=== PATIENT | male | born 1940 ===

== ENCOUNTER 2022-12-26 20:37 | Emergency (ER) | payer MEDICARE, SELFPAY ==
--- NOTE | ~2022-12-26 | CT_ITS ---
EXAMINATION: CT ABDOMEN AND PELVIS WITHOUT CONTRAST CLINICAL INFORMATION: Low back pain. Rule out kidney stone vs. AAA. COMPARISON: None available. TECHNIQUE: Multidetector volumetric imaging was performed from the superior aspect of the liver through the pubic symphysis. Sagittal and coronal reformatted images were obtained on the technologist's workstation. This CT examination was performed using dose optimization techniques as appropriate, variously including the following: *Automated exposure control *Adjustment of mA and/or kV according to patient size (this includes techniques or standardized protocols for targeted exams where dose is matched to indication/reason for exam; i.e. extremities or head) *Use of iterative reconstruction technique DLP: 423 mGy-cm FINDINGS: LUNG BASES: Calcific atherosclerosis is present in the coronary arteries. Heart is normal in size. LIVER, GALLBLADDER, AND BILIARY TREE: The liver is normal in size, shape, and attenuation. No focal hepatic lesion or biliary ductal dilatation is present. The gallbladder is unremarkable with no evidence of radiopaque gallstones, gallbladder wall thickening, or obvious pericholecystic inflammatory changes. PANCREAS: Mild pancreatic atrophy. No ductal dilatation. SPLEEN: Unremarkable. ADRENAL GLANDS: Unremarkable. KIDNEYS AND URETERS: Multiple right renal cysts, measuring 3.2 cm at the right renal pelvis and 2.8 cm at the posterior aspect of the right interpolar region. No suspicious findings on these unenhanced studies. Kidneys normal in size with mild bilateral perinephric fat stranding. Multiple calcifications are present in the renal sinuses bilaterally at the level of the calyces, favored to correspond to calculi. These measure up to 4 cm in diameter at the lower pole of the right kidney and 5 mm adenopathy pole calyx in the left kidney. No hydroureter or hydronephrosis. BLADDER: A 1.5 cm dependent calculus is present within the bladder. Bladder wall is normal in thickness. GASTROINTESTINAL TRACT: Stomach, small bowel, and colon are normal in caliber. No additional bowel wall thickening. Normal appendix. Moderate to large volume stool is present throughout the colon. There is mild perirectal fat stranding without a clear cause on these images. No significant diverticular disease in this region. Volume of stool at the rectum is relatively small. No intracranial free fluid or free air. ABDOMINAL WALL: No significant hernia is appreciated. Mild anasarca. LYMPH NODES: Retroperitoneal adenopathy is evident in the upper abdomen, the largest of which s 4.8 x 2.9 cm left periaortic lymph node seen on image 25/82 of series 3. A cluster of nodes surrounding the IVC in this region each measure 1.5 to 2 cm in short axis. Additional bilateral iliac chain adenopathy is apparent with a 1.9 cm (short axis) left external iliac node and a 1.2 cm right external iliac node. VASCULAR: Marked calcific atherosclerosis is present throughout the abdominal aorta and branch vessels without appreciable aneurysmal dilatation. PELVIC VISCERA: There is marked heterogeneous enlargement of the prostate gland, measuring 8.3 x 7.6 x 8.5 cm (transverse by AP by craniocaudal) with asymmetric nodular thickening of the left seminal vesicle OSSEOUS STRUCTURES: Marked degenerative spondylosis is present in the lumbar spine with osteophytes in both hips and SI joints. No acute osseous abnormalities. Specifically, no aggressive osseous lesions are identified. CT/CT abdomen pelvis wo IV con IMPRESSION: 1. Marked heterogeneous enlargement of the prostate gland with asymmetric nodular thickening of the left seminal vesicle. Particularly in light of the iliac and para-aortic and retroperitoneal adenopathy, urologic consultation is advised as these findings are concerning for a primary prostatic malignancy. 2. Bilateral nephrolithiasis without evidence of obstructive uropathy. A 1.5 cm calculus is present in the bladder. 3. Moderate to large volume of stool throughout the colon. Mild perirectal fat stranding is of uncertain etiology, though could be due to a mild proctitis. No significant diverticular disease in this region. 4. Marked degenerative spondylosis in the lumbar spine. Fleischner guidelines were followed.
[2022-12-26 20:56] VITALS: BP 140/60; PULSE 129; O2SAT 97
[2022-12-26 21:03] VITALS: BP 168/72; PULSE 102; RESP 17; TEMP 37; O2SAT 96
[2022-12-26 21:12] VITALS: BMI 23.5
[2022-12-26 21:13] LABS: MANUAL DIFF FLAG NO
[2022-12-26 21:17] LABS: Basophils Percent Auto 0.3 % (0-2); Eosinophils Absolute Auto 0.1 X10*3/uL (0.0-0.4); Eosinophils Percent Auto 1.1 % (0-4); Hematocrit 38.5 % (42.0-52.0); Hemoglobin 13.2 g/dl (14.0-18.0); Imm Gran Abs Auto 0.04 X10*3/uL (0.00-0.03); Imm Gran Pct Auto 0.4 % (0.0-0.4); Lymphocytes Absolute Auto 0.8 X10*3/uL (1.2-4.9); Lymphocytes Percent Auto 7.4 % (20-40); Mean Corpuscular HGB Conc 34.3 g/dl (31.0-36.0); Mean Corpuscular Hemoglobin 30.3 pg (27.0-33.0); Mean Corpuscular Volume 88.3 fL (80.0-98.0); Mean Platelet Volume 9.7 fL (9.4-12.4); Monocytes Absolute Auto 0.9 X10*3/uL (0.1-1.2); Monocytes Percent Auto 7.7 % (2-11); Neutrophils Absolute Auto 9.5 x10*3/uL (2.0-8.3); Neutrophils Percent Auto 83.1 % (45-73); Platelet Count 325 X10*3/uL (160-400); Red Blood Count 4.36 X10*6/uL (4.60-5.80); Red Cell Distribution Width 12.8 % (11.0-16.0); White Blood Count 11.4 X10*3/uL (4.8-10.8)
[2022-12-26 21:32] LABS: Alanine Aminotransferase 21 U/L (0-40); Albumin Level 4.2 g/dL (3.5-5.0); Alkaline Phosphatase 102 U/L (39-117); Anion Gap 18 (12-20); Aspartate Amino Transferase 16 U/L (5-37); Bilirubin Direct 0.2 mg/dL (0.0-0.5); Bilirubin Total 0.5 mg/dL (0.0-1.0); Blood Urea Nitrogen 28 mg/dL (9-16); Calcium 9.7 mg/dL (8.4-10.2); Carbon Dioxide 20 mmol/L (22-29); Chloride 105 mmol/L (96-108); Estimated Glomerular Filt Rate > 60; Glucose Random 176 mg/dL (60-115); Lipase 8 U/L (8-78); Potassium 4.5 mmol/L (3.3-5.1); Sodium 138 mmol/L (135-145); Total Protein 7.2 g/dL (6.5-8.0)
--- NOTE | 2022-12-26 22:23 | MHC.EDTECH ---
This Tech assumed care of this Pt upon arrival. Pt changed over into a hospital gown. REd socks and fall risk wristband put on Pt. Pt given a urinal to void and Urine collection will be sent to the lab for Processing
[2022-12-26 23:08] LABS: Color Urine Yellow; Glucose Urine UA Negative (Negative); Leukocyte Esterase Urine Small (1+) (Negative); Nitrite Urine Negative (Negative); UMIC TRIGGER UACC YES; Urine Blood Negative (Negative); Urine Ketones Negative (Negative); Urine Protein 100 (2+) mg/dL (Neg-Trace)
[2022-12-26 23:11] LABS: Bacteria Urine None Seen (None Seen); Hyaline Casts Urine 0-2 /LPF (0-2); RBC Urine 0-2 /HPF (0-2); UACC Culture Trigger YES
[2022-12-26 23:13] LABS: Appearance Urine Clear
--- NOTE | 2022-12-26 23:56 | ED.BACK ---
HPI - Back Pain/Injury General Chief Complaint: Back Pain/Injury Stated Complaint: low back pain x 1 week Time Seen by Provider: 12/26/22 23:47 Source: patient Mode of arrival: ambulatory Limitations: no limitations History of Present Illness HPI Narrative: 82-year-old male came in for evaluation of low back pain. Pain started about 1 week ago, pain is now more constant triggered by movement or twisting his body, no relieving factor, patient also been complaining of frequency urination but no dysuria or hematuria, patient has been moving heavy stuff out of his house which is likely precipitated his low back pain parents. No recent fall, no recent injury to the low back area. Related Data Previous Rx's Medication Instructions Recorded apixaban 2.5 mg tablet (Eliquis) 2.5 mg PO BID #60 tabs 12/27/22 cefuroxime axetil 500 mg tablet 500 mg PO BID #14 tabs 12/27/22 oxycodone 5 mg tablet 5 mg PO Q8H PRN pain #10 tabs 12/27/22 Allergies Allergy/AdvReac Type Severity Reaction Status Date / Time No Known Allergies Allergy Mild NOT Verified 12/26/22 21:17 [No Known Allergies*] APPLICABLE Review of Systems Review of Systems: All other systems are reviewed and are negative Constitutional: Reports as per HPI and Reports no additional constitutional complaints Eyes: Reports as per HPI and Reports no additional eye complaints Reports system reviewed and no additional complaints, except as documented Cardiovascular: Reports as per HPI and Reports no additional cardiovascular complaints Respiratory: Reports as per HPI and Reports no additional respiratory complaints Gastrointestinal: Reports as per HPI and Reports no additional gastrointestinal complaints Genitourinary: Reports no additional female genitourinary complaints Musculoskeletal: Reports no additional musculoskeletal complaints Skin/Breast: Reports system reviewed and no additional complaints, except as docu Psychiatric: Reports no additional psychiatric complaints Endocrine: Reports no additional endocrine complaints Hematologic/Lymphatic: Reports no additional hematologic/lymphatic complaints Allergic/Immunologic: Reports no additional allergic/immunologic complaints Reports system reviewed and no additional complaints, except as documented and Reports Abnormal speech present [facility] Social History Social History Alcohol intake: former Smoked in Last 30 Days: Yes Advance Directives: No Advance Directives Information Provided: No Physical Exam Vital Signs: Vital Signs: Last Vital Signs Temp 98.6 F 12/26/22 21:03 Pulse 92 12/27/22 00:54 Resp 16 12/27/22 00:54 BP 146/73 H 12/27/22 00:54 Pulse Ox 93 12/27/22 00:54 O2 Del Method Room Air 12/27/22 00:54 BMI result Body Mass Index 23.5 Vital signs have been reviewed as appeared to be correct. Blood pressure normal. Heart rate normal. Respiration rate normal. Temperature normal. Oxygen saturation normal. Appearance: Alert. Oriented X3. No acute distress. Head: Normal external exam. Normocephalic. Atraumatic. No Nair signs noted. No raccoon eyes noted Eyes: PERRLA. EOMI. Conjunctiva and sclera normal. Eyelids normal. ENT: TM's Normal. Pharynx normal. Uvula midline. Moist mucous membranes. No trismus noted. No drooling noted. No muffled voice noted. Neck: Normal inspection. Neck supple. FROM. No adenopathy. Thyroid Normal. No meningeal signs. No neck mass noted. CVS: Normal heart rate and rhythm. Heart sound normal. No murmurs noted. Pulses normal throughout. Respiratory: No respiratory distress. Painless inspiration. Breath sounds normal. No wheezes/rales/rhonchi noted. Chest nontender. No accessory muscle usage noted or decreased air movement noted. Abdomen: Soft and nontender. Bowel sounds normal in all 4 quadrants. No distention noted. No organomegaly noted. No visible injury noted. Back: No CVA tenderness. Full range of motion noted. Sacral lumbar area of tenderness, no step-off, no deformity. Skin: Skin warm and dry. Normal skin color. Normal skin turgor. No rashes/lesions/lacerations noted. Extremities: No lower extremity edema. Extremities exhibit normal range of motion. Extremities nontender. Neuro: Oriented X 3. Cranial nerve exam: II-XII are grossly intact No motor deficit. No sensory deficit. Reflexes normal. Course Course Course Narrative: Low back pain, history of heavy lifting, UTI, CT show no AAA or kidney stone, finding our concern of prostate malignancy patient will be given instruction to follow-up with urologist. Will discharge the patient on cefuroxime for UTI and oxycodone to help with pain. Reevaluation(s) Reevaluation #1: While patient in the emergency department to start to complain of lower sternal chest pain that lasted for about 5 minutes EKG, troponin was checked was unremarkable. EKG is showing atrial fibrillation at 90 beats per minutes. Patient is not taking anticoagulation will start the patient on anticoagulation and follow up with gear hobber. Time: 03:00 Medications Administered Discontinued Medications Generic Name Dose Route Start Last Admin Trade Name Singh PRN Reason Stop Dose Admin Acetaminophen 650 mg 12/26/22 23:54 12/27/22 00:28 Acetaminophen 325 Mg Tablet PO 12/26/22 23:55 650 mg ONCE ONE Administration Cefuroxime Axetil 500 mg 12/26/22 23:54 12/27/22 00:27 Cefuroxime Axetil 500 Mg Tablet PO 12/26/22 23:55 500 mg ONCE ONE Administration Oxycodone HCl 5 mg 12/26/22 23:54 12/27/22 00:27 Oxycodone Hcl Immed Release 5 Mg Tablet PO 12/26/22 23:55 5 mg ONCE ONE Administration Medical Decision Making Differential Diagnosis Differential Diagnoses: The differential diagnosis associated with the presentation includes (Kidney stone, UTI, pyelonephritis, colitis, diverticulitis, AAA, electrolytes abnormalities, severe anemia.) Admission/Observation Consideration of admission/observation: Escalation of care including admission/observation considered Lab Data MDM Lab Attestation statement: I reviewed the patient's lab results. 12/26/22 21:10 12/26/22 21:10 Labs: Lab Results 12/26/22 12/26/22 12/26/22 Range/Units 21:10 21:10 22:30 WBC 11.4 H (4.8-10.8) X10*3/uL RBC 4.36 L (4.60-5.80) X10*6/uL Hgb 13.2 L (14.0-18.0) g/dl Hct 38.5 L (42.0-52.0) % MCV 88.3 (80.0-98.0) fL MCH 30.3 (27.0-33.0) pg MCHC 34.3 (31.0-36.0) g/dl RDW 12.8 (11.0-16.0) % Plt Count 325 (160-400) X10*3/uL MPV 9.7 (9.4-12.4) fL Immature Gran % (Auto) 0.4 (0.0-0.4) % Neut % (Auto) 83.1 H (45-73) % Lymph % (Auto) 7.4 L (20-40) % [place] % (Auto) 7.7 (2-11) % Eos % (Auto) 1.1 (0-4) % Baso % (Auto) 0.3 (0-2) % Lymph # (Auto) 0.8 L (1.2-4.9) X10*3/uL [place] # (Auto) 0.9 (0.1-1.2) X10*3/uL Eos # (Auto) 0.1 (0.0-0.4) X10*3/uL Baso # (Auto) 0.0 (0.0-0.2) X10*3/uL Abs Immat Gran (auto) 0.04 H (0.00-0.03) X10*3/uL Absolute Neuts (auto) 9.5 H (2.0-8.3) x10*3/uL Absolute Nucleated RBC 0.000 (0.0-0.012) X10*3/uL Nucleated RBC % (auto) 0.0 (0.0-0.2) /100WBC Sodium 138 (135-145) mmol/L Potassium 4.5 (3.3-5.1) mmol/L Chloride 105 (96-108) mmol/L Carbon Dioxide 20 L (22-29) mmol/L Anion Gap 18 (12-20) BUN 28 H (9-16) mg/dL Creatinine 1.10 (0.5-1.4) mg/dL Estim Creat Clear Calc 50.0 Estimated GFR > 60 POC Glucose (60-115) mg/dL Random Glucose 176 H (60-115) mg/dL Calcium 9.7 (8.4-10.2) mg/dL Total Bilirubin 0.5 (0.0-1.0) mg/dL Direct Bilirubin 0.2 (0.0-0.5) mg/dL AST 16 (5-37) U/L ALT 21 (0-40) U/L Alkaline Phosphatase 102 (39-117) U/L Troponin I High Sens (<3.5-35.0) ng/L Total Protein 7.2 (6.5-8.0) g/dL Albumin 4.2 (3.5-5.0) g/dL Lipase 8 (8-78) U/L Urine Color Yellow Urine Appearance Clear Urine pH 5.0 (5.0-9.0) Ur Specific [place] 1.020 (1.005-1.025) Urine Protein 100 (2+) H (Neg-Trace) mg/dL Urine Glucose (UA) Negative (Negative) mg/dL Urine Ketones Negative (Negative) mg/dL Urine Blood Negative (Negative) Urine Nitrite Negative (Negative) Ur Leukocyte Esterase Small (1+) H (Negative) Urine RBC 0-2 (0-2) /HPF Urine WBC 11-20 H (0-5) /HPF Ur Squamous Epith Cells 3-5 (0-2) /HPF Urine Bacteria None Seen (None Seen) Hyaline Casts 0-2 (0-2) /LPF 12/27/22 12/27/22 Range/Units 00:56 01:47 WBC (4.8-10.8) X10*3/uL RBC (4.60-5.80) X10*6/uL Hgb (14.0-18.0) g/dl Hct (42.0-52.0) % MCV (80.0-98.0) fL MCH (27.0-33.0) pg MCHC (31.0-36.0) g/dl RDW (11.0-16.0) % Plt Count (160-400) X10*3/uL MPV (9.4-12.4) fL Immature Gran % (Auto) (0.0-0.4) % Neut % (Auto) (45-73) % Lymph % (Auto) (20-40) % [place] % (Auto) (2-11) % Eos % (Auto) (0-4) % Baso % (Auto) (0-2) % Lymph # (Auto) (1.2-4.9) X10*3/uL [place] # (Auto) (0.1-1.2) X10*3/uL Eos # (Auto) (0.0-0.4) X10*3/uL Baso # (Auto) (0.0-0.2) X10*3/uL Abs Immat Gran (auto) (0.00-0.03) X10*3/uL Absolute Neuts (auto) (2.0-8.3) x10*3/uL Absolute Nucleated RBC (0.0-0.012) X10*3/uL Nucleated RBC % (auto) (0.0-0.2) /100WBC Sodium (135-145) mmol/L Potassium (3.3-5.1) mmol/L Chloride (96-108) mmol/L Carbon Dioxide (22-29) mmol/L Anion Gap (12-20) BUN (9-16) mg/dL Creatinine (0.5-1.4) mg/dL Estim Creat Clear Calc Estimated GFR POC Glucose 153 H (60-115) mg/dL Random Glucose (60-115) mg/dL Calcium (8.4-10.2) mg/dL Total Bilirubin (0.0-1.0) mg/dL Direct Bilirubin (0.0-0.5) mg/dL AST (5-37) U/L ALT (0-40) U/L Alkaline Phosphatase (39-117) U/L Troponin I High Sens 5.6 (<3.5-35.0) ng/L Total Protein (6.5-8.0) g/dL Albumin (3.5-5.0) g/dL Lipase (8-78) U/L Urine Color Urine Appearance Urine pH (5.0-9.0) Ur Specific [place] (1.005-1.025) Urine Protein (Neg-Trace) mg/dL Urine Glucose (UA) (Negative) mg/dL Urine Ketones (Negative) mg/dL Urine Blood (Negative) Urine Nitrite (Negative) Ur Leukocyte Esterase (Negative) Urine RBC (0-2) /HPF Urine WBC (0-5) /HPF Ur Squamous Epith Cells (0-2) /HPF Urine Bacteria (None Seen) Hyaline Casts (0-2) /LPF Independent Interpretation I performed an independent interpretation of an: CT Scan (Abdomen pelvis: No AAA, no kidney stones current) Radiology Impression Discussion of test interpretation with radiology: I have reviewed the radiologist's reading. Discharge Plan Discharge Clinical Impression: Strain of lumbar region, Urinary tract infection, Enlarged prostate, Atrial fibrillation Patient Disposition: Home, Self-Care Instructions: Oxycodone, Slow Release (By mouth), Urinary Tract Infection in Men (DC), Back Pain (ED) Prescriptions: New cefuroxime axetil 500 mg tablet 500 mg PO BID Qty: 14 0RF oxycodone 5 mg tablet 5 mg PO Q8H PRN (Reason: pain) Qty: 10 0RF Rx Instructions: Partial Fill upon patient request. Eliquis 2.5 mg tablet 2.5 mg PO BID Qty: 60 0RF Referrals: Nate Mendez MD [Physician] - Jett Robledo MD [Physician] -
[2022-12-27] MEDS: oxyCODONE HCl Immed Release 5 MG TABLET PO (00:27)
[2022-12-27] MEDS: Acetaminophen 325 MG TABLET 650 MG PO (00:28)
--- NOTE | 2022-12-27 00:32 | PC.NURSE ---
Pt ca&ox3, no signs of distress. Pt denies chest and sob. Reports 10/10 left flank pain. Pt medicated per mar. Will continue to monitor.
[2022-12-27 00:54] VITALS: BP 146/73; PULSE 92; RESP 16; O2SAT 93
[2022-12-27 01:01] LABS: Glucose, Whole Blood 153 mg/dL (60-115)
--- NOTE | 2022-12-27 01:28 | ECG_ITS ---
Test Reason : chest pain Blood Pressure : / mmHG Vent. Rate : 090 BPM Atrial Rate : 000 BPM P-R Int : 000 ms QRS Dur : 074 ms QT Int : 346 ms P-R-T Axes : 000 -16 040 degrees QTc Int : 423 ms Atrial fibrillation Low voltage QRS Inferior infarct , age undetermined Abnormal ECG When compared with ECG of 20-FEB-2013 05:38, Atrial fibrillation has replaced Sinus rhythm Referred By: Hafsa Lopes Electronically Signed By:Cosmo Crespo
[2022-12-27 02:13] LABS: Troponin-I High Sensitivity 5.6 ng/L (<3.5-35.0)
[2022-12-27] MEDS: Apixaban 2.5 MG TABLET PO (03:35)
--- NOTE | 2022-12-27 03:40 | PC.NURSE ---
Pt ca&ox3, no signs of distress. Pt medicated per sep. Pt reports 5/10 pain with some effective pain relief. Will continue to monitor.
== END 2022-12-27 05:02 | disposition home or self-care (01) ==
PROVIDERS: Emergency Provider Emergency Medicine
DX: S39.012A Strain of muscle, fascia and tendon of lower back, initial encounter (principal); I48.91 Unspecified atrial fibrillation; N39.0 Urinary tract infection, site not specified; N40.0 Benign prostatic hyperplasia without lower urinary tract symptoms; R10.2 Pelvic and perineal pain; X58.XXXA Exposure to other specified factors, initial encounter; Y93.9 Activity, unspecified; Y92.9 Unspecified place or not applicable; Y99.9 Unspecified external cause status; Z79.899 Other long term (current) drug therapy
CPT/HCPCS: 36415; 74176; 80048; 80076; 81001; 81003; 82947; 83690; 84484; 85025; 87086; 93005; 99284; 99285

== ENCOUNTER 2022-12-31 08:45 | Inpatient (IN) | payer MEDICARE, SELFPAY ==
--- NOTE | ~2022-12-31 | US_ITS ---
EXAMINATION: US RETROPERITONEAL LIMITED (RENAL ONLY) CLINICAL INFORMATION: Acute kidney insufficiency. Rule out hydronephrosis. COMPARISON: Previous CT of the abdomen and pelvis 12/27/2022 TECHNIQUE: Grayscale and color imaging of the kidneys FINDINGS: RIGHT KIDNEY: 12 x 6 x 6.8 cm (SAG x AP x TRV). The kidney is normal in size, contour, and echogenicity. Renal cortical thickness is normal. 4.4 x 3.4 cm slightly complex peripelvic cyst in the lower pole with septation. 2.4 x 2.5 x 2 cm simple cyst in the upper pole. Mild right hydronephrosis. No renal stone. LEFT KIDNEY: 12.8 x 5.9 x 6.1 cm (SAG x AP x TRV). The kidney is normal in size, contour, and echogenicity. Renal cortical thickness is normal. No calculi or focal parenchymal lesions. Mild left hydronephrosis. US/US renal BI IMPRESSION: Mild bilateral hydronephrosis. This appears new or increased compared to previous CT scan.
--- NOTE | ~2022-12-31 | US_ITS ---
EXAMINATION: US VENOUS ULTRASOUND WITH DOPPLER LOWER EXTREMITY, BILATERAL CLINICAL INFORMATION: Lower extremity edema COMPARISON: None available. TECHNIQUE: Ultrasound of the deep veins is performed from the hip to the calf with compression sonography and color and pulse Doppler assessment. Spectral analysis with color-flow imaging is performed. FINDINGS: RIGHT: There is normal venous compression and respiratory variation and augmented flow. The visualized common femoral vein, superficial femoral vein, profunda femoral vein, popliteal vein, and the trifurcation region shows no evidence of deep venous thrombosis. There is no significant popliteal fossa cyst. LEFT: There is normal venous compression and respiratory variation and augmented flow. The visualized common femoral vein, superficial femoral vein, profunda femoral vein, popliteal vein, and the trifurcation region shows no evidence of deep venous thrombosis. There is no significant popliteal fossa cyst. If the patient's symptoms persist, followup ultrasound in 5 days 7 days might be of value to exclude proximal propagation from a non-visualized calf vein. US/US venous duplex LE BI IMPRESSION: No DVT demonstrated in the bilateral lower extremities.
--- NOTE | ~2022-12-31 | MR_ITS ---
EXAMINATION: MR BRAIN WITHOUT AND WITH CONTRAST CLINICAL INFORMATION: Prostate cancer. Rule out brain metastases. Encephalopathy. COMPARISON: Head CT dated 12/31/2022. Brain MRI dated 01/29/2009. TECHNIQUE: Multiplanar, multisequence imaging of the brain was performed before and after the intravenous administration of 6.5 mL of Gadavist. FINDINGS: Moderate chronic white matter microangiopathic changes are present with scattered chronic infarcts in the centrum semiovale bilaterally. There are chronic infarcts in the oscar and in the medial aspect of the right cerebellar hemisphere. Small chronic lacunar infarcts also visible in the left thalamus and right basal ganglia. There is qynxkddj-ew-ehwoyw diffuse brain parenchymal volume loss with concordant ex vacuo dilatation of the ventricles. No diffusion abnormalities are identified to suggest an acute infarct. No evidence of hydrocephalus. No mass effect or midline shift is seen. No extra-axial fluid collections are seen. There is no abnormal parenchymal or leptomeningeal enhancement. A 2.6 cm sclerotic focus in the high medial left parietal calvarium near the vertex and adjacent to the sagittal suture is unchanged when compared to CT imaging from 12/31/2022 and a more remote MRI from 01/29/2009, indicative for benignity. The gradient refocused acquisition is normal. The craniovertebral junction and midline structures are normal. The major intracranial flow voids at the level of the [place] of [place] are preserved. The dural venous sinus flow voids are maintained. There is a ilce-hy-azctlhzz left mastoid effusion and trace fluid in the dependent right mastoid air cells. Mild ethmoid sinus mucosal thickening noted. MR/MR head/brain wo/w con IMPRESSION: No acute intracranial process. No evidence of intracranial metastatic disease. Bbzmjdrd-lm-evqsqg diffuse brain parenchymal volume loss with scattered chronic infarcts in the brainstem, cerebellum, the cerebral white matter, left thalamus, and the right basal ganglia. Moderate chronic white matter microangiopathy. Nonspecific ohyr-oc-apjpeggv left mastoid effusion with a mild amount of fluid in the dependent right mastoid air cells. Normal appearance of the nasopharyngeal soft tissues.
--- NOTE | ~2022-12-31 | NM_ITS ---
EXAMINATION: NM BONE SCAN OF THE WHOLE BODY CLINICAL INFORMATION: Prostate cancer. COMPARISON: CT of the abdomen and pelvis done on 12/27/[address] of the head done on 12/31/2022. TECHNIQUE: Multiple gamma scintillation camera images of the whole body were performed 3.75 hours following the intravenous administration of 25 mCi Tc-99m MDP. The radiotracer was injected through left wrist superficial vein without complications. FINDINGS: In the head, no suspicious focal osseous disease. In the thoracic cage and upper extremities, linear abnormal increased radiotracer activity is present involving the posterior outer aspect of the left eighth rib highly suspicious for metastatic disease. Subtle foci of increased radiotracer activities are also present along the anterolateral aspect of the left upper to mid thoracic cage, best seen in the ESTONIAN projection and also posteromedial aspect of the right ninth rib, also suspicious for metastatic disease. In the spine, bilateral focal increased radiotracer activity is present at L1 on either side of the midline, may represent degenerative changes versus early subtle changes of metastases. In the pelvis, no definite focal osseous disease to suspect metastasis. Subtle heterogeneous activity at the upper part of the sacrum at midline and adjacent posterior medial aspect of both iliac bone around the SI joints are present. In the lower extremities, no definite focal osseous disease to suspect metastasis. Arthritic changes are noted at both knees. No other definite bony abnormalities are noted. The urinary bladder and faint visualization of both kidneys are noted. NM/NM bone scan whole body IMPRESSION: 1. Abnormal scan showing linear abnormal increased radiotracer activity at posterior outer aspect of the left eighth rib highly suspicious for osseous metastasis. Subtle additional foci of increased radiotracer activities are also noted along the anterolateral aspect of the left upper to mid thoracic cage and posteromedial aspect of the right ninth rib, also suspicious for likely evolving metastasis. 2. Nonspecific abnormal increased radiotracer activity at L1 on either side of the midline, may represent degenerative changes versus early subtle changes of metastases. 3. Follow-up PSMA PET CT scan (more sensitive and specific imaging modality as compared to the bone scan and also detects soft tissue disease) may be considered for further full detail evaluation, if clinically appropriate.
--- NOTE | ~2022-12-31 | XR_ITS ---
EXAMINATION: XR CHEST CLINICAL INFORMATION: Shortness of breath COMPARISON: Previous chest x-ray July 2019 TECHNIQUE: Frontal view of the chest was obtained. FINDINGS: No significant abnormality is noted involving the heart, lungs, mediastinum, bony thorax or soft tissues. Degenerative changes of the spine. XR/XR chest 1V IMPRESSION: Unremarkable examination.
--- NOTE | ~2022-12-31 | CT_ITS ---
EXAMINATION: CT HEAD WITHOUT CONTRAST CLINICAL INFORMATION: 82-year-old male status post fall COMPARISON: 12/29/2008, images are not available TECHNIQUE: Contiguous axial imaging was performed from the skull base to vertex without intravenous administration of contrast. This CT examination was performed using dose optimization techniques as appropriate, variously including the following: *Automated exposure control *Adjustment of mA and/or kV according to patient size (this includes techniques or standardized protocols for targeted exams where dose is matched to indication/reason for exam; i.e. extremities or head) *Use of iterative reconstruction technique DLP: 752 mGy-cm FINDINGS: There is no evidence of acute intracranial hemorrhage or territorial infarction. Morris-white matter differentiation is preserved. No abnormal mass effect or midline shift. No extra-axial fluid collections. Patchy periventricular and deep white matter hypoattenuation consistent with sequela of chronic microangiopathy. There is ventricular and sulci prominence due to global volume loss. There is lacunar infarct in the right cerebellar hemisphere, as a sequela of remote cerebellar stroke. No acute osseous findings. No soft tissue abnormalities. The mastoid air cells and the other paranasal sinuses are well aerated. CT/CT head/brain wo IV con IMPRESSION: 1. No acute intracranial pathology. 2. 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 3. Lacunar infarct in the right side of the cerebellum
--- NOTE | 2022-12-31 08:47 | ED_ITS ---
HPI - Fall General Chief Complaint: Fall Stated Complaint: Fall, on floor x 4 hours per EMS Time Seen by Provider: 12/31/22 08:47 Source: patient Mode of arrival: ambulatory Limitations: no limitations History of Present Illness HPI Narrative: Patient's history of prostate cancer seen in the CT scan has not seen any urologist, AFib, COPD, diabetic taking metformin was seen here on 12/26 and diagnosed a new onset AFib with possible prostate cancer started on Eliquis also had slight UTI but urine culture was negative patient taking Ceftin and Eliquis today he comes here because still feeling weak lowered himself to the floor and laid down for some time does not know for how long likely 4-5 hours denies any injury feels weak and exhausted Related Data Previous Rx's Medication Instructions Recorded apixaban 2.5 mg tablet (Eliquis) 2.5 mg PO BID #60 tabs 12/27/22 cefuroxime axetil 500 mg tablet 500 mg PO BID #14 tabs 12/27/22 oxycodone 5 mg tablet 5 mg PO Q8H PRN pain #10 tabs 12/27/22 Allergies Allergy/AdvReac Type Severity Reaction Status Date / Time No Known Allergies Allergy Mild NOT Verified 12/26/22 21:17 [No Known Allergies*] APPLICABLE Review of Systems Review of Systems: Yes all other systems are reviewed and are negative [facility] Past Medical History Medical History (Updated 12/31/22 @ 13:49 by Frankie Omer MD) Atrial fibrillation Diabetes mellitus Prostate cancer Social History Social History Alcohol intake: former Smoked in Last 30 Days: Yes Use of substances other than those prescribed or required for medical reasons: No Advance Directives: No Physical Exam Vital Signs: Vital Signs: Last Vital Signs Temp 98.4 F 12/31/22 10:27 Pulse 98 12/31/22 10:27 Resp 15 12/31/22 10:27 BP 133/73 12/31/22 10:27 Pulse Ox 95 12/31/22 10:27 O2 Del Method Room Air 12/31/22 10:27 BMI result Body Mass Index 24.2 Appearance: Alert. Oriented X3. No acute distress. Unkept dishevelled Eyes: PERRLA, No Nystagmus ENT: Pharynx normal. Oral Mucosa moist Neck: Normal inspection. Neck supple. CVS: Irregular irregular heart rate, Pulses normal. Respiratory: No respiratory distress. Equal air entry bilateral, no wheezing/rales/rhonchi Abdomen: Soft and nontender. Bowel sounds are present, no mass palpable, no CVA tenderness Skin: Skin warm and dry. Normal skin color. Normal skin turgor. Extremities:2+ lower extremity edema. No calf tenderness Neuro: Oriented X 3. No motor deficit. No sensory deficit.No cerebellar signs , cranial nerves II-XII intact Medications Administered Discontinued Medications Generic Name Dose Route Start Last Admin Trade Name Freq PRN Reason Stop Dose Admin Sodium Chloride 1,000 mls @ 999 mls/hr 12/31/22 09:02 12/31/22 10:18 Ns IV 12/31/22 10:02 999 mls/hr .Q1H1M ONE Administration Medical Decision Making Lab Data 12/31/22 09:56 12/31/22 09:56 Labs: Lab Results 12/31/22 12/31/22 12/31/22 Range/Units 09:14 09:55 09:55 WBC (4.8-10.8) X10*3/uL RBC (4.60-5.80) X10*6/uL Hgb (14.0-18.0) g/dl Hct (42.0-52.0) % MCV (80.0-98.0) fL MCH (27.0-33.0) pg MCHC (31.0-36.0) g/dl RDW (11.0-16.0) % Plt Count (160-400) X10*3/uL MPV (9.4-12.4) fL Immature Gran % (Auto) (0.0-0.4) % Neut % (Auto) (45-73) % Lymph % (Auto) (20-40) % [place] % (Auto) (2-11) % Eos % (Auto) (0-4) % Baso % (Auto) (0-2) % Lymph # (Auto) (1.2-4.9) X10*3/uL [place] # (Auto) (0.1-1.2) X10*3/uL Eos # (Auto) (0.0-0.4) X10*3/uL Baso # (Auto) (0.0-0.2) X10*3/uL Abs Immat Gran (auto) (0.00-0.03) X10*3/uL Absolute Neuts (auto) (2.0-8.3) x10*3/uL Absolute Nucleated RBC (0.0-0.012) X10*3/uL Nucleated RBC % (auto) (0.0-0.2) /100WBC PT 16.6 H (10.0-13.1) SEC INR 1.4 H (0.9-1.1) Sodium (135-145) mmol/L Potassium (3.3-5.1) mmol/L Chloride (96-108) mmol/L Carbon Dioxide (22-29) mmol/L Anion Gap (12-20) BUN (9-16) mg/dL Creatinine (0.5-1.4) mg/dL Estim Creat Clear Calc Estimated GFR Random Glucose (60-115) mg/dL Lactic Acid 1.9 (0.5-2.0) mmol/L Calcium (8.4-10.2) mg/dL Total Bilirubin (0.0-1.0) mg/dL AST (5-37) U/L ALT (0-40) U/L Alkaline Phosphatase (39-117) U/L Total Creatine Kinase (38-174) U/L Total Protein (6.5-8.0) g/dL Albumin (3.5-5.0) g/dL Prostate Specific Ag (<0.05-4.0) ng/mL Urine Color Yellow Urine Appearance Clear Urine pH 5.0 (5.0-9.0) Ur Specific [place] 1.015 (1.005-1.025) Urine Protein 30 (1+) H (Neg-Trace) mg/dL Urine Glucose (UA) Negative (Negative) mg/dL Urine Ketones Negative (Negative) mg/dL Urine Blood Small (1+) H (Negative) Urine Nitrite Negative (Negative) Ur Leukocyte Esterase Small (1+) H (Negative) Urine RBC 3-5 H (0-2) /HPF Urine WBC 6-10 H (0-5) /HPF Ur Squamous Epith Cells 6-10 (0-2) /HPF Urine Bacteria None Seen (None Seen) Hyaline Casts 3-5 (0-2) /LPF 12/31/22 12/31/22 Range/Units 09:56 09:56 WBC 12.0 H (4.8-10.8) X10*3/uL RBC 4.19 L (4.60-5.80) X10*6/uL Hgb 12.7 L (14.0-18.0) g/dl Hct 37.2 L (42.0-52.0) % MCV 88.8 (80.0-98.0) fL MCH 30.3 (27.0-33.0) pg MCHC 34.1 (31.0-36.0) g/dl RDW 13.1 (11.0-16.0) % Plt Count 356 (160-400) X10*3/uL MPV 9.7 (9.4-12.4) fL Immature Gran % (Auto) 0.4 (0.0-0.4) % Neut % (Auto) 85.1 H (45-73) % Lymph % (Auto) 4.5 L (20-40) % [place] % (Auto) 8.9 (2-11) % Eos % (Auto) 0.8 (0-4) % Baso % (Auto) 0.3 (0-2) % Lymph # (Auto) 0.5 L (1.2-4.9) X10*3/uL [place] # (Auto) 1.1 (0.1-1.2) X10*3/uL Eos # (Auto) 0.1 (0.0-0.4) X10*3/uL Baso # (Auto) 0.0 (0.0-0.2) X10*3/uL Abs Immat Gran (auto) 0.05 H (0.00-0.03) X10*3/uL Absolute Neuts (auto) 10.2 H (2.0-8.3) x10*3/uL Absolute Nucleated RBC 0.000 (0.0-0.012) X10*3/uL Nucleated RBC % (auto) 0.0 (0.0-0.2) /100WBC PT (10.0-13.1) SEC INR (0.9-1.1) Sodium 138 (135-145) mmol/L Potassium 4.3 (3.3-5.1) mmol/L Chloride 104 (96-108) mmol/L Carbon Dioxide 22 (22-29) mmol/L Anion Gap 16 (12-20) BUN 40 H (9-16) mg/dL Creatinine 1.44 H (0.5-1.4) mg/dL Estim Creat Clear Calc 35.5 Estimated GFR 47 Random Glucose 192 H (60-115) mg/dL Lactic Acid (0.5-2.0) mmol/L Calcium 9.5 (8.4-10.2) mg/dL Total Bilirubin 0.7 (0.0-1.0) mg/dL AST 21 (5-37) U/L ALT 27 (0-40) U/L Alkaline Phosphatase 98 (39-117) U/L Total Creatine Kinase 137 (38-174) U/L Total Protein 6.9 (6.5-8.0) g/dL Albumin 3.9 (3.5-5.0) g/dL Prostate Specific Ag 273.74 H (<0.05-4.0) ng/mL Urine Color Urine Appearance Urine pH (5.0-9.0) Ur Specific [place] (1.005-1.025) Urine Protein (Neg-Trace) mg/dL Urine Glucose (UA) (Negative) mg/dL Urine Ketones (Negative) mg/dL Urine Blood (Negative) Urine Nitrite (Negative) Ur Leukocyte Esterase (Negative) Urine RBC (0-2) /HPF Urine WBC (0-5) /HPF Ur Squamous Epith Cells (0-2) /HPF Urine Bacteria (None Seen) Hyaline Casts (0-2) /LPF Discharge Plan Discharge Clinical Impression: Atrial fibrillation with rapid ventricular response, Prostate cancer, Weakness Patient Disposition: Admitted As Inpatient
[2022-12-31 08:54] VITALS: BP 145/85; BP 159/73; PULSE 112; PULSE 114; RESP 22; TEMP 37.3; O2SAT 95; BMI 24.2
--- NOTE | 2022-12-31 09:03 | ECG_ITS ---
Test Reason : fall Blood Pressure : / mmHG Vent. Rate : 096 BPM Atrial Rate : 000 BPM P-R Int : 000 ms QRS Dur : 080 ms QT Int : 332 ms P-R-T Axes : 000 -18 065 degrees QTc Int : 419 ms Atrial fibrillation Low voltage QRS Inferior infarct (cited on or before 27-DEC-2022) Abnormal ECG When compared with ECG of 27-DEC-2022 01:39, No significant change was found Referred By: Frankie Omer Electronically Signed By:Cosmo Crespo
[2022-12-31 09:23] LABS: Appearance Urine Clear; Color Urine Yellow; Glucose Urine UA Negative (Negative); Leukocyte Esterase Urine Small (1+) (Negative); Nitrite Urine Negative (Negative); Specific Gravity - Urine 1.015 (1.005-1.025); UMIC TRIGGER UACC YES; Urine Blood Small (1+) (Negative); Urine Ketones Negative (Negative); Urine Protein 30 (1+) mg/dL (Neg-Trace)
[2022-12-31 09:46] LABS: Bacteria Urine None Seen (None Seen); UACC Culture Trigger YES
[2022-12-31 10:02] LABS: MANUAL DIFF FLAG NO
[2022-12-31 10:06] LABS: Basophils Percent Auto 0.3 % (0-2); Eosinophils Absolute Auto 0.1 X10*3/uL (0.0-0.4); Eosinophils Percent Auto 0.8 % (0-4); Hematocrit 37.2 % (42.0-52.0); Hemoglobin 12.7 g/dl (14.0-18.0); Imm Gran Abs Auto 0.05 X10*3/uL (0.00-0.03); Imm Gran Pct Auto 0.4 % (0.0-0.4); Lymphocytes Absolute Auto 0.5 X10*3/uL (1.2-4.9); Lymphocytes Percent Auto 4.5 % (20-40); Mean Corpuscular HGB Conc 34.1 g/dl (31.0-36.0); Mean Corpuscular Hemoglobin 30.3 pg (27.0-33.0); Mean Corpuscular Volume 88.8 fL (80.0-98.0); Mean Platelet Volume 9.7 fL (9.4-12.4); Monocytes Absolute Auto 1.1 X10*3/uL (0.1-1.2); Monocytes Percent Auto 8.9 % (2-11); Neutrophils Absolute Auto 10.2 x10*3/uL (2.0-8.3); Neutrophils Percent Auto 85.1 % (45-73); Platelet Count 356 X10*3/uL (160-400); Red Blood Count 4.19 X10*6/uL (4.60-5.80); Red Cell Distribution Width 13.1 % (11.0-16.0)
[2022-12-31 10:12] LABS: Lactic Acid 1.9 mmol/L (0.5-2.0)
[2022-12-31 10:18] LABS: INTERNATIONAL NORM RATIO 1.4 (0.9-1.1); Prothrombin Time 16.6 SEC (10.0-13.1)
[2022-12-31] MEDS: 0.9 % Sodium Chloride 1,000 ML 999 ML IV (10:18)
[2022-12-31 10:21] LABS: Alanine Aminotransferase 27 U/L (0-40); Albumin Level 3.9 g/dL (3.5-5.0); Alkaline Phosphatase 98 U/L (39-117); Anion Gap 16 (12-20); Aspartate Amino Transferase 21 U/L (5-37); Bilirubin Total 0.7 mg/dL (0.0-1.0); Blood Urea Nitrogen 40 mg/dL (9-16); Calcium 9.5 mg/dL (8.4-10.2); Carbon Dioxide 22 mmol/L (22-29); Chloride 104 mmol/L (96-108); Creatinine Clr Calc Pharmacy 35.5; Estimated Glomerular Filt Rate 47; Glucose Random 192 mg/dL (60-115); Potassium 4.3 mmol/L (3.3-5.1); Sodium 138 mmol/L (135-145); Total Protein 6.9 g/dL (6.5-8.0)
[2022-12-31 10:27] VITALS: BP 133/73; PULSE 98; RESP 15; TEMP 36.9; O2SAT 95
[2022-12-31 13:43] LABS: Prostate Specific Antigen 273.74 ng/mL (<0.05-4.0)
--- NOTE | 2022-12-31 14:28 | PHA.MEDREC ---
Pharmacy Consult ? Medication Reconciliation Pharmacy has completed the medication reconciliation.
[2022-12-31 14:31] VITALS: BP 149/84; PULSE 105; RESP 18
[2022-12-31] MEDS: dilTIAZem HCL 50 MG/10 ML VIAL 10 MG IVPUSH (14:31)
--- NOTE | 2022-12-31 16:05 | PM.IMHP ---
History of Present Illness Date of Service: 12/31/22 Attending physician on admission: Prashnat [facility] Chief Complaint: Genearlized weakness Pt is an 82-year-old male with a PMH significant for recently diagnosed?AFib on Eliquis, nca-ivfzcje-nodqrasbj diabetes, and enlarged prostate who presents to the ED with?generalized weakness. Patient recently presented to the emergency room 5 days prior on 12/26/2022 for evaluation of lower back pain. Patient was found to have new onset AFib with RVR and a likely UTI. CT scan of abdomen and pelvis found a marked heterogeneous enlargement the prostate gland with asymmetric nodular thickening of the left seminal vesicle concerning for primary malignancy. Patient was discharged home on cefuroxime 500 mg p.o. b.i.d. x7 days and advised to follow-up with Urology outpatient about enlarged prostate. Patient states that he presented to the ED today because he was experiencing back pain/spasm while lying on the couch earlier in the day and lowered himself to the floor do stretches back out. Patient was unable to stand or get back up on the couch so he called his brother who came to the house and told the patient he had too many things of his own to do to continue to help him out. The patient's brother then called the ambulance to take him to the hospital. Patient seems overwhelmed at his new diagnoses in uncertain what to moving forward as he apparently lacks home support. Patient denies SI or HI, but seems uncertain as to whether or not he should even seek urology consultation for his possible prostate cancer. Patient notes he has felt ?lousy? and weak the past few days though he is unable to further clarify what this means. Notes he has been incontinent of urine lately, which is new. Complains of back pain and back spasms for the past 3-4 weeks. Has noticed increased leg swelling the past 2 months. Denies fever, chills, nausea, vomiting, abdominal pain, diarrhea. No chest pain/pressure, palpitations. Denies shortness of breath. Patient is a current smoker of 1 pack a day but declines NRT. In the ED patient was afebrile but tachycardic up to 112, tachypneic up to 22, and hypertensive up to 159/73. Labs were significant for leukocytosis of 12.0, H&H of 12.7/37.2, elevated BUN of 40, creatinine 1.44, PSA 273.74. Electrolytes WNL. Lactic acid WNL. Hepatic function baseline. Creatinine kinase 137. CXR showed no evidence of cardiopulmonary process. CT?of head found no acute intracranial pathology, but found chronic global volume loss and microangiopathy, and chronic lacunar infarct in the right side of the cerebellum. EKG demonstrated atrial fibrillation without evidence of ST elevations or depressions. Pt was treated with IVF and diltiazem. Pt will be admitted to the hospital for treatment of generalized weakness in setting of ANTONELLA. Review of Systems Review of Systems: Generalized weakness Incontinence of urine Feeling overwhelmed Back pain and spasms Lower leg edema Denies fever, chills, nausea, vomiting, abdominal pain, diarrhea No chest pain/pressure, palpitations Denies shortness of breath Yes all other systems are reviewed and are negative [facility] Medical History Atrial fibrillation Diabetes mellitus Prostate cancer Social History Household Members: None Housing: House Do you presently have visiting nurse or other home services: No Alcohol intake: former Patient Tobacco Use Status: Former Tobacco user Smoked in Last 30 Days: Yes Use of substances other than those prescribed or required for medical reasons: No Currently Displaying Signs/Symptoms of Drug Intoxication Withdrawal: No Any prior treatment program specific to substance use: No Have you been hit, kicked, punched, or otherwise hurt by someone within the past year? If so, by whom?: No Do you feel safe in your current relationship?: Yes Is there a partner from a previous relationship who is making you feel unsafe now?: No Are you made to feel afraid or neglected: No Advance Directives: No Do you have thoughts of harming others: None Do you have a plan to hurt others: No Plan Recently lost weight without trying: Unsure How much weight loss: Unsure Eating poorly because of decreased appetite: Yes Nutrition screen score: 5 Nutrition Risks: Dental problems and Poor intake 0-25% >4 days Poor oral hygiene: No service: No Current occupational status: retired Meds Allergies Allergy/AdvReac Type Severity Reaction Status Date / Time No Known Allergies Allergy Mild NOT Verified 12/26/22 21:17 [No Known Allergies*] APPLICABLE Active Medications: Current Medications Pharmacy Consult (Consult Rx Perform Med Rec) 1 each MISCELLANE ONCE PRN PRN Reason: Consult order Home Medications Medication Instructions Recorded Confirmed Last Taken Type amlodipine 5 mg tablet 5 mg PO DAILY 12/31/22 12/31/22 Unknown History clopidogrel 75 mg tablet 75 mg PO DAILY 12/31/22 12/31/22 Unknown History lisinopril 40 mg tablet 40 mg PO DAILY 12/31/22 12/31/22 Unknown History metformin 500 mg tablet,extended 2,000 mg PO QAM 12/31/22 12/31/22 Unknown History release 24 hr oxycodone 5 mg tablet 5 mg PO Q8H PRN pain 12/31/22 12/31/22 Unknown History oxycodone-acetaminophen 5 mg-325 1 tab PO DAILY PRN pain 12/31/22 12/31/22 Unknown History mg tablet pravastatin 40 mg tablet 40 mg PO BEDTIME 12/31/22 12/31/22 Unknown History tamsulosin 0.4 mg capsule 0.4 mg PO DAILY 12/31/22 12/31/22 Unknown History Physical Exam Vital Signs and Narrative: Vital Signs: Last Vital Signs Temp 98.4 F 12/31/22 10:27 Pulse 105 H 12/31/22 14:31 Resp 18 12/31/22 14:31 BP 149/84 H 12/31/22 14:31 Pulse Ox 95 12/31/22 10:27 O2 Del Method Room Air 12/31/22 10:27 BMI result Body Mass Index 24.2 Constitutional: Alert, in no acute distress. Mental Status: Oriented to person, place and time. Eyes: Pupils are equal, round, and reactive to light. Ear, Nose, and Throat: Oropharynx clear, mucous membranes dry. Ears and nose without deformities. Trachea midline. Respiratory: Clear to auscultation bilaterally. No wheezing, rales, or rhonchi. Cardiovascular: Irregularly irregular rhythm. Gastrointestinal: Abdomen soft, non-tender, non-distended. Normal bowel sounds. Neurologic: Cranial nerves II-XII are grossly intact bilaterally. No focal neurological deficits. Moves all extremities spontaneously. Skin: No rashes or lesions noted. Musculoskeletal: No cyanosis or clubbing. Extremities: 2+ pitting lower leg edema bilaterally. Psychiatric: Depressed mood and flat affect. Results Labs 12/31/22 09:56 12/31/22 09:56 Labs: Laboratory Results - last 24 hr 12/31/22 12/31/22 12/31/22 09:14 09:55 09:55 MCV MCH MCHC RDW Plt Count MPV Immature Gran % (Auto) Neut % (Auto) Lymph % (Auto) [place] % (Auto) Eos % (Auto) Baso % (Auto) Lymph # (Auto) [place] # (Auto) Eos # (Auto) Baso # (Auto) Abs Immat Gran (auto) Absolute Neuts (auto) Absolute Nucleated RBC Nucleated RBC % (auto) PT 16.6 H INR 1.4 H Anion Gap Estim Creat Clear Calc Estimated GFR Random Glucose Lactic Acid 1.9 Calcium Total Bilirubin AST ALT Alkaline Phosphatase Total Creatine Kinase Total Protein Albumin Prostate Specific Ag Urine Color Yellow Urine Appearance Clear Urine pH 5.0 Ur Specific [place] 1.015 Urine Protein 30 (1+) H Urine Glucose (UA) Negative Urine Ketones Negative Urine Blood Small (1+) H Urine Nitrite Negative Ur Leukocyte Esterase Small (1+) H Urine RBC 3-5 H Urine WBC 6-10 H Ur Squamous Epith Cells 6-10 Urine Bacteria None Seen Hyaline Casts 3-5 12/31/22 12/31/22 09:56 09:56 MCV 88.8 MCH 30.3 MCHC 34.1 RDW 13.1 Plt Count 356 MPV 9.7 Immature Gran % (Auto) 0.4 Neut % (Auto) 85.1 H Lymph % (Auto) 4.5 L [place] % (Auto) 8.9 Eos % (Auto) 0.8 Baso % (Auto) 0.3 Lymph # (Auto) 0.5 L [place] # (Auto) 1.1 Eos # (Auto) 0.1 Baso # (Auto) 0.0 Abs Immat Gran (auto) 0.05 H Absolute Neuts (auto) 10.2 H Absolute Nucleated RBC 0.000 Nucleated RBC % (auto) 0.0 PT INR Anion Gap 16 Estim Creat Clear Calc 35.5 Estimated GFR 47 Random Glucose 192 H Lactic Acid Calcium 9.5 Total Bilirubin 0.7 AST 21 ALT 27 Alkaline Phosphatase 98 Total Creatine Kinase 137 Total Protein 6.9 Albumin 3.9 Prostate Specific Ag 273.74 H Urine Color Urine Appearance Urine pH Ur Specific [place] Urine Protein Urine Glucose (UA) Urine Ketones Urine Blood Urine Nitrite Ur Leukocyte Esterase Urine RBC Urine WBC Ur Squamous Epith Cells Urine Bacteria Hyaline Casts Imaging Radiologist's Impressions: Impressions Chest X-Ray 12/31/22 09:25 IMPRESSION: Unremarkable examination. Head CT 12/31/22 09:26 IMPRESSION: 1. No acute intracranial pathology. 2. 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 3. Lacunar infarct in the right side of the cerebellum Assessment and Plan (1) Atrial fibrillation with rapid ventricular response: Status: Acute (2) Weakness: Status: Acute (3) Prostate cancer: Status: Acute (4) ANTONELLA (acute kidney injury): Status: Acute Plan Pt is an 82-year-old male with a PMH significant for recently diagnosed?AFib on Eliquis, bdy-kchtsap-fpriuehsx diabetes, and enlarged prostate who presents to the ED with?generalized weakness. Patient recently presented to the emergency room 5 days prior on 12/26/2022 for evaluation of lower back pain. Patient was found to have new onset AFib with RVR and a likely UTI. CT scan of abdomen and pelvis found a marked heterogeneous enlargement the prostate gland with asymmetric nodular thickening of the left seminal vesicle concerning for primary malignancy. Patient will be admitted to the hospital for treatment and further evaluation of generalized weakness in the setting of ANTONELLA and UTI ANTONELLA Patient's creatinine 1.44, up from 1.10 5 days prior on 12/26/2022 Likely secondary to dehydration d/t reduced p.o. intake Pt received 1L IVF in ED Will be placed on maintenance IVF Follow BMP Prostate cancer CT scan of abdomen and pelvis on 12/26/2022 found a marked heterogeneous enlargement of the prostate gland with asymmetric nodular thickening of the left seminal vesicle concerning for primary malignancy PSA elevated at 273.74 Should follow up outpatient with Urology for further treatment, patient has yet to establish clinician/care Generalized weakness Likely multifactorial: ANTONELLA, decreased p.o. intake, prostate cancer Treat as above Will get PT evaluation Lower leg edema Patient with 2+ pitting edema bilaterally Patient has noted increased leg swelling the past 3 months New onset CHF unlikely: BNP only mildly raised at 182, patient denies shortness of breath Will obtain Doppler ultrasound of lower legs bilaterally to r/o DVT UTI Patient diagnosed with UTI on 12/26/2022, discharged home on cefuroxime 500 mg p.o. b.i.d. x7 days Patient has recently been incontinent of urine, with increased urinary frequency, denies dysuria Continue cefuroxime x2 more days Full Code Attending:?Dr. Marshall DVT Prophylaxis: On Eliquis Pt will require a hospitalization of at least two nights for treatment of? with . Time Spent With Patient Time: Total time managing care of this patient today ____ minutes. Quality Stroke Does the patient have a stroke diagnosis?: No VTE Prior VTE?: No VTE Risk Level:: Medical - moderate - high VTE Device Contraindication: Treatment Not Indicated VTE Drug Contraindication: N/A - Med Ordered
[2022-12-31 17:55] VITALS: BP 170/101; PULSE 112; RESP 20; O2SAT 91
--- NOTE | 2022-12-31 19:14 | MHC.CM.PN ---
Addendum entered by Courtney Barnes 12/31/22 19:33: 17 referrals placed that contract with patient's insurance. [facility] is first choice. Original Note: IMM 12/31. Reviewed with patient. Pt acknowledges understand, but declines to sign any paperwork. Declines HCP. Lives alone. Uses cane, walker and rollator. Drives. No services. Unvaccinated. PCP is [facility]. Tells CM he did not fall today, but did lie down on floor to stretch his back and could not get up. Called his neighbor and brother. Had an argument with both of them, as he just wanted to be picked up and left at home and they called 911. Pt seems A&Ox4, but is very angry with his brother and feels his brother has no time for him. Pt states he is safe at home and does not need any help. Pt tells CM he may need to move from his home that he rents, as they want to increase the rents. Pt is unsure where he will live. Pt is agreeable to PT evaluation, but is adamant that he did not fall today. Does admit that he could not get up, but feels he would have been fine if his brother had just assisted him to his chair. Pt is agreeable to STR if needed. Would like facility in [place]. Referrals made. PT pending. CM will follow for discharge planning.
--- NOTE | 2022-12-31 19:37 | PC.NURSE ---
report given to floor at 1935
[2022-12-31 20:00] VITALS: BP 134/62; PULSE 102; RESP 18; TEMP 37; O2SAT 98
[2022-12-31 20:01] VITALS: BMI 24.2
[2022-12-31] MEDS: Acetaminophen 325 MG TABLET 650 MG PO (20:45)
[2022-12-31] MEDS: oxyCODONE HCl Immed Release 5 MG TABLET PO (20:46)
[2022-12-31] MEDS: Apixaban 2.5 MG TABLET PO (20:46)
[2022-12-31] MEDS: 0.9 % Sodium Chloride Flush 3 ML SYRINGE IVFLUSH (20:46)
[2022-12-31] MEDS: Pravastatin Sodium 40 MG TABLET PO (20:46)
[2022-12-31 21:06] LABS: B Type Natriuretic Peptide 182 pg/mL (<100)
[2022-12-31] MEDS: Lactated Ringers 1,000 ML 100 ML IVCONT (21:52)
[2022-12-31 23:40] VITALS: BP 141/91; PULSE 97; RESP 18; TEMP 37; O2SAT 95
[2023-01-01 03:03] VITALS: BP 158/89; PULSE 108; RESP 18; TEMP 37; O2SAT 94
[2023-01-01] MEDS: Lactated Ringers 1,000 ML 100 ML IVCONT ×2 (06:50→20:25)
[2023-01-01 07:12] LABS: Hematocrit 36.2 % (42.0-52.0); Hemoglobin 12.6 g/dl (14.0-18.0); Mean Corpuscular HGB Conc 34.8 g/dl (31.0-36.0); Mean Corpuscular Hemoglobin 30.4 pg (27.0-33.0); Mean Corpuscular Volume 87.4 fL (80.0-98.0); Mean Platelet Volume 9.8 fL (9.4-12.4); Platelet Count 350 X10*3/uL (160-400); Red Blood Count 4.14 X10*6/uL (4.60-5.80); White Blood Count 11.5 X10*3/uL (4.8-10.8)
[2023-01-01 07:29] VITALS: BP 157/80; PULSE 115; RESP 20; TEMP 36.7; O2SAT 96
--- NOTE | 2023-01-01 09:35 | PC.NURSE ---
patient refused all medication and assessments despite education on the importance of taking. MD notified. Will continue to monitor patient
--- NOTE | 2023-01-01 09:48 | P.PNIM_ITS ---
Subjective Subjective Date of Service: 01/01/23 Interval History: weakness Physical Exam Vital Signs: Vital Signs: Last Vital Signs Temp 98.0 F 01/01/23 07:29 Pulse 115 H 01/01/23 07:29 Resp 20 01/01/23 07:29 BP 157/80 H 01/01/23 07:29 Pulse Ox 96 01/01/23 07:29 O2 Del Method Room Air 01/01/23 07:29 BMI result Body Mass Index 24.2 General: AO X 3, no acute distress Resp: CTA bilateral, no accessory muscles used CVS: S1,S2,RRR GI: soft, non tender, non distended Neuro: motor grossly intact, alert Psych: appropriate affect, appropriate insight Objective Data Active Medications Acetaminophen (Acetaminophen 325 Mg Tablet) 650 mg PO Q6H PRN PRN Reason: Pain, Mild (Pain Scale 1-3) Last Admin: 12/31/22 20:45 Dose: 650 mg Documented By: BENIGNO Amlodipine Besylate (Amlodipine Besylate 5 Mg Tablet) 5 mg PO DAILY [facility]; Protocol Apixaban (Apixaban 2.5 Mg Tablet) 2.5 mg PO BID [facility] Last Admin: 12/31/22 20:46 Dose: 2.5 mg Documented By: BENIGNO Cefuroxime Axetil (Cefuroxime Axetil 500 Mg Tablet) 500 mg PO BID [facility] Last Admin: 12/31/22 20:46 Dose: 500 mg Documented By: BENIGNO Clopidogrel Bisulfate (Clopidogrel Bisulfate 75 Mg Tablet) 75 mg PO DAILY [facility] Docusate Sodium (Docusate Sodium 100 Mg Capsule) 100 mg PO DAILY PRN PRN Reason: Constipation Lactated Ringer's (Lr) 1,000 mls @ 100 mls/hr IVCONT .Q10H [facility] Last Admin: 01/01/23 06:50 Dose: 100 mls/hr Documented By: JEANNE Ondansetron HCl (Ondansetron Hcl 4 Mg/2 Ml Vial) 4 mg IVPUSH Q8H PRN PRN Reason: Nausea and Vomiting Oxycodone HCl (Oxycodone Hcl Immed Release 5 Mg Tablet) 5 mg PO Q8H PRN PRN Reason: Pain, Moderate(Pain Scale 4-6) Last Admin: 12/31/22 20:46 Dose: 5 mg Documented By: BENIGNO Pharmacy Consult (Consult Rx Perform Med Rec) 1 each MISCELLANE ONCE PRN PRN Reason: Consult order Pravastatin Sodium (Pravastatin Sodium 40 Mg Tablet) 40 mg PO BEDTIME [facility] Last Admin: 12/31/22 20:46 Dose: 40 mg Documented By: BENIGNO Sodium Chloride (0.9 % Sodium Chloride Flush 3 Ml Syringe) 3 ml IVFLUSH QSHIFT [facility] Last Admin: 12/31/22 20:46 Dose: 3 ml Documented By: BENIGNO Tamsulosin HCl (Tamsulosin Hcl 0.4 Mg Capsule) 0.4 mg PO DAILY [facility] Labs 01/01/23 06:50 12/31/22 09:56 Labs: Laboratory Results - last 24 hr 12/31/22 12/31/22 12/31/22 09:55 09:55 09:56 MCV MCH MCHC RDW Plt Count MPV Immature Gran % (Auto) Neut % (Auto) Lymph % (Auto) N[place]olls % (Auto) Eos % (Auto) Baso % (Auto) Lymph # (Auto) [place] # (Auto) Eos # (Auto) Baso # (Auto) Abs Immat Gran (auto) Absolute Neuts (auto) Absolute Nucleated RBC Nucleated RBC % (auto) PT 16.6 H INR 1.4 H Anion Gap 16 Estim Creat Clear Calc 35.5 Estimated GFR 47 Random Glucose 192 H Lactic Acid 1.9 Calcium 9.5 Total Bilirubin 0.7 AST 21 ALT 27 Alkaline Phosphatase 98 Total Creatine Kinase 137 B-Natriuretic Peptide Total Protein 6.9 Albumin 3.9 Prostate Specific Ag 273.74 H 12/31/22 12/31/22 01/01/23 09:56 19:31 06:50 MCV 88.8 87.4 MCH 30.3 30.4 MCHC 34.1 34.8 RDW 13.1 13.0 Plt Count 356 350 MPV 9.7 9.8 Immature Gran % (Auto) 0.4 Neut % (Auto) 85.1 H Lymph % (Auto) 4.5 L [place]olls % (Auto) 8.9 Eos % (Auto) 0.8 Baso % (Auto) 0.3 Lymph # (Auto) 0.5 L [place] # (Auto) 1.1 Eos # (Auto) 0.1 Baso # (Auto) 0.0 Abs Immat Gran (auto) 0.05 H Absolute Neuts (auto) 10.2 H Absolute Nucleated RBC 0.000 0.000 Nucleated RBC % (auto) 0.0 0.0 PT INR Anion Gap Estim Creat Clear Calc Estimated GFR Random Glucose Lactic Acid Calcium Total Bilirubin AST ALT Alkaline Phosphatase Total Creatine Kinase B-Natriuretic Peptide 182 H Total Protein Albumin Prostate Specific Ag Microbiology Microbiology Results: Microbiology 12/31/22 Unknown Urine Culture - Final Urine clean catch - Urine gonzalez top No growth. Assessment and Plan (1) MICKEY (acute kidney injury): Status: Acute Plan 82M PMH paroxysmal afib on eliquis, DM, prostate ca, presented with weakness, mickey paroxysmal afib eliquis, start metoprolol mickey ivf, monitor dm insulin uti ceftin weakness pt dvt prophylaxis - eliquis full cdoe reason for continued hospitalization:unsteady, awaiting safe dispo Time Spent With Patient Time: Total time managing care of this patient today ____ minutes. Quality Stroke Does the patient have a stroke diagnosis?: No VTE Prior VTE?: No VTE Risk Level:: Medical - moderate - high VTE Device Contraindication: Treatment Not Indicated VTE Drug Contraindication: N/A - Med Ordered
[2023-01-01 10:32] LABS: Anion Gap 16 (12-20); Blood Urea Nitrogen 34 mg/dL (9-16); Calcium 9.3 mg/dL (8.4-10.2); Carbon Dioxide 20 mmol/L (22-29); Chloride 109 mmol/L (96-108); Creatinine Clr Calc Pharmacy 38.5; Estimated Glomerular Filt Rate 52; Glucose Random 163 mg/dL (60-115); Sodium 141 mmol/L (135-145)
[2023-01-01 16:00] VITALS: BP 166/84; PULSE 108; RESP 15; TEMP 37.1; O2SAT 96
[2023-01-01 16:31] LABS: Glucose, Whole Blood 189 mg/dL (60-115)
[2023-01-01 20:00] VITALS: BP 178/88; PULSE 109; RESP 15; TEMP 36.6; O2SAT 97
[2023-01-01 20:20] LABS: Glucose, Whole Blood 264 mg/dL (60-115)
[2023-01-01] MEDS: Insulin Lispro 100 UNIT/ML 3 ML VIAL SUBCUT (20:24)
[2023-01-01] MEDS: Pravastatin Sodium 40 MG TABLET PO (20:25)
[2023-01-01] MEDS: Metoprolol Tartrate 25 MG TABLET PO (20:25)
[2023-01-01] MEDS: Apixaban 5 MG TABLET PO (20:37)
[2023-01-01] MEDS: oxyCODONE HCl Immed Release 5 MG TABLET PO (20:38)
[2023-01-02] VITALS (8 sets, daily range): BP systolic 132–190; BP diastolic 63–92; PULSE 90–109; RESP 14–20; TEMP 36.2–37.1; O2SAT 95–96
[2023-01-02] MEDS: Lactated Ringers 1,000 ML 100 ML IVCONT ×2 (05:41→16:00)
[2023-01-02 06:34] LABS: Anion Gap 17 (12-20); Blood Urea Nitrogen 34 mg/dL (9-16); Calcium 9.1 mg/dL (8.4-10.2); Carbon Dioxide 20 mmol/L (22-29); Chloride 109 mmol/L (96-108); Creatinine Clr Calc Pharmacy 29.4; Estimated Glomerular Filt Rate 38; Glucose Fasting 137 mg/dL (60-99); Potassium 4.1 mmol/L (3.3-5.1); Sodium 142 mmol/L (135-145)
[2023-01-02 06:40] LABS: Hematocrit 35.6 % (42.0-52.0); Hemoglobin 12.4 g/dl (14.0-18.0); Mean Corpuscular HGB Conc 34.8 g/dl (31.0-36.0); Mean Corpuscular Hemoglobin 30.9 pg (27.0-33.0); Mean Corpuscular Volume 88.8 fL (80.0-98.0); Mean Platelet Volume 10.1 fL (9.4-12.4); Platelet Count 328 X10*3/uL (160-400); Red Blood Count 4.01 X10*6/uL (4.60-5.80); White Blood Count 12.7 X10*3/uL (4.8-10.8)
[2023-01-02 07:09] LABS: Glucose, Whole Blood 151 mg/dL (60-115)
[2023-01-02] MEDS: Metoprolol Tartrate 25 MG TABLET PO ×2 (07:12→21:13)
[2023-01-02] MEDS: Tamsulosin HCL 0.4 MG CAPSULE PO (07:12)
[2023-01-02] MEDS: Insulin Lispro 100 UNIT/ML 3 ML VIAL SUBCUT ×3 (07:12→16:46)
[2023-01-02] MEDS: amLODIPine Besylate 5 MG TABLET PO (07:12)
[2023-01-02] MEDS: Apixaban 5 MG TABLET PO ×2 (07:12→21:13)
--- NOTE | 2023-01-02 08:22 | P.PNIM_ITS ---
Subjective Subjective Date of Service: 01/02/23 Interval History: agitated Physical Exam Vital Signs: Vital Signs: Last Vital Signs Temp 98.1 F 01/02/23 06:56 Pulse 101 H 01/02/23 06:56 Resp 18 01/02/23 06:56 BP 178/77 H 01/02/23 06:56 Pulse Ox 95 01/02/23 06:56 O2 Del Method Room Air 01/02/23 06:56 BMI result Body Mass Index 24.2 agitated, oriented to self and place, but poor insight, poor historian Objective Data Active Medications Acetaminophen (Acetaminophen 325 Mg Tablet) 650 mg PO Q6H PRN PRN Reason: Pain, Mild (Pain Scale 1-3) Last Admin: 12/31/22 20:45 Dose: 650 mg Documented By: BENIGNO Amlodipine Besylate (Amlodipine Besylate 5 Mg Tablet) 5 mg PO DAILY [facility]; Yamil col Last Admin: 01/02/23 07:12 Dose: 5 mg Documented By: ZAKIA Apixaban (Apixaban 5 Mg Tablet) 5 mg PO BID [facility] Last Admin: 01/02/23 07:12 Dose: 5 mg Documented By: ZAKIA Cefuroxime Axetil (Cefuroxime Axetil 500 Mg Tablet) 500 mg PO BID [facility] Last Admin: 01/02/23 07:12 Dose: 500 mg Documented By: ZAKIA Docusate Sodium (Docusate Sodium 100 Mg Capsule) 100 mg PO DAILY PRN PRN Reason: Constipation Glucose (Glucose Gel 15 Gm Gel..Gram.) 15 gm PO Q15M PRN; Protocol PRN Reason: per Hypoglycemia Standing Ord. Lactated Ringer's (Lr) 1,000 mls @ 100 mls/hr IVCONT .Q10H [facility] Last Admin: 01/02/23 05:41 Dose: 100 mls/hr Documented By: MENM Dextrose (D10) 250 mls @ 750 mls/hr IV Q15M PRN; Protocol PRN Reason: per Hypoglycemia Standing Ord. Insulin Human Lispro (Insulin Lispro 100 Unit/Ml 3 Ml Vial) 0 unit SUBCUT QIDACHS COUNT [facility]CLUD[facility]; Protocol Last Admin: 01/02/23 07:12 Dose: 2 unit Documented By: ZAKIA Metoprolol Tartrate (Metoprolol Tartrate 25 Mg Tablet) 25 mg PO BID [facility]; Protocol Last Admin: 01/02/23 07:12 Dose: 25 mg Documented By: ZAKIA Olanzapine (Olanzapine 10 Mg Vial) 5 mg IM DAILY PRN PRN Reason: agitation Ondansetron HCl (Ondansetron Hcl 4 Mg/2 Ml Vial) 4 mg IVPUSH Q8H PRN PRN Reason: Nausea and Vomiting Oxycodone HCl (Oxycodone Hcl Immed Release 5 Mg Tablet) 5 mg PO Q8H PRN PRN Reason: Pain, Moderate(Pain Scale 4-6) Last Admin: 01/01/23 20:38 Dose: 5 mg Documented By: SVEN Pharmacy Consult (Consult Rx Perform Med Rec) 1 each MISCELLANE ONCE PRN PRN Reason: Consult order Pravastatin Sodium (Pravastatin Sodium 40 Mg Tablet) 40 mg PO BEDTIME [facility] Last Admin: 01/01/23 20:25 Dose: 40 mg Documented By: SVEN Sodium Chloride (0.9 % Sodium Chloride Flush 3 Ml Syringe) 3 ml IVFLUSH QSHIFT [facility] Last Admin: 01/02/23 07:26 Dose: Not Given Documented By: ZAKIA Non-Admin Reason: IV Running Tamsulosin HCl (Tamsulosin Hcl 0.4 Mg Capsule) 0.4 mg PO DAILY [facility] Last Admin: 01/02/23 07:12 Dose: 0.4 mg Documented By: ZAKIA Labs 01/02/23 06:00 01/02/23 06:00 Labs: Laboratory Results - last 24 hr 01/01/23 01/01/23 01/01/23 06:50 16:21 20:12 MCV MCH MCHC RDW Plt Count MPV Absolute Nucleated RBC Nucleated RBC % (auto) Anion Gap 16 Estim Creat Clear Calc 38.5 Estimated GFR 52 POC Glucose 189 H 264 H Random Glucose 163 H Fasting Glucose Calcium 9.3 01/02/23 01/02/23 01/02/23 06:00 06:00 07:02 MCV 88.8 MCH 30.9 MCHC 34.8 RDW 13.0 Plt Count 328 MPV 10.1 Absolute Nucleated RBC 0.000 Nucleated RBC % (auto) 0.0 Anion Gap 17 Estim Creat Clear Calc 29.4 Estimated GFR 38 POC Glucose 151 H Random Glucose Fasting Glucose 137 H Calcium 9.1 Microbiology Microbiology Results: Microbiology 12/31/22 09:56 Blood Culture - Preliminary Blood - Venous No growth after 24 hours. 12/31/22 09:56 Blood Culture - Preliminary Blood - Venous No growth after 24 hours. 12/31/22 Unknown Urine Culture - Final Urine clean catch - Urine gonzalez top No growth. Assessment and Plan (1) ANTONELLA (acute kidney injury): Status: Acute Plan 82M PMH paroxysmal afib on eliquis, DM, prostate ca, presented with weakness, antonella paroxysmal afib with rvr eliquis, started metoprolol, increased diltiazem to 240 daily antonella ivf, monitor, check renal us rule out obstruction dm insulin uti ceftin weakness pt prostate ca outpatient follow up dvt prophylaxis - eliquis full cdoe reason for continued hospitalization:unsteady, awaiting safe dispo, antonella - ivf Time Spent With Patient Time: Total time managing care of this patient today ____ minutes. Quality Stroke Does the patient have a stroke diagnosis?: No VTE Prior VTE?: No VTE Risk Level:: Medical - moderate - high VTE Device Contraindication: Treatment Not Indicated VTE Drug Contraindication: N/A - Med Ordered
[2023-01-02 11:35] LABS: Glucose, Whole Blood 188 mg/dL (60-115)
[2023-01-02] MEDS: 0.9 % Sodium Chloride Flush 3 ML SYRINGE IVFLUSH ×2 (11:48→21:16)
[2023-01-02 16:16] LABS: Glucose, Whole Blood 296 mg/dL (60-115)
[2023-01-02 20:31] LABS: Glucose, Whole Blood 130 mg/dL (60-115)
[2023-01-02] MEDS: Pravastatin Sodium 40 MG TABLET PO (21:13)
--- NOTE | 2023-01-03 08:33 | P.PNIM_ITS ---
Subjective Subjective Date of Service: 01/03/23 Interval History: not participatory Physical Exam Vital Signs: Vital Signs: Last Vital Signs Temp 97.9 F 01/02/23 23:42 Pulse 98 01/02/23 23:42 Resp 18 01/02/23 23:42 BP 170/82 H 01/02/23 23:42 Pulse Ox 96 01/02/23 23:42 O2 Del Method Room Air 01/02/23 23:42 BMI result Body Mass Index 24.2 refused Objective Data Active Medications Acetaminophen (Acetaminophen 325 Mg Tablet) 650 mg PO Q6H PRN PRN Reason: Pain, Mild (Pain Scale 1-3) Last Admin: 12/31/22 20:45 Dose: 650 mg Documented By: BENIGNO Amlodipine Besylate (Amlodipine Besylate 5 Mg Tablet) 5 mg PO DAILY [facility]; Protocol Last Admin: 01/02/23 07:12 Dose: 5 mg Documented By: FOSTEKLiz Apixaban (Apixaban 5 Mg Tablet) 5 mg PO BID [facility] Last Admin: 01/02/23 21:13 Dose: 5 mg Documented By: ARIADNE Cefuroxime Axetil (Cefuroxime Axetil 500 Mg Tablet) 500 mg PO BID [facility] Last Admin: 01/02/23 21:12 Dose: 500 mg Documented By: ARIADNE Docusate Sodium (Docusate Sodium 100 Mg Capsule) 100 mg PO DAILY PRN PRN Reason: Constipation Glucose (Glucose Gel 15 Gm Gel..Gram.) 15 gm PO Q15M PRN; Protocol PRN Reason: per Hypoglycemia Standing Ord. Dextrose (D10) 250 mls @ 750 mls/hr IV Q15M PRN; Protocol PRN Reason: per Hypoglycemia Standing Ord. Insulin Human Lispro (Insulin Lispro 100 Unit/Ml 3 Ml Vial) 0 unit SUBCUT QIDACHS [facility]; Protocol Last Admin: 01/02/23 21:13 Dose: Not Given Documented By: ARIADNE Non-Admin Reason: No Insulin Coverage Comments: POC 130 Metoprolol Tartrate (Metoprolol Tartrate 25 Mg Tablet) 25 mg PO BID [facility]; Protocol Last Admin: 01/02/23 21:13 Dose: 25 mg Documented By: ARIADNE Olanzapine (Olanzapine 10 Mg Vial) 5 mg IM DAILY PRN PRN Reason: agitation Ondansetron HCl (Ondansetron Hcl 4 Mg/2 Ml Vial) 4 mg IVPUSH Q8H PRN PRN Reason: Nausea and Vomiting Oxycodone HCl (Oxycodone Hcl Immed Release 5 Mg Tablet) 5 mg PO Q8H PRN PRN Reason: Pain, Moderate(Pain Scale 4-6) Last Admin: 01/01/23 20:38 Dose: 5 mg Documented By: ALIE Pharmacy Consult (Consult Rx Perform Med Rec) 1 each MISCELLANE ONCE PRN PRN Reason: Consult order Pravastatin Sodium (Pravastatin Sodium 40 Mg Tablet) 40 mg PO BEDTIME [facility] Last Admin: 01/02/23 21:13 Dose: 40 mg Documented By: ARIADNE Sodium Chloride (0.9 % Sodium Chloride Flush 3 Ml Syringe) 3 ml IVFLUSH QSHIFT [facility] Last Admin: 01/02/23 21:16 Dose: 3 ml Documented By: ARIADNE Tamsulosin HCl (Tamsulosin Hcl 0.4 Mg Capsule) 0.4 mg PO DAILY [facility] Last Admin: 01/02/23 07:12 Dose: 0.4 mg Documented By: FOSTEKR Labs 01/02/23 06:00 01/02/23 06:00 Labs: Laboratory Results - last 24 hr 01/02/23 01/02/23 01/02/23 11:25 15:59 20:11 POC Glucose 188 H 296 H 130 H Microbiology Microbiology Results: Microbiology 12/31/22 09:56 Blood Culture - Preliminary Blood - Venous No growth after 48 hours. 12/31/22 09:56 Blood Culture - Preliminary Blood - Venous No growth after 48 hours. Assessment and Plan (1) ANTONELLA (acute kidney injury): Status: Acute Plan 82M PMH paroxysmal afib on eliquis, DM, prostate ca, presented with weakness, antonella paroxysmal afib with rvr eliquis, started metoprolol, increased diltiazem to 240 daily - though patient refusing meds antonella renal us with mild bilateral hydro eval dm insulin uti ceftin weakness pt prostate ca gu eval dvt prophylaxis - eliquis full code reason for continued hospitalization:unsteady, awaiting safe dispo, antonella Time Spent With Patient Time: Total time managing care of this patient today ____ minutes. Quality Stroke Does the patient have a stroke diagnosis?: No VTE Prior VTE?: No VTE Risk Level:: Medical - moderate - high VTE Device Contraindication: Treatment Not Indicated VTE Drug Contraindication: N/A - Med Ordered
[2023-01-03] MEDS: Tamsulosin HCL 0.4 MG CAPSULE PO (10:20)
[2023-01-03] MEDS: amLODIPine Besylate 5 MG TABLET PO (10:21)
[2023-01-03] MEDS: Metoprolol Tartrate 25 MG TABLET PO ×2 (10:21→21:06)
[2023-01-03] MEDS: Apixaban 5 MG TABLET PO ×2 (10:21→21:06)
[2023-01-03] MEDS: 0.9 % Sodium Chloride Flush 3 ML SYRINGE IVFLUSH ×3 (10:22→23:56)
[2023-01-03 10:28] VITALS: BP 148/74; PULSE 94; RESP 20; TEMP 36.8; O2SAT 97
--- NOTE | 2023-01-03 10:43 | MHC.CM.PN ---
Addendum entered by Brittaney Baltazar 01/03/23 15:36: [id number] Jessica #[phone]. Addendum entered by Brittaney Baltazar 01/03/23 13:01: This CM received a message to return a phone call from pts [id number] Jessica. This CM met with pt and he gave verbal permission for this CM to speak with Jessica. This CM called Jessica who had concerns regarding the pt not being able to care for himself and concerns with his paranoia and refusal to eat food and take medications. Jessica states the pt frequently believes he is being poisoned and will then refuse the food/medicine being offered. [id number] updated on the plan for the pt. Original Note: EMR reviewed and per MD rounds, pt not medically cleared for D/C at this time, anticipating the need for psych consult. CM will continue to follow.
[2023-01-03 10:48] LABS: Glucose, Whole Blood 175 mg/dL (60-115)
[2023-01-03 11:30] LABS: Glucose, Whole Blood 158 mg/dL (60-115)
[2023-01-03 12:00] VITALS: RESP 20
[2023-01-03] MEDS: Insulin Lispro 100 UNIT/ML 3 ML VIAL SUBCUT (13:10)
[2023-01-03] MEDS: oxyCODONE HCl Immed Release 5 MG TABLET PO (13:10)
[2023-01-03 13:47] VITALS: BMI 24.2
--- NOTE | 2023-01-03 13:50 | MHC.CLN ---
RE: CONSULT PT WITH INCREASED NUTRITION RISK R/T PRESSURE INJURY DIET RX: 1800DM-RECOMMEND 2000DM DIET R/T INCREASED NEEDS R/T WOUNDS RECOMMEND ADDING ENSURE MAX BID TO PROMOTE WOUND HEALING SUPP TO PROVIDE 300KCALS, 60G PROTEIN WITH 100% ACCEPTANCE MONITOR PO INTAKE SEE ALSO FULL CLINICAL NUTRITION ASSESSMENT
[2023-01-03 15:23] VITALS: BP 128/74; PULSE 96; RESP 18; TEMP 37; O2SAT 96
[2023-01-03 16:36] LABS: Glucose, Whole Blood 158 mg/dL (60-115)
--- NOTE | 2023-01-03 16:51 | PC.NURSE ---
Pt refusing to get washed up and repositioned during shift; pt refusing vitals, POC, medication, physical therapy and meals. Pt educated multiple times and redirected throughout the shift; not affective. Pt understanding the risks, pt stating its my choice . Provider aware. Safety and fall precautions maintained. Call damon within reach. Camera in room.
[2023-01-03 19:27] VITALS: BP 151/82; PULSE 95; RESP 18; TEMP 36.8; O2SAT 96
[2023-01-03 20:14] LABS: Glucose, Whole Blood 156 mg/dL (60-115)
[2023-01-03] MEDS: Pravastatin Sodium 40 MG TABLET PO (21:06)
--- NOTE | 2023-01-03 22:25 | P.CNPS_ITS ---
History of Present Illness Date of Service: 01/03/23 Chief Complaint: ANTONELLA, genearlized weakness Reason for Consult: ? acute psychosis ? capacity (for HCP, for D/C, for self-care) HPI Narrative: pt visited in his room at [facility]. he was awake and alert, watching TV and appropriately interacting with nursing staff for an IV flush. he was responsive to his name and reasonably pleasant and willing to engage with health technical writer. he was oriented to city, facility, and floor. he was oriented to date ( or ), month, and year. on being asked what the season was, he described December as an . he displayed a certain rigidity of thinking, repeatedly returning to favored subject matter and having a difficult time being redirected, often failing to respond to prompts in any way other than returning to his stereotyped subjects. such themes were: that it has been insisted upon by his imperious attending physician that he fell and hurt his head, and no amount of explaining on his part can dissuade the doctor and medical team from that position; that his doctor just wants to prescribe him new medications he doesn't know the indication for and push him out the door with a bunch of pills. in addition, he displayed paranoia regarding this health technical writer's behavior in his room (accusing MD of harboring somehow illegitimate interest in a medical chief technician on a table in his room and having surreptitiously examined it while returning a chair to the table's side; this health technical writer merely cursorily glanced at the object on the table), as well as regarding the motivations of his treatment team. most strikingly, attempted to establish with pt that he has three substantial medical problems at the moment: UTI, afib, likely prostate CA. these three problems with introduced to him numerous times, and some at least several minutes were spent discussing each of them. yet, after a few minutes of unrelated conversation, Mr. Hernandez could not recall the three medical problems. he was unable to retain very basic information for even 5 minutes, let alone display the cognitive flexibility necessary for informed decision making. Past Psychiatric History: hosps: denies SA: denies SIB: denies outpt Tx: denies PMFSH Medical History Atrial fibrillation Diabetes mellitus Prostate cancer Family History: denies Social History: 9th grade education, then trade school in [employer] (at [employer] ). 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 Substance History: tobacco: 1 ppd alcohol: denies cannabis: denies opioids: by Rx for the past 2 years or so. denies misuse or abuse or early refills. denies the use of other substances of abuse. denies any h/o substance abuse treatment, detoxes, rehabs. Diagnostics Vital Signs (24Hr): Vital Signs - 24 hr 01/02/23 23:42 01/03/23 10:28 01/03/23 12:00 Temperature 97.9 F 98.2 F Pulse Rate 98 94 Respiratory Rate 18 20 20 Blood Pressure 170/82 H 148/74 H Pulse Oximetry 96 97 Oxygen Delivery Method Room Air Room Air 01/03/23 15:23 01/03/23 19:27 Temperature 98.6 F 98.2 F Pulse Rate 96 95 Respiratory Rate 18 18 Blood Pressure 128/74 151/82 H Pulse Oximetry 96 96 Oxygen Delivery Method Room Air Room Air BMI result Body Mass Index 24.2 Labs 01/02/23 06:00 01/02/23 06:00 Labs: Laboratory Results - last 48 hr 01/02/23 01/02/23 01/02/23 06:00 06:00 07:02 WBC 12.7 H RBC 4.01 L Hgb 12.4 L Hct 35.6 L MCV 88.8 MCH 30.9 MCHC 34.8 RDW 13.0 Plt Count 328 MPV 10.1 Absolute Nucleated RBC 0.000 Nucleated RBC % (auto) 0.0 Sodium 142 Potassium 4.1 Chloride 109 H Carbon Dioxide 20 L Anion Gap 17 BUN 34 H Creatinine 1.74 H Estim Creat Clear Calc 29.4 Estimated GFR 38 POC Glucose 151 H Fasting Glucose 137 H Calcium 9.1 01/02/23 01/02/23 01/02/23 11:25 15:59 20:11 WBC RBC Hgb Hct MCV MCH MCHC RDW Plt Count MPV Absolute Nucleated RBC Nucleated RBC % (auto) Sodium Potassium Chloride Carbon Dioxide Anion Gap BUN Creatinine Estim Creat Clear Calc Estimated GFR POC Glucose 188 H 296 H 130 H Fasting Glucose Calcium 06/12/23 06/12/23 06/12/23 10:31 11:26 16:14 WBC RBC Hgb Hct MCV MCH MCHC RDW Plt Count MPV Absolute Nucleated RBC Nucleated RBC % (auto) Sodium Potassium Chloride Carbon Dioxide Anion Gap BUN Creatinine Estim Creat Clear Calc Estimated GFR POC Glucose 175 H 158 H 158 H Fasting Glucose Calcium 01/03/23 20:04 WBC RBC Hgb Hct MCV MCH MCHC RDW Plt Count MPV Absolute Nucleated RBC Nucleated RBC % (auto) Sodium Potassium Chloride Carbon Dioxide Anion Gap BUN Creatinine Estim Creat Clear Calc Estimated GFR POC Glucose 156 H Fasting Glucose Calcium Imaging Radiology Impressions: ITS Impressions Chest X-Ray 12/31/22 09:25 IMPRESSION: Unremarkable examination. Head CT 12/31/22 09:26 IMPRESSION: 1. No acute intracranial pathology. 2. 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 3. 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 Renal Ultrasound 01/02/23 09:08 IMPRESSION: Mild bilateral hydronephrosis. This appears new or increased compared to previous CT scan. Mental Status Exam Mental Status Exam Narrative: seen lying in bed wearing [facility], adequately groomed for the circumstance. cooperative with interview. no PMA/PMR. speech incr amount, nml rate, nml latency, nml loudness, nml prosody. thoughts tangential, paranoid at times. affect constricted, mildly hyper-intense, min-labile. mood all right. denies SI/SIBI/HI/AVH. Medications Medications Current Medications Acetaminophen (Acetaminophen 325 Mg Tablet) 650 mg PO Q6H PRN PRN Reason: Pain, Mild (Pain Scale 1-3) Last Admin: 12/31/22 20:45 Dose: 650 mg Amlodipine Besylate (Amlodipine Besylate 5 Mg Tablet) 5 mg PO DAILY [facility]; Protocol Last Admin: 01/03/23 10:21 Dose: 5 mg Apixaban (Apixaban 5 Mg Tablet) 5 mg PO BID [facility] Last Admin: 01/03/23 21:06 Dose: 5 mg Cefuroxime Axetil (Cefuroxime Axetil 500 Mg Tablet) 500 mg PO BID [facility] Last Admin: 01/03/23 21:05 Dose: 500 mg Docusate Sodium (Docusate Sodium 100 Mg Capsule) 100 mg PO DAILY PRN PRN Reason: Constipation Glucose (Glucose Gel 15 Gm Gel..Gram.) 15 gm PO Q15M PRN; Protocol PRN Reason: per Hypoglycemia Standing Ord. Dextrose (D10) 250 mls @ 750 mls/hr IV Q15M PRN; Protocol PRN Reason: per Hypoglycemia Standing Ord. Insulin Human Lispro (Insulin Lispro 100 Unit/Ml 3 Ml Vial) 0 unit SUBCUT QIDACHS [facility]; Protocol Last Admin: 01/03/23 21:04 Dose: Not Given Metoprolol Tartrate (Metoprolol Tartrate 25 Mg Tablet) 25 mg PO BID [facility]; Protoc ol Last Admin: 01/03/23 21:06 Dose: 25 mg Olanzapine (Olanzapine 10 Mg Vial) 5 mg IM DAILY PRN PRN Reason: agitation Ondansetron HCl (Ondansetron Hcl 4 Mg/2 Ml Vial) 4 mg IVPUSH Q8H PRN PRN Reason: Nausea and Vomiting Oxycodone HCl (Oxycodone Hcl Immed Release 5 Mg Tablet) 5 mg PO Q8H PRN PRN Reason: Pain, Moderate(Pain Scale 4-6) Last Admin: 01/03/23 13:10 Dose: 5 mg Pharmacy Consult (Consult Rx Perform Med Rec) 1 each MISCELLANE ONCE PRN PRN Reason: Consult order Pravastatin Sodium (Pravastatin Sodium 40 Mg Tablet) 40 mg PO BEDTIME [facility] Last Admin: 01/03/23 21:06 Dose: 40 mg Sodium Chloride (0.9 % Sodium Chloride Flush 3 Ml Syringe) 3 ml IVFLUSH QSHIFT [facility] Last Admin: 01/03/23 17:00 Dose: 3 ml Tamsulosin HCl (Tamsulosin Hcl 0.4 Mg Capsule) 0.4 mg PO DAILY [facility] Last Admin: 01/03/23 10:20 Dose: 0.4 mg Allergies Allergies Allergy/AdvReac Type Severity Reaction Status Date / Time No Known Allergies Allergy Mild NOT Verified 12/26/22 21:17 [No Known Allergies*] APPLICABLE Assessment & Plan Assessment & Plan (1) Cognitive disorder: Status: Acute Code(s): F09 - Unspecified mental disorder due to known physiological condition Plan delirium vs dementia this presentation is more consistent with dementia than a primary psychotic disorder. in addition, pt denies any psychiatric history. therefore, a diagnosis of delirium or dementia with behavioral disturbance is most likely. if this is a substantial change from his baseline mental status, he is likely delirious from medical illness. low-dose neuroleptics +/- benzodiazepines may be used to keep him in behavioral control until his medical comorbidities improv e and his delirium resolves. if this is not a substantial change from his baseline, his presentation is consistent with dementia/cognitive disorder. it should also be noted that delirium and dementia are certainly not mutually exclusive diagnoses, and that his presentation may be one of delirium superimposed on dementia. the fact of any of the above diagnoses' being accurate or not is irrelevant, in any case, in the face of Mr. Hernandez's present cognitive deficits. Mr. Hernandez lacks very basic ability to retain and rationally manipulate information. therefore, he lacks decision-making capacity for any major medical decisions including discharge from the hospital. if he has an alternate decision-maker, that person should now be called upon to assume responsibility for medical decisions (ie. HCP, if there is one, should be invoked). he will very likely require support in living outpatient; an occupational therapy evaluation should be conducted, including MoCA and ACLS, to assess his level of cognitive impairment and need for supportive services for independent living. he should be referred to see neurology outpatient for dementia evaluation. low- dose neuroleptics may be used for agitation, paranoia, or sundowning in the meantime. Total time managing care of this patient today __75__ minutes.
[2023-01-03 23:56] VITALS: BP 157/75; PULSE 89; RESP 18; TEMP 37.1; O2SAT 96
[2023-01-04 04:00] VITALS: BP 168/89; PULSE 86; RESP 18; TEMP 37.7; O2SAT 98
[2023-01-04 05:46] LABS: Hematocrit 35.3 % (42.0-52.0); Hemoglobin 12.2 g/dl (14.0-18.0); Mean Corpuscular HGB Conc 34.6 g/dl (31.0-36.0); Mean Corpuscular Hemoglobin 30.4 pg (27.0-33.0); Mean Platelet Volume 9.9 fL (9.4-12.4); Platelet Count 317 X10*3/uL (160-400); Red Blood Count 4.01 X10*6/uL (4.60-5.80); Red Cell Distribution Width 12.7 % (11.0-16.0); White Blood Count 13.1 X10*3/uL (4.8-10.8)
[2023-01-04 06:16] LABS: Anion Gap 18 (12-20); Blood Urea Nitrogen 39 mg/dL (9-16); Calcium 8.8 mg/dL (8.4-10.2); Carbon Dioxide 20 mmol/L (22-29); Chloride 106 mmol/L (96-108); Creatinine Clr Calc Pharmacy 25.6; Estimated Glomerular Filt Rate 32; Glucose Fasting 150 mg/dL (60-99); Potassium 4.8 mmol/L (3.3-5.1); Sodium 139 mmol/L (135-145)
[2023-01-04 07:18] VITALS: BP 140/74; PULSE 93; RESP 20; TEMP 37; O2SAT 94
[2023-01-04 07:25] LABS: Glucose, Whole Blood 158 mg/dL (60-115)
[2023-01-04] MEDS: Apixaban 5 MG TABLET PO ×2 (07:56→22:07)
[2023-01-04] MEDS: amLODIPine Besylate 5 MG TABLET PO (07:56)
[2023-01-04] MEDS: Metoprolol Tartrate 25 MG TABLET PO ×2 (07:56→22:07)
[2023-01-04] MEDS: Tamsulosin HCL 0.4 MG CAPSULE PO (07:56)
[2023-01-04] MEDS: Insulin Lispro 100 UNIT/ML 3 ML VIAL SUBCUT ×3 (07:56→22:06)
[2023-01-04] MEDS: 0.9 % Sodium Chloride Flush 3 ML SYRINGE IVFLUSH ×2 (07:57→22:08)
[2023-01-04] MEDS: oxyCODONE HCl Immed Release 5 MG TABLET PO (08:00)
--- NOTE | 2023-01-04 09:34 | HO.PM.IMPN ---
Subjective Subjective Date of Service: 01/04/23 Interval History: refusing to participate Physical Exam Vital Signs: Vital Signs: Last Vital Signs Temp 98.6 F 01/04/23 07:18 Pulse 93 01/04/23 07:18 Resp 20 01/04/23 07:18 BP 140/74 H 01/04/23 07:18 Pulse Ox 94 01/04/23 07:18 O2 Del Method Room Air 01/04/23 07:18 BMI result Body Mass Index 24.2 refused Objective Data Active Medications Acetaminophen (Acetaminophen 325 Mg Tablet) 650 mg PO Q6H PRN PRN Reason: Pain, Mild (Pain Scale 1-3) Last Admin: 12/31/22 20:45 Dose: 650 mg Documented By: BENIGNO Amlodipine Besylate (Amlodipine Besylate 5 Mg Tablet) 5 mg PO DAILY [facility]S [facility]CLUDE 234 BEDS AT THE [facility]; Protocol Last Admin: 01/04/23 07:56 Dose: 5 mg Documented By: GILLIAN Apixaban (Apixaban 5 Mg Tablet) 5 mg PO BID COUNTS INCLUDE 234 BEDS AT THE [facility] Last Admin: 01/04/23 07:56 Dose: 5 mg Documented By: GILLIAN Cefuroxime Axetil (Cefuroxime Axetil 500 Mg Tablet) 500 mg PO BID COUNTS INCLUDE 234 BEDS AT THE [facility] Last Admin: 01/04/23 07:56 Dose: 500 mg Documented By: GILLIAN Docusate Sodium (Docusate Sodium 100 Mg Capsule) 100 mg PO DAILY PRN PRN Reason: Constipation Glucose (Glucose Gel 15 Gm Gel..Gram.) 15 gm PO Q15M PRN; Protocol PRN Reason: per Hypoglycemia Standing Ord. Dextrose (D10) 250 mls @ 750 mls/hr IV Q15M PRN; Protocol PRN Reason: per Hypoglycemia Standing Ord. Insulin Human Lispro (Insulin Lispro 100 Unit/Ml 3 Ml Vial) 0 unit SUBCUT QIDACHS COUNTS INCLUDE 234 BEDS AT THE [facility]; Protocol Last Admin: 01/04/23 07:56 Dose: 2 unit Documented By: GILLIAN Metoprolol Tartrate (Metoprolol Tartrate 25 Mg Tablet) 25 mg PO BID COUNTS INCLUDE 234 BEDS AT THE [facility]; Protocol Last Admin: 01/04/23 07:56 Dose: 25 mg Documented By: GILLIAN Olanzapine (Olanzapine 10 Mg Vial) 5 mg IM DAILY PRN PRN Reason: agitation Ondansetron HCl (Ondansetron Hcl 4 Mg/2 Ml Vial) 4 mg IVPUSH Q8H PRN PRN Reason: Nausea and Vomiting Oxycodone HCl (Oxycodone Hcl Immed Release 5 Mg Tablet) 5 mg PO Q8H PRN PRN Reason: Pain, Moderate(Pain Scale 4-6) Last Admin: 01/04/23 08:00 Dose: 5 mg Documented By: GILLIAN Pharmacy Consult (Consult Rx Perform Med Rec) 1 each MISCELLANE ONCE PRN PRN Reason: Consult order Pravastatin Sodium (Pravastatin Sodium 40 Mg Tablet) 40 mg PO BEDTIME COUNTS INCLUDE 234 BEDS AT THE [facility] Last Admin: 01/03/23 21:06 Dose: 40 mg Documented By: MARILEE Sodium Chloride (0.9 % Sodium Chloride Flush 3 Ml Syringe) 3 ml IVFLUSH QSHIFT COUNTS INCLUDE 234 BEDS AT THE [facility] Last Admin: 01/04/23 07:57 Dose: 3 ml Documented By: GILLIAN Tamsulosin HCl (Tamsulosin Hcl 0.4 Mg Capsule) 0.4 mg PO DAILY COUNTS INCLUDE 234 BEDS AT THE [facility] Last Admin: 01/04/23 07:56 Dose: 0.4 mg Documented By: GILLIAN Labs 01/04/23 05:31 01/04/23 05:31 Labs: Laboratory Results - last 24 hr 01/03/23 01/03/23 01/03/23 10:31 11:26 16:14 MCV MCH MCHC RDW Plt Count MPV Absolute Nucleated RBC Nucleated RBC % (auto) Anion Gap Estim Creat Clear Calc Estimated GFR POC Glucose 175 H 158 H 158 H Fasting Glucose Calcium 01/03/23 01/04/23 01/04/23 20:04 05:31 05:31 MCV 88.0 MCH 30.4 MCHC 34.6 RDW 12.7 Plt Count 317 MPV 9.9 Absolute Nucleated RBC 0.000 Nucleated RBC % (auto) 0.0 Anion Gap 18 Estim Creat Clear Calc 25.6 Estimated GFR 32 POC Glucose 156 H Fasting Glucose 150 H Calcium 8.8 01/04/23 07:19 MCV MCH MCHC RDW Plt Count MPV Absolute Nucleated RBC Nucleated RBC % (auto) Anion Gap Estim Creat Clear Calc Estimated GFR POC Glucose 158 H Fasting Glucose Calcium Assessment and Plan (1) ANTONELLA (acute kidney injury): Status: Acute Plan 82M PMH paroxysmal afib on eliquis, DM, prostate ca, presented with weakness, antonella paroxysmal afib with rvr eliquis, started metoprolol, increased diltiazem to 240 daily - though patient refusing meds intermittently AMS acute delerium vs chronic dementia +/- delerium psychiatry appreciated, currently patient lack capacity to make most medical decisions and unlikely to be able to live safely independently antonella renal us with mild bilateral hydro eval dm insulin uti ceftin completed weakness pt prostate ca gu eval dvt prophylaxis - eliquis full code reason for continued hospitalization:unsteady, awaiting safe dispo, antonella Time Spent With Patient Time: Total time managing care of this patient today ____ minutes. Quality Stroke Does the patient have a stroke diagnosis?: No VTE Prior VTE?: No VTE Risk Level:: Medical - moderate - high VTE Device Contraindication: Treatment Not Indicated VTE Drug Contraindication: N/A - Med Ordered
[2023-01-04 11:26] VITALS: BP 159/72; PULSE 94; RESP 20; TEMP 36.8; O2SAT 96
[2023-01-04 11:33] LABS: Glucose, Whole Blood 204 mg/dL (60-115)
--- NOTE | 2023-01-04 14:09 | MHC.CM.PN ---
This CM received a phone call from pts [id number] Mojgan, she states her daughter (the pts niece) has a copy of the pts HCP and will bring it in tomorrow.
[2023-01-04 14:53] VITALS: BP 126/72; PULSE 84; RESP 18; TEMP 36.6; O2SAT 97
[2023-01-04 16:06] LABS: Glucose, Whole Blood 189 mg/dL (60-115)
[2023-01-04 18:51] VITALS: BP 137/72; PULSE 96; RESP 18; TEMP 36.8; O2SAT 96
[2023-01-04 20:36] LABS: Glucose, Whole Blood 167 mg/dL (60-115)
[2023-01-04] MEDS: Pravastatin Sodium 40 MG TABLET PO (22:07)
[2023-01-04 23:27] VITALS: BP 140/74; PULSE 94; RESP 18; TEMP 37.3; O2SAT 96
[2023-01-05 04:00] VITALS: BP 141/76; PULSE 97; RESP 18; TEMP 36.8; O2SAT 95
[2023-01-05 07:14] VITALS: BP 147/86; PULSE 99; RESP 20; TEMP 37.2; O2SAT 94
[2023-01-05 07:37] LABS: Glucose, Whole Blood 166 mg/dL (60-115)
[2023-01-05] MEDS: Insulin Lispro 100 UNIT/ML 3 ML VIAL SUBCUT ×4 (08:04→20:45)
[2023-01-05] MEDS: amLODIPine Besylate 5 MG TABLET PO (08:05)
[2023-01-05] MEDS: 0.9 % Sodium Chloride Flush 3 ML SYRINGE IVFLUSH ×3 (08:05→20:51)
[2023-01-05] MEDS: Metoprolol Tartrate 25 MG TABLET PO ×2 (08:05→20:45)
[2023-01-05] MEDS: Docusate Sodium 100 MG CAPSULE PO (08:05)
[2023-01-05] MEDS: Apixaban 5 MG TABLET PO ×2 (08:05→20:44)
[2023-01-05] MEDS: Tamsulosin HCL 0.4 MG CAPSULE PO (08:05)
--- NOTE | 2023-01-05 09:33 | HO.PM.IMPN ---
Subjective Subjective Date of Service: 01/05/23 Interval History: f/u on weaknes, renal failure no issues, but refuses care Physical Exam Vital Signs: Vital Signs: Last Vital Signs Temp 98.9 F 01/05/23 07:14 Pulse 99 01/05/23 07:14 Resp 20 01/05/23 07:14 BP 147/86 H 01/05/23 07:14 Pulse Ox 94 01/05/23 07:14 O2 Del Method Room Air 01/05/23 07:14 BMI result Body Mass Index 24.2 Const: Other: General: AO X 3, no acute distress Resp: CTA bilateral CVS: S1,S2,RRR GI: +BS, NT, no distention Skin: No rash Neuro: motor grossly intact Psych: appropriate affect Objective Data Active Medications Acetaminophen (Acetaminophen 325 Mg Tablet) 650 mg PO Q6H PRN PRN Reason: Pain, Mild (Pain Scale 1-3) Last Admin: 12/31/22 20:45 Dose: 650 mg Documented By: BENIGNO Amlodipine Besylate (Amlodipine Besylate 5 Mg Tablet) 5 mg PO DAILY [facility]; Protocol Last Admin: 01/05/23 08:05 Dose: 5 mg Documented By: MIKE Apixaban (Apixaban 5 Mg Tablet) 5 mg PO BID [facility] Last Admin: 01/05/23 08:05 Dose: 5 mg Documented By: MIKE Docusate Sodium (Docusate Sodium 100 Mg Capsule) 100 mg PO DAILY PRN PRN Reason: Constipation Last Admin: 01/05/23 08:05 Dose: 100 mg Documented By: MIKE Glucose (Glucose Gel 15 Gm Gel..Gram.) 15 gm PO Q15M PRN; Protocol PRN Reason: per Hypoglycemia Standing Ord. Dextrose (D10) 250 mls @ 750 mls/hr IV Q15M PRN; Protocol PRN Reason: per Hypoglycemia Standing Ord. Insulin Human Lispro (Insulin Lispro 100 Unit/Ml 3 Ml Vial) 0 unit SUBCUT QIDACHS [facility]; Protocol Last Admin: 01/05/23 08:04 Dose: 2 unit Documented By: MIKE Metoprolol Tartrate (Metoprolol Tartrate 25 Mg Tablet) 25 mg PO BID [facility]; Protocol Last Admin: 01/05/23 08:05 Dose: 25 mg Documented By: MIKE Olanzapine (Olanzapine 10 Mg Vial) 5 mg IM DAILY PRN PRN Reason: agitation Ondansetron HCl (Ondansetron Hcl 4 Mg/2 Ml Vial) 4 mg IVPUSH Q8H PRN PRN Reason: Nausea and Vomiting Oxycodone HCl (Oxycodone Hcl Immed Release 5 Mg Tablet) 5 mg PO Q8H PRN PRN Reason: Pain, Moderate(Pain Scale 4-6) Last Admin: 01/04/23 08:00 Dose: 5 mg Documented By: GILLIAN Pharmacy Consult (Consult Rx Perform Med Rec) 1 each MISCELLANE ONCE PRN PRN Reason: Consult order Pravastatin Sodium (Pravastatin Sodium 40 Mg Tablet) 40 mg PO BEDTIME [facility] Last Admin: 01/04/23 22:07 Dose: 40 mg Documented By: SONYA Sodium Chloride (0.9 % Sodium Chloride Flush 3 Ml Syringe) 3 ml IVFLUSH QSHIFT [facility] Last Admin: 01/05/23 08:05 Dose: 3 ml Documented By: MIKE Tamsulosin HCl (Tamsulosin Hcl 0.4 Mg Capsule) 0.4 mg PO DAILY [facility] Last Admin: 01/05/23 08:05 Dose: 0.4 mg Documented By: MIKE Labs 01/04/23 05:31 01/04/23 05:31 Labs: Laboratory Results - last 24 hr 01/04/23 01/04/23 01/04/23 11:29 15:56 20:27 POC Glucose 204 H 189 H 167 H 01/05/23 07:33 POC Glucose 166 H Assessment and Plan (1) ANTONELLA (acute kidney injury): Status: Acute Plan 82M PMH paroxysmal afib on eliquis, DM, prostate ca, presented with weakness, antonella paroxysmal afib with rvr eliquis, started metoprolol, increased diltiazem to 240 daily - though patient refusing meds intermittently AMS acute delerium vs chronic dementia +/- delerium psychiatry appreciated, currently patient lack capacity to make most medical decisions and unlikely to be able to live safely independently antonella, Cr was increasing renal us with mild bilateral hydro eval pending, repeat labs today dm insulin uti completed ceftin weakness refusing pt eval prostate ca gu eval dvt prophylaxis - eliquis full code reason for continued hospitalization:unsteady, awaiting safe dispo, antonella Time Spent With Patient Time: Total time managing care of this patient today ____ minutes. Quality Stroke Does the patient have a stroke diagnosis?: No VTE Prior VTE?: No VTE Risk Level:: Medical - moderate - high VTE Device Contraindication: Treatment Not Indicated VTE Drug Contraindication: N/A - Med Ordered
[2023-01-05 10:20] LABS: Anion Gap 18 (12-20); Blood Urea Nitrogen 42 mg/dL (9-16); Calcium 8.9 mg/dL (8.4-10.2); Carbon Dioxide 19 mmol/L (22-29); Chloride 107 mmol/L (96-108); Creatinine Clr Calc Pharmacy 23.1; Estimated Glomerular Filt Rate 29; Glucose Random 206 mg/dL (60-115); Potassium 4.1 mmol/L (3.3-5.1); Sodium 140 mmol/L (135-145)
[2023-01-05 10:56] LABS: Glucose, Whole Blood 218 mg/dL (60-115)
[2023-01-05 11:04] VITALS: BP 147/81; PULSE 90; RESP 20; TEMP 37.2; O2SAT 93
--- NOTE | 2023-01-05 11:16 | MHC.CLN ---
F/U PT WITH INCREASED NUTRITION RISK R/T PRESSURE INJURY SEE FULL CLINICAL NUTRITION ASSESSMENT DATED 01/03/23 PO INTAKE 50% AVG DIET RX: 2000DM-APPROPRIATE PT RECEIVING ENSURE MAX BID TO PROMOTE WOUND HEALING PROVIDES 300KCALS, 60G PROTEIN WITH 100% ACCEPTANCE MONITOR PO INTAKE
--- NOTE | 2023-01-05 12:39 | MHC.CM.PN ---
CM awaits delivery of HCP from Patient's Sister and PT eval that potential SNFs are requesting. CM will follow.
--- NOTE | 2023-01-05 13:00 | P.CDIM_ITS ---
PROVIDER RESPONSE TEXT: To clarify, the appropriate diagnosis supported by the clinical indicators: Other (explain): no able further classified QUERY TEXT: PHYSICIAN'S DOCUMENTATION REQUEST Date of Query: 01/05/2023 12:09 PM EDT Patient Name: Donte Hernandez Admit Date: 12/31/2022 Dear Prashant Champion, A review of the medical record indicates additional documentation may be needed. Please review below and update the documentation accordingly. Clinical Indicators: Per nursing pressure injury assessment 01/01/23: L buttock stage 2 beefy red pink wound bed, peely skin, bloody at times Saline irrigant, foam dressing Based on the above, could you clarify the type of wound that supports the above abnormalities and add itional evaluation, monitoring, and/or treatment rendered: Pressure ulcer stage 2 L buttock Wound L buttock due to friction/shear Other (explain)Clinically unable to determine (explain)Thank you, Pauly Garcia RN Use of terms such as suspected, likely, concern for, or probable (associated with a specific diagnosi s that is being evaluated, monitored, or treated as if it exists) are acceptable and can be coded in the inpatient se tting, when documented at the time of discharge. Please use your independent medical judgment in providing your response. THIS QUERY IS PART OF THE PERMANENT MEDICAL RECORD
--- NOTE | 2023-01-05 13:46 | MHC.CM.PN ---
Patient's Niece has provided CM with a copy of the HCP that has been uploaded into [facility] and will be sent to SNF referrals. CM will follow.
[2023-01-05 15:13] VITALS: BP 141/68; PULSE 81; RESP 17; TEMP 36.8; O2SAT 93
[2023-01-05 15:52] LABS: Glucose, Whole Blood 261 mg/dL (60-115)
[2023-01-05] MEDS: Bicalutamide 50 MG TABLET PO (15:58)
[2023-01-05 19:22] VITALS: BP 145/75; PULSE 90; RESP 14; TEMP 36.6; O2SAT 97
[2023-01-05 19:56] LABS: Glucose, Whole Blood 310 mg/dL (60-115)
[2023-01-05] MEDS: Pravastatin Sodium 40 MG TABLET PO (20:44)
[2023-01-05 23:57] VITALS: BP 163/86; PULSE 88; RESP 18; TEMP 37.1; O2SAT 97
[2023-01-06 04:00] VITALS: BP 156/85; PULSE 98; RESP 16; TEMP 36.6; O2SAT 96
[2023-01-06 07:23] LABS: Glucose, Whole Blood 178 mg/dL (60-115)
[2023-01-06 07:44] VITALS: BP 140/82; PULSE 98; RESP 18; TEMP 36.6; O2SAT 96
[2023-01-06] MEDS: 0.9 % Sodium Chloride Flush 3 ML SYRINGE IVFLUSH ×3 (07:57→19:53)
[2023-01-06] MEDS: Insulin Lispro 100 UNIT/ML 3 ML VIAL SUBCUT ×4 (07:57→21:29)
[2023-01-06] MEDS: amLODIPine Besylate 5 MG TABLET PO (07:57)
[2023-01-06] MEDS: Tamsulosin HCL 0.4 MG CAPSULE PO ×2 (07:57→11:26)
[2023-01-06] MEDS: Metoprolol Tartrate 25 MG TABLET PO ×2 (07:58→21:29)
[2023-01-06] MEDS: Bicalutamide 50 MG TABLET PO (07:58)
[2023-01-06] MEDS: Apixaban 2.5 MG TABLET PO ×2 (08:35→21:29)
[2023-01-06] MEDS: oxyCODONE HCl Immed Release 5 MG TABLET PO (08:35)
[2023-01-06 11:24] LABS: Glucose, Whole Blood 220 mg/dL (60-115)
[2023-01-06] MEDS: Finasteride 5 MG TABLET PO (11:26)
--- NOTE | 2023-01-06 11:33 | P.PNIM_ITS ---
Subjective Subjective Date of Service: 01/06/23 Interval History: Seen and evaluated this morning Denies any fever or chills Cr worsening passing urine but with straining and hesitency No other overnight events Review of Systems Review of Systems: Yes all other systems are reviewed and are negative Physical Exam Vital Signs: Vital Signs: Last Vital Signs Temp 97.8 F 01/06/23 07:44 Pulse 98 01/06/23 07:44 Resp 18 01/06/23 07:44 BP 140/82 H 01/06/23 07:44 Pulse Ox 96 01/06/23 07:44 O2 Del Method Room Air 01/06/23 07:44 BMI result Body Mass Index 24.2 Const: Other: General: AO X 3, no acute distress Resp: CTA bilateral CVS: S1,S2,RRR GI: +BS, NT, no distention Skin: No rash Neuro: motor grossly intact Psych: appropriate affect Objective Data Active Medications Acetaminophen (Acetaminophen 325 Mg Tablet) 650 mg PO Q6H PRN PRN Reason: Pain, Mild (Pain Scale 1-3) Last Admin: 12/31/22 20:45 Dose: 650 mg Documented By: BENIGNO Amlodipine Besylate (Amlodipine Besylate 5 Mg Tablet) 5 mg PO DAILY [facility]; Protocol Last Admin: 01/06/23 07:57 Dose: 5 mg Documented By: RONALDO Apixaban (Apixaban 2.5 Mg Tablet) 2.5 mg PO BID [facility] Last Admin: 01/06/23 08:35 Dose: 2.5 mg Documented By: RONALDO Bicalutamide (Bicalutamide 50 Mg Tablet) 50 mg PO DAILY [facility] Last Admin: 01/06/23 07:58 Dose: 50 mg Documented By: RONALDO Docusate Sodium (Docusate Sodium 100 Mg Capsule) 100 mg PO DAILY PRN PRN Reason: Constipation Last Admin: 01/05/23 08:05 Dose: 100 mg Documented By: RIOSCJOSESITO Finasteride (Finasteride 5 Mg Tablet) 5 mg PO DAILY [facility] Last Admin: 01/06/23 11:26 Dose: 5 mg Documented By: RONALDO Glucose (Glucose Gel 15 Gm Gel..Gram.) 15 gm PO Q15M PRN; Protocol PRN Reason: per Hypoglycemia Standing Ord. Dextrose (D10) 250 mls @ 750 mls/hr IV Q15M PRN; Protocol PRN Reason: per Hypoglycemia Standing Ord. Insulin Human Lispro (Insulin Lispro 100 Unit/Ml 3 Ml Vial) 0 unit SUBCUT QIDACHS [facility]; Protocol Last Admin: 01/06/23 07:57 Dose: 2 unit Documented By: RONALDO Metoprolol Tartrate (Metoprolol Tartrate 25 Mg Tablet) 25 mg PO BID [facility]; Protocol Last Admin: 01/06/23 07:58 Dose: 25 mg Documented By: RONALDO Olanzapine (Olanzapine 10 Mg Vial) 5 mg IM DAILY PRN PRN Reason: agitation Ondansetron HCl (Ondansetron Hcl 4 Mg/2 Ml Vial) 4 mg IVPUSH Q8H PRN PRN Reason: Nausea and Vomiting Oxycodone HCl (Oxycodone Hcl Immed Release 5 Mg Tablet) 5 mg PO Q4H PRN PRN Reason: Pain, Severe (Pain Scale 7-10) Last Admin: 01/06/23 08:35 Dose: 5 mg Documented By: RONALDO Pharmacy Consult (Consult Rx Perform Med Rec) 1 each MISCELLANE ONCE PRN PRN Reason: Consult order Pravastatin Sodium (Pravastatin Sodium 40 Mg Tablet) 40 mg PO BEDTIME [facility] Last Admin: 01/05/23 20:44 Dose: 40 mg Documented By: PADMINI Sodium Chloride (0.9 % Sodium Chloride Flush 3 Ml Syringe) 3 ml IVFLUSH QSHIFT [facility] Last Admin: 01/06/23 07:57 Dose: 3 ml Documented By: RONALDO Tamsulosin HCl (Tamsulosin Hcl 0.4 Mg Capsule) 0.8 mg PO DAILY [facility] Labs 01/04/23 05:31 01/05/23 09:59 Labs: Laboratory Results - last 24 hr 01/05/23 01/05/23 01/06/23 15:48 19:52 07:15 POC Glucose 261 H 310 H 178 H 01/06/23 11:19 POC Glucose 220 H Microbiology Microbiology Results: Microbiology 12/31/22 09:56 Blood Culture - Final Blood - Venous No growth after 5 days. 12/31/22 09:56 Blood Culture - Final Blood - Venous No growth after 5 days. Assessment and Plan (1) ANTONELLA (acute kidney injury): Status: Acute (2) Atrial fibrillation with rapid ventricular response: Status: Acute (3) Cognitive disorder: Status: Acute Plan An 82M PMH paroxysmal afib on eliquis, DM, prostate ca, presented with weakness, antonella Paroxysmal afib with rvr better controlled continue eliquis On metoprolol, 25 mg bid AMS acute delerium vs chronic dementia +/- delerium psychiatry appreciated, currently patient lack capacity to make most medical decisions and unlikely to be able to live safely independently OT eval for MoCA and ACLS, to assess his level of cognitive impairment and need for supportive services for independent living Outpatient dementia eval by neuro referral antonella, Cr was increasing renal us with mild bilateral hydro eval pending, get nephro eval avoid nephrotoxic meds dm insulin uti completed ceftin weakness refusing pt eval prostate ca gu eval dvt prophylaxis - eliquis full code reason for continued hospitalization:unsteady, awaiting safe dispo, antonella Time Spent With Patient Time: Total time managing care of this patient today ____ minutes. Quality Stroke Does the patient have a stroke diagnosis?: No VTE Prior VTE?: No VTE Risk Level:: Medical - moderate - high VTE Device Contraindication: Treatment Not Indicated VTE Drug Contraindication: N/A - Med Ordered
[2023-01-06 12:00] VITALS: BP 148/78; PULSE 89; RESP 16; TEMP 37.1; O2SAT 96
--- NOTE | 2023-01-06 12:21 | PM.CNNEP ---
History of Present Illness Reason for Consult Consult date: 01/06/23 <Shawn Quintanilla MD - Last Filed: 01/06/23 12:24> 01/10/23 <Erik Medrano MD - Last Filed: 01/10/23 17:39> Reason for consult: ANTONELLA <Shawn Quintanilla MD - Last Filed: 01/06/23 12:24> Chief Complaint Chief complaint: ANTONELLA, genearlized weakness <Shawn Quintanilla MD - Last Filed: 01/06/23 12:24> History of Present Illness Narrative: ?82-year-old male with a PMH significant for recently diagnosed?AFib on Eliquis, [id number] diabetes, and enlarged prostate who presents to the ED with?generalized weakness.? Patient recently presented to the emergency room 5 days prior on 12/26/2022 for evaluation of lower back pain.? Patient was found to have new onset AFib with RVR and a likely UTI.? CT scan of abdomen and pelvis found a marked heterogeneous enlargement the prostate gland with asymmetric nodular thickening of the left seminal vesicle concerning for primary malignancy.? Patient was discharged home on cefuroxime 500 mg p.o. b.i.d. x7 days and advised to follow-up with Urology outpatient about enlarged prostate.? Patient states that he presented to the ED today because he was experiencing back pain/spasm while lying on the couch earlier in the day and lowered himself to the floor do stretches back out.? Patient was unable to stand or get back up on the couch so he called his brother who came to the house and told the patient he had too many things of his own to do to continue to help him out.? The patient's brother then called the ambulance to take him to the hospital. Patient seems overwhelmed at his new diagnoses in uncertain what to moving forward as he apparently lacks home support Baseline creatinine is about 1.0. There has been fluctuation in the creatinine this admission. Creatinine has bumped up to 2.2. On December 27 CT scan without IV contrast showed normal kidneys without hydronephrosis. On January 02 ultrasound showed bilateral hydronephrosis mild. <Shawn Quintanilla MD - Last Filed: 01/06/23 12:24> Review of Systems Review of Systems No headache. No nausea vomiting. No abdominal pain. No shortness of breath. No cough. No dysuria urgency or hematuria. No edema. No rash. <Shawn Quintanilla MD - Last Filed: 01/06/23 12:24> [facility] Past Medical History Medical History: Medical History Atrial fibrillation Diabetes mellitus Osteomyelitis Prostate cancer <Shawn Quintanilla MD - Last Filed: 01/06/23 12:24> Social History Social History: Social History Household Members: None Housing: House Do you presently have visiting nurse or other home services: No Alcohol intake: former Patient Tobacco Use Status: Former Tobacco user Smoked in Last 30 Days: Yes Use of substances other than those prescribed or required for medical reasons: No Currently Displaying Signs/Symptoms of Drug Intoxication Withdrawal: No Any prior treatment program specific to substance use: No Have you been hit, kicked, punched, or otherwise hurt by someone within the past year? If so, by whom?: No Do you feel safe in your current relationship?: Yes Is there a partner from a previous relationship who is making you feel unsafe now?: No Are you made to feel afraid or neglected: No Advance Directives: No Do you have thoughts of harming others: None Do you have a plan to hurt others: No Plan Recently lost weight without trying: Unsure How much weight loss: Unsure Eating poorly because of decreased appetite: Yes Nutrition screen score: 5 Nutrition Risks: Dental problems and Poor intake 0-25% >4 days Poor oral hygiene: No service: No Current occupational status: retired <Shawn Quintanilla MD - Last Filed: 01/06/23 12:24> Meds Allergies/Adverse reactions: Allergies Allergy/AdvReac Type Severity Reaction Status Date / Time No Known Allergies Allergy Mild NOT Verified 12/26/22 21:17 [No Known Allergies*] APPLICABLE <Shawn Quintanilla MD - Last Filed: 01/06/23 12:24> Active Medications: Current Medications Acetaminophen (Acetaminophen 325 Mg Tablet) 650 mg PO Q6H PRN PRN Reason: Pain, Mild (Pain Scale 1-3) Last Admin: 12/31/22 20:45 Dose: 650 mg Amlodipine Besylate (Amlodipine Besylate 5 Mg Tablet) 5 mg PO DAILY [facility]; Protocol Last Admin: 01/06/23 07:57 Dose: 5 mg Apixaban (Apixaban 2.5 Mg Tablet) 2.5 mg PO BID [facility] Last Admin: 01/06/23 08:35 Dose: 2.5 mg Bicalutamide (Bicalutamide 50 Mg Tablet) 50 mg PO DAILY [facility] Last Admin: 01/06/23 07:58 Dose: 50 mg Docusate Sodium (Docusate Sodium 100 Mg Capsule) 100 mg PO DAILY PRN PRN Reason: Constipation Last Admin: 01/05/23 08:05 Dose: 100 mg Finasteride (Finasteride 5 Mg Tablet) 5 mg PO DAILY [facility] Last Admin: 01/06/23 11:26 Dose: 5 mg Glucose (Glucose Gel 15 Gm Gel..Gram.) 15 gm PO Q15M PRN; Protocol PRN Reason: per Hypoglycemia Standing Ord. Dextrose (D10) 250 mls @ 750 mls/hr IV Q15M PRN; Protocol PRN Reason: per Hypoglycemia Standing Ord. Insulin Human Lispro (Insulin Lispro 100 Unit/Ml 3 Ml Vial) 0 unit SUBCUT QIDACHS [facility]; Protocol Last Admin: 01/06/23 11:41 Dose: 4 unit Metoprolol Tartrate (Metoprolol Tartrate 25 Mg Tablet) 25 mg PO BID [facility]; Protocol Last Admin: 01/06/23 07:58 Dose: 25 mg Olanzapine (Olanzapine 10 Mg Vial) 5 mg IM DAILY PRN PRN Reason: agitation Ondansetron HCl (Ondansetron Hcl 4 Mg/2 Ml Vial) 4 mg IVPUSH Q8H PRN PRN Reason: Nausea and Vomiting Oxycodone HCl (Oxycodone Hcl Immed Release 5 Mg Tablet) 5 mg PO Q4H PRN PRN Reason: Pain, Severe (Pain Scale 7-10) Last Admin: 01/06/23 08:35 Dose: 5 mg Pharmacy Consult (Consult Rx Perform Med Rec) 1 each MISCELLANE ONCE PRN PRN Reason: Consult order Pravastatin Sodium (Pravastatin Sodium 40 Mg Tablet) 40 mg PO BEDTIME [facility] Last Admin: 01/05/23 20:44 Dose: 40 mg Sodium Chloride (0.9 % Sodium Chloride Flush 3 Ml Syringe) 3 ml IVFLUSH QSHIFT [facility] Last Admin: 01/06/23 07:57 Dose: 3 ml Tamsulosin HCl (Tamsulosin Hcl 0.4 Mg Capsule) 0.8 mg PO DAILY [facility] <Shawn Quintanilla MD - Last Filed: 01/06/23 12:24> Home medications: Home Medications Medication Instructions Recorded Confirmed Last Taken Type amlodipine 5 mg tablet 5 mg PO DAILY 12/31/22 12/31/22 Unknown History clopidogrel 75 mg tablet 75 mg PO DAILY 12/31/22 12/31/22 Unknown History lisinopril 40 mg tablet 40 mg PO DAILY 12/31/22 12/31/22 Unknown History metformin 500 mg tablet,extended 2,000 mg PO QAM 12/31/22 12/31/22 Unknown History release 24 hr oxycodone 5 mg tablet 5 mg PO Q8H PRN pain 12/31/22 12/31/22 Unknown History oxycodone-acetaminophen 5 mg-325 1 tab PO DAILY PRN pain 12/31/22 12/31/22 Unknown History mg tablet pravastatin 40 mg tablet 40 mg PO BEDTIME 12/31/22 12/31/22 Unknown History tamsulosin 0.4 mg capsule 0.4 mg PO DAILY 12/31/22 12/31/22 Unknown History <Shawn Quintanilla MD - Last Filed: 01/06/23 12:24> Physical Exam Vital Signs: Last Vital Signs Temp 98.7 F 01/06/23 12:00 Pulse 89 01/06/23 12:00 Resp 16 01/06/23 12:00 BP 148/78 H 01/06/23 12:00 Pulse Ox 96 01/06/23 12:00 O2 Del Method Room Air 01/06/23 12:00 BMI result Body Mass Index 24.2 <Shawn Quintanilla MD - Last Filed: 01/06/23 12:24> Comfortable Neck is supple Lung: Air entry equal Heart: S1,S2, normal. No rub Abd: Soft. BS + huge suprapubic mass with dull to percussion suggestive of distended urinary bladder. NS : Alert.No asterexis Ext: No edema <Shawn Quintanilla MD - Last Filed: 01/06/23 12:24> Results Lab Results Result Diagrams: 01/04/23 05:31 01/05/23 09:59 <Shawn Quintanilla MD - Last Filed: 01/06/23 12:24> Lab results: Chemistry 01/04/23 01/05/23 05:31 09:59 Sodium 139 140 Potassium 4.8 4.1 Carbon Dioxide 20 L 19 L BUN 39 H 42 H Creatinine 2.00 H 2.21 H Calcium 8.8 8.9 Hematology 01/04/23 05:31 WBC 13.1 H Hgb 12.2 L Plt Count 317 <Shawn Quintanilla MD - Last Filed: 01/06/23 12:24> Assessment and Plan (1) ANTONELLA (acute kidney injury): Status: Acute <Shawn Quintanilla MD - Last Filed: 01/06/23 12:24> Acute kidney injury most likely due to bladder outlet obstruction/obstructive uropathy. Mild metabolic acidosis due to ANTONELLA. Mild anemia. Recommendations Check renal ultrasonogram. Insert C[place] catheter. Check urine for sodium, creatinine, protein. Urology evaluation. If bicarb drops further I would administer oral sodium bicarbonate. <Shawn Quintanilla MD - Last Filed: 01/06/23 12:24> Time Spent With Patient Time: Total time managing care of this patient today ____ minutes. <Shawn Quintanilla MD - Last Filed: 01/06/23 12:24> Procedures Date of Service Date of Service: 01/06/23 <Shawn Quintanilla MD - Last Filed: 01/06/23 12:24> 01/10/23 <Erik Medrano MD - Last Filed: 01/10/23 17:39>
--- NOTE | 2023-01-06 14:09 | MHC.CM.PN ---
SNF REFERRALS UPDATED NO PLAN FOR DC TODAY KIDNEY FUNCTION WORSENING
--- NOTE | 2023-01-06 14:34 | P.CNUR_ITS ---
History of Present Illness Consult details Consult date: 01/06/23 Narrative: CC: Question of mild left hydronephrosis with rising creatinine , prostate cancer with metastatic disease 82-year-old male Past medical history significant for noninsulin dependent diabetes, AFib on Eliquis Known large prostate Present through emergency room with UTI and weakness with confusion CT scan showed markedly enlarged prostate with asymmetric nodular thickening of left seminal vesicle, bladder stone 1.5 cm, small renal stones, right hydronephrosis but minimal ureteral swelling PSA test taken measures 273 Complaining of back pain and back spasms past few weeks. Initial WBC 12.0, creatinine 1.4 Recommend bone scan, start bicalutamide Would need prostate biopsies in order to start GnRH therapy Review of Systems Constitutional: Constitutional: Denies chills and Denies fever(s) Cardiovascular: Cardiovascular: Reports no additional cardiovascular complaints and Denies syncope Respiratory: Respiratory: Denies cough Gastrointestinal: Gastrointestinal: Denies abdominal pain and Denies heartburn Genitourinary: Genitourinary: Reports as per HPI and Denies change in libido Neurologic: Denies syncope Psychiatric: Psychiatric: Denies change in libido Endocrine: Endocrine: Denies change in libido [facility] Past Medical History Medical History Atrial fibrillation Diabetes mellitus Prostate cancer Social History Social History Household Members: None Housing: House Do you presently have visiting nurse or other home services: No Alcohol intake: former Patient Tobacco Use Status: Former Tobacco user Smoked in Last 30 Days: Yes Use of substances other than those prescribed or required for medical reasons: No Currently Displaying Signs/Symptoms of Drug Intoxication Withdrawal: No Any prior treatment program specific to substance use: No Have you been hit, kicked, punched, or otherwise hurt by someone within the past year? If so, by whom?: No Do you feel safe in your current relationship?: Yes Is there a partner from a previous relationship who is making you feel unsafe now?: No Are you made to feel afraid or neglected: No Advance Directives: No Do you have thoughts of harming others: None Do you have a plan to hurt others: No Plan Recently lost weight without trying: Unsure How much weight loss: Unsure Eating poorly because of decreased appetite: Yes Nutrition screen score: 5 Nutrition Risks: Dental problems and Poor intake 0-25% >4 days Poor oral hygiene: No service: No Current occupational status: retired Meds Allergies Allergy/AdvReac Type Severity Reaction Status Date / Time No Known Allergies Allergy Mild NOT Verified 12/26/22 21:17 [No Known Allergies*] APPLICABLE Active Medications: Current Medications Acetaminophen (Acetaminophen 325 Mg Tablet) 650 mg PO Q6H PRN PRN Reason: Pain, Mild (Pain Scale 1-3) Last Admin: 12/31/22 20:45 Dose: 650 mg Amlodipine Besylate (Amlodipine Besylate 5 Mg Tablet) 5 mg PO DAILY [facility]; Protocol Last Admin: 01/06/23 07:57 Dose: 5 mg Apixaban (Apixaban 2.5 Mg Tablet) 2.5 mg PO BID [facility] Last Admin: 01/06/23 08:35 Dose: 2.5 mg Bicalutamide (Bicalutamide 50 Mg Tablet) 50 mg PO DAILY [facility] Last Admin: 01/06/23 07:58 Dose: 50 mg Docusate Sodium (Docusate Sodium 100 Mg Capsule) 100 mg PO DAILY PRN PRN Reason: Constipation Last Admin: 01/05/23 08:05 Dose: 100 mg Finasteride (Finasteride 5 Mg Tablet) 5 mg PO DAILY [facility] Last Admin: 01/06/23 11:26 Dose: 5 mg Glucose (Glucose Gel 15 Gm Gel..Gram.) 15 gm PO Q15M PRN; Protocol PRN Reason: per Hypoglycemia Standing Ord. Dextrose (D10) 250 mls @ 750 mls/hr IV Q15M PRN; Protocol PRN Reason: per Hypoglycemia Standing Ord. Insulin Human Lispro (Insulin Lispro 100 Unit/Ml 3 Ml Vial) 0 unit SUBCUT QIDACHS [facility]; Protocol Last Admin: 01/06/23 11:41 Dose: 4 unit Metoprolol Tartrate (Metoprolol Tartrate 25 Mg Tablet) 25 mg PO BID [facility]; Prot ocol Last Admin: 01/06/23 07:58 Dose: 25 mg Olanzapine (Olanzapine 10 Mg Vial) 5 mg IM DAILY PRN PRN Reason: agitation Ondansetron HCl (Ondansetron Hcl 4 Mg/2 Ml Vial) 4 mg IVPUSH Q8H PRN PRN Reason: Nausea and Vomiting Oxycodone HCl (Oxycodone Hcl Immed Release 5 Mg Tablet) 5 mg PO Q4H PRN PRN Reason: Pain, Severe (Pain Scale 7-10) Last Admin: 01/06/23 08:35 Dose: 5 mg Pharmacy Consult (Consult Rx Perform Med Rec) 1 each MISCELLANE ONCE PRN PRN Reason: Consult order Pravastatin Sodium (Pravastatin Sodium 40 Mg Tablet) 40 mg PO BEDTIME [facility] Last Admin: 01/05/23 20:44 Dose: 40 mg Sodium Chloride (0.9 % Sodium Chloride Flush 3 Ml Syringe) [facility] Last Admin: 01/06/23 07:57 Dose: 3 ml Tamsulosin HCl (Tamsulosin Hcl 0.4 Mg Capsule) 0.8 mg PO DAILY [facility] Home Medications Medication Instructions Recorded Confirmed Last Taken Type amlodipine 5 mg tablet 5 mg PO DAILY 12/31/22 12/31/22 Unknown History clopidogrel 75 mg tablet 75 mg PO DAILY 12/31/22 12/31/22 Unknown History lisinopril 40 mg tablet 40 mg PO DAILY 12/31/22 12/31/22 Unknown History metformin 500 mg tablet,extended 2,000 mg PO QAM 12/31/22 12/31/22 Unknown History release 24 hr oxycodone 5 mg tablet 5 mg PO Q8H PRN pain 12/31/22 12/31/22 Unknown History oxycodone-acetaminophen 5 mg-325 1 tab PO DAILY PRN pain 12/31/22 12/31/22 Unknown History mg tablet pravastatin 40 mg tablet 40 mg PO BEDTIME 12/31/22 12/31/22 Unknown History tamsulosin 0.4 mg capsule 0.4 mg PO DAILY 12/31/22 12/31/22 Unknown History Physical Exam Vital Signs: Vital Signs: Last Vital Signs Temp 98.7 F 01/06/23 12:00 Pulse 89 01/06/23 12:00 Resp 16 01/06/23 12:00 BP 148/78 H 01/06/23 12:00 Pulse Ox 96 01/06/23 12:00 O2 Del Method Room Air 01/06/23 12:00 BMI result Body Mass Index 24.2 Const: General: cooperative, healthy appearing, comfortable and no acute distress Orientation/consciousness: patient oriented x3 HEENT: Face and sinus: Yes normal facial exam Mouth: moist mucous membranes Neck: Neck: Yes normal visual inspection, Yes full ROM and Yes trachea midline Chest: Chest palpation & inspection: normal inspection of the chest Resp: Effort & Inspection: normal respiratory effort, able to speak in complete sentences and no respiratory distress GI: Inspection: Yes normal to inspection Back/Spine/Pelvis: Cervical Spine: normal cervical lordosis Thoracic/Lumbar Spine: thoracic and lumbar spine normal to inspection Skin: General skin exam: no rashes or lesions noted Neuro: General: patient oriented x3, gait normal, tone normal and moves all extremities Extrem: General: Yes normal to inspection and Yes capillary refill normal Results Labs 01/04/23 05:31 01/05/23 09:59 Labs: Abnormal lab results 01/05/23 01/05/23 01/06/23 Range/Units 15:48 19:52 07:15 POC Glucose 261 H 310 H 178 H (60-115) mg/dL 01/06/23 Range/Units 11:19 POC Glucose 220 H (60-115) mg/dL Urine 12/31/22 Range/Units 09:14 Urine Color Yellow Urine Appearance Clear Urine pH 5.0 (5.0-9.0) Ur Specific [place] 1.015 (1.005-1.025) Urine Protein 30 (1+) H (Neg-Trace) mg/dL Urine Glucose (UA) Negative (Negative) mg/dL All other labs normal. Assessment and Plan (1) Cognitive disorder: Status: Acute (2) Prostate cancer: Status: Acute (3) BPH (benign prostatic hyperplasia): Status: Acute Plan Bone scan Time Spent With Patient Time: Total time managing care of this patient today ____ minutes. Procedures Date of Service Date of Service: 01/06/23
[2023-01-06 15:11] VITALS: BP 148/67; PULSE 86; RESP 18; TEMP 36.2; O2SAT 96
[2023-01-06 15:39] LABS: Creatinine Urine 52.14 mg/dL
[2023-01-06 16:08] LABS: Glucose, Whole Blood 235 mg/dL (60-115)
--- NOTE | 2023-01-06 16:19 | PC.NURSE ---
oates catheter inserted at 1500 for urinary retention, draining dark yellow urine, pt tolerated well
[2023-01-06 19:19] VITALS: BP 132/67; PULSE 80; RESP 18; TEMP 36; O2SAT 97
[2023-01-06 20:23] LABS: Glucose, Whole Blood 172 mg/dL (60-115)
[2023-01-06] MEDS: Pravastatin Sodium 40 MG TABLET PO (21:29)
[2023-01-06 23:32] VITALS: BP 139/73; PULSE 88; RESP 14; TEMP 36.3; O2SAT 97
[2023-01-07 03:09] VITALS: BP 136/71; PULSE 93; RESP 16; TEMP 36.6; O2SAT 96
[2023-01-07 06:37] LABS: Anion Gap 14 (12-20); Blood Urea Nitrogen 46 mg/dL (9-16); Calcium 8.9 mg/dL (8.4-10.2); Carbon Dioxide 22 mmol/L (22-29); Chloride 106 mmol/L (96-108); Creatinine Clr Calc Pharmacy 25.4; Estimated Glomerular Filt Rate 32; Glucose Random 201 mg/dL (60-115); Potassium 3.5 mmol/L (3.3-5.1); Sodium 138 mmol/L (135-145)
[2023-01-07 07:12] LABS: Glucose, Whole Blood 187 mg/dL (60-115)
[2023-01-07 07:19] VITALS: BP 156/80; PULSE 95; RESP 16; TEMP 36.6; O2SAT 95
[2023-01-07] MEDS: Insulin Lispro 100 UNIT/ML 3 ML VIAL SUBCUT ×4 (07:58→20:19)
[2023-01-07] MEDS: Metoprolol Tartrate 25 MG TABLET PO ×2 (07:59→20:20)
[2023-01-07] MEDS: 0.9 % Sodium Chloride Flush 3 ML SYRINGE IVFLUSH ×3 (07:59→20:24)
[2023-01-07] MEDS: Tamsulosin HCL 0.4 MG CAPSULE 0.8 MG PO (07:59)
[2023-01-07] MEDS: Apixaban 2.5 MG TABLET PO (08:00)
[2023-01-07] MEDS: Bicalutamide 50 MG TABLET PO (08:00)
[2023-01-07] MEDS: Finasteride 5 MG TABLET PO (08:00)
[2023-01-07] MEDS: amLODIPine Besylate 5 MG TABLET PO (08:00)
--- NOTE | 2023-01-07 09:55 | P.PNIM_ITS ---
Subjective Subjective Date of Service: 01/07/23 Interval History: Seen and evaluated this morning Denies any fever or chills Cr mildly better Mclaughlin catheter inplace No other overnight events Review of Systems Review of Systems: Yes all other systems are reviewed and are negative Physical Exam Vital Signs: Vital Signs: Last Vital Signs Temp 97.8 F 01/07/23 07:19 Pulse 95 01/07/23 07:19 Resp 16 01/07/23 07:19 BP 156/80 H 01/07/23 07:19 Pulse Ox 95 01/07/23 07:19 O2 Del Method Room Air 01/07/23 07:19 BMI result Body Mass Index 24.2 Const: Other: General: AO X 2, no acute distress Resp: CTA bilateral CVS: S1,S2,irregular irregular GI: +BS, NT, no distention Skin: No rash, Mclaughlin in place Neuro: motor grossly intact Psych: appropriate affect Objective Data Active Medications Acetaminophen (Acetaminophen 325 Mg Tablet) 650 mg PO Q6H PRN PRN Reason: Pain, Mild (Pain Scale 1-3) Last Admin: 12/31/22 20:45 Dose: 650 mg Documented By: BENIGNO Amlodipine Besylate (Amlodipine Besylate 5 Mg Tablet) 5 mg PO DAILY REPLACED BY [facility]; Protocol Last Admin: 01/07/23 08:00 Dose: 5 mg Documented By: RONALDO Apixaban (Apixaban 2.5 Mg Tablet) 2.5 mg PO BID REPLACED BY [facility] Last Admin: 01/07/23 08:00 Dose: 2.5 mg Documented By: RONALDO Bicalutamide (Bicalutamide 50 Mg Tablet) 50 mg PO DAILY REPLACED BY [facility] Last Admin: 01/07/23 08:00 Dose: 50 mg Documented By: RONALDO Docusate Sodium (Docusate Sodium 100 Mg Capsule) 100 mg PO DAILY PRN PRN Reason: Constipation Last Admin: 01/05/23 08:05 Dose: 100 mg Documented By: RIOSCJOSESITO Finasteride (Finasteride 5 Mg Tablet) 5 mg PO DAILY REPLACED BY [facility] Last Admin: 01/07/23 08:00 Dose: 5 mg Documented By: RONALDO Glucose (Glucose Gel 15 Gm Gel..Gram.) 15 gm PO Q15M PRN; Protocol PRN Reason: per Hypoglycemia Standing Ord. Dextrose (D10) 250 mls @ 750 mls/hr IV Q15M PRN; Protocol PRN Reason: per Hypoglycemia Standing Ord. Insulin Human Lispro (Insulin Lispro 100 Unit/Ml 3 Ml Vial) 0 unit SUBCUT QIDACHS REPLACED BY [facility]; Protocol Last Admin: 01/07/23 07:58 Dose: 2 unit Documented By: RONALDO Metoprolol Tartrate (Metoprolol Tartrate 25 Mg Tablet) 25 mg PO BID REPLACED BY [facility]; Protocol Last Admin: 01/07/23 07:59 Dose: 25 mg Documented By: RONALDO Olanzapine (Olanzapine 10 Mg Vial) 5 mg IM DAILY PRN PRN Reason: agitation Ondansetron HCl (Ondansetron Hcl 4 Mg/2 Ml Vial) 4 mg IVPUSH Q8H PRN PRN Reason: Nausea and Vomiting Oxycodone HCl (Oxycodone Hcl Immed Release 5 Mg Tablet) 5 mg PO Q4H PRN PRN Reason: Pain, Severe (Pain Scale 7-10) Last Admin: 01/06/23 08:35 Dose: 5 mg Documented By: RONALDO Pharmacy Consult (Consult Rx Perform Med Rec) 1 each MISCELLANE ONCE PRN PRN Reason: Consult order Pravastatin Sodium (Pravastatin Sodium 40 Mg Tablet) 40 mg PO BEDTIME REPLACED BY [facility] Last Admin: 01/06/23 21:29 Dose: 40 mg Documented By: PREETI Sodium Chloride (0.9 % Sodium Chloride Flush 3 Ml Syringe) 3 ml IVFLUSH QSHIFT REPLACED BY [facility] Last Admin: 01/07/23 07:59 Dose: 3 ml Documented By: RONALDO Tamsulosin HCl (Tamsulosin Hcl 0.4 Mg Capsule) 0.8 mg PO DAILY REPLACED BY [facility] Last Admin: 01/07/23 07:59 Dose: 0.8 mg Documented By: RONALDO Labs 01/04/23 05:31 01/07/23 05:25 Labs: Laboratory Results - last 24 hr 01/06/23 01/06/23 01/06/23 11:19 14:53 16:03 Anion Gap Estim Creat Clear Calc Estimated GFR POC Glucose 220 H 235 H Random Glucose Calcium Ur Random Sodium 54.0 Urine Creatinine 52.14 01/06/23 01/07/23 01/07/23 20:19 05:25 07:04 Anion Gap 14 Estim Creat Clear Calc 25.4 Estimated GFR 32 POC Glucose 172 H 187 H Random Glucose 201 H Calcium 8.9 Ur Random Sodium Urine Creatinine Assessment and Plan (1) BPH (benign prostatic hyperplasia): Status: Acute (2) Cognitive disorder: Status: Acute (3) ANTONELLA (acute kidney injury): Status: Acute (4) Atrial fibrillation with rapid ventricular response: Status: Acute Plan An 82M PMH paroxysmal afib on eliquis, DM, prostate ca, presented with weakness, antonella Paroxysmal afib with rvr better controlled continue eliquis On metoprolol, 25 mg bid Cognitive disorder 2/2 acute delerium vs chronic dementia +/- delerium psychiatry appreciated, currently patient lack capacity to make most medical decisions and unlikely to be able to live safely independently OT eval for MoCA and ACLS, to assess his level of cognitive impairment and need for supportive services for independent living Outpatient dementia eval by neuro referral 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 Quality Stroke Does the patient have a stroke diagnosis?: No VTE Prior VTE?: No VTE Risk Level:: Medical - moderate - high VTE Device Contraindication: Treatment Not Indicated VTE Drug Contraindication: N/A - Med Ordered
[2023-01-07 11:22] LABS: Glucose, Whole Blood 256 mg/dL (60-115)
[2023-01-07 12:00] VITALS: BP 132/65; PULSE 98; RESP 18; O2SAT 99
--- NOTE | 2023-01-07 12:25 | MHC.CLN ---
F/U PT WITH INCREASED NUTRITION RISK R/T PRESSURE INJURY SEE FULL CLINICAL NUTRITION ASSESSMENT DATED 01/03/23 PO INTAKE 100% DIET RX: 2000DM-APPROPRIATE RECOMMEND SWITCHING SUPPLEMENT TO ENSURE TID TO PROMOTE WOUND HEALING PROVIDES 1050KCALS, 60G PROTEIN WITH 100% ACCEPTANCE CONTINUE TO MONITOR PO INTAKE
--- NOTE | 2023-01-07 14:17 | MHC.CM.PN ---
Addendum entered by Mary Magana 01/07/23 15:09: Discharge held due to plan for procedure. The facility has been notified of the change in discharge date. Original Note: Patient has received a bed offer from [facility]. Pt and family accept the bed. The facility is very close to their home. PT has been asked to re-eval the patient for STR. Family states that the patient was managing fine living home alone until 2 weeks ago. The patient has a UTI. The patient is not at his baseline due to the infection. Future planning was discussed. The patient does not have a or children. He will eventually need LTC. [facility]. A financial consult has been referred. Mamta Azevedo has come in to speak with patient and family re [facility] application. [facility] via BLS.
[2023-01-07 15:35] VITALS: BP 124/58; PULSE 89; RESP 14; TEMP 36.8; O2SAT 97
[2023-01-07 16:06] LABS: Glucose, Whole Blood 304 mg/dL (60-115)
--- NOTE | 2023-01-07 16:47 | PM.PNNEP ---
Subjective Subjective Date of Service: 01/07/23 Interval history: Seen and evaluated this morning Denies any fever or chills Cr mildly better Oates catheter inplace No other overnight events Physical Exam Vital Signs: Vital Signs: Last Vital Signs Temp 98.3 F 01/07/23 15:35 Pulse 89 01/07/23 15:35 Resp 14 01/07/23 15:35 BP 124/58 L 01/07/23 15:35 Pulse Ox 97 01/07/23 15:35 O2 Del Method Room Air 01/07/23 15:35 BMI result Body Mass Index 24.2 Const: Other: General: AO X 2, no acute distress Resp: CTA bilateral CVS: S1,S2,irregular irregular GI: +BS, NT, no distention Skin: No rash, Oates in place Neuro: motor grossly intact Psych: appropriate affect Objective Data Labs 01/04/23 05:31 01/07/23 05:25 Labs: Laboratory Results - last 24 hr 01/06/23 01/07/23 01/07/23 20:19 05:25 07:04 Sodium 138 Potassium 3.5 Chloride 106 Carbon Dioxide 22 Anion Gap 14 BUN 46 H Creatinine 2.01 H Estim Creat Clear Calc 25.4 Estimated GFR 32 POC Glucose 172 H 187 H Random Glucose 201 H Calcium 8.9 01/07/23 01/07/23 11:09 16:01 Sodium Potassium Chloride Carbon Dioxide Anion Gap BUN Creatinine Estim Creat Clear Calc Estimated GFR POC Glucose 256 H 304 H Random Glucose Calcium Microbiology Microbiology Results: Microbiology 12/31/22 09:56 Blood - Venous Blood Culture - Final No growth after 5 days. 12/31/22 09:56 Blood - Venous Blood Culture - Final No growth after 5 days. 12/31/22 Unknown Urine clean catch - Urine gonzalez top Urine Culture - Final No growth. Procedures Date of Service Date of Service: 01/07/23 Assessment & Plan Assessment and plan (1) ANTONELLA (acute kidney injury): Status: Acute Plan Acute kidney injury most likely due to bladder outlet obstruction/obstructive uropathy. Mild metabolic acidosis due to ANTONELLA. Mild anemia. Recommendations c/w Oates APpreciate Urology recs Reassess renal U/S to reassure that hydro has improved s/p oates monitor for hypercalcemia of malignancy. c/w metop / amlodipine c/w flomax / finasteride Time Spent With Patient Time: Total time managing care of this patient today ____ minutes. Progress Note: Quality Stroke Does the patient have a stroke diagnosis?: No
[2023-01-07 19:41] VITALS: BP 140/82; PULSE 96; RESP 14; TEMP 36.3; O2SAT 96
[2023-01-07 20:10] LABS: Glucose, Whole Blood 306 mg/dL (60-115)
[2023-01-07] MEDS: oxyCODONE HCl Immed Release 5 MG TABLET PO (20:20)
[2023-01-07] MEDS: Pravastatin Sodium 40 MG TABLET PO (20:20)
[2023-01-07 23:44] VITALS: BP 140/66; PULSE 85; RESP 16; TEMP 36.8; O2SAT 94
[2023-01-08 03:13] VITALS: BP 135/63; PULSE 99; RESP 16; TEMP 36.4; O2SAT 91
[2023-01-08 05:59] LABS: Anion Gap 15 (12-20); Blood Urea Nitrogen 39 mg/dL (9-16); Calcium 9.1 mg/dL (8.4-10.2); Carbon Dioxide 22 mmol/L (22-29); Chloride 106 mmol/L (96-108); Creatinine Clr Calc Pharmacy 35.8; Estimated Glomerular Filt Rate 48; Glucose Random 190 mg/dL (60-115); Potassium 3.7 mmol/L (3.3-5.1); Sodium 139 mmol/L (135-145)
[2023-01-08 07:15] VITALS: BP 142/67; PULSE 78; RESP 20; TEMP 36.4; O2SAT 93
[2023-01-08 07:30] LABS: Glucose, Whole Blood 190 mg/dL (60-115)
[2023-01-08] MEDS: Insulin Lispro 100 UNIT/ML 3 ML VIAL SUBCUT ×3 (07:53→21:20)
[2023-01-08] MEDS: amLODIPine Besylate 5 MG TABLET PO (07:53)
[2023-01-08] MEDS: Bicalutamide 50 MG TABLET PO ×3 (07:53→20:12)
[2023-01-08] MEDS: Metoprolol Tartrate 25 MG TABLET PO ×2 (07:53→20:12)
[2023-01-08] MEDS: Finasteride 5 MG TABLET PO (07:54)
[2023-01-08] MEDS: Tamsulosin HCL 0.4 MG CAPSULE 0.8 MG PO (07:54)
[2023-01-08] MEDS: Enoxaparin Sodium 80 MG/0.8 ML SYRINGE 70 MG SUBCUT (07:54)
[2023-01-08] MEDS: 0.9 % Sodium Chloride Flush 3 ML SYRINGE IVFLUSH ×3 (07:54→20:12)
--- NOTE | 2023-01-08 10:30 | HO.PM.IMPN ---
Subjective Subjective Date of Service: 01/08/23 Interval History: Seen and evaluated this morning Denies any fever or chills Cr improved to baseline Mclaughlin catheter in-place No other overnight events Review of Systems Review of Systems: Yes all other systems are reviewed and are negative Physical Exam Vital Signs: Vital Signs: Last Vital Signs Temp 97.6 F 01/08/23 07:15 Pulse 78 01/08/23 07:15 Resp 20 01/08/23 07:15 BP 142/67 H 01/08/23 07:15 Pulse Ox 93 01/08/23 07:15 O2 Del Method Room Air 01/08/23 07:15 BMI result Body Mass Index 24.2 Const: Other: General: AO X 2, no acute distress Resp: CTA bilateral CVS: S1,S2,irregular irregular GI: +BS, NT, no distention Skin: No rash, Mclaughlin in place Neuro: motor grossly intact Psych: appropriate affect Objective Data Active Medications Acetaminophen (Acetaminophen 325 Mg Tablet) 650 mg PO Q6H PRN PRN Reason: Pain, Mild (Pain Scale 1-3) Last Admin: 12/31/22 20:45 Dose: 650 mg Documented By: BENIGNO Amlodipine Besylate (Amlodipine Besylate 5 Mg Tablet) 5 mg PO DAILY [facility]; Protocol Last Admin: 01/08/23 07:53 Dose: 5 mg Documented By: REZA Apixaban (Apixaban 2.5 Mg Tablet) 2.5 mg PO BID [facility] Last Admin: 01/07/23 08:00 Dose: 2.5 mg Documented By: RONALDO Bicalutamide (Bicalutamide 50 Mg Tablet) 50 mg PO DAILY [facility] Last Admin: 01/08/23 07:53 Dose: 50 mg Documented By: REZA Docusate Sodium (Docusate Sodium 100 Mg Capsule) 100 mg PO DAILY PRN PRN Reason: Constipation Last Admin: 01/05/23 08:05 Dose: 100 mg Documented By: RIOSCJOSESITO Enoxaparin Sodium (Enoxaparin Sodium 80 Mg/0.8 Ml Syringe) 70 mg SUBCUT Q24H [facility] Stop: 01/09/23 06:00 Last Admin: 01/08/23 07:54 Dose: 70 mg Documented By: REZA Finasteride (Finasteride 5 Mg Tablet) 5 mg PO DAILY [facility] Last Admin: 01/08/23 07:54 Dose: 5 mg Documented By: REZA Glucose (Glucose Gel 15 Gm Gel..Gram.) 15 gm PO Q15M PRN; Protocol PRN Reason: per Hypoglycemia Standing Ord. Dextrose (D10) 250 mls @ 750 mls/hr IV Q15M PRN; Protocol PRN Reason: per Hypoglycemia Standing Ord. Insulin Human Lispro (Insulin Lispro 100 Unit/Ml 3 Ml Vial) 0 unit SUBCUT QIDACHS [facility]; Protocol Last Admin: 01/08/23 07:53 Dose: 2 unit Documented By: REZA Metoprolol Tartrate (Metoprolol Tartrate 25 Mg Tablet) 25 mg PO BID [facility]; Protocol Last Admin: 01/08/23 07:53 Dose: 25 mg Documented By: REZA Olanzapine (Olanzapine 10 Mg Vial) 5 mg IM DAILY PRN PRN Reason: agitation Ondansetron HCl (Ondansetron Hcl 4 Mg/2 Ml Vial) 4 mg IVPUSH Q8H PRN PRN Reason: Nausea and Vomiting Oxycodone HCl (Oxycodone Hcl Immed Release 5 Mg Tablet) 5 mg PO Q4H PRN PRN Reason: Pain, Severe (Pain Scale 7-10) Last Admin: 01/07/23 20:20 Dose: 5 mg Documented By: KUMAR Pharmacy Consult (Consult Rx Perform Med Rec) 1 each MISCELLANE ONCE PRN PRN Reason: Consult order Pravastatin Sodium (Pravastatin Sodium 40 Mg Tablet) 40 mg PO BEDTIME [facility] Last Admin: 01/07/23 20:20 Dose: 40 mg Documented By: KUMAR Sodium Chloride (0.9 % Sodium Chloride Flush 3 Ml Syringe) [facility] Last Admin: 01/08/23 07:54 Dose: 3 ml Documented By: REZA Tamsulosin HCl (Tamsulosin Hcl 0.4 Mg Capsule) 0.8 mg PO DAILY [facility] Last Admin: 01/08/23 07:54 Dose: 0.8 mg Documented By: REZA Labs 01/04/23 05:31 01/08/23 05:13 Labs: Laboratory Results - last 24 hr 01/07/23 01/07/23 01/07/23 11:09 16:01 20:03 Anion Gap Estim Creat Clear Calc Estimated GFR POC Glucose 256 H 304 H 306 H Random Glucose Calcium 01/08/23 01/08/23 05:13 07:20 Anion Gap 15 Estim Creat Clear Calc 35.8 Estimated GFR 48 POC Glucose 190 H Random Glucose 190 H Calcium 9.1 Assessment and Plan (1) BPH (benign prostatic hyperplasia): Status: Acute (2) Cognitive disorder: Status: Acute (3) ANTONELLA (acute kidney injury): Status: Acute (4) Prostate cancer: Status: Acute (5) Metastasis to bone: Status: Acute (6) Pain due to malignant neoplasm metastatic to bone: Status: Acute (7) Atrial fibrillation with rapid ventricular response: Status: Acute Plan An 82M PMH paroxysmal afib on eliquis, DM, prostate ca, presented with weakness, antonella 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 with back pain Elevated PSA to 277 Bone scan reported T7 involvement Urology to do biopsy on Tuesday, eval appreciated, start bicalutamide , consider Hormonal treatment based on biopsy result get Oncology consult Oxycodone prn for pain Paroxysmal afib with rvr better controlled continue eliquis On metoprolol, 25 mg bid Cognitive disorder 2/2 acute delerium vs chronic dementia +/- delerium Could be related to metastatic cancer to brain, will be difficult to get an MRI on him given his unwillingness to follow commands, will discuss best options with oncology and HCP psychiatry appreciated, currently patient lack capacity to make most medical decisions and unlikely to be able to live safely independently OT eval for MoCA and ACLS, to assess his level of cognitive impairment and need for supportive services for independent living Outpatient dementia eval by neuro referral 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 BPH Cr back to baseline after Mclaughlin placement renal us with mild bilateral hydro Would need prostate biopsies in order to start GnRH therapy nephro eval avoid nephrotoxic meds physical deconditioning refusing PT, will try to do eval again today dm insulin uti completed ceftin weakness refusing pt eval prostate ca gu eval dvt prophylaxis - eliquis full code reason for continued hospitalization: Pending oncology eval, needed biopsy and possible further testing for staging of cancer before discharge to SNF Time Spent With Patient Time: Total time managing care of this patient today ____ minutes. Quality Stroke Does the patient have a stroke diagnosis?: No VTE Prior VTE?: No VTE Risk Level:: Medical - moderate - high VTE Device Contraindication: Treatment Not Indicated VTE Drug Contraindication: N/A - Med Ordered
--- NOTE | 2023-01-08 11:19 | PC.NURSE ---
Addendum entered by Kimberly Saini RN 01/08/23 11:27: made aware. Original Note: VENEER SANDER made this nurse aware Pt refusing lunch time point of care and 12pm vitals.
--- NOTE | 2023-01-08 13:17 | PM.PNNEP ---
Subjective Subjective Date of Service: 01/08/23 Interval history: Seen and evaluated this morning Denies any fever or chills Cr improved to baseline Oates catheter in-place No other overnight events Physical Exam Vital Signs: Vital Signs: Last Vital Signs Temp 97.6 F 01/08/23 07:15 Pulse 78 01/08/23 07:15 Resp 20 01/08/23 07:15 BP 142/67 H 01/08/23 07:15 Pulse Ox 93 01/08/23 07:15 O2 Del Method Room Air 01/08/23 07:15 BMI result Body Mass Index 24.2 Const: Other: General: AO X 2, no acute distress Resp: CTA bilateral CVS: S1,S2,irregular irregular GI: +BS, NT, no distention Skin: No rash, Oates in place Neuro: motor grossly intact Psych: appropriate affect Objective Data Labs 01/04/23 05:31 01/08/23 05:13 Labs: Laboratory Results - last 24 hr 01/07/23 01/07/23 01/08/23 16:01 20:03 05:13 Sodium 139 Potassium 3.7 Chloride 106 Carbon Dioxide 22 Anion Gap 15 BUN 39 H Creatinine 1.43 H Estim Creat Clear Calc 35.8 Estimated GFR 48 POC Glucose 304 H 306 H Random Glucose 190 H Calcium 9.1 01/08/23 07:20 Sodium Potassium Chloride Carbon Dioxide Anion Gap BUN Creatinine Estim Creat Clear Calc Estimated GFR POC Glucose 190 H Random Glucose Calcium Microbiology Microbiology Results: Microbiology 12/31/22 09:56 Blood - Venous Blood Culture - Final No growth after 5 days. 12/31/22 09:56 Blood - Venous Blood Culture - Final No growth after 5 days. 12/31/22 Unknown Urine clean catch - Urine gonzalez top Urine Culture - Final No growth. Procedures Date of Service Date of Service: 01/08/23 Assessment & Plan Assessment and plan (1) ANTONELLA (acute kidney injury): Status: Acute Plan Acute kidney injury most likely due to bladder outlet obstruction/obstructive uropathy. Mild metabolic acidosis due to ANTONELLA. Mild anemia. Overall improved s/p Oates placement Recommendations c/w Oates APpreciate Urology recs Reassess renal U/S to reassure that hydro has improved s/p oates monitor for hypercalcemia of malignancy. c/w metop / amlodipine c/w flomax / finasteride Time Spent With Patient Time: Total time managing care of this patient today ____ minutes. Progress Note: Quality Stroke Does the patient have a stroke diagnosis?: No
[2023-01-08 15:15] VITALS: BP 116/69; PULSE 83; RESP 18; TEMP 37.1; O2SAT 95
[2023-01-08 16:16] LABS: Glucose, Whole Blood 302 mg/dL (60-115)
[2023-01-08 19:37] VITALS: BP 135/67; PULSE 83; RESP 18; TEMP 36.9; O2SAT 96
[2023-01-08] MEDS: oxyCODONE HCl Immed Release 5 MG TABLET PO (20:11)
[2023-01-08] MEDS: Pravastatin Sodium 40 MG TABLET PO (20:12)
[2023-01-08 20:30] LABS: Glucose, Whole Blood 245 mg/dL (60-115)
[2023-01-08 23:25] VITALS: BP 130/70; PULSE 82; RESP 18; TEMP 36.7; O2SAT 96
[2023-01-09] VITALS (8 sets, daily range): BP systolic 103–143; BP diastolic 60–68; PULSE 78–87; RESP 16–18; TEMP 36.4–37.2; O2SAT 94–100
[2023-01-09 07:33] LABS: Glucose, Whole Blood 222 mg/dL (60-115)
[2023-01-09] MEDS: Finasteride 5 MG TABLET PO (08:41)
[2023-01-09] MEDS: Bicalutamide 50 MG TABLET PO ×3 (08:41→21:40)
[2023-01-09] MEDS: amLODIPine Besylate 5 MG TABLET PO (08:41)
[2023-01-09] MEDS: Metoprolol Tartrate 25 MG TABLET PO ×2 (08:42→21:40)
[2023-01-09] MEDS: metFORMIN HCl ER 500 MG TAB.ER.24H 2000 MG PO (08:42)
[2023-01-09] MEDS: Tamsulosin HCL 0.4 MG CAPSULE 0.8 MG PO (08:42)
[2023-01-09] MEDS: Insulin Lispro 100 UNIT/ML 3 ML VIAL SUBCUT ×4 (08:42→21:40)
[2023-01-09] MEDS: 0.9 % Sodium Chloride Flush 3 ML SYRINGE IVFLUSH ×3 (08:43→23:46)
[2023-01-09] MEDS: oxyCODONE HCl Immed Release 5 MG TABLET PO (08:50)
--- NOTE | 2023-01-09 09:59 | P.PNIM_ITS ---
Subjective Subjective Date of Service: 01/09/23 Interval History: Seen and evaluated this morning no fever or chills Cr improved to baseline Mclaughlin catheter in-place No other overnight events Review of Systems Review of Systems: Yes all other systems are reviewed and are negative Physical Exam Vital Signs: Vital Signs: Last Vital Signs Temp 99.0 F 01/09/23 08:00 Pulse 83 01/09/23 08:00 Resp 16 01/09/23 08:00 BP 143/68 H 01/09/23 08:00 Pulse Ox 94 01/09/23 08:00 O2 Del Method Room Air 01/09/23 07:13 BMI result Body Mass Index 24.2 Const: Other: General: AO X 2, no acute distress Resp: CTA bilateral CVS: S1,S2,irregular irregular GI: +BS, NT, no distention Skin: No rash, Mclaughlin in place Neuro: motor grossly intact Psych: appropriate affect Objective Data Active Medications Acetaminophen (Acetaminophen 325 Mg Tablet) 650 mg PO Q6H PRN PRN Reason: Pain, Mild (Pain Scale 1-3) Last Admin: 12/31/22 20:45 Dose: 650 mg Documented By: BENIGNO Amlodipine Besylate (Amlodipine Besylate 5 Mg Tablet) 5 mg PO DAILY [facility]; Protocol Last Admin: 01/09/23 08:41 Dose: 5 mg Documented By: LEIGH Apixaban (Apixaban 2.5 Mg Tablet) 2.5 mg PO BID [facility] Last Admin: 01/07/23 08:00 Dose: 2.5 mg Documented By: RONALDO Bicalutamide (Bicalutamide 50 Mg Tablet) 50 mg PO TID [facility] Last Admin: 01/09/23 08:41 Dose: 50 mg Documented By: LEIGH Docusate Sodium (Docusate Sodium 100 Mg Capsule) 100 mg PO DAILY PRN PRN Reason: Constipation Last Admin: 01/05/23 08:05 Dose: 100 mg Documented By: RIOSCJOSESITO Finasteride (Finasteride 5 Mg Tablet) 5 mg PO DAILY [facility] Last Admin: 01/09/23 08:41 Dose: 5 mg Documented By: LEIGH Glucose (Glucose Gel 15 Gm Gel..Gram.) 15 gm PO Q15M PRN; Protocol PRN Reason: per Hypoglycemia Standing Ord. Dextrose (D10) 250 mls @ 750 mls/hr IV Q15M PRN; Protocol PRN Reason: per Hypoglycemia Standing Ord. Insulin Human Lispro (Insulin Lispro 100 Unit/Ml 3 Ml Vial) 0 unit SUBCUT QIDACHS [facility]; Protocol Last Admin: 01/09/23 08:42 Dose: 4 unit Documented By: LEIGH Metformin HCl (Metformin Hcl Er 500 Mg Tab.Er.24h) 2,000 mg PO DAILY [facility] Last Admin: 01/09/23 08:42 Dose: 2,000 mg Documented By: LEIGH Metoprolol Tartrate (Metoprolol Tartrate 25 Mg Tablet) 25 mg PO BID [facility]; Protocol Last Admin: 01/09/23 08:42 Dose: 25 mg Documented By: LEIGH Olanzapine (Olanzapine 10 Mg Vial) 5 mg IM DAILY PRN PRN Reason: agitation Ondansetron HCl (Ondansetron Hcl 4 Mg/2 Ml Vial) 4 mg IVPUSH Q8H PRN PRN Reason: Nausea and Vomiting Oxycodone HCl (Oxycodone Hcl Immed Release 5 Mg Tablet) 5 mg PO Q4H PRN PRN Reason: Pain, Severe (Pain Scale 7-10) Last Admin: 01/09/23 08:50 Dose: 5 mg Documented By: LEIGH Pharmacy Consult (Consult Rx Perform Med Rec) 1 each MISCELLANE ONCE PRN PRN Reason: Consult order Pravastatin Sodium (Pravastatin Sodium 40 Mg Tablet) 40 mg PO BEDTIME [facility] Last Admin: 01/08/23 20:12 Dose: 40 mg Documented By: LYSMitzi Sodium Chloride (0.9 % Sodium Chloride Flush 3 Ml Syringe) 3 ml IVFLUSH QSHIFT [facility] Last Admin: 01/09/23 08:43 Dose: 3 ml Documented By: LEIGH Tamsulosin HCl (Tamsulosin Hcl 0.4 Mg Capsule) 0.8 mg PO DAILY [facility] Last Admin: 01/09/23 08:42 Dose: 0.8 mg Documented By: LEIGH Labs 01/04/23 05:31 01/08/23 05:13 Labs: Laboratory Results - last 24 hr 01/08/23 01/08/23 01/09/23 15:59 20:19 07:15 POC Glucose 302 H 245 H 222 H Assessment and Plan (1) Pain due to malignant neoplasm metastatic to bone: Status: Acute (2) Metastasis to bone: Status: Acute (3) Atrial fibrillation with rapid ventricular response: Status: Acute (4) ANTONELLA (acute kidney injury): Status: Acute (5) Cognitive disorder: Status: Acute Plan An 82M PMH paroxysmal afib on eliquis, DM, prostate ca, presented with weakness, antonella 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 with back pain Elevated PSA to 277 Bone scan reported T7 involvement Urology to do biopsy on Tuesday, eval appreciated, start bicalutamide , consider Hormonal treatment based on biopsy result Pending Oncology consult Oxycodone prn for pain Paroxysmal afib with rvr better controlled continue eliquis On metoprolol, 25 mg bid Cognitive disorder 2/2 acute delerium vs chronic dementia +/- delerium Could be related to metastatic cancer to brain, will be difficult to get an MRI on him given his unwillingness to follow commands, will discuss best options with oncology and HCP psychiatry appreciated, currently patient lack capacity to make most medical decisions and unlikely to be able to live safely independently OT eval for MoCA and ACLS, to assess his level of cognitive impairment and need for supportive services for independent living Outpatient dementia eval by neuro referral 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 BPH Cr back to baseline after Mclaughlin placement renal us with mild bilateral hydro Would need prostate biopsies in order to start GnRH therapy nephro eval avoid nephrotoxic meds physical deconditioning refusing PT, will try to do eval again today dm insulin uti completed ceftin weakness refusing pt eval prostate ca gu eval dvt prophylaxis - eliquis full code reason for continued hospitalization: Pending oncology eval, needed biopsy and possible further testing for staging of cancer before discharge to SNF Time Spent With Patient Time: Total time managing care of this patient today ____ minutes. Quality Stroke Does the patient have a stroke diagnosis?: No VTE Prior VTE?: No VTE Risk Level:: Medical - moderate - high VTE Device Contraindication: Treatment Not Indicated VTE Drug Contraindication: N/A - Med Ordered
[2023-01-09 11:09] LABS: Glucose, Whole Blood 244 mg/dL (60-115)
--- NOTE | 2023-01-09 11:15 | PM.PNNEP ---
Subjective Subjective Date of Service: 01/09/23 Interval history: Seen and evaluated this morning no fever or chills Cr improved to baseline Oates catheter in-place No other overnight events Physical Exam Vital Signs: Vital Signs: Last Vital Signs Temp 99.0 F 01/09/23 08:00 Pulse 83 01/09/23 08:00 Resp 16 01/09/23 08:00 BP 143/68 H 01/09/23 08:00 Pulse Ox 94 01/09/23 08:00 O2 Del Method Room Air 01/09/23 07:13 BMI result Body Mass Index 24.2 Const: Other: General: AO X 2, no acute distress Resp: CTA bilateral CVS: S1,S2,irregular irregular GI: +BS, NT, no distention Skin: No rash, Oates in place Neuro: motor grossly intact Psych: appropriate affect Objective Data Labs 01/04/23 05:31 01/08/23 05:13 Labs: Laboratory Results - last 24 hr 01/08/23 01/08/23 01/09/23 15:59 20:19 07:15 POC Glucose 302 H 245 H 222 H 01/09/23 11:03 POC Glucose 244 H Microbiology Microbiology Results: Microbiology 12/31/22 09:56 Blood - Venous Blood Culture - Final No growth after 5 days. 12/31/22 09:56 Blood - Venous Blood Culture - Final No growth after 5 days. 12/31/22 Unknown Urine clean catch - Urine gonzalez top Urine Culture - Final No growth. Procedures Date of Service Date of Service: 01/09/23 Assessment & Plan Assessment and plan (1) ANTONELLA (acute kidney injury): Status: Acute Plan Acute kidney injury most likely due to bladder outlet obstruction/obstructive uropathy. Mild metabolic acidosis due to ANTONELLA. Mild anemia. Overall improved s/p Oates placement Recommendations c/w Oates APpreciate Urology recs Reassess renal U/S to reassure that hydro has improved s/p oates (not been done since 01/02/23) monitor for hypercalcemia of malignancy. c/w metop / amlodipine c/w flomax / finasteride Time Spent With Patient Time: Total time managing care of this patient today ____ minutes. Progress Note: Quality Stroke Does the patient have a stroke diagnosis?: No
--- NOTE | 2023-01-09 13:13 | MHC.CM.PN ---
CM MET WITH PTS BROTHER AND [id number] TO DISCUSS DC PLANNING AT THEIR REQUEST PTS [id number] REPORTS PT LIVES ALONE THEY ASKED WHERE HE MAY GO FOR STR HOWEVER PT HAS REFUSED TO PARTICIPATE IN THERAPIES. FAMILY AWARE IF THIS CONTINUES HE WILL NOT BE ABLE TO GO TO STR AND WILL REQUIRE LTC PLACEMENT PER FAMILY, THE [employer] WAS INITIATED WITH THE PREVIOUS CM AND THEY WILL GO TO THE BANK ON TUESDAY FOR PTS BANK STATEMENTS THEY REPORT THE PT HAS ONLY 5K IN THE BANK AND NO OTHER ASSETS. THEY ARE AWARE REFERRALS ARE OUT PT WILL HAVE A BIOPSY TOMORROW FAMILY WILL ATTEMPT TO CONVINCE PT TO PARTICIPATE WITH THERAPIES/TREATMENTS
[2023-01-09 16:03] LABS: Glucose, Whole Blood 178 mg/dL (60-115)
[2023-01-09 21:34] LABS: Glucose, Whole Blood 250 mg/dL (60-115)
[2023-01-09] MEDS: Pravastatin Sodium 40 MG TABLET PO (21:40)
[2023-01-10] VITALS (9 sets, daily range): BP systolic 103–151; BP diastolic 61–79; PULSE 66–86; RESP 15–20; TEMP 36.1–37.1; O2SAT 95–100
[2023-01-10 06:14] LABS: Anion Gap 16 (12-20); Blood Urea Nitrogen 28 mg/dL (9-16); Calcium 8.7 mg/dL (8.4-10.2); Carbon Dioxide 25 mmol/L (22-29); Chloride 103 mmol/L (96-108); Creatinine Clr Calc Pharmacy 47.8; Estimated Glomerular Filt Rate > 60; Glucose Random 172 mg/dL (60-115); Potassium 3.6 mmol/L (3.3-5.1); Sodium 140 mmol/L (135-145)
[2023-01-10 07:40] LABS: Glucose, Whole Blood 175 mg/dL (60-115)
--- NOTE | 2023-01-10 07:50 | P.CNHO_ITS ---
Subjective - Subjective Chief complaint: Back pain Patient: new to practice Consult date: 01/10/23 Primary Care Provider: PABLO Manuel HPI - Consult Narrative Reason for consult: Prostate cancer Narrative: Donte Hernandez is a 82 year old male with past medical history significant for atrial fibrillation, cmw-lmaclfa-eromqmzjo diabetes mellitus who presented to emergency department with generalized weakness and change in cognition. He started to experience low back pain and was unable to stand or walk around. He called his brother who called the ambulance and was brought to [facility] [place]. Patient reports feeling weak with poor appetite. He is somewhat confused but is able to answer most questions. He does admit to frequency and urgency as well as weight loss. Workup in the emergency department revealed acute renal insufficiency and atrial fibrillation with tachycardia. CT scan showed heterogenous enlargement of prostate gland concerning for malignancy. CT?of head found no acute intracranial pathology, but found chronic global volume loss and microangiopathy, and chronic lacunar infarct in the right side of the cerebellum. PSA was elevated, 273.74 NG/mL. Bone scan revealed activity in ribs/thoracic cage and L1 spine suspicious for malignancy/metastasis. He lives alone at home. He says he does not have a PCP. Review of Systems - Constitutional Reports as per HPI - Cardiovascular Reports no additional cardiovascular complaints - Respiratory Reports no additional respiratory complaints - Gastrointestinal Reports no additional gastrointestinal complaints - Neurologic Denies syncope [facility] Medical History: Medical History (Last Updated 01/10/23 @ 08:00 by Alondra Rendon MD) Atrial fibrillation Diabetes mellitus Osteomyelitis Prostate cancer Social History: Social History (Last Reviewed 12/31/22 @ 17:52 by PABLO Angel) Living Situation History: Household Members: None Housing: House Do you presently have visiting nurse or other home services: No Alcohol History Details: 1. How often do you have a drink containing alcohol?: a. Never AUDIT-C Alcohol total score: 0 Currently Displaying Signs/Symptoms of Alcohol Withdrawal: No Tobacco History: Patient Tobacco Use Status: Former Tobacco user Smoked in Last 30 Days: Yes Substance Use History: Use of substances other than those prescribed or required for medical reasons : No Currently Displaying Signs/Symptoms of Drug Intoxication Withdrawal: No Any prior treatment program specific to substance use: No Domestic Abuse History: Have you been hit, kicked, punched, or otherwise hurt by someone within the past year? If so, by whom?: No Do you feel safe in your current relationship?: Yes Is there a partner from a previous relationship who is making you feel unsafe now?: No Are you made to feel afraid or neglected: No Advance Directives: Advance Directives: No Advance Directives Information Provided: Advance Directives Information Provided comment: Declined Homicidal Assessment: Do you have thoughts of harming others: None Do you have a plan to hurt others: No Plan Nutrition Assessment: Recently lost weight without trying: Unsure How much weight loss: Unsure Eating poorly because of decreased appetite: Yes Nutrition screen score: 5 Nutrition Risks: Dental problems Nutrition Risks: Poor intake 0-25% >4 days Poor oral hygiene: No Occupation Assessmet: service: No Current occupational status: retired Home Medications and Allergies Current Medications: Current Medications Acetaminophen (Acetaminophen 325 Mg Tablet) 650 mg PO Q6H PRN PRN Reason: Pain, Mild (Pain Scale 1-3) Last Admin: 12/31/22 20:45 Dose: 650 mg Amlodipine Besylate (Amlodipine Besylate 5 Mg Tablet) 5 mg PO DAILY [facility]; Protocol Last Admin: 01/09/23 08:41 Dose: 5 mg Apixaban (Apixaban 2.5 Mg Tablet) 2.5 mg PO BID [facility] Last Admin: 01/07/23 08:00 Dose: 2.5 mg Bicalutamide (Bicalutamide 50 Mg Tablet) 50 mg PO TID [facility] Last Admin: 01/09/23 21:40 Dose: 50 mg Docusate Sodium (Docusate Sodium 100 Mg Capsule) 100 mg PO DAILY PRN PRN Reason: Constipation Last Admin: 01/05/23 08:05 Dose: 100 mg Finasteride (Finasteride 5 Mg Tablet) 5 mg PO DAILY [facility] Last Admin: 01/09/23 08:41 Dose: 5 mg Glucose (Glucose Gel 15 Gm Gel..Gram.) 15 gm PO Q15M PRN; Protocol PRN Reason: per Hypoglycemia Standing Ord. Dextrose (D10) 250 mls @ 750 mls/hr IV Q15M PRN; Protocol PRN Reason: per Hypoglycemia Standing Ord. Insulin Human Lispro (Insulin Lispro 100 Unit/Ml 3 Ml Vial) 0 unit SUBCUT QIDACHS [facility]; Protocol Last Admin: 01/10/23 07:43 Dose: Not Given Metformin HCl (Metformin Hcl Er 500 Mg Tab.Er.24h) 2,000 mg PO DAILY [facility] Last Admin: 01/09/23 08:42 Dose: 2,000 mg Metoprolol Tartrate (Metoprolol Tartrate 25 Mg Tablet) 25 mg PO BID [facility]; Protocol Last Admin: 01/09/23 21:40 Dose: 25 mg Olanzapine (Olanzapine 10 Mg Vial) 5 mg IM DAILY PRN PRN Reason: agitation Ondansetron HCl (Ondansetron Hcl 4 Mg/2 Ml Vial) 4 mg IVPUSH Q8H PRN PRN Reason: Nausea and Vomiting Oxycodone HCl (Oxycodone Hcl Immed Release 5 Mg Tablet) 5 mg PO Q4H PRN PRN Reason: Pain, Severe (Pain Scale 7-10) Last Admin: 01/09/23 08:50 Dose: 5 mg Pharmacy Consult (Consult Rx Perform Med Rec) 1 each MISCELLANE ONCE PRN PRN Reason: Consult order Pravastatin Sodium (Pravastatin Sodium 40 Mg Tablet) 40 mg PO BEDTIME [facility] Last Admin: 01/09/23 21:40 Dose: 40 mg Sodium Chloride (0.9 % Sodium Chloride Flush 3 Ml Syringe) 3 ml IVFLUSH QSHIFT [facility] Last Admin: 01/09/23 23:46 Dose: 3 ml Tamsulosin HCl (Tamsulosin Hcl 0.4 Mg Capsule) 0.8 mg PO DAILY [facility] Last Admin: 01/09/23 08:42 Dose: 0.8 mg Home Medications Medication Instructions Recorded Confirmed Type amlodipine 5 mg tablet 5 mg PO DAILY 12/31/22 12/31/22 History clopidogrel 75 mg tablet 75 mg PO DAILY 12/31/22 12/31/22 History lisinopril 40 mg tablet 40 mg PO DAILY 12/31/22 12/31/22 History metformin 500 mg tablet,extended 2,000 mg PO QAM 12/31/22 12/31/22 History release 24 hr oxycodone 5 mg tablet 5 mg PO Q8H PRN pain 12/31/22 12/31/22 History oxycodone-acetaminophen 5 mg-325 1 tab PO DAILY PRN pain 12/31/22 12/31/22 H istory mg tablet pravastatin 40 mg tablet 40 mg PO BEDTIME 12/31/22 12/31/22 History tamsulosin 0.4 mg capsule 0.4 mg PO DAILY 12/31/22 12/31/22 History Allergies Allergy/AdvReac Type Severity Reaction Status Date / Time No Known Allergies Allergy Mild NOT Verified 12/26/22 21:17 [No Known Allergies*] APPLICABLE Physical Exam Vital signs: Vital Signs Temp 97.0 F 01/10/23 07:09 Pulse 84 01/10/23 07:09 Resp 20 01/10/23 07:09 BP 136/63 01/10/23 07:09 Pulse Ox 97 01/10/23 07:09 O2 Del Method Room Air 01/10/23 07:09 Intake & Output 01/09/23 01/10/23 01/10/23 18:59 06:59 18:59 Intake Total 1040 / 1290 250 / 1290 Output Total 425 / 1325 900 / 1325 Balance 615 / -35 -650 / -35 Urine Output (Average ml/kg/hr) 0.54 1.13 Intake: Intake, Oral Amount 1040 / 1290 250 / 1290 Output: Output, Urine Amount (Catheter) 425 / 1325 900 / 1325 2-way Urethral 425 / 1325 900 / 1325 Other: Meal Refused No NPO No Yes: ice chips Breakfast % Eaten 75% Lunch % Eaten 80 Dinner % Eaten 100% Urine Bathroom Urine Color Yellow Yellow Weight 66.1 kg Narrative: Elderly male, resting comfortably. - Constitutional Present: no acute distress, average body habitus - Routine HEENT Exam Head: Present: normal inspection Eye: Present: EOMI, PERRL - Routine Neck Exam Present: supple. Absent: lymphadenopathy - Routine Respiratory Exam Present: CTAB. Absent: accessory muscle use - Routine Cardiovascular Exam Cardiovascular: Present: RRR, S1, S2 - Routine Abdominal Exam Present: soft - Routine Skin Exam Present: intact - Routine Neurological Exam Present: alert Hem/Onc Consult Result - Labs CBC & Chem 7: 01/04/23 05:31 01/10/23 05:19 Labs: BMP 01/10/23 05:19 Sodium 140 Potassium 3.6 Chloride 103 Carbon Dioxide 25 BUN 28 H Creatinine 1.07 Calcium 8.7 Assessment and Plan Patient Active problem list reviewed?: Yes (1) Prostate cancer Status: Acute Assessment and plan: 1. This is a pleasant 82-year-old male admitted for back pain, acute kidney injury and encephalopathy. He has evidence of metastatic prostate cancer. PSA is over 200 with enlarged prostate and abnormal bone scan. He has been started on Casodex by Urology, prostate biopsy is scheduled for 01/10/2023. PSMA PET scan would definitely be more sensitive and specific to assess metastasis including brain involvement. He will have to be started on treatment with GnRH therapy and second-generation hormone suppression/with or without chemotherapy, once diagnosis is confirmed. Patient appears to be slightly confused which apparently is not his baseline. This could be metabolic related to malignancy, dehydration and diabetes mellitus. Brain metastasis is not very common but possible with prostate canc er. Brain imaging with PSMA PET scan or brain MRI with contrast would be required for further assessment. I will follow with you, thank you for the consultation. - Time Spent With Patient Time Spent with Patient (in minutes): 25
[2023-01-10] MEDS: Bicalutamide 50 MG TABLET PO ×3 (09:56→21:00)
[2023-01-10] MEDS: metFORMIN HCl ER 500 MG TAB.ER.24H 2000 MG PO (09:56)
[2023-01-10] MEDS: Finasteride 5 MG TABLET PO (09:56)
[2023-01-10] MEDS: Tamsulosin HCL 0.4 MG CAPSULE 0.8 MG PO (09:56)
[2023-01-10] MEDS: amLODIPine Besylate 5 MG TABLET PO (09:56)
[2023-01-10] MEDS: Metoprolol Tartrate 25 MG TABLET PO ×2 (09:56→21:00)
[2023-01-10] MEDS: 0.9 % Sodium Chloride Flush 3 ML SYRINGE IVFLUSH ×3 (09:57→21:01)
[2023-01-10] MEDS: Acetaminophen 325 MG TABLET 650 MG PO ×2 (10:30→21:05)
[2023-01-10] MEDS: oxyCODONE HCl Immed Release 5 MG TABLET PO ×2 (10:31→21:05)
[2023-01-10 11:44] LABS: Glucose, Whole Blood 181 mg/dL (60-115)
--- NOTE | 2023-01-10 12:43 | MHC.CLN ---
F/U PT WITH INCREASED NUTRITION RISK R/T PRESSURE INJURIES. STAGE II TO COCCYX, STAGE II TO RIGHT BUTTOCK. CURRENTLY NPO FOR PROCEDURE. WHEN DIET RESUMES, RECOMMEND CONTINUE DIABETIC 2000 KCALS. ADD ENSURE MAX BID TO PROVIDE ADDITIONAL 300 KCALS, 60 G PROTEIN TO PROMOTE WOUND HEALING. FOLLOW FOR DIET ADVANCEMENT, INTAKE, AND WOUND HEALING.
--- NOTE | 2023-01-10 13:32 | HO.PM.IMPN ---
Subjective Subjective Date of Service: 01/10/23 Interval History: Seen and evaluated this morning no fever or chills Cr improved to baseline plan for biopsy today No other overnight events Review of Systems Review of Systems: Yes all other systems are reviewed and are negative Physical Exam Vital Signs: Vital Signs: Last Vital Signs Temp 97.4 F 01/10/23 11:55 Pulse 70 01/10/23 11:55 Resp 18 01/10/23 11:55 BP 123/75 01/10/23 11:55 Pulse Ox 97 01/10/23 11:55 O2 Del Method Room Air 01/10/23 11:55 BMI result Body Mass Index 24.2 Const: Other: General: AO X 2, no acute distress Resp: CTA bilateral CVS: S1,S2,irregular irregular GI: +BS, NT, no distention Skin: No rash, Mclaughlin in place Neuro: motor grossly intact Psych: appropriate affect Objective Data Active Medications Acetaminophen (Acetaminophen 325 Mg Tablet) 650 mg PO Q6H PRN PRN Reason: Pain, Mild (Pain Scale 1-3) Last Admin: 01/10/23 10:30 Dose: 650 mg Documented By: ORALIA Amlodipine Besylate (Amlodipine Besylate 5 Mg Tablet) 5 mg PO DAILY [facility]; Protocol Last Admin: 01/10/23 09:56 Dose: 5 mg Documented By: ORALIA Apixaban (Apixaban 2.5 Mg Tablet) 2.5 mg PO BID [facility] Last Admin: 01/07/23 08:00 Dose: 2.5 mg Documented By: RONALDO Bicalutamide (Bicalutamide 50 Mg Tablet) 50 mg PO TID [facility] Last Admin: 01/10/23 09:56 Dose: 50 mg Documented By: ORALIA Docusate Sodium (Docusate Sodium 100 Mg Capsule) 100 mg PO DAILY PRN PRN Reason: Constipation Last Admin: 01/05/23 08:05 Dose: 100 mg Documented By: RIOSCJOSESITO Finasteride (Finasteride 5 Mg Tablet) 5 mg PO DAILY [facility] Last Admin: 01/10/23 09:56 Dose: 5 mg Documented By: ORALIA Glucose (Glucose Gel 15 Gm Gel..Gram.) 15 gm PO Q15M PRN; Protocol PRN Reason: per Hypoglycemia Standing Ord. Dextrose (D10) 250 mls @ 750 mls/hr IV Q15M PRN; Protocol PRN Reason: per Hypoglycemia Standing Ord. Insulin Human Lispro (Insulin Lispro 100 Unit/Ml 3 Ml Vial) 0 unit SUBCUT QIDACHS [facility]; Protocol Last Admin: 01/10/23 12:12 Dose: Not Given Documented By: ORALIA Non-Admin Reason: NPO Metformin HCl (Metformin Hcl Er 500 Mg Tab.Er.24h) 2,000 mg PO DAILY [facility] Last Admin: 01/10/23 09:56 Dose: 2,000 mg Documented By: ORALIA Metoprolol Tartrate (Metoprolol Tartrate 25 Mg Tablet) 25 mg PO BID [facility]; Protocol Last Admin: 01/10/23 09:56 Dose: 25 mg Documented By: ORALIA Olanzapine (Olanzapine 10 Mg Vial) 5 mg IM DAILY PRN PRN Reason: agitation Ondansetron HCl (Ondansetron Hcl 4 Mg/2 Ml Vial) 4 mg IVPUSH Q8H PRN PRN Reason: Nausea and Vomiting Oxycodone HCl (Oxycodone Hcl Immed Release 5 Mg Tablet) 5 mg PO Q4H PRN PRN Reason: Pain, Severe (Pain Scale 7-10) Last Admin: 01/10/23 10:31 Dose: 5 mg Documented By: ORALIA Pharmacy Consult (Consult Rx Perform Med Rec) 1 each MISCELLANE ONCE PRN PRN Reason: Consult order Pravastatin Sodium (Pravastatin Sodium 40 Mg Tablet) 40 mg PO BEDTIME [facility] Last Admin: 01/09/23 21:40 Dose: 40 mg Documented By: KATH Sodium Chloride (0.9 % Sodium Chloride Flush 3 Ml Syringe) 3 ml IVFLUSH QSHIFT [facility] Last Admin: 01/10/23 09:57 Dose: 3 ml Documented By: ORALIA Tamsulosin HCl (Tamsulosin Hcl 0.4 Mg Capsule) 0.8 mg PO DAILY [facility] Last Admin: 01/10/23 09:56 Dose: 0.8 mg Documented By: ORALIA Labs 01/04/23 05:31 01/10/23 05:19 Labs: Laboratory Results - last 24 hr 01/09/23 01/09/23 01/10/23 16:00 21:28 05:19 Anion Gap 16 Estim Creat Clear Calc 47.8 Estimated GFR > 60 POC Glucose 178 H 250 H Random Glucose 172 H Calcium 8.7 01/10/23 01/10/23 07:12 11:39 Anion Gap Estim Creat Clear Calc Estimated GFR POC Glucose 175 H 181 H Random Glucose Calcium Assessment and Plan (1) Atrial fibrillation with rapid ventricular response: Status: Acute (2) Prostate cancer: Status: Acute (3) Metastasis to bone: Status: Acute (4) Pain due to malignant neoplasm metastatic to bone: Status: Acute Plan An 82M PMH paroxysmal afib on eliquis, DM, prostate ca, presented with weakness, mickey 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 with back pain Elevated PSA to 277 Bone scan reported T7 involvement Urology to do biopsy today eval appreciated, start bicalutamide , consider Hormonal treatment based on biopsy result Oncology consult, PSMA PET scan, GnRH therapy and second-generation hormone suppression/with or without chemotherapy, once diagnosis is confirmed. Oxycodone prn for pain Paroxysmal afib with rvr better controlled continue eliquis On metoprolol, 25 mg bid Cognitive disorder 2/2 acute delerium vs chronic dementia +/- delerium Could be related to metastatic cancer to brain, will be difficult to get an MRI on him given his unwillingness to follow commands, will discuss best options with oncology and HCP psychiatry appreciated, currently patient lack capacity to make most medical decisions and unlikely to be able to live safely independently OT eval for MoCA and ACLS, to assess his level of cognitive impairment and need for supportive services for independent living Outpatient dementia eval by neuro referral 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 BPH Cr back to baseline after Mclaughlin placement renal us with mild bilateral hydro Would need prostate biopsies in order to start GnRH therapy nephro eval avoid nephrotoxic meds physical deconditioning refusing PT, will try to do eval again as mental status improves dm insulin uti completed ceftin weakness refusing pt eval prostate ca gu eval dvt prophylaxis - eliquis full code reason for continued hospitalization: Pending oncology eval, needed biopsy and possible further testing for staging of cancer before discharge to SNF Time Spent With Patient Time: Total time managing care of this patient today ____ minutes. Quality Stroke Does the patient have a stroke diagnosis?: No VTE Prior VTE?: No VTE Risk Level:: Medical - moderate - high VTE Device Contraindication: Treatment Not Indicated VTE Drug Contraindication: N/A - Med Ordered
--- NOTE | 2023-01-10 14:34 | MHC.CM.PN ---
BIOPSY TODAY [place] STILL FOLLOWING
[2023-01-10 16:19] LABS: Glucose, Whole Blood 174 mg/dL (60-115)
--- NOTE | 2023-01-10 17:16 | MHC.SHP ---
Pre-Procedural Eval Section A Date of Service: 01/10/23 The patient is an INPATIENT: Yes Changes since office visit: No Cold of Flu in the past 2 weeks, No New Medical Problems, No Changes in Medication and No Patient answered all questions The History & Physical has been completed within 30 days and I have reviewed it.: Yes Section B Chief Complaint: ANTONELLA, genearlized weakness Details of Present Illness: potential metastatic prostate cancer Allergies: Allergies Allergy/AdvReac Type Severity Reaction Status Date / Time No Known Allergies Allergy Mild NOT Verified 12/26/22 21:17 [No Known Allergies*] APPLICABLE Plan Diagnosis/Plan: Unchanged ( potential metastatic prostate cancer) I have reviewed the history and physical and performed a pertinent physical examination on my patient. No changes have occurred unless specified. Time Spent With Patient Time: Total time managing care of this patient today ____ minutes.
--- NOTE | 2023-01-10 17:20 | PC.NURSE ---
patient alert and oriented to self, , place, situation, year, and current president. dr. barraza at bedside to review procedure and plan for surgery consent
--- NOTE | 2023-01-10 18:18 | P.CONAN_ITS ---
FORM[facility] Active Problems Active Problems: All Active Problems Atrial fibrillation with rapid ventricular response (Acute) Prostate cancer (Acute) Weakness (Acute) ANTONELLA (acute kidney injury) (Acute) Cognitive disorder (Acute) BPH (benign prostatic hyperplasia) (Acute) Metastasis to bone (Acute) Pain due to malignant neoplasm metastatic to bone (Acute) Past Medical History Medical History Atrial fibrillation Diabetes mellitus Osteomyelitis Prostate cancer Family History Family history of problems with anesthesia: No Surgical History History of Problems with Anesthesia: No Social History Social History Household Members: None Housing: House Do you presently have visiting nurse or other home services: No Alcohol intake: former Patient Tobacco Use Status: Former Tobacco user Smoked in Last 30 Days: Yes Use of substances other than those prescribed or required for medical reasons: No Currently Displaying Signs/Symptoms of Drug Intoxication Withdrawal: No Any prior treatment program specific to substance use: No Have you been hit, kicked, punched, or otherwise hurt by someone within the past year? If so, by whom?: No Do you feel safe in your current relationship?: Yes Is there a partner from a previous relationship who is making you feel unsafe now?: No Are you made to feel afraid or neglected: No Advance Directives: No Do you have thoughts of harming others: None Do you have a plan to hurt others: No Plan Recently lost weight without trying: Unsure How much weight loss: Unsure Eating poorly because of decreased appetite: Yes Nutrition screen score: 5 Nutrition Risks: Dental problems and Poor intake 0-25% >4 days Poor oral hygiene: No service: No Current occupational status: retired [employer] Allergies Allergy/AdvReac Type Severity Reaction Status Date / Time No Known Allergies Allergy Mild NOT Verified 12/26/22 21:17 [No Known Allergies*] APPLICABLE Active Medications: Current Medications Acetaminophen (Acetaminophen 325 Mg Tablet) 650 mg PO Q6H PRN PRN Reason: Pain, Mild (Pain Scale 1-3) Last Admin: 01/10/23 10:30 Dose: 650 mg Amlodipine Besylate (Amlodipine Besylate 5 Mg Tablet) 5 mg PO DAILY JORGE ALBERTO; Protocol Last Admin: 01/10/23 09:56 Dose: 5 mg Apixaban (Apixaban 2.5 Mg Tablet) 2.5 mg PO BID [facility] Last Admin: 01/07/23 08:00 Dose: 2.5 mg Bicalutamide (Bicalutamide 50 Mg Tablet) 50 mg PO TID [facility] Last Admin: 01/10/23 15:45 Dose: 50 mg Docusate Sodium (Docusate Sodium 100 Mg Capsule) 100 mg PO DAILY PRN PRN Reason: Constipation Last Admin: 01/05/23 08:05 Dose: 100 mg Finasteride (Finasteride 5 Mg Tablet) 5 mg PO DAILY [facility] Last Admin: 01/10/23 09:56 Dose: 5 mg Glucose (Glucose Gel 15 Gm Gel..Gram.) 15 gm PO Q15M PRN; Protocol PRN Reason: per Hypoglycemia Standing Ord. Dextrose (D10) 250 mls @ 750 mls/hr IV Q15M PRN; Protocol PRN Reason: per Hypoglycemia Standing Ord. Insulin Human Lispro (Insulin Lispro 100 Unit/Ml 3 Ml Vial) 0 unit SUBCUT QIDACHS [facility]; Protocol Last Admin: 01/10/23 16:28 Dose: Not Given Metformin HCl (Metformin Hcl Er 500 Mg Tab.Er.24h) 2,000 mg PO DAILY [facility] Last Admin: 01/10/23 09:56 Dose: 2,000 mg Metoprolol Tartrate (Metoprolol Tartrate 25 Mg Tablet) 25 mg PO BID [facility]; Protocol Last Admin: 01/10/23 09:56 Dose: 25 mg Olanzapine (Olanzapine 10 Mg Vial) 5 mg IM DAILY PRN PRN Reason: agitation Ondansetron HCl (Ondansetron Hcl 4 Mg/2 Ml Vial) 4 mg IVPUSH Q8H PRN PRN Reason: Nausea and Vomiting Oxycodone HCl (Oxycodone Hcl Immed Release 5 Mg Tablet) 5 mg PO Q4H PRN PRN Reason: Pain, Severe (Pain Scale 7-10) Last Admin: 01/10/23 10:31 Dose: 5 mg Pharmacy Consult (Consult Rx Perform Med Rec) 1 each MISCELLANE ONCE PRN PRN Reason: Consult order Pravastatin Sodium (Pravastatin Sodium 40 Mg Tablet) 40 mg PO BEDTIME [facility] Last Admin: 01/09/23 21:40 Dose: 40 mg Sodium Chloride (0.9 % Sodium Chloride Flush 3 Ml Syringe) 3 ml IVFLUSH QSHIFT [facility] Last Admin: 01/10/23 15:45 Dose: 3 ml Tamsulosin HCl (Tamsulosin Hcl 0.4 Mg Capsule) 0.8 mg PO DAILY [facility] Last Admin: 01/10/23 09:56 Dose: 0.8 mg Home Medications Medication Instructions Recorded Confirmed Last Taken Type amlodipine 5 mg tablet 5 mg PO DAILY 12/31/22 12/31/22 Unknown History clopidogrel 75 mg tablet 75 mg PO DAILY 12/31/22 12/31/22 Unknown History lisinopril 40 mg tablet 40 mg PO DAILY 12/31/22 12/31/22 Unknown History metformin 500 mg tablet,extended 2,000 mg PO QAM 12/31/22 12/31/22 Unknown History release 24 hr oxycodone 5 mg tablet 5 mg PO Q8H PRN pain 12/31/22 12/31/22 Unknown History oxycodone-acetaminophen 5 mg-325 1 tab PO DAILY PRN pain 12/31/22 12/31/22 Unknown History mg tablet pravastatin 40 mg tablet 40 mg PO BEDTIME 12/31/22 12/31/22 Unknown History tamsulosin 0.4 mg capsule 0.4 mg PO DAILY 12/31/22 12/31/22 Unknown History Exam Exam Date and Time: January 10, [id number] Height,Weight and Vital Signs: Height 5 ft 5 in Weight 66.1 kg Last Vital Signs Temp 97.5 F 01/10/23 18:16 Pulse 66 01/10/23 18:16 Resp 15 01/10/23 18:16 BP 103/61 01/10/23 18:16 Pulse Ox 100 01/10/23 18:16 O2 Del Method Nasal Cannula 01/10/23 18:16 O2 Flow Rate 4 01/10/23 18:16 Pertinent Lab Results Pertinent Lab Results: Laboratory Tests 12/31/22 12/31/22 12/31/22 09:14 09:55 09:55 WBC RBC Hgb Hct MCV MCH MCHC RDW Plt Count MPV Immature Gran % (Auto) Neut % (Auto) Lymph % (Auto) [place] % (Auto) Eos % (Auto) Baso % (Auto) Lymph # (Auto) [place] # (Auto) Eos # (Auto) Baso # (Auto) Abs Immat Gran (auto) Absolute Neuts (auto) Absolute Nucleated RBC Nucleated RBC % (auto) PT 16.6 H INR 1.4 H Sodium Potassium Chloride Carbon Dioxide Anion Gap BUN Creatinine Estim Creat Clear Calc Estimated GFR POC Glucose Random Glucose Fasting Glucose Lactic Acid 1.9 Calcium Total Bilirubin AST ALT Alkaline Phosphatase Total Creatine Kinase B-Natriuretic Peptide Total Protein Albumin Prostate Specific Ag Urine Color Yellow Urine Appearance Clear Urine pH 5.0 Ur Specific [place] 1.015 Urine Protein 30 (1+) H Urine Glucose (UA) Negative Urine Ketones Negative Urine Blood Small (1+) H Urine Nitrite Negative Ur Leukocyte Esterase Small (1+) H Urine RBC 3-5 H Urine WBC 6-10 H Ur Squamous Epith Cells 6-10 Urine Bacteria None Seen Hyaline Casts 3-5 Ur Random Sodium Urine Creatinine 12/31/22 12/31/22 12/31/22 09:56 09:56 19:31 WBC 12.0 H RBC 4.19 L Hgb 12.7 L Hct 37.2 L MCV 88.8 MCH 30.3 MCHC 34.1 RDW 13.1 Plt Count 356 MPV 9.7 Immature Gran % (Auto) 0.4 Neut % (Auto) 85.1 H Lymph % (Auto) 4.5 L [place] % (Auto) 8.9 Eos % (Auto) 0.8 Baso % (Auto) 0.3 Lymph # (Auto) 0.5 L [place] # (Auto) 1.1 Eos # (Auto) 0.1 Baso # (Auto) 0.0 Abs Immat Gran (auto) 0.05 H Absolute Neuts (auto) 10.2 H Absolute Nucleated RBC 0.000 Nucleated RBC % (auto) 0.0 PT INR Sodium 138 Potassium 4.3 Chloride 104 Carbon Dioxide 22 Anion Gap 16 BUN 40 H Creatinine 1.44 H Estim Creat Clear Calc 35.5 Estimated GFR 47 POC Glucose Random Glucose 192 H Fasting Glucose Lactic Acid Calcium 9.5 Total Bilirubin 0.7 AST 21 ALT 27 Alkaline Phosphatase 98 Total Creatine Kinase 137 B-Natriuretic Peptide 182 H Total Protein 6.9 Albumin 3.9 Prostate Specific Ag 273.74 H Urine Color Urine Appearance Urine pH Ur Specific [place] Urine Protein Urine Glucose (UA) Urine Ketones Urine Blood Urine Nitrite Ur Leukocyte Esterase Urine RBC Urine WBC Ur Squamous Epith Cells Urine Bacteria Hyaline Casts Ur Random Sodium Urine Creatinine 01/01/23 01/01/23 01/01/23 06:50 06:50 16:21 WBC 11.5 H RBC 4.14 L Hgb 12.6 L Hct 36.2 L MCV 87.4 MCH 30.4 MCHC 34.8 RDW 13.0 Plt Count 350 MPV 9.8 Immature Gran % (Auto) Neut % (Auto) Lymph % (Auto) [place] % (Auto) Eos % (Auto) Baso % (Auto) Lymph # (Auto) [place] # (Auto) Eos # (Auto) Baso # (Auto) Abs Immat Gran (auto) Absolute Neuts (auto) Absolute Nucleated RBC 0.000 Nucleated RBC % (auto) 0.0 PT INR Sodium 141 Potassium 4.0 Chloride 109 H Carbon Dioxide 20 L Anion Gap 16 BUN 34 H Creatinine 1.33 Estim Creat Clear Calc 38.5 Estimated GFR 52 POC Glucose 189 H Random Glucose 163 H Fasting Glucose Lactic Acid Calcium 9.3 Total Bilirubin AST ALT Alkaline Phosphatase Total Creatine Kinase B-Natriuretic Peptide Total Protein Albumin Prostate Specific Ag Urine Color Urine Appearance Urine pH Ur Specific [place] Urine Protein Urine Glucose (UA) Urine Ketones Urine Blood Urine Nitrite Ur Leukocyte Esterase Urine RBC Urine WBC Ur Squamous Epith Cells Urine Bacteria Hyaline Casts Ur Random Sodium Urine Creatinine 01/01/23 01/02/23 01/02/23 20:12 06:00 06:00 WBC 12.7 H RBC 4.01 L Hgb 12.4 L Hct 35.6 L MCV 88.8 MCH 30.9 MCHC 34.8 RDW 13.0 Plt Count 328 MPV 10.1 Immature Gran % (Auto) Neut % (Auto) Lymph % (Auto) [place] % (Auto) Eos % (Auto) Baso % (Auto) Lymph # (Auto) [place] # (Auto) Eos # (Auto) Baso # (Auto) Abs Immat Gran (auto) Absolute Neuts (auto) Absolute Nucleated RBC 0.000 Nucleated RBC % (auto) 0.0 PT INR Sodium 142 Potassium 4.1 Chloride 109 H Carbon Dioxide 20 L Anion Gap 17 BUN 34 H Creatinine 1.74 H Estim Creat Clear Calc 29.4 Estimated GFR 38 POC Glucose 264 H Random Glucose Fasting Glucose 137 H Lactic Acid Calcium 9.1 Total Bilirubin AST ALT Alkaline Phosphatase Total Creatine Kinase B-Natriuretic Peptide Total Protein Albumin Prostate Specific Ag Urine Color Urine Appearance Urine pH Ur Specific [place] Urine Protein Urine Glucose (UA) Urine Ketones Urine Blood Urine Nitrite Ur Leukocyte Esterase Urine RBC Urine WBC Ur Squamous Epith Cells Urine Bacteria Hyaline Casts Ur Random Sodium Urine Creatinine 01/02/23 01/02/23 01/02/23 07:02 11:25 15:59 WBC RBC Hgb Hct MCV MCH MCHC RDW Plt Count MPV Immature Gran % (Auto) Neut % (Auto) Lymph % (Auto) [place] % (Auto) Eos % (Auto) Baso % (Auto) Lymph # (Auto) [place] # (Auto) Eos # (Auto) Baso # (Auto) Abs Immat Gran (auto) Absolute Neuts (auto) Absolute Nucleated RBC Nucleated RBC % (auto) PT INR Sodium Potassium Chloride Carbon Dioxide Anion Gap BUN Creatinine Estim Creat Clear Calc Estimated GFR POC Glucose 151 H 188 H 296 H Random Glucose Fasting Glucose Lactic Acid Calcium Total Bilirubin AST ALT Alkaline Phosphatase Total Creatine Kinase B-Natriuretic Peptide Total Protein Albumin Prostate Specific Ag Urine Color Urine Appearance Urine pH Ur Specific [place] Urine Protein Urine Glucose (UA) Urine Ketones Urine Blood Urine Nitrite Ur Leukocyte Esterase Urine RBC Urine WBC Ur Squamous Epith Cells Urine Bacteria Hyaline Casts Ur Random Sodium Urine Creatinine 01/02/23 01/03/23 01/03/23 20:11 10:31 11:26 WBC RBC Hgb Hct MCV MCH MCHC RDW Plt Count MPV Immature Gran % (Auto) Neut % (Auto) Lymph % (Auto) [place] % (Auto) Eos % (Auto) Baso % (Auto) Lymph # (Auto) [place] # (Auto) Eos # (Auto) Baso # (Auto) Abs Immat Gran (auto) Absolute Neuts (auto) Absolute Nucleated RBC Nucleated RBC % (auto) PT INR Sodium Potassium Chloride Carbon Dioxide Anion Gap BUN Creatinine Estim Creat Clear Calc Estimated GFR POC Glucose 130 H 175 H 158 H Random Glucose Fasting Glucose Lactic Acid Calcium Total Bilirubin AST ALT Alkaline Phosphatase Total Creatine Kinase B-Natriuretic Peptide Total Protein Albumin Prostate Specific Ag Urine Color Urine Appearance Urine pH Ur Specific [place] Urine Protein Urine Glucose (UA) Urine Ketones Urine Blood Urine Nitrite Ur Leukocyte Esterase Urine RBC Urine WBC Ur Squamous Epith Cells Urine Bacteria Hyaline Casts Ur Random Sodium Urine Creatinine 01/03/23 01/03/23 01/04/23 16:14 20:04 05:31 WBC 13.1 H RBC 4.01 L Hgb 12.2 L Hct 35.3 L MCV 88.0 MCH 30.4 MCHC 34.6 RDW 12.7 Plt Count 317 MPV 9.9 Immature Gran % (Auto) Neut % (Auto) Lymph % (Auto) [place] % (Auto) Eos % (Auto) Baso % (Auto) Lymph # (Auto) [place] # (Auto) Eos # (Auto) Baso # (Auto) Abs Immat Gran (auto) Absolute Neuts (auto) Absolute Nucleated RBC 0.000 Nucleated RBC % (auto) 0.0 PT INR Sodium Potassium Chloride Carbon Dioxide Anion Gap BUN Creatinine Estim Creat Clear Calc Estimated GFR POC Glucose 158 H 156 H Random Glucose Fasting Glucose Lactic Acid Calcium Total Bilirubin AST ALT Alkaline Phosphatase Total Creatine Kinase B-Natriuretic Peptide Total Protein Albumin Prostate Specific Ag Urine Color Urine Appearance Urine pH Ur Specific [place] Urine Protein Urine Glucose (UA) Urine Ketones Urine Blood Urine Nitrite Ur Leukocyte Esterase Urine RBC Urine WBC Ur Squamous Epith Cells Urine Bacteria Hyaline Casts Ur Random Sodium Urine Creatinine 01/04/23 01/04/23 01/04/23 05:31 07:19 11:29 WBC RBC Hgb Hct MCV MCH MCHC RDW Plt Count MPV Immature Gran % (Auto) Neut % (Auto) Lymph % (Auto) [place] % (Auto) Eos % (Auto) Baso % (Auto) Lymph # (Auto) [place] # (Auto) Eos # (Auto) Baso # (Auto) Abs Immat Gran (auto) Absolute Neuts (auto) Absolute Nucleated RBC Nucleated RBC % (auto) PT INR Sodium 139 Potassium 4.8 Chloride 106 Carbon Dioxide 20 L Anion Gap 18 BUN 39 H Creatinine 2.00 H Estim Creat Clear Calc 25.6 Estimated GFR 32 POC Glucose 158 H 204 H Random Glucose Fasting Glucose 150 H Lactic Acid Calcium 8.8 Total Bilirubin AST ALT Alkaline Phosphatase Total Creatine Kinase B-Natriuretic Peptide Total Protein Albumin Prostate Specific Ag Urine Color Urine Appearance Urine pH Ur Specific [place] Urine Protein Urine Glucose (UA) Urine Ketones Urine Blood Urine Nitrite Ur Leukocyte Esterase Urine RBC Urine WBC Ur Squamous Epith Cells Urine Bacteria Hyaline Casts Ur Random Sodium Urine Creatinine 01/04/23 01/04/23 01/05/23 15:56 20:27 07:33 WBC RBC Hgb Hct MCV MCH MCHC RDW Plt Count MPV Immature Gran % (Auto) Neut % (Auto) Lymph % (Auto) [place] % (Auto) Eos % (Auto) Baso % (Auto) Lymph # (Auto) [place] # (Auto) Eos # (Auto) Baso # (Auto) Abs Immat Gran (auto) Absolute Neuts (auto) Absolute Nucleated RBC Nucleated RBC % (auto) PT INR Sodium Potassium Chloride Carbon Dioxide Anion Gap BUN Creatinine Estim Creat Clear Calc Estimated GFR POC Glucose 189 H 167 H 166 H Random Glucose Fasting Glucose Lactic Acid Calcium Total Bilirubin AST ALT Alkaline Phosphatase Total Creatine Kinase B-Natriuretic Peptide Total Protein Albumin Prostate Specific Ag Urine Color Urine Appearance Urine pH Ur Specific [place] Urine Protein Urine Glucose (UA) Urine Ketones Urine Blood Urine Nitrite Ur Leukocyte Esterase Urine RBC Urine WBC Ur Squamous Epith Cells Urine Bacteria Hyaline Casts Ur Random Sodium Urine Creatinine 01/05/23 01/05/23 01/05/23 09:59 10:52 15:48 WBC RBC Hgb Hct MCV MCH MCHC RDW Plt Count MPV Immature Gran % (Auto) Neut % (Auto) Lymph % (Auto) [place] % (Auto) Eos % (Auto) Baso % (Auto) Lymph # (Auto) [place] # (Auto) Eos # (Auto) Baso # (Auto) Abs Immat Gran (auto) Absolute Neuts (auto) Absolute Nucleated RBC Nucleated RBC % (auto) PT INR Sodium 140 Potassium 4.1 Chloride 107 Carbon Dioxide 19 L Anion Gap 18 BUN 42 H Creatinine 2.21 H Estim Creat Clear Calc 23.1 Estimated GFR 29 POC Glucose 218 H 261 H Random Glucose 206 H Fasting Glucose Lactic Acid Calcium 8.9 Total Bilirubin AST ALT Alkaline Phosphatase Total Creatine Kinase B-Natriuretic Peptide Total Protein Albumin Prostate Specific Ag Urine Color Urine Appearance Urine pH Ur Specific [place] Urine Protein Urine Glucose (UA) Urine Ketones Urine Blood Urine Nitrite Ur Leukocyte Esterase Urine RBC Urine WBC Ur Squamous Epith Cells Urine Bacteria Hyaline Casts Ur Random Sodium Urine Creatinine 01/05/23 01/06/23 01/06/23 19:52 07:15 11:19 WBC RBC Hgb Hct MCV MCH MCHC RDW Plt Count MPV Immature Gran % (Auto) Neut % (Auto) Lymph % (Auto) [place] % (Auto) Eos % (Auto) Baso % (Auto) Lymph # (Auto) [place] # (Auto) Eos # (Auto) Baso # (Auto) Abs Immat Gran (auto) Absolute Neuts (auto) Absolute Nucleated RBC Nucleated RBC % (auto) PT INR Sodium Potassium Chloride Carbon Dioxide Anion Gap BUN Creatinine Estim Creat Clear Calc Estimated GFR POC Glucose 310 H 178 H 220 H Random Glucose Fasting Glucose Lactic Acid Calcium Total Bilirubin AST ALT Alkaline Phosphatase Total Creatine Kinase B-Natriuretic Peptide Total Protein Albumin Prostate Specific Ag Urine Color Urine Appearance Urine pH Ur Specific [place] Urine Protein Urine Glucose (UA) Urine Ketones Urine Blood Urine Nitrite Ur Leukocyte Esterase Urine RBC Urine WBC Ur Squamous Epith Cells Urine Bacteria Hyaline Casts Ur Random Sodium Urine Creatinine 01/06/23 01/06/23 01/06/23 14:53 16:03 20:19 WBC RBC Hgb Hct MCV MCH MCHC RDW Plt Count MPV Immature Gran % (Auto) Neut % (Auto) Lymph % (Auto) [place] % (Auto) Eos % (Auto) Baso % (Auto) Lymph # (Auto) [place] # (Auto) Eos # (Auto) Baso # (Auto) Abs Immat Gran (auto) Absolute Neuts (auto) Absolute Nucleated RBC Nucleated RBC % (auto) PT INR Sodium Potassium Chloride Carbon Dioxide Anion Gap BUN Creatinine Estim Creat Clear Calc Estimated GFR POC Glucose 235 H 172 H Random Glucose Fasting Glucose Lactic Acid Calcium Total Bilirubin AST ALT Alkaline Phosphatase Total Creatine Kinase B-Natriuretic Peptide Total Protein Albumin Prostate Specific Ag Urine Color Urine Appearance Urine pH Ur Specific [place] Urine Protein Urine Glucose (UA) Urine Ketones Urine Blood Urine Nitrite Ur Leukocyte Esterase Urine RBC Urine WBC Ur Squamous Epith Cells Urine Bacteria Hyaline Casts Ur Random Sodium 54.0 Urine Creatinine 52.14 01/07/23 01/07/23 01/07/23 05:25 07:04 11:09 WBC RBC Hgb Hct MCV MCH MCHC RDW Plt Count MPV Immature Gran % (Auto) Neut % (Auto) Lymph % (Auto) [place] % (Auto) Eos % (Auto) Baso % (Auto) Lymph # (Auto) [place] # (Auto) Eos # (Auto) Baso # (Auto) Abs Immat Gran (auto) Absolute Neuts (auto) Absolute Nucleated RBC Nucleated RBC % (auto) PT INR Sodium 138 Potassium 3.5 Chloride 106 Carbon Dioxide 22 Anion Gap 14 BUN 46 H Creatinine 2.01 H Estim Creat Clear Calc 25.4 Estimated GFR 32 POC Glucose 187 H 256 H Random Glucose 201 H Fasting Glucose Lactic Acid Calcium 8.9 Total Bilirubin AST ALT Alkaline Phosphatase Total Creatine Kinase B-Natriuretic Peptide Total Protein Albumin Prostate Specific Ag Urine Color Urine Appearance Urine pH Ur Specific [place] Urine Protein Urine Glucose (UA) Urine Ketones Urine Blood Urine Nitrite Ur Leukocyte Esterase Urine RBC Urine WBC Ur Squamous Epith Cells Urine Bacteria Hyaline Casts Ur Random Sodium Urine Creatinine 01/07/23 01/07/23 01/08/23 16:01 20:03 05:13 WBC RBC Hgb Hct MCV MCH MCHC RDW Plt Count MPV Immature Gran % (Auto) Neut % (Auto) Lymph % (Auto) [place] % (Auto) Eos % (Auto) Baso % (Auto) Lymph # (Auto) [place] # (Auto) Eos # (Auto) Baso # (Auto) Abs Immat Gran (auto) Absolute Neuts (auto) Absolute Nucleated RBC Nucleated RBC % (auto) PT INR Sodium 139 Potassium 3.7 Chloride 106 Carbon Dioxide 22 Anion Gap 15 BUN 39 H Creatinine 1.43 H Estim Creat Clear Calc 35.8 Estimated GFR 48 POC Glucose 304 H 306 H Random Glucose 190 H Fasting Glucose Lactic Acid Calcium 9.1 Total Bilirubin AST ALT Alkaline Phosphatase Total Creatine Kinase B-Natriuretic Peptide Total Protein Albumin Prostate Specific Ag Urine Color Urine Appearance Urine pH Ur Specific [place] Urine Protein Urine Glucose (UA) Urine Ketones Urine Blood Urine Nitrite Ur Leukocyte Esterase Urine RBC Urine WBC Ur Squamous Epith Cells Urine Bacteria Hyaline Casts Ur Random Sodium Urine Creatinine 01/08/23 01/08/23 01/08/23 07:20 15:59 20:19 WBC RBC Hgb Hct MCV MCH MCHC RDW Plt Count MPV Immature Gran % (Auto) Neut % (Auto) Lymph % (Auto) [place] % (Auto) Eos % (Auto) Baso % (Auto) Lymph # (Auto) [place] # (Auto) Eos # (Auto) Baso # (Auto) Abs Immat Gran (auto) Absolute Neuts (auto) Absolute Nucleated RBC Nucleated RBC % (auto) PT INR Sodium Potassium Chloride Carbon Dioxide Anion Gap BUN Creatinine Estim Creat Clear Calc Estimated GFR POC Glucose 190 H 302 H 245 H Random Glucose Fasting Glucose Lactic Acid Calcium Total Bilirubin AST ALT Alkaline Phosphatase Total Creatine Kinase B-Natriuretic Peptide Total Protein Albumin Prostate Specific Ag Urine Color Urine Appearance Urine pH Ur Specific [place] Urine Protein Urine Glucose (UA) Urine Ketones Urine Blood Urine Nitrite Ur Leukocyte Esterase Urine RBC Urine WBC Ur Squamous Epith Cells Urine Bacteria Hyaline Casts Ur Random Sodium Urine Creatinine 01/09/23 01/09/23 01/09/23 07:15 11:03 16:00 WBC RBC Hgb Hct MCV MCH MCHC RDW Plt Count MPV Immature Gran % (Auto) Neut % (Auto) Lymph % (Auto) [place] % (Auto) Eos % (Auto) Baso % (Auto) Lymph # (Auto) [place] # (Auto) Eos # (Auto) Baso # (Auto) Abs Immat Gran (auto) Absolute Neuts (auto) Absolute Nucleated RBC Nucleated RBC % (auto) PT INR Sodium Potassium Chloride Carbon Dioxide Anion Gap BUN Creatinine Estim Creat Clear Calc Estimated GFR POC Glucose 222 H 244 H 178 H Random Glucose Fasting Glucose Lactic Acid Calcium Total Bilirubin AST ALT Alkaline Phosphatase Total Creatine Kinase B-Natriuretic Peptide Total Protein Albumin Prostate Specific Ag Urine Color Urine Appearance Urine pH Ur Specific [place] Urine Protein Urine Glucose (UA) Urine Ketones Urine Blood Urine Nitrite Ur Leukocyte Esterase Urine RBC Urine WBC Ur Squamous Epith Cells Urine Bacteria Hyaline Casts Ur Random Sodium Urine Creatinine 01/09/23 01/10/23 01/10/23 21:28 05:19 07:12 WBC RBC Hgb Hct MCV MCH MCHC RDW Plt Count MPV Immature Gran % (Auto) Neut % (Auto) Lymph % (Auto) [place] % (Auto) Eos % (Auto) Baso % (Auto) Lymph # (Auto) [place] # (Auto) Eos # (Auto) Baso # (Auto) Abs Immat Gran (auto) Absolute Neuts (auto) Absolute Nucleated RBC Nucleated RBC % (auto) PT INR Sodium 140 Potassium 3.6 Chloride 103 Carbon Dioxide 25 Anion Gap 16 BUN 28 H Creatinine 1.07 Estim Creat Clear Calc 47.8 Estimated GFR > 60 POC Glucose 250 H 175 H Random Glucose 172 H Fasting Glucose Lactic Acid Calcium 8.7 Total Bilirubin AST ALT Alkaline Phosphatase Total Creatine Kinase B-Natriuretic Peptide Total Protein Albumin Prostate Specific Ag Urine Color Urine Appearance Urine pH Ur Specific [place] Urine Protein Urine Glucose (UA) Urine Ketones Urine Blood Urine Nitrite Ur Leukocyte Esterase Urine RBC Urine WBC Ur Squamous Epith Cells Urine Bacteria Hyaline Casts Ur Random Sodium Urine Creatinine 01/10/23 01/10/23 11:39 16:12 WBC RBC Hgb Hct MCV MCH MCHC RDW Plt Count MPV Immature Gran % (Auto) Neut % (Auto) Lymph % (Auto) [place] % (Auto) Eos % (Auto) Baso % (Auto) Lymph # (Auto) [place] # (Auto) Eos # (Auto) Baso # (Auto) Abs Immat Gran (auto) Absolute Neuts (auto) Absolute Nucleated RBC Nucleated RBC % (auto) PT INR Sodium Potassium Chloride Carbon Dioxide Anion Gap BUN Creatinine Estim Creat Clear Calc Estimated GFR POC Glucose 181 H 174 H Random Glucose Fasting Glucose Lactic Acid Calcium Total Bilirubin AST ALT Alkaline Phosphatase Total Creatine Kinase B-Natriuretic Peptide Total Protein Albumin Prostate Specific Ag Urine Color Urine Appearance Urine pH Ur Specific [place] Urine Protein Urine Glucose (UA) Urine Ketones Urine Blood Urine Nitrite Ur Leukocyte Esterase Urine RBC Urine WBC Ur Squamous Epith Cells Urine Bacteria Hyaline Casts Ur Random Sodium Urine Creatinine Airway Mallampati Class: III TM Dist: >3cm Neck ROM: Full Loose/Missing/Broken Teeth: Yes (totally edentulous) Assessment and Plan Assessment Anesthesia Assessment: Anesthesia Plan Discussed and Chart Reviewed Final Anesthetic Review Family History of Problems with Anesthesia: No History of Problems with Anesthesia: No NPO: Yes ASA Class: III Final Preanesthetic Review: No Changes in Pt Med Stat, Meds/Allgs Chart Reviewed, Consent Obtained/Reviewed and Anes Risks/Benef Reviewed Patient Risk: Low Procedure Risk: Low Anesthetic Plan Anesthetic Plan: MAC: Disposition: Standard PACU
--- NOTE | 2023-01-10 18:18 | W.PM.OPN ---
Operative Note Operative Note Date of Service: 01/10/23 Narrative: Preoperative diagnosis: Elevated PSA 273 - bone scan positive Postoperative diagnosis: Prostate Cancer Procedure: 3. transrectal ultrasound-guided prostate biopsy 4 core Surgeon: Dr. Nate Mendez Anesthetic: Local Indications for procedure: Elevated PSA Prostate Cancer - PSA 2763 Procedure: After informed consent was verified, the patient was brought into the procedure area and lay left-hand side down on the table. Patient identity confirmed. Perioperative antibiotics confirmed. Safety pause time out performed. DEANA performed to dilate rectal sphincter - prostate was hard suggestive of T3 clinical disease Iodine 10cc with Gel was placed per rectum Ultrasound probe was placed per rectum The prostate was otherwise heterogenous with indistinct margins in nature A 4 core biopsy was performed with 2 cores each side. single core taken at base and apex on each side. he was transferred in stable condition to recovery area Pathology: 4 core prostate biopsy.
[2023-01-10 20:44] LABS: Glucose, Whole Blood 197 mg/dL (60-115)
[2023-01-10] MEDS: Insulin Lispro 100 UNIT/ML 3 ML VIAL SUBCUT (21:00)
[2023-01-10] MEDS: Pravastatin Sodium 40 MG TABLET PO (21:00)
[2023-01-11 03:29] VITALS: BP 110/60; PULSE 90; RESP 18; TEMP 36.6; O2SAT 98
[2023-01-11 07:16] LABS: Glucose, Whole Blood 292 mg/dL (60-115)
[2023-01-11 07:38] VITALS: BP 125/63; PULSE 76; RESP 18; TEMP 36.4; O2SAT 97
[2023-01-11] MEDS: Tamsulosin HCL 0.4 MG CAPSULE 0.8 MG PO (08:00)
[2023-01-11] MEDS: Insulin Lispro 100 UNIT/ML 3 ML VIAL SUBCUT ×4 (08:00→22:07)
[2023-01-11] MEDS: metFORMIN HCl ER 500 MG TAB.ER.24H 2000 MG PO (08:01)
[2023-01-11] MEDS: Finasteride 5 MG TABLET PO (08:01)
[2023-01-11] MEDS: Bicalutamide 50 MG TABLET PO ×3 (08:01→20:34)
[2023-01-11] MEDS: 0.9 % Sodium Chloride Flush 3 ML SYRINGE IVFLUSH ×3 (08:01→20:34)
[2023-01-11] MEDS: amLODIPine Besylate 5 MG TABLET PO (08:01)
[2023-01-11] MEDS: Metoprolol Tartrate 25 MG TABLET PO ×2 (08:01→20:34)
--- NOTE | 2023-01-11 09:45 | MHC.CM.PN ---
PATIENT'S FAMILY NOW HAS BLANK [place] POWER OF DOWEL SETTING MACHINE OPERATOR FORMS. THIS SENIOR BIOINFORMATICS SCIENTIST REACHED OUT TO [facility] TO ATTEMPT TO ARRANGE A TIME FOR HER SERVICES. CASE MANAGEMENT TO FOLLOW UP WITH FAMILY
--- NOTE | 2023-01-11 09:57 | P.PNIM_ITS ---
Subjective Subjective Date of Service: 01/11/23 Interval History: Seen and evaluated this morning no fever or chills Had prostate biopsy No other overnight events Review of Systems Review of Systems: Yes all other systems are reviewed and are negative Physical Exam Vital Signs: Vital Signs: Last Vital Signs Temp 97.6 F 01/11/23 07:38 Pulse 76 01/11/23 07:38 Resp 18 01/11/23 07:38 BP 125/63 01/11/23 07:38 Pulse Ox 97 01/11/23 07:38 O2 Del Method Room Air 01/11/23 07:38 O2 Flow Rate 4 01/10/23 18:16 Oxygen Flow Rate 3 01/10/23 18:20 BMI result Body Mass Index 24.2 Const: Other: General: AO X 2, no acute distress Resp: CTA bilateral CVS: S1,S2,irregular irregular GI: +BS, NT, no distention Skin: No rash, Mclaughlin in place Neuro: motor grossly intact Psych: appropriate affect Objective Data Active Medications Acetaminophen (Acetaminophen 325 Mg Tablet) 650 mg PO Q6H PRN PRN Reason: Pain, Mild (Pain Scale 1-3) Last Admin: 01/10/23 21:05 Dose: 650 mg Documented By: GRIS Acetaminophen (Acetaminophen 325 Mg Tablet) 650 mg PO ONCE PRN PRN Reason: Pain, Mild (Pain Scale 1-3) Amlodipine Besylate (Amlodipine Besylate 5 Mg Tablet) 5 mg PO DAILY [facility]; Protocol Last Admin: 01/11/23 08:01 Dose: 5 mg Documented By: ORALIA Apixaban (Apixaban 2.5 Mg Tablet) 2.5 mg PO BID [facility] Last Admin: 01/07/23 08:00 Dose: 2.5 mg Documented By: RONALDO Bicalutamide (Bicalutamide 50 Mg Tablet) 50 mg PO TID [facility] Last Admin: 01/11/23 08:01 Dose: 50 mg Documented By: ORALIA Docusate Sodium (Docusate Sodium 100 Mg Capsule) 100 mg PO DAILY PRN PRN Reason: Constipation Last Admin: 01/05/23 08:05 Dose: 100 mg Documented By: RIOSCJOSESITO Fentanyl (Fentanyl Citrate/Pf 100 Mcg/2 Ml Vial) 25 mcg IVPUSH Q5M PRN; Protocol PRN Reason: Pain, Moderate(Pain Scale 4-6) Finasteride (Finasteride 5 Mg Tablet) 5 mg PO DAILY [facility] Last Admin: 01/11/23 08:01 Dose: 5 mg Documented By: ORALIA Glucose (Glucose Gel 15 Gm Gel..Gram.) 15 gm PO Q15M PRN; Protocol PRN Reason: per Hypoglycemia Standing Ord. Dextrose (D10) 250 mls @ 750 mls/hr IV Q15M PRN; Protocol PRN Reason: per Hypoglycemia Standing Ord. Insulin Human Lispro (Insulin Lispro 100 Unit/Ml 3 Ml Vial) 0 unit SUBCUT QIDACHS [facility]; Protocol Last Admin: 01/11/23 08:00 Dose: 6 unit Documented By: ORALIA Metformin HCl (Metformin Hcl Er 500 Mg Tab.Er.24h) 2,000 mg PO DAILY [facility] Last Admin: 01/11/23 08:01 Dose: 2,000 mg Documented By: ORALIA Metoprolol Tartrate (Metoprolol Tartrate 25 Mg Tablet) 25 mg PO BID [facility]; Protocol Last Admin: 01/11/23 08:01 Dose: 25 mg Documented By: ORALIA Olanzapine (Olanzapine 10 Mg Vial) 5 mg IM DAILY PRN PRN Reason: agitation Ondansetron HCl (Ondansetron Hcl 4 Mg/2 Ml Vial) 4 mg IVPUSH Q8H PRN PRN Reason: Nausea and Vomiting Ondansetron HCl (Ondansetron Hcl 4 Mg/2 Ml Vial) 4 mg IVPUSH ONCE PRN PRN Reason: Nausea and Vomiting Oxycodone HCl (Oxycodone Hcl Immed Release 5 Mg Tablet) 5 mg PO Q4H PRN PRN Reason: Pain, Severe (Pain Scale 7-10) Last Admin: 01/10/23 21:05 Dose: 5 mg Documented By: GRIS Pharmacy Consult (Consult Rx Perform Med Rec) 1 each MISCELLANE ONCE PRN PRN Reason: Consult order Pravastatin Sodium (Pravastatin Sodium 40 Mg Tablet) 40 mg PO BEDTIME [facility] Last Admin: 01/10/23 21:00 Dose: 40 mg Documented By: GRIS Sodium Chloride (0.9 % Sodium Chloride Flush 3 Ml Syringe) 3 ml IVFLUSH QSHIFT [facility] Last Admin: 01/11/23 08:01 Dose: 3 ml Documented By: ORALIA Tamsulosin HCl (Tamsulosin Hcl 0.4 Mg Capsule) 0.8 mg PO DAILY [facility] Last Admin: 01/11/23 08:00 Dose: 0.8 mg Documented By: ORALIA Labs 01/04/23 05:31 01/10/23 05:19 Labs: Laboratory Results - last 24 hr 01/10/23 01/10/23 01/10/23 11:39 16:12 20:38 POC Glucose 181 H 174 H 197 H 01/11/23 07:10 POC Glucose 292 H Assessment and Plan (1) Prostate cancer: Status: Acute (2) Pain due to malignant neoplasm metastatic to bone: Status: Acute (3) Metastasis to bone: Status: Acute Plan An 82M PMH paroxysmal afib on eliquis, DM, prostate ca, presented with weakness, mickey 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 Oxycodone prn for pain Paroxysmal afib with rvr better controlled continue eliquis On metoprolol, 25 mg bid Cognitive disorder 2/2 acute delerium vs chronic dementia +/- delerium Could be related to metastatic cancer to brain, will be difficult to get an MRI on him given his unwillingness to follow commands, will discuss best options with oncology and HCP psychiatry appreciated, currently patient lack capacity to make most medical decisions and unlikely to be able to live safely independently OT eval for MoCA and ACLS, to assess his level of cognitive impairment and need for supportive services for independent living Outpatient dementia eval by neuro referral 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 Quality Stroke Does the patient have a stroke diagnosis?: No VTE Prior VTE?: No VTE Risk Level:: Medical - moderate - high VTE Device Contraindication: Treatment Not Indicated VTE Drug Contraindication: N/A - Med Ordered
[2023-01-11 11:18] LABS: Glucose, Whole Blood 283 mg/dL (60-115)
[2023-01-11] MEDS: oxyCODONE HCl Immed Release 5 MG TABLET PO (12:13)
--- NOTE | 2023-01-11 14:37 | HO.POSTANES ---
Post Anesthesia Evaluation Post Anesthesia Evaluation Date of Service: 01/11/23 Vital Signs: Vital Signs Temp Pulse Resp BP Pulse Ox O2 Del Method 01/11/23 07:38 97.6 F 76 18 125/63 97 Room Air 01/11/23 03:29 98 F 90 18 110/60 98 Room Air Anesthesia: Monitored Mental Status: Awake Pain Control: Satisfactory Nausea/Vomiting: None Hydration: Adequate Anesthesia-Related Issues: No Anes. Related Issues
[2023-01-11 16:00] VITALS: BP 110/55; PULSE 74; RESP 18; TEMP 36.2; O2SAT 97
[2023-01-11 16:10] LABS: Glucose, Whole Blood 202 mg/dL (60-115)
[2023-01-11 20:00] VITALS: BP 108/59; PULSE 86; RESP 18; TEMP 36.6; O2SAT 95
[2023-01-11] MEDS: Pravastatin Sodium 40 MG TABLET PO (20:34)
[2023-01-11 20:51] LABS: Glucose, Whole Blood 226 mg/dL (60-115)
[2023-01-11] MEDS: Apixaban 2.5 MG TABLET PO (22:07)
[2023-01-12 02:45] VITALS: BP 115/59; PULSE 78; RESP 14; TEMP 36.2; O2SAT 93
[2023-01-12 07:47] LABS: Glucose, Whole Blood 152 mg/dL (60-115)
[2023-01-12 08:00] VITALS: BP 122/59; PULSE 72; RESP 18; TEMP 36.4; O2SAT 90
[2023-01-12] MEDS: Insulin Lispro 100 UNIT/ML 3 ML VIAL SUBCUT ×2 (09:34→21:57)
[2023-01-12] MEDS: 0.9 % Sodium Chloride Flush 3 ML SYRINGE IVFLUSH ×3 (09:35→21:57)
[2023-01-12] MEDS: Metoprolol Tartrate 25 MG TABLET PO ×2 (09:37→21:56)
[2023-01-12] MEDS: Tamsulosin HCL 0.4 MG CAPSULE 0.8 MG PO (09:37)
[2023-01-12] MEDS: metFORMIN HCl ER 500 MG TAB.ER.24H 2000 MG PO (09:37)
[2023-01-12] MEDS: amLODIPine Besylate 5 MG TABLET PO (09:37)
[2023-01-12] MEDS: Apixaban 2.5 MG TABLET PO ×2 (09:37→21:55)
[2023-01-12] MEDS: Bicalutamide 50 MG TABLET PO ×3 (09:38→21:56)
[2023-01-12] MEDS: Finasteride 5 MG TABLET PO (09:38)
--- NOTE | 2023-01-12 10:23 | P.PNIM_ITS ---
Subjective Subjective Date of Service: 01/12/23 Interval History: Seen and evaluated this morning laying comfortable in his bed no fever , chills pain under fair control No other overnight events Review of Systems Review of Systems: Yes all other systems are reviewed and are negative Physical Exam Vital Signs: Vital Signs: Last Vital Signs Temp 97.5 F 01/12/23 08:00 Pulse 72 01/12/23 08:00 Resp 18 01/12/23 08:00 BP 122/59 L 01/12/23 08:00 Pulse Ox 90 L 01/12/23 08:00 O2 Del Method Room Air 01/12/23 08:00 O2 Flow Rate 4 01/10/23 18:16 Oxygen Flow Rate 3 01/10/23 18:20 BMI result Body Mass Index 24.2 Const: Other: General: AO X 2, no acute distress Resp: CTA bilateral CVS: S1,S2,irregular irregular GI: +BS, NT, no distention Skin: No rash, Mclaughlin in place Neuro: motor grossly intact Psych: appropriate affect Objective Data Active Medications Acetaminophen (Acetaminophen 325 Mg Tablet) 650 mg PO Q6H PRN PRN Reason: Pain, Mild (Pain Scale 1-3) Last Admin: 01/10/23 21:05 Dose: 650 mg Documented By: GRIS Acetaminophen (Acetaminophen 325 Mg Tablet) 650 mg PO ONCE PRN PRN Reason: Pain, Mild (Pain Scale 1-3) Amlodipine Besylate (Amlodipine Besylate 5 Mg Tablet) 5 mg PO DAILY [facility]; Protocol Last Admin: 01/12/23 09:37 Dose: 5 mg Documented By: TALIB Apixaban (Apixaban 2.5 Mg Tablet) 2.5 mg PO BID [facility] Last Admin: 01/12/23 09:37 Dose: 2.5 mg Documented By: TALIB Bicalutamide (Bicalutamide 50 Mg Tablet) 50 mg PO TID [facility] Last Admin: 01/12/23 09:38 Dose: 50 mg Documented By: TALIB Docusate Sodium (Docusate Sodium 100 Mg Capsule) 100 mg PO DAILY PRN PRN Reason: Constipation Last Admin: 01/05/23 08:05 Dose: 100 mg Documented By: RIOSCEL Fentanyl (Fentanyl Citrate/Pf 100 Mcg/2 Ml Vial) 25 mcg IVPUSH Q5M PRN; Protocol PRN Reason: Pain, Moderate(Pain Scale 4-6) Finasteride (Finasteride 5 Mg Tablet) 5 mg PO DAILY [facility] Last Admin: 01/12/23 09:38 Dose: 5 mg Documented By: TALIB Glucose (Glucose Gel 15 Gm Gel..Gram.) 15 gm PO Q15M PRN; Protocol PRN Reason: per Hypoglycemia Standing Ord. Dextrose (D10) 250 mls @ 750 mls/hr IV Q15M PRN; Protocol PRN Reason: per Hypoglycemia Standing Ord. Insulin Human Lispro (Insulin Lispro 100 Unit/Ml 3 Ml Vial) 0 unit SUBCUT QIDACHS [facility]; Protocol Last Admin: 01/12/23 09:34 Dose: 2 unit Documented By: TALIB Metformin HCl (Metformin Hcl Er 500 Mg Tab.Er.24h) 2,000 mg PO DAILY [facility] Last Admin: 01/12/23 09:37 Dose: 2,000 mg Documented By: TALIB Metoprolol Tartrate (Metoprolol Tartrate 25 Mg Tablet) 25 mg PO BID [facility]; Protocol Last Admin: 01/12/23 09:37 Dose: 25 mg Documented By: TALIB Olanzapine (Olanzapine 10 Mg Vial) 5 mg IM DAILY PRN PRN Reason: agitation Ondansetron HCl (Ondansetron Hcl 4 Mg/2 Ml Vial) 4 mg IVPUSH Q8H PRN PRN Reason: Nausea and Vomiting Ondansetron HCl (Ondansetron Hcl 4 Mg/2 Ml Vial) 4 mg IVPUSH ONCE PRN PRN Reason: Nausea and Vomiting Oxycodone HCl (Oxycodone Hcl Immed Release 5 Mg Tablet) 5 mg PO Q4H PRN PRN Reason: Pain, Severe (Pain Scale 7-10) Last Admin: 01/11/23 12:13 Dose: 5 mg Documented By: ROBERT Pharmacy Consult (Consult Rx Perform Med Rec) 1 each MISCELLANE ONCE PRN PRN Reason: Consult order Pravastatin Sodium (Pravastatin Sodium 40 Mg Tablet) 40 mg PO BEDTIME [facility] Last Admin: 01/11/23 20:34 Dose: 40 mg Documented By: OZORALB Sodium Chloride (0.9 % Sodium Chloride Flush 3 Ml Syringe) [address] [facility] Last Admin: 01/12/23 09:35 Dose: 3 ml Documented By: TALIB Tamsulosin HCl (Tamsulosin Hcl 0.4 Mg Capsule) 0.8 mg PO DAILY [facility] Last Admin: 01/12/23 09:37 Dose: 0.8 mg Documented By: TALIB Labs 01/04/23 05:31 01/10/23 05:19 Labs: Laboratory Results - last 24 hr 01/11/23 01/11/23 01/11/23 11:11 15:44 20:44 POC Glucose 283 H 202 H 226 H 01/12/23 07:36 POC Glucose 152 H Assessment and Plan (1) Atrial fibrillation with rapid ventricular response: Status: Acute (2) Prostate cancer: Status: Acute (3) Pain due to malignant neoplasm metastatic to bone: Status: Acute (4) Cognitive disorder: Status: Acute Plan An 82M PMH paroxysmal afib on eliquis, DM, prostate ca, presented with weakness, mickey 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 Oxycodone prn for pain Paroxysmal afib with rvr better controlled continue eliquis On metoprolol, 25 mg bid Cognitive disorder 2/2 acute delerium vs chronic dementia +/- delerium Could be related to metastatic cancer to brain, will be difficult to get an MRI on him given his unwillingness to follow commands, will discuss best options with oncology and HCP psychiatry appreciated, currently patient lack capacity to make most medical decisions and unlikely to be able to live safely independently OT eval for MoCA and ACLS, to assess his level of cognitive impairment and need for supportive services for independent living Outpatient dementia eval by neuro referral 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 BPH Cr back to baseline after Mclaughlin placement renal us with mild bilateral hydro nephro eval avoid nephrotoxic meds physical deconditioning Needs LTC at this point per PT dm insulin uti completed ceftin weakness refusing pt eval prostate ca gu eval dvt prophylaxis - eliquis full code reason for continued hospitalization: pending safe discharge to SNF Time Spent With Patient Time: Total time managing care of this patient today ____ minutes. Quality Stroke Does the patient have a stroke diagnosis?: No VTE Prior VTE?: No VTE Risk Level:: Medical - moderate - high VTE Device Contraindication: Treatment Not Indicated VTE Drug Contraindication: N/A - Med Ordered
--- NOTE | 2023-01-12 10:32 | MHC.CLN ---
F/U PT WITH INCREASED NUTRITION RISK R/T PRESSURE INJURIES. STAGE II TO COCCYX, STAGE II TO RIGHT BUTTOCK. DIET=DIABETIC 2000 KCALS. ENSURE MAX TID TO PROVIDE ADDITIONAL 450 KCALS, 90 G PROTEIN TO PROMOTE WOUND HEALING. INTAKE AT MEALS USUALLY GOOD, 50-100%. FOLLOW FOR INTAKE AND WOUND HEALING.
[2023-01-12 11:37] LABS: Glucose, Whole Blood 143 mg/dL (60-115)
[2023-01-12 15:16] VITALS: PULSE 86; O2SAT 98
[2023-01-12 16:00] VITALS: BP 124/58; PULSE 90; RESP 16; TEMP 36.3; O2SAT 95
[2023-01-12 16:23] LABS: Glucose, Whole Blood 141 mg/dL (60-115)
[2023-01-12 18:00] VITALS: BP 129/66; PULSE 99; RESP 16; TEMP 36.2; O2SAT 93
[2023-01-12 19:49] VITALS: BP 129/66; PULSE 99; RESP 16; TEMP 36.2; O2SAT 93
[2023-01-12 20:44] LABS: Glucose, Whole Blood 224 mg/dL (60-115)
[2023-01-12] MEDS: Pravastatin Sodium 40 MG TABLET PO (21:55)
[2023-01-12] MEDS: Acetaminophen 325 MG TABLET 650 MG PO (21:55)
[2023-01-13 02:50] VITALS: BP 121/56; PULSE 78; RESP 16; TEMP 36.6; O2SAT 93
[2023-01-13 07:09] VITALS: BP 123/68; PULSE 80; RESP 18; TEMP 36.3; O2SAT 92
[2023-01-13 07:28] LABS: Glucose, Whole Blood 171 mg/dL (60-115)
[2023-01-13] MEDS: Tamsulosin HCL 0.4 MG CAPSULE 0.8 MG PO (08:08)
[2023-01-13] MEDS: 0.9 % Sodium Chloride Flush 3 ML SYRINGE IVFLUSH ×3 (08:08→20:26)
[2023-01-13] MEDS: Insulin Lispro 100 UNIT/ML 3 ML VIAL SUBCUT ×2 (08:09→21:47)
[2023-01-13] MEDS: metFORMIN HCl ER 500 MG TAB.ER.24H 2000 MG PO (08:09)
[2023-01-13] MEDS: Bicalutamide 50 MG TABLET PO ×3 (08:09→20:25)
[2023-01-13] MEDS: Apixaban 2.5 MG TABLET PO ×2 (08:09→20:22)
[2023-01-13] MEDS: Finasteride 5 MG TABLET PO (08:09)
[2023-01-13] MEDS: Metoprolol Tartrate 25 MG TABLET PO ×2 (08:09→20:25)
[2023-01-13] MEDS: amLODIPine Besylate 5 MG TABLET PO (08:09)
--- NOTE | 2023-01-13 10:46 | P.PNIM_ITS ---
Subjective Subjective Date of Service: 01/13/23 Interval History: Seen and evaluated this morning laying comfortable in his bed pain under fair control No other overnight events Review of Systems Review of Systems: Yes all other systems are reviewed and are negative Physical Exam Vital Signs: Vital Signs: Last Vital Signs Temp 97.3 F 01/13/23 07:09 Pulse 80 01/13/23 07:09 Resp 18 01/13/23 07:09 BP 123/68 01/13/23 07:09 Pulse Ox 92 01/13/23 07:09 O2 Del Method Room Air 01/13/23 07:09 O2 Flow Rate 4 01/10/23 18:16 Oxygen Flow Rate 3 01/10/23 18:20 BMI result Body Mass Index 24.2 Const: Other: General: AO X 2, no acute distress Resp:? CTA bilateral CVS: S1,S2,irregular irregular GI: +BS, NT, no distention Skin: No rash, Mclaughlin in place Neuro:? motor grossly intact Psych: appropriate affect Objective Data Active Medications Acetaminophen (Acetaminophen 325 Mg Tablet) 650 mg PO Q6H PRN PRN Reason: Pain, Mild (Pain Scale 1-3) Last Admin: 01/12/23 21:55 Dose: 650 mg Documented By: KUMAR Acetaminophen (Acetaminophen 325 Mg Tablet) 650 mg PO ONCE PRN PRN Reason: Pain, Mild (Pain Scale 1-3) Amlodipine Besylate (Amlodipine Besylate 5 Mg Tablet) 5 mg PO DAILY [facility]; Protocol Last Admin: 01/13/23 08:09 Dose: 5 mg Documented By: REZA Apixaban (Apixaban 2.5 Mg Tablet) 2.5 mg PO BID [facility] Last Admin: 01/13/23 08:09 Dose: 2.5 mg Documented By: REZA Bicalutamide (Bicalutamide 50 Mg Tablet) 50 mg PO TID [facility] Last Admin: 01/13/23 08:09 Dose: 50 mg Documented By: REZA Docusate Sodium (Docusate Sodium 100 Mg Capsule) 100 mg PO DAILY PRN PRN Reason: Constipation Last Admin: 01/05/23 08:05 Dose: 100 mg Documented By: RIOSCEL Fentanyl (Fentanyl Citrate/Pf 100 Mcg/2 Ml Vial) 25 mcg IVPUSH Q5M PRN; Protocol PRN Reason: Pain, Moderate(Pain Scale 4-6) Finasteride (Finasteride 5 Mg Tablet) 5 mg PO DAILY [facility] Last Admin: 01/13/23 08:09 Dose: 5 mg Documented By: REZA Glucose (Glucose Gel 15 Gm Gel..Gram.) 15 gm PO Q15M PRN; Protocol PRN Reason: per Hypoglycemia Standing Ord. Dextrose (D10) 250 mls @ 750 mls/hr IV Q15M PRN; Protocol PRN Reason: per Hypoglycemia Standing Ord. Insulin Human Lispro (Insulin Lispro 100 Unit/Ml 3 Ml Vial) 0 unit SUBCUT QIDACHS [facility]; Protocol Last Admin: 01/13/23 08:09 Dose: 2 unit Documented By: REZA Metformin HCl (Metformin Hcl Er 500 Mg Tab.Er.24h) 2,000 mg PO DAILY [facility] Last Admin: 01/13/23 08:09 Dose: 2,000 mg Documented By: REZA Metoprolol Tartrate (Metoprolol Tartrate 25 Mg Tablet) 25 mg PO BID [facility]; Protocol Last Admin: 01/13/23 08:09 Dose: 25 mg Documented By: REZA Olanzapine (Olanzapine 10 Mg Vial) 5 mg IM DAILY PRN PRN Reason: agitation Ondansetron HCl (Ondansetron Hcl 4 Mg/2 Ml Vial) 4 mg IVPUSH Q8H PRN PRN Reason: Nausea and Vomiting Ondansetron HCl (Ondansetron Hcl 4 Mg/2 Ml Vial) 4 mg IVPUSH ONCE PRN PRN Reason: Nausea and Vomiting Oxycodone HCl (Oxycodone Hcl Immed Release 5 Mg Tablet) 5 mg PO Q4H PRN PRN Reason: Pain, Severe (Pain Scale 7-10) Last Admin: 01/11/23 12:13 Dose: 5 mg Documented By: ROBERT Pharmacy Consult (Consult Rx Perform Med Rec) 1 each MISCELLANE ONCE PRN PRN Reason: Consult order Pravastatin Sodium (Pravastatin Sodium 40 Mg Tablet) 40 mg PO BEDTIME [facility] Last Admin: 01/12/23 21:55 Dose: 40 mg Documented By: KUMAR Sodium Chloride (0.9 % Sodium Chloride Flush 3 Ml Syringe) 3 ml IVFLUSH QSHIFT [facility] Last Admin: 01/13/23 08:08 Dose: 3 ml Documented By: REZA Tamsulosin HCl (Tamsulosin Hcl 0.4 Mg Capsule) 0.8 mg PO DAILY [facility] Last Admin: 01/13/23 08:08 Dose: 0.8 mg Documented By: REZA Labs 01/04/23 05:31 01/10/23 05:19 Labs: Laboratory Results - last 24 hr 01/12/23 01/12/23 01/12/23 11:31 16:17 20:33 POC Glucose 143 H 141 H 224 H 01/13/23 07:07 POC Glucose 171 H Assessment and Plan (1) Prostate cancer: Status: Acute (2) Pain due to malignant neoplasm metastatic to bone: Status: Acute (3) Metastasis to bone: Status: Acute Plan An 82M PMH paroxysmal afib on eliquis, DM, prostate ca, presented with weakness, mickey 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 Oxycodone prn for pain Paroxysmal afib with rvr better controlled continue eliquis On metoprolol, 25 mg bid Cognitive disorder 2/2 acute delerium vs chronic dementia +/- delerium Could be related to metastatic cancer to brain, will be difficult to get an MRI on him given his unwillingness to follow commands, will discuss best options with oncology and HCP psychiatry appreciated, currently patient lack capacity to make most medical decisions and unlikely to be able to live safely independently OT eval for MoCA and ACLS, to assess his level of cognitive impairment and need for supportive services for independent living Outpatient dementia eval by neuro referral 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 BPH Cr back to baseline after Mclaughlin placement renal us with mild bilateral hydro nephro eval avoid nephrotoxic meds physical deconditioning Needs LTC at this point per PT dm insulin uti completed ceftin weakness refusing pt eval prostate ca gu eval dvt prophylaxis - eliquis full code reason for continued hospitalization: pending safe discharge to SNF Time Spent With Patient Time: Total time managing care of this patient today ____ minutes. Quality Stroke Does the patient have a stroke diagnosis?: No VTE Prior VTE?: No VTE Risk Level:: Medical - moderate - high VTE Device Contraindication: Treatment Not Indicated VTE Drug Contraindication: N/A - Med Ordered
[2023-01-13 11:30] LABS: Glucose, Whole Blood 144 mg/dL (60-115)
--- NOTE | 2023-01-13 14:26 | MHC.CM.PN ---
[facility] IS ASKING WHAT THE TREATMENT PLAN WILL BE ONCE DIAGNOSIS IS CONFIRMED. CURRENT PLAN IS HORMONAL THERAPY AND CM WILL REVIEW ONCE CONFIRMATION IS MADE. UPDATES SENT TO [facility]IA [employer]
[2023-01-13 15:13] VITALS: BP 155/68; PULSE 97; RESP 20; TEMP 36.8; O2SAT 97
[2023-01-13 16:10] LABS: Glucose, Whole Blood 158 mg/dL (60-115)
[2023-01-13] MEDS: oxyCODONE HCl Immed Release 5 MG TABLET PO (16:21)
[2023-01-13 17:57] VITALS: BP 133/79; PULSE 98; RESP 20; TEMP 36.8
[2023-01-13 20:00] VITALS: BP 150/77; PULSE 83; RESP 18; TEMP 36.5; O2SAT 96
[2023-01-13] MEDS: Pravastatin Sodium 40 MG TABLET PO (20:22)
[2023-01-13] MEDS: Acetaminophen 325 MG TABLET 650 MG PO (20:24)
[2023-01-13 20:59] LABS: Glucose, Whole Blood 178 mg/dL (60-115)
[2023-01-14 04:00] VITALS: BP 150/66; PULSE 77; RESP 18; TEMP 36.2; O2SAT 98
[2023-01-14 07:32] VITALS: BP 121/68; PULSE 81; RESP 20; TEMP 36.3; O2SAT 98
[2023-01-14 07:46] LABS: Glucose, Whole Blood 133 mg/dL (60-115)
[2023-01-14] MEDS: Finasteride 5 MG TABLET PO (08:24)
[2023-01-14] MEDS: 0.9 % Sodium Chloride Flush 3 ML SYRINGE IVFLUSH ×3 (08:24→21:15)
[2023-01-14] MEDS: Bicalutamide 50 MG TABLET PO ×3 (08:24→21:12)
[2023-01-14] MEDS: Metoprolol Tartrate 25 MG TABLET PO ×2 (08:25→21:12)
[2023-01-14] MEDS: Apixaban 2.5 MG TABLET PO ×2 (08:25→21:12)
[2023-01-14] MEDS: amLODIPine Besylate 5 MG TABLET PO (08:25)
[2023-01-14] MEDS: metFORMIN HCl ER 500 MG TAB.ER.24H 2000 MG PO (08:25)
[2023-01-14] MEDS: Tamsulosin HCL 0.4 MG CAPSULE 0.8 MG PO (08:38)
--- NOTE | 2023-01-14 11:28 | MHC.CM.PN ---
STILL AWAITING PATHOLOGY FOR ONGOING PLAN OF CARE AT NEXT LEVEL
[2023-01-14 11:30] LABS: Glucose, Whole Blood 201 mg/dL (60-115)
--- NOTE | 2023-01-14 12:04 | MHC.CLN ---
F/U DIET=DIABETIC 2000 KCALS. ENSURE MAX TID TO PROVIDE ADDITIONAL 450 KCALS, 90 G PROTEIN TO PROMOTE WOUND HEALING. CONTINUES WITH USUALLY GOOD INTAKE AT MEALS, WITH MANY MEALS 100%. FOLLOW FOR INTAKE AND WOUND HEALING.
[2023-01-14 15:23] VITALS: BP 134/62; PULSE 75; RESP 18; TEMP 37.3; O2SAT 99
[2023-01-14 16:08] LABS: Glucose, Whole Blood 179 mg/dL (60-115)
[2023-01-14] MEDS: Insulin Lispro 100 UNIT/ML 3 ML VIAL SUBCUT (17:00)
[2023-01-14 20:00] VITALS: BP 113/60; PULSE 82; RESP 19; TEMP 36.3; O2SAT 94
[2023-01-14 20:35] LABS: Glucose, Whole Blood 139 mg/dL (60-115)
[2023-01-14] MEDS: Pravastatin Sodium 40 MG TABLET PO (21:12)
[2023-01-15 03:00] VITALS: BP 119/58; PULSE 84; RESP 17; TEMP 36.3; O2SAT 96
--- NOTE | 2023-01-15 07:22 | HO.PM.IMPN ---
Subjective Subjective Date of Service: 01/14/23 Interval History: Seen and examined at bedside. He is slightly more confused this morning but stable. Denies any chest pain, no abdominal pain, no nausea or vomiting, no diarrhea constipation. No overnight events. Review of Systems On review of system otherwise negative if can be relied on Physical Exam Vital Signs: Vital Signs: Last Vital Signs Temp 97.3 F 01/15/23 03:00 Pulse 84 01/15/23 03:00 Resp 17 01/15/23 03:00 BP 119/58 L 01/15/23 03:00 Pulse Ox 96 01/15/23 03:00 O2 Del Method Room Air 01/15/23 03:00 O2 Flow Rate 4 01/10/23 18:16 Oxygen Flow Rate 3 01/10/23 18:20 BMI result Body Mass Index 24.2 Const: Other: Alert to self otherwise confused Resp: Other: Normal respiratory rate, clear to auscultation Cardio: Other: Irregular rhythm normal rate GI: Other: Abdomen is soft, nontender Neuro: Other: Confused Extrem: Other: No lower extremity edema Objective Data Active Medications Acetaminophen (Acetaminophen 325 Mg Tablet) 650 mg PO Q6H PRN PRN Reason: Pain, Mild (Pain Scale 1-3) Last Admin: 01/13/23 20:24 Dose: 650 mg Documented By: LANE Acetaminophen (Acetaminophen 325 Mg Tablet) 650 mg PO ONCE PRN PRN Reason: Pain, Mild (Pain Scale 1-3) Amlodipine Besylate (Amlodipine Besylate 5 Mg Tablet) 5 mg PO DAILY [facility]; Protocol Last Admin: 01/14/23 08:25 Dose: 5 mg Documented By: REZA Apixaban (Apixaban 2.5 Mg Tablet) 2.5 mg PO BID [facility] Last Admin: 01/14/23 21:12 Dose: 2.5 mg Documented By: DOLORES Bicalutamide (Bicalutamide 50 Mg Tablet) 50 mg PO TID [facility] Last Admin: 01/14/23 21:12 Dose: 50 mg Documented By: DOLORES Docusate Sodium (Docusate Sodium 100 Mg Capsule) 100 mg PO DAILY PRN PRN Reason: Constipation Last Admin: 01/05/23 08:05 Dose: 100 mg Documented By: MIKE Fentanyl (Fentanyl Citrate/Pf 100 Mcg/2 Ml Vial) 25 mcg IVPUSH Q5M PRN; Protocol PRN Reason: Pain, Moderate(Pain Scale 4-6) Finasteride (Finasteride 5 Mg Tablet) 5 mg PO DAILY [facility] Last Admin: 01/14/23 08:24 Dose: 5 mg Documented By: REZA Glucose (Glucose Gel 15 Gm Gel..Gram.) 15 gm PO Q15M PRN; Protocol PRN Reason: per Hypoglycemia Standing Ord. Dextrose (D10) 250 mls @ 750 mls/hr IV Q15M PRN; Protocol PRN Reason: per Hypoglycemia Standing Ord. Insulin Human Lispro (Insulin Lispro 100 Unit/Ml 3 Ml Vial) 0 unit SUBCUT QIDACHS [facility]; Protocol Last Admin: 01/14/23 21:09 Dose: Not Given Documented By: DOLORES Non-Admin Reason: No Insulin Coverage Metformin HCl (Metformin Hcl Er 500 Mg Tab.Er.24h) 2,000 mg PO DAILY [facility] Last Admin: 01/14/23 08:25 Dose: 2,000 mg Documented By: REZA Metoprolol Tartrate (Metoprolol Tartrate 25 Mg Tablet) 25 mg PO BID [facility]; Protocol Last Admin: 01/14/23 21:12 Dose: 25 mg Documented By: DOLORES Olanzapine (Olanzapine 10 Mg Vial) 5 mg IM DAILY PRN PRN Reason: agitation Ondansetron HCl (Ondansetron Hcl 4 Mg/2 Ml Vial) 4 mg IVPUSH Q8H PRN PRN Reason: Nausea and Vomiting Ondansetron HCl (Ondansetron Hcl 4 Mg/2 Ml Vial) 4 mg IVPUSH ONCE PRN PRN Reason: Nausea and Vomiting Oxycodone HCl (Oxycodone Hcl Immed Release 5 Mg Tablet) 5 mg PO Q4H PRN PRN Reason: Pain, Severe (Pain Scale 7-10) Last Admin: 01/13/23 16:21 Dose: 5 mg Documented By: REZA Pharmacy Consult (Consult Rx Perform Med Rec) 1 each MISCELLANE ONCE PRN PRN Reason: Consult order Pravastatin Sodium (Pravastatin Sodium 40 Mg Tablet) 40 mg PO BEDTIME [facility] Last Admin: 01/14/23 21:12 Dose: 40 mg Documented By: DOLORES Sodium Chloride (0.9 % Sodium Chloride Flush 3 Ml Syringe) 3 ml IVFLUSH QSHIFT [facility] Last Admin: 01/14/23 21:15 Dose: 3 ml Documented By: DOLORES Tamsulosin HCl (Tamsulosin Hcl 0.4 Mg Capsule) 0.8 mg PO DAILY [facility] Last Admin: 01/14/23 08:38 Dose: 0.8 mg Documented By: REZA Labs 01/04/23 05:31 01/10/23 05:19 Labs: Laboratory Results - last 24 hr 01/14/23 01/14/23 01/14/23 07:28 11:01 16:01 POC Glucose 133 H 201 H 179 H 01/14/23 20:30 POC Glucose 139 H Assessment and Plan (1) Atrial fibrillation with rapid ventricular response: Status: Acute (2) Prostate cancer: Status: Acute (3) Metabolic encephalopathy: Status: Acute (4) ANTONELLA (acute kidney injury): Status: Acute Plan An 82M PMH paroxysmal afib on eliquis, DM, prostate ca, presented with weakness, antonella found to have prostate cancer #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 - Oxycodone prn for pain # Paroxysmal afib with rvr - rate controlled currently, continue Eliquis and metoprolol # metabolic encephalopathy likely 2/2 acute delerium vs chronic dementia +/- delerium - Could be related to metastatic cancer to brain, will be difficult to get an MRI on him given his unwillingness to follow commands, will discuss best options with oncology and HCP - psychiatry appreciated, currently patient lack capacity to make most medical decisions and unlikely to be able to live safely independently - OT eval for MoCA and ACLS, to assess his level of cognitive impairment and need for supportive services for independent living - Outpatient dementia eval by neuro referral # 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 BPH - resolved after Mclaughlin placement - follow BMP - avoid nephrotoxic meds # physical deconditioning - Needs LTC at this point per PT dm insulin uti completed ceftin weakness refusing pt eval prostate ca gu eval dvt prophylaxis - eliquis full code reason for continued hospitalization: pending safe discharge to SNF Time Spent With Patient Time: Total time managing care of this patient today ____ minutes. Quality Stroke Does the patient have a stroke diagnosis?: No VTE Prior VTE?: No VTE Risk Level:: Medical - moderate - high VTE Device Contraindication: Treatment Not Indicated VTE Drug Contraindication: N/A - Med Ordered
--- NOTE | 2023-01-15 07:36 | HO.PM.IMPN ---
Subjective Subjective Date of Service: 01/15/23 Interval History: pt slept well, oriented to self and place, answering questions appropriately. eating in bed. No acute complaint. Sllightly grouchy but otherwise denies any cp, abd pain, no urinary symptoms. Physical Exam Vital Signs: Vital Signs: Last Vital Signs Temp 97.3 F 01/15/23 03:00 Pulse 84 01/15/23 03:00 Resp 17 01/15/23 03:00 BP 119/58 L 01/15/23 03:00 Pulse Ox 96 01/15/23 03:00 O2 Del Method Room Air 01/15/23 03:00 O2 Flow Rate 4 01/10/23 18:16 Oxygen Flow Rate 3 01/10/23 18:20 BMI result Body Mass Index 24.2 Const: Other: awake, alert, orientedx 2 Resp: Other: normal resp rate and effort Cardio: Other: irregular rhythm, normal rate Neuro: Other: no lower extremity edema Extrem: Other: no edema Objective Data Active Medications Acetaminophen (Acetaminophen 325 Mg Tablet) 650 mg PO Q6H PRN PRN Reason: Pain, Mild (Pain Scale 1-3) Last Admin: 01/13/23 20:24 Dose: 650 mg Documented By: LANE Acetaminophen (Acetaminophen 325 Mg Tablet) 650 mg PO ONCE PRN PRN Reason: Pain, Mild (Pain Scale 1-3) Amlodipine Besylate (Amlodipine Besylate 5 Mg Tablet) 5 mg PO DAILY [facility]; Protocol Last Admin: 01/14/23 08:25 Dose: 5 mg Documented By: REZA Apixaban (Apixaban 2.5 Mg Tablet) 2.5 mg PO BID [facility] Last Admin: 01/14/23 21:12 Dose: 2.5 mg Documented By: DOLORES Bicalutamide (Bicalutamide 50 Mg Tablet) 50 mg PO TID [facility] Last Admin: 01/14/23 21:12 Dose: 50 mg Documented By: DOLORES Docusate Sodium (Docusate Sodium 100 Mg Capsule) 100 mg PO DAILY PRN PRN Reason: Constipation Last Admin: 01/05/23 08:05 Dose: 100 mg Documented By: RIOSCEL Fentanyl (Fentanyl Citrate/Pf 100 Mcg/2 Ml Vial) 25 mcg IVPUSH Q5M PRN; Protocol PRN Reason: Pain, Moderate(Pain Scale 4-6) Finasteride (Finasteride 5 Mg Tablet) 5 mg PO DAILY [facility] Last Admin: 01/14/23 08:24 Dose: 5 mg Documented By: REZA Glucose (Glucose Gel 15 Gm Gel..Gram.) 15 gm PO Q15M PRN; Protocol PRN Reason: per Hypoglycemia Standing Ord. Dextrose (D10) 250 mls @ 750 mls/hr IV Q15M PRN; Protocol PRN Reason: per Hypoglycemia Standing Ord. Insulin Human Lispro (Insulin Lispro 100 Unit/Ml 3 Ml Vial) 0 unit SUBCUT QIDACHS [facility]; Protocol Last Admin: 01/14/23 21:09 Dose: Not Given Documented By: DOLORES Non-Admin Reason: No Insulin Coverage Metformin HCl (Metformin Hcl Er 500 Mg Tab.Er.24h) 2,000 mg PO DAILY [facility] Last Admin: 01/14/23 08:25 Dose: 2,000 mg Documented By: REZA Metoprolol Tartrate (Metoprolol Tartrate 25 Mg Tablet) 25 mg PO BID [facility]; Protocol Last Admin: 01/14/23 21:12 Dose: 25 mg Documented By: DOLORES Olanzapine (Olanzapine 10 Mg Vial) 5 mg IM DAILY PRN PRN Reason: agitation Ondansetron HCl (Ondansetron Hcl 4 Mg/2 Ml Vial) 4 mg IVPUSH Q8H PRN PRN Reason: Nausea and Vomiting Ondansetron HCl (Ondansetron Hcl 4 Mg/2 Ml Vial) 4 mg IVPUSH ONCE PRN PRN Reason: Nausea and Vomiting Oxycodone HCl (Oxycodone Hcl Immed Release 5 Mg Tablet) 5 mg PO Q4H PRN PRN Reason: Pain, Severe (Pain Scale 7-10) Last Admin: 01/13/23 16:21 Dose: 5 mg Documented By: REZA Pharmacy Consult (Consult Rx Perform Med Rec) 1 each MISCELLANE ONCE PRN PRN Reason: Consult order Pravastatin Sodium (Pravastatin Sodium 40 Mg Tablet) 40 mg PO BEDTIME [facility] Last Admin: 01/14/23 21:12 Dose: 40 mg Documented By: DOLORES Sodium Chloride (0.9 % Sodium Chloride Flush 3 Ml Syringe) [facility] Last Admin: 01/14/23 21:15 Dose: 3 ml Documented By: DOLORES Tamsulosin HCl (Tamsulosin Hcl 0.4 Mg Capsule) 0.8 mg PO DAILY [facility] Last Admin: 01/14/23 08:38 Dose: 0.8 mg Documented By: REZA Labs 01/04/23 05:31 01/10/23 05:19 Labs: Laboratory Results - last 24 hr 01/14/23 01/14/23 01/14/23 07:28 11:01 16:01 POC Glucose 133 H 201 H 179 H 01/14/23 20:30 POC Glucose 139 H Assessment and Plan (1) Metabolic encephalopathy: Status: Acute (2) Atrial fibrillation with rapid ventricular response: Status: Acute (3) Prostate cancer: Status: Acute (4) Weakness: Status: Acute (5) ANTONELLA (acute kidney injury): Status: Acute Plan An 82M PMH paroxysmal afib on eliquis, DM, prostate ca, presented with weakness, antonella found to have prostate cancer #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 - Oxycodone prn for pain # Paroxysmal afib with rvr - rate controlled currently, continue Eliquis and metoprolol # metabolic encephalopathy likely 2/2 acute delerium vs chronic dementia +/- delerium - improved this am - Could be related to metastatic cancer to brain - psychiatry appreciated, currently patient lack capacity to make most medical decisions and unlikely to be able to live safely independently - OT eval for MoCA and ACLS, to assess his level of cognitive impairment and need for supportive services for independent living - Outpatient dementia eval by neuro referral # 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 BPH - resolved after Mclauglhin placement - follow BMP - avoid nephrotoxic meds # physical deconditioning - Needs LTC at this point per PT dm insulin uti completed ceftin weakness refusing pt eval prostate ca gu eval dvt prophylaxis - eliquis full code reason for continued hospitalization: pending safe discharge to SNFand pathology reprt Time Spent With Patient Time: Total time managing care of this patient today ____ minutes. Quality Stroke Does the patient have a stroke diagnosis?: No VTE Prior VTE?: No VTE Risk Level:: Medical - moderate - high VTE Device Contraindication: Treatment Not Indicated VTE Drug Contraindication: N/A - Med Ordered
[2023-01-15 07:43] LABS: Glucose, Whole Blood 180 mg/dL (60-115)
[2023-01-15 07:56] VITALS: BP 151/94; PULSE 83; RESP 17; TEMP 36.5; O2SAT 94
[2023-01-15] MEDS: Apixaban 2.5 MG TABLET PO ×2 (08:13→22:38)
[2023-01-15] MEDS: Tamsulosin HCL 0.4 MG CAPSULE 0.8 MG PO (08:13)
[2023-01-15] MEDS: amLODIPine Besylate 5 MG TABLET PO (08:14)
[2023-01-15] MEDS: Metoprolol Tartrate 25 MG TABLET PO ×2 (08:14→22:34)
[2023-01-15] MEDS: Bicalutamide 50 MG TABLET PO ×2 (08:15→22:38)
[2023-01-15] MEDS: Finasteride 5 MG TABLET PO (08:15)
[2023-01-15] MEDS: metFORMIN HCl ER 500 MG TAB.ER.24H 2000 MG PO (08:15)
[2023-01-15 11:21] LABS: Glucose, Whole Blood 197 mg/dL (60-115)
[2023-01-15] MEDS: Insulin Lispro 100 UNIT/ML 3 ML VIAL SUBCUT (12:20)
[2023-01-15] MEDS: oxyCODONE HCl Immed Release 5 MG TABLET PO (12:43)
[2023-01-15 15:19] VITALS: BP 118/62; PULSE 73; RESP 17; TEMP 36.8; O2SAT 97
[2023-01-15] MEDS: 0.9 % Sodium Chloride Flush 3 ML SYRINGE IVFLUSH ×2 (15:45→22:40)
[2023-01-15 16:33] LABS: Glucose, Whole Blood 112 mg/dL (60-115)
[2023-01-15 19:47] VITALS: BP 122/58; PULSE 95; RESP 17; TEMP 36.5; O2SAT 93
[2023-01-15 21:02] LABS: Glucose, Whole Blood 146 mg/dL (60-115)
[2023-01-15] MEDS: Pravastatin Sodium 40 MG TABLET PO (22:35)
[2023-01-16 04:07] VITALS: BP 132/63; PULSE 80; RESP 19; TEMP 36.8; O2SAT 98
[2023-01-16 07:22] VITALS: BP 143/62; PULSE 77; RESP 15; TEMP 36.3; O2SAT 97
[2023-01-16 07:34] LABS: Glucose, Whole Blood 135 mg/dL (60-115)
[2023-01-16 08:54] LABS: Anion Gap 14 (12-20); Blood Urea Nitrogen 23 mg/dL (9-16); Calcium 8.5 mg/dL (8.4-10.2); Carbon Dioxide 24 mmol/L (22-29); Chloride 103 mmol/L (96-108); Creatinine Clr Calc Pharmacy 55.7; Estimated Glomerular Filt Rate > 60; Glucose Random 159 mg/dL (60-115); Potassium 3.7 mmol/L (3.3-5.1); Sodium 137 mmol/L (135-145)
[2023-01-16] MEDS: 0.9 % Sodium Chloride Flush 3 ML SYRINGE IVFLUSH ×3 (09:15→20:43)
[2023-01-16] MEDS: amLODIPine Besylate 5 MG TABLET PO (09:16)
[2023-01-16] MEDS: Tamsulosin HCL 0.4 MG CAPSULE 0.8 MG PO (09:16)
[2023-01-16] MEDS: metFORMIN HCl ER 500 MG TAB.ER.24H 2000 MG PO (09:16)
[2023-01-16] MEDS: Apixaban 2.5 MG TABLET PO ×2 (09:16→20:43)
[2023-01-16] MEDS: Metoprolol Tartrate 25 MG TABLET PO ×2 (09:16→20:42)
[2023-01-16] MEDS: Bicalutamide 50 MG TABLET PO ×3 (09:17→20:43)
[2023-01-16] MEDS: Finasteride 5 MG TABLET PO (09:17)
[2023-01-16 11:21] LABS: Glucose, Whole Blood 196 mg/dL (60-115)
--- NOTE | 2023-01-16 12:19 | HO.PM.IMPN ---
Subjective Subjective Date of Service: 01/16/23 Interval History: Seen and evaluated this morning laying comfortable in his bed pain under fair control No other overnight events Review of Systems Review of Systems: Yes all other systems are reviewed and are negative Physical Exam Vital Signs: Vital Signs: Last Vital Signs Temp 97.4 F 01/16/23 07:22 Pulse 77 01/16/23 07:22 Resp 15 01/16/23 07:22 BP 143/62 H 01/16/23 07:22 Pulse Ox 97 01/16/23 07:22 O2 Del Method Room Air 01/16/23 07:22 O2 Flow Rate 4 01/10/23 18:16 Oxygen Flow Rate 3 01/10/23 18:20 BMI result Body Mass Index 24.2 Const: Other: General: AO X 2, no acute distress Resp:? CTA bilateral CVS: S1,S2,irregular irregular GI: +BS, NT, no distention Skin: No rash, Mclaughlin in place Neuro:? motor grossly intact Psych: appropriate affect Objective Data Active Medications Acetaminophen (Acetaminophen 325 Mg Tablet) 650 mg PO Q6H PRN PRN Reason: Pain, Mild (Pain Scale 1-3) Last Admin: 01/13/23 20:24 Dose: 650 mg Documented By: LANE Acetaminophen (Acetaminophen 325 Mg Tablet) 650 mg PO ONCE PRN PRN Reason: Pain, Mild (Pain Scale 1-3) Amlodipine Besylate (Amlodipine Besylate 5 Mg Tablet) 5 mg PO DAILY [facility]; Protocol Last Admin: 01/16/23 09:16 Dose: 5 mg Documented By: RYAN Apixaban (Apixaban 2.5 Mg Tablet) 2.5 mg PO BID [facility] Last Admin: 01/16/23 09:16 Dose: 2.5 mg Documented By: RYAN Bicalutamide (Bicalutamide 50 Mg Tablet) 50 mg PO TID [facility] Last Admin: 01/16/23 09:17 Dose: 50 mg Documented By: RYAN Docusate Sodium (Docusate Sodium 100 Mg Capsule) 100 mg PO DAILY PRN PRN Reason: Constipation Last Admin: 01/05/23 08:05 Dose: 100 mg Documented By: MIKE Finasteride (Finasteride 5 Mg Tablet) 5 mg PO DAILY [facility] Last Admin: 01/16/23 09:17 Dose: 5 mg Documented By: RYAN Glucose (Glucose Gel 15 Gm Gel..Gram.) 15 gm PO Q15M PRN; Protocol PRN Reason: per Hypoglycemia Standing Ord. Dextrose (D10) 250 mls @ 750 mls/hr IV Q15M PRN; Protocol PRN Reason: per Hypoglycemia Standing Ord. Insulin Human Lispro (Insulin Lispro 100 Unit/Ml 3 Ml Vial) 0 unit SUBCUT QIDACHS [facility]; Protocol Last Admin: 01/16/23 11:56 Dose: Not Given Documented By: RYAN Non-Admin Reason: Patient Refused Metformin HCl (Metformin Hcl Er 500 Mg Tab.Er.24h) 2,000 mg PO DAILY [facility] Last Admin: 01/16/23 09:16 Dose: 2,000 mg Documented By: RYAN Metoprolol Tartrate (Metoprolol Tartrate 25 Mg Tablet) 25 mg PO BID [facility]; Protocol Last Admin: 01/16/23 09:16 Dose: 25 mg Documented By: RYAN Olanzapine (Olanzapine 10 Mg Vial) 5 mg IM DAILY PRN PRN Reason: agitation Ondansetron HCl (Ondansetron Hcl 4 Mg/2 Ml Vial) 4 mg IVPUSH Q8H PRN PRN Reason: Nausea and Vomiting Ondansetron HCl (Ondansetron Hcl 4 Mg/2 Ml Vial) 4 mg IVPUSH ONCE PRN PRN Reason: Nausea and Vomiting Pharmacy Consult (Consult Rx Perform Med Rec) 1 each MISCELLANE ONCE PRN PRN Reason: Consult order Pravastatin Sodium (Pravastatin Sodium 40 Mg Tablet) 40 mg PO BEDTIME [facility] Last Admin: 01/15/23 22:35 Dose: 40 mg Documented By: LUIS DANIEL Sodium Chloride (0.9 % Sodium Chloride Flush 3 Ml Syringe) 3 ml IVFLUSH QSHIFT [facility] Last Admin: 01/16/23 09:15 Dose: 3 ml Documented By: RYAN Tamsulosin HCl (Tamsulosin Hcl 0.4 Mg Capsule) 0.8 mg PO DAILY [facility] Last Admin: 01/16/23 09:16 Dose: 0.8 mg Documented By: RYAN Labs 01/04/23 05:31 01/16/23 08:14 Labs: Laboratory Results - last 24 hr 06/24/23 06/24/23 06/25/23 16:24 20:52 07:26 Anion Gap Estim Creat Clear Calc Estimated GFR POC Glucose 112 146 H 135 H Random Glucose Calcium 01/16/23 01/16/23 08:14 11:14 Anion Gap 14 Estim Creat Clear Calc 55.7 Estimated GFR > 60 POC Glucose 196 H Random Glucose 159 H Calcium 8.5 Assessment and Plan (1) Cognitive disorder: Status: Acute (2) Metastasis to bone: Status: Acute (3) ANTONELLA (acute kidney injury): Status: Acute Plan An 82M PMH paroxysmal afib on eliquis, DM, prostate ca, presented with weakness, antonella found to have prostate cancer #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 - Oxycodone prn for pain # Paroxysmal afib with rvr - rate controlled currently, continue Eliquis and metoprolol # metabolic encephalopathy likely 2/2 acute delerium vs chronic dementia +/- delerium - improved this am - Could be related to metastatic cancer to brain - psychiatry appreciated, currently patient lack capacity to make most medical decisions and unlikely to be able to live safely independently - OT eval for MoCA and ACLS, to assess his level of cognitive impairment and need for supportive services for independent living - Outpatient dementia eval by neuro referral # 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 BPH - resolved after Mclaughlin placement - follow BMP - avoid nephrotoxic meds # physical deconditioning - Needs LTC at this point per PT dm insulin uti completed ceftin weakness refusing pt eval prostate ca gu eval dvt prophylaxis - eliquis full code reason for continued hospitalization: pending safe discharge to SNFand pathology reprt Time Spent With Patient Time: Total time managing care of this patient today ____ minutes. Quality Stroke Does the patient have a stroke diagnosis?: No VTE Prior VTE?: No VTE Risk Level:: Medical - moderate - high VTE Device Contraindication: Treatment Not Indicated VTE Drug Contraindication: N/A - Med Ordered
[2023-01-16 15:41] VITALS: BP 112/64; PULSE 84; RESP 18; TEMP 36.2; O2SAT 99
[2023-01-16 16:32] LABS: Glucose, Whole Blood 167 mg/dL (60-115)
[2023-01-16] MEDS: Insulin Lispro 100 UNIT/ML 3 ML VIAL SUBCUT (16:53)
[2023-01-16 19:43] VITALS: BP 125/60; PULSE 85; RESP 18; TEMP 36.3; O2SAT 95
[2023-01-16 20:36] LABS: Glucose, Whole Blood 95 mg/dL (60-115)
[2023-01-16] MEDS: Pravastatin Sodium 40 MG TABLET PO (20:42)
[2023-01-17 03:41] VITALS: BP 149/74; PULSE 84; RESP 18; TEMP 36.2; O2SAT 93
[2023-01-17] MEDS: Acetaminophen 325 MG TABLET 650 MG PO ×2 (05:30→21:15)
[2023-01-17 07:10] VITALS: BP 139/70; PULSE 85; RESP 17; TEMP 36.3; O2SAT 96
[2023-01-17 07:24] LABS: Glucose, Whole Blood 143 mg/dL (60-115)
[2023-01-17] MEDS: Finasteride 5 MG TABLET PO (08:39)
[2023-01-17] MEDS: Apixaban 2.5 MG TABLET PO ×2 (08:39→21:15)
[2023-01-17] MEDS: Metoprolol Tartrate 25 MG TABLET PO ×2 (08:39→22:24)
[2023-01-17] MEDS: Bicalutamide 50 MG TABLET PO ×3 (08:39→21:16)
[2023-01-17] MEDS: amLODIPine Besylate 5 MG TABLET PO (08:39)
[2023-01-17] MEDS: Tamsulosin HCL 0.4 MG CAPSULE 0.8 MG PO (08:39)
[2023-01-17] MEDS: metFORMIN HCl ER 500 MG TAB.ER.24H 2000 MG PO (08:39)
[2023-01-17] MEDS: 0.9 % Sodium Chloride Flush 3 ML SYRINGE IVFLUSH ×3 (08:40→21:14)
--- NOTE | 2023-01-17 08:42 | MHC.CM.PN ---
PER CONVERSATION WITH [facility] [employer], LTC APPLICATION WAS FAXED IN ON Tuesday01/13/23 CASE MANAGEMENT CONTINUING TO FOLLOW
--- NOTE | 2023-01-17 10:08 | MHC.CLN ---
F/U CONSULT FOR SKIN INTEGRITY. STAGE II TO COCCYX, REDNESS TO BILATERAL HEELS. DIET=DIABETIC 2000 KCALS. ENSURE MAX TID TO PROVIDE ADDITIONAL 450 KCALS, 90 G PROTEIN TO PROMOTE WOUND HEALING. CONTINUES WITH USUALLY GOOD INTAKE AT MEALS, WITH MANY MEALS 100%. FOLLOW FOR INTAKE AND WOUND HEALING.
[2023-01-17 11:24] LABS: Glucose, Whole Blood 173 mg/dL (60-115)
[2023-01-17] MEDS: Insulin Lispro 100 UNIT/ML 3 ML VIAL SUBCUT (11:40)
--- NOTE | 2023-01-17 12:12 | P.PNIM_ITS ---
Subjective Subjective Date of Service: 01/17/23 Interval History: Seen and evaluated this morning laying comfortable in his bed pain under fair control No other overnight events Review of Systems Review of Systems: Yes all other systems are reviewed and are negative Physical Exam Vital Signs: Vital Signs: Last Vital Signs Temp 97.3 F 01/17/23 07:10 Pulse 85 01/17/23 07:10 Resp 17 01/17/23 07:10 BP 139/70 01/17/23 07:10 Pulse Ox 96 01/17/23 07:10 O2 Del Method Room Air 01/17/23 07:10 O2 Flow Rate 4 01/10/23 18:16 Oxygen Flow Rate 3 01/10/23 18:20 BMI result Body Mass Index 24.2 Const: Other: General: AO X 2, no acute distress Resp:? CTA bilateral CVS: S1,S2,irregular irregular GI: +BS, NT, no distention Skin: No rash, Mclaughlin in place Neuro:? motor grossly intact Psych: appropriate affect Objective Data Active Medications Acetaminophen (Acetaminophen 325 Mg Tablet) 650 mg PO Q6H PRN PRN Reason: Pain, Mild (Pain Scale 1-3) Last Admin: 01/17/23 05:30 Dose: 650 mg Documented By: LANE Acetaminophen (Acetaminophen 325 Mg Tablet) 650 mg PO ONCE PRN PRN Reason: Pain, Mild (Pain Scale 1-3) Amlodipine Besylate (Amlodipine Besylate 5 Mg Tablet) 5 mg PO DAILY [facility]; Protocol Last Admin: 01/17/23 08:39 Dose: 5 mg Documented By: REZA Apixaban (Apixaban 2.5 Mg Tablet) 2.5 mg PO BID [facility] Last Admin: 01/17/23 08:39 Dose: 2.5 mg Documented By: REZA Bicalutamide (Bicalutamide 50 Mg Tablet) 50 mg PO TID [facility] Last Admin: 01/17/23 08:39 Dose: 50 mg Documented By: REZA Docusate Sodium (Docusate Sodium 100 Mg Capsule) 100 mg PO DAILY PRN PRN Reason: Constipation Last Admin: 01/05/23 08:05 Dose: 100 mg Documented By: RIOMAGALY Finasteride (Finasteride 5 Mg Tablet) 5 mg PO DAILY [facility] Last Admin: 01/17/23 08:39 Dose: 5 mg Documented By: REZA Glucose (Glucose Gel 15 Gm Gel..Gram.) 15 gm PO Q15M PRN; Protocol PRN Reason: per Hypoglycemia Standing Ord. Dextrose (D10) 250 mls @ 750 mls/hr IV Q15M PRN; Protocol PRN Reason: per Hypoglycemia Standing Ord. Insulin Human Lispro (Insulin Lispro 100 Unit/Ml 3 Ml Vial) 0 unit SUBCUT QIDA [facility]; Protocol Last Admin: 01/17/23 11:40 Dose: 2 unit Documented By: REZA Metformin HCl (Metformin Hcl Er 500 Mg Tab.Er.24h) 2,000 mg PO DAILY [facility] Last Admin: 01/17/23 08:39 Dose: 2,000 mg Documented By: REZA Metoprolol Tartrate (Metoprolol Tartrate 25 Mg Tablet) 25 mg PO BID [facility]; Protocol Last Admin: 01/17/23 08:39 Dose: 25 mg Documented By: REZA Olanzapine (Olanzapine 10 Mg Vial) 5 mg IM DAILY PRN PRN Reason: agitation Ondansetron HCl (Ondansetron Hcl 4 Mg/2 Ml Vial) 4 mg IVPUSH Q8H PRN PRN Reason: Nausea and Vomiting Ondansetron HCl (Ondansetron Hcl 4 Mg/2 Ml Vial) 4 mg IVPUSH ONCE PRN PRN Reason: Nausea and Vomiting Pharmacy Consult (Consult Rx Perform Med Rec) 1 each MISCELLANE ONCE PRN PRN Reason: Consult order Pravastatin Sodium (Pravastatin Sodium 40 Mg Tablet) 40 mg PO BEDTIME [facility] Last Admin: 01/16/23 20:42 Dose: 40 mg Documented By: ALNE Sodium Chloride (0.9 % Sodium Chloride Flush 3 Ml Syringe) [facility] Last Admin: 01/17/23 08:40 Dose: 3 ml Documented By: REZA Tamsulosin HCl (Tamsulosin Hcl 0.4 Mg Capsule) 0.8 mg PO DAILY [facility] Last Admin: 01/17/23 08:39 Dose: 0.8 mg Documented By: REZA Labs 01/04/23 05:31 01/16/23 08:14 Labs: Laboratory Results - last 24 hr 01/16/23 01/16/23 01/17/23 16:25 20:29 07:14 POC Glucose 167 H 95 143 H 06/26/23 11:18 POC Glucose 173 H Assessment and Plan (1) Metabolic encephalopathy: Status: Acute (2) Cognitive disorder: Status: Acute (3) Pain due to malignant neoplasm metastatic to bone: Status: Acute Plan An 82M PMH paroxysmal afib on eliquis, DM, prostate ca, presented with weakness, mickey found to have prostate cancer #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 - Oxycodone prn for pain # Paroxysmal afib with rvr - rate controlled currently, continue Eliquis and metoprolol # metabolic encephalopathy likely 2/2 acute delerium vs chronic dementia +/- delerium - improved this am - Could be related to metastatic cancer to brain - psychiatry appreciated, currently patient lack capacity to make most medical decisions and unlikely to be able to live safely independently - OT eval for MoCA and ACLS, to assess his level of cognitive impairment and need for supportive services for independent living - Outpatient dementia eval by neuro referral # 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 BPH - resolved after Mclaughlin placement - follow BMP - avoid nephrotoxic meds # physical deconditioning - Needs LTC at this point per PT dm insulin uti completed ceftin weakness refusing pt eval prostate ca gu eval dvt prophylaxis - dmitry full code reason for continued hospitalization: pending safe discharge to SNFand pathology reprt Time Spent With Patient Time: Total time managing care of this patient today ____ minutes. Quality Stroke Does the patient have a stroke diagnosis?: No VTE Prior VTE?: No VTE Risk Level:: Medical - moderate - high VTE Device Contraindication: Treatment Not Indicated VTE Drug Contraindication: N/A - Med Ordered
[2023-01-17 16:00] VITALS: BP 116/55; PULSE 81; RESP 20; TEMP 36.5; O2SAT 96
[2023-01-17 16:22] LABS: Glucose, Whole Blood 112 mg/dL (60-115)
[2023-01-17 20:00] VITALS: BP 115/61; PULSE 72; RESP 18; TEMP 36.6; O2SAT 96
[2023-01-17] MEDS: Pravastatin Sodium 40 MG TABLET PO (21:15)
[2023-01-18 03:07] VITALS: BP 159/73; PULSE 84; RESP 18; TEMP 36.8; O2SAT 94
[2023-01-18] MEDS: Acetaminophen 325 MG TABLET 650 MG PO (04:51)
[2023-01-18] MEDS: oxyCODONE HCl Immed Release 5 MG TABLET PO (06:15)
--- NOTE | 2023-01-18 06:16 | PC.NURSE ---
Pt c/o left flank pain including lower abd, warm compress applied, unrelieved even with prn Tylenol, Dr. Gardner was made aware, Oxycodone 5 mg po given.
[2023-01-18 07:21] VITALS: BP 130/60; PULSE 81; RESP 16; TEMP 36.1; O2SAT 98
[2023-01-18 07:24] LABS: Glucose, Whole Blood 150 mg/dL (60-115)
[2023-01-18 11:17] LABS: Glucose, Whole Blood 148 mg/dL (60-115)
[2023-01-18] MEDS: Acetaminophen 325 MG TABLET 975 MG PO ×2 (11:56→17:03)
[2023-01-18] MEDS: Gabapentin 100 MG CAPSULE PO (11:56)
--- NOTE | 2023-01-18 13:42 | PC.NURSE ---
Pt refused AM medication and care this morning, noted to be more confused than this nurse assessed yesterday, MD made aware and saw patient at bedside. Family was at patients bedside at 11:30, reported to this nurse patient was complaining of generalized body pain, MD notified, APAP and Gabapentin were ordered, Patient took pain medications without issue. Patient remains up OOB in chair.
--- NOTE | 2023-01-18 13:43 | P.PNIM_ITS ---
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 CTA bilateral CVS: S1,S2,irregular irregular GI: +BS, NT, no distention Skin: No rash, Mclaughlin in place Neuro:? motor grossly intact Psych: appropriate affect Objective Data Active Medications Acetaminophen (Acetaminophen 325 Mg Tablet) 650 mg PO ONCE PRN PRN Reason: Pain, Mild (Pain Scale 1-3) Acetaminophen (Acetaminophen 325 Mg Tablet) 975 mg PO Q6H [facility] Last Admin: 01/18/23 11:56 Dose: 975 mg Documented By: REZA Amlodipine Besylate (Amlodipine Besylate 5 Mg Tablet) 5 mg PO DAILY [facility]; Protocol Last Admin: 01/18/23 09:04 Dose: Not Given Documented By: REZA Non-Admin Reason: Patient Refused Apixaban (Apixaban 2.5 Mg Tablet) 2.5 mg PO BID [facility] Last Admin: 01/18/23 09:04 Dose: Not Given Documented By: REZA Non-Admin Reason: Patient Refused Bicalutamide (Bicalutamide 50 Mg Tablet) 50 mg PO TID [facility] Last Admin: 01/18/23 09:04 Dose: Not Given Documented By: REZA Non-Admin Reason: Patient Refused Docusate Sodium (Docusate Sodium 100 Mg Capsule) 100 mg PO DAILY PRN PRN Reason: Constipation Last Admin: 01/05/23 08:05 Dose: 100 mg Documented By: MIKE Finasteride (Finasteride 5 Mg Tablet) 5 mg PO DAILY [facility] Last Admin: 01/18/23 09:04 Dose: Not Given Documented By: REZA Non-Admin Reason: Patient Refused Gabapentin (Gabapentin 100 Mg Capsule) 100 mg PO BID [facility] Last Admin: 01/18/23 11:56 Dose: 100 mg Documented By: REZA Glucose (Glucose Gel 15 Gm Gel..Gram.) 15 gm PO Q15M PRN; Protocol PRN Reason: per Hypoglycemia Standing Ord. Dextrose (D10) 250 mls @ 750 mls/hr IV Q15M PRN; Protocol PRN Reason: per Hypoglycemia Standing Ord. Insulin Human Lispro (Insulin Lispro 100 Unit/Ml 3 Ml Vial) 0 unit SUBCUT QIDACHS [facility]; Protocol Last Admin: 01/18/23 11:17 Dose: Not Given Documented By: REZA Non-Admin Reason: No Insulin Coverage Metformin HCl (Metformin Hcl Er 500 Mg Tab.Er.24h) 2,000 mg PO DAILY [facility] Last Admin: 01/18/23 09:07 Dose: Not Given Documented By: REZA Non-Admin Reason: Patient Refused Metoprolol Tartrate (Metoprolol Tartrate 25 Mg Tablet) 25 mg PO BID [facility]; Protocol Last Admin: 01/18/23 09:07 Dose: Not Given Documented By: REZA Non-Admin Reason: Patient Refused Olanzapine (Olanzapine 10 Mg Vial) 5 mg IM DAILY PRN PRN Reason: agitation Olanzapine (Olanzapine 2.5 Mg Tablet) 2.5 mg PO Q4H PRN PRN Reason: Delirium Ondansetron HCl (Ondansetron Hcl 4 Mg/2 Ml Vial) 4 mg IVPUSH Q8H PRN PRN Reason: Nausea and Vomiting Ondansetron HCl (Ondansetron Hcl 4 Mg/2 Ml Vial) 4 mg IVPUSH ONCE PRN PRN Reason: Nausea and Vomiting Pharmacy Consult (Consult Rx Perform Med Rec) 1 each MISCELLANE ONCE PRN PRN Reason: Consult order Pravastatin Sodium (Pravastatin Sodium 40 Mg Tablet) 40 mg PO BEDTIME [facility] Last Admin: 01/17/23 21:15 Dose: 40 mg Documented By: LANE Sodium Chloride (0.9 % Sodium Chloride Flush 3 Ml Syringe) 3 ml IVFLUSH QSHIFT [facility] Last Admin: 01/18/23 08:41 Dose: Not Given Documented By: REZA Non-Admin Reason: Patient Refused Tamsulosin HCl (Tamsulosin Hcl 0.4 Mg Capsule) 0.8 mg PO DAILY [facility] Last Admin: 01/18/23 09:07 Dose: Not Given Documented By: REZA Non-Admin Reason: Patient Refused Labs 01/04/23 05:31 01/16/23 08:14 Labs: Laboratory Results - last 24 hr 01/17/23 01/18/23 01/18/23 16:16 07:00 10:58 POC Glucose 112 150 H 148 H Assessment and Plan (1) Metabolic encephalopathy: Status: Acute (2) Cognitive disorder: Status: Acute (3) Pain due to malignant neoplasm metastatic to bone: Status: Acute Plan 82M PMH paroxysmal afib on eliquis, DM, prostate ca, presented with weakness, mickey found to have prostate cancer 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 - Oxycodone prn for pain Paroxysmal afib with rvr - rate controlled currently, continue Eliquis and metoprolol metabolic encephalopathy likely 2/2 acute delerium vs chronic dementia +/- delerium - improved this am - Could be related to metastatic cancer to brain - psychiatry appreciated, currently patient lack capacity to make most medical decisions and unlikely to be able to live safely independently - OT eval for MoCA and ACLS, to assess his level of cognitive impairment and need for supportive services for independent living - Outpatient dementia eval by neuro referral 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 BPH - resolved after Mclaughlin placement - follow BMP - avoid nephrotoxic meds physical deconditioning - Needs LTC at this point per PT dm insulin uti completed ceftin weakness refusing pt eval prostate ca gu eval dvt prophylaxis - eliquis full code reason for continued hospitalization: pending safe discharge to SNFand pathology report. Time Spent With Patient Time: Total time managing care of this patient today ____ minutes. Quality Stroke Does the patient have a stroke diagnosis?: No VTE Prior VTE?: No VTE Risk Level:: Medical - moderate - high VTE Device Contraindication: Treatment Not Indicated VTE Drug Contraindication: N/A - Med Ordered
[2023-01-18] MEDS: 0.9 % Sodium Chloride Flush 3 ML SYRINGE IVFLUSH (14:47)
[2023-01-18] MEDS: Bicalutamide 50 MG TABLET PO (14:47)
--- NOTE | 2023-01-18 15:15 | P.EN_ITS ---
Event Note Date of Service: 01/18/23 Event Note: Dr. Mcrae consulted and discussed case with financial writer on the phone. Pt remains with combative behavior, swearing at staff, and resisting some treatments. It remains unclear if this is just dementia or delirium superimposed on dementia (or just delirium). Hospitalist is waiting for results from biopsy. Regardless, patients behaviors are interfering with treatment. Prior consult note recommended starting low dose antipsychotic which financial writer also recommends. Agreed to start Zyprexa 2.5mg daily for now Time Spent With Patient Time: Total time managing care of this patient today ____ minutes.
[2023-01-18 16:00] VITALS: BP 122/58; PULSE 78; RESP 20; TEMP 36; O2SAT 99
[2023-01-18] MEDS: OLANZapine 2.5 MG TABLET PO (16:04)
[2023-01-18 16:33] LABS: Glucose, Whole Blood 256 mg/dL (60-115)
[2023-01-18] MEDS: Insulin Lispro 100 UNIT/ML 3 ML VIAL SUBCUT (17:02)
[2023-01-18 19:57] VITALS: BP 127/62; PULSE 68; RESP 20; TEMP 36; O2SAT 98
[2023-01-18 20:51] LABS: Glucose, Whole Blood 127 mg/dL (60-115)
[2023-01-19] MEDS: Acetaminophen 325 MG TABLET 975 MG PO ×3 (01:40→17:50)
[2023-01-19] MEDS: 0.9 % Sodium Chloride Flush 3 ML SYRINGE IVFLUSH ×3 (01:43→19:41)
[2023-01-19 04:00] VITALS: BP 142/76; PULSE 80; RESP 16; TEMP 36.1; O2SAT 98
[2023-01-19 07:25] LABS: Glucose, Whole Blood 140 mg/dL (60-115)
[2023-01-19 07:27] VITALS: BP 131/66; PULSE 88; RESP 18; TEMP 37.1; O2SAT 97
[2023-01-19] MEDS: Tamsulosin HCL 0.4 MG CAPSULE 0.8 MG PO (08:51)
[2023-01-19] MEDS: Gabapentin 100 MG CAPSULE PO ×2 (08:51→20:25)
[2023-01-19] MEDS: amLODIPine Besylate 5 MG TABLET PO (08:51)
[2023-01-19] MEDS: Apixaban 2.5 MG TABLET PO ×2 (08:51→20:25)
[2023-01-19] MEDS: metFORMIN HCl ER 500 MG TAB.ER.24H 2000 MG PO (08:51)
[2023-01-19] MEDS: Finasteride 5 MG TABLET PO (08:52)
[2023-01-19] MEDS: OLANZapine 2.5 MG TABLET PO (08:52)
[2023-01-19] MEDS: Metoprolol Tartrate 25 MG TABLET PO ×2 (08:52→20:25)
[2023-01-19] MEDS: Bicalutamide 50 MG TABLET PO ×3 (08:52→20:25)
[2023-01-19 11:20] LABS: Glucose, Whole Blood 184 mg/dL (60-115)
--- NOTE | 2023-01-19 11:21 | MHC.CLN ---
F/U STAGE II TO COCCYX, REDNESS TO BILATERAL HEELS. DIET=DIABETIC 2000 KCALS. ENSURE MAX TID TO PROVIDE ADDITIONAL 450 KCALS, 90 G PROTEIN TO PROMOTE WOUND HEALING. CONTINUES WITH USUALLY GOOD INTAKE AT MEALS, 75-100%. FOLLOW FOR INTAKE AND WOUND HEALING.
[2023-01-19] MEDS: Insulin Lispro 100 UNIT/ML 3 ML VIAL SUBCUT ×2 (12:05→20:27)
--- NOTE | 2023-01-19 14:36 | P.PNIM_ITS ---
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 CTA bilateral CVS: S1,S2,irregular irregular GI: +BS, NT, no distention Skin: No rash, Mclaughlin in place Neuro:? motor grossly intact Psych: appropriate affect Objective Data Active Medications Acetaminophen (Acetaminophen 325 Mg Tablet) 650 mg PO ONCE PRN PRN Reason: Pain, Mild (Pain Scale 1-3) Acetaminophen (Acetaminophen 325 Mg Tablet) 975 mg PO Q6H [facility] Last Admin: 01/19/23 11:59 Dose: 975 mg Documented By: TALIB Amlodipine Besylate (Amlodipine Besylate 5 Mg Tablet) 5 mg PO DAILY [facility]; Protocol Last Admin: 01/19/23 08:51 Dose: 5 mg Documented By: TALIB Apixaban (Apixaban 2.5 Mg Tablet) 2.5 mg PO BID [facility] Last Admin: 01/19/23 08:51 Dose: 2.5 mg Documented By: TALIB Bicalutamide (Bicalutamide 50 Mg Tablet) 50 mg PO TID [facility] Last Admin: 01/19/23 08:52 Dose: 50 mg Documented By: TALIB Docusate Sodium (Docusate Sodium 100 Mg Capsule) 100 mg PO DAILY PRN PRN Reason: Constipation Last Admin: 01/05/23 08:05 Dose: 100 mg Documented By: MIKE Finasteride (Finasteride 5 Mg Tablet) 5 mg PO DAILY [facility] Last Admin: 01/19/23 08:52 Dose: 5 mg Documented By: TALIB Gabapentin (Gabapentin 100 Mg Capsule) 100 mg PO BID [facility] Last Admin: 01/19/23 08:51 Dose: 100 mg Documented By: TALIB Glucose (Glucose Gel 15 Gm Gel..Gram.) 15 gm PO Q15M PRN; Protocol PRN Reason: per Hypoglycemia Standing Ord. Dextrose (D10) 250 mls @ 750 mls/hr IV Q15M PRN; Protocol PRN Reason: per Hypoglycemia Standing Ord. Insulin Human Lispro (Insulin Lispro 100 Unit/Ml 3 Ml Vial) 0 unit SUBCUT Q IDACHS [facility]; Protocol Last Admin: 01/19/23 12:05 Dose: 2 unit Documented By: TALIB Metformin HCl (Metformin Hcl Er 500 Mg Tab.Er.24h) 2,000 mg PO DAILY [facility] Last Admin: 01/19/23 08:51 Dose: 2,000 mg Documented By: TALIB Metoprolol Tartrate (Metoprolol Tartrate 25 Mg Tablet) 25 mg PO BID [facility]; Protocol Last Admin: 01/19/23 08:52 Dose: 25 mg Documented By: TALIB Olanzapine (Olanzapine 10 Mg Vial) 5 mg IM DAILY PRN PRN Reason: agitation Olanzapine (Olanzapine 2.5 Mg Tablet) 2.5 mg PO Q4H PRN PRN Reason: Delirium Olanzapine (Olanzapine 2.5 Mg Tablet) 2.5 mg PO DAILY [facility] Last Admin: 01/19/23 08:52 Dose: 2.5 mg Documented By: TALIB Ondansetron HCl (Ondansetron Hcl 4 Mg/2 Ml Vial) 4 mg IVPUSH Q8H PRN PRN Reason: Nausea and Vomiting Ondansetron HCl (Ondansetron Hcl 4 Mg/2 Ml Vial) 4 mg IVPUSH ONCE PRN PRN Reason: Nausea and Vomiting Pharmacy Consult (Consult Rx Perform Med Rec) 1 each MISCELLANE ONCE PRN PRN Reason: Consult order Pravastatin Sodium (Pravastatin Sodium 40 Mg Tablet) 40 mg PO BEDTIME [facility] Last Admin: 01/18/23 21:29 Dose: Not Given Documented By: YULIA Non-Admin Reason: Patient Refused Sodium Chloride (0.9 % Sodium Chloride Flush 3 Ml Syringe) 3 ml IVFLUSH QSHIFT [facility] Last Admin: 01/19/23 08:56 Dose: 3 ml Documented By: TALIB Tamsulosin HCl (Tamsulosin Hcl 0.4 Mg Capsule) 0.8 mg PO DAILY [facility] Last Admin: 01/19/23 08:51 Dose: 0.8 mg Documented By: TALIB Labs 01/04/23 05:31 01/16/23 08:14 Labs: Laboratory Results - last 24 hr 01/18/23 01/18/23 01/19/23 16:29 20:44 07:17 POC Glucose 256 H 127 H 140 H 01/19/23 11:12 POC Glucose 184 H Assessment and Plan (1) Metabolic encephalopathy: Status: Acute (2) Cognitive disorder: Status: Acute (3) Pain due to malignant neoplasm metastatic to bone: Status: Acute Plan 82M PMH paroxysmal afib on eliquis, DM, prostate ca, presented with weakness, mickey found to have prostate cancer 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 - Oxycodone prn for pain Paroxysmal afib with rvr - rate controlled currently, continue Eliquis and metoprolol metabolic encephalopathy likely 2/2 acute delerium vs chronic dementia +/- delerium - improved this am - Could be related to metastatic cancer to brain - psychiatry appreciated, currently patient lack capacity to make most medical decisions and unlikely to be able to live safely independently - OT eval for MoCA and ACLS, to assess his level of cognitive impairment and need for supportive services for independent living - Outpatient dementia eval by neuro referral 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 BPH - resolved after Mclaughlin placement - follow BMP - avoid nephrotoxic meds physical deconditioning - Needs LTC at this point per PT dm insulin uti completed ceftin weakness refusing pt eval prostate ca gu eval dvt prophylaxis - eliquis full code reason for continued hospitalization: pending safe discharge to SNFand pathology report. Time Spent With Patient Time: Total time managing care of this patient today ____ minutes. Quality Stroke Does the patient have a stroke diagnosis?: No VTE Prior VTE?: No VTE Risk Level:: Medical - moderate - high VTE Device Contraindication: Treatment Not Indicated VTE Drug Contraindication: N/A - Med Ordered
[2023-01-19 16:00] VITALS: PULSE 74; RESP 20; TEMP 36; O2SAT 99
[2023-01-19 16:35] LABS: Glucose, Whole Blood 108 mg/dL (60-115)
[2023-01-19 19:47] VITALS: BP 119/68; PULSE 78; RESP 18; TEMP 36; O2SAT 97
[2023-01-19 20:18] LABS: Glucose, Whole Blood 154 mg/dL (60-115)
[2023-01-19] MEDS: Pravastatin Sodium 40 MG TABLET PO (20:25)
[2023-01-19 22:40] VITALS: BP 160/79; PULSE 147; RESP 20; TEMP 37.3; O2SAT 96
[2023-01-20 04:00] VITALS: BP 127/72; PULSE 80; RESP 18; TEMP 36.3; O2SAT 97
[2023-01-20] MEDS: Acetaminophen 325 MG TABLET 975 MG PO ×4 (04:57→23:45)
[2023-01-20 07:11] VITALS: BP 135/64; PULSE 74; RESP 18; TEMP 36.2; O2SAT 97
[2023-01-20 07:44] LABS: Glucose, Whole Blood 140 mg/dL (60-115)
[2023-01-20] MEDS: Finasteride 5 MG TABLET PO (08:11)
[2023-01-20] MEDS: Tamsulosin HCL 0.4 MG CAPSULE 0.8 MG PO (08:11)
[2023-01-20] MEDS: Bicalutamide 50 MG TABLET PO ×3 (08:11→20:09)
[2023-01-20] MEDS: 0.9 % Sodium Chloride Flush 3 ML SYRINGE IVFLUSH ×3 (08:11→20:09)
[2023-01-20] MEDS: metFORMIN HCl ER 500 MG TAB.ER.24H 2000 MG PO (08:11)
[2023-01-20] MEDS: Gabapentin 100 MG CAPSULE PO ×2 (08:12→20:08)
[2023-01-20] MEDS: OLANZapine 2.5 MG TABLET PO ×2 (08:12→20:08)
[2023-01-20] MEDS: Metoprolol Tartrate 25 MG TABLET PO ×2 (08:12→20:08)
[2023-01-20] MEDS: Apixaban 2.5 MG TABLET PO ×2 (08:12→20:08)
[2023-01-20] MEDS: amLODIPine Besylate 5 MG TABLET PO (08:12)
[2023-01-20 11:12] LABS: Glucose, Whole Blood 155 mg/dL (60-115)
[2023-01-20] MEDS: Insulin Lispro 100 UNIT/ML 3 ML VIAL SUBCUT (13:33)
--- NOTE | 2023-01-20 13:49 | HO.PM.IMPN ---
Subjective Subjective Date of Service: 01/20/23 Interval History: metabolic encephalopathy?,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 with back pain Review of Systems laying comfortable in his bed,pain under fair control,No other overnight events Physical Exam Vital Signs: Vital Signs: Last Vital Signs Temp 97.2 F 01/20/23 07:11 Pulse 74 01/20/23 07:11 Resp 18 01/20/23 07:11 BP 135/64 01/20/23 07:11 Pulse Ox 97 01/20/23 07:11 O2 Del Method Room Air 01/20/23 07:11 O2 Flow Rate 2 01/19/23 22:40 Oxygen Flow Rate 3 01/10/23 18:20 BMI result Body Mass Index 24.2 General: AO X 2, no acute distress Resp:? CTA bilateral CVS: S1,S2,irregular irregular GI: +BS, NT, no distention Skin: No rash, Mclaughlin in place Neuro:? motor grossly intact Psych: appropriate affect Objective Data Active Medications Acetaminophen (Acetaminophen 325 Mg Tablet) 650 mg PO ONCE PRN PRN Reason: Pain, Mild (Pain Scale 1-3) Acetaminophen (Acetaminophen 325 Mg Tablet) 975 mg PO Q6H [facility] Last Admin: 01/20/23 13:33 Dose: 975 mg Documented By: CEZAR Amlodipine Besylate (Amlodipine Besylate 5 Mg Tablet) 5 mg PO DAILY [facility]; Protocol Last Admin: 01/20/23 08:12 Dose: 5 mg Documented By: CEZAR Apixaban (Apixaban 2.5 Mg Tablet) 2.5 mg PO BID [facility] Last Admin: 01/20/23 08:12 Dose: 2.5 mg Documented By: CEZAR Bicalutamide (Bicalutamide 50 Mg Tablet) 50 mg PO TID [facility] Last Admin: 01/20/23 08:11 Dose: 50 mg Documented By: CEZAR Docusate Sodium (Docusate Sodium 100 Mg Capsule) 100 mg PO DAILY PRN PRN Reason: Constipation Last Admin: 01/05/23 08:05 Dose: 100 mg Documented By: MIKE Finasteride (Finasteride 5 Mg Tablet) 5 mg PO DAILY [facility] Last Admin: 01/20/23 08:11 Dose: 5 mg Documented By: CEZAR Gabapentin (Gabapentin 100 Mg Capsule) 100 mg PO BID [facility] Last Admin: 01/20/23 08:12 Dose: 100 mg Documented By: CEZAR Glucose (Glucose Gel 15 Gm Gel..Gram.) 15 gm PO Q15M PRN; Protocol PRN Reason: per Hypoglycemia Standing Ord. Dextrose (D10) 250 mls @ 750 mls/hr IV Q15M PRN; Protocol PRN Reason: per Hypoglycemia Standing Ord. Insulin Human Lispro (Insulin Lispro 100 Unit/Ml 3 Ml Vial) 0 unit SUBCUT QIDACHS [facility]; Protocol Last Admin: 01/20/23 13:33 Dose: 2 unit Documented By: CEZAR Metformin HCl (Metformin Hcl Er 500 Mg Tab.Er.24h) 2,000 mg PO DAILY [facility] Last Admin: 01/20/23 08:11 Dose: 2,000 mg Documented By: CEZAR Metoprolol Tartrate (Metoprolol Tartrate 25 Mg Tablet) 25 mg PO BID [facility]; Protocol Last Admin: 01/20/23 08:12 Dose: 25 mg Documented By: CEZAR Olanzapine (Olanzapine 10 Mg Vial) 5 mg IM DAILY PRN PRN Reason: agitation Olanzapine (Olanzapine 2.5 Mg Tablet) 2.5 mg PO Q4H PRN PRN Reason: Delirium Olanzapine (Olanzapine 2.5 Mg Tablet) 2.5 mg PO DAILY [facility] Last Admin: 01/20/23 08:12 Dose: 2.5 mg Documented By: CEZAR Ondansetron HCl (Ondansetron Hcl 4 Mg/2 Ml Vial) 4 mg IVPUSH Q8H PRN PRN Reason: Nausea and Vomiting Ondansetron HCl (Ondansetron Hcl 4 Mg/2 Ml Vial) 4 mg IVPUSH ONCE PRN PRN Reason: Nausea and Vomiting Pharmacy Consult (Consult Rx Perform Med Rec) 1 each MISCELLANE ONCE PRN PRN Reason: Consult order Pravastatin Sodium (Pravastatin Sodium 40 Mg Tablet) 40 mg PO BEDTIME [facility] Last Admin: 01/19/23 20:25 Dose: 40 mg Documented By: LUIS DANIEL Sodium Chloride (0.9 % Sodium Chloride Flush 3 Ml Syringe) 3 ml IVFLUSH QSHIFT [facility] Last Admin: 01/20/23 08:11 Dose: 3 ml Documented By: CEZAR Tamsulosin HCl (Tamsulosin Hcl 0.4 Mg Capsule) 0.8 mg PO DAILY [facility] Last Admin: 01/20/23 08:11 Dose: 0.8 mg Documented By: CEZAR Labs 01/04/23 05:31 01/16/23 08:14 Labs: Laboratory Results - last 24 hr 01/19/23 01/19/23 01/20/23 16:28 20:14 07:09 POC Glucose 108 154 H 140 H 01/20/23 11:00 POC Glucose 155 H Assessment and Plan (1) Metabolic encephalopathy: Status: Acute (2) Cognitive disorder: Status: Acute (3) Pain due to malignant neoplasm metastatic to bone: Status: Acute Plan 82M PMH paroxysmal afib on eliquis, DM, prostate ca, presented with weakness, mickey found to have prostate cancer 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 - Oxycodone prn for pain Paroxysmal afib with rvr - rate controlled currently, continue Eliquis and metoprolol metabolic encephalopathy likely 2/2 acute delerium vs chronic dementia +/- delerium - improved this am added mri to evaluate - Could be related to metastatic cancer to brain - psychiatry appreciated, currently patient lack capacity to make most medical decisions and unlikely to be able to live safely independently - OT eval for MoCA and ACLS, to assess his level of cognitive impairment and need for supportive services for independent living - Outpatient dementia eval by neuro referral 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 BPH - resolved after Mclaughlin placement - follow BMP - avoid nephrotoxic meds physical deconditioning - Needs LTC at this point per PT dm insulin uti completed ceftin weakness refusing pt eval prostate ca gu eval dvt prophylaxis - eliquis full code reason for continued hospitalization: pending safe discharge to SNFand pathology report. Time Spent With Patient Time: Total time managing care of this patient today ____ minutes. Quality Stroke Does the patient have a stroke diagnosis?: No VTE Prior VTE?: No VTE Risk Level:: Medical - moderate - high VTE Device Contraindication: Treatment Not Indicated VTE Drug Contraindication: N/A - Med Ordered
[2023-01-20 15:28] VITALS: BP 109/58; PULSE 66; RESP 18; TEMP 36.2; O2SAT 98
[2023-01-20 16:08] LABS: Glucose, Whole Blood 112 mg/dL (60-115)
[2023-01-20 19:48] VITALS: BP 134/68; PULSE 85; RESP 19; TEMP 36.4; O2SAT 94
[2023-01-20] MEDS: Pravastatin Sodium 40 MG TABLET PO (20:09)
[2023-01-20 20:32] LABS: Glucose, Whole Blood 151 mg/dL (60-115)
[2023-01-21 03:34] VITALS: BP 133/64; PULSE 72; RESP 18; TEMP 36.4; O2SAT 72
[2023-01-21] MEDS: OLANZapine 2.5 MG TABLET PO ×2 (05:34→07:59)
[2023-01-21] MEDS: Acetaminophen 325 MG TABLET 975 MG PO ×4 (05:34→23:31)
[2023-01-21 07:26] VITALS: BP 125/60; PULSE 68; RESP 18; TEMP 36.1; O2SAT 100
[2023-01-21 07:34] LABS: Glucose, Whole Blood 202 mg/dL (60-115)
[2023-01-21] MEDS: Bicalutamide 50 MG TABLET PO ×3 (07:58→21:15)
[2023-01-21] MEDS: metFORMIN HCl ER 500 MG TAB.ER.24H 2000 MG PO (07:58)
[2023-01-21] MEDS: Metoprolol Tartrate 25 MG TABLET PO ×2 (07:58→21:15)
[2023-01-21] MEDS: amLODIPine Besylate 5 MG TABLET PO (07:58)
[2023-01-21] MEDS: Finasteride 5 MG TABLET PO (07:59)
[2023-01-21] MEDS: Insulin Lispro 100 UNIT/ML 3 ML VIAL SUBCUT ×2 (07:59→16:45)
[2023-01-21] MEDS: 0.9 % Sodium Chloride Flush 3 ML SYRINGE IVFLUSH ×3 (07:59→21:15)
[2023-01-21] MEDS: Gabapentin 100 MG CAPSULE PO ×2 (07:59→21:15)
[2023-01-21] MEDS: Tamsulosin HCL 0.4 MG CAPSULE 0.8 MG PO (07:59)
[2023-01-21] MEDS: Apixaban 2.5 MG TABLET PO ×2 (07:59→21:15)
--- NOTE | 2023-01-21 11:06 | MHC.CLN ---
F/U STAGE II TO COCCYX. DIET=DIABETIC 2000 KCALS. ENSURE MAX TID TO PROVIDE ADDITIONAL 450 KCALS, 90 G PROTEIN TO PROMOTE WOUND HEALING. CONTINUES WITH USUALLY GOOD INTAKE AT MEALS, 75-100%. FOLLOW FOR INTAKE AND WOUND HEALING. RD TO FOLLOW WEEKLY.
--- NOTE | 2023-01-21 11:28 | HO.PM.IMPN ---
Subjective Subjective Date of Service: 01/21/23 Interval History: metabolic encephalopathy?,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 with back pain Review of Systems Sitting on the chair, mental status seems somewhat improving Was agitated is little bit this morning but seems better now. Denies any chest pain or shortness of breath Physical Exam Vital Signs: Vital Signs: Last Vital Signs Temp 96.9 F 01/21/23 07:26 Pulse 68 01/21/23 07:26 Resp 18 01/21/23 07:26 BP 125/60 01/21/23 07:26 Pulse Ox 100 01/21/23 07:26 O2 Del Method Room Air 01/21/23 07:26 O2 Flow Rate 2 01/19/23 22:40 Oxygen Flow Rate 3 01/10/23 18:20 BMI result Body Mass Index 24.2 General: AO X 2, no acute distress Resp:? CTA bilateral CVS: S1,S2,irregular irregular GI: +BS, NT, no distention Skin: No rash, Mclaughlin in place Neuro:? motor grossly intact Psych: appropriate affect Objective Data Active Medications Acetaminophen (Acetaminophen 325 Mg Tablet) 650 mg PO ONCE PRN PRN Reason: Pain, Mild (Pain Scale 1-3) Acetaminophen (Acetaminophen 325 Mg Tablet) 975 mg PO Q6H [facility] Last Admin: 01/21/23 05:34 Dose: 975 mg Documented By: DOLORES Amlodipine Besylate (Amlodipine Besylate 5 Mg Tablet) 5 mg PO DAILY [facility]; Protocol Last Admin: 01/21/23 07:58 Dose: 5 mg Documented By: MACKENZIE Apixaban (Apixaban 2.5 Mg Tablet) 2.5 mg PO BID [facility] Last Admin: 01/21/23 07:59 Dose: 2.5 mg Documented By: MACKENZIE Bicalutamide (Bicalutamide 50 Mg Tablet) 50 mg PO TID [facility] Last Admin: 01/21/23 07:58 Dose: 50 mg Documented By: MACKENZIE Docusate Sodium (Docusate Sodium 100 Mg Capsule) 100 mg PO DAILY PRN PRN Reason: Constipation Last Admin: 01/05/23 08:05 Dose: 100 mg Documented By: MIKE Finasteride (Finasteride 5 Mg Tablet) 5 mg PO DAILY [facility] Last Admin: 01/21/23 07:59 Dose: 5 mg Documented By: MACKENZIE Gabapentin (Gabapentin 100 Mg Capsule) 100 mg PO BID [facility] Last Admin: 01/21/23 07:59 Dose: 100 mg Documented By: MACKENZIE Glucose (Glucose Gel 15 Gm Gel..Gram.) 15 gm PO Q15M PRN; Protocol PRN Reason: per Hypoglycemia Standing Ord. Dextrose (D10) 250 mls @ 750 mls/hr IV Q15M PRN; Protocol PRN Reason: per Hypoglycemia Standing Ord. Insulin Human Lispro (Insulin Lispro 100 Unit/Ml 3 Ml Vial) 0 unit SUBCUT QIDACHS [facility]; Protocol Last Admin: 01/21/23 07:59 Dose: 4 unit Documented By: MACKENZIE Metformin HCl (Metformin Hcl Er 500 Mg Tab.Er.24h) 2,000 mg PO DAILY [facility] Last Admin: 01/21/23 07:58 Dose: 2,000 mg Documented By: MACKENZIE Metoprolol Tartrate (Metoprolol Tartrate 25 Mg Tablet) 25 mg PO BID [facility]; Protocol Last Admin: 01/21/23 07:58 Dose: 25 mg Documented By: MACKENZIE Olanzapine (Olanzapine 10 Mg Vial) 5 mg IM DAILY PRN PRN Reason: agitation Olanzapine (Olanzapine 2.5 Mg Tablet) 2.5 mg PO Q4H PRN PRN Reason: Delirium Last Admin: 01/21/23 05:34 Dose: 2.5 mg Documented By: DOLORES Olanzapine (Olanzapine 2.5 Mg Tablet) 2.5 mg PO DAILY [facility] Last Admin: 01/21/23 07:59 Dose: 2.5 mg Documented By: MACKENZIE Ondansetron HCl (Ondansetron Hcl 4 Mg/2 Ml Vial) 4 mg IVPUSH Q8H PRN PRN Reason: Nausea and Vomiting Ondansetron HCl (Ondansetron Hcl 4 Mg/2 Ml Vial) 4 mg IVPUSH ONCE PRN PRN Reason: Nausea and Vomiting Pharmacy Consult (Consult Rx Perform Med Rec) 1 each MISCELLANE ONCE PRN PRN Reason: Consult order Pravastatin Sodium (Pravastatin Sodium 40 Mg Tablet) 40 mg PO BEDTIME [facility] Last Admin: 01/20/23 20:09 Dose: 40 mg Documented By: DOLORES Sodium Chloride (0.9 % Sodium Chloride Flush 3 Ml Syringe) 3 ml IVFLUSH QSHIFT [facility] Last Admin: 01/21/23 07:59 Dose: 3 ml Documented By: MACKENZIE Tamsulosin HCl (Tamsulosin Hcl 0.4 Mg Capsule) 0.8 mg PO DAILY [facility] Last Admin: 01/21/23 07:59 Dose: 0.8 mg Documented By: MACKENZIE Labs 01/04/23 05:31 01/16/23 08:14 Labs: Laboratory Results - last 24 hr 01/20/23 01/20/23 01/21/23 16:04 20:29 07:24 POC Glucose 112 151 H 202 H Assessment and Plan (1) Metabolic encephalopathy: Status: Acute (2) Cognitive disorder: Status: Acute (3) Pain due to malignant neoplasm metastatic to bone: Status: Acute Plan 82M PMH paroxysmal afib on eliquis, DM, prostate ca, presented with weakness, mickey found to have prostate cancer 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 - Oxycodone prn for pain Paroxysmal afib with rvr - rate controlled currently, continue Eliquis and metoprolol metabolic encephalopathy likely 2/2 acute delerium vs chronic dementia +/- delerium - improved this am added mri to evaluate - Could be related to metastatic cancer to brain - psychiatry appreciated, currently patient lack capacity to make most medical decisions and unlikely to be able to live safely independently - OT eval for MoCA and ACLS, to assess his level of cognitive impairment and need for supportive services for independent living - Outpatient dementia eval by neuro referral 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 BPH - resolved after Mclaughlin placement - follow BMP - avoid nephrotoxic meds physical deconditioning - Needs LTC at this point per PT dm insulin uti completed ceftin weakness refusing pt eval prostate ca gu eval dvt prophylaxis - eliquis full code reason for continued hospitalization: pending safe discharge to SNFand pathology report. Time Spent With Patient Time: Total time managing care of this patient today ____ minutes. Quality Stroke Does the patient have a stroke diagnosis?: No VTE Prior VTE?: No VTE Risk Level:: Medical - moderate - high VTE Device Contraindication: Treatment Not Indicated VTE Drug Contraindication: N/A - Med Ordered
[2023-01-21 11:41] LABS: Glucose, Whole Blood 106 mg/dL (60-115)
[2023-01-21 15:41] VITALS: BP 146/67; PULSE 77; RESP 16; TEMP 36.6; O2SAT 99
[2023-01-21 16:09] LABS: Glucose, Whole Blood 170 mg/dL (60-115)
[2023-01-21 19:27] VITALS: BP 140/63; PULSE 94; RESP 17; TEMP 36.4; O2SAT 97
[2023-01-21 20:19] LABS: Glucose, Whole Blood 147 mg/dL (60-115)
[2023-01-21] MEDS: Pravastatin Sodium 40 MG TABLET PO (21:16)
[2023-01-22 03:31] VITALS: BP 143/63; PULSE 84; RESP 14; TEMP 37.1; O2SAT 98
[2023-01-22] MEDS: Acetaminophen 325 MG TABLET 975 MG PO ×2 (06:26→17:36)
--- NOTE | 2023-01-22 06:37 | PC.NURSE ---
Pt was reporting pain tramadol one time dose was ordered but when attempted to give to patient he refused
[2023-01-22 06:56] VITALS: BP 150/78; PULSE 81; RESP 19; TEMP 36.6; O2SAT 96
--- NOTE | 2023-01-22 11:52 | HO.PM.IMPN ---
Subjective Subjective Date of Service: 01/22/23 Interval History: Confused this a.m.. No acute issues overnight Review of Systems unable to obtain Physical Exam Vital Signs: Vital Signs: Last Vital Signs Temp 98 F 01/22/23 06:56 Pulse 81 01/22/23 06:56 Resp 19 01/22/23 06:56 BP 150/78 H 01/22/23 06:56 Pulse Ox 96 01/22/23 06:56 O2 Del Method Room Air 01/22/23 06:56 O2 Flow Rate 2 01/19/23 22:40 Oxygen Flow Rate 3 01/10/23 18:20 BMI result Body Mass Index 24.2 Const: Other: awake alert. not oriented to person place or time. No acute distress Resp: Other: clear to auscultation bilaterally no rales rhonchi or wheezes Cardio: Other: no S4; positive S1-S2; no S3 murmurs rubs or gallops GI: Other: soft nontender nondistended normoactive bowel sounds x4 quadrants Neuro: Other: unable to do focused exam. Moves all extremities with equal power. . . Cranial nerves appear intact Extrem: Other: no edema bilaterally Objective Data Active Medications Acetaminophen (Acetaminophen 325 Mg Tablet) 650 mg PO ONCE PRN PRN Reason: Pain, Mild (Pain Scale 1-3) Acetaminophen (Acetaminophen 325 Mg Tablet) 975 mg PO Q6H [facility] Last Admin: 01/22/23 06:26 Dose: 975 mg Documented By: LANE Amlodipine Besylate (Amlodipine Besylate 5 Mg Tablet) 5 mg PO DAILY [facility]; Protocol Last Admin: 01/22/23 09:18 Dose: Not Given Documented By: ELIAZAR Non-Admin Reason: Patient Refused Apixaban (Apixaban 2.5 Mg Tablet) 2.5 mg PO BID [facility] Last Admin: 01/22/23 09:18 Dose: Not Given Documented By: ELIAZAR Non-Admin Reason: Patient Refused Bicalutamide (Bicalutamide 50 Mg Tablet) 50 mg PO TID [facility] Last Admin: 01/22/23 09:18 Dose: Not Given Documented By: ELIAZAR Non-Admin Reason: Not In Room Docusate Sodium (Docusate Sodium 100 Mg Capsule) 100 mg PO DAILY PRN PRN Reason: Constipation Last Admin: 01/05/23 08:05 Dose: 100 mg Documented By: MIKE Finasteride (Finasteride 5 Mg Tablet) 5 mg PO DAILY [facility] Last Admin: 01/22/23 09:18 Dose: Not Given Documented By: ELIAZAR Non-Admin Reason: Patient Refused Gabapentin (Gabapentin 100 Mg Capsule) 100 mg PO BID [facility] Last Admin: 01/22/23 09:17 Dose: Not Given Documented By: ELIAZAR Non-Admin Reason: Unable to Scan Barcode Glucose (Glucose Gel 15 Gm Gel..Gram.) 15 gm PO Q15M PRN; Protocol PRN Reason: per Hypoglycemia Standing Ord. Dextrose (D10) 250 mls @ 750 mls/hr IV Q15M PRN; Protocol PRN Reason: per Hypoglycemia Standing Ord. Insulin Human Lispro (Insulin Lispro 100 Unit/Ml 3 Ml Vial) 0 unit SUBCUT QIDACHS [facility]; Protocol Last Admin: 01/22/23 09:16 Dose: Not Given Documented By: ELIAZAR Non-Admin Reason: Patient Refused Metformin HCl (Metformin Hcl Er 500 Mg Tab.Er.24h) 2,000 mg PO DAILY [facility] Last Admin: 01/22/23 09:17 Dose: Not Given Documented By: ELIAZAR Non-Admin Reason: Patient Refused Metoprolol Tartrate (Metoprolol Tartrate 25 Mg Tablet) 25 mg PO BID [facility]; Protocol Last Admin: 01/22/23 09:17 Dose: Not Given Documented By: ELIAZAR Non-Admin Reason: Patient Refused Olanzapine (Olanzapine 10 Mg Vial) 5 mg IM DAILY PRN PRN Reason: agitation Olanzapine (Olanzapine 2.5 Mg Tablet) 2.5 mg PO Q4H PRN PRN Reason: Delirium Last Admin: 01/21/23 05:34 Dose: 2.5 mg Documented By: DOLORES Olanzapine (Olanzapine 2.5 Mg Tablet) 2.5 mg PO DAILY [facility] Last Admin: 01/22/23 09:17 Dose: Not Given Documented By: ELIAZAR Non-Admin Reason: Patient Refused Ondansetron HCl (Ondansetron Hcl 4 Mg/2 Ml Vial) 4 mg IVPUSH Q8H PRN PRN Reason: Nausea and Vomiting Ondansetron HCl (Ondansetron Hcl 4 Mg/2 Ml Vial) 4 mg IVPUSH ONCE PRN PRN Reason: Nausea and Vomiting Pharmacy Consult (Consult Rx Perform Med Rec) 1 each MISCELLANE ONCE PRN PRN Reason: Consult order Pravastatin Sodium (Pravastatin Sodium 40 Mg Tablet) 40 mg PO BEDTIME [facility] Last Admin: 01/21/23 21:16 Dose: 40 mg Documented By: LANE Sodium Chloride (0.9 % Sodium Chloride Flush 3 Ml Syringe) 3 ml IVFLUSH QSHIFT [facility] Last Admin: 01/22/23 09:18 Dose: Not Given Documented By: ELIAZAR Non-Admin Reason: Patient Refused Tamsulosin HCl (Tamsulosin Hcl 0.4 Mg Capsule) 0.8 mg PO DAILY [facility] Last Admin: 01/22/23 09:17 Dose: Not Given Documented By: ELIAZAR Non-Admin Reason: Patient Refused Labs 01/04/23 05:31 01/16/23 08:14 Labs: Laboratory Results - last 24 hr 01/21/23 01/21/23 01/22/23 16:04 20:10 06:59 POC Glucose 170 H 147 H 169 H 01/22/23 11:09 POC Glucose 264 H Assessment and Plan (1) Metabolic encephalopathy: Status: Acute (2) Prostate cancer: Status: Acute (3) Metastasis to bone: Status: Acute (4) ANTONELLA (acute kidney injury): Status: Acute (5) Diabetes type 2, controlled: Status: Acute Plan ?82-year-old male with a PMH significant for recently diagnosed?AFib on Eliquis, [id number] diabetes, and enlarged prostate who presents to the ED with?generalized weakness.? Patient recently presented to the emergency room 5 days prior on 12/26/2022 for evaluation of lower back pain.? Patient was found to have new onset AFib with RVR and a likely UTI.? CT scan of abdomen and pelvis found a marked heterogeneous enlargement the prostate gland with asymmetric nodular thickening of the left seminal vesicle concerning for primary malignancy.? Patient will be admitted to the hospital?for treatment and further evaluation of generalized weakness in the setting of ANTONELLA and UTI 1.Metastatic prostate cancer to bone(Bone Scan) -Adernocarcinoma/GG5 - started on bicalutamide (Urology) - Oncology consult pending - Oxycodone prn for pain 2. Paroxysmal afib with rvr - acceptable rate control - adjust as indicated - continue Eliquis 3.Metabolic encephalopathy ( acute delirium in backdrop of chronic dementia - MRI negative for metastatic lesions - patient lacks capacity to make most medical decisions and unlikely to be able to live safely independently(psychiatry) -awaiting placement 4.ANTONELLA on CKD II - resolved after Mclaughlin placement - follow renals/divalents 5.DMI - acceptable control on current therapies -lispro correctional scale - adjust as indicated Eliquis full code Requires continued hospitalization: pending safe discharge to SNFand pathology report. Time Spent With Patient Time: Total time managing care of this patient today ____ minutes. Quality Stroke Does the patient have a stroke diagnosis?: No VTE Prior VTE?: No VTE Risk Level:: Medical - moderate - high VTE Device Contraindication: Treatment Not Indicated VTE Drug Contraindication: N/A - Med Ordered
[2023-01-22] MEDS: Insulin Lispro 100 UNIT/ML 3 ML VIAL SUBCUT ×3 (11:56→20:33)
[2023-01-22 16:00] VITALS: BP 134/67; PULSE 78; RESP 18; TEMP 36.7; O2SAT 97
--- NOTE | 2023-01-22 17:03 | PC.NURSE ---
Patient refused insulin at this time,patient said return later if you want,eating dinner at present
[2023-01-22] MEDS: 0.9 % Sodium Chloride Flush 3 ML SYRINGE IVFLUSH ×2 (17:29→20:34)
[2023-01-22 18:59] VITALS: BP 123/59; PULSE 93; RESP 20; TEMP 36.7; O2SAT 97
[2023-01-22] MEDS: Pravastatin Sodium 40 MG TABLET PO (20:33)
[2023-01-22] MEDS: Apixaban 2.5 MG TABLET PO (20:33)
[2023-01-22] MEDS: Metoprolol Tartrate 25 MG TABLET PO (20:33)
[2023-01-22] MEDS: Bicalutamide 50 MG TABLET PO (20:33)
[2023-01-22] MEDS: Gabapentin 100 MG CAPSULE PO (20:33)
[2023-01-23 03:06] VITALS: BP 154/70; PULSE 88; RESP 16; TEMP 36.7; O2SAT 95
[2023-01-23] MEDS: Acetaminophen 325 MG TABLET 975 MG PO ×3 (06:21→18:38)
[2023-01-23 07:18] VITALS: BP 144/76; PULSE 78; RESP 18; TEMP 36.7; O2SAT 96
[2023-01-23] MEDS: 0.9 % Sodium Chloride Flush 3 ML SYRINGE IVFLUSH ×2 (07:49→16:45)
[2023-01-23] MEDS: Tamsulosin HCL 0.4 MG CAPSULE 0.8 MG PO (07:49)
[2023-01-23] MEDS: Insulin Lispro 100 UNIT/ML 3 ML VIAL SUBCUT ×3 (07:49→20:51)
[2023-01-23] MEDS: Metoprolol Tartrate 25 MG TABLET PO ×2 (07:50→20:47)
[2023-01-23] MEDS: Gabapentin 100 MG CAPSULE PO ×2 (07:50→20:47)
[2023-01-23] MEDS: Apixaban 2.5 MG TABLET PO ×2 (07:50→20:47)
[2023-01-23] MEDS: amLODIPine Besylate 5 MG TABLET PO (07:50)
[2023-01-23] MEDS: Finasteride 5 MG TABLET PO (07:51)
[2023-01-23] MEDS: OLANZapine 2.5 MG TABLET PO (07:51)
[2023-01-23] MEDS: metFORMIN HCl ER 500 MG TAB.ER.24H 2000 MG PO (07:51)
[2023-01-23] MEDS: Bicalutamide 50 MG TABLET PO ×3 (07:51→20:47)
--- NOTE | 2023-01-23 10:49 | HO.PM.IMPN ---
Subjective Subjective Date of Service: 01/23/23 Interval History: Remains confused but cooperative today. Review of Systems unable to obtain Physical Exam Vital Signs: Vital Signs: Last Vital Signs Temp 98.1 F 01/23/23 07:18 Pulse 78 01/23/23 07:18 Resp 18 01/23/23 07:18 BP 144/76 H 01/23/23 07:18 Pulse Ox 96 01/23/23 07:18 O2 Del Method Room Air 01/23/23 07:18 O2 Flow Rate 2 01/19/23 22:40 Oxygen Flow Rate 3 01/10/23 18:20 BMI result Body Mass Index 24.2 Const: Other: awake alert. not oriented to person place or time. No acute distress Resp: Other: clear to auscultation bilaterally no rales rhonchi or wheezes Cardio: Other: no S4; positive S1-S2; no S3 murmurs rubs or gallops GI: Other: soft nontender nondistended normoactive bowel sounds x4 quadrants Neuro: Other: unable to do focused exam. Moves all extremities with equal power. . . Cranial nerves appear intact Extrem: Other: no edema bilaterally Objective Data Active Medications Acetaminophen (Acetaminophen 325 Mg Tablet) 650 mg PO ONCE PRN PRN Reason: Pain, Mild (Pain Scale 1-3) Acetaminophen (Acetaminophen 325 Mg Tablet) 975 mg PO Q6H [facility] Last Admin: 01/23/23 06:21 Dose: 975 mg Documented By: LEE ANN Amlodipine Besylate (Amlodipine Besylate 5 Mg Tablet) 5 mg PO DAILY [facility]; Protocol Last Admin: 01/23/23 07:50 Dose: 5 mg Documented By: ELIAZAR Apixaban (Apixaban 2.5 Mg Tablet) 2.5 mg PO BID [facility] Last Admin: 01/23/23 07:50 Dose: 2.5 mg Documented By: ELIAZAR Bicalutamide (Bicalutamide 50 Mg Tablet) 50 mg PO TID [facility] Last Admin: 01/23/23 07:51 Dose: 50 mg Documented By: ELIAZAR Docusate Sodium (Docusate Sodium 100 Mg Capsule) 100 mg PO DAILY PRN PRN Reason: Constipation Last Admin: 01/05/23 08:05 Dose: 100 mg Documented By: MIKE Finasteride (Finasteride 5 Mg Tablet) 5 mg PO DAILY [facility] Last Admin: 01/23/23 07:51 Dose: 5 mg Documented By: ELIAZAR Gabapentin (Gabapentin 100 Mg Capsule) 100 mg PO BID [facility] Last Admin: 01/23/23 07:50 Dose: 100 mg Documented By: ELIAZAR Glucose (Glucose Gel 15 Gm Gel..Gram.) 15 gm PO Q15M PRN; Protocol PRN Reason: per Hypoglycemia Standing Ord. Dextrose (D10) 250 mls @ 750 mls/hr IV Q15M PRN; Protocol PRN Reason: per Hypoglycemia Standing Ord. Insulin Human Lispro (Insulin Lispro 100 Unit/Ml 3 Ml Vial) 0 unit SUBCUT QIDACHS [facility]; Protocol Last Admin: 01/23/23 07:49 Dose: 2 unit Documented By: ELIAZAR Metformin HCl (Metformin Hcl Er 500 Mg Tab.Er.24h) 2,000 mg PO DAILY [facility] Last Admin: 01/23/23 07:51 Dose: 2,000 mg Documented By: ELIAZAR Metoprolol Tartrate (Metoprolol Tartrate 25 Mg Tablet) 25 mg PO BID [facility]; Protocol Last Admin: 01/23/23 07:50 Dose: 25 mg Documented By: ELIAZAR Olanzapine (Olanzapine 10 Mg Vial) 5 mg IM DAILY PRN PRN Reason: agitation Olanzapine (Olanzapine 2.5 Mg Tablet) 2.5 mg PO Q4H PRN PRN Reason: Delirium Last Admin: 01/21/23 05:34 Dose: 2.5 mg Documented By: DOLORES Olanzapine (Olanzapine 2.5 Mg Tablet) 2.5 mg PO DAILY [facility] Last Admin: 01/23/23 07:51 Dose: 2.5 mg Documented By: ELIAZAR Ondansetron HCl (Ondansetron Hcl 4 Mg/2 Ml Vial) 4 mg IVPUSH Q8H PRN PRN Reason: Nausea and Vomiting Ondansetron HCl (Ondansetron Hcl 4 Mg/2 Ml Vial) 4 mg IVPUSH ONCE PRN PRN Reason: Nausea and Vomiting Pharmacy Consult (Consult Rx Perform Med Rec) 1 each MISCELLANE ONCE PRN PRN Reason: Consult order Pravastatin Sodium (Pravastatin Sodium 40 Mg Tablet) 40 mg PO BEDTIME [facility] Last Admin: 01/22/23 20:33 Dose: 40 mg Documented By: LEE ANN Sodium Chloride (0.9 % Sodium Chloride Flush 3 Ml Syringe) 3 ml IVFLUSH QSHIFT [facility] Last Admin: 01/23/23 07:49 Dose: 3 ml Documented By: ELIAZAR Tamsulosin HCl (Tamsulosin Hcl 0.4 Mg Capsule) 0.8 mg PO DAILY [facility] Last Admin: 01/23/23 07:49 Dose: 0.8 mg Documented By: ELIAZAR Labs 01/04/23 05:31 01/23/23 06:49 Labs: Laboratory Results - last 24 hr 01/22/23 01/22/23 01/22/23 11:09 16:57 19:58 Anion Gap Estim Creat Clear Calc Estimated GFR POC Glucose 264 H 169 H 184 H Random Glucose Calcium 01/23/23 01/23/23 06:49 07:23 Anion Gap 14 Estim Creat Clear Calc 51.2 Estimated GFR > 60 POC Glucose 160 H Random Glucose 150 H Calcium 9.6 D Assessment and Plan (1) Metabolic encephalopathy: Status: Acute (2) Prostate cancer: Status: Acute (3) Metastasis to bone: Status: Acute (4) Diabetes type 2, controlled: Status: Acute Plan ?82-year-old male with a PMH significant for recently diagnosed?AFib on Eliquis, [id number]-ijgeyubhm diabetes, and enlarged prostate who presents to the ED with?generalized weakness.? Patient recently presented to the emergency room 5 days prior on 12/26/2022 for evaluation of lower back pain.? Patient was found to have new onset AFib with RVR and a likely UTI.? CT scan of abdomen and pelvis found a marked heterogeneous enlargement the prostate gland with asymmetric nodular thickening of the left seminal vesicle concerning for primary malignancy.? Patient will be admitted to the hospital?for treatment and further evaluation of generalized weakness in the setting of ANTONELLA and UTI 1.Metastatic prostate cancer to bone(Bone Scan) -Adernocarcinoma/GG5 -Oxycodone prn for pain 2. Paroxysmal afib with rvr - acceptable rate control - adjust as indicated - continue Eliquis 3.Metabolic encephalopathy ( acute delirium in backdrop of chronic dementia) - likely natural progression of dementia - patient lacks capacity to make most medical decisions and unlikely to be able to live safely independently(psychiatry) -awaiting placement 4.ANTONELLA on CKD II - resolved after [facility] placement -consider voiding trial am - follow renals/divalents 5.DMI - acceptable control on current therapies -lispro correctional scale - adjust as indicated Eliquis full code Requires continued hospitalization: pending safe discharge to SNF Time Spent With Patient Time: Total time managing care of this patient today ____ minutes. Quality Stroke Does the patient have a stroke diagnosis?: No VTE Prior VTE?: No VTE Risk Level:: Medical - moderate - high VTE Device Contraindication: Treatment Not Indicated VTE Drug Contraindication: N/A - Med Ordered
[2023-01-23 15:23] VITALS: BP 110/55; PULSE 77; RESP 18; TEMP 36.4; O2SAT 97
--- NOTE | 2023-01-23 17:00 | PC.NURSE ---
IV oudated,Dr. Arevalo notified,OK to remove IV and keep it out
[2023-01-23 20:00] VITALS: BP 131/86; PULSE 85; RESP 20; TEMP 36.2; O2SAT 97
[2023-01-23] MEDS: Pravastatin Sodium 40 MG TABLET PO (20:47)
[2023-01-24 03:27] VITALS: BP 118/67; PULSE 85; RESP 16; TEMP 36.2; O2SAT 96
[2023-01-24] MEDS: Acetaminophen 325 MG TABLET 975 MG PO ×3 (05:36→17:27)
[2023-01-24 07:52] VITALS: BP 132/62; PULSE 80; RESP 16; TEMP 36.4; O2SAT 96
[2023-01-24] MEDS: Insulin Lispro 100 UNIT/ML 3 ML VIAL SUBCUT ×3 (07:56→21:33)
[2023-01-24] MEDS: Bicalutamide 50 MG TABLET PO ×3 (07:57→21:33)
[2023-01-24] MEDS: Tamsulosin HCL 0.4 MG CAPSULE 0.8 MG PO (07:57)
[2023-01-24] MEDS: Finasteride 5 MG TABLET PO (07:57)
[2023-01-24] MEDS: amLODIPine Besylate 5 MG TABLET PO (07:57)
[2023-01-24] MEDS: Metoprolol Tartrate 25 MG TABLET PO ×2 (07:57→21:33)
[2023-01-24] MEDS: OLANZapine 2.5 MG TABLET PO (07:57)
[2023-01-24] MEDS: Apixaban 2.5 MG TABLET PO ×2 (07:57→21:33)
[2023-01-24] MEDS: Gabapentin 100 MG CAPSULE PO ×2 (07:57→21:32)
[2023-01-24] MEDS: metFORMIN HCl ER 500 MG TAB.ER.24H 2000 MG PO (07:57)
--- NOTE | 2023-01-24 08:47 | MHC.CM.PN ---
PT AWAITING [facility] AND PLACEMENT PER NOTES, [facility] WAS SUBMITTED [facility] IS FOLLOWING CM WILL OBTAIN UPDATES FROM [facility] [place] [facility]
--- NOTE | 2023-01-24 11:00 | HO.PM.IMPN ---
Subjective Subjective Date of Service: 01/24/23 Interval History: remains confused but fairly cooperative Review of Systems unable to obtain Physical Exam Vital Signs: Vital Signs: Last Vital Signs Temp 97.6 F 01/24/23 07:52 Pulse 80 01/24/23 07:52 Resp 16 01/24/23 07:52 BP 132/62 01/24/23 07:52 Pulse Ox 96 01/24/23 07:52 O2 Del Method Room Air 01/24/23 07:52 O2 Flow Rate 2 01/19/23 22:40 Oxygen Flow Rate 3 01/10/23 18:20 BMI result Body Mass Index 24.2 Const: Other: awake alert. not oriented to person place or time. No acute distress Resp: Other: clear to auscultation bilaterally no rales rhonchi or wheezes Cardio: Other: no S4; positive S1-S2; no S3 murmurs rubs or gallops GI: Other: soft nontender nondistended normoactive bowel sounds x4 quadrants Neuro: Other: unable to do focused exam. Moves all extremities with equal power. . . Cranial nerves appear intact Extrem: Other: no edema bilaterally Objective Data Active Medications Acetaminophen (Acetaminophen 325 Mg Tablet) 650 mg PO ONCE PRN PRN Reason: Pain, Mild (Pain Scale 1-3) Acetaminophen (Acetaminophen 325 Mg Tablet) 975 mg PO Q6H [facility] Last Admin: 01/24/23 05:36 Dose: 975 mg Documented By: LUIS DANIEL Amlodipine Besylate (Amlodipine Besylate 5 Mg Tablet) 5 mg PO DAILY [facility]; Protocol Last Admin: 01/24/23 07:57 Dose: 5 mg Documented By: MACKENZIE Apixaban (Apixaban 2.5 Mg Tablet) 2.5 mg PO BID [facility] Last Admin: 01/24/23 07:57 Dose: 2.5 mg Documented By: MACKENZIE Bicalutamide (Bicalutamide 50 Mg Tablet) 50 mg PO TID [facility] Last Admin: 01/24/23 07:57 Dose: 50 mg Documented By: MACKENZIE Docusate Sodium (Docusate Sodium 100 Mg Capsule) 100 mg PO DAILY PRN PRN Reason: Constipation Last Admin: 01/05/23 08:05 Dose: 100 mg Documented By: MIKE Finasteride (Finasteride 5 Mg Tablet) 5 mg PO DAILY [facility] Last Admin: 01/24/23 07:57 Dose: 5 mg Documented By: MACKENZIE Gabapentin (Gabapentin 100 Mg Capsule) 100 mg PO BID [facility] Last Admin: 01/24/23 07:57 Dose: 100 mg Documented By: MACKENZIE Glucose (Glucose Gel 15 Gm Gel..Gram.) 15 gm PO Q15M PRN; Protocol PRN Reason: per Hypoglycemia Standing Ord. Dextrose (D10) 250 mls @ 750 mls/hr IV Q15M PRN; Protocol PRN Reason: per Hypoglycemia Standing Ord. Insulin Human Lispro (Insulin Lispro 100 Unit/Ml 3 Ml Vial) 0 unit SUBCUT QIDACHS [facility]; Protocol Last Admin: 01/24/23 07:56 Dose: 2 unit Documented By: MACKENZIE Metformin HCl (Metformin Hcl Er 500 Mg Tab.Er.24h) 2,000 mg PO DAILY [facility] Last Admin: 01/24/23 07:57 Dose: 2,000 mg Documented By: MACKENZIE Metoprolol Tartrate (Metoprolol Tartrate 25 Mg Tablet) 25 mg PO BID [facility]; Protocol Last Admin: 01/24/23 07:57 Dose: 25 mg Documented By: MACKENZIE Olanzapine (Olanzapine 10 Mg Vial) 5 mg IM DAILY PRN PRN Reason: agitation Olanzapine (Olanzapine 2.5 Mg Tablet) 2.5 mg PO Q4H PRN PRN Reason: Delirium Last Admin: 01/21/23 05:34 Dose: 2.5 mg Documented By: DOLORES Olanzapine (Olanzapine 2.5 Mg Tablet) 2.5 mg PO DAILY [facility] Last Admin: 01/24/23 07:57 Dose: 2.5 mg Documented By: MACKENZIE Ondansetron HCl (Ondansetron Hcl 4 Mg/2 Ml Vial) 4 mg IVPUSH Q8H PRN PRN Reason: Nausea and Vomiting Ondansetron HCl (Ondansetron Hcl 4 Mg/2 Ml Vial) 4 mg IVPUSH ONCE PRN PRN Reason: Nausea and Vomiting Pharmacy Consult (Consult Rx Perform Med Rec) 1 each MISCELLANE ONCE PRN PRN Reason: Consult order Pravastatin Sodium (Pravastatin Sodium 40 Mg Tablet) 40 mg PO BEDTIME [facility] Last Admin: 01/23/23 20:47 Dose: 40 mg Documented By: KATH Sodium Chloride (0.9 % Sodium Chloride Flush 3 Ml Syringe) 3 ml IVFLUSH QSHIFT [facility] Last Admin: 01/24/23 07:09 Dose: Not Given Documented By: MACKENZIE Non-Admin Reason: No Access Tamsulosin HCl (Tamsulosin Hcl 0.4 Mg Capsule) 0.8 mg PO DAILY [facility] Last Admin: 01/24/23 07:57 Dose: 0.8 mg Documented By: MACKENZIE Labs 01/04/23 05:31 01/23/23 06:49 Labs: Laboratory Results - last 24 hr 01/23/23 01/23/23 01/23/23 11:14 16:12 20:35 POC Glucose 179 H 145 H 178 H 01/24/23 07:19 POC Glucose 159 H Assessment and Plan (1) Pain due to malignant neoplasm metastatic to bone: Status: Acute (2) Prostate cancer: Status: Acute (3) ANTONELLA (acute kidney injury): Status: Acute (4) Cognitive disorder: Status: Acute Plan ?82-year-old male with a PMH significant for recently diagnosed?AFib on Eliquis, [id number] diabetes, and enlarged prostate who presents to the ED with?generalized weakness.? Patient recently presented to the emergency room 5 days prior on 12/26/2022 for evaluation of lower back pain.? Patient was found to have new onset AFib with RVR and a likely UTI.? CT scan of abdomen and pelvis found a marked heterogeneous enlargement the prostate gland with asymmetric nodular thickening of the left seminal vesicle concerning for primary malignancy.? 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 minimal use 2. Paroxysmal afib with rvr - acceptable rate control - adjust as indicated - continue Eliquis 3.Metabolic encephalopathy ( acute delirium in backdrop of chronic dementia) - likely natural progression of dementia - patient lacks capacity to make most medical decisions and unlikely to be able to live safely independently(psychiatry) - awaiting placement(insurance pending) 4.ANTONELLA on CKD II -resolved after [facility] placement -consider voiding trial am - follow renals/divalents 5.DMI - acceptable control on current therapies -lispro correctional scale - adjust as indicated Eliquis full code Requires continued hospitalization: pending safe discharge to SNF Time Spent With Patient Time: Total time managing care of this patient today ____ minutes. Quality Stroke Does the patient have a stroke diagnosis?: No VTE Prior VTE?: No VTE Risk Level:: Medical - moderate - high VTE Device Contraindication: Treatment Not Indicated VTE Drug Contraindication: N/A - Med Ordered
[2023-01-24 15:45] VITALS: BP 124/63; PULSE 78; RESP 19; TEMP 36.5; O2SAT 96
[2023-01-24 19:47] VITALS: BP 131/61; PULSE 77; RESP 18; TEMP 35.7; O2SAT 98
[2023-01-24] MEDS: Pravastatin Sodium 40 MG TABLET PO (21:32)
[2023-01-25 03:41] VITALS: BP 132/68; PULSE 74; RESP 19; TEMP 36.4; O2SAT 98
[2023-01-25] MEDS: Acetaminophen 325 MG TABLET 975 MG PO ×4 (05:32→23:45)
[2023-01-25 07:10] VITALS: BP 146/66; PULSE 86; RESP 16; TEMP 36.6; O2SAT 98
[2023-01-25] MEDS: Insulin Lispro 100 UNIT/ML 3 ML VIAL SUBCUT ×2 (07:55→11:53)
[2023-01-25] MEDS: metFORMIN HCl ER 500 MG TAB.ER.24H 2000 MG PO (07:56)
[2023-01-25] MEDS: Finasteride 5 MG TABLET PO (07:56)
[2023-01-25] MEDS: Apixaban 2.5 MG TABLET PO ×2 (07:56→21:17)
[2023-01-25] MEDS: Bicalutamide 50 MG TABLET PO ×3 (07:56→21:18)
[2023-01-25] MEDS: Metoprolol Tartrate 25 MG TABLET PO ×2 (07:56→21:17)
[2023-01-25] MEDS: OLANZapine 2.5 MG TABLET PO (07:56)
[2023-01-25] MEDS: amLODIPine Besylate 5 MG TABLET PO (07:56)
[2023-01-25] MEDS: Gabapentin 100 MG CAPSULE PO ×2 (07:56→21:18)
[2023-01-25] MEDS: Tamsulosin HCL 0.4 MG CAPSULE 0.8 MG PO (07:56)
--- NOTE | 2023-01-25 09:07 | HO.PM.IMPN ---
Subjective Subjective Date of Service: 01/25/23 Interval History: Resting comfortably in bed, no acute overnight events, no acute complaints. Review of Systems Unable to obtain. Physical Exam Vital Signs: Vital Signs: Last Vital Signs Temp 98 F 01/25/23 07:10 Pulse 86 01/25/23 07:10 Resp 16 01/25/23 07:10 BP 146/66 H 01/25/23 07:10 Pulse Ox 98 01/25/23 07:10 O2 Del Method Room Air 01/25/23 07:10 O2 Flow Rate 2 01/19/23 22:40 Oxygen Flow Rate 3 01/10/23 18:20 BMI result Body Mass Index 24.2 Const: Other: awake alert.? not oriented to person place or time.? N o acute distress A Resp:?? Other: ?clear to auscultation bilat erally no rales, n o wheeze Cardio:?? Other: ?no S4; po sitive S1-S2 GI:?? Other: ?soft non tender non distend ed,normal bowel so unds x4 quadrants Neuro:?? Other: ?unable to do focused exam.? Moves all extremi ties ,? Cranial ne rves appear intact Extrem:?? Other: ?no edema bilaterally Objective Data Active Medications Acetaminophen (Acetaminophen 325 Mg Tablet) 650 mg PO ONCE PRN PRN Reason: Pain, Mild (Pain Scale 1-3) Acetaminophen (Acetaminophen 325 Mg Tablet) 975 mg PO Q6H [facility] Last Admin: 01/25/23 05:32 Dose: 975 mg Documented By: LEE ANN Amlodipine Besylate (Amlodipine Besylate 5 Mg Tablet) 5 mg PO DAILY [facility]; Protocol Last Admin: 01/25/23 07:56 Dose: 5 mg Documented By: MACKENZIE Apixaban (Apixaban 2.5 Mg Tablet) 2.5 mg PO BID [facility] Last Admin: 01/25/23 07:56 Dose: 2.5 mg Documented By: MACKENZIE Bicalutamide (Bicalutamide 50 Mg Tablet) 50 mg PO TID [facility] Last Admin: 01/25/23 07:56 Dose: 50 mg Documented By: MACKENZIE Docusate Sodium (Docusate Sodium 100 Mg Capsule) 100 mg PO DAILY PRN PRN Reason: Constipation Last Admin: 01/05/23 08:05 Dose: 100 mg Documented By: MIKE Finasteride (Finasteride 5 Mg Tablet) 5 mg PO DAILY [facility] Last Admin: 01/25/23 07:56 Dose: 5 mg Documented By: MACKENZIE Gabapentin (Gabapentin 100 Mg Capsule) 100 mg PO BID [facility] Last Admin: 01/25/23 07:56 Dose: 100 mg Documented By: MACKENZIE Glucose (Glucose Gel 15 Gm Gel..Gram.) 15 gm PO Q15M PRN; Protocol PRN Reason: per Hypoglycemia Standing Ord. Dextrose (D10) 250 mls @ 750 mls/hr IV Q15M PRN; Protocol PRN Reason: per Hypoglycemia Standing Ord. Insulin Human Lispro (Insulin Lispro 100 Unit/Ml 3 Ml Vial) 0 unit SUBCUT QIDACHS [facility]; Protocol Last Admin: 01/25/23 07:55 Dose: 2 unit Documented By: MACKENZIE Metformin HCl (Metformin Hcl Er 500 Mg Tab.Er.24h) 2,000 mg PO DAILY [facility] Last Admin: 01/25/23 07:56 Dose: 2,000 mg Documented By: MACKENZIE Metoprolol Tartrate (Metoprolol Tartrate 25 Mg Tablet) 25 mg PO BID [facility]; Protocol Last Admin: 01/25/23 07:56 Dose: 25 mg Documented By: MACKENZIE Olanzapine (Olanzapine 10 Mg Vial) 5 mg IM DAILY PRN PRN Reason: agitation Olanzapine (Olanzapine 2.5 Mg Tablet) 2.5 mg PO Q4H PRN PRN Reason: Delirium Last Admin: 01/21/23 05:34 Dose: 2.5 mg Documented By: DOLORES Olanzapine (Olanzapine 2.5 Mg Tablet) 2.5 mg PO DAILY [facility] Last Admin: 01/25/23 07:56 Dose: 2.5 mg Documented By: MACKENZIE Ondansetron HCl (Ondansetron Hcl 4 Mg/2 Ml Vial) 4 mg IVPUSH Q8H PRN PRN Reason: Nausea and Vomiting Ondansetron HCl (Ondansetron Hcl 4 Mg/2 Ml Vial) 4 mg IVPUSH ONCE PRN PRN Reason: Nausea and Vomiting Pharmacy Consult (Consult Rx Perform Med Rec) 1 each MISCELLANE ONCE PRN PRN Reason: Consult order Pravastatin Sodium (Pravastatin Sodium 40 Mg Tablet) 40 mg PO BEDTIME [facility] Last Admin: 01/24/23 21:32 Dose: 40 mg Documented By: LUIS DANIEL Sodium Chloride (0.9 % Sodium Chloride Flush 3 Ml Syringe) 3 ml IVFLUSH QSHIFT [facility] Last Admin: 01/25/23 07:16 Dose: Not Given Documented By: MACKENZIE Non-Admin Reason: No Access Tamsulosin HCl (Tamsulosin Hcl 0.4 Mg Capsule) 0.8 mg PO DAILY [facility] Last Admin: 01/25/23 07:56 Dose: 0.8 mg Documented By: MACKENZIE Labs 01/04/23 05:31 01/23/23 06:49 Labs: Laboratory Results - last 24 hr 01/24/23 01/24/23 01/24/23 11:03 16:04 20:44 POC Glucose 211 H 106 164 H 01/25/23 07:10 POC Glucose 179 H Assessment and Plan (1) Pain due to malignant neoplasm metastatic to bone: Status: Acute (2) Prostate cancer: Status: Acute (3) ANTONELLA (acute kidney injury): Status: Acute (4) Cognitive disorder: Status: Acute Plan ?82-year-old male with a PMH significant for recently diagnosed?AFib on Eliquis, kiy-yhtepiy-dyrmjpiml diabetes, and enlarged prostate who presents to the ED with?generalized weakness.? Patient recently presented to the emergency room 5 days prior on 12/26/2022 for evaluation of lower back pain.? Patient was found to have new onset AFib with RVR and a likely UTI.? CT scan of abdomen and pelvis found a marked heterogeneous enlargement the prostate gland with asymmetric nodular thickening of the left seminal vesicle concerning for primary malignancy.? 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 Continue Casodex as per Urology 2. Paroxysmal afib with rvr - acceptable rate control, continue metoprolol and Eliquis 3.Metabolic encephalopathy ( acute delirium in backdrop of chronic dementia) - likely natural progression of dementia - patient lacks capacity to make most medical decisions and unlikely to be able to live safely independently(psychiatry) - awaiting placement(insurance pending) 4.ANTONELLA on CKD II -resolved after [facility] placement - follow renals/divalents, attempt voiding trial 5.DMI - acceptable control on metformin and lispro correctional scale - adjust as indicated Eliquis full code Requires continued hospitalization: pending safe discharge to SNF Time Spent With Patient Time: Total time managing care of this patient today ____ minutes. Quality Stroke Does the patient have a stroke diagnosis?: No VTE Prior VTE?: No VTE Risk Level:: Medical - moderate - high VTE Device Contraindication: Treatment Not Indicated VTE Drug Contraindication: N/A - Med Ordered
[2023-01-25 15:37] VITALS: BP 126/63; PULSE 75; RESP 18; TEMP 36.4; O2SAT 98
[2023-01-25 19:39] VITALS: BP 144/71; PULSE 83; RESP 16; TEMP 37.2; O2SAT 96
[2023-01-25] MEDS: Pravastatin Sodium 40 MG TABLET PO (21:18)
[2023-01-26 04:00] VITALS: BP 106/55; PULSE 83; RESP 20; TEMP 36.6; O2SAT 97
[2023-01-26] MEDS: Acetaminophen 325 MG TABLET 975 MG PO ×2 (05:55→16:54)
[2023-01-26 07:07] VITALS: BP 158/80; PULSE 74; RESP 18; TEMP 36.6; O2SAT 94
--- NOTE | 2023-01-26 09:40 | HO.PM.IMPN ---
Subjective Subjective Date of Service: 01/26/23 Physical Exam Vital Signs: Vital Signs: Last Vital Signs Temp 98 F 01/26/23 07:07 Pulse 18 L 01/26/23 07:07 Resp 18 01/26/23 07:07 BP 158/80 H 01/26/23 07:07 Pulse Ox 94 01/26/23 07:07 O2 Del Method Room Air 01/26/23 07:07 O2 Flow Rate 2 01/19/23 22:40 Oxygen Flow Rate 3 01/10/23 18:20 BMI result Body Mass Index 24.2 Const: Other: awake alert.? not oriented to person place or time.? N o acute distress A Resp:?? Other: ?clear to auscultation bilat erally no rales, n o wheeze Cardio:?? Other: ?no S4; po sitive S1-S2 GI:?? Other: ?soft non tender non distend ed,normal bowel so unds x4 quadrants Neuro:?? Other: ?unable to do focused exam.? Moves all extremi ties ,? Cranial ne rves appear intact Extrem:?? Other: ?no edema bilaterally Objective Data Active Medications Acetaminophen (Acetaminophen 325 Mg Tablet) 650 mg PO ONCE PRN PRN Reason: Pain, Mild (Pain Scale 1-3) Acetaminophen (Acetaminophen 325 Mg Tablet) 975 mg PO Q6H [facility] Last Admin: 01/26/23 05:55 Dose: 975 mg Documented By: PREETI Amlodipine Besylate (Amlodipine Besylate 5 Mg Tablet) 5 mg PO DAILY [facility]; Protocol Last Admin: 01/25/23 07:56 Dose: 5 mg Documented By: MACKENZIE Apixaban (Apixaban 2.5 Mg Tablet) 2.5 mg PO BID [facility] Last Admin: 01/25/23 21:17 Dose: 2.5 mg Documented By: PREETI Bicalutamide (Bicalutamide 50 Mg Tablet) 50 mg PO TID [facility] Last Admin: 01/25/23 21:18 Dose: 50 mg Documented By: PREETI Docusate Sodium (Docusate Sodium 100 Mg Capsule) 100 mg PO DAILY PRN PRN Reason: Constipation Last Admin: 01/05/23 08:05 Dose: 100 mg Documented By: MIKE Finasteride (Finasteride 5 Mg Tablet) 5 mg PO DAILY [facility] Last Admin: 01/25/23 07:56 Dose: 5 mg Documented By: MACKENZIE Gabapentin (Gabapentin 100 Mg Capsule) 100 mg PO BID [facility] Last Admin: 01/25/23 21:18 Dose: 100 mg Documented By: PREETI Glucose (Glucose Gel 15 Gm Gel..Gram.) 15 gm PO Q15M PRN; Protocol PRN Reason: per Hypoglycemia Standing Ord. Dextrose (D10) 250 mls @ 750 mls/hr IV Q15M PRN; Protocol PRN Reason: per Hypoglycemia Standing Ord. Insulin Human Lispro (Insulin Lispro 100 Unit/Ml 3 Ml Vial) 0 unit SUBCUT QIDACHS [facility]; Protocol Last Admin: 01/26/23 08:05 Dose: Not Given Documented By: RYAN Non-Admin Reason: No Insulin Coverage Metformin HCl (Metformin Hcl Er 500 Mg Tab.Er.24h) 2,000 mg PO DAILY [facility] Last Admin: 01/25/23 07:56 Dose: 2,000 mg Documented By: MACKENZIE Metoprolol Tartrate (Metoprolol Tartrate 25 Mg Tablet) 25 mg PO BID [facility]; Protocol Last Admin: 01/25/23 21:17 Dose: 25 mg Documented By: PREETI Olanzapine (Olanzapine 10 Mg Vial) 5 mg IM DAILY PRN PRN Reason: agitation Olanzapine (Olanzapine 2.5 Mg Tablet) 2.5 mg PO Q4H PRN PRN Reason: Delirium Last Admin: 01/21/23 05:34 Dose: 2.5 mg Documented By: DOLORES Olanzapine (Olanzapine 2.5 Mg Tablet) 2.5 mg PO DAILY [facility] Last Admin: 01/25/23 07:56 Dose: 2.5 mg Documented By: MACKENZIE Ondansetron HCl (Ondansetron Hcl 4 Mg/2 Ml Vial) 4 mg IVPUSH Q8H PRN PRN Reason: Nausea and Vomiting Ondansetron HCl (Ondansetron Hcl 4 Mg/2 Ml Vial) 4 mg IVPUSH ONCE PRN PRN Reason: Nausea and Vomiting Pharmacy Consult (Consult Rx Perform Med Rec) 1 each MISCELLANE ONCE PRN PRN Reason: Consult order Pravastatin Sodium (Pravastatin Sodium 40 Mg Tablet) 40 mg PO BEDTIME [facility] Last Admin: 01/25/23 21:18 Dose: 40 mg Documented By: PREETI Sodium Chloride (0.9 % Sodium Chloride Flush 3 Ml Syringe) 3 ml IVFLUSH QSHIFT [facility] Last Admin: 01/26/23 00:10 Dose: Not Given Documented By: PREETI Non-Admin Reason: No Access Tamsulosin HCl (Tamsulosin Hcl 0.4 Mg Capsule) 0.8 mg PO DAILY [facility] Last Admin: 01/25/23 07:56 Dose: 0.8 mg Documented By: MACKENZIE Labs 01/04/23 05:31 01/23/23 06:49 Labs: Laboratory Results - last 24 hr 01/25/23 01/25/23 01/25/23 11:09 16:00 20:47 POC Glucose 168 H 102 137 H 01/26/23 07:07 POC Glucose 120 H Assessment and Plan (1) Pain due to malignant neoplasm metastatic to bone: Status: Acute (2) Prostate cancer: Status: Acute (3) ANTONELLA (acute kidney injury): Status: Acute (4) Cognitive disorder: Status: Acute Plan 82-year-old male with a PMH significant for recently diagnosed?AFib on Eliquis, [id number]-eiisbathi diabetes, and enlarged prostate who presented to the ED with?generalized weakness.? Patient recently presented to the emergency room 5 days prior on 12/26/2022 for evaluation of lower back pain.? Patient was found to have new onset AFib with RVR and a likely UTI.? CT scan of abdomen and pelvis found a marked heterogeneous enlargement the prostate gland with asymmetric nodular thickening of the left seminal vesicle concerning for primary malignancy.? 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 Continue Casodex as per Urology Paroxysmal afib with rvr acceptable rate control, continue metoprolol and Eliquis Metabolic encephalopathy ( acute delirium in backdrop of chronic dementia) likely natural progression of dementia patient lacks capacity to make most medical decisions and unlikely to be able to live safely independently(psychiatry) awaiting placement(insurance pending) ANTONELLA on CKD II resolved after [facility] placement DMI acceptable control on metformin and lispro correctional scale paroxysmal afib Eliquis, lopressor full code dvt prophylaxis - on eliquis Requires continued hospitalization: pending safe discharge to SNF Time Spent With Patient Time: Total time managing care of this patient today ____ minutes. Quality Stroke Does the patient have a stroke diagnosis?: No VTE Prior VTE?: No VTE Risk Level:: Medical - moderate - high VTE Device Contraindication: Treatment Not Indicated VTE Drug Contraindication: N/A - Med Ordered
[2023-01-26] MEDS: Apixaban 2.5 MG TABLET PO ×2 (09:52→22:26)
[2023-01-26] MEDS: metFORMIN HCl ER 500 MG TAB.ER.24H 2000 MG PO (09:52)
[2023-01-26] MEDS: amLODIPine Besylate 5 MG TABLET PO (09:52)
[2023-01-26] MEDS: Tamsulosin HCL 0.4 MG CAPSULE 0.8 MG PO (09:53)
[2023-01-26] MEDS: Gabapentin 100 MG CAPSULE PO ×2 (09:53→22:26)
[2023-01-26] MEDS: OLANZapine 2.5 MG TABLET PO (09:53)
[2023-01-26] MEDS: Metoprolol Tartrate 25 MG TABLET PO ×2 (09:53→22:26)
[2023-01-26] MEDS: Finasteride 5 MG TABLET PO (09:55)
[2023-01-26] MEDS: Bicalutamide 50 MG TABLET PO ×3 (09:55→22:26)
[2023-01-26] MEDS: Insulin Lispro 100 UNIT/ML 3 ML VIAL SUBCUT ×2 (11:59→16:55)
--- NOTE | 2023-01-26 13:14 | MHC.CM.PN ---
EMR REVIEWED, PT AWAITING LTC PLACEMENT. PER [facility] [place] [facility], [facility] WAS RE-SUBMITTED (MORE PAPERWORK WAS NEEDED) ON 01/21. NO BED OFFERS AT THIS TIME, [facility] WILL NOT BE ABLE TO COVER THE COST OF HIS CASODEX MEDICATION EVEN WITH LTC BENEFIT. CM WILL CONTINUE TO AWAIT MH APPROVAL AND SEEK LTC BED.
[2023-01-26 16:00] VITALS: BP 130/62; PULSE 89; RESP 16; TEMP 36.8; O2SAT 97
[2023-01-26 19:30] VITALS: BP 118/61; PULSE 95; RESP 17; TEMP 36.9; O2SAT 96
[2023-01-26] MEDS: Pravastatin Sodium 40 MG TABLET PO (22:26)
[2023-01-27] MEDS: Acetaminophen 325 MG TABLET 975 MG PO ×2 (00:06→12:04)
[2023-01-27 04:00] VITALS: BP 124/58; PULSE 80; RESP 16; TEMP 36.2; O2SAT 94
[2023-01-27 07:02] VITALS: BP 131/59; PULSE 90; RESP 18; TEMP 37.3; O2SAT 96
[2023-01-27] MEDS: Insulin Lispro 100 UNIT/ML 3 ML VIAL SUBCUT ×2 (08:02→16:54)
[2023-01-27] MEDS: Gabapentin 100 MG CAPSULE PO ×2 (08:03→21:22)
[2023-01-27] MEDS: amLODIPine Besylate 5 MG TABLET PO (08:03)
[2023-01-27] MEDS: metFORMIN HCl ER 500 MG TAB.ER.24H 2000 MG PO (08:03)
[2023-01-27] MEDS: Apixaban 2.5 MG TABLET PO ×2 (08:03→21:22)
[2023-01-27] MEDS: OLANZapine 2.5 MG TABLET PO ×2 (08:03→18:25)
[2023-01-27] MEDS: Tamsulosin HCL 0.4 MG CAPSULE 0.8 MG PO (08:03)
[2023-01-27] MEDS: Metoprolol Tartrate 25 MG TABLET PO (08:03)
[2023-01-27] MEDS: Finasteride 5 MG TABLET PO (08:03)
[2023-01-27] MEDS: Bicalutamide 50 MG TABLET PO ×3 (08:03→21:22)
--- NOTE | 2023-01-27 08:50 | HO.PM.IMPN ---
Subjective Subjective Date of Service: 01/27/23 Interval History: no new complaints Physical Exam Vital Signs: Vital Signs: Last Vital Signs Temp 99.2 F 01/27/23 07:02 Pulse 90 01/27/23 07:02 Resp 18 01/27/23 07:02 BP 131/59 L 01/27/23 07:02 Pulse Ox 96 01/27/23 07:02 O2 Del Method Room Air 01/27/23 07:02 O2 Flow Rate 2 01/19/23 22:40 Oxygen Flow Rate 3 01/10/23 18:20 BMI result Body Mass Index 24.2 Const: Other: awake alert.? not oriented to person place or time.? N o acute distress A Resp:?? Other: ?clear to auscultation bilat erally no rales, n o wheeze Cardio:?? Other: ?no S4; po sitive S1-S2 GI:?? Other: ?soft non tender non distend ed,normal bowel so unds x4 quadrants Neuro:?? Other: ?unable to do focused exam.? Moves all extremi ties ,? Cranial ne rves appear intact Extrem:?? Other: ?no edema bilaterally Objective Data Active Medications Acetaminophen (Acetaminophen 325 Mg Tablet) 650 mg PO ONCE PRN PRN Reason: Pain, Mild (Pain Scale 1-3) Acetaminophen (Acetaminophen 325 Mg Tablet) 975 mg PO Q6H [facility] Last Admin: 01/27/23 05:53 Dose: Not Given Documented By: PREETI Non-Admin Reason: Patient Asleep Amlodipine Besylate (Amlodipine Besylate 5 Mg Tablet) 5 mg PO DAILY [facility]; Protocol Last Admin: 01/27/23 08:03 Dose: 5 mg Documented By: ROBERT Apixaban (Apixaban 2.5 Mg Tablet) 2.5 mg PO BID [facility] Last Admin: 01/27/23 08:03 Dose: 2.5 mg Documented By: ROBRET Bicalutamide (Bicalutamide 50 Mg Tablet) 50 mg PO TID [facility] Last Admin: 01/27/23 08:03 Dose: 50 mg Documented By: ROBERT Docusate Sodium (Docusate Sodium 100 Mg Capsule) 100 mg PO DAILY PRN PRN Reason: Constipation Last Admin: 01/05/23 08:05 Dose: 100 mg Documented By: MIKE Finasteride (Finasteride 5 Mg Tablet) 5 mg PO DAILY [facility] Last Admin: 01/27/23 08:03 Dose: 5 mg Documented By: ROBERT Gabapentin (Gabapentin 100 Mg Capsule) 100 mg PO BID [facility] Last Admin: 01/27/23 08:03 Dose: 100 mg Documented By: ROBERT Glucose (Glucose Gel 15 Gm Gel..Gram.) 15 gm PO Q15M PRN; Protocol PRN Reason: per Hypoglycemia Standing Ord. Dextrose (D10) 250 mls @ 750 mls/hr IV Q15M PRN; Protocol PRN Reason: per Hypoglycemia Standing Ord. Insulin Human Lispro (Insulin Lispro 100 Unit/Ml 3 Ml Vial) 0 unit SUBCUT QIDACHS [facility]; Protocol Last Admin: 01/27/23 08:02 Dose: 4 unit Documented By: ROBERT Metformin HCl (Metformin Hcl Er 500 Mg Tab.Er.24h) 2,000 mg PO DAILY [facility] Last Admin: 01/27/23 08:03 Dose: 2,000 mg Documented By: ROBERT Metoprolol Tartrate (Metoprolol Tartrate 25 Mg Tablet) 25 mg PO BID [facility]; Protocol Last Admin: 01/27/23 08:03 Dose: 25 mg Documented By: ROBERT Olanzapine (Olanzapine 10 Mg Vial) 5 mg IM DAILY PRN PRN Reason: agitation Olanzapine (Olanzapine 2.5 Mg Tablet) 2.5 mg PO Q4H PRN PRN Reason: Delirium Last Admin: 01/21/23 05:34 Dose: 2.5 mg Documented By: DOLORES Olanzapine (Olanzapine 2.5 Mg Tablet) 2.5 mg PO DAILY [facility] Last Admin: 01/27/23 08:03 Dose: 2.5 mg Documented By: ROBERT Ondansetron HCl (Ondansetron Hcl 4 Mg/2 Ml Vial) 4 mg IVPUSH Q8H PRN PRN Reason: Nausea and Vomiting Ondansetron HCl (Ondansetron Hcl 4 Mg/2 Ml Vial) 4 mg IVPUSH ONCE PRN PRN Reason: Nausea and Vomiting Pharmacy Consult (Consult Rx Perform Med Rec) 1 each MISCELLANE ONCE PRN PRN Reason: Consult order Pravastatin Sodium (Pravastatin Sodium 40 Mg Tablet) 40 mg PO BEDTIME [facility] Last Admin: 01/26/23 22:26 Dose: 40 mg Documented By: PREETI Sodium Chloride (0.9 % Sodium Chloride Flush 3 Ml Syringe) 3 ml IVFLUSH QSHIFT [facility] Last Admin: 01/27/23 00:09 Dose: Not Given Documented By: PREETI Non-Admin Reason: No Access Tamsulosin HCl (Tamsulosin Hcl 0.4 Mg Capsule) 0.8 mg PO DAILY [facility] Last Admin: 01/27/23 08:03 Dose: 0.8 mg Documented By: ROBERT Labs 01/04/23 05:31 01/23/23 06:49 Labs: Laboratory Results - last 24 hr 01/26/23 01/26/23 01/26/23 11:02 16:22 19:33 POC Glucose 168 H 156 H 130 H 01/27/23 07:05 POC Glucose 258 H Assessment and Plan (1) Pain due to malignant neoplasm metastatic to bone: Status: Acute (2) Prostate cancer: Status: Acute (3) ANTONELLA (acute kidney injury): Status: Acute (4) Cognitive disorder: Status: Acute Plan 82-year-old male with a PMH significant for recently diagnosed?AFib on Eliquis, [id number]-ikhzmsgoa diabetes, and enlarged prostate who presented to the ED with?generalized weakness.? Patient recently presented to the emergency room 5 days prior on 12/26/2022 for evaluation of lower back pain.? Patient was found to have new onset AFib with RVR and a likely UTI.? CT scan of abdomen and pelvis found a marked heterogeneous enlargement the prostate gland with asymmetric nodular thickening of the left seminal vesicle concerning for primary malignancy.? 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 Continue Casodex as per Urology Paroxysmal afib with rvr acceptable rate control, continue metoprolol and Eliquis Metabolic encephalopathy ( acute delirium in backdrop of chronic dementia) likely natural progression of dementia patient lacks capacity to make most medical decisions and unlikely to be able to live safely independently(psychiatry) awaiting placement(insurance pending) ANTONELLA on CKD II resolved after [facility] placement DMI acceptable control on metformin and lispro correctional scale paroxysmal afib Eliquis, lopressor full code dvt prophylaxis - on eliquis Requires continued hospitalization: pending safe discharge to SNF Time Spent With Patient Time: Total time managing care of this patient today ____ minutes. Quality Stroke Does the patient have a stroke diagnosis?: No VTE Prior VTE?: No VTE Risk Level:: Medical - moderate - high VTE Device Contraindication: Treatment Not Indicated VTE Drug Contraindication: N/A - Med Ordered
[2023-01-27] MEDS: 0.9 % Sodium Chloride Flush 3 ML SYRINGE IVFLUSH (09:16)
[2023-01-27 14:59] VITALS: BP 112/64; PULSE 86; RESP 18; TEMP 36.7; O2SAT 97
[2023-01-27] MEDS: Pravastatin Sodium 40 MG TABLET PO (21:22)
[2023-01-28 04:00] VITALS: BP 146/72; PULSE 114; RESP 16; TEMP 36.4; O2SAT 97
[2023-01-28] MEDS: Acetaminophen 325 MG TABLET 975 MG PO ×3 (05:34→17:10)
[2023-01-28 08:00] VITALS: BP 128/73; PULSE 88; RESP 16; TEMP 36.7; O2SAT 97
[2023-01-28] MEDS: Bicalutamide 50 MG TABLET PO ×3 (08:00→20:26)
[2023-01-28] MEDS: Metoprolol Tartrate 25 MG TABLET PO ×2 (08:00→20:26)
[2023-01-28] MEDS: metFORMIN HCl ER 500 MG TAB.ER.24H 2000 MG PO (08:00)
[2023-01-28] MEDS: Finasteride 5 MG TABLET PO (08:00)
[2023-01-28] MEDS: Gabapentin 100 MG CAPSULE PO ×2 (08:01→20:26)
[2023-01-28] MEDS: Apixaban 2.5 MG TABLET PO ×2 (08:01→20:26)
[2023-01-28] MEDS: Tamsulosin HCL 0.4 MG CAPSULE 0.8 MG PO (08:01)
[2023-01-28] MEDS: amLODIPine Besylate 5 MG TABLET PO (08:01)
[2023-01-28] MEDS: Insulin Lispro 100 UNIT/ML 3 ML VIAL SUBCUT ×4 (08:01→20:26)
[2023-01-28] MEDS: OLANZapine 2.5 MG TABLET PO (08:01)
--- NOTE | 2023-01-28 09:27 | MHC.CLN ---
F/U STAGE II TO COCCYX; REDNESS TO LEFT HEEL. DIET=DIABETIC 2000 KCALS. ENSURE MAX TID PROVIDES ADDITIONAL 450 KCALS, 90 G PROTEIN TO PROMOTE WOUND HEALING. CONTINUES WITH USUALLY GOOD INTAKE AT MEALS, 75-100%. FOLLOW FOR INTAKE AND WOUND HEALING. RD TO FOLLOW WEEKLY.
--- NOTE | 2023-01-28 09:39 | HO.PM.IMPN ---
Subjective Subjective Date of Service: 01/28/23 Interval History: no complaints Physical Exam Vital Signs: Vital Signs: Last Vital Signs Temp 98.1 F 01/28/23 08:00 Pulse 88 01/28/23 08:00 Resp 16 01/28/23 08:00 BP 128/73 01/28/23 08:00 Pulse Ox 97 01/28/23 08:00 O2 Del Method Room Air 01/28/23 08:00 O2 Flow Rate 2 01/19/23 22:40 Oxygen Flow Rate 3 01/10/23 18:20 BMI result Body Mass Index 24.2 Const: Other: awake alert.? not oriented to person place or time.? N o acute distress A Resp:?? Other: ?clear to auscultation bilat erally no rales, n o wheeze Cardio:?? Other: ?no S4; po sitive S1-S2 GI:?? Other: ?soft non tender non distend ed,normal bowel so unds x4 quadrants Neuro:?? Other: ?unable to do focused exam.? Moves all extremi ties ,? Cranial ne rves appear intact Extrem:?? Other: ?no edema bilaterally Objective Data Active Medications Acetaminophen (Acetaminophen 325 Mg Tablet) 650 mg PO ONCE PRN PRN Reason: Pain, Mild (Pain Scale 1-3) Acetaminophen (Acetaminophen 325 Mg Tablet) 975 mg PO Q6H [facility] Last Admin: 01/28/23 05:34 Dose: 975 mg Documented By: EVITA-JOZEB Amlodipine Besylate (Amlodipine Besylate 5 Mg Tablet) 5 mg PO DAILY [facility]; Protocol Last Admin: 01/28/23 08:01 Dose: 5 mg Documented By: MORENITAEMA Apixaban (Apixaban 2.5 Mg Tablet) 2.5 mg PO BID [facility] Last Admin: 01/28/23 08:01 Dose: 2.5 mg Documented By: COTEMA Bicalutamide (Bicalutamide 50 Mg Tablet) 50 mg PO TID [facility] Last Admin: 01/28/23 08:00 Dose: 50 mg Documented By: MORENITAEMA Docusate Sodium (Docusate Sodium 100 Mg Capsule) 100 mg PO DAILY PRN PRN Reason: Constipation Last Admin: 01/05/23 08:05 Dose: 100 mg Documented By: RIOSCEL Finasteride (Finasteride 5 Mg Tablet) 5 mg PO DAILY [facility] Last Admin: 01/28/23 08:00 Dose: 5 mg Documented By: COTEMA Gabapentin (Gabapentin 100 Mg Capsule) 100 mg PO BID [facility] Last Admin: 01/28/23 08:01 Dose: 100 mg Documented By: MORENITAEMA Glucose (Glucose Gel 15 Gm Gel..Gram.) 15 gm PO Q15M PRN; Protocol PRN Reason: per Hypoglycemia Standing Ord. Dextrose (D10) 250 mls @ 750 mls/hr IV Q15M PRN; Protocol PRN Reason: per Hypoglycemia Standing Ord. Insulin Human Lispro (Insulin Lispro 100 Unit/Ml 3 Ml Vial) 0 unit SUBCUT QIDACHS [facility]; Protocol Last Admin: 01/28/23 08:01 Dose: 2 unit Documented By: MORENITAEMA Metformin HCl (Metformin Hcl Er 500 Mg Tab.Er.24h) 2,000 mg PO DAILY [facility] Last Admin: 01/28/23 08:00 Dose: 2,000 mg Documented By: MORENITAEMA Metoprolol Tartrate (Metoprolol Tartrate 25 Mg Tablet) 25 mg PO BID [facility]; Protocol Last Admin: 01/28/23 08:00 Dose: 25 mg Documented By: MORENITAEMA Olanzapine (Olanzapine 10 Mg Vial) 5 mg IM DAILY PRN PRN Reason: agitation Olanzapine (Olanzapine 2.5 Mg Tablet) 2.5 mg PO Q4H PRN PRN Reason: Delirium Last Admin: 01/27/23 18:25 Dose: 2.5 mg Documented By: COTEMA Olanzapine (Olanzapine 2.5 Mg Tablet) 2.5 mg PO DAILY [facility] Last Admin: 01/28/23 08:01 Dose: 2.5 mg Documented By: MORENITAEMA Ondansetron HCl (Ondansetron Hcl 4 Mg/2 Ml Vial) 4 mg IVPUSH Q8H PRN PRN Reason: Nausea and Vomiting Ondansetron HCl (Ondansetron Hcl 4 Mg/2 Ml Vial) 4 mg IVPUSH ONCE PRN PRN Reason: Nausea and Vomiting Pharmacy Consult (Consult Rx Perform Med Rec) 1 each MISCELLANE ONCE PRN PRN Reason: Consult order Pravastatin Sodium (Pravastatin Sodium 40 Mg Tablet) 40 mg PO BEDTIME [facility] Last Admin: 01/27/23 21:22 Dose: 40 mg Documented By: ARELIS Sodium Chloride (0.9 % Sodium Chloride Flush 3 Ml Syringe) 3 ml IVFLUSH QSHIFT [facility] Last Admin: 01/28/23 08:01 Dose: Not Given Documented By: MADALYN Non-Admin Reason: No Access Tamsulosin HCl (Tamsulosin Hcl 0.4 Mg Capsule) 0.8 mg PO DAILY [facility] Last Admin: 01/28/23 08:01 Dose: 0.8 mg Documented By: MADALYN Labs 01/04/23 05:31 01/23/23 06:49 Labs: Laboratory Results - last 24 hr 01/27/23 01/27/23 01/28/23 10:58 16:10 07:19 POC Glucose 103 182 H 181 H Assessment and Plan (1) Pain due to malignant neoplasm metastatic to bone: Status: Acute (2) Prostate cancer: Status: Acute (3) ANTONELLA (acute kidney injury): Status: Acute (4) Cognitive disorder: Status: Acute Plan 82-year-old male with a PMH significant for recently diagnosed?AFib on Eliquis, [id number]-kvdqzvcsj diabetes, and enlarged prostate who presented to the ED with?generalized weakness.? Patient recently presented to the emergency room 5 days prior on 12/26/2022 for evaluation of lower back pain.? Patient was found to have new onset AFib with RVR and a likely UTI.? CT scan of abdomen and pelvis found a marked heterogeneous enlargement the prostate gland with asymmetric nodular thickening of the left seminal vesicle concerning for primary malignancy.? 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 Continue Casodex as per Urology Paroxysmal afib with rvr acceptable rate control, continue metoprolol and Eliquis Metabolic encephalopathy ( acute delirium in backdrop of chronic dementia) likely natural progression of dementia patient lacks capacity to make most medical decisions and unlikely to be able to live safely independently(psychiatry) awaiting placement(insurance pending) ANTONELLA on CKD II resolved after [facility] placement DMI acceptable control on metformin and lispro correctional scale paroxysmal afib Eliquis, lopressor full code dvt prophylaxis - on eliquis Requires continued hospitalization: pending safe discharge to SNF Time Spent With Patient Time: Total time managing care of this patient today ____ minutes. Quality Stroke Does the patient have a stroke diagnosis?: No VTE Prior VTE?: No VTE Risk Level:: Medical - moderate - high VTE Device Contraindication: Treatment Not Indicated VTE Drug Contraindication: N/A - Med Ordered
[2023-01-28 11:19] LABS: Glucose, Whole Blood 152 mg/dL (60-115)
--- NOTE | 2023-01-28 13:14 | MHC.CM.PN ---
EMR REVIEWED AND PER MD ROUNDS, PT IS AWAITING LTC PLACEMENT PENDING COMPLETION OF MH PROCESS. APPLICATION WAS SUBMITTED BY [facility] 01/21. [facility] IS REQUESTING A COPY OF [facility] AND BANK STATEMENTS. [employer] NOTIFIED AND WILL SEND DOCUMENTS VIA FAX TO BE SENT. CM WILL CONTINUE TO FOLLOW FOR DC NEEDS/PLAN.
[2023-01-28 15:16] VITALS: BP 119/61; PULSE 72; RESP 18; TEMP 36.3; O2SAT 97
[2023-01-28 19:18] VITALS: BP 121/62; PULSE 90; RESP 18; TEMP 36.5; O2SAT 97
[2023-01-28] MEDS: Pravastatin Sodium 40 MG TABLET PO (20:26)
[2023-01-29] MEDS: Acetaminophen 325 MG TABLET 975 MG PO ×3 (00:27→18:01)
[2023-01-29 03:26] VITALS: BP 145/65; PULSE 127; RESP 20; TEMP 37.2; O2SAT 92
--- NOTE | 2023-01-29 04:38 | PC.NURSE ---
0400 pt's heart rate 120's.EKG done showed at fib with rapid response with heart rate 114. notified.Pt.already on metoprolol 25mg po bid.no new orders at this time.
[2023-01-29 07:22] VITALS: BP 132/60; PULSE 105; RESP 18; TEMP 36.8; O2SAT 97
[2023-01-29] MEDS: OLANZapine 2.5 MG TABLET PO (07:48)
[2023-01-29] MEDS: Gabapentin 100 MG CAPSULE PO ×2 (07:48→20:17)
[2023-01-29] MEDS: Bicalutamide 50 MG TABLET PO ×3 (07:49→20:17)
[2023-01-29] MEDS: Metoprolol Tartrate 25 MG TABLET PO ×2 (07:49→20:17)
[2023-01-29] MEDS: metFORMIN HCl ER 500 MG TAB.ER.24H 2000 MG PO (07:49)
[2023-01-29] MEDS: amLODIPine Besylate 5 MG TABLET PO (07:49)
[2023-01-29] MEDS: Tamsulosin HCL 0.4 MG CAPSULE 0.8 MG PO (07:49)
[2023-01-29] MEDS: Insulin Lispro 100 UNIT/ML 3 ML VIAL SUBCUT ×2 (07:49→20:52)
[2023-01-29] MEDS: Finasteride 5 MG TABLET PO (07:49)
[2023-01-29] MEDS: Apixaban 2.5 MG TABLET PO ×2 (07:49→20:17)
--- NOTE | 2023-01-29 08:54 | HO.PM.IMPN ---
Subjective Subjective Date of Service: 01/29/23 Interval History: no complaints Physical Exam Vital Signs: Vital Signs: Last Vital Signs Temp 98.2 F 01/29/23 07:22 Pulse 105 H 01/29/23 07:22 Resp 18 01/29/23 07:22 BP 132/60 01/29/23 07:22 Pulse Ox 97 01/29/23 07:22 O2 Del Method Room Air 01/29/23 07:22 O2 Flow Rate 2 01/19/23 22:40 Oxygen Flow Rate 3 01/10/23 18:20 BMI result Body Mass Index 24.2 Const: Other: awake alert.? not oriented to person place or time.? N o acute distress A Resp:?? Other: ?clear to auscultation bilat erally no rales, n o wheeze Cardio:?? Other: ?no S4; po sitive S1-S2 GI:?? Other: ?soft non tender non distend ed,normal bowel so unds x4 quadrants Neuro:?? Other: ?unable to do focused exam.? Moves all extremi ties ,? Cranial ne rves appear intact Extrem:?? Other: ?no edema bilaterally Objective Data Active Medications Acetaminophen (Acetaminophen 325 Mg Tablet) 650 mg PO ONCE PRN PRN Reason: Pain, Mild (Pain Scale 1-3) Acetaminophen (Acetaminophen 325 Mg Tablet) 975 mg PO Q6H [facility] Last Admin: 01/29/23 06:11 Dose: 975 mg Documented By: VIANEY Amlodipine Besylate (Amlodipine Besylate 5 Mg Tablet) 5 mg PO DAILY [facility]; Protocol Last Admin: 01/29/23 07:49 Dose: 5 mg Documented By: RONALDO Apixaban (Apixaban 2.5 Mg Tablet) 2.5 mg PO BID [facility] Last Admin: 01/29/23 07:49 Dose: 2.5 mg Documented By: RONALDO Bicalutamide (Bicalutamide 50 Mg Tablet) 50 mg PO TID [facility] Last Admin: 01/29/23 07:49 Dose: 50 mg Documented By: RONALDO Docusate Sodium (Docusate Sodium 100 Mg Capsule) 100 mg PO DAILY PRN PRN Reason: Constipation Last Admin: 01/05/23 08:05 Dose: 100 mg Documented By: MIKE Finasteride (Finasteride 5 Mg Tablet) 5 mg PO DAILY [facility] Last Admin: 01/29/23 07:49 Dose: 5 mg Documented By: RONALDO Gabapentin (Gabapentin 100 Mg Capsule) 100 mg PO BID [facility] Last Admin: 01/29/23 07:48 Dose: 100 mg Documented By: RONALDO Glucose (Glucose Gel 15 Gm Gel..Gram.) 15 gm PO Q15M PRN; Protocol PRN Reason: per Hypoglycemia Standing Ord. Dextrose (D10) 250 mls @ 750 mls/hr IV Q15M PRN; Protocol PRN Reason: per Hypoglycemia Standing Ord. Insulin Human Lispro (Insulin Lispro 100 Unit/Ml 3 Ml Vial) 0 unit SUBCUT QIDACHS [facility]; Protocol Last Admin: 01/29/23 07:49 Dose: 2 unit Documented By: RONALDO Metformin HCl (Metformin Hcl Er 500 Mg Tab.Er.24h) 2,000 mg PO DAILY [facility] Last Admin: 01/29/23 07:49 Dose: 2,000 mg Documented By: RONALDO Metoprolol Tartrate (Metoprolol Tartrate 25 Mg Tablet) 25 mg PO BID [facility]; Protocol Last Admin: 01/29/23 07:49 Dose: 25 mg Documented By: RONALDO Olanzapine (Olanzapine 10 Mg Vial) 5 mg IM DAILY PRN PRN Reason: agitation Olanzapine (Olanzapine 2.5 Mg Tablet) 2.5 mg PO Q4H PRN PRN Reason: Delirium Last Admin: 01/27/23 18:25 Dose: 2.5 mg Documented By: COTKRISTI Olanzapine (Olanzapine 2.5 Mg Tablet) 2.5 mg PO DAILY [facility] Last Admin: 01/29/23 07:48 Dose: 2.5 mg Documented By: RONALDO Ondansetron HCl (Ondansetron Hcl 4 Mg/2 Ml Vial) 4 mg IVPUSH Q8H PRN PRN Reason: Nausea and Vomiting Ondansetron HCl (Ondansetron Hcl 4 Mg/2 Ml Vial) 4 mg IVPUSH ONCE PRN PRN Reason: Nausea and Vomiting Pharmacy Consult (Consult Rx Perform Med Rec) 1 each MISCELLANE ONCE PRN PRN Reason: Consult order Pravastatin Sodium (Pravastatin Sodium 40 Mg Tablet) 40 mg PO BEDTIME [facility] Last Admin: 01/28/23 20:26 Dose: 40 mg Documented By: VIANEY Sodium Chloride (0.9 % Sodium Chloride Flush 3 Ml Syringe) 3 ml IVFLUSH QSHIFT [facility] Last Admin: 01/29/23 07:49 Dose: Not Given Documented By: RONALDO Non-Admin Reason: No Access Tamsulosin HCl (Tamsulosin Hcl 0.4 Mg Capsule) 0.8 mg PO DAILY [facility] Last Admin: 01/29/23 07:49 Dose: 0.8 mg Documented By: RONALDO Labs 01/04/23 05:31 01/23/23 06:49 Labs: Laboratory Results - last 24 hr 01/28/23 01/28/23 01/28/23 11:15 16:00 20:16 POC Glucose 152 H 188 H 167 H 01/29/23 07:26 POC Glucose 163 H Assessment and Plan (1) Pain due to malignant neoplasm metastatic to bone: Status: Acute (2) Prostate cancer: Status: Acute (3) ANTONELLA (acute kidney injury): Status: Acute (4) Cognitive disorder: Status: Acute Plan 82-year-old male with a PMH significant for recently diagnosed?AFib on Eliquis, dro-[id number]-[id number] diabetes, and enlarged prostate who presented to the ED with?generalized weakness.? Patient recently presented to the emergency room 5 days prior on 12/26/2022 for evaluation of lower back pain.? Patient was found to have new onset AFib with RVR and a likely UTI.? CT scan of abdomen and pelvis found a marked heterogeneous enlargement the prostate gland with asymmetric nodular thickening of the left seminal vesicle concerning for primary malignancy.? 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 Continue Casodex as per Urology Paroxysmal afib with rvr acceptable rate control, continue metoprolol and Eliquis Metabolic encephalopathy ( acute delirium in backdrop of chronic dementia) likely natural progression of dementia patient lacks capacity to make most medical decisions and unlikely to be able to live safely independently(psychiatry) awaiting placement(insurance pending) ANTONELLA on CKD II resolved after [facility] placement DMI acceptable control on metformin and lispro correctional scale paroxysmal afib Eliquis, lopressor full code dvt prophylaxis - on eliquis Requires continued hospitalization: pending safe discharge to SNF Time Spent With Patient Time: Total time managing care of this patient today ____ minutes. Quality Stroke Does the patient have a stroke diagnosis?: No VTE Prior VTE?: No VTE Risk Level:: Medical - moderate - high VTE Device Contraindication: Treatment Not Indicated VTE Drug Contraindication: N/A - Med Ordered
[2023-01-29 16:00] VITALS: BP 108/56; PULSE 94; RESP 20; TEMP 36.6; O2SAT 92
[2023-01-29 19:57] VITALS: BP 121/57; PULSE 98; RESP 20; TEMP 36.4; O2SAT 95
[2023-01-29] MEDS: Pravastatin Sodium 40 MG TABLET PO (20:17)
[2023-01-30 03:03] VITALS: BP 116/62; PULSE 96; RESP 16; TEMP 37.1; O2SAT 92
[2023-01-30] MEDS: Acetaminophen 325 MG TABLET 975 MG PO ×3 (05:34→17:09)
[2023-01-30 08:00] VITALS: BP 121/56; PULSE 93; RESP 18; TEMP 36.4; O2SAT 91
[2023-01-30] MEDS: metFORMIN HCl ER 500 MG TAB.ER.24H 2000 MG PO (08:54)
[2023-01-30] MEDS: OLANZapine 2.5 MG TABLET PO (08:55)
[2023-01-30] MEDS: Tamsulosin HCL 0.4 MG CAPSULE 0.8 MG PO (08:55)
[2023-01-30] MEDS: Apixaban 2.5 MG TABLET PO ×2 (08:55→21:12)
[2023-01-30] MEDS: amLODIPine Besylate 5 MG TABLET PO (08:55)
[2023-01-30] MEDS: Finasteride 5 MG TABLET PO (08:55)
[2023-01-30] MEDS: Metoprolol Tartrate 25 MG TABLET PO ×2 (08:55→21:12)
[2023-01-30] MEDS: Bicalutamide 50 MG TABLET PO ×3 (08:55→21:12)
[2023-01-30] MEDS: Gabapentin 100 MG CAPSULE PO ×2 (08:55→21:12)
--- NOTE | 2023-01-30 09:22 | HO.PM.IMPN ---
Subjective Subjective Date of Service: 01/30/23 Interval History: cough Physical Exam Vital Signs: Vital Signs: Last Vital Signs Temp 97.5 F 01/30/23 08:00 Pulse 93 01/30/23 08:00 Resp 18 01/30/23 08:00 BP 121/56 L 01/30/23 08:00 Pulse Ox 91 L 01/30/23 08:00 O2 Del Method Nasal Cannula 01/30/23 08:00 O2 Flow Rate 3 01/30/23 08:00 Oxygen Flow Rate 3 01/10/23 18:20 BMI result Body Mass Index 24.2 Const: Other: awake alert.? not oriented to person place or time.? N o acute distress A Resp:?? Other: ?clear to auscultation bilat erally no rales, n o wheeze Cardio:?? Other: ?no S4; po sitive S1-S2 GI:?? Other: ?soft non tender non distend ed,normal bowel so unds x4 quadrants Neuro:?? Other: ?unable to do focused exam.? Moves all extremi ties ,? Cranial ne rves appear intact Extrem:?? Other: ?no edema bilaterally Objective Data Active Medications Acetaminophen (Acetaminophen 325 Mg Tablet) 650 mg PO ONCE PRN PRN Reason: Pain, Mild (Pain Scale 1-3) Acetaminophen (Acetaminophen 325 Mg Tablet) 975 mg PO Q6H [facility] Last Admin: 01/30/23 05:34 Dose: 975 mg Documented By: VIANEY Amlodipine Besylate (Amlodipine Besylate 5 Mg Tablet) 5 mg PO DAILY [facility]; Protocol Last Admin: 01/30/23 08:55 Dose: 5 mg Documented By: MACKENZIE Apixaban (Apixaban 2.5 Mg Tablet) 2.5 mg PO BID [facility] Last Admin: 01/30/23 08:55 Dose: 2.5 mg Documented By: MACKENZIE Bicalutamide (Bicalutamide 50 Mg Tablet) 50 mg PO TID [facility] Last Admin: 01/30/23 08:55 Dose: 50 mg Documented By: MACKENZIE Docusate Sodium (Docusate Sodium 100 Mg Capsule) 100 mg PO DAILY PRN PRN Reason: Constipation Last Admin: 01/05/23 08:05 Dose: 100 mg Documented By: MIKE Finasteride (Finasteride 5 Mg Tablet) 5 mg PO DAILY [facility] Last Admin: 01/30/23 08:55 Dose: 5 mg Documented By: MACKENZIE Gabapentin (Gabapentin 100 Mg Capsule) 100 mg PO BID [facility] Last Admin: 01/30/23 08:55 Dose: 100 mg Documented By: MACKENZIE Glucose (Glucose Gel 15 Gm Gel..Gram.) 15 gm PO Q15M PRN; Protocol PRN Reason: per Hypoglycemia Standing Ord. Dextrose (D10) 250 mls @ 750 mls/hr IV Q15M PRN; Protocol PRN Reason: per Hypoglycemia Standing Ord. Insulin Human Lispro (Insulin Lispro 100 Unit/Ml 3 Ml Vial) 0 unit SUBCUT QIDACHS [facility]; Protocol Last Admin: 01/30/23 08:04 Dose: Not Given Documented By: MACKENZIE Non-Admin Reason: No Insulin Coverage Metformin HCl (Metformin Hcl Er 500 Mg Tab.Er.24h) 2,000 mg PO DAILY [facility] Last Admin: 01/30/23 08:54 Dose: 2,000 mg Documented By: MACKENZIE Metoprolol Tartrate (Metoprolol Tartrate 25 Mg Tablet) 25 mg PO BID [facility]; Protocol Last Admin: 01/30/23 08:55 Dose: 25 mg Documented By: MACKENZIE Olanzapine (Olanzapine 10 Mg Vial) 5 mg IM DAILY PRN PRN Reason: agitation Olanzapine (Olanzapine 2.5 Mg Tablet) 2.5 mg PO Q4H PRN PRN Reason: Delirium Last Admin: 01/27/23 18:25 Dose: 2.5 mg Documented By: MADALYN Olanzapine (Olanzapine 2.5 Mg Tablet) 2.5 mg PO DAILY [facility] Last Admin: 01/30/23 08:55 Dose: 2.5 mg Documented By: MACKENZIE Ondansetron HCl (Ondansetron Hcl 4 Mg/2 Ml Vial) 4 mg IVPUSH Q8H PRN PRN Reason: Nausea and Vomiting Ondansetron HCl (Ondansetron Hcl 4 Mg/2 Ml Vial) 4 mg IVPUSH ONCE PRN PRN Reason: Nausea and Vomiting Pharmacy Consult (Consult Rx Perform Med Rec) 1 each MISCELLANE ONCE PRN PRN Reason: Consult order Pravastatin Sodium (Pravastatin Sodium 40 Mg Tablet) 40 mg PO BEDTIME [facility] Last Admin: 01/29/23 20:17 Dose: 40 mg Documented By: VIANEY Sodium Chloride (0.9 % Sodium Chloride Flush 3 Ml Syringe) 3 ml IVFLUSH QSHIFT [facility] Last Admin: 01/30/23 08:05 Dose: Not Given Documented By: MACKENZIE Non-Admin Reason: No Access Tamsulosin HCl (Tamsulosin Hcl 0.4 Mg Capsule) 0.8 mg PO DAILY [facility] Last Admin: 01/30/23 08:55 Dose: 0.8 mg Documented By: MACKENZIE Labs 01/04/23 05:31 01/23/23 06:49 Labs: Laboratory Results - last 24 hr 01/29/23 01/29/23 01/29/23 11:24 16:14 20:35 POC Glucose 139 H 144 H 287 H 01/30/23 07:41 POC Glucose 122 H Assessment and Plan (1) Pain due to malignant neoplasm metastatic to bone: Status: Acute (2) Prostate cancer: Status: Acute (3) ANTONELLA (acute kidney injury): Status: Acute (4) Cognitive disorder: Status: Acute Plan 82-year-old male with a PMH significant for recently diagnosed?AFib on Eliquis, rqf-cvwxwlu-jaubxbuko diabetes, and enlarged prostate who presented to the ED with?generalized weakness.? Patient recently presented to the emergency room 5 days prior on 12/26/2022 for evaluation of lower back pain.? Patient was found to have new onset AFib with RVR and a likely UTI.? CT scan of abdomen and pelvis found a marked heterogeneous enlargement the prostate gland with asymmetric nodular thickening of the left seminal vesicle concerning for primary malignancy.? 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 Continue Casodex as per Urology acute hypoxic respiratory failure suspect aspiration pneumonitis vs mucus plugging check cxr wean o2 as tolerated Paroxysmal afib with rvr acceptable rate control, continue metoprolol and Eliquis Metabolic encephalopathy ( acute delirium in backdrop of chronic dementia) likely natural progression of dementia patient lacks capacity to make most medical decisions and unlikely to be able to live safely independently(psychiatry) awaiting placement(insurance pending) ANTONELLA on CKD II resolved after [facility] placement DMI acceptable control on metformin and lispro correctional scale paroxysmal afib Eliquis, lopressor full code dvt prophylaxis - on eliquis Requires continued hospitalization: pending safe discharge to SNF Time Spent With Patient Time: Total time managing care of this patient today ____ minutes. Quality Stroke Does the patient have a stroke diagnosis?: No VTE Prior VTE?: No VTE Risk Level:: Medical - moderate - high VTE Device Contraindication: Treatment Not Indicated VTE Drug Contraindication: N/A - Med Ordered
[2023-01-30] MEDS: Insulin Lispro 100 UNIT/ML 3 ML VIAL SUBCUT ×2 (11:57→21:12)
[2023-01-30 15:35] VITALS: BP 109/52; PULSE 98; RESP 20; TEMP 36.8; O2SAT 96
[2023-01-30 19:26] VITALS: BP 117/55; PULSE 95; RESP 20; TEMP 36.4; O2SAT 96
[2023-01-30] MEDS: Pravastatin Sodium 40 MG TABLET PO (21:12)
[2023-01-31] MEDS: Acetaminophen 325 MG TABLET 975 MG PO ×3 (02:27→17:07)
[2023-01-31 03:21] VITALS: BP 100/63; RESP 16; TEMP 36.5; O2SAT 93
[2023-01-31 07:23] VITALS: BP 131/58; PULSE 82; RESP 18; TEMP 36.4; O2SAT 97
[2023-01-31] MEDS: Insulin Lispro 100 UNIT/ML 3 ML VIAL SUBCUT ×3 (08:12→20:29)
[2023-01-31] MEDS: Finasteride 5 MG TABLET PO (08:12)
[2023-01-31] MEDS: OLANZapine 2.5 MG TABLET PO (08:12)
[2023-01-31] MEDS: metFORMIN HCl ER 500 MG TAB.ER.24H 2000 MG PO (08:12)
[2023-01-31] MEDS: Metoprolol Tartrate 25 MG TABLET PO ×2 (08:12→20:29)
[2023-01-31] MEDS: Tamsulosin HCL 0.4 MG CAPSULE 0.8 MG PO (08:12)
[2023-01-31] MEDS: Apixaban 2.5 MG TABLET PO ×2 (08:12→20:29)
[2023-01-31] MEDS: amLODIPine Besylate 5 MG TABLET PO (08:13)
[2023-01-31] MEDS: Gabapentin 100 MG CAPSULE PO ×2 (08:13→20:29)
[2023-01-31] MEDS: Bicalutamide 50 MG TABLET PO ×3 (08:13→20:31)
--- NOTE | 2023-01-31 08:49 | HO.PM.IMPN ---
Subjective Subjective Date of Service: 01/31/23 Interval History: no complaints Physical Exam Vital Signs: Vital Signs: Last Vital Signs Temp 97.6 F 01/31/23 07:23 Pulse 82 01/31/23 07:23 Resp 18 01/31/23 07:23 BP 131/58 L 01/31/23 07:23 Pulse Ox 97 01/31/23 07:23 O2 Del Method Room Air 01/31/23 07:23 O2 Flow Rate 2 01/19/23 22:40 Oxygen Flow Rate 3 01/10/23 18:20 BMI result Body Mass Index 24.2 Const: Other: awake alert.? not oriented to person place or time.? N o acute distress A Resp:?? Other: ?clear to auscultation bilat erally no rales, n o wheeze Cardio:?? Other: ?no S4; po sitive S1-S2 GI:?? Other: ?soft non tender non distend ed,normal bowel so unds x4 quadrants Neuro:?? Other: ?unable to do focused exam.? Moves all extremi ties ,? Cranial ne rves appear intact Extrem:?? Other: ?no edema bilaterally Objective Data Active Medications Acetaminophen (Acetaminophen 325 Mg Tablet) 650 mg PO ONCE PRN PRN Reason: Pain, Mild (Pain Scale 1-3) Acetaminophen (Acetaminophen 325 Mg Tablet) 975 mg PO Q6H [facility] Last Admin: 01/31/23 05:26 Dose: Not Given Documented By: LEE ANN Non-Admin Reason: previous given off schedule, pt asleep Comments: previous dose given off schedule, pt also asleep Amlodipine Besylate (Amlodipine Besylate 5 Mg Tablet) 5 mg PO DAILY [facility]; Protocol Last Admin: 01/31/23 08:13 Dose: 5 mg Documented By: MACKENZIE Apixaban (Apixaban 2.5 Mg Tablet) 2.5 mg PO BID [facility] Last Admin: 01/31/23 08:12 Dose: 2.5 mg Documented By: MACKENZIE Bicalutamide (Bicalutamide 50 Mg Tablet) 50 mg PO TID [facility] Last Admin: 01/31/23 08:13 Dose: 50 mg Documented By: MACKENZIE Docusate Sodium (Docusate Sodium 100 Mg Capsule) 100 mg PO DAILY PRN PRN Reason: Constipation Last Admin: 01/05/23 08:05 Dose: 100 mg Documented By: MIKE Finasteride (Finasteride 5 Mg Tablet) 5 mg PO DAILY [facility] Last Admin: 01/31/23 08:12 Dose: 5 mg Documented By: MACKENZIE Gabapentin (Gabapentin 100 Mg Capsule) 100 mg PO BID [facility] Last Admin: 01/31/23 08:13 Dose: 100 mg Documented By: MACKENZIE Glucose (Glucose Gel 15 Gm Gel..Gram.) 15 gm PO Q15M PRN; Protocol PRN Reason: per Hypoglycemia Standing Ord. Dextrose (D10) 250 mls @ 750 mls/hr IV Q15M PRN; Protocol PRN Reason: per Hypoglycemia Standing Ord. Insulin Human Lispro (Insulin Lispro 100 Unit/Ml 3 Ml Vial) 0 unit SUBCUT QIDACHS [facility]; Protocol Last Admin: 01/31/23 08:12 Dose: 4 unit Documented By: MACKENZIE Metformin HCl (Metformin Hcl Er 500 Mg Tab.Er.24h) 2,000 mg PO DAILY [facility] Last Admin: 01/31/23 08:12 Dose: 2,000 mg Documented By: MACKENZIE Metoprolol Tartrate (Metoprolol Tartrate 25 Mg Tablet) 25 mg PO BID [facility]; Protocol Last Admin: 01/31/23 08:12 Dose: 25 mg Documented By: MACKENZIE Olanzapine (Olanzapine 10 Mg Vial) 5 mg IM DAILY PRN PRN Reason: agitation Olanzapine (Olanzapine 2.5 Mg Tablet) 2.5 mg PO Q4H PRN PRN Reason: Delirium Last Admin: 01/27/23 18:25 Dose: 2.5 mg Documented By: MORENITAEMA Olanzapine (Olanzapine 2.5 Mg Tablet) 2.5 mg PO DAILY [facility] Last Admin: 01/31/23 08:12 Dose: 2.5 mg Documented By: MACKENZIE Ondansetron HCl (Ondansetron Hcl 4 Mg/2 Ml Vial) 4 mg IVPUSH Q8H PRN PRN Reason: Nausea and Vomiting Ondansetron HCl (Ondansetron Hcl 4 Mg/2 Ml Vial) 4 mg IVPUSH ONCE PRN PRN Reason: Nausea and Vomiting Pharmacy Consult (Consult Rx Perform Med Rec) 1 each MISCELLANE ONCE PRN PRN Reason: Consult order Pravastatin Sodium (Pravastatin Sodium 40 Mg Tablet) 40 mg PO BEDTIME [facility] Last Admin: 01/30/23 21:12 Dose: 40 mg Documented By: LEE ANN Sodium Chloride (0.9 % Sodium Chloride Flush 3 Ml Syringe) 3 ml IVFLUSH QSHIFT [facility] Last Admin: 01/31/23 08:13 Dose: Not Given Documented By: MACKENZIE Non-Admin Reason: No Access Tamsulosin HCl (Tamsulosin Hcl 0.4 Mg Capsule) 0.8 mg PO DAILY [facility] Last Admin: 01/31/23 08:12 Dose: 0.8 mg Documented By: MACKENZIE Labs 01/31/23 06:18 01/31/23 06:18 Labs: Laboratory Results - last 24 hr 01/30/23 01/30/23 01/30/23 11:17 16:05 20:46 MCV MCH MCHC RDW Plt Count MPV Absolute Nucleated RBC Nucleated RBC % (auto) Anion Gap Estim Creat Clear Calc Estimated GFR POC Glucose 176 H 148 H 216 H Fasting Glucose Calcium 01/31/23 01/31/23 01/31/23 06:18 06:18 07:25 MCV 89.7 MCH 29.9 MCHC 33.3 RDW 13.3 Plt Count 279 MPV 10.0 Absolute Nucleated RBC 0.000 Nucleated RBC % (auto) 0.0 Anion Gap 14 Estim Creat Clear Calc 47.0 Estimated GFR > 60 POC Glucose 214 H Fasting Glucose 244 H Calcium 9.3 Assessment and Plan (1) Pain due to malignant neoplasm metastatic to bone: Status: Acute (2) Prostate cancer: Status: Acute (3) ANTONELLA (acute kidney injury): Status: Acute (4) Cognitive disorder: Status: Acute Plan 82-year-old male with a PMH significant for recently diagnosed?AFib on Eliquis, dad-ebffdga-puagubumq diabetes, and enlarged prostate who presented to the ED with?generalized weakness.? Patient recently presented to the emergency room 5 days prior on 12/26/2022 for evaluation of lower back pain.? Patient was found to have new onset AFib with RVR and a likely UTI.? CT scan of abdomen and pelvis found a marked heterogeneous enlargement the prostate gland with asymmetric nodular thickening of the left seminal vesicle concerning for primary malignancy.? 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 Continue Casodex as per Urology acute hypoxic respiratory failure suspect aspiration pneumonitis vs mucus plugging check cxr wean o2 as tolerated Paroxysmal afib with rvr acceptable rate control, continue metoprolol and Eliquis Metabolic encephalopathy ( acute delirium in backdrop of chronic dementia) likely natural progression of dementia patient lacks capacity to make most medical decisions and unlikely to be able to live safely independently(psychiatry) awaiting placement(insurance pending) ANTONELLA on CKD II resolved after [facility] placement DMI acceptable control on metformin and lispro correctional scale paroxysmal afib Eliquis, lopressor full code dvt prophylaxis - on eliquis Requires continued hospitalization: pending safe discharge to SNF Time Spent With Patient Time: Total time managing care of this patient today ____ minutes. Quality Stroke Does the patient have a stroke diagnosis?: No VTE Prior VTE?: No VTE Risk Level:: Medical - moderate - high VTE Device Contraindication: Treatment Not Indicated VTE Drug Contraindication: N/A - Med Ordered
[2023-01-31 15:36] VITALS: BP 119/56; PULSE 85; RESP 16; TEMP 36.9; O2SAT 96
--- NOTE | 2023-01-31 15:48 | MHC.CM.PN ---
per rounds pt remains pending mh prior to placement
[2023-01-31 19:18] VITALS: BP 128/58; PULSE 82; RESP 17; TEMP 36.4; O2SAT 94
[2023-01-31 20:08] LABS: Glucose, Whole Blood 155 mg/dL (60-115)
[2023-01-31] MEDS: Pravastatin Sodium 40 MG TABLET PO (20:29)
[2023-02-01] MEDS: Acetaminophen 325 MG TABLET 975 MG PO ×2 (00:19→16:31)
[2023-02-01 02:59] VITALS: BP 139/66; PULSE 86; RESP 16; TEMP 36.7; O2SAT 97
[2023-02-01 07:25] VITALS: BP 167/79; PULSE 87; RESP 16; TEMP 36.2; O2SAT 96
[2023-02-01 07:46] LABS: Glucose, Whole Blood 129 mg/dL (60-115)
[2023-02-01] MEDS: Gabapentin 100 MG CAPSULE PO ×2 (08:41→20:28)
[2023-02-01] MEDS: Bicalutamide 50 MG TABLET PO ×3 (08:41→20:28)
[2023-02-01] MEDS: Finasteride 5 MG TABLET PO (08:41)
--- NOTE | 2023-02-01 08:41 | HO.PM.IMPN ---
Subjective Subjective Date of Service: 02/01/23 Interval History: no complaints Physical Exam Vital Signs: Vital Signs: Last Vital Signs Temp 97.1 F 02/01/23 07:25 Pulse 87 02/01/23 07:25 Resp 16 02/01/23 07:25 BP 167/79 H 02/01/23 07:25 Pulse Ox 96 02/01/23 07:25 O2 Del Method Room Air 02/01/23 07:25 O2 Flow Rate 2 01/19/23 22:40 Oxygen Flow Rate 3 01/10/23 18:20 BMI result Body Mass Index 24.2 Const: Other: awake alert.? not oriented to person place or time.? N o acute distress A Resp:?? Other: ?clear to auscultation bilat erally no rales, n o wheeze Cardio:?? Other: ?no S4; po sitive S1-S2 GI:?? Other: ?soft non tender non distend ed,normal bowel so unds x4 quadrants Neuro:?? Other: ?unable to do focused exam.? Moves all extremi ties ,? Cranial ne rves appear intact Extrem:?? Other: ?no edema bilaterally Objective Data Active Medications Acetaminophen (Acetaminophen 325 Mg Tablet) 650 mg PO ONCE PRN PRN Reason: Pain, Mild (Pain Scale 1-3) Acetaminophen (Acetaminophen 325 Mg Tablet) 975 mg PO Q6H [facility] Last Admin: 02/01/23 05:13 Dose: Not Given Documented By: SHASHANK Non-Admin Reason: Patient Refused Amlodipine Besylate (Amlodipine Besylate 5 Mg Tablet) 5 mg PO DAILY [facility]; Protocol Last Admin: 01/31/23 08:13 Dose: 5 mg Documented By: MACKENZIE Apixaban (Apixaban 2.5 Mg Tablet) 2.5 mg PO BID [facility] Last Admin: 01/31/23 20:29 Dose: 2.5 mg Documented By: SHASHANK Bicalutamide (Bicalutamide 50 Mg Tablet) 50 mg PO TID [facility] Last Admin: 01/31/23 20:31 Dose: 50 mg Documented By: SHASHANK Docusate Sodium (Docusate Sodium 100 Mg Capsule) 100 mg PO DAILY PRN PRN Reason: Constipation Last Admin: 01/05/23 08:05 Dose: 100 mg Documented By: HO.RIOSCEL Finasteride (Finasteride 5 Mg Tablet) 5 mg PO DAILY [facility] Last Admin: 01/31/23 08:12 Dose: 5 mg Documented By: MACKENZIE Gabapentin (Gabapentin 100 Mg Capsule) 100 mg PO BID [facility] Last Admin: 01/31/23 20:29 Dose: 100 mg Documented By: SHASHANK Glucose (Glucose Gel 15 Gm Gel..Gram.) 15 gm PO Q15M PRN; Protocol PRN Reason: per Hypoglycemia Standing Ord. Dextrose (D10) 250 mls @ 750 mls/hr IV Q15M PRN; Protocol PRN Reason: per Hypoglycemia Standing Ord. Insulin Human Lispro (Insulin Lispro 100 Unit/Ml 3 Ml Vial) 0 unit SUBCUT QIDACHS [facility]; Protocol Last Admin: 02/01/23 07:34 Dose: Not Given Documented By: SIMON Non-Admin Reason: No Insulin Coverage Metformin HCl (Metformin Hcl Er 500 Mg Tab.Er.24h) 2,000 mg PO DAILY [facility] Last Admin: 01/31/23 08:12 Dose: 2,000 mg Documented By: MACKENZIE Metoprolol Tartrate (Metoprolol Tartrate 25 Mg Tablet) 25 mg PO BID [facility]; Protocol Last Admin: 01/31/23 20:29 Dose: 25 mg Documented By: SHASHANK Olanzapine (Olanzapine 10 Mg Vial) 5 mg IM DAILY PRN PRN Reason: agitation Olanzapine (Olanzapine 2.5 Mg Tablet) 2.5 mg PO Q4H PRN PRN Reason: Delirium Last Admin: 01/27/23 18:25 Dose: 2.5 mg Documented By: MADALYN Olanzapine (Olanzapine 2.5 Mg Tablet) 2.5 mg PO DAILY [facility] Last Admin: 01/31/23 08:12 Dose: 2.5 mg Documented By: MACKENZIE Ondansetron HCl (Ondansetron Hcl 4 Mg/2 Ml Vial) 4 mg IVPUSH Q8H PRN PRN Reason: Nausea and Vomiting Ondansetron HCl (Ondansetron Hcl 4 Mg/2 Ml Vial) 4 mg IVPUSH ONCE PRN PRN Reason: Nausea and Vomiting Pharmacy Consult (Consult Rx Perform Med Rec) 1 each MISCELLANE ONCE PRN PRN Reason: Consult order Pravastatin Sodium (Pravastatin Sodium 40 Mg Tablet) 40 mg PO BEDTIME [facility] Last Admin: 01/31/23 20:29 Dose: 40 mg Documented By: EFRAÍNORALB Sodium Chloride (0.9 % Sodium Chloride Flush 3 Ml Syringe) 3 ml IVFLUSH QSHIFT [facility] Last Admin: 02/01/23 07:09 Dose: Not Given Documented By: SIMON Non-Admin Reason: No Access Tamsulosin HCl (Tamsulosin Hcl 0.4 Mg Capsule) 0.8 mg PO DAILY [facility] Last Admin: 01/31/23 08:12 Dose: 0.8 mg Documented By: MACKENZIE Labs 01/31/23 06:18 01/31/23 06:18 Labs: Laboratory Results - last 24 hr 01/31/23 01/31/23 01/31/23 11:07 16:08 19:49 POC Glucose 76 155 H 155 H 02/01/23 07:31 POC Glucose 129 H Assessment and Plan (1) Pain due to malignant neoplasm metastatic to bone: Status: Acute (2) Prostate cancer: Status: Acute (3) ANTONELLA (acute kidney injury): Status: Acute (4) Cognitive disorder: Status: Acute Plan 82-year-old male with a PMH significant for recently diagnosed?AFib on Eliquis, [id number] diabetes, and enlarged prostate who presented to the ED with?generalized weakness.? Patient recently presented to the emergency room 5 days prior on 12/26/2022 for evaluation of lower back pain.? Patient was found to have new onset AFib with RVR and a likely UTI.? CT scan of abdomen and pelvis found a marked heterogeneous enlargement the prostate gland with asymmetric nodular thickening of the left seminal vesicle concerning for primary malignancy.? 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 Continue Casodex as per Urology acute hypoxic respiratory failure suspect aspiration pneumonitis vs mucus plugging check cxr wean o2 as tolerated Paroxysmal afib with rvr acceptable rate control, continue metoprolol and Eliquis Metabolic encephalopathy ( acute delirium in backdrop of chronic dementia) likely natural progression of dementia patient lacks capacity to make most medical decisions and unlikely to be able to live safely independently(psychiatry) awaiting placement(insurance pending) ANTONELLA on CKD II resolved after [facility] placement DMI acceptable control on metformin and lispro correctional scale paroxysmal afib Eliquis, lopressor full code dvt prophylaxis - on eliquis Requires continued hospitalization: pending safe discharge to SNF Time Spent With Patient Time: Total time managing care of this patient today ____ minutes. Quality Stroke Does the patient have a stroke diagnosis?: No VTE Prior VTE?: No VTE Risk Level:: Medical - moderate - high VTE Device Contraindication: Treatment Not Indicated VTE Drug Contraindication: N/A - Med Ordered
[2023-02-01] MEDS: Metoprolol Tartrate 25 MG TABLET PO ×2 (08:42→20:28)
[2023-02-01] MEDS: Apixaban 2.5 MG TABLET PO ×2 (08:42→20:28)
[2023-02-01] MEDS: OLANZapine 2.5 MG TABLET PO (08:42)
[2023-02-01] MEDS: amLODIPine Besylate 5 MG TABLET PO (08:42)
[2023-02-01] MEDS: metFORMIN HCl ER 500 MG TAB.ER.24H 2000 MG PO (08:42)
[2023-02-01] MEDS: Tamsulosin HCL 0.4 MG CAPSULE 0.8 MG PO (08:42)
[2023-02-01] MEDS: Acetaminophen 325 MG TABLET 650 MG PO (08:49)
[2023-02-01 11:17] LABS: Glucose, Whole Blood 200 mg/dL (60-115)
[2023-02-01] MEDS: Insulin Lispro 100 UNIT/ML 3 ML VIAL SUBCUT ×3 (12:12→20:28)
[2023-02-01 14:59] VITALS: BP 142/70; PULSE 80; RESP 18; TEMP 36.4; O2SAT 95
[2023-02-01 16:07] LABS: Glucose, Whole Blood 153 mg/dL (60-115)
[2023-02-01 19:27] VITALS: BP 146/76; PULSE 106; RESP 18; TEMP 36.2; O2SAT 96
[2023-02-01 20:16] LABS: Glucose, Whole Blood 245 mg/dL (60-115)
[2023-02-01] MEDS: Pravastatin Sodium 40 MG TABLET PO (20:27)
[2023-02-02] MEDS: Acetaminophen 325 MG TABLET 975 MG PO ×4 (00:14→20:30)
[2023-02-02 03:40] VITALS: BP 130/63; PULSE 100; RESP 18; TEMP 37.7; O2SAT 94
[2023-02-02 07:20] VITALS: BP 118/59; PULSE 90; RESP 20; TEMP 36.3; O2SAT 95
[2023-02-02 07:55] LABS: Glucose, Whole Blood 230 mg/dL (60-115)
[2023-02-02] MEDS: Insulin Lispro 100 UNIT/ML 3 ML VIAL SUBCUT ×3 (08:21→21:03)
[2023-02-02] MEDS: metFORMIN HCl ER 500 MG TAB.ER.24H 2000 MG PO (08:22)
[2023-02-02] MEDS: OLANZapine 2.5 MG TABLET PO (08:22)
[2023-02-02] MEDS: Gabapentin 100 MG CAPSULE PO ×2 (08:22→20:30)
[2023-02-02] MEDS: Bicalutamide 50 MG TABLET PO ×3 (08:22→20:30)
[2023-02-02] MEDS: Finasteride 5 MG TABLET PO (08:22)
[2023-02-02] MEDS: amLODIPine Besylate 5 MG TABLET PO (08:22)
[2023-02-02] MEDS: Apixaban 2.5 MG TABLET PO ×2 (08:22→20:30)
[2023-02-02] MEDS: Metoprolol Tartrate 25 MG TABLET PO ×2 (08:22→20:30)
[2023-02-02] MEDS: Tamsulosin HCL 0.4 MG CAPSULE 0.8 MG PO (08:22)
[2023-02-02 11:27] LABS: Glucose, Whole Blood 102 mg/dL (60-115)
--- NOTE | 2023-02-02 14:32 | P.PNIM_ITS ---
Subjective Subjective Date of Service: 02/02/23 Interval History: Seen and evaluated this morning laying comfortable in his bed pain under fair control No other overnight events Review of Systems Review of Systems: Yes all other systems are reviewed and are negative Physical Exam Vital Signs: Vital Signs: Last Vital Signs Temp 97.3 F 02/02/23 07:20 Pulse 90 02/02/23 07:20 Resp 20 02/02/23 07:20 BP 118/59 L 02/02/23 07:20 Pulse Ox 95 02/02/23 07:20 O2 Del Method Room Air 02/02/23 07:20 O2 Flow Rate 2 01/19/23 22:40 Oxygen Flow Rate 3 01/10/23 18:20 BMI result Body Mass Index 24.2 Const: Other: General: AO X 2, no acute distress Resp:? CTA bilateral CVS: S1,S2,irregular irregular GI: +BS, NT, no distention Skin: No rash, Mclaughlin in place Neuro:? motor grossly intact Psych: appropriate affect Objective Data Active Medications Acetaminophen (Acetaminophen 325 Mg Tablet) 975 mg PO Q6H [facility] Last Admin: 02/02/23 14:16 Dose: 975 mg Documented By: EMILIO Amlodipine Besylate (Amlodipine Besylate 5 Mg Tablet) 5 mg PO DAILY [facility]; Protocol Last Admin: 02/02/23 08:22 Dose: 5 mg Documented By: SIMON Apixaban (Apixaban 2.5 Mg Tablet) 2.5 mg PO BID [facility] Last Admin: 02/02/23 08:22 Dose: 2.5 mg Documented By: SIMON Bicalutamide (Bicalutamide 50 Mg Tablet) 50 mg PO TID [facility] Last Admin: 02/02/23 14:15 Dose: 50 mg Documented By: EMILIO Docusate Sodium (Docusate Sodium 100 Mg Capsule) 100 mg PO DAILY PRN PRN Reason: Constipation Last Admin: 01/05/23 08:05 Dose: 100 mg Documented By: RIOMAGALY Finasteride (Finasteride 5 Mg Tablet) 5 mg PO DAILY [facility] Last Admin: 02/02/23 08:22 Dose: 5 mg Documented By: SIMON Gabapentin (Gabapentin 100 Mg Capsule) 100 mg PO BID [facility] Last Admin: 02/02/23 08:22 Dose: 100 mg Documented By: SIMON Glucose (Glucose Gel 15 Gm Gel..Gram.) 15 gm PO Q15M PRN; Protocol PRN Reason: per Hypoglycemia Standing Ord. Dextrose (D10) 250 mls @ 750 mls/hr IV Q15M PRN; Protocol PRN Reason: per Hypoglycemia Standing Ord. Insulin Human Lispro (Insulin Lispro 100 Unit/Ml 3 Ml Vial) 0 unit SUBCUT QIDACHS [facility]; Protocol Last Admin: 02/02/23 11:36 Dose: Not Given Documented By: EMILIO Non-Admin Reason: No Insulin Coverage Metformin HCl (Metformin Hcl Er 500 Mg Tab.Er.24h) 2,000 mg PO DAILY [facility] Last Admin: 02/02/23 08:22 Dose: 2,000 mg Documented By: SIMON Metoprolol Tartrate (Metoprolol Tartrate 25 Mg Tablet) 25 mg PO BID [facility]; Protocol Last Admin: 02/02/23 08:22 Dose: 25 mg Documented By: SIMON Olanzapine (Olanzapine 10 Mg Vial) 5 mg IM DAILY PRN PRN Reason: agitation Olanzapine (Olanzapine 2.5 Mg Tablet) 2.5 mg PO Q4H PRN PRN Reason: Delirium Last Admin: 01/27/23 18:25 Dose: 2.5 mg Documented By: MORENITAEMA Olanzapine (Olanzapine 2.5 Mg Tablet) 2.5 mg PO DAILY [facility] Last Admin: 02/02/23 08:22 Dose: 2.5 mg Documented By: SIMON Ondansetron HCl (Ondansetron Hcl 4 Mg/2 Ml Vial) 4 mg IVPUSH Q8H PRN PRN Reason: Nausea and Vomiting Ondansetron HCl (Ondansetron Hcl 4 Mg/2 Ml Vial) 4 mg IVPUSH ONCE PRN PRN Reason: Nausea and Vomiting Pharmacy Consult (Consult Rx Perform Med Rec) 1 each MISCELLANE ONCE PRN PRN Reason: Consult order Pravastatin Sodium (Pravastatin Sodium 40 Mg Tablet) 40 mg PO BEDTIME [facility] Last Admin: 02/01/23 20:27 Dose: 40 mg Documented By: EFRAÍNORALPeña Sodium Chloride (0.9 % Sodium Chloride Flush 3 Ml Syringe) 3 ml IVFLUSH QSHIFT [facility] Last Admin: 02/02/23 14:17 Dose: Not Given Documented By: EMILIO Non-Admin Reason: No Access Tamsulosin HCl (Tamsulosin Hcl 0.4 Mg Capsule) 0.8 mg PO DAILY [facility] Last Admin: 02/02/23 08:22 Dose: 0.8 mg Documented By: SIMON Labs 01/31/23 06:18 01/31/23 06:18 Labs: Laboratory Results - last 24 hr 02/01/23 02/01/23 02/02/23 15:57 20:08 07:26 POC Glucose 153 H 245 H 230 H 02/02/23 11:23 POC Glucose 102 Assessment and Plan (1) Metabolic encephalopathy: Status: Acute (2) Metastasis to bone: Status: Acute Plan 82-year-old male with a PMH significant for recently diagnosed?AFib on Eliquis, duh-jcjxung-zfjqgolcw diabetes, and enlarged prostate who presented to the ED with?generalized weakness.? Patient recently presented to the emergency room 5 days prior on 12/26/2022 for evaluation of lower back pain.? Patient was found to have new onset AFib with RVR and a likely UTI.? CT scan of abdomen and pelvis found a marked heterogeneous enlargement the prostate gland with asymmetric nodular thickening of the left seminal vesicle concerning for primary malignancy.? 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 Continue Casodex as per Urology acute hypoxic respiratory failure 2/2 LLL atelactasis lung toileting wean o2 as tolerated Paroxysmal afib with rvr rate control, continue metoprolol and Eliquis Metabolic encephalopathy ( acute delirium in backdrop of chronic dementia) likely natural progression of dementia patient lacks capacity to make most medical decisions and unlikely to be able to live safely independently(psychiatry) awaiting placement(insurance pending) ANTONELLA on CKD II resolved after [facility] placement DMI acceptable control on metformin and lispro correctional scale paroxysmal afib Eliquis, lopressor full code dvt prophylaxis - on eliquis Requires continued hospitalization: pending safe discharge to SNF Time Spent With Patient Time: Total time managing care of this patient today ____ minutes. Quality Stroke Does the patient have a stroke diagnosis?: No VTE Prior VTE?: No VTE Risk Level:: Medical - moderate - high VTE Device Contraindication: Treatment Not Indicated VTE Drug Contraindication: N/A - Med Ordered
--- NOTE | 2023-02-02 15:11 | MHC.CM.PN ---
per rounds pt ready for dc all paperwork to awaiting approval
[2023-02-02 15:47] LABS: Glucose, Whole Blood 153 mg/dL (60-115)
[2023-02-02 16:00] VITALS: BP 119/62; PULSE 90; RESP 20; TEMP 36.7; O2SAT 96
[2023-02-02 20:00] VITALS: BP 120/62; PULSE 70; RESP 17; TEMP 36.6; O2SAT 95
[2023-02-02] MEDS: Pravastatin Sodium 40 MG TABLET PO (20:30)
[2023-02-02 20:43] LABS: Glucose, Whole Blood 207 mg/dL (60-115)
[2023-02-03 03:13] VITALS: BP 128/71; PULSE 99; RESP 17; TEMP 36.1; O2SAT 96
[2023-02-03] MEDS: Acetaminophen 325 MG TABLET 975 MG PO ×4 (05:22→23:33)
[2023-02-03 07:20] VITALS: BP 117/59; PULSE 93; RESP 20; TEMP 36.9; O2SAT 97
[2023-02-03 07:42] LABS: Glucose, Whole Blood 267 mg/dL (60-115)
[2023-02-03] MEDS: Insulin Lispro 100 UNIT/ML 3 ML VIAL SUBCUT ×2 (08:18→11:56)
[2023-02-03] MEDS: metFORMIN HCl ER 500 MG TAB.ER.24H 2000 MG PO (08:31)
[2023-02-03] MEDS: Tamsulosin HCL 0.4 MG CAPSULE 0.8 MG PO (08:31)
[2023-02-03] MEDS: Finasteride 5 MG TABLET PO (08:32)
[2023-02-03] MEDS: Apixaban 2.5 MG TABLET PO ×2 (08:32→20:36)
[2023-02-03] MEDS: Metoprolol Tartrate 25 MG TABLET PO ×2 (08:32→20:36)
[2023-02-03] MEDS: OLANZapine 2.5 MG TABLET PO (08:32)
[2023-02-03] MEDS: Gabapentin 100 MG CAPSULE PO ×2 (08:32→20:36)
[2023-02-03] MEDS: Bicalutamide 50 MG TABLET PO ×3 (08:32→20:36)
[2023-02-03] MEDS: amLODIPine Besylate 5 MG TABLET PO (08:32)
--- NOTE | 2023-02-03 11:19 | P.PNIM_ITS ---
Subjective Subjective Date of Service: 02/03/23 Interval History: Seen and evaluated this morning laying comfortable in his bed pain under fair control No other overnight events Review of Systems Review of Systems: Yes all other systems are reviewed and are negative Physical Exam Vital Signs: Vital Signs: Last Vital Signs Temp 98.5 F 02/03/23 07:20 Pulse 93 02/03/23 07:20 Resp 20 02/03/23 07:20 BP 117/59 L 02/03/23 07:20 Pulse Ox 97 02/03/23 07:20 O2 Del Method Room Air 02/03/23 07:20 O2 Flow Rate 2 01/19/23 22:40 Oxygen Flow Rate 3 01/10/23 18:20 BMI result Body Mass Index 24.2 Const: Other: General: AO X 2, no acute distress Resp:? CTA bilateral CVS: S1,S2,irregular irregular GI: +BS, NT, no distention Skin: No rash, Mclaughlin in place Neuro:? motor grossly intact Psych: appropriate affect Objective Data Active Medications Acetaminophen (Acetaminophen 325 Mg Tablet) 975 mg PO Q6H [facility] Last Admin: 02/03/23 05:22 Dose: 975 mg Documented By: CLARA Amlodipine Besylate (Amlodipine Besylate 5 Mg Tablet) 5 mg PO DAILY [facility]; Protocol Last Admin: 02/03/23 08:32 Dose: 5 mg Documented By: SIMON Apixaban (Apixaban 2.5 Mg Tablet) 2.5 mg PO BID [facility] Last Admin: 02/03/23 08:32 Dose: 2.5 mg Documented By: SIMON Bicalutamide (Bicalutamide 50 Mg Tablet) 50 mg PO TID [facility] Last Admin: 02/03/23 08:32 Dose: 50 mg Documented By: SIMON Docusate Sodium (Docusate Sodium 100 Mg Capsule) 100 mg PO DAILY PRN PRN Reason: Constipation Last Admin: 01/05/23 08:05 Dose: 100 mg Documented By: MIKE Finasteride (Finasteride 5 Mg Tablet) 5 mg PO DAILY [facility] Last Admin: 02/03/23 08:32 Dose: 5 mg Documented By: SIMON Gabapentin (Gabapentin 100 Mg Capsule) 100 mg PO BID [facility] Last Admin: 02/03/23 08:32 Dose: 100 mg Documented By: SIMON Glucose (Glucose Gel 15 Gm Gel..Gram.) 15 gm PO Q15M PRN; Protocol PRN Reason: per Hypoglycemia Standing Ord. Dextrose (D10) 250 mls @ 750 mls/hr IV Q15M PRN; Protocol PRN Reason: per Hypoglycemia Standing Ord. Insulin Human Lispro (Insulin Lispro 100 Unit/Ml 3 Ml Vial) 0 unit SUBCUT QIDACHS [facility]; Protocol Last Admin: 02/03/23 08:18 Dose: 6 unit Documented By: SIMON Metformin HCl (Metformin Hcl Er 500 Mg Tab.Er.24h) 2,000 mg PO DAILY [facility] Last Admin: 02/03/23 08:31 Dose: 2,000 mg Documented By: SIMON Metoprolol Tartrate (Metoprolol Tartrate 25 Mg Tablet) 25 mg PO BID [facility]; Protocol Last Admin: 02/03/23 08:32 Dose: 25 mg Documented By: SIMON Olanzapine (Olanzapine 10 Mg Vial) 5 mg IM DAILY PRN PRN Reason: agitation Olanzapine (Olanzapine 2.5 Mg Tablet) 2.5 mg PO Q4H PRN PRN Reason: Delirium Last Admin: 01/27/23 18:25 Dose: 2.5 mg Documented By: COTEMA Olanzapine (Olanzapine 2.5 Mg Tablet) 2.5 mg PO DAILY [facility] Last Admin: 02/03/23 08:32 Dose: 2.5 mg Documented By: SIMON Ondansetron HCl (Ondansetron Hcl 4 Mg/2 Ml Vial) 4 mg IVPUSH Q8H PRN PRN Reason: Nausea and Vomiting Ondansetron HCl (Ondansetron Hcl 4 Mg/2 Ml Vial) 4 mg IVPUSH ONCE PRN PRN Reason: Nausea and Vomiting Pharmacy Consult (Consult Rx Perform Med Rec) 1 each MISCELLANE ONCE PRN PRN Reason: Consult order Pravastatin Sodium (Pravastatin Sodium 40 Mg Tablet) 40 mg PO BEDTIME [facility] Last Admin: 02/02/23 20:30 Dose: 40 mg Documented By: TERAQC Sodium Chloride (0.9 % Sodium Chloride Flush 3 Ml Syringe) 3 ml IVFLUSH QSHIFT [facility] Last Admin: 02/03/23 08:20 Dose: Not Given Documented By: SIMON Non-Admin Reason: No Access Tamsulosin HCl (Tamsulosin Hcl 0.4 Mg Capsule) 0.8 mg PO DAILY [facility] Last Admin: 02/03/23 08:31 Dose: 0.8 mg Documented By: SIMON Labs 01/31/23 06:18 01/31/23 06:18 Labs: Laboratory Results - last 24 hr 02/02/23 02/02/23 02/02/23 11:23 15:34 20:40 POC Glucose 102 153 H 207 H 02/03/23 07:22 POC Glucose 267 H Assessment and Plan (1) Prostate cancer: Status: Acute (2) Pain due to malignant neoplasm metastatic to bone: Status: Acute Plan 82-year-old male with a PMH significant for recently diagnosed?AFib on Eliquis, ajd-ukmbdsn-oqhphiufo diabetes, and enlarged prostate who presented to the ED with?generalized weakness.? Patient recently presented to the emergency room 5 days prior on 12/26/2022 for evaluation of lower back pain.? Patient was found to have new onset AFib with RVR and a likely UTI.? CT scan of abdomen and pelvis found a marked heterogeneous enlargement the prostate gland with asymmetric nodular thickening of the left seminal vesicle concerning for primary malignancy.? 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 Continue Casodex as per Urology acute hypoxic respiratory failure 2/2 LLL atelactasis lung toileting wean o2 as tolerated Paroxysmal afib with rvr rate control, continue metoprolol and Eliquis Metabolic encephalopathy ( acute delirium in backdrop of chronic dementia) likely natural progression of dementia patient lacks capacity to make most medical decisions and unlikely to be able to live safely independently(psychiatry) awaiting placement(insurance pending) ANTONELLA on CKD II resolved after [facility] placement DMI acceptable control on metformin and lispro correctional scale paroxysmal afib Eliquis, lopressor full code dvt prophylaxis - on eliquis Requires continued hospitalization: pending safe discharge to SNF Time Spent With Patient Time: Total time managing care of this patient today ____ minutes. Quality Stroke Does the patient have a stroke diagnosis?: No VTE Prior VTE?: No VTE Risk Level:: Medical - moderate - high VTE Device Contraindication: Treatment Not Indicated VTE Drug Contraindication: N/A - Med Ordered
[2023-02-03 11:44] LABS: Glucose, Whole Blood 231 mg/dL (60-115)
[2023-02-03 16:03] LABS: Glucose, Whole Blood 125 mg/dL (60-115)
[2023-02-03 16:23] VITALS: BP 120/60; PULSE 90; RESP 20; TEMP 36.2; O2SAT 98
[2023-02-03 19:13] VITALS: BP 138/66; PULSE 75; RESP 17; TEMP 36.3; O2SAT 97
[2023-02-03] MEDS: Pravastatin Sodium 40 MG TABLET PO (20:36)
[2023-02-03 20:42] LABS: Glucose, Whole Blood 148 mg/dL (60-115)
[2023-02-04 03:54] VITALS: BP 124/65; PULSE 75; RESP 17; TEMP 36.6; O2SAT 95
[2023-02-04] MEDS: Acetaminophen 325 MG TABLET 975 MG PO ×4 (05:21→23:37)
[2023-02-04 08:00] VITALS: BP 156/81; PULSE 82; RESP 18; TEMP 36.5; O2SAT 96
[2023-02-04 08:21] LABS: Glucose, Whole Blood 164 mg/dL (60-115)
[2023-02-04] MEDS: OLANZapine 2.5 MG TABLET PO ×2 (08:39→20:54)
[2023-02-04] MEDS: Insulin Lispro 100 UNIT/ML 3 ML VIAL SUBCUT ×3 (08:39→20:53)
[2023-02-04] MEDS: Apixaban 2.5 MG TABLET PO ×2 (08:40→20:53)
[2023-02-04] MEDS: Metoprolol Tartrate 25 MG TABLET PO ×2 (08:40→20:54)
[2023-02-04] MEDS: Bicalutamide 50 MG TABLET PO ×3 (08:40→20:54)
[2023-02-04] MEDS: Finasteride 5 MG TABLET PO (08:40)
[2023-02-04] MEDS: amLODIPine Besylate 5 MG TABLET PO (08:40)
[2023-02-04] MEDS: Gabapentin 100 MG CAPSULE PO ×2 (08:40→20:53)
[2023-02-04] MEDS: Tamsulosin HCL 0.4 MG CAPSULE 0.8 MG PO (08:40)
[2023-02-04] MEDS: metFORMIN HCl ER 500 MG TAB.ER.24H 2000 MG PO (08:40)
[2023-02-04 11:07] LABS: Glucose, Whole Blood 141 mg/dL (60-115)
--- NOTE | 2023-02-04 13:08 | MHC.CM.PN ---
PT AWAITING [place] FOR [facility] SNFS ARE FOLLOWING
--- NOTE | 2023-02-04 14:07 | P.PNIM_ITS ---
Subjective Subjective Date of Service: 02/04/23 Interval History: Seen and evaluated this morning laying comfortable in his bed pain under fair control No other overnight events Physical Exam Vital Signs: Vital Signs: Last Vital Signs Temp 97.7 F 02/04/23 08:00 Pulse 82 02/04/23 08:00 Resp 18 02/04/23 08:00 BP 156/81 H 02/04/23 08:00 Pulse Ox 96 02/04/23 08:00 O2 Del Method Room Air 02/04/23 08:00 O2 Flow Rate 2 01/19/23 22:40 Oxygen Flow Rate 3 01/10/23 18:20 BMI result Body Mass Index 24.2 Const: Other: General: AO X 2, no acute distress Resp:? CTA bilateral CVS: S1,S2,irregular irregular GI: +BS, NT, no distention Skin: No rash, Mclaughlin in place Neuro:? motor grossly intact Psych: appropriate affect Objective Data Active Medications Acetaminophen (Acetaminophen 325 Mg Tablet) 975 mg PO Q6H [facility] Last Admin: 02/04/23 11:13 Dose: 975 mg Documented By: REZA Amlodipine Besylate (Amlodipine Besylate 5 Mg Tablet) 5 mg PO DAILY [facility], [facility]; Protocol Last Admin: 02/04/23 08:40 Dose: 5 mg Documented By: REZA Apixaban (Apixaban 2.5 Mg Tablet) 2.5 mg PO BID [facility] Last Admin: 02/04/23 08:40 Dose: 2.5 mg Documented By: REZA Bicalutamide (Bicalutamide 50 Mg Tablet) 50 mg PO TID [facility] Last Admin: 02/04/23 08:40 Dose: 50 mg Documented By: REZA Docusate Sodium (Docusate Sodium 100 Mg Capsule) 100 mg PO DAILY PRN PRN Reason: Constipation Last Admin: 01/05/23 08:05 Dose: 100 mg Documented By: RIOSCJOSESITO Finasteride (Finasteride 5 Mg Tablet) 5 mg PO DAILY [facility] Last Admin: 02/04/23 08:40 Dose: 5 mg Documented By: REZA Gabapentin (Gabapentin 100 Mg Capsule) 100 mg PO BID [facility] Last Admin: 02/04/23 08:40 Dose: 100 mg Documented By: REZA Glucose (Glucose Gel 15 Gm Gel..Gram.) 15 gm PO Q15M PRN; Protocol PRN Reason: per Hypoglycemia Standing Ord. Dextrose (D10) 250 mls @ 750 mls/hr IV Q15M PRN; Protocol PRN Reason: per Hypoglycemia Standing Ord. Insulin Human Lispro (Insulin Lispro 100 Unit/Ml 3 Ml Vial) 0 unit SUBCUT QIDACHS [facility], [facility]; Protocol Last Admin: 02/04/23 11:10 Dose: Not Given Documented By: REZA Non-Admin Reason: No Insulin Coverage Metformin HCl (Metformin Hcl Er 500 Mg Tab.Er.24h) 2,000 mg PO DAILY [facility] Last Admin: 02/04/23 08:40 Dose: 2,000 mg Documented By: REZA Metoprolol Tartrate (Metoprolol Tartrate 25 Mg Tablet) 25 mg PO BID [facility]; Protocol Last Admin: 02/04/23 08:40 Dose: 25 mg Documented By: REZA Olanzapine (Olanzapine 10 Mg Vial) 5 mg IM DAILY PRN PRN Reason: agitation Olanzapine (Olanzapine 2.5 Mg Tablet) 2.5 mg PO Q4H PRN PRN Reason: Delirium Last Admin: 01/27/23 18:25 Dose: 2.5 mg Documented By: MORENITAEMA Olanzapine (Olanzapine 2.5 Mg Tablet) 2.5 mg PO DAILY [facility] Last Admin: 02/04/23 08:39 Dose: 2.5 mg Documented By: REZA Ondansetron HCl (Ondansetron Hcl 4 Mg/2 Ml Vial) 4 mg IVPUSH Q8H PRN PRN Reason: Nausea and Vomiting Ondansetron HCl (Ondansetron Hcl 4 Mg/2 Ml Vial) 4 mg IVPUSH ONCE PRN PRN Reason: Nausea and Vomiting Pharmacy Consult (Consult Rx Perform Med Rec) 1 each MISCELLANE ONCE PRN PRN Reason: Consult order Pravastatin Sodium (Pravastatin Sodium 40 Mg Tablet) 40 mg PO BEDTIME [facility] Last Admin: 02/03/23 20:36 Dose: 40 mg Documented By: CLARA Sodium Chloride (0.9 % Sodium Chloride Flush 3 Ml Syringe) 3 ml IVFLUSH QSHIFT [facility] Last Admin: 02/04/23 07:00 Dose: Not Given Documented By: REZA Non-Admin Reason: No Access Tamsulosin HCl (Tamsulosin Hcl 0.4 Mg Capsule) 0.8 mg PO DAILY [facility] Last Admin: 02/04/23 08:40 Dose: 0.8 mg Documented By: REZA Labs 01/31/23 06:18 01/31/23 06:18 Labs: Laboratory Results - last 24 hr 02/03/23 02/03/23 02/04/23 15:53 20:35 08:05 POC Glucose 125 H 148 H 164 H 02/04/23 10:53 POC Glucose 141 H Assessment and Plan (1) Pain due to malignant neoplasm metastatic to bone: Status: Acute Plan 82-year-old male with a PMH significant for recently diagnosed?AFib on Eliquis, [id number] diabetes, and enlarged prostate who presented to the ED with?generalized weakness.? Patient recently presented to the emergency room 5 days prior on 12/26/2022 for evaluation of lower back pain.? Patient was found to have new onset AFib with RVR and a likely UTI.? CT scan of abdomen and pelvis found a marked heterogeneous enlargement the prostate gland with asymmetric nodular thickening of the left seminal vesicle concerning for primary malignancy.? 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 Continue Casodex as per Urology acute hypoxic respiratory failure 2/2 LLL atelactasis lung toileting wean o2 as tolerated Paroxysmal afib with rvr rate control, continue metoprolol and Eliquis Metabolic encephalopathy ( acute delirium in backdrop of chronic dementia) likely natural progression of dementia patient lacks capacity to make most medical decisions and unlikely to be able to live safely independently(psychiatry) awaiting placement(insurance pending) ANTONELLA on CKD II resolved after Mclaughlin placement DMI acceptable control on metformin and lispro correctional scale paroxysmal afib Eliquis, lopressor full code dvt prophylaxis - on eliquis Requires continued hospitalization: pending safe discharge to SNF Time Spent With Patient Time: Total time managing care of this patient today ____ minutes. Quality Stroke Does the patient have a stroke diagnosis?: No VTE Prior VTE?: No VTE Risk Level:: Medical - moderate - high VTE Device Contraindication: Treatment Not Indicated VTE Drug Contraindication: N/A - Med Ordered
[2023-02-04 15:24] VITALS: BP 119/56; PULSE 70; RESP 18; TEMP 36.7; O2SAT 97
[2023-02-04 16:19] LABS: Glucose, Whole Blood 169 mg/dL (60-115)
[2023-02-04 19:46] VITALS: BP 138/64; PULSE 89; RESP 18; TEMP 36.8; O2SAT 98
[2023-02-04 20:50] LABS: Glucose, Whole Blood 218 mg/dL (60-115)
[2023-02-04] MEDS: Pravastatin Sodium 40 MG TABLET PO (20:53)
[2023-02-05 02:29] VITALS: BP 143/71; PULSE 94; RESP 16; TEMP 36.4; O2SAT 97
[2023-02-05] MEDS: Acetaminophen 325 MG TABLET 975 MG PO ×3 (05:46→16:59)
[2023-02-05 07:13] VITALS: BP 114/56; PULSE 82; RESP 18; TEMP 36.6; O2SAT 96
[2023-02-05 07:33] LABS: Glucose, Whole Blood 156 mg/dL (60-115)
[2023-02-05] MEDS: amLODIPine Besylate 5 MG TABLET PO (07:59)
[2023-02-05] MEDS: Metoprolol Tartrate 25 MG TABLET PO ×2 (07:59→21:27)
[2023-02-05] MEDS: Apixaban 2.5 MG TABLET PO ×2 (07:59→21:27)
[2023-02-05] MEDS: Tamsulosin HCL 0.4 MG CAPSULE 0.8 MG PO (07:59)
[2023-02-05] MEDS: Insulin Lispro 100 UNIT/ML 3 ML VIAL SUBCUT ×3 (07:59→21:27)
[2023-02-05] MEDS: metFORMIN HCl ER 500 MG TAB.ER.24H 2000 MG PO (07:59)
[2023-02-05] MEDS: Gabapentin 100 MG CAPSULE PO ×2 (07:59→21:27)
[2023-02-05] MEDS: OLANZapine 2.5 MG TABLET PO (08:00)
[2023-02-05] MEDS: Finasteride 5 MG TABLET PO (08:00)
[2023-02-05] MEDS: Bicalutamide 50 MG TABLET PO ×3 (08:00→21:15)
--- NOTE | 2023-02-05 09:55 | P.PNIM_ITS ---
Subjective Subjective Date of Service: 02/06/23 Interval History: Seen and evaluated this morning laying comfortable in his bed pain under fair control No other overnight events Review of Systems Review of Systems: Yes all other systems are reviewed and are negative Physical Exam Vital Signs: Vital Signs: Last Vital Signs Temp 97.8 F 02/05/23 07:13 Pulse 82 02/05/23 07:13 Resp 18 02/05/23 07:13 BP 114/56 L 02/05/23 07:13 Pulse Ox 96 02/05/23 07:13 O2 Del Method Room Air 02/05/23 07:13 O2 Flow Rate 2 01/19/23 22:40 Oxygen Flow Rate 3 01/10/23 18:20 BMI result Body Mass Index 24.2 Const: Other: General: AO X 2, no acute distress Resp:? CTA bilateral CVS: S1,S2,irregular irregular GI: +BS, NT, no distention Skin: No rash, Mclaughlin in place Neuro:? motor grossly intact Psych: appropriate affect Objective Data Active Medications Acetaminophen (Acetaminophen 325 Mg Tablet) 975 mg PO Q6H [facility] Last Admin: 02/05/23 05:46 Dose: 975 mg Documented By: ALISSON Amlodipine Besylate (Amlodipine Besylate 5 Mg Tablet) 5 mg PO DAILY [facility]; Protocol Last Admin: 02/05/23 07:59 Dose: 5 mg Documented By: REZA Apixaban (Apixaban 2.5 Mg Tablet) 2.5 mg PO BID [facility] Last Admin: 02/05/23 07:59 Dose: 2.5 mg Documented By: REZA Bicalutamide (Bicalutamide 50 Mg Tablet) 50 mg PO TID [facility] Last Admin: 02/05/23 08:00 Dose: 50 mg Documented By: REZA Docusate Sodium (Docusate Sodium 100 Mg Capsule) 100 mg PO DAILY PRN PRN Reason: Constipation Last Admin: 01/05/23 08:05 Dose: 100 mg Documented By: RIOMAGALY Finasteride (Finasteride 5 Mg Tablet) 5 mg PO DAILY [facility] Last Admin: 02/05/23 08:00 Dose: 5 mg Documented By: REZA Gabapentin (Gabapentin 100 Mg Capsule) 100 mg PO BID [facility] Last Admin: 02/05/23 07:59 Dose: 100 mg Documented By: REZA Glucose (Glucose Gel 15 Gm Gel..Gram.) 15 gm PO Q15M PRN; Protocol PRN Reason: per Hypoglycemia Standing Ord. Dextrose (D10) 250 mls @ 750 mls/hr IV Q15M PRN; Protocol PRN Reason: per Hypoglycemia Standing Ord. Insulin Human Lispro (Insulin Lispro 100 Unit/Ml 3 Ml Vial) 0 unit SUBCUT QIDACHS [facility]; Protocol Last Admin: 02/05/23 07:59 Dose: 2 unit Documented By: REZA Metformin HCl (Metformin Hcl Er 500 Mg Tab.Er.24h) 2,000 mg PO DAILY [facility] Last Admin: 02/05/23 07:59 Dose: 2,000 mg Documented By: REZA Metoprolol Tartrate (Metoprolol Tartrate 25 Mg Tablet) 25 mg PO BID [facility]; Protocol Last Admin: 02/05/23 07:59 Dose: 25 mg Documented By: REZA Olanzapine (Olanzapine 10 Mg Vial) 5 mg IM DAILY PRN PRN Reason: agitation Olanzapine (Olanzapine 2.5 Mg Tablet) 2.5 mg PO Q4H PRN PRN Reason: Delirium Last Admin: 02/04/23 20:54 Dose: 2.5 mg Documented By: BENIGNO Olanzapine (Olanzapine 2.5 Mg Tablet) 2.5 mg PO DAILY [facility] Last Admin: 02/05/23 08:00 Dose: 2.5 mg Documented By: REZA Ondansetron HCl (Ondansetron Hcl 4 Mg/2 Ml Vial) 4 mg IVPUSH Q8H PRN PRN Reason: Nausea and Vomiting Ondansetron HCl (Ondansetron Hcl 4 Mg/2 Ml Vial) 4 mg IVPUSH ONCE PRN PRN Reason: Nausea and Vomiting Pharmacy Consult (Consult Rx Perform Med Rec) 1 each MISCELLANE ONCE PRN PRN Reason: Consult order Pravastatin Sodium (Pravastatin Sodium 40 Mg Tablet) 40 mg PO BEDTIME [facility] Last Admin: 02/04/23 20:53 Dose: 40 mg Documented By: BENIGNO Sodium Chloride (0.9 % Sodium Chloride Flush 3 Ml Syringe) 3 ml IVFLUSH QSHIFT [facility] Last Admin: 02/05/23 08:01 Dose: Not Given Documented By: REZA Non-Admin Reason: No Access Tamsulosin HCl (Tamsulosin Hcl 0.4 Mg Capsule) 0.8 mg PO DAILY [facility] Last Admin: 02/05/23 07:59 Dose: 0.8 mg Documented By: REZA Labs 01/31/23 06:18 01/31/23 06:18 Labs: Laboratory Results - last 24 hr 02/04/23 02/04/23 02/04/23 10:53 16:11 20:42 POC Glucose 141 H 169 H 218 H 02/05/23 07:16 POC Glucose 156 H Assessment and Plan (1) Pain due to malignant neoplasm metastatic to bone: Status: Acute Plan 82-year-old male with a PMH significant for recently diagnosed?AFib on Eliquis, bro-brxihra-erwjyjymg diabetes, and enlarged prostate who presented to the ED with?generalized weakness.? Patient recently presented to the emergency room 5 days prior on 12/26/2022 for evaluation of lower back pain.? Patient was found to have new onset AFib with RVR and a likely UTI.? CT scan of abdomen and pelvis found a marked heterogeneous enlargement the prostate gland with asymmetric nodular thickening of the left seminal vesicle concerning for primary malignancy.? 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 Continue Casodex as per Urology acute hypoxic respiratory failure 2/2 LLL atelactasis lung toileting wean o2 as tolerated Paroxysmal afib with rvr rate control, continue metoprolol and Eliquis Metabolic encephalopathy ( acute delirium in backdrop of chronic dementia) likely natural progression of dementia patient lacks capacity to make most medical decisions and unlikely to be able to live safely independently(psychiatry) awaiting placement(insurance pending) ANTONELLA on CKD II resolved after Mclaughlin placement DMI acceptable control on metformin and lispro correctional scale paroxysmal afib Eliquis, lopressor full code dvt prophylaxis - on eliquis Requires continued hospitalization: pending safe discharge to SNF Time Spent With Patient Time: Total time managing care of this patient today ____ minutes. Quality Stroke Does the patient have a stroke diagnosis?: No VTE Prior VTE?: No VTE Risk Level:: Medical - moderate - high VTE Device Contraindication: Treatment Not Indicated VTE Drug Contraindication: N/A - Med Ordered
[2023-02-05 11:10] LABS: Glucose, Whole Blood 180 mg/dL (60-115)
[2023-02-05 15:09] VITALS: BP 119/62; PULSE 81; RESP 18; TEMP 36.8; O2SAT 97
[2023-02-05 16:18] LABS: Glucose, Whole Blood 137 mg/dL (60-115)
[2023-02-05 20:00] VITALS: BP 132/69; PULSE 90; RESP 18; TEMP 36.2; O2SAT 96
[2023-02-05 20:52] LABS: Glucose, Whole Blood 215 mg/dL (60-115)
[2023-02-05] MEDS: Pravastatin Sodium 40 MG TABLET PO (21:27)
[2023-02-06 03:03] VITALS: BP 135/68; PULSE 99; RESP 16; TEMP 36.3; O2SAT 95
[2023-02-06] MEDS: Acetaminophen 325 MG TABLET 975 MG PO ×3 (03:17→16:36)
[2023-02-06] MEDS: OLANZapine 2.5 MG TABLET PO ×2 (03:19→07:59)
[2023-02-06 04:24] VITALS: RESP 18
[2023-02-06 07:29] LABS: Glucose, Whole Blood 144 mg/dL (60-115)
[2023-02-06 07:38] VITALS: BP 122/76; PULSE 89; RESP 18; TEMP 36.1; O2SAT 96
[2023-02-06] MEDS: metFORMIN HCl ER 500 MG TAB.ER.24H 2000 MG PO (07:57)
[2023-02-06] MEDS: Tamsulosin HCL 0.4 MG CAPSULE 0.8 MG PO (07:58)
[2023-02-06] MEDS: Finasteride 5 MG TABLET PO (07:59)
[2023-02-06] MEDS: Gabapentin 100 MG CAPSULE PO ×2 (07:59→20:38)
[2023-02-06] MEDS: Metoprolol Tartrate 25 MG TABLET PO ×2 (07:59→20:38)
[2023-02-06] MEDS: Bicalutamide 50 MG TABLET PO ×3 (07:59→20:39)
[2023-02-06] MEDS: amLODIPine Besylate 5 MG TABLET PO (07:59)
[2023-02-06] MEDS: Apixaban 2.5 MG TABLET PO ×2 (07:59→20:38)
--- NOTE | 2023-02-06 08:55 | P.PNIM_ITS ---
Subjective Subjective Date of Service: 02/06/23 Interval History: Seen and evaluated this morning sitting in his bed, reporting pain as pain med fell off Review of Systems Review of Systems: Yes all other systems are reviewed and are negative Physical Exam Vital Signs: Vital Signs: Last Vital Signs Temp 97.0 F 02/06/23 07:38 Pulse 89 02/06/23 07:38 Resp 18 02/06/23 07:38 BP 122/76 02/06/23 07:38 Pulse Ox 96 02/06/23 07:38 O2 Del Method Room Air 02/06/23 07:38 O2 Flow Rate 2 01/19/23 22:40 Oxygen Flow Rate 3 01/10/23 18:20 BMI result Body Mass Index 24.2 Const: Other: General: AO X 2, no acute distress GI: +BS, NT, no distention Skin: No rash, Mclaughlin in place Neuro:? motor grossly intact Psych: appropriate affect Objective Data Active Medications Acetaminophen (Acetaminophen 325 Mg Tablet) 975 mg PO Q6H [facility] Last Admin: 02/06/23 05:48 Dose: Not Given Documented By: SHASHANK Non-Admin Reason: gave an unscheduled dose Amlodipine Besylate (Amlodipine Besylate 5 Mg Tablet) 5 mg PO DAILY [facility]; Protocol Last Admin: 02/06/23 07:59 Dose: 5 mg Documented By: REZA Apixaban (Apixaban 2.5 Mg Tablet) 2.5 mg PO BID [facility] Last Admin: 02/06/23 07:59 Dose: 2.5 mg Documented By: REZA Bicalutamide (Bicalutamide 50 Mg Tablet) 50 mg PO TID [facility] Last Admin: 02/06/23 07:59 Dose: 50 mg Documented By: REZA Docusate Sodium (Docusate Sodium 100 Mg Capsule) 100 mg PO DAILY PRN PRN Reason: Constipation Last Admin: 01/05/23 08:05 Dose: 100 mg Documented By: RIOSCEL Finasteride (Finasteride 5 Mg Tablet) 5 mg PO DAILY [facility] Last Admin: 02/06/23 07:59 Dose: 5 mg Documented By: REZA Gabapentin (Gabapentin 100 Mg Capsule) 100 mg PO BID [facility] Last Admin: 02/06/23 07:59 Dose: 100 mg Documented By: REZA Glucose (Glucose Gel 15 Gm Gel..Gram.) 15 gm PO Q15M PRN; Protocol PRN Reason: per Hypoglycemia Standing Ord. Dextrose (D10) 250 mls @ 750 mls/hr IV Q15M PRN; Protocol PRN Reason: per Hypoglycemia Standing Ord. Insulin Human Lispro (Insulin Lispro 100 Unit/Ml 3 Ml Vial) 0 unit SUBCUT QIDACHS [facility]; Protocol Last Admin: 02/06/23 07:29 Dose: Not Given Documented By: REZA Non-Admin Reason: No Insulin Coverage Metformin HCl (Metformin Hcl Er 500 Mg Tab.Er.24h) 2,000 mg PO DAILY [facility] Last Admin: 02/06/23 07:57 Dose: 2,000 mg Documented By: REZA Metoprolol Tartrate (Metoprolol Tartrate 25 Mg Tablet) 25 mg PO BID [facility]; Protocol Last Admin: 02/06/23 07:59 Dose: 25 mg Documented By: REZA Olanzapine (Olanzapine 10 Mg Vial) 5 mg IM DAILY PRN PRN Reason: agitation Olanzapine (Olanzapine 2.5 Mg Tablet) 2.5 mg PO Q4H PRN PRN Reason: Delirium Last Admin: 02/06/23 03:19 Dose: 2.5 mg Documented By: SHASHANK Olanzapine (Olanzapine 2.5 Mg Tablet) 2.5 mg PO DAILY [facility] Last Admin: 02/06/23 07:59 Dose: 2.5 mg Documented By: REZA Ondansetron HCl (Ondansetron Hcl 4 Mg/2 Ml Vial) 4 mg IVPUSH Q8H PRN PRN Reason: Nausea and Vomiting Ondansetron HCl (Ondansetron Hcl 4 Mg/2 Ml Vial) 4 mg IVPUSH ONCE PRN PRN Reason: Nausea and Vomiting Pharmacy Consult (Consult Rx Perform Med Rec) 1 each MISCELLANE ONCE PRN PRN Reason: Consult order Pravastatin Sodium (Pravastatin Sodium 40 Mg Tablet) 40 mg PO BEDTIME [facility] Last Admin: 02/05/23 21:27 Dose: 40 mg Documented By: SHASHANK Sodium Chloride (0.9 % Sodium Chloride Flush 3 Ml Syringe) 3 ml IVFLUSH QSHIFT [facility] Last Admin: 02/06/23 07:01 Dose: Not Given Documented By: REZA Non-Admin Reason: No Access Tamsulosin HCl (Tamsulosin Hcl 0.4 Mg Capsule) 0.8 mg PO DAILY [facility] Last Admin: 02/06/23 07:58 Dose: 0.8 mg Documented By: REZA Labs 01/31/23 06:18 01/31/23 06:18 Labs: Laboratory Results - last 24 hr 02/05/23 02/05/23 02/05/23 11:02 16:11 20:27 POC Glucose 180 H 137 H 215 H 02/06/23 07:15 POC Glucose 144 H Assessment and Plan (1) Pain due to malignant neoplasm metastatic to bone: Status: Acute Plan 82-year-old male with a PMH significant for recently diagnosed?AFib on Eliquis, [id number]-itybnxzwp diabetes, and enlarged prostate who presented to the ED with?generalized weakness.? Patient recently presented to the emergency room 5 days prior on 12/26/2022 for evaluation of lower back pain.? Patient was found to have new onset AFib with RVR and a likely UTI.? CT scan of abdomen and pelvis found a marked heterogeneous enlargement the prostate gland with asymmetric nodular thickening of the left seminal vesicle concerning for primary malignancy.? 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 Continue Casodex as per Urology acute hypoxic respiratory failure 2/2 LLL atelactasis lung toileting wean o2 as tolerated Paroxysmal afib with rvr rate control, continue metoprolol and Eliquis Metabolic encephalopathy ( acute delirium in backdrop of chronic dementia) likely natural progression of dementia patient lacks capacity to make most medical decisions and unlikely to be able to live safely independently(psychiatry) awaiting placement(insurance pending) ANTONELLA on CKD II resolved after Mclaughlin placement DMI acceptable control on metformin and lispro correctional scale paroxysmal afib Eliquis, lopressor full code dvt prophylaxis - on eliquis Requires continued hospitalization: pending safe discharge to SNF Time Spent With Patient Time: Total time managing care of this patient today ____ minutes. Quality Stroke Does the patient have a stroke diagnosis?: No VTE Prior VTE?: No VTE Risk Level:: Medical - moderate - high VTE Device Contraindication: Treatment Not Indicated VTE Drug Contraindication: N/A - Med Ordered
[2023-02-06] MEDS: oxyCODONE HCl Immed Release 5 MG TABLET PO ×2 (09:07→20:46)
[2023-02-06 11:16] LABS: Glucose, Whole Blood 189 mg/dL (60-115)
[2023-02-06] MEDS: Insulin Lispro 100 UNIT/ML 3 ML VIAL SUBCUT ×2 (11:57→16:36)
[2023-02-06 15:10] VITALS: BP 109/54; PULSE 94; RESP 18; TEMP 36.9; O2SAT 97
[2023-02-06 16:15] LABS: Glucose, Whole Blood 280 mg/dL (60-115)
[2023-02-06 19:28] VITALS: BP 116/57; PULSE 76; RESP 17; TEMP 36.6; O2SAT 97
[2023-02-06 20:22] LABS: Glucose, Whole Blood 121 mg/dL (60-115)
[2023-02-06] MEDS: Pravastatin Sodium 40 MG TABLET PO (20:38)
[2023-02-07 03:55] VITALS: BP 118/57; PULSE 67; RESP 18; TEMP 36.4; O2SAT 98
[2023-02-07] MEDS: Acetaminophen 325 MG TABLET 975 MG PO ×4 (05:16→23:21)
[2023-02-07 07:34] LABS: Glucose, Whole Blood 158 mg/dL (60-115)
[2023-02-07 07:51] LABS: Creatinine Clr Calc Pharmacy 48.3; Estimated Glomerular Filt Rate > 60
[2023-02-07 08:00] VITALS: BP 137/67; PULSE 81; RESP 17; TEMP 36.8; O2SAT 95
[2023-02-07 08:02] LABS: Hematocrit 30.2 % (42.0-52.0); Hemoglobin 10.2 g/dl (14.0-18.0); Mean Corpuscular HGB Conc 33.8 g/dl (31.0-36.0); Mean Corpuscular Hemoglobin 30.4 pg (27.0-33.0); Mean Corpuscular Volume 89.9 fL (80.0-98.0); Mean Platelet Volume 9.4 fL (9.4-12.4); Platelet Count 410 X10*3/uL (160-400); Red Blood Count 3.36 X10*6/uL (4.60-5.80); Red Cell Distribution Width 13.3 % (11.0-16.0); White Blood Count 8.2 X10*3/uL (4.8-10.8)
[2023-02-07] MEDS: Apixaban 2.5 MG TABLET PO ×2 (08:34→20:15)
[2023-02-07] MEDS: metFORMIN HCl ER 500 MG TAB.ER.24H 2000 MG PO (08:34)
[2023-02-07] MEDS: amLODIPine Besylate 5 MG TABLET PO (08:34)
[2023-02-07] MEDS: Tamsulosin HCL 0.4 MG CAPSULE 0.8 MG PO (08:35)
[2023-02-07] MEDS: Metoprolol Tartrate 25 MG TABLET PO ×2 (08:35→20:15)
[2023-02-07] MEDS: Insulin Lispro 100 UNIT/ML 3 ML VIAL SUBCUT ×4 (08:35→20:47)
[2023-02-07] MEDS: Finasteride 5 MG TABLET PO (08:35)
[2023-02-07] MEDS: Bicalutamide 50 MG TABLET PO ×3 (08:35→20:15)
[2023-02-07] MEDS: OLANZapine 2.5 MG TABLET PO (08:35)
[2023-02-07] MEDS: Gabapentin 100 MG CAPSULE PO ×2 (08:35→20:15)
[2023-02-07 11:35] LABS: Glucose, Whole Blood 193 mg/dL (60-115)
--- NOTE | 2023-02-07 11:36 | MHC.CLN ---
F/U STAGE II TO COCCYX; REDNESS TO LEFT HEEL. DIET=DIABETIC 2000 KCALS. ENSURE MAX TID PROVIDES ADDITIONAL 450 KCALS, 90 G PROTEIN TO PROMOTE WOUND HEALING. DIET AND SUPPLEMENT APPROPRIATE. CONTINUES WITH USUALLY GOOD INTAKE AT MEALS, 75-100%. DX PROSTATE CANCER WITH METS TO BONE. FOLLOW FOR INTAKE AND WOUND HEALING. RD TO FOLLOW WEEKLY.
--- NOTE | 2023-02-07 12:38 | P.PNIM_ITS ---
Subjective Subjective Date of Service: 02/07/23 Interval History: Seen and evaluated this morning Hb down to 10, no bleeding noticed sitting in his bed Pain under fair control Review of Systems Review of Systems: Yes all other systems are reviewed and are negative Physical Exam Vital Signs: Vital Signs: Last Vital Signs Temp 98.3 F 02/07/23 08:00 Pulse 81 02/07/23 08:00 Resp 17 02/07/23 08:00 BP 137/67 02/07/23 08:00 Pulse Ox 95 02/07/23 08:00 O2 Del Method Room Air 02/07/23 08:00 O2 Flow Rate 2 01/19/23 22:40 Oxygen Flow Rate 3 01/10/23 18:20 BMI result Body Mass Index 24.2 Const: Other: General: AO X 2, no acute distress GI: +BS, NT, no distention Skin: No rash, Mclaughlin in place Neuro:? motor grossly intact Psych: appropriate affect Objective Data Active Medications Acetaminophen (Acetaminophen 325 Mg Tablet) 975 mg PO Q6H [facility] Last Admin: 02/07/23 11:43 Dose: 975 mg Documented By: EMMY Amlodipine Besylate (Amlodipine Besylate 5 Mg Tablet) 5 mg PO DAILY [facility]; Protocol Last Admin: 02/07/23 08:34 Dose: 5 mg Documented By: EMMY Apixaban (Apixaban 2.5 Mg Tablet) 2.5 mg PO BID [facility] Last Admin: 02/07/23 08:34 Dose: 2.5 mg Documented By: EMMY Bicalutamide (Bicalutamide 50 Mg Tablet) 50 mg PO TID [facility] Last Admin: 02/07/23 08:35 Dose: 50 mg Documented By: EMMY Docusate Sodium (Docusate Sodium 100 Mg Capsule) 100 mg PO DAILY PRN PRN Reason: Constipation Last Admin: 01/05/23 08:05 Dose: 100 mg Documented By: MIKE Finasteride (Finasteride 5 Mg Tablet) 5 mg PO DAILY [facility] Last Admin: 02/07/23 08:35 Dose: 5 mg Documented By: EMMY Gabapentin (Gabapentin 100 Mg Capsule) 100 mg PO BID [facility] Last Admin: 02/07/23 08:35 Dose: 100 mg Documented By: EMMY Glucose (Glucose Gel 15 Gm Gel..Gram.) 15 gm PO Q15M PRN; Protocol PRN Reason: per Hypoglycemia Standing Ord. Dextrose (D10) 250 mls @ 750 mls/hr IV Q15M PRN; Protocol PRN Reason: per Hypoglycemia Standing Ord. Insulin Human Lispro (Insulin Lispro 100 Unit/Ml 3 Ml Vial) 0 unit SUBCUT QIDACHS [facility]; Protocol Last Admin: 02/07/23 11:43 Dose: 2 unit Documented By: EMMY Metformin HCl (Metformin Hcl Er 500 Mg Tab.Er.24h) 2,000 mg PO DAILY [facility] Last Admin: 02/07/23 08:34 Dose: 2,000 mg Documented By: EMMY Metoprolol Tartrate (Metoprolol Tartrate 25 Mg Tablet) 25 mg PO BID [facility]; Protocol Last Admin: 02/07/23 08:35 Dose: 25 mg Documented By: EMMY Olanzapine (Olanzapine 10 Mg Vial) 5 mg IM DAILY PRN PRN Reason: agitation Olanzapine (Olanzapine 2.5 Mg Tablet) 2.5 mg PO Q4H PRN PRN Reason: Delirium Last Admin: 02/06/23 03:19 Dose: 2.5 mg Documented By: SHASHANK Olanzapine (Olanzapine 2.5 Mg Tablet) 2.5 mg PO DAILY [facility] Last Admin: 02/07/23 08:35 Dose: 2.5 mg Documented By: EMMY Ondansetron HCl (Ondansetron Hcl 4 Mg/2 Ml Vial) 4 mg IVPUSH Q8H PRN PRN Reason: Nausea and Vomiting Ondansetron HCl (Ondansetron Hcl 4 Mg/2 Ml Vial) 4 mg IVPUSH ONCE PRN PRN Reason: Nausea and Vomiting Oxycodone HCl (Oxycodone Hcl Immed Release 5 Mg Tablet) 5 mg PO Q6H PRN PRN Reason: Pain, Severe (Pain Scale 7-10) Last Admin: 02/06/23 20:46 Dose: 5 mg Documented By: VIANEY Pharmacy Consult (Consult Rx Perform Med Rec) 1 each MISCELLANE ONCE PRN PRN Reason: Consult order Pravastatin Sodium (Pravastatin Sodium 40 Mg Tablet) 40 mg PO BEDTIME [facility] Last Admin: 02/06/23 20:38 Dose: 40 mg Documented By: VIANEY Sodium Chloride (0.9 % Sodium Chloride Flush 3 Ml Syringe) 3 ml IVFLUSH QSHIFT [facility] Last Admin: 02/07/23 08:35 Dose: Not Given Documented By: EMMY Non-Admin Reason: No Insulin Coverage Tamsulosin HCl (Tamsulosin Hcl 0.4 Mg Capsule) 0.8 mg PO DAILY [facility] Last Admin: 02/07/23 08:35 Dose: 0.8 mg Documented By: EMMY Labs 02/07/23 07:27 02/07/23 07:27 Labs: Laboratory Results - last 24 hr 02/06/23 02/06/23 02/07/23 16:02 20:11 07:18 MCV MCH MCHC RDW Plt Count MPV Absolute Nucleated RBC Nucleated RBC % (auto) Estim Creat Clear Calc Estimated GFR POC Glucose 280 H 121 H 158 H 02/07/23 02/07/23 02/07/23 07:27 07:27 11:21 MCV 89.9 MCH 30.4 MCHC 33.8 RDW 13.3 Plt Count 410 H D MPV 9.4 Absolute Nucleated RBC 0.000 Nucleated RBC % (auto) 0.0 Estim Creat Clear Calc 48.3 Estimated GFR > 60 POC Glucose 193 H Assessment and Plan (1) Pain due to malignant neoplasm metastatic to bone: Status: Acute Plan 82-year-old male with a PMH significant for recently diagnosed?AFib on Eliquis, [id number] diabetes, and enlarged prostate who presented to the ED with?generalized weakness.? Patient recently presented to the emergency room 5 days prior on 12/26/2022 for evaluation of lower back pain.? Patient was found to have new onset AFib with RVR and a likely UTI.? CT scan of abdomen and pelvis found a marked heterogeneous enlargement the prostate gland with asymmetric nodular thickening of the left seminal vesicle concerning for primary malignancy.? 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 Continue Casodex as per Urology acute hypoxic respiratory failure 2/2 LLL atelactasis lung toileting wean o2 as tolerated Paroxysmal afib with rvr rate control, continue metoprolol and Eliquis Metabolic encephalopathy ( acute delirium in backdrop of chronic dementia) likely natural progression of dementia patient lacks capacity to make most medical decisions and unlikely to be able to live safely independently(psychiatry) awaiting placement(insurance pending) ANTONELLA on CKD II resolved after Mclaughlin placement acute on chronic anemia Hb down to 10 from 12 over 1 month. no reported bleeding check occult stool follow CBC DMI acceptable control on metformin and lispro correctional scale paroxysmal afib Eliquis, lopressor full code dvt prophylaxis - on eliquis Requires continued hospitalization: pending safe discharge to SNF Time Spent With Patient Time: Total time managing care of this patient today ____ minutes. Quality Stroke Does the patient have a stroke diagnosis?: No VTE Prior VTE?: No VTE Risk Level:: Medical - moderate - high VTE Device Contraindication: Treatment Not Indicated VTE Drug Contraindication: N/A - Med Ordered
--- NOTE | 2023-02-07 13:19 | MHC.CM.PN ---
per rounds pt is ready for dc whenever the finacial piece is in place and an accepting facility is located
[2023-02-07 16:00] VITALS: BP 128/58; PULSE 90; RESP 18; TEMP 36.6; O2SAT 99
[2023-02-07 16:39] LABS: Glucose, Whole Blood 169 mg/dL (60-115)
[2023-02-07 20:00] VITALS: BP 127/57; PULSE 91; RESP 20; TEMP 36.2; O2SAT 97
[2023-02-07] MEDS: Pravastatin Sodium 40 MG TABLET PO (20:15)
[2023-02-07 20:56] LABS: Glucose, Whole Blood 163 mg/dL (60-115)
[2023-02-08 04:00] VITALS: BP 154/80; PULSE 83; RESP 19; TEMP 36.6; O2SAT 93
[2023-02-08] MEDS: Acetaminophen 325 MG TABLET 975 MG PO ×3 (06:16→17:07)
[2023-02-08 07:24] VITALS: BP 118/56; PULSE 86; RESP 18; TEMP 36.2; O2SAT 96
[2023-02-08 07:30] LABS: Glucose, Whole Blood 129 mg/dL (60-115)
[2023-02-08] MEDS: Tamsulosin HCL 0.4 MG CAPSULE 0.8 MG PO (07:55)
[2023-02-08] MEDS: Gabapentin 100 MG CAPSULE PO ×2 (07:55→20:52)
[2023-02-08] MEDS: Metoprolol Tartrate 25 MG TABLET PO ×2 (07:56→20:52)
[2023-02-08] MEDS: metFORMIN HCl ER 500 MG TAB.ER.24H 2000 MG PO (07:56)
[2023-02-08] MEDS: Apixaban 2.5 MG TABLET PO ×2 (07:56→20:52)
[2023-02-08] MEDS: Finasteride 5 MG TABLET PO (07:57)
[2023-02-08] MEDS: Bicalutamide 50 MG TABLET PO ×3 (07:57→20:53)
[2023-02-08] MEDS: amLODIPine Besylate 5 MG TABLET PO (07:57)
[2023-02-08] MEDS: OLANZapine 2.5 MG TABLET PO (07:57)
--- NOTE | 2023-02-08 10:08 | P.PNIM_ITS ---
Subjective Subjective Date of Service: 02/08/23 Interval History: no complaints Physical Exam Vital Signs: Vital Signs: Last Vital Signs Temp 97.1 F 02/08/23 07:24 Pulse 86 02/08/23 07:24 Resp 18 02/08/23 07:24 BP 118/56 L 02/08/23 07:24 Pulse Ox 96 02/08/23 07:24 O2 Del Method Room Air 02/08/23 07:24 O2 Flow Rate 2 01/19/23 22:40 Oxygen Flow Rate 3 01/10/23 18:20 BMI result Body Mass Index 24.2 Const: Other: General: AO X 2, no acute distress GI: +BS, NT, no distention Skin: No rash, Mclaughlin in place Neuro:? motor grossly intact Psych: appropriate affect Objective Data Active Medications Acetaminophen (Acetaminophen 325 Mg Tablet) 975 mg PO Q6H [facility] Last Admin: 02/08/23 06:16 Dose: 975 mg Documented By: ODJORDAN Amlodipine Besylate (Amlodipine Besylate 5 Mg Tablet) 5 mg PO DAILY [facility]; Protocol Last Admin: 02/08/23 07:57 Dose: 5 mg Documented By: TALIB Apixaban (Apixaban 2.5 Mg Tablet) 2.5 mg PO BID [facility] Last Admin: 02/08/23 07:56 Dose: 2.5 mg Documented By: TALIB Bicalutamide (Bicalutamide 50 Mg Tablet) 50 mg PO TID [facility] Last Admin: 02/08/23 07:57 Dose: 50 mg Documented By: TALIB Docusate Sodium (Docusate Sodium 100 Mg Capsule) 100 mg PO DAILY PRN PRN Reason: Constipation Last Admin: 01/05/23 08:05 Dose: 100 mg Documented By: RIOSCEL Finasteride (Finasteride 5 Mg Tablet) 5 mg PO DAILY [facility] Last Admin: 02/08/23 07:57 Dose: 5 mg Documented By: TALIB Gabapentin (Gabapentin 100 Mg Capsule) 100 mg PO BID [facility] Last Admin: 02/08/23 07:55 Dose: 100 mg Documented By: TALIB Glucose (Glucose Gel 15 Gm Gel..Gram.) 15 gm PO Q15M PRN; Protocol PRN Reason: per Hypoglycemia Standing Ord. Dextrose (D10) 250 mls @ 750 mls/hr IV Q15M PRN; Protocol PRN Reason: per Hypoglycemia Standing Ord. Insulin Human Lispro (Insulin Lispro 100 Unit/Ml 3 Ml Vial) 0 unit SUBCUT QIDACHS [facility]; Protocol Last Admin: 02/08/23 07:47 Dose: Not Given Documented By: TALIB Non-Admin Reason: No Insulin Coverage Metformin HCl (Metformin Hcl Er 500 Mg Tab.Er.24h) 2,000 mg PO DAILY [facility] Last Admin: 02/08/23 07:56 Dose: 2,000 mg Documented By: TALIB Metoprolol Tartrate (Metoprolol Tartrate 25 Mg Tablet) 25 mg PO BID [facility]; Protocol Last Admin: 02/08/23 07:56 Dose: 25 mg Documented By: TALIB Olanzapine (Olanzapine 10 Mg Vial) 5 mg IM DAILY PRN PRN Reason: agitation Olanzapine (Olanzapine 2.5 Mg Tablet) 2.5 mg PO Q4H PRN PRN Reason: Delirium Last Admin: 02/06/23 03:19 Dose: 2.5 mg Documented By: SHASHANK Olanzapine (Olanzapine 2.5 Mg Tablet) 2.5 mg PO DAILY [facility] Last Admin: 02/08/23 07:57 Dose: 2.5 mg Documented By: TALIB Ondansetron HCl (Ondansetron Hcl 4 Mg/2 Ml Vial) 4 mg IVPUSH Q8H PRN PRN Reason: Nausea and Vomiting Ondansetron HCl (Ondansetron Hcl 4 Mg/2 Ml Vial) 4 mg IVPUSH ONCE PRN PRN Reason: Nausea and Vomiting Oxycodone HCl (Oxycodone Hcl Immed Release 5 Mg Tablet) 5 mg PO Q6H PRN PRN Reason: Pain, Severe (Pain Scale 7-10) Last Admin: 02/06/23 20:46 Dose: 5 mg Documented By: VIANEY Pharmacy Consult (Consult Rx Perform Med Rec) 1 each MISCELLANE ONCE PRN PRN Reason: Consult order Pravastatin Sodium (Pravastatin Sodium 40 Mg Tablet) 40 mg PO BEDTIME [facility] Last Admin: 02/07/23 20:15 Dose: 40 mg Documented By: VIANEY Sodium Chloride (0.9 % Sodium Chloride Flush 3 Ml Syringe) 3 ml IVFLUSH QSHIFT [facility] Last Admin: 02/08/23 08:00 Dose: Not Given Documented By: TALIB Non-Admin Reason: No Access Tamsulosin HCl (Tamsulosin Hcl 0.4 Mg Capsule) 0.8 mg PO DAILY [facility] Last Admin: 02/08/23 07:55 Dose: 0.8 mg Documented By: TALIB Labs 02/07/23 07:27 02/07/23 07:27 Labs: Laboratory Results - last 24 hr 02/07/23 02/07/23 02/07/23 11:21 16:28 20:25 POC Glucose 193 H 169 H 163 H 02/08/23 07:26 POC Glucose 129 H Assessment and Plan (1) Pain due to malignant neoplasm metastatic to bone: Status: Acute Plan 82-year-old male with a PMH significant for recently diagnosed?AFib on Eliquis, [id number]-lskwwbphj diabetes, and enlarged prostate who presented to the ED with?generalized weakness.? Patient recently presented to the emergency room 5 days prior on 12/26/2022 for evaluation of lower back pain.? Patient was found to have new onset AFib with RVR and a likely UTI.? CT scan of abdomen and pelvis found a marked heterogeneous enlargement the prostate gland with asymmetric nodular thickening of the left seminal vesicle concerning for primary malignancy.? 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 Continue Casodex as per Urology acute hypoxic respiratory failure 2/2 LLL atelactasis reolved Paroxysmal afib with rvr rate control, continue metoprolol and Eliquis Metabolic encephalopathy ( acute delirium in backdrop of chronic dementia) likely natural progression of dementia patient lacks capacity to make most medical decisions and unlikely to be able to live safely independently(psychiatry) awaiting placement(insurance pending) ANTONELLA on CKD II resolved after [facility] placement acute on chronic anemia Hb down to 10 from 12 over 1 month. no reported bleeding DMI acceptable control on metformin and lispro correctional scale paroxysmal afib Eliquis, lopressor full code dvt prophylaxis - on eliquis Requires continued hospitalization: pending safe discharge to SNF Time Spent With Patient Time: Total time managing care of this patient today ____ minutes. Quality Stroke Does the patient have a stroke diagnosis?: No VTE Prior VTE?: No VTE Risk Level:: Medical - moderate - high VTE Device Contraindication: Treatment Not Indicated VTE Drug Contraindication: N/A - Med Ordered
[2023-02-08 11:11] LABS: Glucose, Whole Blood 246 mg/dL (60-115)
[2023-02-08] MEDS: Insulin Lispro 100 UNIT/ML 3 ML VIAL SUBCUT ×2 (11:54→20:53)
--- NOTE | 2023-02-08 13:26 | MHC.CM.PN ---
Addendum entered by Brie Mg 02/08/23 15:56: PER FS, MH ESTRELLITA IS STILL IN PROCESS Original Note: REFERRALS FOR LTC PLACEMENT UPDATED, MESSAGE LEFT FOR FS TO INQUIRE ABOUT STATUS OF MH APPLICATION. AWAITING RESPONSE.
[2023-02-08 15:39] VITALS: BP 143/65; PULSE 62; RESP 20; TEMP 36.4; O2SAT 97
[2023-02-08 16:16] LABS: Glucose, Whole Blood 107 mg/dL (60-115)
[2023-02-08 18:52] LABS: OBS Int Ctl Valid YES; OBS1 NEGATIVE (NEGATIVE)
[2023-02-08 20:00] VITALS: BP 133/62; PULSE 66; RESP 16; TEMP 36.7; O2SAT 97
[2023-02-08 20:20] LABS: Glucose, Whole Blood 157 mg/dL (60-115)
[2023-02-08] MEDS: Pravastatin Sodium 40 MG TABLET PO (20:52)
[2023-02-09] MEDS: Acetaminophen 325 MG TABLET 975 MG PO ×5 (00:10→23:42)
[2023-02-09 03:52] VITALS: BP 112/63; PULSE 79; RESP 18; TEMP 36.3; O2SAT 96
--- NOTE | 2023-02-09 06:33 | PC.NURSE ---
noted patient was catherized at 2240 previous shift for retention and only incontinent of small amount urine between [id number]. bladder scan revealed 227ml at 0610, will continue to monitor and pt wishes to try and void shortly. will cont to monitor.
[2023-02-09 07:12] VITALS: BP 140/72; PULSE 86; RESP 16; TEMP 36.6; O2SAT 96
[2023-02-09 07:36] LABS: Glucose, Whole Blood 197 mg/dL (60-115)
--- NOTE | 2023-02-09 08:06 | HO.PM.IMPN ---
Subjective Subjective Date of Service: 02/09/23 Interval History: no complaints Physical Exam Vital Signs: Vital Signs: Last Vital Signs Temp 97.8 F 02/09/23 07:12 Pulse 86 02/09/23 07:12 Resp 16 02/09/23 07:12 BP 140/72 H 02/09/23 07:12 Pulse Ox 96 02/09/23 07:12 O2 Del Method Room Air 02/09/23 07:12 O2 Flow Rate 2 01/19/23 22:40 Oxygen Flow Rate 3 01/10/23 18:20 BMI result Body Mass Index 24.2 Const: Other: General: AO X 2, no acute distress GI: +BS, NT, no distention Skin: No rash, Mclaughlin in place Neuro:? motor grossly intact Psych: appropriate affect Objective Data Active Medications Acetaminophen (Acetaminophen 325 Mg Tablet) 975 mg PO Q6H [facility] [place] Last Admin: 02/09/23 05:35 Dose: 975 mg Documented By: MATT Amlodipine Besylate (Amlodipine Besylate 5 Mg Tablet) 5 mg PO DAILY [facility]; Protocol Last Admin: 02/08/23 07:57 Dose: 5 mg Documented By: TALIB Apixaban (Apixaban 2.5 Mg Tablet) 2.5 mg PO BID [facility] [place] Last Admin: 02/08/23 20:52 Dose: 2.5 mg Documented By: KAYLYN Bicalutamide (Bicalutamide 50 Mg Tablet) 50 mg PO TID [facility] Last Admin: 02/08/23 20:53 Dose: 50 mg Documented By: KAYLYN Docusate Sodium (Docusate Sodium 100 Mg Capsule) 100 mg PO DAILY PRN PRN Reason: Constipation Last Admin: 01/05/23 08:05 Dose: 100 mg Documented By: RIOSCJOSESITO Finasteride (Finasteride 5 Mg Tablet) 5 mg PO DAILY [facility] [place] Last Admin: 02/08/23 07:57 Dose: 5 mg Documented By: TALIB Gabapentin (Gabapentin 100 Mg Capsule) 100 mg PO BID [facility] Last Admin: 02/08/23 20:52 Dose: 100 mg Documented By: KAYLYN Glucose (Glucose Gel 15 Gm Gel..Gram.) 15 gm PO Q15M PRN; Protocol PRN Reason: per Hypoglycemia Standing Ord. Dextrose (D10) 250 mls @ 750 mls/hr IV Q15M PRN; Protocol PRN Reason: per Hypoglycemia Standing Ord. Insulin Human Lispro (Insulin Lispro 100 Unit/Ml 3 Ml Vial) 0 unit SUBCUT QIDACHS [facility]; Protocol Last Admin: 02/08/23 20:53 Dose: 2 unit Documented By: KAYLYN Metformin HCl (Metformin Hcl Er 500 Mg Tab.Er.24h) 2,000 mg PO DAILY [facility] [place] Last Admin: 02/08/23 07:56 Dose: 2,000 mg Documented By: TALIB Metoprolol Tartrate (Metoprolol Tartrate 25 Mg Tablet) 25 mg PO BID [facility] [place]; Protocol Last Admin: 02/08/23 20:52 Dose: 25 mg Documented By: KAYLYN Olanzapine (Olanzapine 10 Mg Vial) 5 mg IM DAILY PRN PRN Reason: agitation Olanzapine (Olanzapine 2.5 Mg Tablet) 2.5 mg PO Q4H PRN PRN Reason: Delirium Last Admin: 02/06/23 03:19 Dose: 2.5 mg Documented By: JUANB Olanzapine (Olanzapine 2.5 Mg Tablet) 2.5 mg PO DAILY [facility] [place] Last Admin: 02/08/23 07:57 Dose: 2.5 mg Documented By: TALIB Ondansetron HCl (Ondansetron Hcl 4 Mg/2 Ml Vial) 4 mg IVPUSH Q8H PRN PRN Reason: Nausea and Vomiting Ondansetron HCl (Ondansetron Hcl 4 Mg/2 Ml Vial) 4 mg IVPUSH ONCE PRN PRN Reason: Nausea and Vomiting Oxycodone HCl (Oxycodone Hcl Immed Release 5 Mg Tablet) 5 mg PO Q6H PRN PRN Reason: Pain, Severe (Pain Scale 7-10) Last Admin: 02/06/23 20:46 Dose: 5 mg Documented By: VIANEY Pharmacy Consult (Consult Rx Perform Med Rec) 1 each MISCELLANE ONCE PRN PRN Reason: Consult order Pravastatin Sodium (Pravastatin Sodium 40 Mg Tablet) 40 mg PO BEDTIME [facility] [place] Last Admin: 02/08/23 20:52 Dose: 40 mg Documented By: KAYLYN Sodium Chloride (0.9 % Sodium Chloride Flush 3 Ml Syringe) [facility] Last Admin: 02/09/23 00:13 Dose: Not Given Documented By: MATT Non-Admin Reason: No Access Tamsulosin HCl (Tamsulosin Hcl 0.4 Mg Capsule) 0.8 mg PO DAILY [facility] Last Admin: 02/08/23 07:55 Dose: 0.8 mg Documented By: TALIB Labs 02/07/23 07:27 02/07/23 07:27 Labs: Laboratory Results - last 24 hr 02/08/23 02/08/23 02/08/23 11:08 16:13 16:28 POC Glucose 246 H 107 Stool Occult Blood NEGATIVE 02/08/23 02/09/23 20:03 07:30 POC Glucose 157 H 197 H Stool Occult Blood Assessment and Plan (1) Pain due to malignant neoplasm metastatic to bone: Status: Acute Plan 82-year-old male with a PMH significant for recently diagnosed?AFib on Eliquis, gqt-fljuusi-evodfvezx diabetes, and enlarged prostate who presented to the ED with?generalized weakness.? Patient recently presented to the emergency room 5 days prior on 12/26/2022 for evaluation of lower back pain.? Patient was found to have new onset AFib with RVR and a likely UTI.? CT scan of abdomen and pelvis found a marked heterogeneous enlargement the prostate gland with asymmetric nodular thickening of the left seminal vesicle concerning for primary malignancy.? 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 Continue Casodex as per Urology acute hypoxic respiratory failure 2/2 LLL atelactasis reolved Paroxysmal afib with rvr rate control, continue metoprolol and Eliquis Metabolic encephalopathy ( acute delirium in backdrop of chronic dementia) likely natural progression of dementia patient lacks capacity to make most medical decisions and unlikely to be able to live safely independently(psychiatry) awaiting placement(insurance pending) ANTONELLA on CKD II resolved after [facility] placement acute on chronic anemia Hb down to 10 from 12 over 1 month. no reported bleeding DMI acceptable control on metformin and lispro correctional scale paroxysmal afib Eliquis, lopressor full code dvt prophylaxis - on eliquis Requires continued hospitalization: pending safe discharge to SNF Time Spent With Patient Time: Total time managing care of this patient today ____ minutes. Quality Stroke Does the patient have a stroke diagnosis?: No VTE Prior VTE?: No VTE Risk Level:: Medical - moderate - high VTE Device Contraindication: Treatment Not Indicated VTE Drug Contraindication: N/A - Med Ordered
[2023-02-09] MEDS: Insulin Lispro 100 UNIT/ML 3 ML VIAL SUBCUT ×3 (08:51→20:56)
[2023-02-09] MEDS: Tamsulosin HCL 0.4 MG CAPSULE 0.8 MG PO (08:52)
[2023-02-09] MEDS: Gabapentin 100 MG CAPSULE PO ×2 (08:52→20:56)
[2023-02-09] MEDS: metFORMIN HCl ER 500 MG TAB.ER.24H 2000 MG PO (08:52)
[2023-02-09] MEDS: Bicalutamide 50 MG TABLET PO ×3 (08:53→20:57)
[2023-02-09] MEDS: Metoprolol Tartrate 25 MG TABLET PO ×2 (08:53→20:56)
[2023-02-09] MEDS: Apixaban 2.5 MG TABLET PO ×2 (08:53→20:56)
[2023-02-09] MEDS: OLANZapine 2.5 MG TABLET PO (08:53)
[2023-02-09] MEDS: Finasteride 5 MG TABLET PO (08:53)
[2023-02-09] MEDS: amLODIPine Besylate 5 MG TABLET PO (08:53)
[2023-02-09 11:16] LABS: Glucose, Whole Blood 261 mg/dL (60-115)
--- NOTE | 2023-02-09 14:02 | MHC.CM.PN ---
per rounds pt ready for dc continuing w/ bed search
--- NOTE | 2023-02-09 14:36 | P.CDIM_ITS ---
PROVIDER RESPONSE TEXT: To clarify, the appropriate diagnosis supported by the clinical indicators: Other (explain): unspecified QUERY TEXT: PHYSICIAN'S DOCUMENTATION REQUEST Date of Query: 02/09/2023 02:28 PM EDT Patient Name: Donte Hernandez Admit Date: 12/31/2022 Dear Kraig Robert, A review of the medical record indicates additional documentation may be needed. Please review below and update the documentation accordingly. The purpose of this query is not to question medical judgment, but to ensure the accuracy of the cond itions reported for your patient. The diagnosis of DM1is documented in the record on 02/09/23. 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 Please use your independent medical judgment in providing your response. THIS QUERY IS PART OF THE PERMANENT MEDICAL RECORD
[2023-02-09 15:58] VITALS: BP 138/70; PULSE 82; RESP 16; TEMP 36.3; O2SAT 98
[2023-02-09 16:25] LABS: Glucose, Whole Blood 80 mg/dL (60-115)
[2023-02-09 20:00] VITALS: BP 125/64; PULSE 86; RESP 16; TEMP 36.1; O2SAT 98
[2023-02-09 20:21] LABS: Glucose, Whole Blood 174 mg/dL (60-115)
[2023-02-09] MEDS: Pravastatin Sodium 40 MG TABLET PO (20:56)
--- NOTE | 2023-02-10 00:44 | PC.NURSE ---
Pt had Bladder scan= 868 ml, Dr. Carmona was informed, Straight cath ordered, pt was updated, pt complied, straight cath done aseptically with 1300ml output clear and yellow.
[2023-02-10 03:20] VITALS: BP 118/64; PULSE 81; RESP 18; TEMP 36.4; O2SAT 96
[2023-02-10 07:17] VITALS: BP 147/72; PULSE 74; RESP 18; TEMP 36.2; O2SAT 97
[2023-02-10 07:20] VITALS: BP 147/72; PULSE 74; RESP 18; TEMP 36.2; O2SAT 97
[2023-02-10 07:39] LABS: Glucose, Whole Blood 241 mg/dL (60-115)
[2023-02-10] MEDS: metFORMIN HCl ER 500 MG TAB.ER.24H 2000 MG PO (07:50)
[2023-02-10] MEDS: Apixaban 2.5 MG TABLET PO ×2 (07:50→21:23)
[2023-02-10] MEDS: Tamsulosin HCL 0.4 MG CAPSULE 0.8 MG PO (07:50)
[2023-02-10] MEDS: Bicalutamide 50 MG TABLET PO ×3 (07:50→21:22)
[2023-02-10] MEDS: Insulin Lispro 100 UNIT/ML 3 ML VIAL SUBCUT ×2 (07:50→16:47)
[2023-02-10] MEDS: Metoprolol Tartrate 25 MG TABLET PO ×2 (07:51→21:22)
[2023-02-10] MEDS: Gabapentin 100 MG CAPSULE PO ×2 (07:51→21:23)
[2023-02-10] MEDS: Acetaminophen 325 MG TABLET 975 MG PO ×3 (07:51→21:23)
[2023-02-10] MEDS: OLANZapine 2.5 MG TABLET PO (07:51)
[2023-02-10] MEDS: amLODIPine Besylate 5 MG TABLET PO (07:51)
[2023-02-10] MEDS: Finasteride 5 MG TABLET PO (07:52)
--- NOTE | 2023-02-10 08:18 | HO.PM.IMPN ---
Subjective Subjective Date of Service: 02/10/23 Interval History: no complaints Physical Exam Vital Signs: Vital Signs: Last Vital Signs Temp 97.1 F 02/10/23 07:20 Pulse 74 02/10/23 07:20 Resp 18 02/10/23 07:20 BP 147/72 H 02/10/23 07:20 Pulse Ox 97 02/10/23 07:20 O2 Del Method Room Air 02/10/23 07:20 O2 Flow Rate 2 01/19/23 22:40 Oxygen Flow Rate 3 01/10/23 18:20 BMI result Body Mass Index 24.2 Const: Other: General: AO X 2, no acute distress GI: +BS, NT, no distention Skin: No rash, Mclaughlin in place Neuro:? motor grossly intact Psych: appropriate affect Objective Data Active Medications Acetaminophen (Acetaminophen 325 Mg Tablet) 975 mg PO Q6H [facility] Last Admin: 02/10/23 07:51 Dose: 975 mg Documented By: EMMY Amlodipine Besylate (Amlodipine Besylate 5 Mg Tablet) 5 mg PO DAILY [facility]; Protocol Last Admin: 02/10/23 07:51 Dose: 5 mg Documented By: EMMY Apixaban (Apixaban 2.5 Mg Tablet) 2.5 mg PO BID [facility] Last Admin: 02/10/23 07:50 Dose: 2.5 mg Documented By: EMMY Bicalutamide (Bicalutamide 50 Mg Tablet) 50 mg PO TID [facility] Last Admin: 02/10/23 07:50 Dose: 50 mg Documented By: EMMY Docusate Sodium (Docusate Sodium 100 Mg Capsule) 100 mg PO DAILY PRN PRN Reason: Constipation Last Admin: 01/05/23 08:05 Dose: 100 mg Documented By: RIOSCEL Finasteride (Finasteride 5 Mg Tablet) 5 mg PO DAILY [facility] Last Admin: 02/10/23 07:52 Dose: 5 mg Documented By: EMMY Gabapentin (Gabapentin 100 Mg Capsule) 100 mg PO BID [facility] Last Admin: 02/10/23 07:51 Dose: 100 mg Documented By: EMMY Glucose (Glucose Gel 15 Gm Gel..Gram.) 15 gm PO Q15M PRN; Protocol PRN Reason: per Hypoglycemia Standing Ord. Dextrose (D10) 250 mls @ 750 mls/hr IV Q15M PRN; Protocol PRN Reason: per Hypoglycemia Standing Ord. Insulin Human Lispro (Insulin Lispro 100 Unit/Ml 3 Ml Vial) 0 unit SUBCUT QIDACHS [facility]; Protocol Last Admin: 02/10/23 07:50 Dose: 4 unit Documented By: EMMY Metformin HCl (Metformin Hcl Er 500 Mg Tab.Er.24h) 2,000 mg PO DAILY [facility] Last Admin: 02/10/23 07:50 Dose: 2,000 mg Documented By: EMMY Metoprolol Tartrate (Metoprolol Tartrate 25 Mg Tablet) 25 mg PO BID [facility]; Protocol Last Admin: 02/10/23 07:51 Dose: 25 mg Documented By: EMMY Olanzapine (Olanzapine 10 Mg Vial) 5 mg IM DAILY PRN PRN Reason: agitation Olanzapine (Olanzapine 2.5 Mg Tablet) 2.5 mg PO Q4H PRN PRN Reason: Delirium Last Admin: 02/06/23 03:19 Dose: 2.5 mg Documented By: SHASHANK Olanzapine (Olanzapine 2.5 Mg Tablet) 2.5 mg PO DAILY [facility] Last Admin: 02/10/23 07:51 Dose: 2.5 mg Documented By: EMMY Ondansetron HCl (Ondansetron Hcl 4 Mg/2 Ml Vial) 4 mg IVPUSH Q8H PRN PRN Reason: Nausea and Vomiting Ondansetron HCl (Ondansetron Hcl 4 Mg/2 Ml Vial) 4 mg IVPUSH ONCE PRN PRN Reason: Nausea and Vomiting Oxycodone HCl (Oxycodone Hcl Immed Release 5 Mg Tablet) 5 mg PO Q6H PRN PRN Reason: Pain, Severe (Pain Scale 7-10) Last Admin: 02/06/23 20:46 Dose: 5 mg Documented By: VIANEY Pharmacy Consult (Consult Rx Perform Med Rec) 1 each MISCELLANE ONCE PRN PRN Reason: Consult order Pravastatin Sodium (Pravastatin Sodium 40 Mg Tablet) 40 mg PO BEDTIME [facility] Last Admin: 02/09/23 20:56 Dose: 40 mg Documented By: CASTILZoe Sodium Chloride (0.9 % Sodium Chloride Flush 3 Ml Syringe) 3 ml IVFLUSH QSHIFT [facility] Last Admin: 02/10/23 07:51 Dose: Not Given Documented By: EMMY Non-Admin Reason: No Access Tamsulosin HCl (Tamsulosin Hcl 0.4 Mg Capsule) 0.8 mg PO DAILY [facility] Last Admin: 02/10/23 07:50 Dose: 0.8 mg Documented By: EMMY Labs 02/07/23 07:27 02/07/23 07:27 Labs: Laboratory Results - last 24 hr 02/09/23 02/09/23 02/09/23 11:08 16:12 20:15 POC Glucose 261 H 80 174 H 02/10/23 07:23 POC Glucose 241 H Assessment and Plan (1) Pain due to malignant neoplasm metastatic to bone: Status: Acute Plan 82-year-old male with a PMH significant for recently diagnosed?AFib on Eliquis, [id number]-lbgxpeavh diabetes, and enlarged prostate who presented to the ED with?generalized weakness.? Patient recently presented to the emergency room 5 days prior on 12/26/2022 for evaluation of lower back pain.? Patient was found to have new onset AFib with RVR and a likely UTI.? CT scan of abdomen and pelvis found a marked heterogeneous enlargement the prostate gland with asymmetric nodular thickening of the left seminal vesicle concerning for primary malignancy.? 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 Continue Casodex as per Urology acute hypoxic respiratory failure 2/2 LLL atelactasis reolved Paroxysmal afib with rvr rate control, continue metoprolol and Eliquis Metabolic encephalopathy ( acute delirium in backdrop of chronic dementia) likely natural progression of dementia patient lacks capacity to make most medical decisions and unlikely to be able to live safely independently(psychiatry) awaiting placement(insurance pending) ANTONELLA on CKD II resolved after Mclaughlin placement now on voiding trial, but so far requiring intermittent caths acute on chronic anemia Hb down to 10 from 12 over 1 month. no reported bleeding DMI acceptable control on metformin and lispro correctional scale paroxysmal afib Eliquis, lopressor full code dvt prophylaxis - on eliquis Requires continued hospitalization: pending safe discharge to SNF Time Spent With Patient Time: Total time managing care of this patient today ____ minutes. Quality Stroke Does the patient have a stroke diagnosis?: No VTE Prior VTE?: No VTE Risk Level:: Medical - moderate - high VTE Device Contraindication: Treatment Not Indicated VTE Drug Contraindication: N/A - Med Ordered
[2023-02-10 11:17] LABS: Glucose, Whole Blood 101 mg/dL (60-115)
[2023-02-10 15:30] VITALS: BP 145/62; PULSE 99; RESP 16; TEMP 36.2; O2SAT 98
[2023-02-10 16:04] LABS: Glucose, Whole Blood 186 mg/dL (60-115)
[2023-02-10 19:24] LABS: Glucose, Whole Blood 127 mg/dL (60-115)
[2023-02-10 19:44] VITALS: BP 132/64; PULSE 82; RESP 16; TEMP 36.3; O2SAT 98
[2023-02-10] MEDS: Pravastatin Sodium 40 MG TABLET PO (21:22)
[2023-02-10 23:30] VITALS: BP 121/60; PULSE 88; RESP 16; TEMP 36.6; O2SAT 96
[2023-02-11 07:23] VITALS: BP 138/75; PULSE 82; RESP 18; TEMP 36.2; O2SAT 95
[2023-02-11 07:47] LABS: Glucose, Whole Blood 189 mg/dL (60-115)
--- NOTE | 2023-02-11 08:01 | HO.PM.IMPN ---
Subjective Subjective Date of Service: 02/11/23 Interval History: no complaints Physical Exam Vital Signs: Vital Signs: Last Vital Signs Temp 97.1 F 02/11/23 07:23 Pulse 82 02/11/23 07:23 Resp 18 02/11/23 07:23 BP 138/75 02/11/23 07:23 Pulse Ox 95 02/11/23 07:23 O2 Del Method Room Air 02/11/23 07:23 O2 Flow Rate 2 01/19/23 22:40 Oxygen Flow Rate 3 01/10/23 18:20 BMI result Body Mass Index 24.2 Const: Other: General: AO X 2, no acute distress GI: +BS, NT, no distention Skin: No rash, Mclaughlin in place Neuro:? motor grossly intact Psych: appropriate affect Objective Data Active Medications Acetaminophen (Acetaminophen 325 Mg Tablet) 975 mg PO Q6H [facility] Last Admin: 02/11/23 06:00 Dose: Not Given Documented By: HEIDI Non-Admin Reason: no c/o pain Amlodipine Besylate (Amlodipine Besylate 5 Mg Tablet) 5 mg PO DAILY [facility]; Protocol Last Admin: 02/10/23 07:51 Dose: 5 mg Documented By: EMMY Apixaban (Apixaban 2.5 Mg Tablet) 2.5 mg PO BID [facility] Last Admin: 02/10/23 21:23 Dose: 2.5 mg Documented By: LANE Bicalutamide (Bicalutamide 50 Mg Tablet) 50 mg PO TID [facility] Last Admin: 02/10/23 21:22 Dose: 50 mg Documented By: LANE Docusate Sodium (Docusate Sodium 100 Mg Capsule) 100 mg PO DAILY PRN PRN Reason: Constipation Last Admin: 01/05/23 08:05 Dose: 100 mg Documented By: MIKE Finasteride (Finasteride 5 Mg Tablet) 5 mg PO DAILY [facility] Last Admin: 02/10/23 07:52 Dose: 5 mg Documented By: EMMY Gabapentin (Gabapentin 100 Mg Capsule) 100 mg PO BID [facility] Last Admin: 02/10/23 21:23 Dose: 100 mg Documented By: LANE Glucose (Glucose Gel 15 Gm Gel..Gram.) 15 gm PO Q15M PRN; Protocol PRN Reason: per Hypoglycemia Standing Ord. Dextrose (D10) 250 mls @ 750 mls/hr IV Q15M PRN; Protocol PRN Reason: per Hypoglycemia Standing Ord. Insulin Human Lispro (Insulin Lispro 100 Unit/Ml 3 Ml Vial) 0 unit SUBCUT QIDACHS [facility]; Protocol Last Admin: 02/10/23 21:20 Dose: Not Given Documented By: LANE Non-Admin Reason: No Insulin Coverage Comments: 127 Metformin HCl (Metformin Hcl Er 500 Mg Tab.Er.24h) 2,000 mg PO DAILY [facility] Last Admin: 02/10/23 07:50 Dose: 2,000 mg Documented By: EMMY Metoprolol Tartrate (Metoprolol Tartrate 25 Mg Tablet) 25 mg PO BID [facility]; Protocol Last Admin: 02/10/23 21:22 Dose: 25 mg Documented By: LANE Olanzapine (Olanzapine 10 Mg Vial) 5 mg IM DAILY PRN PRN Reason: agitation Olanzapine (Olanzapine 2.5 Mg Tablet) 2.5 mg PO Q4H PRN PRN Reason: Delirium Last Admin: 02/06/23 03:19 Dose: 2.5 mg Documented By: SHASHANK Olanzapine (Olanzapine 2.5 Mg Tablet) 2.5 mg PO DAILY [facility] Last Admin: 02/10/23 07:51 Dose: 2.5 mg Documented By: EMMY Ondansetron HCl (Ondansetron Hcl 4 Mg/2 Ml Vial) 4 mg IVPUSH Q8H PRN PRN Reason: Nausea and Vomiting Ondansetron HCl (Ondansetron Hcl 4 Mg/2 Ml Vial) 4 mg IVPUSH ONCE PRN PRN Reason: Nausea and Vomiting Oxycodone HCl (Oxycodone Hcl Immed Release 5 Mg Tablet) 5 mg PO Q6H PRN PRN Reason: Pain, Severe (Pain Scale 7-10) Last Admin: 02/06/23 20:46 Dose: 5 mg Documented By: VIANEY Pharmacy Consult (Consult Rx Perform Med Rec) 1 each MISCELLANE ONCE PRN PRN Reason: Consult order Pravastatin Sodium (Pravastatin Sodium 40 Mg Tablet) 40 mg PO BEDTIME [facility] Last Admin: 02/10/23 21:22 Dose: 40 mg Documented By: LANE Sodium Chloride (0.9 % Sodium Chloride Flush 3 Ml Syringe) 3 ml IVFLUSH QSHIFT [facility] Last Admin: 02/11/23 00:27 Dose: Not Given Documented By: HEIDI Non-Admin Reason: No Access Tamsulosin HCl (Tamsulosin Hcl 0.4 Mg Capsule) 0.8 mg PO DAILY [facility] Last Admin: 02/10/23 07:50 Dose: 0.8 mg Documented By: EMMY Labs 02/07/23 07:27 02/07/23 07:27 Labs: Laboratory Results - last 24 hr 02/10/23 02/10/23 02/10/23 11:03 16:00 19:02 POC Glucose 101 186 H 127 H 02/11/23 07:26 POC Glucose 189 H Assessment and Plan (1) Pain due to malignant neoplasm metastatic to bone: Status: Acute Plan 82-year-old male with a PMH significant for recently diagnosed?AFib on Eliquis, agl-kqjifke-eoieuezmo diabetes, and enlarged prostate who presented to the ED with?generalized weakness.? Patient recently presented to the emergency room 5 days prior on 12/26/2022 for evaluation of lower back pain.? Patient was found to have new onset AFib with RVR and a likely UTI.? CT scan of abdomen and pelvis found a marked heterogeneous enlargement the prostate gland with asymmetric nodular thickening of the left seminal vesicle concerning for primary malignancy.? 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 Continue Casodex as per Urology acute hypoxic respiratory failure 2/2 LLL atelactasis reolved Paroxysmal afib with rvr rate control, continue metoprolol and Eliquis Metabolic encephalopathy ( acute delirium in backdrop of chronic dementia) likely natural progression of dementia patient lacks capacity to make most medical decisions and unlikely to be able to live safely independently(psychiatry) awaiting placement(insurance pending) ANTONELLA on CKD II resolved after Mclaughlin placement now on voiding trial, but so far requiring intermittent caths acute on chronic anemia Hb down to 10 from 12 over 1 month. no reported bleeding DMI acceptable control on metformin and lispro correctional scale paroxysmal afib Eliquis, lopressor full code dvt prophylaxis - on eliquis Requires continued hospitalization: pending safe discharge to SNF Time Spent With Patient Time: Total time managing care of this patient today ____ minutes. Quality Stroke Does the patient have a stroke diagnosis?: No VTE Prior VTE?: No VTE Risk Level:: Medical - moderate - high VTE Device Contraindication: Treatment Not Indicated VTE Drug Contraindication: N/A - Med Ordered
[2023-02-11] MEDS: oxyCODONE HCl Immed Release 5 MG TABLET PO (08:38)
[2023-02-11] MEDS: Insulin Lispro 100 UNIT/ML 3 ML VIAL SUBCUT ×3 (08:38→21:01)
[2023-02-11] MEDS: Gabapentin 100 MG CAPSULE PO ×2 (08:40→21:02)
[2023-02-11] MEDS: Metoprolol Tartrate 25 MG TABLET PO ×2 (08:40→21:05)
[2023-02-11] MEDS: amLODIPine Besylate 5 MG TABLET PO (08:40)
[2023-02-11] MEDS: Tamsulosin HCL 0.4 MG CAPSULE 0.8 MG PO (08:40)
[2023-02-11] MEDS: metFORMIN HCl ER 500 MG TAB.ER.24H 2000 MG PO (08:40)
[2023-02-11] MEDS: OLANZapine 2.5 MG TABLET PO (08:41)
[2023-02-11] MEDS: Bicalutamide 50 MG TABLET PO ×3 (08:41→21:02)
[2023-02-11] MEDS: Finasteride 5 MG TABLET PO (08:41)
[2023-02-11] MEDS: Apixaban 2.5 MG TABLET PO ×2 (08:41→21:02)
[2023-02-11 11:27] LABS: Glucose, Whole Blood 184 mg/dL (60-115)
[2023-02-11] MEDS: Acetaminophen 325 MG TABLET 975 MG PO ×2 (12:11→17:30)
--- NOTE | 2023-02-11 14:01 | MHC.CM.PN ---
per chloe pt is ready for dc no accepting facilities
[2023-02-11 15:13] VITALS: BP 134/63; PULSE 78; RESP 16; TEMP 36.2; O2SAT 98
[2023-02-11 16:18] LABS: Glucose, Whole Blood 115 mg/dL (60-115)
[2023-02-11 19:21] VITALS: BP 138/62; PULSE 90; RESP 18; TEMP 36.5; O2SAT 98
[2023-02-11 20:35] LABS: Glucose, Whole Blood 187 mg/dL (60-115)
[2023-02-11] MEDS: Pravastatin Sodium 40 MG TABLET PO (21:02)
[2023-02-11 23:50] VITALS: BP 128/63; PULSE 75; RESP 18; TEMP 36.1; O2SAT 97
[2023-02-12] MEDS: Acetaminophen 325 MG TABLET 975 MG PO ×4 (00:56→16:46)
[2023-02-12 07:07] VITALS: BP 122/68; PULSE 72; RESP 18; TEMP 36.2; O2SAT 97
[2023-02-12 07:43] LABS: Glucose, Whole Blood 128 mg/dL (60-115)
--- NOTE | 2023-02-12 08:27 | HO.PM.IMPN ---
Subjective Subjective Date of Service: 02/12/23 Interval History: no complaints Physical Exam Vital Signs: Vital Signs: Last Vital Signs Temp 97.1 F 02/12/23 07:07 Pulse 72 02/12/23 07:07 Resp 18 02/12/23 07:07 BP 122/68 02/12/23 07:07 Pulse Ox 97 02/12/23 07:07 O2 Del Method Room Air 02/12/23 07:07 O2 Flow Rate 2 01/19/23 22:40 Oxygen Flow Rate 3 01/10/23 18:20 BMI result Body Mass Index 24.2 Const: Other: General: AO X 2, no acute distress GI: +BS, NT, no distention Skin: No rash, Mclaughlin in place Neuro:? motor grossly intact Psych: appropriate affect Objective Data Active Medications Acetaminophen (Acetaminophen 325 Mg Tablet) 975 mg PO Q6H [facility] Last Admin: 02/12/23 06:30 Dose: 975 mg Documented By: JEANNE Amlodipine Besylate (Amlodipine Besylate 5 Mg Tablet) 5 mg PO DAILY [facility]; Protocol Last Admin: 02/11/23 08:40 Dose: 5 mg Documented By: ROMANA Apixaban (Apixaban 2.5 Mg Tablet) 2.5 mg PO BID [facility] Last Admin: 02/11/23 21:02 Dose: 2.5 mg Documented By: KATH Bicalutamide (Bicalutamide 50 Mg Tablet) 50 mg PO TID [facility] Last Admin: 02/11/23 21:02 Dose: 50 mg Documented By: KATH Docusate Sodium (Docusate Sodium 100 Mg Capsule) 100 mg PO DAILY PRN PRN Reason: Constipation Last Admin: 01/05/23 08:05 Dose: 100 mg Documented By: RIOSCJOSESITO Finasteride (Finasteride 5 Mg Tablet) 5 mg PO DAILY [facility] Last Admin: 02/11/23 08:41 Dose: 5 mg Documented By: ROMANA Gabapentin (Gabapentin 100 Mg Capsule) 100 mg PO BID [facility] Last Admin: 02/11/23 21:02 Dose: 100 mg Documented By: KATH Glucose (Glucose Gel 15 Gm Gel..Gram.) 15 gm PO Q15M PRN; Protocol PRN Reason: per Hypoglycemia Standing Ord. Dextrose (D10) 250 mls @ 750 mls/hr IV Q15M PRN; Protocol PRN Reason: per Hypoglycemia Standing Ord. Insulin Human Lispro (Insulin Lispro 100 Unit/Ml 3 Ml Vial) 0 unit SUBCUT QIDACHS [facility]; Protocol Last Admin: 02/12/23 07:45 Dose: Not Given Documented By: FUENTES Non-Admin Reason: No Insulin Coverage Metformin HCl (Metformin Hcl Er 500 Mg Tab.Er.24h) 2,000 mg PO DAILY [facility] Last Admin: 02/11/23 08:40 Dose: 2,000 mg Documented By: ROMANA Metoprolol Tartrate (Metoprolol Tartrate 25 Mg Tablet) 25 mg PO BID [facility]; Protocol Last Admin: 02/11/23 21:05 Dose: 25 mg Documented By: KATH Olanzapine (Olanzapine 10 Mg Vial) 5 mg IM DAILY PRN PRN Reason: agitation Olanzapine (Olanzapine 2.5 Mg Tablet) 2.5 mg PO Q4H PRN PRN Reason: Delirium Last Admin: 02/06/23 03:19 Dose: 2.5 mg Documented By: SHASHANK Olanzapine (Olanzapine 2.5 Mg Tablet) 2.5 mg PO DAILY [facility] Last Admin: 02/11/23 08:41 Dose: 2.5 mg Documented By: ROMANA Ondansetron HCl (Ondansetron Hcl 4 Mg/2 Ml Vial) 4 mg IVPUSH Q8H PRN PRN Reason: Nausea and Vomiting Ondansetron HCl (Ondansetron Hcl 4 Mg/2 Ml Vial) 4 mg IVPUSH ONCE PRN PRN Reason: Nausea and Vomiting Pharmacy Consult (Consult Rx Perform Med Rec) 1 each MISCELLANE ONCE PRN PRN Reason: Consult order Pravastatin Sodium (Pravastatin Sodium 40 Mg Tablet) 40 mg PO BEDTIME [facility] Last Admin: 02/11/23 21:02 Dose: 40 mg Documented By: KATH Sodium Chloride (0.9 % Sodium Chloride Flush 3 Ml Syringe) 3 ml IVFLUSH QSHIFT [facility] Last Admin: 02/12/23 00:11 Dose: Not Given Documented By: JEANNE Non-Admin Reason: No Access Tamsulosin HCl (Tamsulosin Hcl 0.4 Mg Capsule) 0.8 mg PO DAILY [facility] Last Admin: 02/11/23 08:40 Dose: 0.8 mg Documented By: ROMANA Labs 02/07/23 07:27 02/07/23 07:27 Labs: Laboratory Results - last 24 hr 02/11/23 02/11/23 02/11/23 11:23 16:14 20:24 POC Glucose 184 H 115 187 H 02/12/23 07:39 POC Glucose 128 H Assessment and Plan (1) Pain due to malignant neoplasm metastatic to bone: Status: Acute Plan 82-year-old male with a PMH significant for recently diagnosed?AFib on Eliquis, xsp-nktsife-vzkkztxoa diabetes, and enlarged prostate who presented to the ED with?generalized weakness.? Patient recently presented to the emergency room 5 days prior on 12/26/2022 for evaluation of lower back pain.? Patient was found to have new onset AFib with RVR and a likely UTI.? CT scan of abdomen and pelvis found a marked heterogeneous enlargement the prostate gland with asymmetric nodular thickening of the left seminal vesicle concerning for primary malignancy.? 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 Continue Casodex as per Urology acute hypoxic respiratory failure 2/2 LLL atelactasis reolved Paroxysmal afib with rvr rate control, continue metoprolol and Eliquis Metabolic encephalopathy ( acute delirium in backdrop of chronic dementia) likely natural progression of dementia patient lacks capacity to make most medical decisions and unlikely to be able to live safely independently(psychiatry) awaiting placement(insurance pending) ANTONELLA on CKD II resolved after [place] placement now on voiding trial, but so far requiring intermittent caths acute on chronic anemia Hb down to 10 from 12 over 1 month. no reported bleeding DMI acceptable control on metformin and lispro correctional scale paroxysmal afib Eliquis, lopressor full code dvt prophylaxis - on eliquis Requires continued hospitalization: pending safe discharge to SNF Time Spent With Patient Time: Total time managing care of this patient today ____ minutes. Quality Stroke Does the patient have a stroke diagnosis?: No VTE Prior VTE?: No VTE Risk Level:: Medical - moderate - high VTE Device Contraindication: Treatment Not Indicated VTE Drug Contraindication: N/A - Med Ordered
[2023-02-12 09:12] LABS: Creatinine Clr Calc Pharmacy 46.1; Estimated Glomerular Filt Rate > 60
[2023-02-12] MEDS: metFORMIN HCl ER 500 MG TAB.ER.24H 2000 MG PO (09:24)
[2023-02-12] MEDS: Bicalutamide 50 MG TABLET PO ×3 (09:24→20:24)
[2023-02-12] MEDS: Finasteride 5 MG TABLET PO (09:24)
[2023-02-12] MEDS: Apixaban 2.5 MG TABLET PO ×2 (09:24→20:24)
[2023-02-12] MEDS: amLODIPine Besylate 5 MG TABLET PO (09:24)
[2023-02-12] MEDS: Metoprolol Tartrate 25 MG TABLET PO ×2 (09:25→20:24)
[2023-02-12] MEDS: Gabapentin 100 MG CAPSULE PO ×2 (09:25→20:24)
[2023-02-12] MEDS: Tamsulosin HCL 0.4 MG CAPSULE 0.8 MG PO (09:25)
[2023-02-12] MEDS: OLANZapine 2.5 MG TABLET PO (09:25)
[2023-02-12 11:53] LABS: Glucose, Whole Blood 198 mg/dL (60-115)
[2023-02-12] MEDS: Insulin Lispro 100 UNIT/ML 3 ML VIAL SUBCUT (12:11)
[2023-02-12 15:05] VITALS: BP 118/59; PULSE 72; RESP 20; TEMP 36.1; O2SAT 98
[2023-02-12 16:20] LABS: Glucose, Whole Blood 144 mg/dL (60-115)
[2023-02-12 19:47] VITALS: BP 124/64; PULSE 87; RESP 18; TEMP 36.1; O2SAT 99
[2023-02-12] MEDS: Pravastatin Sodium 40 MG TABLET PO (20:24)
[2023-02-12 20:31] LABS: Glucose, Whole Blood 150 mg/dL (60-115)
[2023-02-12 23:34] VITALS: BP 115/56; PULSE 76; RESP 18; TEMP 36.3; O2SAT 97
[2023-02-13] MEDS: Acetaminophen 325 MG TABLET 975 MG PO ×3 (04:51→17:43)
[2023-02-13 07:19] VITALS: BP 121/66; PULSE 80; RESP 20; TEMP 36.2; O2SAT 98
[2023-02-13 07:25] LABS: Glucose, Whole Blood 171 mg/dL (60-115)
[2023-02-13] MEDS: amLODIPine Besylate 5 MG TABLET PO (08:03)
[2023-02-13] MEDS: Insulin Lispro 100 UNIT/ML 3 ML VIAL SUBCUT ×3 (08:03→20:55)
[2023-02-13] MEDS: Gabapentin 100 MG CAPSULE PO ×2 (08:03→20:56)
[2023-02-13] MEDS: metFORMIN HCl ER 500 MG TAB.ER.24H 2000 MG PO (08:03)
[2023-02-13] MEDS: Bicalutamide 50 MG TABLET PO ×3 (08:03→20:57)
[2023-02-13] MEDS: Finasteride 5 MG TABLET PO (08:03)
[2023-02-13] MEDS: Tamsulosin HCL 0.4 MG CAPSULE 0.8 MG PO (08:04)
[2023-02-13] MEDS: OLANZapine 2.5 MG TABLET PO (08:04)
[2023-02-13] MEDS: Apixaban 2.5 MG TABLET PO ×2 (08:04→20:56)
[2023-02-13] MEDS: Metoprolol Tartrate 25 MG TABLET PO ×2 (08:04→20:56)
--- NOTE | 2023-02-13 08:38 | P.PNIM_ITS ---
Subjective Subjective Date of Service: 02/13/23 Interval History: no complaints Review of Systems Unable to obtain. Constitutional Constitutional: Reports as per HPI, Denies chills and Denies fever(s) Cardiovascular Cardiovascular: Reports no additional cardiovascular complaints and Denies syncope Respiratory Respiratory: Reports no additional respiratory complaints and Denies cough Gastrointestinal Gastrointestinal: Reports no additional gastrointestinal complaints, Denies abdominal pain and Denies heartburn Genitourinary Genitourinary: Reports as per HPI and Denies change in libido Neurologic Neurologic: Denies syncope Psychiatric Psychiatric: Denies change in libido Endocrine Endocrine: Denies change in libido Physical Exam Vital Signs: Vital Signs: Last Vital Signs Temp 97.2 F 02/13/23 07:19 Pulse 80 02/13/23 07:19 Resp 20 02/13/23 07:19 BP 121/66 02/13/23 07:19 Pulse Ox 98 02/13/23 07:19 O2 Del Method Room Air 02/13/23 07:19 O2 Flow Rate 2 01/19/23 22:40 Oxygen Flow Rate 3 01/10/23 18:20 BMI result Body Mass Index 24.2 Const: Other: General: AO X 2, no acute distress GI: +BS, NT, no distention Skin: No rash, Mclaughlin in place Neuro:? motor grossly intact Psych: appropriate affect General: cooperative, healthy appearing, comfortable and no acute distress Orientation/consciousness: patient oriented x3 Limitations: No language barrier HEENT: Face and sinus: Yes normal facial exam Mouth: moist mucous membranes Neck: Neck: Yes normal visual inspection, Yes full ROM and Yes trachea midline Chest: Chest palpation & inspection: normal inspection of the chest Resp: Other: clear to auscultation bilaterally no rales rhonchi or wheezes Effort & Inspection: normal respiratory effort, able to speak in complete sentences and no respiratory distress Cardio: Other: no S4; positive S1-S2; no S3 murmurs rubs or gallops GI: Other: soft nontender nondistended normoactive bowel sounds x4 quadrants Inspection: Yes normal to inspection Back/Spine/Pelvis: Cervical Spine: normal cervical lordosis Thoracic/Lumbar Spine: thoracic and lumbar spine normal to inspection Skin: General skin exam: no rashes or lesions noted Neuro: Other: unable to do focused exam. Moves all extremities with equal power. . . Cranial nerves appear intact General: patient oriented x3, gait normal, tone normal and moves all extremities Extrem: Other: no edema bilaterally General: Yes normal to inspection and Yes capillary refill normal Objective Data Active Medications Acetaminophen (Acetaminophen 325 Mg Tablet) 975 mg PO Q6H [facility] Last Admin: 02/13/23 04:51 Dose: 975 mg Documented By: SHASHANK Amlodipine Besylate (Amlodipine Besylate 5 Mg Tablet) 5 mg PO DAILY [facility]; Protocol Last Admin: 02/13/23 08:03 Dose: 5 mg Documented By: CEZAR Apixaban (Apixaban 2.5 Mg Tablet) 2.5 mg PO BID [facility] Last Admin: 02/13/23 08:04 Dose: 2.5 mg Documented By: CEZAR Bicalutamide (Bicalutamide 50 Mg Tablet) 50 mg PO TID [facility] Last Admin: 02/13/23 08:03 Dose: 50 mg Documented By: CEZAR Docusate Sodium (Docusate Sodium 100 Mg Capsule) 100 mg PO DAILY PRN PRN Reason: Constipation Last Admin: 01/05/23 08:05 Dose: 100 mg Documented By: MIKE Finasteride (Finasteride 5 Mg Tablet) 5 mg PO DAILY [facility] Last Admin: 02/13/23 08:03 Dose: 5 mg Documented By: CEZAR Gabapentin (Gabapentin 100 Mg Capsule) 100 mg PO BID [facility] Last Admin: 02/13/23 08:03 Dose: 100 mg Documented By: CEZAR Glucose (Glucose Gel 15 Gm Gel..Gram.) 15 gm PO Q15M PRN; Protocol PRN Reason: per Hypoglycemia Standing Ord. Dextrose (D10) 250 mls @ 750 mls/hr IV Q15M PRN; Protocol PRN Reason: per Hypoglycemia Standing Ord. Insulin Human Lispro (Insulin Lispro 100 Unit/Ml 3 Ml Vial) 0 unit SUBCUT QIDACHS [facility]; Protocol Last Admin: 02/13/23 08:03 Dose: 2 unit Documented By: CEZAR Metformin HCl (Metformin Hcl Er 500 Mg Tab.Er.24h) 2,000 mg PO DAILY [facility] Last Admin: 02/13/23 08:03 Dose: 2,000 mg Documented By: CEZAR Metoprolol Tartrate (Metoprolol Tartrate 25 Mg Tablet) 25 mg PO BID [facility]; Protocol Last Admin: 02/13/23 08:04 Dose: 25 mg Documented By: CEZAR Olanzapine (Olanzapine 10 Mg Vial) 5 mg IM DAILY PRN PRN Reason: agitation Olanzapine (Olanzapine 2.5 Mg Tablet) 2.5 mg PO Q4H PRN PRN Reason: Delirium Last Admin: 02/06/23 03:19 Dose: 2.5 mg Documented By: SHASHANK Olanzapine (Olanzapine 2.5 Mg Tablet) 2.5 mg PO DAILY [facility] Last Admin: 02/13/23 08:04 Dose: 2.5 mg Documented By: CEZAR Ondansetron HCl (Ondansetron Hcl 4 Mg/2 Ml Vial) 4 mg IVPUSH Q8H PRN PRN Reason: Nausea and Vomiting Ondansetron HCl (Ondansetron Hcl 4 Mg/2 Ml Vial) 4 mg IVPUSH ONCE PRN PRN Reason: Nausea and Vomiting Pharmacy Consult (Consult Rx Perform Med Rec) 1 each MISCELLANE ONCE PRN PRN Reason: Consult order Pravastatin Sodium (Pravastatin Sodium 40 Mg Tablet) 40 mg PO BEDTIME [facility] Last Admin: 02/12/23 20:24 Dose: 40 mg Documented By: SHASHANK Sodium Chloride (0.9 % Sodium Chloride Flush 3 Ml Syringe) 3 ml IVFLUSH QSHIFT [facility] Last Admin: 02/13/23 08:03 Dose: Not Given Documented By: CEZAR Non-Admin Reason: No Access Tamsulosin HCl (Tamsulosin Hcl 0.4 Mg Capsule) 0.8 mg PO DAILY [facility] Last Admin: 02/13/23 08:04 Dose: 0.8 mg Documented By: CEZAR Labs 02/07/23 07:27 02/12/23 08:40 Labs: Laboratory Results - last 24 hr 02/12/23 02/12/23 02/12/23 08:40 11:49 16:16 Estim Creat Clear Calc 46.1 Estimated GFR > 60 POC Glucose 198 H 144 H 02/12/23 02/13/23 20:26 07:22 Estim Creat Clear Calc Estimated GFR POC Glucose 150 H 171 H Assessment and Plan (1) Diabetes type 2, controlled: Status: Acute Plan 82-year-old male with a PMH significant for recently diagnosed?AFib on Eliquis, [id number] diabetes, and enlarged prostate who presented to the ED with?generalized weakness.? Patient recently presented to the emergency room 5 days prior on 12/26/2022 for evaluation of lower back pain.? Patient was found to have new onset AFib with RVR and a likely UTI.? CT scan of abdomen and pelvis found a marked heterogeneous enlargement the prostate gland with asymmetric nodular thickening of the left seminal vesicle concerning for primary malignancy.? 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 Continue Casodex as per Urology acute hypoxic respiratory failure 2/2 LLL atelactasis reolved Paroxysmal afib with rvr rate control, continue metoprolol and Eliquis Metabolic encephalopathy ( acute delirium in backdrop of chronic dementia) likely natural progression of dementia patient lacks capacity to make most medical decisions and unlikely to be able to live safely independently(psychiatry) awaiting placement(insurance pending) ANTONELLA on CKD II resolved after Mclaughlin placement now on voiding trial, but so far requiring intermittent caths acute on chronic anemia Hb down to 10 from 12 over 1 month. no reported bleeding DMI acceptable control on metformin and lispro correctional scale paroxysmal afib Eliquis, lopressor full code dvt prophylaxis - on eliquis Requires continued hospitalization: pending safe discharge to SNF Time Spent With Patient Time: Total time managing care of this patient today ____ minutes. Quality Stroke Does the patient have a stroke diagnosis?: No VTE Prior VTE?: No VTE Risk Level:: Medical - moderate - high VTE Device Contraindication: Treatment Not Indicated VTE Drug Contraindication: N/A - Med Ordered
[2023-02-13 11:19] LABS: Glucose, Whole Blood 273 mg/dL (60-115)
[2023-02-13 15:55] VITALS: BP 106/56; PULSE 90; RESP 20; TEMP 36.4; O2SAT 98
[2023-02-13 16:00] LABS: Glucose, Whole Blood 84 mg/dL (60-115)
[2023-02-13 19:15] VITALS: BP 129/60; PULSE 81; RESP 16; TEMP 36.4; O2SAT 97
[2023-02-13 20:27] LABS: Glucose, Whole Blood 163 mg/dL (60-115)
[2023-02-13] MEDS: Pravastatin Sodium 40 MG TABLET PO (20:56)
[2023-02-14 03:14] VITALS: BP 140/71; PULSE 82; RESP 18; TEMP 36.3; O2SAT 97
[2023-02-14] MEDS: Acetaminophen 325 MG TABLET 975 MG PO ×4 (04:56→23:07)
[2023-02-14 07:20] VITALS: BP 142/70; PULSE 82; RESP 18; TEMP 36.9; O2SAT 98
[2023-02-14 07:24] LABS: Glucose, Whole Blood 256 mg/dL (60-115)
[2023-02-14] MEDS: Insulin Lispro 100 UNIT/ML 3 ML VIAL SUBCUT ×3 (07:44→21:42)
[2023-02-14] MEDS: amLODIPine Besylate 5 MG TABLET PO (07:45)
[2023-02-14] MEDS: metFORMIN HCl ER 500 MG TAB.ER.24H 2000 MG PO (07:45)
[2023-02-14] MEDS: Finasteride 5 MG TABLET PO (07:45)
[2023-02-14] MEDS: Metoprolol Tartrate 25 MG TABLET PO ×2 (07:45→21:44)
[2023-02-14] MEDS: OLANZapine 2.5 MG TABLET PO (07:45)
[2023-02-14] MEDS: Apixaban 2.5 MG TABLET PO ×2 (07:45→21:43)
[2023-02-14] MEDS: Tamsulosin HCL 0.4 MG CAPSULE 0.8 MG PO (07:45)
[2023-02-14] MEDS: Bicalutamide 50 MG TABLET PO ×3 (07:45→21:44)
[2023-02-14] MEDS: Gabapentin 100 MG CAPSULE PO ×2 (07:45→21:43)
--- NOTE | 2023-02-14 08:10 | P.PNIM_ITS ---
Subjective Subjective Date of Service: 02/14/23 Interval History: no complaints Physical Exam Vital Signs: Vital Signs: Last Vital Signs Temp 98.5 F 02/14/23 07:20 Pulse 82 02/14/23 07:20 Resp 18 02/14/23 07:20 BP 142/70 H 02/14/23 07:20 Pulse Ox 98 02/14/23 07:20 O2 Del Method Room Air 02/14/23 07:20 O2 Flow Rate 2 01/19/23 22:40 Oxygen Flow Rate 3 01/10/23 18:20 BMI result Body Mass Index 24.2 Const: Other: General: AO X 2, no acute distress GI: +BS, NT, no distention Skin: No rash, Mclaughlin in place Neuro:? motor grossly intact Psych: appropriate affect General: cooperative, healthy appearing, comfortable and no acute distress Orientation/consciousness: patient oriented x3 Limitations: No language barrier HEENT: Face and sinus: Yes normal facial exam Mouth: moist mucous membranes Neck: Neck: Yes normal visual inspection, Yes full ROM and Yes trachea midline Chest: Chest palpation & inspection: normal inspection of the chest Resp: Other: clear to auscultation bilaterally no rales rhonchi or wheezes Effort & Inspection: normal respiratory effort, able to speak in complete sentences and no respiratory distress Cardio: Other: no S4; positive S1-S2; no S3 murmurs rubs or gallops GI: Other: soft nontender nondistended normoactive bowel sounds x4 quadrants Inspection: Yes normal to inspection Back/Spine/Pelvis: Cervical Spine: normal cervical lordosis Thoracic/Lumbar Spine: thoracic and lumbar spine normal to inspection Skin: General skin exam: no rashes or lesions noted Neuro: Other: unable to do focused exam. Moves all extremities with equal power. . . Cranial nerves appear intact General: patient oriented x3, gait normal, tone normal and moves all extremities Extrem: Other: no edema bilaterally General: Yes normal to inspection and Yes capillary refill normal Objective Data Active Medications Acetaminophen (Acetaminophen 325 Mg Tablet) 975 mg PO Q6H [facility] Last Admin: 02/14/23 04:56 Dose: 975 mg Documented By: LANE Amlodipine Besylate (Amlodipine Besylate 5 Mg Tablet) 5 mg PO DAILY [facility]; Protocol Last Admin: 02/14/23 07:45 Dose: 5 mg Documented By: REZA Apixaban (Apixaban 2.5 Mg Tablet) 2.5 mg PO BID [facility] Last Admin: 02/14/23 07:45 Dose: 2.5 mg Documented By: REZA Bicalutamide (Bicalutamide 50 Mg Tablet) 50 mg PO TID [facility] Last Admin: 02/14/23 07:45 Dose: 50 mg Documented By: REZA Docusate Sodium (Docusate Sodium 100 Mg Capsule) 100 mg PO DAILY PRN PRN Reason: Constipation Last Admin: 01/05/23 08:05 Dose: 100 mg Documented By: RIOSCEL Finasteride (Finasteride 5 Mg Tablet) 5 mg PO DAILY [facility] Last Admin: 02/14/23 07:45 Dose: 5 mg Documented By: REZA Gabapentin (Gabapentin 100 Mg Capsule) 100 mg PO BID [facility] Last Admin: 02/14/23 07:45 Dose: 100 mg Documented By: REZA Glucose (Glucose Gel 15 Gm Gel..Gram.) 15 gm PO Q15M PRN; Protocol PRN Reason: per Hypoglycemia Standing Ord. Dextrose (D10) 250 mls @ 750 mls/hr IV Q15M PRN; Protocol PRN Reason: per Hypoglycemia Standing Ord. Insulin Human Lispro (Insulin Lispro 100 Unit/Ml 3 Ml Vial) 0 unit SUBCUT QIDACHS [facility]; Protocol Last Admin: 02/14/23 07:44 Dose: 6 unit Documented By: REZA Metformin HCl (Metformin Hcl Er 500 Mg Tab.Er.24h) 2,000 mg PO DAILY [facility] Last Admin: 02/14/23 07:45 Dose: 2,000 mg Documented By: REZA Metoprolol Tartrate (Metoprolol Tartrate 25 Mg Tablet) 25 mg PO BID [facility]; Protocol Last Admin: 02/14/23 07:45 Dose: 25 mg Documented By: REZA Olanzapine (Olanzapine 10 Mg Vial) 5 mg IM DAILY PRN PRN Reason: agitation Olanzapine (Olanzapine 2.5 Mg Tablet) 2.5 mg PO Q4H PRN PRN Reason: Delirium Last Admin: 02/06/23 03:19 Dose: 2.5 mg Documented By: OZORALB Olanzapine (Olanzapine 2.5 Mg Tablet) 2.5 mg PO DAILY [facility] Last Admin: 02/14/23 07:45 Dose: 2.5 mg Documented By: REZA Ondansetron HCl (Ondansetron Hcl 4 Mg/2 Ml Vial) 4 mg IVPUSH Q8H PRN PRN Reason: Nausea and Vomiting Ondansetron HCl (Ondansetron Hcl 4 Mg/2 Ml Vial) 4 mg IVPUSH ONCE PRN PRN Reason: Nausea and Vomiting Pharmacy Consult (Consult Rx Perform Med Rec) 1 each MISCELLANE ONCE PRN PRN Reason: Consult order Pravastatin Sodium (Pravastatin Sodium 40 Mg Tablet) 40 mg PO BEDTIME [facility] Last Admin: 02/13/23 20:56 Dose: 40 mg Documented By: LANE Sodium Chloride (0.9 % Sodium Chloride Flush 3 Ml Syringe) 3 ml IVFLUSH QSHIFT [facility] Last Admin: 02/14/23 07:32 Dose: Not Given Documented By: REZA Non-Admin Reason: No Access Tamsulosin HCl (Tamsulosin Hcl 0.4 Mg Capsule) 0.8 mg PO DAILY [facility] Last Admin: 02/14/23 07:45 Dose: 0.8 mg Documented By: REZA Labs 02/07/23 07:27 02/12/23 08:40 Labs: Laboratory Results - last 24 hr 02/13/23 02/13/23 02/13/23 11:13 15:57 20:13 POC Glucose 273 H 84 163 H 02/14/23 07:19 POC Glucose 256 H Assessment and Plan (1) Diabetes type 2, controlled: Status: Acute Plan 82-year-old male with a PMH significant for recently diagnosed?AFib on Eliquis, [id number] diabetes, and enlarged prostate who presented to the ED with?generalized weakness.? Patient recently presented to the emergency room 5 days prior on 12/26/2022 for evaluation of lower back pain.? Patient was found to have new onset AFib with RVR and a likely UTI.? CT scan of abdomen and pelvis found a marked heterogeneous enlargement the prostate gland with asymmetric nodular thickening of the left seminal vesicle concerning for primary malignancy.? 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 Continue Casodex as per Urology acute hypoxic respiratory failure 2/2 LLL atelactasis reolved Paroxysmal afib with rvr rate control, continue metoprolol and Eliquis Metabolic encephalopathy ( acute delirium in backdrop of chronic dementia) likely natural progression of dementia patient lacks capacity to make most medical decisions and unlikely to be able to live safely independently(psychiatry) awaiting placement(insurance pending) ANTONELLA on CKD II resolved after Mclaughlin placement now on voiding trial, but so far requiring intermittent caths acute on chronic anemia Hb down to 10 from 12 over 1 month. no reported bleeding DMI acceptable control on metformin and lispro correctional scale paroxysmal afib Eliquis, lopressor full code dvt prophylaxis - on eliquis Requires continued hospitalization: pending safe discharge to SNF Time Spent With Patient Time: Total time managing care of this patient today ____ minutes. Quality Stroke Does the patient have a stroke diagnosis?: No VTE Prior VTE?: No VTE Risk Level:: Medical - moderate - high VTE Device Contraindication: Treatment Not Indicated VTE Drug Contraindication: N/A - Med Ordered
[2023-02-14 11:23] LABS: Glucose, Whole Blood 98 mg/dL (60-115)
--- NOTE | 2023-02-14 12:54 | MHC.CM.PN ---
per rounds pt remains ready for dc unable to locate a bed at tbis time
[2023-02-14 14:59] VITALS: BP 127/62; PULSE 86; RESP 16; TEMP 36.6; O2SAT 97
[2023-02-14 16:28] LABS: Glucose, Whole Blood 187 mg/dL (60-115)
[2023-02-14 19:14] VITALS: BP 122/60; PULSE 98; RESP 18; TEMP 36.6; O2SAT 97
[2023-02-14 20:25] LABS: Glucose, Whole Blood 219 mg/dL (60-115)
[2023-02-14] MEDS: Pravastatin Sodium 40 MG TABLET PO (21:43)
[2023-02-14] MEDS: 0.9 % Sodium Chloride Flush 3 ML SYRINGE IVFLUSH (21:44)
[2023-02-15] MEDS: OLANZapine 2.5 MG TABLET PO ×2 (03:35→07:47)
[2023-02-15 03:39] VITALS: BP 134/78; PULSE 90; RESP 18; TEMP 36.6; O2SAT 98
--- NOTE | 2023-02-15 05:08 | PC.NURSE ---
Pt was impulsive and restless most of the night and unconsolable, prn Zyprexa 2.5 mg po was given, sleepy and calm after.
[2023-02-15] MEDS: Acetaminophen 325 MG TABLET 975 MG PO ×3 (05:16→17:15)
[2023-02-15 07:13] VITALS: BP 135/64; PULSE 76; RESP 16; TEMP 36.7; O2SAT 97
[2023-02-15 07:31] LABS: Glucose, Whole Blood 164 mg/dL (60-115)
[2023-02-15] MEDS: Insulin Lispro 100 UNIT/ML 3 ML VIAL SUBCUT ×2 (07:45→11:36)
[2023-02-15] MEDS: Apixaban 2.5 MG TABLET PO ×2 (07:46→21:43)
[2023-02-15] MEDS: amLODIPine Besylate 5 MG TABLET PO (07:46)
[2023-02-15] MEDS: Metoprolol Tartrate 25 MG TABLET PO ×2 (07:46→21:43)
[2023-02-15] MEDS: Tamsulosin HCL 0.4 MG CAPSULE 0.8 MG PO (07:46)
[2023-02-15] MEDS: metFORMIN HCl ER 500 MG TAB.ER.24H 2000 MG PO (07:46)
[2023-02-15] MEDS: Bicalutamide 50 MG TABLET PO ×3 (07:47→21:44)
[2023-02-15] MEDS: Gabapentin 100 MG CAPSULE PO ×2 (07:47→21:43)
[2023-02-15] MEDS: Finasteride 5 MG TABLET PO (07:47)
--- NOTE | 2023-02-15 08:26 | P.PNIM_ITS ---
Subjective Subjective Date of Service: 02/15/23 Interval History: no new complaints Physical Exam Vital Signs: Vital Signs: Last Vital Signs Temp 98.1 F 02/15/23 07:13 Pulse 76 02/15/23 07:13 Resp 16 02/15/23 07:13 BP 135/64 02/15/23 07:13 Pulse Ox 97 02/15/23 07:13 O2 Del Method Room Air 02/15/23 07:13 O2 Flow Rate 2 01/19/23 22:40 Oxygen Flow Rate 3 01/10/23 18:20 BMI result Body Mass Index 24.2 Const: Other: General: AO X 2, no acute distress GI: +BS, NT, no distention Skin: No rash, Oates in place Neuro:? motor grossly intact Psych: appropriate affect General: cooperative, healthy appearing, comfortable and no acute distress Orientation/consciousness: patient oriented x3 Limitations: No language barrier HEENT: Face and sinus: Yes normal facial exam Mouth: moist mucous membranes Neck: Neck: Yes normal visual inspection, Yes full ROM and Yes trachea midline Chest: Chest palpation & inspection: normal inspection of the chest Resp: Other: clear to auscultation bilaterally no rales rhonchi or wheezes Effort & Inspection: normal respiratory effort, able to speak in complete sentences and no respiratory distress Cardio: Other: no S4; positive S1-S2; no S3 murmurs rubs or gallops GI: Other: soft nontender nondistended normoactive bowel sounds x4 quadrants Inspection: Yes normal to inspection Back/Spine/Pelvis: Cervical Spine: normal cervical lordosis Thoracic/Lumbar Spine: thoracic and lumbar spine normal to inspection Skin: General skin exam: no rashes or lesions noted Neuro: Other: unable to do focused exam. Moves all extremities with equal power. . . Cranial nerves appear intact General: patient oriented x3, gait normal, tone normal and moves all extremities Extrem: Other: no edema bilaterally General: Yes normal to inspection and Yes capillary refill normal Objective Data Active Medications Acetaminophen (Acetaminophen 325 Mg Tablet) [address] [facility] Last Admin: 02/15/23 05:16 Dose: 975 mg Documented By: LANE Amlodipine Besylate (Amlodipine Besylate 5 Mg Tablet) [address] [facility]; Protocol Last Admin: 02/15/23 07:46 Dose: 5 mg Documented By: REZA Apixaban (Apixaban 2.5 Mg Tablet) 2.[address] [facility] Last Admin: 02/15/23 07:46 Dose: 2.5 mg Documented By: REZA Bicalutamide (Bicalutamide 50 Mg Tablet) [address] [facility] Last Admin: 02/15/23 07:47 Dose: 50 mg Documented By: REZA Docusate Sodium (Docusate Sodium 100 Mg Capsule) 100 mg PO DAILY PRN PRN Reason: Constipation Last Admin: 01/05/23 08:05 Dose: 100 mg Documented By: RIOSCEL Finasteride (Finasteride 5 Mg Tablet) [address] [facility] Last Admin: 02/15/23 07:47 Dose: 5 mg Documented By: REZA Gabapentin (Gabapentin 100 Mg Capsule) [address] [facility] Last Admin: 02/15/23 07:47 Dose: 100 mg Documented By: REZA Glucose (Glucose Gel 15 Gm Gel..Gram.) 15 gm PO Q15M PRN; Protocol PRN Reason: per Hypoglycemia Standing Ord. Dextrose (D10) 250 mls @ 750 mls/hr IV Q15M PRN; Protocol PRN Reason: per Hypoglycemia Standing Ord. Insulin Human Lispro (Insulin Lispro 100 Unit/Ml 3 Ml Vial) [address] [facility]; Protocol Last Admin: 02/15/23 07:45 Dose: 2 unit Documented By: REZA Metformin HCl (Metformin Hcl Er 500 Mg Tab.Er.24h) 2,[address] [facility] Last Admin: 02/15/23 07:46 Dose: 2,000 mg Documented By: REZA Metoprolol Tartrate (Metoprolol Tartrate 25 Mg Tablet) [address] [facility]; Protocol Last Admin: 02/15/23 07:46 Dose: 25 mg Documented By: REZA Olanzapine (Olanzapine 10 Mg Vial) 5 mg IM DAILY PRN PRN Reason: agitation Olanzapine (Olanzapine 2.5 Mg Tablet) 2.5 mg PO Q4H PRN PRN Reason: Delirium Last Admin: 02/15/23 03:35 Dose: 2.5 mg Documented By: CASTILM Olanzapine (Olanzapine 2.5 Mg Tablet) 2.[address] [facility] Last Admin: 02/15/23 07:47 Dose: 2.5 mg Documented By: REZA Ondansetron HCl (Ondansetron Hcl 4 Mg/2 Ml Vial) 4 mg IVPUSH Q8H PRN PRN Reason: Nausea and Vomiting Ondansetron HCl (Ondansetron Hcl 4 Mg/2 Ml Vial) 4 mg IVPUSH ONCE PRN PRN Reason: Nausea and Vomiting Pharmacy Consult (Consult Rx Perform Med Rec) 1 each MISCELLANE ONCE PRN PRN Reason: Consult order Pravastatin Sodium (Pravastatin Sodium 40 Mg Tablet) [address] [facility] Last Admin: 02/14/23 21:43 Dose: 40 mg Documented By: LANE Sodium Chloride (0.9 % Sodium Chloride Flush 3 Ml Syringe) [address] [facility] Last Admin: 02/15/23 07:03 Dose: Not Given Documented By: REZA Non-Admin Reason: No Access Tamsulosin HCl (Tamsulosin Hcl 0.4 Mg Capsule) 0.[address] [facility] Last Admin: 02/15/23 07:46 Dose: 0.8 mg Documented By: REZA Labs 02/07/23 07:27 02/12/23 08:40 Labs: Laboratory Results - last 24 hr 02/14/23 02/14/23 02/14/23 11:19 16:25 20:18 POC Glucose 98 187 H 219 H 02/15/23 07:16 POC Glucose 164 H Assessment and Plan (1) Diabetes type 2, controlled: Status: Acute Plan 82-year-old male with a PMH significant for recently diagnosed?AFib on Eliquis, sgo-bhryxqx-[id number] diabetes, and enlarged prostate who presented to the ED with?generalized weakness.? Patient recently presented to the emergency room 5 days prior on 12/26/2022 for evaluation of lower back pain.? Patient was found to have new onset AFib with RVR and a likely UTI.? CT scan of abdomen and pelvis found a marked heterogeneous enlargement the prostate gland with asymmetric nodular thickening of the left seminal vesicle concerning for primary malignancy.? 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 Continue Casodex as per Urology acute hypoxic respiratory failure 2/2 LLL atelactasis reolved Paroxysmal afib with rvr rate control, continue metoprolol and Eliquis Metabolic encephalopathy ( acute delirium in backdrop of chronic dementia) likely natural progression of dementia patient lacks capacity to make most medical decisions and unlikely to be able to live safely independently(psychiatry) awaiting placement(insurance pending) ANTONELLA on CKD II resolved after Oates placement failed voiding trial,oates replaced acute on chronic anemia Hb down to 10 from 12 over 1 month. no reported bleeding DMI acceptable control on metformin and lispro correctional scale paroxysmal afib Eliquis, lopressor full code dvt prophylaxis - on eliquis Requires continued hospitalization: pending safe discharge to SNF (awaiting bed) Time Spent With Patient Time: Total time managing care of this patient today ____ minutes. Quality Stroke Does the patient have a stroke diagnosis?: No VTE Prior VTE?: No VTE Risk Level:: Medical - moderate - high VTE Device Contraindication: Treatment Not Indicated VTE Drug Contraindication: N/A - Med Ordered
--- NOTE | 2023-02-15 11:21 | W.MHC.ACPN ---
Advanced Care Planning Note Advanced Care Planning Note Discussed with: family member(s) Time spent (in minutes): 16 Narrative: d/w brother in hallway regarding diagnoses of dementia and prostate cancer, discussed goals of care, decision made to change code status to DNR/DNI Problems Discussed (1) Diabetes type 2, controlled:
[2023-02-15 11:33] LABS: Glucose, Whole Blood 182 mg/dL (60-115)
[2023-02-15 16:11] VITALS: BP 119/56; PULSE 84; RESP 16; TEMP 36.6; O2SAT 97
[2023-02-15 16:30] LABS: Glucose, Whole Blood 99 mg/dL (60-115)
[2023-02-15 19:18] VITALS: BP 129/61; PULSE 80; RESP 16; TEMP 36.1; O2SAT 96
[2023-02-15 20:22] LABS: Glucose, Whole Blood 145 mg/dL (60-115)
[2023-02-15] MEDS: Pravastatin Sodium 40 MG TABLET PO (21:43)
[2023-02-16 03:40] VITALS: BP 142/68; PULSE 69; RESP 16; TEMP 36; O2SAT 96
[2023-02-16] MEDS: Acetaminophen 325 MG TABLET 975 MG PO ×3 (05:51→23:45)
[2023-02-16 06:33] LABS: Hematocrit 31.6 % (42.0-52.0); Hemoglobin 10.7 g/dl (14.0-18.0); Mean Corpuscular HGB Conc 33.9 g/dl (31.0-36.0); Mean Corpuscular Hemoglobin 30.4 pg (27.0-33.0); Mean Corpuscular Volume 89.8 fL (80.0-98.0); Mean Platelet Volume 9.4 fL (9.4-12.4); Platelet Count 416 X10*3/uL (160-400); Red Blood Count 3.52 X10*6/uL (4.60-5.80); Red Cell Distribution Width 13.7 % (11.0-16.0); White Blood Count 12.5 X10*3/uL (4.8-10.8)
[2023-02-16 06:46] LABS: Anion Gap 13 (12-20); Blood Urea Nitrogen 34 mg/dL (9-16); Calcium 9.5 mg/dL (8.4-10.2); Carbon Dioxide 24 mmol/L (22-29); Chloride 105 mmol/L (96-108); Creatinine Clr Calc Pharmacy 50.2; Estimated Glomerular Filt Rate > 60; Glucose Fasting 134 mg/dL (60-99); Potassium 4.2 mmol/L (3.3-5.1); Sodium 138 mmol/L (135-145)
[2023-02-16 07:23] VITALS: BP 134/67; PULSE 87; RESP 20; TEMP 36.8; O2SAT 97
[2023-02-16 07:46] LABS: Glucose, Whole Blood 133 mg/dL (60-115)
[2023-02-16] MEDS: Gabapentin 100 MG CAPSULE PO ×2 (09:02→21:09)
[2023-02-16] MEDS: Finasteride 5 MG TABLET PO (09:02)
[2023-02-16] MEDS: Tamsulosin HCL 0.4 MG CAPSULE 0.8 MG PO (09:02)
[2023-02-16] MEDS: OLANZapine 2.5 MG TABLET PO (09:02)
[2023-02-16] MEDS: metFORMIN HCl ER 500 MG TAB.ER.24H 2000 MG PO (09:02)
[2023-02-16] MEDS: Bicalutamide 50 MG TABLET PO ×3 (09:02→21:09)
[2023-02-16] MEDS: Apixaban 2.5 MG TABLET PO ×2 (09:05→21:09)
[2023-02-16] MEDS: amLODIPine Besylate 5 MG TABLET PO (09:05)
[2023-02-16] MEDS: Metoprolol Tartrate 25 MG TABLET PO ×2 (09:05→21:09)
[2023-02-16 11:17] LABS: Glucose, Whole Blood 260 mg/dL (60-115)
[2023-02-16] MEDS: Insulin Lispro 100 UNIT/ML 3 ML VIAL SUBCUT ×2 (11:39→21:11)
--- NOTE | 2023-02-16 12:32 | P.PNIM_ITS ---
Subjective Subjective Date of Service: 02/16/23 Interval History: offers no complaints, no acute issues overnight. Review of Systems unable to obtain due to mental status Physical Exam Vital Signs: Vital Signs: Last Vital Signs Temp 98.2 F 02/16/23 07:23 Pulse 87 02/16/23 07:23 Resp 20 02/16/23 07:23 BP 134/67 02/16/23 07:23 Pulse Ox 97 02/16/23 07:23 O2 Del Method Room Air 02/16/23 07:23 O2 Flow Rate 2 01/19/23 22:40 Oxygen Flow Rate 3 01/10/23 18:20 BMI result Body Mass Index 24.2 Const: Other: General: awake, alert, no acute distress neck supple GI: abdomen soft nontender bowel sounds audible Skin: No rash, Oates in place Neuro:? motor grossly intact Psych: appropriate affect Objective Data Active Medications Acetaminophen (Acetaminophen 325 Mg Tablet) 975 mg PO Q6H [facility] Last Admin: 02/16/23 11:40 Dose: 975 mg Documented By: NONA Amlodipine Besylate (Amlodipine Besylate 5 Mg Tablet) 5 mg PO DAILY [facility]; Protocol Last Admin: 02/16/23 09:05 Dose: 5 mg Documented By: NONA Apixaban (Apixaban 2.5 Mg Tablet) 2.5 mg PO BID [facility] Last Admin: 02/16/23 09:05 Dose: 2.5 mg Documented By: NONA Bicalutamide (Bicalutamide 50 Mg Tablet) 50 mg PO TID [facility] Last Admin: 02/16/23 09:02 Dose: 50 mg Documented By: NONA Docusate Sodium (Docusate Sodium 100 Mg Capsule) 100 mg PO DAILY PRN PRN Reason: Constipation Last Admin: 01/05/23 08:05 Dose: 100 mg Documented By: MIKE Finasteride (Finasteride 5 Mg Tablet) 5 mg PO DAILY [facility] Last Admin: 02/16/23 09:02 Dose: 5 mg Documented By: NONA Gabapentin (Gabapentin 100 Mg Capsule) 100 mg PO BID [facility] Last Admin: 02/16/23 09:02 Dose: 100 mg Documented By: NONA Glucose (Glucose Gel 15 Gm Gel..Gram.) 15 gm PO Q15M PRN; Protocol PRN Reason: per Hypoglycemia Standing Ord. Dextrose (D10) 250 mls @ 750 mls/hr IV Q15M PRN; Protocol PRN Reason: per Hypoglycemia Standing Ord. Insulin Human Lispro (Insulin Lispro 100 Unit/Ml 3 Ml Vial) 0 unit SUBCUT QIDACHS [facility]; Protocol Last Admin: 02/16/23 11:39 Dose: 6 unit Documented By: NONA Metformin HCl (Metformin Hcl Er 500 Mg Tab.Er.24h) 2,000 mg PO DAILY [facility] Last Admin: 02/16/23 09:02 Dose: 2,000 mg Documented By: NONA Metoprolol Tartrate (Metoprolol Tartrate 25 Mg Tablet) 25 mg PO BID [facility]; P rotocol Last Admin: 02/16/23 09:05 Dose: 25 mg Documented By: NONA Olanzapine (Olanzapine 10 Mg Vial) 5 mg IM DAILY PRN PRN Reason: agitation Olanzapine (Olanzapine 2.5 Mg Tablet) 2.5 mg PO Q4H PRN PRN Reason: Delirium Last Admin: 02/15/23 03:35 Dose: 2.5 mg Documented By: HEIDI Olanzapine (Olanzapine 2.5 Mg Tablet) 2.5 mg PO DAILY [facility] Last Admin: 02/16/23 09:02 Dose: 2.5 mg Documented By: NONA Ondansetron HCl (Ondansetron Hcl 4 Mg/2 Ml Vial) 4 mg IVPUSH Q8H PRN PRN Reason: Nausea and Vomiting Ondansetron HCl (Ondansetron Hcl 4 Mg/2 Ml Vial) 4 mg IVPUSH ONCE PRN PRN Reason: Nausea and Vomiting Pharmacy Consult (Consult Rx Perform Med Rec) 1 each MISCELLANE ONCE PRN PRN Reason: Consult order Pravastatin Sodium (Pravastatin Sodium 40 Mg Tablet) 40 mg PO BEDTIME [facility] Last Admin: 02/15/23 21:43 Dose: 40 mg Documented By: ORALIA Sodium Chloride (0.9 % Sodium Chloride Flush 3 Ml Syringe) 3 ml IVFLUSH QSHIFT [facility] Last Admin: 02/16/23 08:51 Dose: Not Given Documented By: NONA Non-Admin Reason: IV Running Tamsulosin HCl (Tamsulosin Hcl 0.4 Mg Capsule) 0.8 mg PO DAILY [facility] Last Admin: 02/16/23 09:02 Dose: 0.8 mg Documented By: NONA Labs 02/16/23 06:24 02/16/23 06:24 Labs: Laboratory Results - last 24 hr 02/15/23 02/15/23 02/16/23 16:24 20:16 06:24 MCV 89.8 MCH 30.4 MCHC 33.9 RDW 13.7 Plt Count 416 H MPV 9.4 Absolute Nucleated RBC 0.000 Nucleated RBC % (auto) 0.0 Anion Gap Estim Creat Clear Calc Estimated GFR POC Glucose 99 145 H Fasting Glucose Calcium 02/16/23 02/16/23 02/16/23 06:24 07:20 11:02 MCV MCH MCHC RDW Plt Count MPV Absolute Nucleated RBC Nucleated RBC % (auto) Anion Gap 13 Estim Creat Clear Calc 50.2 Estimated GFR > 60 POC Glucose 133 H 260 H Fasting Glucose 134 H Calcium 9.5 Assessment and Plan (1) Diabetes type 2, controlled: Status: Acute (2) Prostate cancer: Status: Acute (3) Cognitive disorder: Status: Acute (4) Metastasis to bone: Status: Acute Plan 82-year-old male with a PMH significant for recently diagnosed?AFib on Eliquis, moh-yytwqcv-ndfsdkiae diabetes, and enlarged prostate who presented to the ED with?generalized weakness.? Patient recently presented to the emergency room 5 days prior on 12/26/2022 for evaluation of lower back pain.? Patient was found to have new onset AFib with RVR and a likely UTI.? CT scan of abdomen and pelvis found a marked heterogeneous enlargement the prostate gland with asymmetric nodular thickening of the left seminal vesicle concerning for primary malignancy.? 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 ?Continue Casodex as per Urology acute hypoxic respiratory failure 2/2 LLL atelactasis reolved ?Paroxysmal afib with rvr ?rate control, continue metoprolol and Eliquis Metabolic encephalopathy ( acute delirium in backdrop of chronic dementia) likely natural progression of dementia patient lacks capacity to make most medical decisions and unlikely to be able to live safely independently(psychiatry) awaiting placement(insurance pending) ANTONELLA on CKD II resolved after Oates placement failed voiding trial,oates replaced acute on chronic anemia Hb 10.7 with hematocrit 31.6 is stable DMI ?acceptable control on metformin and lispro correctional scale, few high blood pressure reading was paroxysmal afib ?Eliquis, lopressor ?full code dvt prophylaxis - on eliquis ?Requires continued hospitalization: pending safe discharge to SNF (awaiting bed) Time Spent With Patient Time: Total time managing care of this patient today ____ minutes. Quality Stroke Does the patient have a stroke diagnosis?: No VTE Prior VTE?: No VTE Risk Level:: Medical - moderate - high VTE Device Contraindication: Treatment Not Indicated VTE Drug Contraindication: N/A - Med Ordered
[2023-02-16] MEDS: oxyCODONE HCl Immed Release 5 MG TABLET PO (14:19)
--- NOTE | 2023-02-16 14:28 | MHC.CM.PN ---
per rounds pt ready no beds avaliable
[2023-02-16 15:58] VITALS: BP 112/54; PULSE 84; RESP 18; TEMP 36.3; O2SAT 95
[2023-02-16 16:34] LABS: Glucose, Whole Blood 86 mg/dL (60-115)
[2023-02-16 19:34] VITALS: BP 132/62; PULSE 73; RESP 16; TEMP 36.2; O2SAT 98
[2023-02-16 20:45] LABS: Glucose, Whole Blood 161 mg/dL (60-115)
[2023-02-16] MEDS: Pravastatin Sodium 40 MG TABLET PO (21:09)
[2023-02-17 03:15] VITALS: BP 127/60; PULSE 81; RESP 16; TEMP 36.4; O2SAT 98
[2023-02-17] MEDS: Acetaminophen 325 MG TABLET 975 MG PO ×3 (05:26→19:17)
[2023-02-17 07:35] LABS: Glucose, Whole Blood 125 mg/dL (60-115)
[2023-02-17 07:47] VITALS: BP 132/95; PULSE 77; RESP 20; TEMP 36.8; O2SAT 97
[2023-02-17] MEDS: Bicalutamide 50 MG TABLET PO ×3 (08:15→20:55)
[2023-02-17] MEDS: Tamsulosin HCL 0.4 MG CAPSULE 0.8 MG PO (08:15)
[2023-02-17] MEDS: metFORMIN HCl ER 500 MG TAB.ER.24H 2000 MG PO (08:15)
[2023-02-17] MEDS: Gabapentin 100 MG CAPSULE PO ×2 (08:15→20:55)
[2023-02-17] MEDS: Finasteride 5 MG TABLET PO (08:15)
[2023-02-17] MEDS: OLANZapine 2.5 MG TABLET PO (08:15)
[2023-02-17] MEDS: Apixaban 2.5 MG TABLET PO ×2 (08:15→20:56)
[2023-02-17] MEDS: amLODIPine Besylate 5 MG TABLET PO (08:15)
[2023-02-17] MEDS: Metoprolol Tartrate 25 MG TABLET PO ×2 (08:16→20:55)
[2023-02-17 11:30] LABS: Glucose, Whole Blood 162 mg/dL (60-115)
[2023-02-17] MEDS: Insulin Lispro 100 UNIT/ML 3 ML VIAL SUBCUT ×2 (11:38→20:56)
[2023-02-17] MEDS: oxyCODONE HCl Immed Release 5 MG TABLET PO ×2 (14:42→20:59)
--- NOTE | 2023-02-17 15:03 | HO.PM.IMPN ---
Subjective Subjective Date of Service: 02/17/23 Interval History: sitting comfortably, offers no acute complaints, no issues overnight Review of Systems unable to obtain due to mental status. Physical Exam Vital Signs: Vital Signs: Last Vital Signs Temp 98.2 F 02/17/23 07:47 Pulse 77 02/17/23 07:47 Resp 20 02/17/23 07:47 BP 132/95 H 02/17/23 07:47 Pulse Ox 97 02/17/23 07:47 O2 Del Method Room Air 02/17/23 07:47 O2 Flow Rate 2 01/19/23 22:40 Oxygen Flow Rate 3 01/10/23 18:20 BMI result Body Mass Index 24.2 Const: Other: General:? awake, alert, no acute distress neck supple GI:? abdomen soft nontender bowel sounds audible Skin: No rash, Oates in place Neuro:? motor grossly intact Psych: poor insight Objective Data Active Medications Acetaminophen (Acetaminophen 325 Mg Tablet) 975 mg PO Q6H [facility] Last Admin: 02/17/23 11:38 Dose: 975 mg Documented By: PETER Amlodipine Besylate (Amlodipine Besylate 5 Mg Tablet) 5 mg PO DAILY [facility]; Protocol Last Admin: 02/17/23 08:15 Dose: 5 mg Documented By: NONA Apixaban (Apixaban 2.5 Mg Tablet) 2.5 mg PO BID [facility] Last Admin: 02/17/23 08:15 Dose: 2.5 mg Documented By: NONA Bicalutamide (Bicalutamide 50 Mg Tablet) 50 mg PO TID [facility] Last Admin: 02/17/23 14:43 Dose: 50 mg Documented By: NONA Docusate Sodium (Docusate Sodium 100 Mg Capsule) 100 mg PO DAILY PRN PRN Reason: Constipation Last Admin: 01/05/23 08:05 Dose: 100 mg Documented By: MIKE Finasteride (Finasteride 5 Mg Tablet) 5 mg PO DAILY [facility] Last Admin: 02/17/23 08:15 Dose: 5 mg Documented By: NONA Gabapentin (Gabapentin 100 Mg Capsule) 100 mg PO BID [facility] Last Admin: 02/17/23 08:15 Dose: 100 mg Documented By: NONA Glucose (Glucose Gel 15 Gm Gel..Gram.) 15 gm PO Q15M PRN; Protocol PRN Reason: per Hypoglycemia Standing Ord. Dextrose (D10) 250 mls @ 750 mls/hr IV Q15M PRN; Protocol PRN Reason: per Hypoglycemia Standing Ord. Insulin Human Lispro (Insulin Lispro 100 Unit/Ml 3 Ml Vial) 0 unit SUBCUT QIDACHS [facility]; Protocol Last Admin: 02/17/23 11:38 Dose: 2 unit Documented By: PETER Metformin HCl (Metformin Hcl Er 500 Mg Tab.Er.24h) 2,000 mg PO DAILY [facility] Last Admin: 02/17/23 08:15 Dose: 2,000 mg Documented By: NONA Metoprolol Tartrate (Metoprolol Tartrate 25 Mg Tablet) 25 mg PO BID [facility]; Protocol Last Admin: 02/17/23 08:16 Dose: 25 mg Documented By: NONA Olanzapine (Olanzapine 10 Mg Vial) 5 mg IM DAILY PRN PRN Reason: agitation Olanzapine (Olanzapine 2.5 Mg Tablet) 2.5 mg PO Q4H PRN PRN Reason: Delirium Last Admin: 02/15/23 03:35 Dose: 2.5 mg Documented By: HEIDI Olanzapine (Olanzapine 2.5 Mg Tablet) 2.5 mg PO DAILY [facility] Last Admin: 02/17/23 08:15 Dose: 2.5 mg Documented By: NONA Ondansetron HCl (Ondansetron Hcl 4 Mg/2 Ml Vial) 4 mg IVPUSH Q8H PRN PRN Reason: Nausea and Vomiting Ondansetron HCl (Ondansetron Hcl 4 Mg/2 Ml Vial) 4 mg IVPUSH ONCE PRN PRN Reason: Nausea and Vomiting Oxycodone HCl (Oxycodone Hcl Immed Release 5 Mg Tablet) 5 mg PO Q6H PRN PRN Reason: Pain, Severe (Pain Scale 7-10) Last Admin: 02/17/23 14:42 Dose: 5 mg Documented By: NONA Pharmacy Consult (Consult Rx Perform Med Rec) 1 each MISCELLANE ONCE PRN PRN Reason: Consult order Pravastatin Sodium (Pravastatin Sodium 40 Mg Tablet) 40 mg PO BEDTIME [facility] Last Admin: 02/16/23 21:09 Dose: 40 mg Documented By: PADMINI Sodium Chloride (0.9 % Sodium Chloride Flush 3 Ml Syringe) 3 ml IVFLUSH QSHIFT [facility] Last Admin: 02/17/23 14:43 Dose: Not Given Documented By: NONA Non-Admin Reason: No Access Tamsulosin HCl (Tamsulosin Hcl 0.4 Mg Capsule) 0.8 mg PO DAILY [facility] Last Admin: 02/17/23 08:15 Dose: 0.8 mg Documented By: NONA Labs 02/16/23 06:24 02/16/23 06:24 Labs: Laboratory Results - last 24 hr 02/16/23 02/16/23 02/17/23 16:28 20:42 07:16 POC Glucose 86 161 H 125 H 02/17/23 11:19 POC Glucose 162 H Assessment and Plan (1) Diabetes type 2, controlled: Status: Acute (2) Prostate cancer: Status: Acute (3) Cognitive disorder: Status: Acute (4) Metastasis to bone: Status: Acute Plan 82-year-old male with a PMH significant for recently diagnosed?AFib on Eliquis, jil-bdjfzef-xjwrheyla diabetes, and enlarged prostate who presented to the ED with?generalized weakness.? Patient recently presented to the emergency room 5 days prior on 12/26/2022 for evaluation of lower back pain.? Patient was found to have new onset AFib with RVR and a likely UTI.? CT scan of abdomen and pelvis found a marked heterogeneous enlargement the prostate gland with asymmetric nodular thickening of the left seminal vesicle concerning for primary malignancy.? 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 ?Continue Casodex as per Urology acute hypoxic respiratory failure 2/2 LLL atelactasis reolved ?Paroxysmal afib with rvr ?rate control, continue metoprolol and Eliquis Metabolic encephalopathy ( acute delirium in backdrop of chronic dementia) likely natural progression of dementia patient lacks capacity to make most medical decisions and unlikely to be able to live safely independently(psychiatry) awaiting placement(insurance pending) ANTONELLA on CKD II resolved after Oates placement failed voiding trial,oates replaced acute on chronic anemia Hb 10.7 with hematocrit 31.6 is stable DMI ?acceptable control on metformin and lispro correctional scale, few high blood pressure reading was paroxysmal afib ?Eliquis, lopressor ?full code dvt prophylaxis - on eliquis ?Requires continued hospitalization: pending safe discharge to SNF (awaiting bed) Time Spent With Patient Time: Total time managing care of this patient today ____ minutes. Quality Stroke Does the patient have a stroke diagnosis?: No VTE Prior VTE?: No VTE Risk Level:: Medical - moderate - high VTE Device Contraindication: Treatment Not Indicated VTE Drug Contraindication: N/A - Med Ordered
[2023-02-17 15:06] VITALS: BP 131/63; PULSE 71; RESP 18; TEMP 36.4; O2SAT 98
--- NOTE | 2023-02-17 15:57 | MHC.CM.PN ---
CM SPOKE WITH FS WHO WILL AGAIN REACH OUT TO [facility] TO CHECK ON STATUS OF APPROVAL. REFERRALS UPDATED.
[2023-02-17 16:09] LABS: Glucose, Whole Blood 145 mg/dL (60-115)
[2023-02-17 19:02] VITALS: BP 118/59; PULSE 75; RESP 16; TEMP 36.3; O2SAT 97
[2023-02-17 19:48] LABS: Glucose, Whole Blood 202 mg/dL (60-115)
[2023-02-17] MEDS: Pravastatin Sodium 40 MG TABLET PO (20:55)
[2023-02-17 23:52] VITALS: BP 114/56; PULSE 88; RESP 16; TEMP 36.3; O2SAT 96
[2023-02-18] MEDS: Acetaminophen 325 MG TABLET 975 MG PO ×2 (06:12→11:41)
--- NOTE | 2023-02-18 06:32 | PC.NURSE ---
NG tube output 500ml translucent light brown liquid.
[2023-02-18 07:28] LABS: Glucose, Whole Blood 114 mg/dL (60-115)
[2023-02-18 07:30] VITALS: BP 109/53; PULSE 81; RESP 20; TEMP 36.3; O2SAT 95
[2023-02-18] MEDS: Apixaban 2.5 MG TABLET PO ×2 (08:15→21:10)
[2023-02-18] MEDS: Bicalutamide 50 MG TABLET PO ×3 (08:15→21:10)
[2023-02-18] MEDS: Gabapentin 100 MG CAPSULE PO ×2 (08:15→21:10)
[2023-02-18] MEDS: Finasteride 5 MG TABLET PO (08:15)
[2023-02-18] MEDS: Tamsulosin HCL 0.4 MG CAPSULE 0.8 MG PO (08:15)
[2023-02-18] MEDS: Metoprolol Tartrate 25 MG TABLET PO ×2 (08:15→21:10)
[2023-02-18] MEDS: amLODIPine Besylate 5 MG TABLET PO (08:16)
[2023-02-18] MEDS: OLANZapine 2.5 MG TABLET PO (08:16)
[2023-02-18] MEDS: metFORMIN HCl ER 500 MG TAB.ER.24H 2000 MG PO (08:16)
[2023-02-18 11:21] LABS: Glucose, Whole Blood 173 mg/dL (60-115)
[2023-02-18] MEDS: Insulin Lispro 100 UNIT/ML 3 ML VIAL SUBCUT (11:40)
--- NOTE | 2023-02-18 12:59 | HO.PM.IMPN ---
Subjective Subjective Date of Service: 02/18/23 Interval History: Resting in bed complaining of back pain taking Tylenol with some relief, eating well, no nausea, no vomiting, no abdominal pain, no acute issues overnight Review of Systems all other system reviewed and negative Physical Exam Vital Signs: Vital Signs: Last Vital Signs Temp 97.3 F 02/18/23 07:30 Pulse 81 02/18/23 07:30 Resp 20 02/18/23 07:30 BP 109/53 L 02/18/23 07:30 Pulse Ox 95 02/18/23 07:30 O2 Del Method Room Air 02/18/23 07:30 O2 Flow Rate 2 01/19/23 22:40 Oxygen Flow Rate 3 01/10/23 18:20 BMI result Body Mass Index 24.2 Const: Other: General:? awake, a lert, no acute dis tress neck: supple GI:? abdomen soft , nontender, bowel sounds audible Sk in: No rash, Oates in place Neuro:? motor grossly inta ct Psych:? poor in sight Objective Data Active Medications Acetaminophen (Acetaminophen 325 Mg Tablet) 975 mg PO Q6H [facility] Last Admin: 02/18/23 11:41 Dose: 975 mg Documented By: NONA Amlodipine Besylate (Amlodipine Besylate 5 Mg Tablet) 5 mg PO DAILY [facility]; Protocol Last Admin: 02/18/23 08:16 Dose: 5 mg Documented By: NONA Apixaban (Apixaban 2.5 Mg Tablet) 2.5 mg PO BID [facility] Last Admin: 02/18/23 08:15 Dose: 2.5 mg Documented By: NONA Bicalutamide (Bicalutamide 50 Mg Tablet) 50 mg PO TID [facility] Last Admin: 02/18/23 08:15 Dose: 50 mg Documented By: NONA Docusate Sodium (Docusate Sodium 100 Mg Capsule) 100 mg PO DAILY PRN PRN Reason: Constipation Last Admin: 01/05/23 08:05 Dose: 100 mg Documented By: MIKE Finasteride (Finasteride 5 Mg Tablet) 5 mg PO DAILY [facility] Last Admin: 02/18/23 08:15 Dose: 5 mg Documented By: NONA Gabapentin (Gabapentin 100 Mg Capsule) 100 mg PO BID [facility] Last Admin: 02/18/23 08:15 Dose: 100 mg Documented By: NONA Glucose (Glucose Gel 15 Gm Gel..Gram.) 15 gm PO Q15M PRN; Protocol PRN Reason: per Hypoglycemia Standing Ord. Dextrose (D10) 250 mls @ 750 mls/hr IV Q15M PRN; Protocol PRN Reason: per Hypoglycemia Standing Ord. Insulin Human Lispro (Insulin Lispro 100 Unit/Ml 3 Ml Vial) 0 unit SUBCUT QIDACHS [facility]; Protocol Last Admin: 02/18/23 11:40 Dose: 2 unit Documented By: NONA Metformin HCl (Metformin Hcl Er 500 Mg Tab.Er.24h) 2,000 mg PO DAILY [facility] Last Admin: 02/18/23 08:16 Dose: 2,000 mg Documented By: NONA Metoprolol Tartrate (Metoprolol Tartrate 25 Mg Tablet) 25 mg PO BID [facility]; Protocol Last Admin: 02/18/23 08:15 Dose: 25 mg Documented By: NONA Olanzapine (Olanzapine 10 Mg Vial) 5 mg IM DAILY PRN PRN Reason: agitation Olanzapine (Olanzapine 2.5 Mg Tablet) 2.5 mg PO Q4H PRN PRN Reason: Delirium Last Admin: 02/15/23 03:35 Dose: 2.5 mg Documented By: HEIDI Olanzapine (Olanzapine 2.5 Mg Tablet) 2.5 mg PO DAILY [facility] Last Admin: 02/18/23 08:16 Dose: 2.5 mg Documented By: NONA Ondansetron HCl (Ondansetron Hcl 4 Mg/2 Ml Vial) 4 mg IVPUSH Q8H PRN PRN Reason: Nausea and Vomiting Ondansetron HCl (Ondansetron Hcl 4 Mg/2 Ml Vial) 4 mg IVPUSH ONCE PRN PRN Reason: Nausea and Vomiting Oxycodone HCl (Oxycodone Hcl Immed Release 5 Mg Tablet) 5 mg PO Q6H PRN PRN Reason: Pain, Severe (Pain Scale 7-10) Last Admin: 02/17/23 20:59 Dose: 5 mg Documented By: ORALIA Pharmacy Consult (Consult Rx Perform Med Rec) 1 each MISCELLANE ONCE PRN PRN Reason: Consult order Pravastatin Sodium (Pravastatin Sodium 40 Mg Tablet) 40 mg PO BEDTIME [facility] Last Admin: 02/17/23 20:55 Dose: 40 mg Documented By: ORALIA Sodium Chloride (0.9 % Sodium Chloride Flush 3 Ml Syringe) 3 ml IVFLUSH QSHIFT [facility] Last Admin: 02/18/23 07:37 Dose: Not Given Documented By: NONA Non-Admin Reason: No Access Tamsulosin HCl (Tamsulosin Hcl 0.4 Mg Capsule) 0.8 mg PO DAILY [facility] Last Admin: 02/18/23 08:15 Dose: 0.8 mg Documented By: NONA Labs 02/16/23 06:24 02/16/23 06:24 Labs: Laboratory Results - last 24 hr 02/17/23 02/17/23 02/18/23 15:59 19:44 07:24 POC Glucose 145 H 202 H 114 02/18/23 11:17 POC Glucose 173 H Assessment and Plan (1) Diabetes type 2, controlled: Status: Acute (2) Prostate cancer: Status: Acute (3) Cognitive disorder: Status: Acute (4) Metastasis to bone: Status: Acute Plan 82-year-old male with a PMH significant for recently diagnosed?AFib on Eliquis, zce-vupjybr-qwjaocqma diabetes, and enlarged prostate who presented to the ED with?generalized weakness.? Patient recently presented to the emergency room 5 days prior on 12/26/2022 for evaluation of lower back pain.? Patient was found to have new onset AFib with RVR and a likely UTI.? CT scan of abdomen and pelvis found a marked heterogeneous enlargement the prostate gland with asymmetric nodular thickening of the left seminal vesicle concerning for primary malignancy.? 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 acute hypoxic respiratory failure 2/2 LLL atelactasis reolved ?Paroxysmal afib with rvr ?rate control, continue metoprolol and Eliquis Metabolic encephalopathy ( acute delirium in backdrop of chronic dementia) likely natural progression of dementia patient lacks capacity to make most medical decisions and unlikely to be able to live safely independently(psychiatry) awaiting placement(insurance pending) ANTONELLA on CKD II resolved after Oates placement failed voiding trial,oates replaced acute on chronic anemia Hb 10.7 with hematocrit 31.6 is stable DMI ?acceptable control on metformin and lispro correctional scale, few high blood pressure reading was paroxysmal afib ?Eliquis, lopressor ?full code dvt prophylaxis - on eliquis ?Requires continued hospitalization: pending safe discharge to SNF (awaiting bed) Time Spent With Patient Time: Total time managing care of this patient today ____ minutes. Quality Stroke Does the patient have a stroke diagnosis?: No VTE Prior VTE?: No VTE Risk Level:: Medical - moderate - high VTE Device Contraindication: Treatment Not Indicated VTE Drug Contraindication: N/A - Med Ordered
[2023-02-18] MEDS: Celecoxib 200 MG CAPSULE PO (13:53)
[2023-02-18 15:17] VITALS: BP 105/55; PULSE 82; RESP 18; TEMP 36.1; O2SAT 99
[2023-02-18 16:28] LABS: Glucose, Whole Blood 114 mg/dL (60-115)
[2023-02-18 19:31] VITALS: BP 127/65; PULSE 86; RESP 18; TEMP 36.1; O2SAT 97
[2023-02-18 20:49] LABS: Glucose, Whole Blood 143 mg/dL (60-115)
[2023-02-18] MEDS: Pravastatin Sodium 40 MG TABLET PO (21:10)
[2023-02-18] MEDS: oxyCODONE HCl Immed Release 5 MG TABLET PO (21:10)
[2023-02-19 03:07] VITALS: BP 125/60; PULSE 67; RESP 16; TEMP 36.2; O2SAT 96
[2023-02-19] MEDS: Acetaminophen 325 MG TABLET 975 MG PO ×3 (05:57→17:07)
[2023-02-19 07:00] VITALS: BP 128/60; PULSE 66; RESP 18; TEMP 36.3; O2SAT 97
[2023-02-19 07:23] LABS: Glucose, Whole Blood 131 mg/dL (60-115)
[2023-02-19] MEDS: Tamsulosin HCL 0.4 MG CAPSULE 0.8 MG PO (08:32)
[2023-02-19] MEDS: Finasteride 5 MG TABLET PO (08:32)
[2023-02-19] MEDS: OLANZapine 2.5 MG TABLET PO (08:32)
[2023-02-19] MEDS: Bicalutamide 50 MG TABLET PO ×3 (08:32→19:51)
[2023-02-19] MEDS: metFORMIN HCl ER 500 MG TAB.ER.24H 2000 MG PO (08:32)
[2023-02-19] MEDS: amLODIPine Besylate 5 MG TABLET PO (08:33)
[2023-02-19] MEDS: Apixaban 2.5 MG TABLET PO ×2 (08:33→19:50)
[2023-02-19] MEDS: Gabapentin 100 MG CAPSULE PO ×2 (08:33→19:51)
[2023-02-19] MEDS: Metoprolol Tartrate 25 MG TABLET PO ×2 (08:33→19:51)
[2023-02-19 11:06] LABS: Glucose, Whole Blood 189 mg/dL (60-115)
[2023-02-19] MEDS: Insulin Lispro 100 UNIT/ML 3 ML VIAL SUBCUT (11:59)
[2023-02-19] MEDS: oxyCODONE HCl Immed Release 5 MG TABLET PO ×2 (12:17→19:50)
--- NOTE | 2023-02-19 13:38 | HO.PM.IMPN ---
Subjective Subjective Date of Service: 02/19/23 Interval History: complaining of back pain, hand stiffness taking Tylenol with no relief, is tolerating diet no nausea, no vomiting, no abdominal pain, no acute issues overnight. Review of Systems all other system reviewed and negative. Physical Exam Vital Signs: Vital Signs: Last Vital Signs Temp 97.4 F 02/19/23 07:00 Pulse 66 02/19/23 07:00 Resp 18 02/19/23 07:00 BP 128/60 02/19/23 07:00 Pulse Ox 97 02/19/23 07:00 O2 Del Method Room Air 02/19/23 07:00 O2 Flow Rate 2 01/19/23 22:40 Oxygen Flow Rate 3 01/10/23 18:20 BMI result Body Mass Index 24.2 Const: Other: General:? awake, alert, no acute distress neck supple GI:? abdomen soft nontender bowel sounds audible Skin: No rash, Oates in place Neuro:? motor grossly intact extremities both hands normal examination Psych:? poor insight back bilateral upper back tenderness to palpation, lower mid back tenderness to palpation. Objective Data Active Medications Acetaminophen (Acetaminophen 325 Mg Tablet) 975 mg PO Q6H [facility] Last Admin: 02/19/23 11:59 Dose: 975 mg Documented By: ROBERT Amlodipine Besylate (Amlodipine Besylate 5 Mg Tablet) 5 mg PO DAILY [facility]; Protocol Last Admin: 02/19/23 08:33 Dose: 5 mg Documented By: LEIGH Apixaban (Apixaban 2.5 Mg Tablet) 2.5 mg PO BID [facility] Last Admin: 02/19/23 08:33 Dose: 2.5 mg Documented By: LEIGH Bicalutamide (Bicalutamide 50 Mg Tablet) 50 mg PO TID [facility] Last Admin: 02/19/23 08:32 Dose: 50 mg Documented By: LEIGH Docusate Sodium (Docusate Sodium 100 Mg Capsule) 100 mg PO DAILY PRN PRN Reason: Constipation Last Admin: 01/05/23 08:05 Dose: 100 mg Documented By: MIKE Finasteride (Finasteride 5 Mg Tablet) 5 mg PO DAILY [facility] Last Admin: 02/19/23 08:32 Dose: 5 mg Documented By: LEIGH Gabapentin (Gabapentin 100 Mg Capsule) 100 mg PO BID [facility] Last Admin: 02/19/23 08:33 Dose: 100 mg Documented By: LEIGH Glucose (Glucose Gel 15 Gm Gel..Gram.) 15 gm PO Q15M PRN; Protocol PRN Reason: per Hypoglycemia Standing Ord. Dextrose (D10) 250 mls @ 750 mls/hr IV Q15M PRN; Protocol PRN Reason: per Hypoglycemia Standing Ord. Insulin Human Lispro (Insulin Lispro 100 Unit/Ml 3 Ml Vial) 0 unit SUBCUT QIDACHS [facility]; Protocol Last Admin: 02/19/23 11:59 Dose: 2 unit Documented By: ROBERT Metformin HCl (Metformin Hcl Er 500 Mg Tab.Er.24h) 2,000 mg PO DAILY [facility] Last Admin: 02/19/23 08:32 Dose: 2,000 mg Documented By: LEIGH Metoprolol Tartrate (Metoprolol Tartrate 25 Mg Tablet) 25 mg PO BID [facility]; Protocol Last Admin: 02/19/23 08:33 Dose: 25 mg Documented By: LEIGH Olanzapine (Olanzapine 10 Mg Vial) 5 mg IM DAILY PRN PRN Reason: agitation Olanzapine (Olanzapine 2.5 Mg Tablet) 2.5 mg PO Q4H PRN PRN Reason: Delirium Last Admin: 02/15/23 03:35 Dose: 2.5 mg Documented By: HEIDI Olanzapine (Olanzapine 2.5 Mg Tablet) 2.5 mg PO DAILY [facility] Last Admin: 02/19/23 08:32 Dose: 2.5 mg Documented By: LEIGH Ondansetron HCl (Ondansetron Hcl 4 Mg/2 Ml Vial) 4 mg IVPUSH Q8H PRN PRN Reason: Nausea and Vomiting Ondansetron HCl (Ondansetron Hcl 4 Mg/2 Ml Vial) 4 mg IVPUSH ONCE PRN PRN Reason: Nausea and Vomiting Oxycodone HCl (Oxycodone Hcl Immed Release 5 Mg Tablet) 5 mg PO Q6H PRN PRN Reason: Pain, Severe (Pain Scale 7-10) Last Admin: 02/19/23 12:17 Dose: 5 mg Documented By: LEIGH Pharmacy Consult (Consult Rx Perform Med Rec) 1 each MISCELLANE ONCE PRN PRN Reason: Consult order Pravastatin Sodium (Pravastatin Sodium 40 Mg Tablet) 40 mg PO BEDTIME [facility] Last Admin: 02/18/23 21:10 Dose: 40 mg Documented By: LEE ANN Sodium Chloride (0.9 % Sodium Chloride Flush 3 Ml Syringe) 3 ml IVFLUSH QSHIFT [facility] Last Admin: 02/19/23 08:33 Dose: Not Given Documented By: LEIGH Non-Admin Reason: no IV access Tamsulosin HCl (Tamsulosin Hcl 0.4 Mg Capsule) 0.8 mg PO DAILY [facility] Last Admin: 02/19/23 08:32 Dose: 0.8 mg Documented By: LEIGH Labs 02/16/23 06:24 02/16/23 06:24 Labs: Laboratory Results - last 24 hr 02/18/23 02/18/23 02/19/23 16:03 20:36 07:06 POC Glucose 114 143 H 131 H 02/19/23 10:59 POC Glucose 189 H Assessment and Plan (1) Diabetes type 2, controlled: Status: Acute (2) Prostate cancer: Status: Acute (3) Cognitive disorder: Status: Acute (4) Metastasis to bone: Status: Acute Plan 82-year-old male with a PMH significant for recently diagnosed?AFib on Eliquis, [id number] diabetes, and enlarged prostate who presented to the ED with?generalized weakness.? Patient recently presented to the emergency room 5 days prior on 12/26/2022 for evaluation of lower back pain.? Patient was found to have new onset AFib with RVR and a likely UTI.? CT scan of abdomen and pelvis found a marked heterogeneous enlargement the prostate gland with asymmetric nodular thickening of the left seminal vesicle concerning for primary malignancy.? 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 ?Continue Casodex as per Urology upper back and lower back discomfort likely due to metastatic disease will place on oxycodone as needed continue Tylenol acute hypoxic respiratory failure 2/2 LLL atelactasis reolved ?Paroxysmal afib with rvr ?rate control, continue metoprolol and Eliquis Metabolic encephalopathy ( acute delirium in backdrop of chronic dementia) likely natural progression of dementia patient lacks capacity to make most medical decisions and unlikely to be able to live safely independently(psychiatry) awaiting placement(insurance pending) ANTONELLA on CKD II resolved after Oates placement failed voiding trial,oates replaced acute on chronic anemia Hb 10.7 with hematocrit 31.6 is stable DMI ?acceptable control on metformin and lispro correctional scale, few high blood pressure reading was paroxysmal afib ?Eliquis, lopressor ?full code dvt prophylaxis - on eliquis ?Requires continued hospitalization: pending safe discharge to SNF (awaiting bed) Time Spent With Patient Time: Total time managing care of this patient today ____ minutes. Quality Stroke Does the patient have a stroke diagnosis?: No VTE Prior VTE?: No VTE Risk Level:: Medical - moderate - high VTE Device Contraindication: Treatment Not Indicated VTE Drug Contraindication: N/A - Med Ordered
[2023-02-19 15:08] VITALS: BP 105/57; PULSE 68; RESP 20; TEMP 36.2; O2SAT 99
[2023-02-19 16:09] LABS: Glucose, Whole Blood 109 mg/dL (60-115)
[2023-02-19 18:58] VITALS: BP 102/55; PULSE 76; RESP 20; TEMP 36.2; O2SAT 94
[2023-02-19 19:48] LABS: Glucose, Whole Blood 146 mg/dL (60-115)
[2023-02-19] MEDS: Pravastatin Sodium 40 MG TABLET PO (19:50)
[2023-02-20] MEDS: Acetaminophen 325 MG TABLET 975 MG PO ×3 (06:15→17:30)
[2023-02-20 07:45] LABS: Glucose, Whole Blood 108 mg/dL (60-115)
[2023-02-20 08:00] VITALS: BP 106/70; PULSE 72; RESP 18; TEMP 36.6; O2SAT 96
[2023-02-20] MEDS: Bicalutamide 50 MG TABLET PO ×3 (08:17→20:21)
[2023-02-20] MEDS: Finasteride 5 MG TABLET PO (08:17)
[2023-02-20] MEDS: oxyCODONE HCl Immed Release 5 MG TABLET PO ×3 (08:18→20:21)
[2023-02-20] MEDS: Apixaban 2.5 MG TABLET PO ×2 (08:18→20:21)
[2023-02-20] MEDS: OLANZapine 2.5 MG TABLET PO (08:18)
[2023-02-20] MEDS: amLODIPine Besylate 5 MG TABLET PO (08:18)
[2023-02-20] MEDS: Gabapentin 100 MG CAPSULE PO ×2 (08:18→20:21)
[2023-02-20] MEDS: metFORMIN HCl ER 500 MG TAB.ER.24H 2000 MG PO (08:18)
[2023-02-20] MEDS: Metoprolol Tartrate 25 MG TABLET PO ×2 (08:18→20:21)
[2023-02-20] MEDS: Tamsulosin HCL 0.4 MG CAPSULE 0.8 MG PO (08:18)
--- NOTE | 2023-02-20 09:29 | HO.PM.IMPN ---
Subjective Subjective Date of Service: 02/20/23 Interval History: being followed for placement, patient offers no acute complaints, continue to complain of back pain, tolerating diet no nausea,no vomiting, no abdominal pain. Review of Systems All other system reviewed and negative. Physical Exam Vital Signs: Vital Signs: Last Vital Signs Temp 97.8 F 02/20/23 08:00 Pulse 72 02/20/23 08:00 Resp 18 02/20/23 08:00 BP 106/70 02/20/23 08:00 Pulse Ox 96 02/20/23 08:00 O2 Del Method Room Air 02/20/23 08:00 O2 Flow Rate 2 01/19/23 22:40 Oxygen Flow Rate 3 01/10/23 18:20 BMI result Body Mass Index 24.2 Const: Other: General:? awake, a lert, no acute dis tress neck supple GI:? abdomen soft non tender bowel s ounds audible Skin : No rash, Oates i n place Neuro:? mo tor grossly intact extremities both hands normal exami nation Psych:? poo r insight back kevin ateral upper back tenderness to palp ation, lower mid b ack tenderness to palpation. Objective Data Active Medications Acetaminophen (Acetaminophen 325 Mg Tablet) 975 mg PO Q6H [facility] Last Admin: 02/20/23 06:15 Dose: 975 mg Documented By: LEE ANN Amlodipine Besylate (Amlodipine Besylate 5 Mg Tablet) 5 mg PO DAILY [facility]; Protocol Last Admin: 02/20/23 08:18 Dose: 5 mg Documented By: LEIGH Apixaban (Apixaban 2.5 Mg Tablet) 2.5 mg PO BID [facility] Last Admin: 02/20/23 08:18 Dose: 2.5 mg Documented By: LEIGH Bicalutamide (Bicalutamide 50 Mg Tablet) 50 mg PO TID [facility] Last Admin: 02/20/23 08:17 Dose: 50 mg Documented By: LEIGH Docusate Sodium (Docusate Sodium 100 Mg Capsule) 100 mg PO DAILY PRN PRN Reason: Constipation Last Admin: 01/05/23 08:05 Dose: 100 mg Documented By: MIKE Finasteride (Finasteride 5 Mg Tablet) 5 mg PO DAILY [facility] Last Admin: 02/20/23 08:17 Dose: 5 mg Documented By: LEIGH Gabapentin (Gabapentin 100 Mg Capsule) 100 mg PO BID [facility] Last Admin: 02/20/23 08:18 Dose: 100 mg Documented By: LEIGH Glucose (Glucose Gel 15 Gm Gel..Gram.) 15 gm PO Q15M PRN; Protocol PRN Reason: per Hypoglycemia Standing Ord. Dextrose (D10) 250 mls @ 750 mls/hr IV Q15M PRN; Protocol PRN Reason: per Hypoglycemia Standing Ord. Insulin Human Lispro (Insulin Lispro 100 Unit/Ml 3 Ml Vial) 0 unit SUBCUT QIDACHS [facility]; Protocol Last Admin: 02/20/23 08:17 Dose: Not Given Documented By: LEIGH Non-Admin Reason: No Insulin Coverage Metformin HCl (Metformin Hcl Er 500 Mg Tab.Er.24h) 2,000 mg PO DAILY [facility] Last Admin: 02/20/23 08:18 Dose: 2,000 mg Documented By: LEIGH Metoprolol Tartrate (Metoprolol Tartrate 25 Mg Tablet) 25 mg PO BID [facility]; Protocol Last Admin: 02/20/23 08:18 Dose: 25 mg Documented By: LEIGH Olanzapine (Olanzapine 10 Mg Vial) 5 mg IM DAILY PRN PRN Reason: agitation Olanzapine (Olanzapine 2.5 Mg Tablet) 2.5 mg PO Q4H PRN PRN Reason: Delirium Last Admin: 02/15/23 03:35 Dose: 2.5 mg Documented By: HEIDI Olanzapine (Olanzapine 2.5 Mg Tablet) 2.5 mg PO DAILY [facility] Last Admin: 02/20/23 08:18 Dose: 2.5 mg Documented By: LEIGH Ondansetron HCl (Ondansetron Hcl 4 Mg/2 Ml Vial) 4 mg IVPUSH Q8H PRN PRN Reason: Nausea and Vomiting Ondansetron HCl (Ondansetron Hcl 4 Mg/2 Ml Vial) 4 mg IVPUSH ONCE PRN PRN Reason: Nausea and Vomiting Oxycodone HCl (Oxycodone Hcl Immed Release 5 Mg Tablet) 5 mg PO Q6H PRN PRN Reason: Pain, Severe (Pain Scale 7-10) Last Admin: 02/20/23 08:18 Dose: 5 mg Documented By: HO.JERUSIA Oxycodone HCl (Oxycodone Hcl Immed Release 5 Mg Tablet) 5 mg PO Q6H PRN PRN Reason: Pain, Severe (Pain Scale 7-10) Pharmacy Consult (Consult Rx Perform Med Rec) 1 each MISCELLANE ONCE PRN PRN Reason: Consult order Pravastatin Sodium (Pravastatin Sodium 40 Mg Tablet) 40 mg PO BEDTIME [facility] Last Admin: 02/19/23 19:50 Dose: 40 mg Documented By: LEE ANN Sodium Chloride (0.9 % Sodium Chloride Flush 3 Ml Syringe) 3 ml IVFLUSH QSHIFT [facility] Last Admin: 02/20/23 08:21 Dose: Not Given Documented By: LEIGH Non-Admin Reason: no access Tamsulosin HCl (Tamsulosin Hcl 0.4 Mg Capsule) 0.8 mg PO DAILY [facility] Last Admin: 02/20/23 08:18 Dose: 0.8 mg Documented By: LEIGH Labs 02/16/23 06:24 02/16/23 06:24 Labs: Laboratory Results - last 24 hr 02/19/23 02/19/23 02/19/23 10:59 16:00 19:37 POC Glucose 189 H 109 146 H 02/20/23 07:42 POC Glucose 108 Assessment and Plan (1) Diabetes type 2, controlled: Status: Acute (2) Prostate cancer: Status: Acute (3) Cognitive disorder: Status: Acute (4) Metastasis to bone: Status: Acute Plan 82-year-old male with a PMH significant for recently diagnosed?AFib on Eliquis, [id number] diabetes, and enlarged prostate who presented to the ED with?generalized weakness.? Patient recently presented to the emergency room 5 days prior on 12/26/2022 for evaluation of lower back pain.? Patient was found to have new onset AFib with RVR and a likely UTI.? CT scan of abdomen and pelvis found a marked heterogeneous enlargement the prostate gland with asymmetric nodular thickening of the left seminal vesicle concerning for primary malignancy.? 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 acute hypoxic respiratory failure 2/2 LLL atelactasis reolved ?Paroxysmal afib with rvr ?rate control, continue metoprolol and Eliquis Metabolic encephalopathy ( acute delirium in backdrop of chronic dementia) likely natural progression of dementia patient lacks capacity to make most medical decisions and unlikely to be able to live safely independently(psychiatry) awaiting placement(insurance pending) ANTONELLA on CKD II resolved after Oates placement failed voiding trial,oates replaced acute on chronic anemia Hb 10.7 with hematocrit 31.6 is stable DMI ?acceptable control on metformin and lispro correctional scale, few high blood pressure reading was paroxysmal afib ?Eliquis, lopressor ?full code dvt prophylaxis - on eliquis ?Requires continued hospitalization: pending safe discharge to SNF (awaiting bed) Time Spent With Patient Time: Total time managing care of this patient today ____ minutes. Quality Stroke Does the patient have a stroke diagnosis?: No VTE Prior VTE?: No VTE Risk Level:: Medical - moderate - high VTE Device Contraindication: Treatment Not Indicated VTE Drug Contraindication: N/A - Med Ordered
[2023-02-20 11:25] LABS: Glucose, Whole Blood 310 mg/dL (60-115)
[2023-02-20] MEDS: Insulin Lispro 100 UNIT/ML 3 ML VIAL SUBCUT ×2 (11:46→20:21)
[2023-02-20 15:59] VITALS: BP 114/57; PULSE 93; RESP 16; TEMP 36.2; O2SAT 97
[2023-02-20 16:12] LABS: Glucose, Whole Blood 91 mg/dL (60-115)
[2023-02-20 19:48] VITALS: BP 135/77; PULSE 92; RESP 18; TEMP 36.1; O2SAT 97
[2023-02-20 20:12] LABS: Glucose, Whole Blood 151 mg/dL (60-115)
[2023-02-20] MEDS: Pravastatin Sodium 40 MG TABLET PO (20:21)
[2023-02-21 02:16] VITALS: BP 135/69; PULSE 73; RESP 18; TEMP 36.1; O2SAT 96
[2023-02-21] MEDS: Acetaminophen 325 MG TABLET 975 MG PO ×4 (03:47→23:39)
[2023-02-21 07:14] VITALS: BP 138/65; PULSE 90; RESP 18; TEMP 36.4; O2SAT 97
[2023-02-21 07:22] LABS: Glucose, Whole Blood 175 mg/dL (60-115)
[2023-02-21] MEDS: Insulin Lispro 100 UNIT/ML 3 ML VIAL SUBCUT ×3 (08:01→21:18)
[2023-02-21] MEDS: amLODIPine Besylate 5 MG TABLET PO (08:01)
[2023-02-21] MEDS: Metoprolol Tartrate 25 MG TABLET PO ×2 (08:01→20:08)
[2023-02-21] MEDS: Gabapentin 100 MG CAPSULE PO ×2 (08:01→20:09)
[2023-02-21] MEDS: OLANZapine 2.5 MG TABLET PO (08:01)
[2023-02-21] MEDS: Apixaban 2.5 MG TABLET PO ×2 (08:01→20:08)
[2023-02-21] MEDS: metFORMIN HCl ER 500 MG TAB.ER.24H 2000 MG PO (08:01)
[2023-02-21] MEDS: Tamsulosin HCL 0.4 MG CAPSULE 0.8 MG PO (08:01)
[2023-02-21] MEDS: Bicalutamide 50 MG TABLET PO ×3 (08:02→20:09)
[2023-02-21] MEDS: Finasteride 5 MG TABLET PO (08:02)
[2023-02-21 11:31] LABS: Glucose, Whole Blood 209 mg/dL (60-115)
--- NOTE | 2023-02-21 11:53 | P.PNIM_ITS ---
Subjective Subjective Date of Service: 02/21/23 Interval History: being followed for placement, offers no acute complaints, continue to have back pain, on scheduled Tylenol, denies nausea, no vomiting, no constipation or diarrhea tolerating diet no acute issues. Review of Systems All other system reviewed and negative Physical Exam Vital Signs: Vital Signs: Last Vital Signs Temp 97.5 F 02/21/23 07:14 Pulse 90 02/21/23 07:14 Resp 18 02/21/23 07:14 BP 138/65 02/21/23 07:14 Pulse Ox 97 02/21/23 07:14 O2 Del Method Room Air 02/21/23 07:14 O2 Flow Rate 2 01/19/23 22:40 Oxygen Flow Rate 3 01/10/23 18:20 BMI result Body Mass Index 24.2 Const: Other: General:? awake, alert, no acute distress neck supple GI:? abdomen softnon tender bowel sounds audible Skin: No rash, Oates in place Neuro:? motor grossly intact extremities normal examination Psych:? poor insight Objective Data Active Medications Acetaminophen (Acetaminophen 325 Mg Tablet) 975 mg PO Q6H [facility] Last Admin: 02/21/23 11:41 Dose: 975 mg Documented By: NONA Amlodipine Besylate (Amlodipine Besylate 5 Mg Tablet) 5 mg PO DAILY [facility]; Protocol Last Admin: 02/21/23 08:01 Dose: 5 mg Documented By: NONA Apixaban (Apixaban 2.5 Mg Tablet) 2.5 mg PO BID [facility] Last Admin: 02/21/23 08:01 Dose: 2.5 mg Documented By: NONA Bicalutamide (Bicalutamide 50 Mg Tablet) 50 mg PO TID [facility] Last Admin: 02/21/23 08:02 Dose: 50 mg Documented By: NONA Docusate Sodium (Docusate Sodium 100 Mg Capsule) 100 mg PO DAILY PRN PRN Reason: Constipation Last Admin: 01/05/23 08:05 Dose: 100 mg Documented By: MIKE Finasteride (Finasteride 5 Mg Tablet) 5 mg PO DAILY [facility] Last Admin: 02/21/23 08:02 Dose: 5 mg Documented By: NONA Gabapentin (Gabapentin 100 Mg Capsule) 100 mg PO BID [facility] Last Admin: 02/21/23 08:01 Dose: 100 mg Documented By: NONA Glucose (Glucose Gel 15 Gm Gel..Gram.) 15 gm PO Q15M PRN; Protocol PRN Reason: per Hypoglycemia Standing Ord. Dextrose (D10) 250 mls @ 750 mls/hr IV Q15M PRN; Protocol PRN Reason: per Hypoglycemia Standing Ord. Insulin Human Lispro (Insulin Lispro 100 Unit/Ml 3 Ml Vial) 0 unit SUBCUT QIDACHS [facility]; Protocol Last Admin: 02/21/23 11:41 Dose: 4 unit Documented By: NONA Metformin HCl (Metformin Hcl Er 500 Mg Tab.Er.24h) 2,000 mg PO DAILY [facility] Last Admin: 02/21/23 08:01 Dose: 2,000 mg Documented By: ONNA Metoprolol Tartrate (Metoprolol Tartrate 25 Mg Tablet) 25 mg PO BID [facility]; Protocol Last Admin: 02/21/23 08:01 Dose: 25 mg Documented By: NONA Olanzapine (Olanzapine 10 Mg Vial) 5 mg IM DAILY PRN PRN Reason: agitation Olanzapine (Olanzapine 2.5 Mg Tablet) 2.5 mg PO Q4H PRN PRN Reason: Delirium Last Admin: 02/15/23 03:35 Dose: 2.5 mg Documented By: HEIDI Olanzapine (Olanzapine 2.5 Mg Tablet) 2.5 mg PO DAILY [facility] Last Admin: 02/21/23 08:01 Dose: 2.5 mg Documented By: NONA Ondansetron HCl (Ondansetron Hcl 4 Mg/2 Ml Vial) 4 mg IVPUSH Q8H PRN PRN Reason: Nausea and Vomiting Ondansetron HCl (Ondansetron Hcl 4 Mg/2 Ml Vial) 4 mg IVPUSH ONCE PRN PRN Reason: Nausea and Vomiting Oxycodone HCl (Oxycodone Hcl Immed Release 5 Mg Tablet) 5 mg PO Q6H PRN PRN Reason: Pain, Severe (Pain Scale 7-10) Last Admin: 02/20/23 20:21 Dose: 5 mg Documented By: LEE ANN Oxycodone HCl (Oxycodone Hcl Immed Release 5 Mg Tablet) 5 mg PO Q6H PRN PRN Reason: Pain, Severe (Pain Scale 7-10) Pharmacy Consult (Consult Rx Perform Med Rec) 1 each MISCELLANE ONCE PRN PRN Reason: Consult order Pravastatin Sodium (Pravastatin Sodium 40 Mg Tablet) 40 mg PO BEDTIME [facility] Last Admin: 02/20/23 20:21 Dose: 40 mg Documented By: LEE ANN Sodium Chloride (0.9 % Sodium Chloride Flush 3 Ml Syringe) 3 ml IVFLUSH QSHIFT [facility] Last Admin: 02/21/23 08:02 Dose: Not Given Documented By: NONA Non-Admin Reason: No Access Tamsulosin HCl (Tamsulosin Hcl 0.4 Mg Capsule) 0.8 mg PO DAILY [facility] Last Admin: 02/21/23 08:01 Dose: 0.8 mg Documented By: NONA Labs 02/16/23 06:24 02/16/23 06:24 Labs: Laboratory Results - last 24 hr 02/20/23 02/20/23 02/21/23 16:03 20:01 07:17 POC Glucose 91 151 H 175 H 02/21/23 11:24 POC Glucose 209 H Assessment and Plan (1) Diabetes type 2, controlled: Status: Acute (2) Prostate cancer: Status: Acute (3) Cognitive disorder: Status: Acute (4) Metastasis to bone: Status: Acute Plan 82-year-old male with a PMH significant for recently diagnosed?AFib on Eliquis, [id number] diabetes, and enlarged prostate who presented to the ED with?generalized weakness.? Patient recently presented to the emergency room 5 days prior on 12/26/2022 for evaluation of lower back pain.? Patient was found to have new onset AFib with RVR and a likely UTI.? CT scan of abdomen and pelvis found a marked heterogeneous enlargement the prostate gland with asymmetric nodular thickening of the left seminal vesicle concerning for primary malignancy.? 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 acute hypoxic respiratory failure 2/2 LLL atelactasis reolved ?Paroxysmal afib with rvr ?rate control, continue metoprolol and Eliquis Metabolic encephalopathy ( acute delirium in backdrop of chronic dementia) likely natural progression of dementia patient lacks capacity to make most medical decisions and unlikely to be able to live safely independently(psychiatry) awaiting placement(insurance pending) ANTONELLA on CKD II resolved after Oates placement failed voiding trial,oates replaced acute on chronic anemia Hb 10.7 with hematocrit 31.6 is stable DMI ?acceptable control on metformin and lispro correctional scale, few high blood pressure reading was paroxysmal afib ?Eliquis, lopressor ?full code dvt prophylaxis - on eliquis ?Requires continued hospitalization: pending safe discharge to SNF (awaiting bed) Time Spent With Patient Time: Total time managing care of this patient today ____ minutes. Quality Stroke Does the patient have a stroke diagnosis?: No VTE Prior VTE?: No VTE Risk Level:: Medical - moderate - high VTE Device Contraindication: Treatment Not Indicated VTE Drug Contraindication: N/A - Med Ordered
--- NOTE | 2023-02-21 13:39 | MHC.CM.PN ---
per rounds pt ready for dc awaiting [facility] completion
[2023-02-21 15:00] VITALS: BP 142/63; PULSE 78; RESP 18; TEMP 36.3; O2SAT 98
--- NOTE | 2023-02-21 15:54 | MHC.CLN ---
F/U STAGE II TO COCCYX. DIET=DIABETIC 2000 KCALS. ENSURE MAX TID PROVIDES ADDITIONAL 450 KCALS, 90 G PROTEIN TO PROMOTE WOUND HEALING. DIET AND SUPPLEMENT APPROPRIATE. CONTINUES WITH USUALLY GOOD INTAKE AT MEALS, WITH MOST 100%. DX PROSTATE CANCER WITH METS TO BONE. FOLLOW FOR INTAKE AND WOUND HEALING.
[2023-02-21] MEDS: oxyCODONE HCl Immed Release 5 MG TABLET PO ×2 (16:01→23:39)
[2023-02-21 16:07] LABS: Glucose, Whole Blood 113 mg/dL (60-115)
[2023-02-21 19:38] VITALS: BP 122/59; PULSE 86; RESP 18; TEMP 36.1; O2SAT 98
[2023-02-21] MEDS: Pravastatin Sodium 40 MG TABLET PO (20:09)
[2023-02-21 21:07] LABS: Glucose, Whole Blood 156 mg/dL (60-115)
[2023-02-22 03:59] VITALS: BP 112/59; PULSE 70; RESP 18; TEMP 36.6; O2SAT 98
[2023-02-22] MEDS: Acetaminophen 325 MG TABLET 975 MG PO ×4 (05:59→23:37)
[2023-02-22 07:48] LABS: Glucose, Whole Blood 183 mg/dL (60-115)
[2023-02-22 08:00] VITALS: BP 114/56; PULSE 84; RESP 20; TEMP 36.1; O2SAT 98
[2023-02-22] MEDS: Tamsulosin HCL 0.4 MG CAPSULE 0.8 MG PO (08:07)
[2023-02-22] MEDS: Bicalutamide 50 MG TABLET PO ×3 (08:07→20:04)
[2023-02-22] MEDS: Finasteride 5 MG TABLET PO (08:07)
[2023-02-22] MEDS: Insulin Lispro 100 UNIT/ML 3 ML VIAL SUBCUT ×2 (08:07→16:52)
[2023-02-22] MEDS: Apixaban 2.5 MG TABLET PO ×2 (08:07→20:04)
[2023-02-22] MEDS: metFORMIN HCl ER 500 MG TAB.ER.24H 2000 MG PO (08:07)
[2023-02-22] MEDS: OLANZapine 2.5 MG TABLET PO (08:08)
[2023-02-22] MEDS: Gabapentin 100 MG CAPSULE PO ×2 (08:08→20:04)
[2023-02-22] MEDS: amLODIPine Besylate 5 MG TABLET PO (08:08)
[2023-02-22] MEDS: Metoprolol Tartrate 25 MG TABLET PO ×2 (08:08→20:04)
--- NOTE | 2023-02-22 09:58 | HO.PM.IMPN ---
Subjective Subjective Date of Service: 02/22/23 Interval History: Seen and evaluated this morning sitting in his bed Pain under fair control Review of Systems Review of Systems: Yes all other systems are reviewed and are negative Physical Exam Vital Signs: Vital Signs: Last Vital Signs Temp 97.0 F 02/22/23 08:00 Pulse 84 02/22/23 08:00 Resp 20 02/22/23 08:00 BP 114/56 L 02/22/23 08:00 Pulse Ox 98 02/22/23 08:00 O2 Del Method Room Air 02/22/23 08:00 O2 Flow Rate 2 01/19/23 22:40 Oxygen Flow Rate 3 01/10/23 18:20 BMI result Body Mass Index 24.2 Const: Other: General: AO X 2, no acute distress GI: +BS, NT, no distention Skin: No rash, Oates in place Neuro:? motor grossly intact Psych: appropriate affect Objective Data Active Medications Acetaminophen (Acetaminophen 325 Mg Tablet) 975 mg PO Q6H [facility] Last Admin: 02/22/23 05:59 Dose: 975 mg Documented By: GRIS Amlodipine Besylate (Amlodipine Besylate 5 Mg Tablet) 5 mg PO DAILY [facility]; Protocol Last Admin: 02/22/23 08:08 Dose: 5 mg Documented By: MACKENZIE Apixaban (Apixaban 2.5 Mg Tablet) 2.5 mg PO BID [facility] Last Admin: 02/22/23 08:07 Dose: 2.5 mg Documented By: MACKENZIE Bicalutamide (Bicalutamide 50 Mg Tablet) 50 mg PO TID [facility] Last Admin: 02/22/23 08:07 Dose: 50 mg Documented By: MACKENZIE Docusate Sodium (Docusate Sodium 100 Mg Capsule) 100 mg PO DAILY PRN PRN Reason: Constipation Last Admin: 01/05/23 08:05 Dose: 100 mg Documented By: MIKE Finasteride (Finasteride 5 Mg Tablet) 5 mg PO DAILY [facility] Last Admin: 02/22/23 08:07 Dose: 5 mg Documented By: MACKENZIE Gabapentin (Gabapentin 100 Mg Capsule) 100 mg PO BID [facility] Last Admin: 02/22/23 08:08 Dose: 100 mg Documented By: MACKENZIE Glucose (Glucose Gel 15 Gm Gel..Gram.) 15 gm PO Q15M PRN; Protocol PRN Reason: per Hypoglycemia Standing Ord. Dextrose (D10) 250 mls @ 750 mls/hr IV Q15M PRN; Protocol PRN Reason: per Hypoglycemia Standing Ord. Insulin Human Lispro (Insulin Lispro 100 Unit/Ml 3 Ml Vial) 0 unit SUBCUT QIDACHS [facility]; Protocol Last Admin: 02/22/23 08:07 Dose: 2 unit Documented By: MACKENZIE Metformin HCl (Metformin Hcl Er 500 Mg Tab.Er.24h) 2,000 mg PO DAILY [facility] Last Admin: 02/22/23 08:07 Dose: 2,000 mg Documented By: MACKENZIE Metoprolol Tartrate (Metoprolol Tartrate 25 Mg Tablet) 25 mg PO BID [facility]; Protocol Last Admin: 02/22/23 08:08 Dose: 25 mg Documented By: MACKENZIE Olanzapine (Olanzapine 10 Mg Vial) 5 mg IM DAILY PRN PRN Reason: agitation Olanzapine (Olanzapine 2.5 Mg Tablet) 2.5 mg PO Q4H PRN PRN Reason: Delirium Last Admin: 02/15/23 03:35 Dose: 2.5 mg Documented By: HEIDI Olanzapine (Olanzapine 2.5 Mg Tablet) 2.5 mg PO DAILY [facility] Last Admin: 02/22/23 08:08 Dose: 2.5 mg Documented By: MACKENZIE Ondansetron HCl (Ondansetron Hcl 4 Mg/2 Ml Vial) 4 mg IVPUSH Q8H PRN PRN Reason: Nausea and Vomiting Ondansetron HCl (Ondansetron Hcl 4 Mg/2 Ml Vial) 4 mg IVPUSH ONCE PRN PRN Reason: Nausea and Vomiting Oxycodone HCl (Oxycodone Hcl Immed Release 5 Mg Tablet) 5 mg PO Q6H PRN PRN Reason: Pain, Severe (Pain Scale 7-10) Last Admin: 02/21/23 23:39 Dose: 5 mg Documented By: GRIS Pharmacy Consult (Consult Rx Perform Med Rec) 1 each MISCELLANE ONCE PRN PRN Reason: Consult order Pravastatin Sodium (Pravastatin Sodium 40 Mg Tablet) 40 mg PO BEDTIME [facility] Last Admin: 02/21/23 20:09 Dose: 40 mg Documented By: GRIS Sodium Chloride (0.9 % Sodium Chloride Flush 3 Ml Syringe) 3 ml IVFLUSH QSHIFT [facility] Last Admin: 02/22/23 07:59 Dose: Not Given Documented By: MACKENZIE Non-Admin Reason: No Access Tamsulosin HCl (Tamsulosin Hcl 0.4 Mg Capsule) 0.8 mg PO DAILY [facility] Last Admin: 02/22/23 08:07 Dose: 0.8 mg Documented By: MACKENZIE Labs 02/16/23 06:24 02/16/23 06:24 Labs: Laboratory Results - last 24 hr 02/21/23 02/21/23 02/21/23 11:24 16:04 20:53 POC Glucose 209 H 113 156 H 02/22/23 07:44 POC Glucose 183 H Assessment and Plan (1) Pain due to malignant neoplasm metastatic to bone: Status: Acute Plan 82-year-old male with a PMH significant for recently diagnosed?AFib on Eliquis, [id number] diabetes, and enlarged prostate who presented to the ED with?generalized weakness.? Patient recently presented to the emergency room 5 days prior on 12/26/2022 for evaluation of lower back pain.? Patient was found to have new onset AFib with RVR and a likely UTI.? CT scan of abdomen and pelvis found a marked heterogeneous enlargement the prostate gland with asymmetric nodular thickening of the left seminal vesicle concerning for primary malignancy.? 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 acute hypoxic respiratory failure 2/2 LLL atelactasis reolved ?Paroxysmal afib with rvr ?rate control, continue metoprolol and Eliquis Metabolic encephalopathy ( acute delirium in backdrop of chronic dementia) likely natural progression of dementia patient lacks capacity to make most medical decisions and unlikely to be able to live safely independently(psychiatry) awaiting placement(insurance pending) ANTONELLA on CKD II resolved after Oates placement failed voiding trial,oates replaced acute on chronic anemia Hb 10.7 with hematocrit 31.6 is stable DMI ?acceptable control on metformin and lispro correctional scale, few high blood pressure reading was paroxysmal afib ?Eliquis, lopressor ?full code dvt prophylaxis - on eliquis ?Requires continued hospitalization: pending safe discharge to SNF (awaiting bed) Time Spent With Patient Time: Total time managing care of this patient today ____ minutes. Quality Stroke Does the patient have a stroke diagnosis?: No VTE Prior VTE?: No VTE Risk Level:: Medical - moderate - high VTE Device Contraindication: Treatment Not Indicated VTE Drug Contraindication: N/A - Med Ordered
[2023-02-22 11:32] LABS: Glucose, Whole Blood 135 mg/dL (60-115)
[2023-02-22 15:49] VITALS: BP 132/63; PULSE 91; RESP 20; TEMP 36.9; O2SAT 95
[2023-02-22 16:28] LABS: Glucose, Whole Blood 226 mg/dL (60-115)
[2023-02-22 18:58] VITALS: BP 118/57; PULSE 83; RESP 18; TEMP 36.6; O2SAT 97
[2023-02-22] MEDS: Pravastatin Sodium 40 MG TABLET PO (20:08)
[2023-02-22 20:15] LABS: Glucose, Whole Blood 93 mg/dL (60-115)
[2023-02-23 04:00] VITALS: BP 138/72; PULSE 91; RESP 16; TEMP 36.2; O2SAT 97
[2023-02-23] MEDS: Acetaminophen 325 MG TABLET 975 MG PO ×3 (05:52→17:08)
[2023-02-23 07:07] VITALS: BP 122/59; PULSE 77; RESP 18; TEMP 36.1; O2SAT 97
[2023-02-23 07:11] LABS: Glucose, Whole Blood 238 mg/dL (60-115)
--- NOTE | 2023-02-23 07:21 | P.PNIM_ITS ---
Subjective Subjective Date of Service: 02/23/23 Interval History: Seen and evaluated this morning sitting in his bed Pain under fair control Review of Systems Review of Systems: Yes all other systems are reviewed and are negative Physical Exam Vital Signs: Vital Signs: Last Vital Signs Temp 97 F 02/23/23 07:07 Pulse 77 02/23/23 07:07 Resp 18 02/23/23 07:07 BP 122/59 L 02/23/23 07:07 Pulse Ox 97 02/23/23 07:07 O2 Del Method Room Air 02/23/23 07:07 O2 Flow Rate 2 01/19/23 22:40 Oxygen Flow Rate 3 01/10/23 18:20 BMI result Body Mass Index 24.2 Const: Other: General: AO X 2, no acute distress GI: +BS, NT, no distention Skin: No rash, Oates in place Neuro:? motor grossly intact Psych: appropriate affect Objective Data Active Medications Acetaminophen (Acetaminophen 325 Mg Tablet) 975 mg PO Q6H [facility] Last Admin: 02/23/23 05:52 Dose: 975 mg Documented By: GRIS Amlodipine Besylate (Amlodipine Besylate 5 Mg Tablet) 5 mg PO DAILY [facility]; Protocol Last Admin: 02/22/23 08:08 Dose: 5 mg Documented By: MACKENZIE Apixaban (Apixaban 2.5 Mg Tablet) 2.5 mg PO BID [facility] Last Admin: 02/22/23 20:04 Dose: 2.5 mg Documented By: GRIS Bicalutamide (Bicalutamide 50 Mg Tablet) 50 mg PO TID [facility] Last Admin: 02/22/23 20:04 Dose: 50 mg Documented By: GRIS Docusate Sodium (Docusate Sodium 100 Mg Capsule) 100 mg PO DAILY PRN PRN Reason: Constipation Last Admin: 01/05/23 08:05 Dose: 100 mg Documented By: MIKE Finasteride (Finasteride 5 Mg Tablet) 5 mg PO DAILY [facility] Last Admin: 02/22/23 08:07 Dose: 5 mg Documented By: MACKENZIE Gabapentin (Gabapentin 100 Mg Capsule) 100 mg PO BID [facility] Last Admin: 02/22/23 20:04 Dose: 100 mg Documented By: GRIS Glucose (Glucose Gel 15 Gm Gel..Gram.) 15 gm PO Q15M PRN; Protocol PRN Reason: per Hypoglycemia Standing Ord. Dextrose (D10) 250 mls @ 750 mls/hr IV Q15M PRN; Protocol PRN Reason: per Hypoglycemia Standing Ord. Insulin Human Lispro (Insulin Lispro 100 Unit/Ml 3 Ml Vial) 0 unit SUBCUT QIDACHS [facility]; Protocol Last Admin: 02/22/23 20:28 Dose: Not Given Documented By: GRIS Non-Admin Reason: No Insulin Coverage Metformin HCl (Metformin Hcl Er 500 Mg Tab.Er.24h) 2,000 mg PO DAILY [facility] Last Admin: 02/22/23 08:07 Dose: 2,000 mg Documented By: MACKENZIE Metoprolol Tartrate (Metoprolol Tartrate 25 Mg Tablet) 25 mg PO BID [facility]; Protocol Last Admin: 02/22/23 20:04 Dose: 25 mg Documented By: GRIS Olanzapine (Olanzapine 10 Mg Vial) 5 mg IM DAILY PRN PRN Reason: agitation Olanzapine (Olanzapine 2.5 Mg Tablet) 2.5 mg PO Q4H PRN PRN Reason: Delirium Last Admin: 02/15/23 03:35 Dose: 2.5 mg Documented By: HEIDI Olanzapine (Olanzapine 2.5 Mg Tablet) 2.5 mg PO DAILY [facility] Last Admin: 02/22/23 08:08 Dose: 2.5 mg Documented By: MACKENZIE Ondansetron HCl (Ondansetron Hcl 4 Mg/2 Ml Vial) 4 mg IVPUSH Q8H PRN PRN Reason: Nausea and Vomiting Ondansetron HCl (Ondansetron Hcl 4 Mg/2 Ml Vial) 4 mg IVPUSH ONCE PRN PRN Reason: Nausea and Vomiting Oxycodone HCl (Oxycodone Hcl Immed Release 5 Mg Tablet) 5 mg PO Q6H PRN PRN Reason: Pain, Severe (Pain Scale 7-10) Last Admin: 02/21/23 23:39 Dose: 5 mg Documented By: GRIS Pharmacy Consult (Consult Rx Perform Med Rec) 1 each MISCELLANE ONCE PRN PRN Reason: Consult order Pravastatin Sodium (Pravastatin Sodium 40 Mg Tablet) 40 mg PO BEDTIME [facility] Last Admin: 02/22/23 20:08 Dose: 40 mg Documented By: GRIS Sodium Chloride (0.9 % Sodium Chloride Flush 3 Ml Syringe) [facility] Admin: 02/22/23 22:57 Dose: Not Given Documented By: GRIS Non-Admin Reason: No Access Tamsulosin HCl (Tamsulosin Hcl 0.4 Mg Capsule) 0.8 mg PO DAILY [facility] Last Admin: 02/22/23 08:07 Dose: 0.8 mg Documented By: MACKENZIE Labs 02/16/23 06:24 02/16/23 06:24 Labs: Laboratory Results - last 24 hr 02/22/23 02/22/23 02/22/23 07:44 11:29 16:09 POC Glucose 183 H 135 H 226 H 02/22/23 02/23/23 19:54 07:08 POC Glucose 93 238 H Assessment and Plan (1) Pain due to malignant neoplasm metastatic to bone: Status: Acute Plan 82-year-old male with a PMH significant for recently diagnosed?AFib on Eliquis, [id number] diabetes, and enlarged prostate who presented to the ED with?generalized weakness.? Patient recently presented to the emergency room 5 days prior on 12/26/2022 for evaluation of lower back pain.? Patient was found to have new onset AFib with RVR and a likely UTI.? CT scan of abdomen and pelvis found a marked heterogeneous enlargement the prostate gland with asymmetric nodular thickening of the left seminal vesicle concerning for primary malignancy.? 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 acute hypoxic respiratory failure 2/2 LLL atelactasis reolved ?Paroxysmal afib with rvr ?rate control, continue metoprolol and Eliquis Metabolic encephalopathy ( acute delirium in backdrop of chronic dementia) likely natural progression of dementia patient lacks capacity to make most medical decisions and unlikely to be able to live safely independently(psychiatry) awaiting placement(insurance pending) ANTONELLA on CKD II resolved after Oates placement failed voiding trial,oates replaced acute on chronic anemia Hb 10.7 with hematocrit 31.6 is stable DMI ?acceptable control on metformin and lispro correctional scale, few high blood pressure reading was paroxysmal afib ?Eliquis, lopressor DNR/DNI dvt prophylaxis - on eliquis ?Requires continued hospitalization: pending safe discharge to SNF (awaiting bed) Time Spent With Patient Time: Total time managing care of this patient today ____ minutes. Quality Stroke Does the patient have a stroke diagnosis?: No VTE Prior VTE?: No VTE Risk Level:: Medical - moderate - high VTE Device Contraindication: Treatment Not Indicated VTE Drug Contraindication: N/A - Med Ordered
[2023-02-23] MEDS: Insulin Lispro 100 UNIT/ML 3 ML VIAL SUBCUT (08:31)
[2023-02-23] MEDS: Gabapentin 100 MG CAPSULE PO ×2 (08:32→22:20)
[2023-02-23] MEDS: OLANZapine 2.5 MG TABLET PO (08:32)
[2023-02-23] MEDS: Metoprolol Tartrate 25 MG TABLET PO ×2 (08:32→22:20)
[2023-02-23] MEDS: Finasteride 5 MG TABLET PO (08:32)
[2023-02-23] MEDS: metFORMIN HCl ER 500 MG TAB.ER.24H 2000 MG PO (08:32)
[2023-02-23] MEDS: amLODIPine Besylate 5 MG TABLET PO (08:32)
[2023-02-23] MEDS: Apixaban 2.5 MG TABLET PO ×2 (08:32→22:21)
[2023-02-23] MEDS: Bicalutamide 50 MG TABLET PO ×3 (08:32→22:21)
[2023-02-23] MEDS: Tamsulosin HCL 0.4 MG CAPSULE 0.8 MG PO (08:32)
[2023-02-23 09:04] LABS: Creatinine Clr Calc Pharmacy 40.6; Estimated Glomerular Filt Rate 56
[2023-02-23 11:03] LABS: Glucose, Whole Blood 64 mg/dL (60-115)
[2023-02-23 11:47] LABS: Glucose, Whole Blood 78 mg/dL (60-115)
--- NOTE | 2023-02-23 11:48 | PC.NURSE ---
Pt lunchtime POC 64, pt refused to drink juice. Pt willing to drink gingerale. pt drank 7.5 fluid oz of gingerale (21g of carbs). Repeat POC 78.
--- NOTE | 2023-02-23 14:38 | MHC.CM.PN ---
[employer] jayden pending location of a la bed for pt once located a [employer] numvber will be issued pt ready for dc
[2023-02-23 16:00] VITALS: BP 133/63; PULSE 78; RESP 16; TEMP 36.2; O2SAT 98
[2023-02-23 16:28] LABS: Glucose, Whole Blood 120 mg/dL (60-115)
[2023-02-23 20:00] VITALS: BP 119/68; PULSE 87; RESP 16; TEMP 36.3; O2SAT 97
[2023-02-23 20:27] LABS: Glucose, Whole Blood 155 mg/dL (60-115)
[2023-02-23] MEDS: Pravastatin Sodium 40 MG TABLET PO (22:20)
[2023-02-24 03:49] VITALS: BP 112/56; PULSE 68; RESP 16; TEMP 36.3; O2SAT 94
[2023-02-24 06:56] VITALS: BP 152/90; PULSE 101; RESP 19; TEMP 36.3; O2SAT 95
[2023-02-24 07:25] LABS: Glucose, Whole Blood 102 mg/dL (60-115)
[2023-02-24] MEDS: Tamsulosin HCL 0.4 MG CAPSULE 0.8 MG PO (08:04)
[2023-02-24] MEDS: Finasteride 5 MG TABLET PO (08:04)
[2023-02-24] MEDS: Bicalutamide 50 MG TABLET PO ×3 (08:04→20:55)
[2023-02-24] MEDS: Gabapentin 100 MG CAPSULE PO ×2 (08:10→20:55)
[2023-02-24] MEDS: metFORMIN HCl ER 500 MG TAB.ER.24H 2000 MG PO (08:10)
[2023-02-24] MEDS: Metoprolol Tartrate 25 MG TABLET PO ×2 (08:10→20:55)
[2023-02-24] MEDS: amLODIPine Besylate 5 MG TABLET PO (08:10)
[2023-02-24] MEDS: Apixaban 2.5 MG TABLET PO ×2 (08:10→20:55)
[2023-02-24] MEDS: OLANZapine 2.5 MG TABLET PO (08:11)
--- NOTE | 2023-02-24 09:36 | P.PNIM_ITS ---
Subjective Subjective Date of Service: 02/24/23 Interval History: no complaints Physical Exam Vital Signs: Vital Signs: Last Vital Signs Temp 97.4 F 02/24/23 06:56 Pulse 101 H 02/24/23 06:56 Resp 19 02/24/23 06:56 BP 152/90 H 02/24/23 06:56 Pulse Ox 95 02/24/23 06:56 O2 Del Method Room Air 02/24/23 06:56 O2 Flow Rate 94 02/24/23 03:49 Oxygen Flow Rate 3 01/10/23 18:20 BMI result Body Mass Index 24.2 Const: Other: General: AO X 2, no acute distress GI: +BS, NT, no distention Skin: No rash, Oates in place Neuro:? motor grossly intact Psych: appropriate affect Objective Data Active Medications Acetaminophen (Acetaminophen 325 Mg Tablet) 975 mg PO Q6H [facility] Last Admin: 02/24/23 04:05 Dose: Not Given Documented By: ARELIS Non-Admin Reason: Patient Refused Amlodipine Besylate (Amlodipine Besylate 5 Mg Tablet) 5 mg PO DAILY [facility]; Protocol Last Admin: 02/24/23 08:10 Dose: 5 mg Documented By: RONALDO Apixaban (Apixaban 2.5 Mg Tablet) 2.5 mg PO BID [facility] Last Admin: 02/24/23 08:10 Dose: 2.5 mg Documented By: RONALDO Bicalutamide (Bicalutamide 50 Mg Tablet) 50 mg PO TID [facility] Last Admin: 02/24/23 08:04 Dose: 50 mg Documented By: RONALDO Docusate Sodium (Docusate Sodium 100 Mg Capsule) 100 mg PO DAILY PRN PRN Reason: Constipation Last Admin: 01/05/23 08:05 Dose: 100 mg Documented By: MIKE Finasteride (Finasteride 5 Mg Tablet) 5 mg PO DAILY [facility] Last Admin: 02/24/23 08:04 Dose: 5 mg Documented By: RONALDO Gabapentin (Gabapentin 100 Mg Capsule) 100 mg PO BID [facility] Last Admin: 02/24/23 08:10 Dose: 100 mg Documented By: RONALDO Glucose (Glucose Gel 15 Gm Gel..Gram.) 15 gm PO Q15M PRN; Protocol PRN Reason: per Hypoglycemia Standing Ord. Dextrose (D10) 250 mls @ 750 mls/hr IV Q15M PRN; Protocol PRN Reason: per Hypoglycemia Standing Ord. Insulin Human Lispro (Insulin Lispro 100 Unit/Ml 3 Ml Vial) 0 unit SUBCUT QIDACHS [facility]; Protocol Last Admin: 02/24/23 07:31 Dose: Not Given Documented By: RONALDO Non-Admin Reason: No Insulin Coverage Metformin HCl (Metformin Hcl Er 500 Mg Tab.Er.24h) 2,000 mg PO DAILY [facility] Last Admin: 02/24/23 08:10 Dose: 2,000 mg Documented By: RONALDO Metoprolol Tartrate (Metoprolol Tartrate 25 Mg Tablet) 25 mg PO BID [facility]; Pr otocol Last Admin: 02/24/23 08:10 Dose: 25 mg Documented By: RONALDO Olanzapine (Olanzapine 10 Mg Vial) 5 mg IM DAILY PRN PRN Reason: agitation Olanzapine (Olanzapine 2.5 Mg Tablet) 2.5 mg PO Q4H PRN PRN Reason: Delirium Last Admin: 02/15/23 03:35 Dose: 2.5 mg Documented By: HEIDI Olanzapine (Olanzapine 2.5 Mg Tablet) 2.5 mg PO DAILY [facility] Last Admin: 02/24/23 08:11 Dose: 2.5 mg Documented By: RONALDO Ondansetron HCl (Ondansetron Hcl 4 Mg/2 Ml Vial) 4 mg IVPUSH Q8H PRN PRN Reason: Nausea and Vomiting Ondansetron HCl (Ondansetron Hcl 4 Mg/2 Ml Vial) 4 mg IVPUSH ONCE PRN PRN Reason: Nausea and Vomiting Oxycodone HCl (Oxycodone Hcl Immed Release 5 Mg Tablet) 5 mg PO Q6H PRN PRN Reason: Pain, Severe (Pain Scale 7-10) Last Admin: 02/21/23 23:39 Dose: 5 mg Documented By: GRIS Pharmacy Consult (Consult Rx Perform Med Rec) 1 each MISCELLANE ONCE PRN PRN Reason: Consult order Pravastatin Sodium (Pravastatin Sodium 40 Mg Tablet) 40 mg PO BEDTIME [facility] Last Admin: 02/23/23 22:20 Dose: 40 mg Documented By: ARELIS Sodium Chloride (0.9 % Sodium Chloride Flush 3 Ml Syringe) 3 ml IVFLUSH QSHIFT [facility] Last Admin: 02/24/23 07:58 Dose: Not Given Documented By: RONALDO Non-Admin Reason: No Access Tamsulosin HCl (Tamsulosin Hcl 0.4 Mg Capsule) 0.8 mg PO DAILY [facility] Last Admin: 02/24/23 08:04 Dose: 0.8 mg Documented By: RONALDO Labs 02/16/23 06:24 02/23/23 08:20 Labs: Laboratory Results - last 24 hr 02/23/23 02/23/23 02/23/23 10:58 11:45 16:16 POC Glucose 64 78 120 H 02/23/23 02/24/23 20:23 06:54 POC Glucose 155 H 102 Assessment and Plan (1) Pain due to malignant neoplasm metastatic to bone: Status: Acute Plan 82-year-old male with a PMH significant for recently diagnosed?AFib on Eliquis, iip-[id number] diabetes, and enlarged prostate who presented to the ED with?generalized weakness.? Patient recently presented to the emergency room 5 days prior on 12/26/2022 for evaluation of lower back pain.? Patient was found to have new onset AFib with RVR and a likely UTI.? CT scan of abdomen and pelvis found a marked heterogeneous enlargement the prostate gland with asymmetric nodular thickening of the left seminal vesicle concerning for primary malignancy.? 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 acute hypoxic respiratory failure 2/2 LLL atelactasis reolved ?Paroxysmal afib with rvr ?rate control, continue metoprolol and Eliquis Metabolic encephalopathy ( acute delirium in backdrop of chronic dementia) likely natural progression of dementia patient lacks capacity to make most medical decisions and unlikely to be able to live safely independently(psychiatry) awaiting placement(insurance pending) ANTONELLA on CKD II resolved after Oates placement failed voiding trial,oates replaced acute on chronic anemia Hb 10.7 with hematocrit 31.6 is stable DMI ?acceptable control on metformin and lispro correctional scale, few high blood pressure reading was paroxysmal afib ?Tatyana, lopressor DNR/DNI dvt prophylaxis - on eliquis ?Requires continued hospitalization: pending safe discharge to SNF (awaiting bed) Time Spent With Patient Time: Total time managing care of this patient today ____ minutes. Quality Stroke Does the patient have a stroke diagnosis?: No VTE Prior VTE?: No VTE Risk Level:: Medical - moderate - high VTE Device Contraindication: Treatment Not Indicated VTE Drug Contraindication: N/A - Med Ordered
[2023-02-24 11:00] LABS: Glucose, Whole Blood 234 mg/dL (60-115)
[2023-02-24] MEDS: Insulin Lispro 100 UNIT/ML 3 ML VIAL SUBCUT ×2 (11:45→20:55)
[2023-02-24] MEDS: Acetaminophen 325 MG TABLET 975 MG PO ×2 (11:45→17:29)
[2023-02-24 16:00] VITALS: BP 139/63; PULSE 77; RESP 18; TEMP 36.4; O2SAT 97
[2023-02-24 16:34] LABS: Glucose, Whole Blood 75 mg/dL (60-115)
[2023-02-24 20:00] VITALS: BP 124/58; PULSE 89; RESP 16; TEMP 36.1; O2SAT 99
[2023-02-24 20:20] LABS: Glucose, Whole Blood 220 mg/dL (60-115)
[2023-02-24] MEDS: Pravastatin Sodium 40 MG TABLET PO (20:54)
[2023-02-25 00:10] VITALS: BP 140/80; PULSE 69; RESP 16; TEMP 36.2; O2SAT 97
[2023-02-25 06:54] VITALS: BP 152/69; PULSE 72; RESP 18; TEMP 36.6; O2SAT 96
[2023-02-25 07:02] LABS: Glucose, Whole Blood 102 mg/dL (60-115)
--- NOTE | 2023-02-25 08:51 | HO.PM.IMPN ---
Subjective Subjective Date of Service: 02/25/23 Interval History: no complaints Physical Exam Vital Signs: Vital Signs: Last Vital Signs Temp 98 F 02/25/23 06:54 Pulse 72 02/25/23 06:54 Resp 18 02/25/23 06:54 BP 152/69 H 02/25/23 06:54 Pulse Ox 96 02/25/23 06:54 O2 Del Method Room Air 02/25/23 06:54 O2 Flow Rate 94 02/24/23 03:49 Oxygen Flow Rate 3 01/10/23 18:20 BMI result Body Mass Index 24.2 Const: Other: General: AO X 2, no acute distress GI: +BS, NT, no distention Skin: No rash, Oates in place Neuro:? motor grossly intact Psych: appropriate affect Objective Data Active Medications Acetaminophen (Acetaminophen 325 Mg Tablet) 975 mg PO Q6H [facility] Last Admin: 02/25/23 05:16 Dose: Not Given Documented By: ARELIS Non-Admin Reason: dose amount exceeds Amlodipine Besylate (Amlodipine Besylate 5 Mg Tablet) 5 mg PO DAILY [facility]; Protocol Last Admin: 02/24/23 08:10 Dose: 5 mg Documented By: RONALDO Apixaban (Apixaban 2.5 Mg Tablet) 2.5 mg PO BID [facility] Last Admin: 02/24/23 20:55 Dose: 2.5 mg Documented By: ARELIS Bicalutamide (Bicalutamide 50 Mg Tablet) 50 mg PO TID [facility] Last Admin: 02/24/23 20:55 Dose: 50 mg Documented By: ARELIS Docusate Sodium (Docusate Sodium 100 Mg Capsule) 100 mg PO DAILY PRN PRN Reason: Constipation Last Admin: 01/05/23 08:05 Dose: 100 mg Documented By: MIKE Finasteride (Finasteride 5 Mg Tablet) 5 mg PO DAILY [facility] Last Admin: 02/24/23 08:04 Dose: 5 mg Documented By: RONALDO Gabapentin (Gabapentin 100 Mg Capsule) 100 mg PO BID [facility] Last Admin: 02/24/23 20:55 Dose: 100 mg Documented By: ARELIS Glucose (Glucose Gel 15 Gm Gel..Gram.) 15 gm PO Q15M PRN; Protocol PRN Reason: per Hypoglycemia Standing Ord. Dextrose (D10) 250 mls @ 750 mls/hr IV Q15M PRN; Protocol PRN Reason: per Hypoglycemia Standing Ord. Insulin Human Lispro (Insulin Lispro 100 Unit/Ml 3 Ml Vial) 0 unit SUBCUT QIDACHS [facility]; Protocol Last Admin: 02/25/23 07:23 Dose: Not Given Documented By: FLORINDA Non-Admin Reason: See Note Metformin HCl (Metformin Hcl Er 500 Mg Tab.Er.24h) 2,000 mg PO DAILY [facility] Last Admin: 02/24/23 08:10 Dose: 2,000 mg Documented By: RONALDO Metoprolol Tartrate (Metoprolol Tartrate 25 Mg Tablet) 25 mg PO BID [facility]; Protocol Last Admin: 02/24/23 20:55 Dose: 25 mg Documented By: ARELIS Olanzapine (Olanzapine 10 Mg Vial) 5 mg IM DAILY PRN PRN Reason: agitation Olanzapine (Olanzapine 2.5 Mg Tablet) 2.5 mg PO Q4H PRN PRN Reason: Delirium Last Admin: 02/15/23 03:35 Dose: 2.5 mg Documented By: HEIDI Olanzapine (Olanzapine 2.5 Mg Tablet) 2.5 mg PO DAILY [facility] Last Admin: 02/24/23 08:11 Dose: 2.5 mg Documented By: RONALDO Ondansetron HCl (Ondansetron Hcl 4 Mg/2 Ml Vial) 4 mg IVPUSH Q8H PRN PRN Reason: Nausea and Vomiting Ondansetron HCl (Ondansetron Hcl 4 Mg/2 Ml Vial) 4 mg IVPUSH ONCE PRN PRN Reason: Nausea and Vomiting Pharmacy Consult (Consult Rx Perform Med Rec) 1 each MISCELLANE ONCE PRN PRN Reason: Consult order Pravastatin Sodium (Pravastatin Sodium 40 Mg Tablet) 40 mg PO BEDTIME [facility] Last Admin: 02/24/23 20:54 Dose: 40 mg Documented By: ARELIS Sodium Chloride (0.9 % Sodium Chloride Flush 3 Ml Syringe) 3 ml IVFLUSH QSHIFT [facility] Last Admin: 02/25/23 07:23 Dose: Not Given Documented By: FLORINDA Non-Admin Reason: See Note Tamsulosin HCl (Tamsulosin Hcl 0.4 Mg Capsule) 0.8 mg PO DAILY [facility] Last Admin: 02/24/23 08:04 Dose: 0.8 mg Documented By: RONALDO Labs 02/16/23 06:24 02/23/23 08:20 Labs: Laboratory Results - last 24 hr 02/24/23 02/24/23 02/24/23 10:55 16:22 20:09 POC Glucose 234 H 75 220 H 02/25/23 06:54 POC Glucose 102 Assessment and Plan (1) Pain due to malignant neoplasm metastatic to bone: Status: Acute Plan 82-year-old male with a PMH significant for recently diagnosed?AFib on Eliquis, wtz-gaatqjm-iiqyoghjz diabetes, and enlarged prostate who presented to the ED with?generalized weakness.? Patient recently presented to the emergency room 5 days prior on 12/26/2022 for evaluation of lower back pain.? Patient was found to have new onset AFib with RVR and a likely UTI.? CT scan of abdomen and pelvis found a marked heterogeneous enlargement the prostate gland with asymmetric nodular thickening of the left seminal vesicle concerning for primary malignancy.? 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 acute hypoxic respiratory failure 2/2 LLL atelactasis reolved ?Paroxysmal afib with rvr ?rate control, continue metoprolol and Eliquis Metabolic encephalopathy ( acute delirium in backdrop of chronic dementia) likely natural progression of dementia patient lacks capacity to make most medical decisions and unlikely to be able to live safely independently(psychiatry) awaiting placement(insurance pending) ANTONELLA on CKD II resolved after Oates placement failed voiding trial,oates replaced acute on chronic anemia Hb 10.7 with hematocrit 31.6 is stable DMI ?acceptable control on metformin and lispro correctional scale, few high blood pressure reading was paroxysmal afib ?Eliquis, lopressor DNR/DNI dvt prophylaxis - on eliquis ?Requires continued hospitalization: pending safe discharge to SNF (awaiting bed) Time Spent With Patient Time: Total time managing care of this patient today ____ minutes. Quality Stroke Does the patient have a stroke diagnosis?: No VTE Prior VTE?: No VTE Risk Level:: Medical - moderate - high VTE Device Contraindication: Treatment Not Indicated VTE Drug Contraindication: N/A - Med Ordered
[2023-02-25] MEDS: OLANZapine 2.5 MG TABLET PO (09:00)
[2023-02-25] MEDS: amLODIPine Besylate 5 MG TABLET PO (09:00)
[2023-02-25] MEDS: Gabapentin 100 MG CAPSULE PO ×2 (09:00→21:38)
[2023-02-25] MEDS: Finasteride 5 MG TABLET PO (09:00)
[2023-02-25] MEDS: metFORMIN HCl ER 500 MG TAB.ER.24H 2000 MG PO (09:00)
[2023-02-25] MEDS: Metoprolol Tartrate 25 MG TABLET PO ×2 (09:00→21:38)
[2023-02-25] MEDS: Tamsulosin HCL 0.4 MG CAPSULE 0.8 MG PO (09:00)
[2023-02-25] MEDS: Bicalutamide 50 MG TABLET PO ×3 (09:00→21:39)
[2023-02-25] MEDS: Apixaban 2.5 MG TABLET PO ×2 (09:00→21:38)
[2023-02-25 11:01] LABS: Glucose, Whole Blood 164 mg/dL (60-115)
[2023-02-25] MEDS: Acetaminophen 325 MG TABLET 975 MG PO ×2 (11:08→16:59)
[2023-02-25] MEDS: Insulin Lispro 100 UNIT/ML 3 ML VIAL SUBCUT ×2 (11:09→17:00)
[2023-02-25 15:39] VITALS: BP 120/59; PULSE 71; RESP 16; TEMP 36.2; O2SAT 98
[2023-02-25 16:09] LABS: Glucose, Whole Blood 180 mg/dL (60-115)
[2023-02-25 19:24] VITALS: BP 127/61; PULSE 80; RESP 16; TEMP 36.3; O2SAT 99
[2023-02-25 20:04] LABS: Glucose, Whole Blood 137 mg/dL (60-115)
[2023-02-25] MEDS: Pravastatin Sodium 40 MG TABLET PO (21:38)
[2023-02-25 23:41] VITALS: BP 147/73; PULSE 69; RESP 16; TEMP 36.4; O2SAT 96
[2023-02-26] MEDS: Acetaminophen 325 MG TABLET 975 MG PO ×4 (00:11→23:50)
[2023-02-26 07:15] LABS: Glucose, Whole Blood 158 mg/dL (60-115)
[2023-02-26 07:24] VITALS: BP 131/64; PULSE 67; RESP 16; TEMP 36.2; O2SAT 95
[2023-02-26] MEDS: Insulin Lispro 100 UNIT/ML 3 ML VIAL SUBCUT ×2 (07:32→17:02)
[2023-02-26] MEDS: Tamsulosin HCL 0.4 MG CAPSULE 0.8 MG PO (07:33)
[2023-02-26] MEDS: Bicalutamide 50 MG TABLET PO ×3 (07:33→21:22)
[2023-02-26] MEDS: Metoprolol Tartrate 25 MG TABLET PO ×2 (07:33→21:22)
[2023-02-26] MEDS: Apixaban 2.5 MG TABLET PO ×2 (07:33→21:22)
[2023-02-26] MEDS: Finasteride 5 MG TABLET PO (07:33)
[2023-02-26] MEDS: metFORMIN HCl ER 500 MG TAB.ER.24H 2000 MG PO (07:33)
[2023-02-26] MEDS: amLODIPine Besylate 5 MG TABLET PO (07:33)
[2023-02-26] MEDS: Gabapentin 100 MG CAPSULE PO ×2 (07:33→21:22)
[2023-02-26] MEDS: OLANZapine 2.5 MG TABLET PO (07:34)
--- NOTE | 2023-02-26 09:59 | P.PNIM_ITS ---
Subjective Subjective Date of Service: 02/26/23 Interval History: no complaints Physical Exam Vital Signs: Vital Signs: Last Vital Signs Temp 97.1 F 02/26/23 07:24 Pulse 67 02/26/23 07:24 Resp 16 02/26/23 07:24 BP 131/64 02/26/23 07:24 Pulse Ox 95 02/26/23 07:24 O2 Del Method Room Air 02/26/23 07:24 O2 Flow Rate 94 02/24/23 03:49 Oxygen Flow Rate 3 01/10/23 18:20 BMI result Body Mass Index 24.2 Const: Other: General: AO X 2, no acute distress GI: +BS, NT, no distention Skin: No rash, Oates in place Neuro:? motor grossly intact Psych: appropriate affect Objective Data Active Medications Acetaminophen (Acetaminophen 325 Mg Tablet) 975 mg PO Q6H [facility] Last Admin: 02/26/23 05:57 Dose: Not Given Documented By: PREETI Non-Admin Reason: Patient Asleep Amlodipine Besylate (Amlodipine Besylate 5 Mg Tablet) 5 mg PO DAILY [facility]; Protocol Last Admin: 02/26/23 07:33 Dose: 5 mg Documented By: RONALDO Apixaban (Apixaban 2.5 Mg Tablet) 2.5 mg PO BID [facility] Last Admin: 02/26/23 07:33 Dose: 2.5 mg Documented By: RONALDO Bicalutamide (Bicalutamide 50 Mg Tablet) 50 mg PO TID [facility] Last Admin: 02/26/23 07:33 Dose: 50 mg Documented By: RONALDO Docusate Sodium (Docusate Sodium 100 Mg Capsule) 100 mg PO DAILY PRN PRN Reason: Constipation Last Admin: 01/05/23 08:05 Dose: 100 mg Documented By: MIKE Finasteride (Finasteride 5 Mg Tablet) 5 mg PO DAILY [facility] Last Admin: 02/26/23 07:33 Dose: 5 mg Documented By: RONALDO Gabapentin (Gabapentin 100 Mg Capsule) 100 mg PO BID [facility] Last Admin: 02/26/23 07:33 Dose: 100 mg Documented By: RONALDO Glucose (Glucose Gel 15 Gm Gel..Gram.) 15 gm PO Q15M PRN; Protocol PRN Reason: per Hypoglycemia Standing Ord. Dextrose (D10) 250 mls @ 750 mls/hr IV Q15M PRN; Protocol PRN Reason: per Hypoglycemia Standing Ord. Insulin Human Lispro (Insulin Lispro 100 Unit/Ml 3 Ml Vial) 0 unit SUBCUT QIDACHS [facility]; Protocol Last Admin: 02/26/23 07:32 Dose: 2 unit Documented By: RONALDO Metformin HCl (Metformin Hcl Er 500 Mg Tab.Er.24h) 2,000 mg PO DAILY [facility] Last Admin: 02/26/23 07:33 Dose: 2,000 mg Documented By: RONALDO Metoprolol Tartrate (Metoprolol Tartrate 25 Mg Tablet) 25 mg PO BID [facility]; Protocol Last Admin: 02/26/23 07:33 Dose: 25 mg Documented By: RONALDO Olanzapine (Olanzapine 10 Mg Vial) 5 mg IM DAILY PRN PRN Reason: agitation Olanzapine (Olanzapine 2.5 Mg Tablet) 2.5 mg PO Q4H PRN PRN Reason: Delirium Last Admin: 02/15/23 03:35 Dose: 2.5 mg Documented By: HEIDI Olanzapine (Olanzapine 2.5 Mg Tablet) 2.5 mg PO DAILY [facility] Last Admin: 02/26/23 07:34 Dose: 2.5 mg Documented By: RONALDO Ondansetron HCl (Ondansetron Hcl 4 Mg/2 Ml Vial) 4 mg IVPUSH Q8H PRN PRN Reason: Nausea and Vomiting Ondansetron HCl (Ondansetron Hcl 4 Mg/2 Ml Vial) 4 mg IVPUSH ONCE PRN PRN Reason: Nausea and Vomiting Pharmacy Consult (Consult Rx Perform Med Rec) 1 each MISCELLANE ONCE PRN PRN Reason: Consult order Pravastatin Sodium (Pravastatin Sodium 40 Mg Tablet) 40 mg PO BEDTIME [facility] Last Admin: 02/25/23 21:38 Dose: 40 mg Documented By: PREETI Sodium Chloride (0.9 % Sodium Chloride Flush 3 Ml Syringe) 3 ml IVFLUSH QSHIFT [facility] Last Admin: 02/26/23 07:11 Dose: Not Given Documented By: RONALDO Non-Admin Reason: No Access Tamsulosin HCl (Tamsulosin Hcl 0.4 Mg Capsule) 0.8 mg PO DAILY [facility] Last Admin: 08/05/23 07:33 Dose: 0.8 mg Documented By: RONALDO Labs 02/16/23 06:24 02/23/23 08:20 Labs: Laboratory Results - last 24 hr 02/25/23 02/25/23 02/25/23 10:57 16:03 19:50 POC Glucose 164 H 180 H 137 H 02/26/23 07:02 POC Glucose 158 H Assessment and Plan (1) Pain due to malignant neoplasm metastatic to bone: Status: Acute Plan 82-year-old male with a PMH significant for recently diagnosed?AFib on Eliquis, [id number]-wmavbuzxu diabetes, and enlarged prostate who presented to the ED with?generalized weakness.? Patient recently presented to the emergency room 5 days prior on 12/26/2022 for evaluation of lower back pain.? Patient was found to have new onset AFib with RVR and a likely UTI.? CT scan of abdomen and pelvis found a marked heterogeneous enlargement the prostate gland with asymmetric no dular thickening of the left seminal vesicle concerning for primary malignancy.? 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 acute hypoxic respiratory failure 2/2 LLL atelactasis reolved ?Paroxysmal afib with rvr ?rate control, continue metoprolol and Eliquis Metabolic encephalopathy ( acute delirium in backdrop of chronic dementia) likely natural progression of dementia patient lacks capacity to make most medical decisions and unlikely to be able to live safely independently(psychiatry) awaiting placement(insurance pending) ANTONELLA on CKD II resolved after Oates placement failed voiding trial,oates replaced acute on chronic anemia Hb 10.7 with hematocrit 31.6 is stable DMI ?acceptable control on metformin and lispro correctional scale, few high blood pressure reading was paroxysmal afib ?Eliquis, lopressor DNR/DNI dvt prophylaxis - on eliquis ?Requires continued hospitalization: pending safe discharge to SNF (awaiting bed) Time Spent With Patient Time: Total time managing care of this patient today ____ minutes. Quality Stroke Does the patient have a stroke diagnosis?: No VTE Prior VTE?: No VTE Risk Level:: Medical - moderate - high VTE Device Contraindication: Treatment Not Indicated VTE Drug Contraindication: N/A - Med Ordered
[2023-02-26 11:58] LABS: Glucose, Whole Blood 105 mg/dL (60-115)
[2023-02-26 15:52] VITALS: BP 133/69; PULSE 92; RESP 15; TEMP 36.7; O2SAT 92
[2023-02-26 16:37] LABS: Glucose, Whole Blood 162 mg/dL (60-115)
[2023-02-26 19:36] VITALS: BP 133/62; PULSE 83; RESP 16; TEMP 36.5; O2SAT 97
[2023-02-26 20:57] LABS: Glucose, Whole Blood 149 mg/dL (60-115)
[2023-02-26] MEDS: Pravastatin Sodium 40 MG TABLET PO (21:22)
[2023-02-27 01:52] VITALS: BP 140/78; PULSE 73; RESP 18; TEMP 36.4; O2SAT 95
[2023-02-27] MEDS: Acetaminophen 325 MG TABLET 975 MG PO ×4 (05:50→23:51)
[2023-02-27 07:26] VITALS: BP 124/60; PULSE 81; RESP 17; TEMP 36.5; O2SAT 94
[2023-02-27 07:57] LABS: Glucose, Whole Blood 128 mg/dL (60-115)
--- NOTE | 2023-02-27 07:58 | P.PNIM_ITS ---
Subjective Subjective Date of Service: 02/27/23 Interval History: no complaints Physical Exam Vital Signs: Vital Signs: Last Vital Signs Temp 97.7 F 02/27/23 07:26 Pulse 81 02/27/23 07:26 Resp 17 02/27/23 07:26 BP 124/60 02/27/23 07:26 Pulse Ox 94 02/27/23 07:26 O2 Del Method Room Air 02/27/23 07:26 O2 Flow Rate 94 02/24/23 03:49 Oxygen Flow Rate 3 01/10/23 18:20 BMI result Body Mass Index 24.2 Const: Other: General: AO X 2, no acute distress GI: +BS, NT, no distention Skin: No rash, Oates in place Neuro:? motor grossly intact Psych: appropriate affect Objective Data Active Medications Acetaminophen (Acetaminophen 325 Mg Tablet) 975 mg PO Q6H [facility] Last Admin: 02/27/23 05:50 Dose: 975 mg Documented By: PREETI Amlodipine Besylate (Amlodipine Besylate 5 Mg Tablet) 5 mg PO DAILY [facility]; Protocol Last Admin: 02/26/23 07:33 Dose: 5 mg Documented By: RONALDO Apixaban (Apixaban 2.5 Mg Tablet) 2.5 mg PO BID [facility] Last Admin: 02/26/23 21:22 Dose: 2.5 mg Documented By: PREETI Bicalutamide (Bicalutamide 50 Mg Tablet) 50 mg PO TID [facility] Last Admin: 02/26/23 21:22 Dose: 50 mg Documented By: PREETI Docusate Sodium (Docusate Sodium 100 Mg Capsule) 100 mg PO DAILY PRN PRN Reason: Constipation Last Admin: 01/05/23 08:05 Dose: 100 mg Documented By: MIKE Finasteride (Finasteride 5 Mg Tablet) 5 mg PO DAILY [facility] Last Admin: 02/26/23 07:33 Dose: 5 mg Documented By: RONALDO Gabapentin (Gabapentin 100 Mg Capsule) 100 mg PO BID [facility] Last Admin: 02/26/23 21:22 Dose: 100 mg Documented By: PREETI Glucose (Glucose Gel 15 Gm Gel..Gram.) 15 gm PO Q15M PRN; Protocol PRN Reason: per Hypoglycemia Standing Ord. Dextrose (D10) 250 mls @ 750 mls/hr IV Q15M PRN; Protocol PRN Reason: per Hypoglycemia Standing Ord. Insulin Human Lispro (Insulin Lispro 100 Unit/Ml 3 Ml Vial) 0 unit SUBCUT QIDACHS [facility]; Protocol Last Admin: 02/27/23 07:36 Dose: Not Given Documented By: RONALDO Non-Admin Reason: No Insulin Coverage Metformin HCl (Metformin Hcl Er 500 Mg Tab.Er.24h) 2,000 mg PO DAILY [facility] Last Admin: 02/26/23 07:33 Dose: 2,000 mg Documented By: RONALDO Metoprolol Tartrate (Metoprolol Tartrate 25 Mg Tablet) 25 mg PO BID [facility]; Protocol Last Admin: 02/26/23 21:22 Dose: 25 mg Documented By: PREETI Olanzapine (Olanzapine 10 Mg Vial) 5 mg IM DAILY PRN PRN Reason: agitation Olanzapine (Olanzapine 2.5 Mg Tablet) 2.5 mg PO Q4H PRN PRN Reason: Delirium Last Admin: 02/15/23 03:35 Dose: 2.5 mg Documented By: HEIDI Olanzapine (Olanzapine 2.5 Mg Tablet) 2.5 mg PO DAILY [facility] Last Admin: 02/26/23 07:34 Dose: 2.5 mg Documented By: RONALDO Ondansetron HCl (Ondansetron Hcl 4 Mg/2 Ml Vial) 4 mg IVPUSH Q8H PRN PRN Reason: Nausea and Vomiting Ondansetron HCl (Ondansetron Hcl 4 Mg/2 Ml Vial) 4 mg IVPUSH ONCE PRN PRN Reason: Nausea and Vomiting Pharmacy Consult (Consult Rx Perform Med Rec) 1 each MISCELLANE ONCE PRN PRN Reason: Consult order Pravastatin Sodium (Pravastatin Sodium 40 Mg Tablet) 40 mg PO BEDTIME [facility] Last Admin: 02/26/23 21:22 Dose: 40 mg Documented By: PREETI Sodium Chloride (0.9 % Sodium Chloride Flush 3 Ml Syringe) 3 ml IVFLUSH QSHIFT [facility] Last Admin: 02/27/23 07:10 Dose: Not Given Documented By: RONALDO Non-Admin Reason: No Access Tamsulosin HCl (Tamsulosin Hcl 0.4 Mg Capsule) 0.8 mg PO DAILY [facility] Last Admin: 08/05/23 07:33 Dose: 0.8 mg Documented By: RONALDO Labs 02/16/23 06:24 02/23/23 08:20 Labs: Laboratory Results - last 24 hr 02/26/23 02/26/23 02/26/23 11:47 16:32 20:46 POC Glucose 105 162 H 149 H 02/27/23 07:25 POC Glucose 128 H Assessment and Plan (1) Pain due to malignant neoplasm metastatic to bone: Status: Acute Plan 82-year-old male with a PMH significant for recently diagnosed?AFib on Eliquis, [id number]-fczqwnwxb diabetes, and enlarged prostate who presented to the ED with?generalized weakness.? Patient recently presented to the emergency room 5 days prior on 12/26/2022 for evaluation of lower back pain.? Patient was found to have new onset AFib with RVR and a likely UTI.? CT scan of abdomen and pelvis found a marked heterogeneous enlargement the prostate gland with asymmetric nodular thickening of the left seminal vesicle concerning for primary malignancy.? 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 acute hypoxic respiratory failure 2/2 LLL atelactasis reolved ?Paroxysmal afib with rvr ?rate control, continue metoprolol and Eliquis Metabolic encephalopathy ( acute delirium in backdrop of chronic dementia) likely natural progression of dementia patient lacks capacity to make most medical decisions and unlikely to be able to live safely independently(psychiatry) awaiting placement(insurance pending) ANTONELLA on CKD II resolved after Oates placement failed voiding trial,oates replaced acute on chronic anemia Hb 10.7 with hematocrit 31.6 is stable DMI ?acceptable control on metformin and lispro correctional scale, few high blood pressure reading was paroxysmal afib ?Eliquis, lopressor DNR/DNI dvt prophylaxis - on eliquis ?Requires continued hospitalization: pending safe discharge to SNF (awaiting bed) Time Spent With Patient Time: Total time managing care of this patient today ____ minutes. Quality Stroke Does the patient have a stroke diagnosis?: No VTE Prior VTE?: No VTE Risk Level:: Medical - moderate - high VTE Device Contraindication: Treatment Not Indicated VTE Drug Contraindication: N/A - Med Ordered
[2023-02-27] MEDS: Finasteride 5 MG TABLET PO (08:07)
[2023-02-27] MEDS: Bicalutamide 50 MG TABLET PO ×3 (08:07→20:53)
[2023-02-27] MEDS: OLANZapine 2.5 MG TABLET PO (08:08)
[2023-02-27] MEDS: Tamsulosin HCL 0.4 MG CAPSULE 0.8 MG PO (08:08)
[2023-02-27] MEDS: Gabapentin 100 MG CAPSULE PO ×2 (08:08→20:53)
[2023-02-27] MEDS: amLODIPine Besylate 5 MG TABLET PO (08:08)
[2023-02-27] MEDS: Apixaban 2.5 MG TABLET PO ×2 (08:08→20:53)
[2023-02-27] MEDS: Metoprolol Tartrate 25 MG TABLET PO ×2 (08:08→20:53)
[2023-02-27] MEDS: metFORMIN HCl ER 500 MG TAB.ER.24H 2000 MG PO (08:08)
[2023-02-27 11:49] LABS: Glucose, Whole Blood 120 mg/dL (60-115)
[2023-02-27 16:00] VITALS: BP 121/69; PULSE 75; RESP 17; TEMP 36.2; O2SAT 95
[2023-02-27 16:41] LABS: Glucose, Whole Blood 132 mg/dL (60-115)
[2023-02-27 19:26] VITALS: BP 132/63; PULSE 84; RESP 20; TEMP 36.4; O2SAT 98
[2023-02-27 20:22] LABS: Glucose, Whole Blood 146 mg/dL (60-115)
[2023-02-27] MEDS: Pravastatin Sodium 40 MG TABLET PO (20:53)
[2023-02-28 03:40] VITALS: BP 131/63; PULSE 84; RESP 18; TEMP 36.6; O2SAT 95
[2023-02-28] MEDS: Acetaminophen 325 MG TABLET 975 MG PO ×3 (05:42→21:21)
[2023-02-28 07:08] VITALS: BP 131/65; PULSE 84; RESP 18; TEMP 36.6; O2SAT 99
[2023-02-28 07:15] LABS: Glucose, Whole Blood 163 mg/dL (60-115)
[2023-02-28] MEDS: Gabapentin 100 MG CAPSULE PO ×2 (07:53→21:18)
[2023-02-28] MEDS: Apixaban 2.5 MG TABLET PO ×2 (07:53→21:18)
[2023-02-28] MEDS: metFORMIN HCl ER 500 MG TAB.ER.24H 2000 MG PO (07:53)
[2023-02-28] MEDS: Tamsulosin HCL 0.4 MG CAPSULE 0.8 MG PO (07:53)
[2023-02-28] MEDS: amLODIPine Besylate 5 MG TABLET PO (07:53)
[2023-02-28] MEDS: Insulin Lispro 100 UNIT/ML 3 ML VIAL SUBCUT ×2 (07:53→12:19)
[2023-02-28] MEDS: Metoprolol Tartrate 25 MG TABLET PO ×2 (07:54→21:18)
[2023-02-28] MEDS: OLANZapine 2.5 MG TABLET PO (07:54)
[2023-02-28] MEDS: Bicalutamide 50 MG TABLET PO ×3 (07:54→21:18)
[2023-02-28] MEDS: Finasteride 5 MG TABLET PO (07:54)
--- NOTE | 2023-02-28 08:39 | HO.PM.IMPN ---
Subjective Subjective Date of Service: 02/28/23 Interval History: no complaints Physical Exam Vital Signs: Vital Signs: Last Vital Signs Temp 98 F 02/28/23 07:08 Pulse 84 02/28/23 07:08 Resp 18 02/28/23 07:08 BP 131/65 02/28/23 07:08 Pulse Ox 99 02/28/23 07:08 O2 Del Method Room Air 02/28/23 07:08 O2 Flow Rate 94 02/24/23 03:49 Oxygen Flow Rate 3 01/10/23 18:20 BMI result Body Mass Index 24.2 Const: Other: General: AO X 2, no acute distress GI: +BS, NT, no distention Skin: No rash, Oates in place Neuro:? motor grossly intact Psych: appropriate affect Objective Data Active Medications Acetaminophen (Acetaminophen 325 Mg Tablet) 975 mg PO Q6H [facility] Last Admin: 02/28/23 05:42 Dose: 975 mg Documented By: RPEETI Amlodipine Besylate (Amlodipine Besylate 5 Mg Tablet) 5 mg PO DAILY [facility]; Protocol Last Admin: 02/28/23 07:53 Dose: 5 mg Documented By: ROBERT Apixaban (Apixaban 2.5 Mg Tablet) 2.5 mg PO BID [facility] Last Admin: 02/28/23 07:53 Dose: 2.5 mg Documented By: ROBERT Bicalutamide (Bicalutamide 50 Mg Tablet) 50 mg PO TID [facility] Last Admin: 02/28/23 07:54 Dose: 50 mg Documented By: ROBERT Docusate Sodium (Docusate Sodium 100 Mg Capsule) 100 mg PO DAILY PRN PRN Reason: Constipation Last Admin: 01/05/23 08:05 Dose: 100 mg Documented By: MIKE Finasteride (Finasteride 5 Mg Tablet) 5 mg PO DAILY [facility] Last Admin: 02/28/23 07:54 Dose: 5 mg Documented By: ROBERT Gabapentin (Gabapentin 100 Mg Capsule) 100 mg PO BID [facility] Last Admin: 02/28/23 07:53 Dose: 100 mg Documented By: ROBERT Glucose (Glucose Gel 15 Gm Gel..Gram.) 15 gm PO Q15M PRN; Protocol PRN Reason: per Hypoglycemia Standing Ord. Dextrose (D10) 250 mls @ 750 mls/hr IV Q15M PRN; Protocol PRN Reason: per Hypoglycemia Standing Ord. Insulin Human Lispro (Insulin Lispro 100 Unit/Ml 3 Ml Vial) 0 unit SUBCUT QIDACHS [facility]; Protocol Last Admin: 02/28/23 07:53 Dose: 2 unit Documented By: ROBERT Metformin HCl (Metformin Hcl Er 500 Mg Tab.Er.24h) 2,000 mg PO DAILY [facility] Last Admin: 02/28/23 07:53 Dose: 2,000 mg Documented By: ROBERT Metoprolol Tartrate (Metoprolol Tartrate 25 Mg Tablet) 25 mg PO BID [facility]; Protocol Last Admin: 02/28/23 07:54 Dose: 25 mg Documented By: ROBERT Olanzapine (Olanzapine 10 Mg Vial) 5 mg IM DAILY PRN PRN Reason: agitation Olanzapine (Olanzapine 2.5 Mg Tablet) 2.5 mg PO Q4H PRN PRN Reason: Delirium Last Admin: 02/15/23 03:35 Dose: 2.5 mg Documented By: HEIDI Olanzapine (Olanzapine 2.5 Mg Tablet) 2.5 mg PO DAILY [facility] Last Admin: 02/28/23 07:54 Dose: 2.5 mg Documented By: ROBERT Ondansetron HCl (Ondansetron Hcl 4 Mg/2 Ml Vial) 4 mg IVPUSH Q8H PRN PRN Reason: Nausea and Vomiting Ondansetron HCl (Ondansetron Hcl 4 Mg/2 Ml Vial) 4 mg IVPUSH ONCE PRN PRN Reason: Nausea and Vomiting Pharmacy Consult (Consult Rx Perform Med Rec) 1 each MISCELLANE ONCE PRN PRN Reason: Consult order Pravastatin Sodium (Pravastatin Sodium 40 Mg Tablet) 40 mg PO BEDTIME [facility] Last Admin: 02/27/23 20:53 Dose: 40 mg Documented By: PREETI Sodium Chloride (0.9 % Sodium Chloride Flush 3 Ml Syringe) 3 ml IVFLUSH QSHIFT [facility] Last Admin: 02/28/23 07:47 Dose: Not Given Documented By: ROBERT Non-Admin Reason: No Access Tamsulosin HCl (Tamsulosin Hcl 0.4 Mg Capsule) 0.8 mg PO DAILY [facility] Last Admin: 02/28/23 07:53 Dose: 0.8 mg Documented By: ROBERT Labs 02/16/23 06:24 02/23/23 08:20 Labs: Laboratory Results - last 24 hr 02/27/23 02/27/23 02/27/23 11:35 16:31 20:16 POC Glucose 120 H 132 H 146 H 02/28/23 07:07 POC Glucose 163 H Assessment and Plan (1) Pain due to malignant neoplasm metastatic to bone: Status: Acute Plan 82-year-old male with a PMH significant for recently diagnosed?AFib on Eliquis, byc-mhktxel-btgwsaxkc diabetes, and enlarged prostate who presented to the ED with?generalized weakness.? Patient recently presented to the emergency room 5 days prior on 12/26/2022 for evaluation of lower back pain.? Patient was found to have new onset AFib with RVR and a likely UTI.? CT scan of abdomen and pelvis found a marked heterogeneous enlargement the prostate gland with asymmetric nodular thickening of the left seminal vesicle concerning for primary malignancy.? 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 acute hypoxic respiratory failure 2/2 LLL atelactasis reolved ?Paroxysmal afib with rvr ?rate control, continue metoprolol and Eliquis Metabolic encephalopathy ( acute delirium in backdrop of chronic dementia) likely natural progression of dementia patient lacks capacity to make most medical decisions and unlikely to be able to live safely independently(psychiatry) awaiting placement(insurance pending) ANTONELLA on CKD II resolved after Oates placement failed voiding trial,oates replaced acute on chronic anemia Hb 10.7 with hematocrit 31.6 is stable DMI ?acceptable control on metformin and lispro correctional scale, few high blood pressure reading was paroxysmal afib ?Eliquis, lopressor DNR/DNI dvt prophylaxis - on eliquis ?Requires continued hospitalization: pending safe discharge to SNF (awaiting bed) Time Spent With Patient Time: Total time managing care of this patient today ____ minutes. Quality Stroke Does the patient have a stroke diagnosis?: No VTE Prior VTE?: No VTE Risk Level:: Medical - moderate - high VTE Device Contraindication: Treatment Not Indicated VTE Drug Contraindication: N/A - Med Ordered
--- NOTE | 2023-02-28 09:11 | MHC.CLN ---
Addendum entered by Rosa Johns, WHITLEY 02/28/23 09:47: PATIENT NO LONGER ACCEPTING ENSURE SUPPLEMENT. INTAKE MOST MEALS 100%. CONTINUES WITH STAGE II TO COCCYX. OK TO DISCONTINUE ENSURE SUPPLEMENT. Original Note: F/U STAGE II TO COCCYX. DIET=DIABETIC 2000 KCALS. ENSURE MAX TID PROVIDES ADDITIONAL 450 KCALS, 90 G PROTEIN TO PROMOTE WOUND HEALING. DIET AND SUPPLEMENT APPROPRIATE. CONTINUES WITH USUALLY GOOD INTAKE AT MEALS, WITH MOST 100%. DX PROSTATE CANCER WITH METS TO BONE. FOLLOW FOR INTAKE AND WOUND HEALING.
[2023-02-28 11:05] LABS: Glucose, Whole Blood 204 mg/dL (60-115)
--- NOTE | 2023-02-28 14:42 | MHC.CM.PN ---
CM UPDATED REFERRALS FOR LTC PLACEMENT. NO BED OFFERS A THIS TIME. CM WILL CONTINUE TO PURSUE.
[2023-02-28 15:20] VITALS: BP 122/60; PULSE 80; RESP 18; TEMP 36.3; O2SAT 97
[2023-02-28 16:14] LABS: Glucose, Whole Blood 85 mg/dL (60-115)
[2023-02-28 20:43] LABS: Glucose, Whole Blood 150 mg/dL (60-115)
[2023-02-28 21:09] VITALS: BP 146/72; PULSE 84; RESP 20; TEMP 36.4; O2SAT 98
[2023-02-28] MEDS: Pravastatin Sodium 40 MG TABLET PO (21:18)
[2023-03-01 03:29] VITALS: BP 124/59; PULSE 72; RESP 18; TEMP 36.6; O2SAT 98
[2023-03-01 06:58] VITALS: BP 140/65; PULSE 80; RESP 18; TEMP 36.1; O2SAT 98
[2023-03-01 07:07] LABS: Glucose, Whole Blood 212 mg/dL (60-115)
[2023-03-01] MEDS: metFORMIN HCl ER 500 MG TAB.ER.24H 2000 MG PO (08:02)
[2023-03-01] MEDS: Gabapentin 100 MG CAPSULE PO (08:02)
[2023-03-01] MEDS: Apixaban 2.5 MG TABLET PO (08:02)
[2023-03-01] MEDS: Metoprolol Tartrate 25 MG TABLET PO (08:02)
[2023-03-01] MEDS: Tamsulosin HCL 0.4 MG CAPSULE 0.8 MG PO (08:02)
[2023-03-01] MEDS: amLODIPine Besylate 5 MG TABLET PO (08:02)
[2023-03-01] MEDS: OLANZapine 2.5 MG TABLET PO (08:02)
[2023-03-01] MEDS: Finasteride 5 MG TABLET PO (08:03)
[2023-03-01] MEDS: Bicalutamide 50 MG TABLET PO ×2 (08:03→14:37)
[2023-03-01] MEDS: Insulin Lispro 100 UNIT/ML 3 ML VIAL SUBCUT ×3 (08:34→21:27)
--- NOTE | 2023-03-01 08:51 | P.PNIM_ITS ---
Subjective Subjective Date of Service: 03/01/23 Interval History: no complaints Physical Exam Vital Signs: Vital Signs: Last Vital Signs Temp 97 F 03/01/23 06:58 Pulse 80 03/01/23 06:58 Resp 18 03/01/23 06:58 BP 140/65 H 03/01/23 06:58 Pulse Ox 98 03/01/23 06:58 O2 Del Method Room Air 03/01/23 06:58 O2 Flow Rate 94 02/24/23 03:49 Oxygen Flow Rate 3 01/10/23 18:20 BMI result Body Mass Index 24.2 Const: Other: General: AO X 2, no acute distress GI: +BS, NT, no distention Skin: No rash, Oates in place Neuro:? motor grossly intact Psych: appropriate affect Objective Data Active Medications Acetaminophen (Acetaminophen 325 Mg Tablet) 975 mg PO Q6H [facility] Last Admin: 03/01/23 05:50 Dose: Not Given Documented By: WANDY Non-Admin Reason: Patient Asleep Amlodipine Besylate (Amlodipine Besylate 5 Mg Tablet) 5 mg PO DAILY [facility]; Protocol Last Admin: 03/01/23 08:02 Dose: 5 mg Documented By: ELIAZAR Apixaban (Apixaban 2.5 Mg Tablet) 2.5 mg PO BID [facility] Last Admin: 03/01/23 08:02 Dose: 2.5 mg Documented By: ELIAZAR Bicalutamide (Bicalutamide 50 Mg Tablet) 50 mg PO TID [facility] Last Admin: 03/01/23 08:03 Dose: 50 mg Documented By: ELIAZAR Docusate Sodium (Docusate Sodium 100 Mg Capsule) 100 mg PO DAILY PRN PRN Reason: Constipation Last Admin: 01/05/23 08:05 Dose: 100 mg Documented By: RIOSCJOSESITO Finasteride (Finasteride 5 Mg Tablet) 5 mg PO DAILY [facility] Last Admin: 03/01/23 08:03 Dose: 5 mg Documented By: ELIAZAR Gabapentin (Gabapentin 100 Mg Capsule) 100 mg PO BID [facility] Last Admin: 03/01/23 08:02 Dose: 100 mg Documented By: ELIAZAR Glucose (Glucose Gel 15 Gm Gel..Gram.) 15 gm PO Q15M PRN; Protocol PRN Reason: per Hypoglycemia Standing Ord. Dextrose (D10) 250 mls @ 750 mls/hr IV Q15M PRN; Protocol PRN Reason: per Hypoglycemia Standing Ord. Insulin Human Lispro (Insulin Lispro 100 Unit/Ml 3 Ml Vial) 0 unit SUBCUT QIDACHS [facility]; Protocol Last Admin: 03/01/23 08:34 Dose: 4 unit Documented By: ELIAZAR Metformin HCl (Metformin Hcl Er 500 Mg Tab.Er.24h) 2,000 mg PO DAILY [facility] Last Admin: 03/01/23 08:02 Dose: 2,000 mg Documented By: ELIAZAR Metoprolol Tartrate (Metoprolol Tartrate 25 Mg Tablet) 25 mg PO BID [facility]; Protocol Last Admin: 03/01/23 08:02 Dose: 25 mg Documented By: ELIAZAR Olanzapine (Olanzapine 10 Mg Vial) 5 mg IM DAILY PRN PRN Reason: agitation Olanzapine (Olanzapine 2.5 Mg Tablet) 2.5 mg PO Q4H PRN PRN Reason: Delirium Last Admin: 02/15/23 03:35 Dose: 2.5 mg Documented By: CONRADOILM Olanzapine (Olanzapine 2.5 Mg Tablet) 2.5 mg PO DAILY [facility] Last Admin: 03/01/23 08:02 Dose: 2.5 mg Documented By: ELIAZAR Ondansetron HCl (Ondansetron Hcl 4 Mg/2 Ml Vial) 4 mg IVPUSH Q8H PRN PRN Reason: Nausea and Vomiting Ondansetron HCl (Ondansetron Hcl 4 Mg/2 Ml Vial) 4 mg IVPUSH ONCE PRN PRN Reason: Nausea and Vomiting Pharmacy Consult (Consult Rx Perform Med Rec) 1 each MISCELLANE ONCE PRN PRN Reason: Consult order Pravastatin Sodium (Pravastatin Sodium 40 Mg Tablet) 40 mg PO BEDTIME [facility] Last Admin: 02/28/23 21:18 Dose: 40 mg Documented By: LYSMitzi Sodium Chloride (0.9 % Sodium Chloride Flush 3 Ml Syringe) 3 ml IVFLUSH QSHIFT [facility] Last Admin: 03/01/23 08:03 Dose: Not Given Documented By: ELIAZAR Non-Admin Reason: No Access Tamsulosin HCl (Tamsulosin Hcl 0.4 Mg Capsule) 0.8 mg PO DAILY [facility] Last Admin: 03/01/23 08:02 Dose: 0.8 mg Documented By: ELIAZAR Labs 02/16/23 06:24 02/23/23 08:20 Labs: Laboratory Results - last 24 hr 02/28/23 02/28/23 02/28/23 11:01 16:04 20:39 POC Glucose 204 H 85 150 H 03/01/23 07:03 POC Glucose 212 H Assessment and Plan (1) Pain due to malignant neoplasm metastatic to bone: Status: Acute Plan 82-year-old male with a PMH significant for recently diagnosed?AFib on Eliquis, vnv-rtomemg-mvliwrwwm diabetes, and enlarged prostate who presented to the ED with?generalized weakness.? Patient recently presented to the emergency room 5 days prior on 12/26/2022 for evaluation of lower back pain.? Patient was found to have new onset AFib with RVR and a likely UTI.? CT scan of abdomen and pelvis found a marked heterogeneous enlargement the prostate gland with asymmetric nodular thickening of the left seminal vesicle concerning for primary malignancy.? 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 acute hypoxic respiratory failure 2/2 LLL atelactasis reolved ?Paroxysmal afib with rvr ?rate control, continue metoprolol and Eliquis Metabolic encephalopathy ( acute delirium in backdrop of chronic dementia) likely natural progression of dementia patient lacks capacity to make most medical decisions and unlikely to be able to live safely independently(psychiatry) awaiting placement(insurance pending) ANTONELLA on CKD II resolved after Oates placement failed voiding trial,oates replaced acute on chronic anemia Hb 10.7 with hematocrit 31.6 is stable DMI ?acceptable control on metformin and lispro correctional scale, few high blood pressure reading was paroxysmal afib ?Eliquis, lopressor DNR/DNI dvt prophylaxis - on eliquis ?Requires continued hospitalization: pending safe discharge to SNF (awaiting bed) Time Spent With Patient Time: Total time managing care of this patient today ____ minutes. Quality Stroke Does the patient have a stroke diagnosis?: No VTE Prior VTE?: No VTE Risk Level:: Medical - moderate - high VTE Device Contraindication: Treatment Not Indicated VTE Drug Contraindication: N/A - Med Ordered
[2023-03-01 11:12] LABS: Glucose, Whole Blood 155 mg/dL (60-115)
[2023-03-01] MEDS: Acetaminophen 325 MG TABLET 975 MG PO ×2 (11:23→17:03)
[2023-03-01 15:53] LABS: Glucose, Whole Blood 123 mg/dL (60-115)
[2023-03-01 16:00] VITALS: BP 115/57; PULSE 77; RESP 16; TEMP 36.2; O2SAT 97
[2023-03-01] MEDS: 0.9 % Sodium Chloride Flush 3 ML SYRINGE IVFLUSH (17:03)
[2023-03-01 20:00] VITALS: BP 132/61; PULSE 76; RESP 16; TEMP 36; O2SAT 96
[2023-03-01 20:11] LABS: Glucose, Whole Blood 212 mg/dL (60-115)
[2023-03-02 04:00] VITALS: BP 153/72; PULSE 70; RESP 16; TEMP 36.2; O2SAT 96
[2023-03-02 05:37] LABS: Hematocrit 31.2 % (42.0-52.0); Hemoglobin 10.6 g/dl (14.0-18.0); Mean Corpuscular Hemoglobin 30.1 pg (27.0-33.0); Mean Corpuscular Volume 88.6 fL (80.0-98.0); Mean Platelet Volume 9.7 fL (9.4-12.4); Platelet Count 265 X10*3/uL (160-400); Red Blood Count 3.52 X10*6/uL (4.60-5.80); Red Cell Distribution Width 13.8 % (11.0-16.0); White Blood Count 10.3 X10*3/uL (4.8-10.8)
[2023-03-02 05:53] LABS: Anion Gap 15 (12-20); Blood Urea Nitrogen 25 mg/dL (9-16); Calcium 9.4 mg/dL (8.4-10.2); Carbon Dioxide 23 mmol/L (22-29); Chloride 105 mmol/L (96-108); Creatinine Clr Calc Pharmacy 54.7; Estimated Glomerular Filt Rate > 60; Glucose Fasting 120 mg/dL (60-99); Sodium 139 mmol/L (135-145)
[2023-03-02] MEDS: Acetaminophen 325 MG TABLET 975 MG PO ×2 (06:03→21:43)
--- NOTE | 2023-03-02 07:10 | PC.NURSE ---
Approximately around 21:00, the pt refused to take his bedtime medications. This RN educated the pt the importance of each medication, but still refused to take them. MD Gardner was notified of the situation. Will continue to educate pt the importance of taking his medications.
[2023-03-02 07:32] LABS: Glucose, Whole Blood 111 mg/dL (60-115)
[2023-03-02 07:42] VITALS: BP 136/71; PULSE 73; RESP 20; TEMP 36.2; O2SAT 96
[2023-03-02] MEDS: metFORMIN HCl ER 500 MG TAB.ER.24H 2000 MG PO (07:49)
[2023-03-02] MEDS: Tamsulosin HCL 0.4 MG CAPSULE 0.8 MG PO (07:50)
[2023-03-02] MEDS: Bicalutamide 50 MG TABLET PO ×2 (07:50→21:48)
[2023-03-02] MEDS: Gabapentin 100 MG CAPSULE PO ×2 (07:50→21:47)
[2023-03-02] MEDS: Apixaban 2.5 MG TABLET PO ×2 (07:50→21:47)
[2023-03-02] MEDS: Metoprolol Tartrate 25 MG TABLET PO ×2 (07:50→21:47)
[2023-03-02] MEDS: OLANZapine 2.5 MG TABLET PO (07:50)
[2023-03-02] MEDS: Finasteride 5 MG TABLET PO (07:50)
--- NOTE | 2023-03-02 10:14 | HO.PM.IMPN ---
Subjective Subjective Date of Service: 03/02/23 Interval History: Seen and evaluated this morning sitting in his bed Pain under fair control Physical Exam Vital Signs: Vital Signs: Last Vital Signs Temp 97.2 F 03/02/23 07:42 Pulse 73 03/02/23 07:42 Resp 20 03/02/23 07:42 BP 136/71 03/02/23 07:42 Pulse Ox 96 03/02/23 07:42 O2 Del Method Room Air 03/02/23 07:42 O2 Flow Rate 94 02/24/23 03:49 Oxygen Flow Rate 3 01/10/23 18:20 BMI result Body Mass Index 24.2 Const: Other: General: AO X 2, no acute distress GI: +BS, NT, no distention Skin: No rash, Oates in place Neuro:? motor grossly intact Psych: appropriate affect Objective Data Active Medications Acetaminophen (Acetaminophen 325 Mg Tablet) 975 mg PO BID [facility] Acetaminophen (Acetaminophen 325 Mg Tablet) 650 mg PO Q6H PRN PRN Reason: Pain, Moderate(Pain Scale 4-6) Amlodipine Besylate (Amlodipine Besylate 5 Mg Tablet) 5 mg PO DAILY [facility]; Protocol Last Admin: 03/02/23 08:45 Dose: Not Given Documented By: MORENITAEMA Non-Admin Reason: Patient Refused Apixaban (Apixaban 2.5 Mg Tablet) 2.5 mg PO BID [facility] Last Admin: 03/02/23 07:50 Dose: 2.5 mg Documented By: MADALYN Bicalutamide (Bicalutamide 50 Mg Tablet) 50 mg PO TID [facility] Last Admin: 03/02/23 07:50 Dose: 50 mg Documented By: MORENITAEMA Docusate Sodium (Docusate Sodium 100 Mg Capsule) 100 mg PO DAILY PRN PRN Reason: Constipation Last Admin: 01/05/23 08:05 Dose: 100 mg Documented By: RIOSCEL Finasteride (Finasteride 5 Mg Tablet) 5 mg PO DAILY [facility] Last Admin: 03/02/23 07:50 Dose: 5 mg Documented By: MADALYN Gabapentin (Gabapentin 100 Mg Capsule) 100 mg PO BID [facility] Last Admin: 03/02/23 07:50 Dose: 100 mg Documented By: MORENITAEMA Glucose (Glucose Gel 15 Gm Gel..Gram.) 15 gm PO Q15M PRN; Protocol PRN Reason: per Hypoglycemia Standing Ord. Dextrose (D10) 250 mls @ 750 mls/hr IV Q15M PRN; Protocol PRN Reason: per Hypoglycemia Standing Ord. Insulin Human Lispro (Insulin Lispro 100 Unit/Ml 3 Ml Vial) 0 unit SUBCUT QIDACHS [facility]; Protocol Last Admin: 03/02/23 07:42 Dose: Not Given Documented By: MADALYN Non-Admin Reason: No Insulin Coverage Metformin HCl (Metformin Hcl Er 500 Mg Tab.Er.24h) 2,000 mg PO DAILY [facility] Last Admin: 03/02/23 07:49 Dose: 2,000 mg Documented By: COTEMA Metoprolol Tartrate (Metoprolol Tartrate 25 Mg Tablet) 25 mg PO BID [facility]; Protocol Last Admin: 03/02/23 07:50 Dose: 25 mg Documented By: MADALYN Olanzapine (Olanzapine 10 Mg Vial) 5 mg IM DAILY PRN PRN Reason: agitation Olanzapine (Olanzapine 2.5 Mg Tablet) 2.5 mg PO Q4H PRN PRN Reason: Delirium Last Admin: 02/15/23 03:35 Dose: 2.5 mg Documented By: CONRADOILZoe Olanzapine (Olanzapine 2.5 Mg Tablet) 2.5 mg PO DAILY [facility] Last Admin: 03/02/23 07:50 Dose: 2.5 mg Documented By: MADALYN Ondansetron HCl (Ondansetron Hcl 4 Mg/2 Ml Vial) 4 mg IVPUSH Q8H PRN PRN Reason: Nausea and Vomiting Ondansetron HCl (Ondansetron Hcl 4 Mg/2 Ml Vial) 4 mg IVPUSH ONCE PRN PRN Reason: Nausea and Vomiting Oxycodone HCl (Oxycodone Hcl Immed Release 5 Mg Tablet) 2.5 mg PO Q8H PRN PRN Reason: Pain, Severe (Pain Scale 7-10) Stop: 04/01/23 10:08 Pharmacy Consult (Consult Rx Perform Med Rec) 1 each MISCELLANE ONCE PRN PRN Reason: Consult order Pravastatin Sodium (Pravastatin Sodium 40 Mg Tablet) 40 mg PO BEDTIME [facility] Last Admin: 03/01/23 22:11 Dose: Not Given Documented By: LUIS DANIEL Non-Admin Reason: Patient Refused Sodium Chloride (0.9 % Sodium Chloride Flush 3 Ml Syringe) 3 ml IVFLUSH QSHIFT [facility] Last Admin: 03/02/23 07:42 Dose: Not Given Documented By: MADALYN Non-Admin Reason: No Access Tamsulosin HCl (Tamsulosin Hcl 0.4 Mg Capsule) 0.8 mg PO DAILY [facility] Last Admin: 03/02/23 07:50 Dose: 0.8 mg Documented By: MADALYN Labs 03/02/23 05:03 03/02/23 05:03 Labs: Laboratory Results - last 24 hr 03/01/23 03/01/23 03/01/23 11:08 15:49 20:08 MCV MCH MCHC RDW Plt Count MPV Absolute Nucleated RBC Nucleated RBC % (auto) Anion Gap Estim Creat Clear Calc Estimated GFR POC Glucose 155 H 123 H 212 H Fasting Glucose Calcium 03/02/23 03/02/23 03/02/23 05:03 05:03 07:28 MCV 88.6 MCH 30.1 MCHC 34.0 RDW 13.8 Plt Count 265 D MPV 9.7 Absolute Nucleated RBC 0.000 Nucleated RBC % (auto) 0.0 Anion Gap 15 Estim Creat Clear Calc 54.7 Estimated GFR > 60 POC Glucose 111 Fasting Glucose 120 H Calcium 9.4 Assessment and Plan (1) Metastasis to bone: Status: Acute (2) Pain due to malignant neoplasm metastatic to bone: Status: Acute Plan 82-year-old male with a PMH significant for recently diagnosed?AFib on Eliquis, anx-psccpyx-szddkwfdv diabetes, and enlarged prostate who presented to the ED with?generalized weakness.? Patient recently presented to the emergency room 5 days prior on 12/26/2022 for evaluation of lower back pain.? Patient was found to have new onset AFib with RVR and a likely UTI.? CT scan of abdomen and pelvis found a marked heterogeneous enlargement the prostate gland with asymmetric nodular thickening of the left seminal vesicle concerning for primary malignancy.? 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 acute hypoxic respiratory failure 2/2 LLL atelactasis reolved ?Paroxysmal afib with rvr ?rate control, continue metoprolol and Eliquis Metabolic encephalopathy ( acute delirium in backdrop of chronic dementia) likely natural progression of dementia patient lacks capacity to make most medical decisions and unlikely to be able to live safely independently(psychiatry) awaiting placement(insurance pending) ANTONELLA on CKD II resolved after Oates placement failed voiding trial,oates replaced acute on chronic anemia Hb 10.7 with hematocrit 31.6 is stable DMI ?acceptable control on metformin and lispro correctional scale, few high blood pressure reading was paroxysmal afib ?Eliquis, lopressor DNR/DNI dvt prophylaxis - on eliquis ?Requires continued hospitalization: pending safe discharge to SNF (awaiting bed) Time Spent With Patient Time: Total time managing care of this patient today ____ minutes. Quality Stroke Does the patient have a stroke diagnosis?: No VTE Prior VTE?: No VTE Risk Level:: Medical - moderate - high VTE Device Contraindication: Treatment Not Indicated VTE Drug Contraindication: N/A - Med Ordered
[2023-03-02] MEDS: Insulin Lispro 100 UNIT/ML 3 ML VIAL SUBCUT ×2 (11:35→21:41)
[2023-03-02] MEDS: oxyCODONE HCl Immed Release 5 MG TABLET 2.5 MG PO (11:36)
[2023-03-02 11:39] LABS: Glucose, Whole Blood 159 mg/dL (60-115)
--- NOTE | 2023-03-02 15:07 | MHC.CM.PN ---
asked jn painting for an update on Yoono
[2023-03-02 15:33] VITALS: BP 114/55; PULSE 76; RESP 16; TEMP 36.3; O2SAT 96
[2023-03-02 16:16] LABS: Glucose, Whole Blood 108 mg/dL (60-115)
[2023-03-02 19:52] VITALS: BP 132/64; PULSE 96; RESP 16; TEMP 36.8; O2SAT 95
[2023-03-02 20:05] LABS: Glucose, Whole Blood 199 mg/dL (60-115)
[2023-03-02] MEDS: Pravastatin Sodium 40 MG TABLET PO (21:47)
[2023-03-03 03:41] VITALS: BP 145/71; PULSE 82; RESP 18; TEMP 36.2; O2SAT 97
[2023-03-03 07:24] LABS: Glucose, Whole Blood 122 mg/dL (60-115)
[2023-03-03 07:27] VITALS: BP 132/60; PULSE 67; RESP 20; TEMP 36.4; O2SAT 98
[2023-03-03] MEDS: metFORMIN HCl ER 500 MG TAB.ER.24H 2000 MG PO (09:04)
[2023-03-03] MEDS: Acetaminophen 325 MG TABLET 975 MG PO ×2 (09:04→20:53)
[2023-03-03] MEDS: Apixaban 2.5 MG TABLET PO ×2 (09:04→20:54)
[2023-03-03] MEDS: OLANZapine 2.5 MG TABLET PO (09:05)
[2023-03-03] MEDS: amLODIPine Besylate 5 MG TABLET PO (09:05)
[2023-03-03] MEDS: Bicalutamide 50 MG TABLET PO ×3 (09:05→20:54)
[2023-03-03] MEDS: Tamsulosin HCL 0.4 MG CAPSULE 0.8 MG PO (09:05)
[2023-03-03] MEDS: Metoprolol Tartrate 25 MG TABLET PO ×2 (09:05→20:53)
[2023-03-03] MEDS: Finasteride 5 MG TABLET PO (09:05)
[2023-03-03] MEDS: Gabapentin 100 MG CAPSULE PO ×2 (09:05→20:53)
--- NOTE | 2023-03-03 09:39 | P.PNIM_ITS ---
Subjective Subjective Date of Service: 03/03/23 Interval History: Seen and evaluated this morning sitting in his bed Pain under fair control Review of Systems Review of Systems: Yes all other systems are reviewed and are negative Physical Exam Vital Signs: Vital Signs: Last Vital Signs Temp 97.5 F 03/03/23 07:27 Pulse 67 03/03/23 07:27 Resp 20 03/03/23 07:27 BP 132/60 03/03/23 07:27 Pulse Ox 98 03/03/23 07:27 O2 Del Method Room Air 03/03/23 07:27 O2 Flow Rate 94 02/24/23 03:49 Oxygen Flow Rate 3 01/10/23 18:20 BMI result Body Mass Index 24.2 Const: Other: General: AO X 2, no acute distress GI: +BS, NT, no distention Skin: No rash, Oates in place Neuro:? motor grossly intact Psych: appropriate affect Objective Data Active Medications Acetaminophen (Acetaminophen 325 Mg Tablet) 975 mg PO BID [facility] Last Admin: 03/03/23 09:04 Dose: 975 mg Documented By: RONALDO Acetaminophen (Acetaminophen 325 Mg Tablet) 650 mg PO Q6H PRN PRN Reason: Pain, Moderate(Pain Scale 4-6) Amlodipine Besylate (Amlodipine Besylate 5 Mg Tablet) 5 mg PO DAILY [facility]; Protocol Last Admin: 03/03/23 09:05 Dose: 5 mg Documented By: RONALDO Apixaban (Apixaban 2.5 Mg Tablet) 2.5 mg PO BID [facility] Last Admin: 03/03/23 09:04 Dose: 2.5 mg Documented By: RONALDO Bicalutamide (Bicalutamide 50 Mg Tablet) 50 mg PO TID [facility] Last Admin: 03/03/23 09:05 Dose: 50 mg Documented By: RONALDO Docusate Sodium (Docusate Sodium 100 Mg Capsule) 100 mg PO DAILY PRN PRN Reason: Constipation Last Admin: 01/05/23 08:05 Dose: 100 mg Documented By: MIKE Finasteride (Finasteride 5 Mg Tablet) 5 mg PO DAILY [facility] Last Admin: 03/03/23 09:05 Dose: 5 mg Documented By: RONALDO Gabapentin (Gabapentin 100 Mg Capsule) 100 mg PO BID [facility] Last Admin: 03/03/23 09:05 Dose: 100 mg Documented By: RONALDO Glucose (Glucose Gel 15 Gm Gel..Gram.) 15 gm PO Q15M PRN; Protocol PRN Reason: per Hypoglycemia Standing Ord. Dextrose (D10) 250 mls @ 750 mls/hr IV Q15M PRN; Protocol PRN Reason: per Hypoglycemia Standing Ord. Insulin Human Lispro (Insulin Lispro 100 Unit/Ml 3 Ml Vial) 0 unit SUBCUT QIDACHS [facility]; Protocol Last Admin: 03/03/23 07:30 Dose: Not Given Documented By: RONALDO Non-Admin Reason: No Insulin Coverage Metformin HCl (Metformin Hcl Er 500 Mg Tab.Er.24h) 2,000 mg PO DAILY [facility] Last Admin: 03/03/23 09:04 Dose: 2,000 mg Documented By: RONALDO Metoprolol Tartrate (Metoprolol Tartrate 25 Mg Tablet) 25 mg PO BID [facility]; Protocol Last Admin: 03/03/23 09:05 Dose: 25 mg Documented By: RONALDO Olanzapine (Olanzapine 10 Mg Vial) 5 mg IM DAILY PRN PRN Reason: agitation Olanzapine (Olanzapine 2.5 Mg Tablet) 2.5 mg PO Q4H PRN PRN Reason: Delirium Last Admin: 02/15/23 03:35 Dose: 2.5 mg Documented By: HEIDI Olanzapine (Olanzapine 2.5 Mg Tablet) 2.5 mg PO DAILY [facility] Last Admin: 03/03/23 09:05 Dose: 2.5 mg Documented By: RONALDO Ondansetron HCl (Ondansetron Hcl 4 Mg/2 Ml Vial) 4 mg IVPUSH Q8H PRN PRN Reason: Nausea and Vomiting Ondansetron HCl (Ondansetron Hcl 4 Mg/2 Ml Vial) 4 mg IVPUSH ONCE PRN PRN Reason: Nausea and Vomiting Oxycodone HCl (Oxycodone Hcl Immed Release 5 Mg Tablet) 2.5 mg PO Q8H PRN PRN Reason: Pain, Severe (Pain Scale 7-10) Stop: 04/01/23 10:08 Last Admin: 03/02/23 11:36 Dose: 2.5 mg Documented By: ELIAZAR Pharmacy Consult (Consult Rx Perform Med Rec) 1 each MISCELLANE ONCE PRN PRN Reason: Consult order Pravastatin Sodium (Pravastatin Sodium 40 Mg Tablet) 40 mg PO BEDTIME [facility] Last Admin: 03/02/23 21:47 Dose: 40 mg Documented By: LUIS DANIEL Sodium Chloride (0.9 % Sodium Chloride Flush 3 Ml Syringe) 3 ml IVFLUSH QSHIFT [facility] Last Admin: 03/03/23 07:30 Dose: Not Given Documented By: RONALDO Non-Admin Reason: No Access Tamsulosin HCl (Tamsulosin Hcl 0.4 Mg Capsule) 0.8 mg PO DAILY [facility] Last Admin: 03/03/23 09:05 Dose: 0.8 mg Documented By: RONALDO Labs 03/02/23 05:03 03/02/23 05:03 Labs: Laboratory Results - last 24 hr 03/02/23 03/02/23 03/02/23 10:29 15:57 19:57 POC Glucose 159 H 108 199 H 03/03/23 07:15 POC Glucose 122 H Assessment and Plan (1) Pain due to malignant neoplasm metastatic to bone: Status: Acute (2) Diabetes mellitus: Status: Acute Plan 82-year-old male with a PMH significant for recently diagnosed?AFib on Eliquis, ape-yxdsfjs-rwtisnzqg diabetes, and enlarged prostate who presented to the ED with?generalized weakness.? Patient recently presented to the emergency room 5 days prior on 12/26/2022 for evaluation of lower back pain.? Patient was found to have new onset AFib with RVR and a likely UTI.? CT scan of abdomen and pelvis found a marked heterogeneous enlargement the prostate gland with asymmetric nodular thickening of the left seminal vesicle concerning for primary malignancy.? 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 acute hypoxic respiratory failure 2/2 LLL atelactasis reolved ?Paroxysmal afib with rvr ?rate control, continue metoprolol and Eliquis Metabolic encephalopathy ( acute delirium in backdrop of chronic dementia) likely natural progression of dementia patient lacks capacity to make most medical decisions and unlikely to be able to live safely independently(psychiatry) awaiting placement(insurance pending) ANTONELLA on CKD II resolved after Oates placement failed voiding trial,oates replaced acute on chronic anemia Hb 10.7 with hematocrit 31.6 is stable DMI ?acceptable control on metformin and lispro correctional scale, few high blood pressure reading was paroxysmal afib ?Eliquis, lopressor DNR/DNI dvt prophylaxis - on eliquis ?Requires continued hospitalization: pending safe discharge to SNF (awaiting bed) Time Spent With Patient Time: Total time managing care of this patient today ____ minutes. Quality Stroke Does the patient have a stroke diagnosis?: No VTE Prior VTE?: No VTE Risk Level:: Medical - moderate - high VTE Device Contraindication: Treatment Not Indicated VTE Drug Contraindication: N/A - Med Ordered
[2023-03-03 10:54] LABS: Glucose, Whole Blood 225 mg/dL (60-115)
[2023-03-03] MEDS: Insulin Lispro 100 UNIT/ML 3 ML VIAL SUBCUT (11:46)
[2023-03-03] MEDS: oxyCODONE HCl Immed Release 5 MG TABLET 2.5 MG PO (11:47)
--- NOTE | 2023-03-03 14:06 | MHC.CM.PN ---
[facility] FOLLOW[facility] PT FOR ADMISSION PENDING ESTRELLITA BEING COMPLETED AND APPROVED BY . PER DONALD IN FS, THEY ARE AWAITING FURTHER DOCUMENTS FROM FAMILY (DEED, RENTAL INCOME..) THIS WILL NEED TO BE PROVIDED BEFORE WILL APPROVE AND [facility] WILL ACCEPT. CM CONTINUES TO FOLLOW.
[2023-03-03 16:00] VITALS: BP 135/55; PULSE 96; RESP 20; TEMP 37; O2SAT 99
[2023-03-03 16:00] LABS: Glucose, Whole Blood 81 mg/dL (60-115)
[2023-03-03 19:04] VITALS: BP 117/56; PULSE 70; RESP 14; TEMP 36.1; O2SAT 97
[2023-03-03 20:01] LABS: Glucose, Whole Blood 132 mg/dL (60-115)
[2023-03-03] MEDS: Pravastatin Sodium 40 MG TABLET PO (20:54)
[2023-03-04 03:18] VITALS: BP 125/60; PULSE 70; RESP 16; TEMP 36.2; O2SAT 96
[2023-03-04 07:36] LABS: Glucose, Whole Blood 109 mg/dL (60-115)
[2023-03-04 07:42] VITALS: BP 159/77; PULSE 69; RESP 18; TEMP 36.5; O2SAT 95
[2023-03-04] MEDS: Finasteride 5 MG TABLET PO (09:13)
[2023-03-04] MEDS: metFORMIN HCl ER 500 MG TAB.ER.24H 2000 MG PO (09:14)
[2023-03-04] MEDS: Apixaban 2.5 MG TABLET PO ×2 (09:14→20:33)
[2023-03-04] MEDS: Gabapentin 100 MG CAPSULE PO ×2 (09:14→20:33)
[2023-03-04] MEDS: OLANZapine 2.5 MG TABLET PO (09:14)
[2023-03-04] MEDS: Tamsulosin HCL 0.4 MG CAPSULE 0.8 MG PO (09:14)
[2023-03-04] MEDS: amLODIPine Besylate 5 MG TABLET PO (09:14)
[2023-03-04] MEDS: Acetaminophen 325 MG TABLET 975 MG PO ×2 (09:14→20:33)
[2023-03-04] MEDS: Bicalutamide 50 MG TABLET PO ×3 (09:14→20:34)
[2023-03-04] MEDS: Metoprolol Tartrate 25 MG TABLET PO ×2 (09:15→20:33)
--- NOTE | 2023-03-04 11:28 | P.PNIM_ITS ---
Subjective Subjective Date of Service: 03/04/23 Interval History: Seen and evaluated this morning sitting in his bed Pain under fair control Review of Systems Review of Systems: Yes all other systems are reviewed and are negative Physical Exam Vital Signs: Vital Signs: Last Vital Signs Temp 97.7 F 03/04/23 07:42 Pulse 69 03/04/23 07:42 Resp 18 03/04/23 07:42 BP 159/77 H 03/04/23 07:42 Pulse Ox 95 03/04/23 07:42 O2 Del Method Room Air 03/04/23 07:42 O2 Flow Rate 94 02/24/23 03:49 Oxygen Flow Rate 3 01/10/23 18:20 BMI result Body Mass Index 24.2 Const: Other: General: AO X 2, no acute distress GI: +BS, NT, no distention Skin: No rash, Oates in place Neuro:? motor grossly intact Psych: appropriate affect Objective Data Active Medications Acetaminophen (Acetaminophen 325 Mg Tablet) 975 mg PO BID [facility] Last Admin: 03/04/23 09:14 Dose: 975 mg Documented By: CEZAR Acetaminophen (Acetaminophen 325 Mg Tablet) 650 mg PO Q6H PRN PRN Reason: Pain, Moderate(Pain Scale 4-6) Amlodipine Besylate (Amlodipine Besylate 5 Mg Tablet) 5 mg PO DAILY [facility]; Protocol Last Admin: 03/04/23 09:14 Dose: 5 mg Documented By: CEZAR Apixaban (Apixaban 2.5 Mg Tablet) 2.5 mg PO BID [facility] Last Admin: 03/04/23 09:14 Dose: 2.5 mg Documented By: CEZAR Bicalutamide (Bicalutamide 50 Mg Tablet) 50 mg PO TID [facility] Last Admin: 03/04/23 09:14 Dose: 50 mg Documented By: CEZAR Docusate Sodium (Docusate Sodium 100 Mg Capsule) 100 mg PO DAILY PRN PRN Reason: Constipation Last Admin: 01/05/23 08:05 Dose: 100 mg Documented By: MIKE Finasteride (Finasteride 5 Mg Tablet) 5 mg PO DAILY [facility] Last Admin: 03/04/23 09:13 Dose: 5 mg Documented By: CEZAR Gabapentin (Gabapentin 100 Mg Capsule) 100 mg PO BID [facility] Last Admin: 03/04/23 09:14 Dose: 100 mg Documented By: CEZAR Glucose (Glucose Gel 15 Gm Gel..Gram.) 15 gm PO Q15M PRN; Protocol PRN Reason: per Hypoglycemia Standing Ord. Dextrose (D10) 250 mls @ 750 mls/hr IV Q15M PRN; Protocol PRN Reason: per Hypoglycemia Standing Ord. Insulin Human Lispro (Insulin Lispro 100 Unit/Ml 3 Ml Vial) 0 unit SUBCUT QIDACHS [facility]; Protocol Last Admin: 03/04/23 09:09 Dose: Not Given Documented By: CEZAR Non-Admin Reason: No Insulin Coverage Metformin HCl (Metformin Hcl Er 500 Mg Tab.Er.24h) 2,000 mg PO DAILY [facility] Last Admin: 03/04/23 09:14 Dose: 2,000 mg Documented By: CEZAR Metoprolol Tartrate (Metoprolol Tartrate 25 Mg Tablet) 25 mg PO BID [facility]; Protocol Last Admin: 03/04/23 09:15 Dose: 25 mg Documented By: CEZAR Olanzapine (Olanzapine 10 Mg Vial) 5 mg IM DAILY PRN PRN Reason: agitation Olanzapine (Olanzapine 2.5 Mg Tablet) 2.5 mg PO Q4H PRN PRN Reason: Delirium Last Admin: 02/15/23 03:35 Dose: 2.5 mg Documented By: HEIDI Olanzapine (Olanzapine 2.5 Mg Tablet) 2.5 mg PO DAILY [facility] Last Admin: 03/04/23 09:14 Dose: 2.5 mg Documented By: CEZAR Ondansetron HCl (Ondansetron Hcl 4 Mg/2 Ml Vial) 4 mg IVPUSH Q8H PRN PRN Reason: Nausea and Vomiting Ondansetron HCl (Ondansetron Hcl 4 Mg/2 Ml Vial) 4 mg IVPUSH ONCE PRN PRN Reason: Nausea and Vomiting Oxycodone HCl (Oxycodone Hcl Immed Release 5 Mg Tablet) 2.5 mg PO Q8H PRN PRN Reason: Pain, Severe (Pain Scale 7-10) Stop: 04/01/23 10:08 Last Admin: 03/03/23 11:47 Dose: 2.5 mg Documented By: RONALDO Pharmacy Consult (Consult Rx Perform Med Rec) 1 each MISCELLANE ONCE PRN PRN Reason: Consult order Polyethylene Glycol (Polyethylene Glycol 3350 17 Gm Powd.Pack) 17 gm PO DAILY [facility] Pravastatin Sodium (Pravastatin Sodium 40 Mg Tablet) 40 mg PO BEDTIME [facility] Last Admin: 03/03/23 20:54 Dose: 40 mg Documented By: PREETI Sodium Chloride (0.9 % Sodium Chloride Flush 3 Ml Syringe) 3 ml IVFLUSH QSHIFT [facility] Last Admin: 03/04/23 09:10 Dose: Not Given Documented By: CEZAR Non-Admin Reason: No Access Tamsulosin HCl (Tamsulosin Hcl 0.4 Mg Capsule) 0.8 mg PO DAILY [facility] Last Admin: 03/04/23 09:14 Dose: 0.8 mg Documented By: CEZAR Labs 03/02/23 05:03 03/02/23 05:03 Labs: Laboratory Results - last 24 hr 03/03/23 03/03/23 03/04/23 15:54 19:55 07:21 POC Glucose 81 132 H 109 Assessment and Plan (1) Pain due to malignant neoplasm metastatic to bone: Status: Acute (2) Metastasis to bone: Status: Acute Plan 82-year-old male with a PMH significant for recently diagnosed?AFib on Eliquis, [id number] diabetes, and enlarged prostate who presented to the ED with?generalized weakness.? Patient recently presented to the emergency room 5 days prior on 12/26/2022 for evaluation of lower back pain.? Patient was found to have new onset AFib with RVR and a likely UTI.? CT scan of abdomen and pelvis found a marked heterogeneous enlargement the prostate gland with asymmetric nodular thickening of the left seminal vesicle concerning for primary malignancy.? 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 acute hypoxic respiratory failure 2/2 LLL atelactasis reolved ?Paroxysmal afib with rvr ?rate control, continue metoprolol and Eliquis Metabolic encephalopathy ( acute delirium in backdrop of chronic dementia) likely natural progression of dementia patient lacks capacity to make most medical decisions and unlikely to be able to live safely independently(psychiatry) awaiting placement(insurance pending) ANTONELLA on CKD II resolved after Oates placement failed voiding trial,oates replaced acute on chronic anemia Hb 10.7 with hematocrit 31.6 is stable DMI ?acceptable control on metformin and lispro correctional scale, few high blood pressure reading was paroxysmal afib ?Eliquis, lopressor DNR/DNI dvt prophylaxis - on eliquis ?Requires continued hospitalization: pending safe discharge to SNF (awaiting bed) Time Spent With Patient Time: Total time managing care of this patient today ____ minutes. Quality Stroke Does the patient have a stroke diagnosis?: No VTE Prior VTE?: No VTE Risk Level:: Medical - moderate - high VTE Device Contraindication: Treatment Not Indicated VTE Drug Contraindication: N/A - Med Ordered
[2023-03-04 11:32] LABS: Glucose, Whole Blood 157 mg/dL (60-115)
--- NOTE | 2023-03-04 11:37 | MHC.CM.PN ---
[facility] on [employer] j[facility]den
[2023-03-04] MEDS: Insulin Lispro 100 UNIT/ML 3 ML VIAL SUBCUT ×2 (12:00→17:36)
[2023-03-04] MEDS: polyethylene glycoL 3350 17 GM POWD.PACK PO (12:01)
--- NOTE | 2023-03-04 12:41 | MHC.CM.PN ---
spoke with trena jerome /financal services who reports [employer] jayden completed [facility] who is following pt is requesting a psi that needs to be signed by pt to allow [facility] to get imfo from [employer] she will be having this pt sign psi today
[2023-03-04 14:52] VITALS: BP 112/53; PULSE 90; RESP 18; TEMP 36.3; O2SAT 97
[2023-03-04 16:26] LABS: Glucose, Whole Blood 109 mg/dL (60-115)
[2023-03-04 19:20] VITALS: BP 144/70; PULSE 75; RESP 16; TEMP 36.3; O2SAT 98
[2023-03-04] MEDS: Pravastatin Sodium 40 MG TABLET PO (20:33)
[2023-03-04 21:08] LABS: Glucose, Whole Blood 140 mg/dL (60-115)
[2023-03-05 03:04] VITALS: BP 133/65; PULSE 72; RESP 18; TEMP 36.4; O2SAT 97
[2023-03-05 07:13] VITALS: BP 146/68; PULSE 72; RESP 16; TEMP 36.2; O2SAT 97
[2023-03-05 08:03] LABS: Glucose, Whole Blood 221 mg/dL (60-115)
[2023-03-05] MEDS: Acetaminophen 325 MG TABLET 975 MG PO ×2 (08:21→21:02)
[2023-03-05] MEDS: Apixaban 2.5 MG TABLET PO ×2 (08:22→21:03)
[2023-03-05] MEDS: Metoprolol Tartrate 25 MG TABLET PO ×2 (08:22→21:03)
[2023-03-05] MEDS: Gabapentin 100 MG CAPSULE PO ×2 (08:22→21:03)
[2023-03-05] MEDS: OLANZapine 2.5 MG TABLET PO (08:22)
[2023-03-05] MEDS: Tamsulosin HCL 0.4 MG CAPSULE 0.8 MG PO (08:22)
[2023-03-05] MEDS: amLODIPine Besylate 5 MG TABLET PO (08:23)
[2023-03-05] MEDS: metFORMIN HCl ER 500 MG TAB.ER.24H 2000 MG PO (08:23)
[2023-03-05] MEDS: Finasteride 5 MG TABLET PO (08:23)
[2023-03-05] MEDS: Bicalutamide 50 MG TABLET PO ×3 (08:23→21:03)
[2023-03-05 11:25] LABS: Glucose, Whole Blood 115 mg/dL (60-115)
--- NOTE | 2023-03-05 11:35 | P.PNIM_ITS ---
Subjective Subjective Date of Service: 03/05/23 Interval History: Seen and evaluated this morning sitting in his bed Pain under fair control Physical Exam Vital Signs: Vital Signs: Last Vital Signs Temp 97.2 F 03/05/23 07:13 Pulse 72 03/05/23 07:13 Resp 16 03/05/23 07:13 BP 146/68 H 03/05/23 07:13 Pulse Ox 97 03/05/23 07:13 O2 Del Method Room Air 03/05/23 07:13 O2 Flow Rate 94 02/24/23 03:49 Oxygen Flow Rate 3 01/10/23 18:20 BMI result Body Mass Index 24.2 Const: Other: General: AO X 2, no acute distress GI: +BS, NT, no distention Skin: No rash, Oates in place Neuro:? motor grossly intact Psych: appropriate affect Objective Data Active Medications Acetaminophen (Acetaminophen 325 Mg Tablet) 975 mg PO BID [facility] Last Admin: 03/05/23 08:21 Dose: 975 mg Documented By: ROMANA Acetaminophen (Acetaminophen 325 Mg Tablet) 650 mg PO Q6H PRN PRN Reason: Pain, Moderate(Pain Scale 4-6) Amlodipine Besylate (Amlodipine Besylate 5 Mg Tablet) 5 mg PO DAILY [facility]; Protocol Last Admin: 03/05/23 08:23 Dose: 5 mg Documented By: ROMANA Apixaban (Apixaban 2.5 Mg Tablet) 2.5 mg PO BID [facility] Last Admin: 03/05/23 08:22 Dose: 2.5 mg Documented By: ROMANA Bicalutamide (Bicalutamide 50 Mg Tablet) 50 mg PO TID [facility] Last Admin: 03/05/23 08:23 Dose: 50 mg Documented By: ROMANA Docusate Sodium (Docusate Sodium 100 Mg Capsule) 100 mg PO DAILY PRN PRN Reason: Constipation Last Admin: 01/05/23 08:05 Dose: 100 mg Documented By: MIKE Finasteride (Finasteride 5 Mg Tablet) 5 mg PO DAILY [facility] Last Admin: 03/05/23 08:23 Dose: 5 mg Documented By: ROMANA Gabapentin (Gabapentin 100 Mg Capsule) 100 mg PO BID [facility] Last Admin: 03/05/23 08:22 Dose: 100 mg Documented By: ROMANA Glucose (Glucose Gel 15 Gm Gel..Gram.) 15 gm PO Q15M PRN; Protocol PRN Reason: per Hypoglycemia Standing Ord. Dextrose (D10) 250 mls @ 750 mls/hr IV Q15M PRN; Protocol PRN Reason: per Hypoglycemia Standing Ord. Insulin Human Lispro (Insulin Lispro 100 Unit/Ml 3 Ml Vial) 0 unit SUBCUT QIDACHS [facility]; Protocol Last Admin: 03/05/23 08:20 Dose: Not Given Documented By: ROMANA Non-Admin Reason: refused. states, i didn't eat nothing . Metformin HCl (Metformin Hcl Er 500 Mg Tab.Er.24h) 2,000 mg PO DAILY [facility] Last Admin: 03/05/23 08:23 Dose: 2,000 mg Documented By: ROMANA Metoprolol Tartrate (Metoprolol Tartrate 25 Mg Tablet) 25 mg PO BID [facility]; Protocol Last Admin: 03/05/23 08:22 Dose: 25 mg Documented By: ROMANA Olanzapine (Olanzapine 10 Mg Vial) 5 mg IM DAILY PRN PRN Reason: agitation Olanzapine (Olanzapine 2.5 Mg Tablet) 2.5 mg PO Q4H PRN PRN Reason: Delirium Last Admin: 02/15/23 03:35 Dose: 2.5 mg Documented By: HEIDI Olanzapine (Olanzapine 2.5 Mg Tablet) 2.5 mg PO DAILY [facility] Last Admin: 03/05/23 08:22 Dose: 2.5 mg Documented By: ROMANA Ondansetron HCl (Ondansetron Hcl 4 Mg/2 Ml Vial) 4 mg IVPUSH Q8H PRN PRN Reason: Nausea and Vomiting Ondansetron HCl (Ondansetron Hcl 4 Mg/2 Ml Vial) 4 mg IVPUSH ONCE PRN PRN Reason: Nausea and Vomiting Oxycodone HCl (Oxycodone Hcl Immed Release 5 Mg Tablet) 2.5 mg PO Q8H PRN PRN Reason: Pain, Severe (Pain Scale 7-10) Stop: 04/01/23 10:08 Last Admin: 03/03/23 11:47 Dose: 2.5 mg Documented By: RONALDO Pharmacy Consult (Consult Rx Perform Med Rec) 1 each MISCELLANE ONCE PRN PRN Reason: Consult order Polyethylene Glycol (Polyethylene Glycol 3350 17 Gm Powd.Pack) 17 gm PO DAILY [facility] Last Admin: 03/05/23 08:23 Dose: Not Given Documented By: ROMANA Non-Admin Reason: Patient Refused Pravastatin Sodium (Pravastatin Sodium 40 Mg Tablet) 40 mg PO BEDTIME [facility] Last Admin: 03/04/23 20:33 Dose: 40 mg Documented By: PADMINI Sodium Chloride (0.9 % Sodium Chloride Flush 3 Ml Syringe) 3 ml IVFLUSH QSHIFT [facility] Last Admin: 03/05/23 08:19 Dose: Not Given Documented By: ROMANA Non-Admin Reason: No Insulin Coverage Tamsulosin HCl (Tamsulosin Hcl 0.4 Mg Capsule) 0.8 mg PO DAILY [facility] Last Admin: 03/05/23 08:22 Dose: 0.8 mg Documented By: ROMANA Labs 03/02/23 05:03 03/02/23 05:03 Labs: Laboratory Results - last 24 hr 03/04/23 03/04/23 03/05/23 16:22 20:32 07:22 POC Glucose 109 140 H 221 H 03/05/23 11:21 POC Glucose 115 Assessment and Plan (1) Cognitive disorder: Status: Acute (2) Pain due to malignant neoplasm metastatic to bone: Status: Acute Plan 82-year-old male with a PMH significant for recently diagnosed?AFib on Eliquis, ezm-jlwvxag-[id number] diabetes, and enlarged prostate who presented to the ED with?generalized weakness.? Patient recently presented to the emergency room 5 days prior on 12/26/2022 for evaluation of lower back pain.? Patient was found to have new onset AFib with RVR and a likely UTI.? CT scan of abdomen and pelvis found a marked heterogeneous enlargement the prostate gland with asymmetric nodular thickening of the left seminal vesicle concerning for primary malignancy.? 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 acute hypoxic respiratory failure 2/2 LLL atelactasis reolved ?Paroxysmal afib with rvr ?rate control, continue metoprolol and Eliquis Metabolic encephalopathy ( acute delirium in backdrop of chronic dementia) likely natural progression of dementia patient lacks capacity to make most medical decisions and unlikely to be able to live safely independently(psychiatry) awaiting placement(insurance pending) ANTONELLA on CKD II resolved after Oates placement failed voiding trial,oates replaced acute on chronic anemia Hb 10.7 with hematocrit 31.6 is stable DMI ?acceptable control on metformin and lispro correctional scale, few high blood pressure reading was paroxysmal afib ?Eliquis, lopressor DNR/DNI dvt prophylaxis - on eliquis ?Requires continued hospitalization: pending safe discharge to SNF (awaiting bed) Time Spent With Patient Time: Total time managing care of this patient today ____ minutes. Quality Stroke Does the patient have a stroke diagnosis?: No VTE Prior VTE?: No VTE Risk Level:: Medical - moderate - high VTE Device Contraindication: Treatment Not Indicated VTE Drug Contraindication: N/A - Med Ordered
[2023-03-05 15:52] VITALS: BP 116/58; PULSE 71; RESP 17; TEMP 36.6; O2SAT 98
[2023-03-05 16:35] LABS: Glucose, Whole Blood 138 mg/dL (60-115)
[2023-03-05 20:00] VITALS: BP 120/58; PULSE 69; RESP 17; TEMP 36.6; O2SAT 98
[2023-03-05 20:36] LABS: Glucose, Whole Blood 178 mg/dL (60-115)
[2023-03-05] MEDS: Insulin Lispro 100 UNIT/ML 3 ML VIAL SUBCUT (20:58)
[2023-03-05] MEDS: Pravastatin Sodium 40 MG TABLET PO (21:03)
[2023-03-06 03:44] VITALS: BP 138/85; PULSE 65; RESP 18; TEMP 37.2; O2SAT 96
[2023-03-06 07:23] VITALS: BP 135/67; PULSE 74; RESP 16; TEMP 36.4; O2SAT 96
[2023-03-06 07:50] LABS: Glucose, Whole Blood 125 mg/dL (60-115)
[2023-03-06] MEDS: Acetaminophen 325 MG TABLET 975 MG PO ×2 (09:43→23:24)
[2023-03-06] MEDS: oxyCODONE HCl Immed Release 5 MG TABLET 2.5 MG PO (09:50)
--- NOTE | 2023-03-06 10:23 | HO.PM.IMPN ---
Subjective Subjective Date of Service: 03/06/23 Interval History: Seen and evaluated this morning sitting in his bed Denies complaints Pain under fair control Review of Systems Review of Systems: Yes all other systems are reviewed and are negative Physical Exam Vital Signs: Vital Signs: Last Vital Signs Temp 97.6 F 03/06/23 07:23 Pulse 74 03/06/23 07:23 Resp 16 03/06/23 07:23 BP 135/67 03/06/23 07:23 Pulse Ox 96 03/06/23 07:23 O2 Del Method Room Air 03/06/23 07:23 O2 Flow Rate 94 02/24/23 03:49 Oxygen Flow Rate 3 01/10/23 18:20 BMI result Body Mass Index 24.2 Const: Other: General: AO X 2, no acute distress GI: +BS, NT, no distention Skin: No rash, Oates in place Neuro:? motor grossly intact Psych: appropriate affect Objective Data Active Medications Acetaminophen (Acetaminophen 325 Mg Tablet) 975 mg PO BID [facility] Last Admin: 03/06/23 09:43 Dose: 975 mg Documented By: ROMANA Acetaminophen (Acetaminophen 325 Mg Tablet) 650 mg PO Q6H PRN PRN Reason: Pain, Moderate(Pain Scale 4-6) Amlodipine Besylate (Amlodipine Besylate 5 Mg Tablet) 5 mg PO DAILY [facility]; Protocol Last Admin: 03/05/23 08:23 Dose: 5 mg Documented By: ROMANA Apixaban (Apixaban 2.5 Mg Tablet) 2.5 mg PO BID [facility] Last Admin: 03/05/23 21:03 Dose: 2.5 mg Documented By: KATH Bicalutamide (Bicalutamide 50 Mg Tablet) 50 mg PO TID [facility] Last Admin: 03/05/23 21:03 Dose: 50 mg Documented By: KATH Docusate Sodium (Docusate Sodium 100 Mg Capsule) 100 mg PO DAILY PRN PRN Reason: Constipation Last Admin: 01/05/23 08:05 Dose: 100 mg Documented By: MIKE Finasteride (Finasteride 5 Mg Tablet) 5 mg PO DAILY [facility] Last Admin: 03/05/23 08:23 Dose: 5 mg Documented By: ROMANA Gabapentin (Gabapentin 100 Mg Capsule) 100 mg PO BID [facility] Last Admin: 03/05/23 21:03 Dose: 100 mg Documented By: KATH Glucose (Glucose Gel 15 Gm Gel..Gram.) 15 gm PO Q15M PRN; Protocol PRN Reason: per Hypoglycemia Standing Ord. Dextrose (D10) 250 mls @ 750 mls/hr IV Q15M PRN; Protocol PRN Reason: per Hypoglycemia Standing Ord. Insulin Human Lispro (Insulin Lispro 100 Unit/Ml 3 Ml Vial) 0 unit SUBCUT QIDACHS [facility]; Protocol Last Admin: 03/06/23 09:16 Dose: Not Given Documented By: ROMANA Non-Admin Reason: No Insulin Coverage Metformin HCl (Metformin Hcl Er 500 Mg Tab.Er.24h) 2,000 mg PO DAILY [facility] Last Admin: 03/05/23 08:23 Dose: 2,000 mg Documented By: ROMANA Metoprolol Tartrate (Metoprolol Tartrate 25 Mg Tablet) 25 mg PO BID [facility]; Protocol Last Admin: 03/05/23 21:03 Dose: 25 mg Documented By: KATH Olanzapine (Olanzapine 10 Mg Vial) 5 mg IM DAILY PRN PRN Reason: agitation Olanzapine (Olanzapine 2.5 Mg Tablet) 2.5 mg PO Q4H PRN PRN Reason: Delirium Last Admin: 02/15/23 03:35 Dose: 2.5 mg Documented By: HEIDI Olanzapine (Olanzapine 2.5 Mg Tablet) 2.5 mg PO DAILY [facility] Last Admin: 03/05/23 08:22 Dose: 2.5 mg Documented By: ROMANA Ondansetron HCl (Ondansetron Hcl 4 Mg/2 Ml Vial) 4 mg IVPUSH Q8H PRN PRN Reason: Nausea and Vomiting Ondansetron HCl (Ondansetron Hcl 4 Mg/2 Ml Vial) 4 mg IVPUSH ONCE PRN PRN Reason: Nausea and Vomiting Oxycodone HCl (Oxycodone Hcl Immed Release 5 Mg Tablet) 2.5 mg PO Q8H PRN PRN Reason: Pain, Severe (Pain Scale 7-10) Stop: 04/01/23 10:08 Last Admin: 03/06/23 09:50 Dose: 2.5 mg Documented By: ROMANA Pharmacy Consult (Consult Rx Perform Med Rec) 1 each MISCELLANE ONCE PRN PRN Reason: Consult order Polyethylene Glycol (Polyethylene Glycol 3350 17 Gm Powd.Pack) 17 gm PO DAILY [facility] Last Admin: 03/06/23 09:44 Dose: Not Given Documented By: ROMANA Non-Admin Reason: Patient Refused Pravastatin Sodium (Pravastatin Sodium 40 Mg Tablet) 40 mg PO BEDTIME [facility] Last Admin: 03/05/23 21:03 Dose: 40 mg Documented By: KATH Sodium Chloride (0.9 % Sodium Chloride Flush 3 Ml Syringe) 3 ml IVFLUSH QSHIFT [facility] Last Admin: 03/06/23 09:18 Dose: Not Given Documented By: ROMANA Non-Admin Reason: No Access Tamsulosin HCl (Tamsulosin Hcl 0.4 Mg Capsule) 0.8 mg PO DAILY [facility] Last Admin: 03/05/23 08:22 Dose: 0.8 mg Documented By: ROMANA Labs 03/02/23 05:03 03/02/23 05:03 Labs: Laboratory Results - last 24 hr 03/05/23 03/05/23 03/05/23 11:21 15:54 20:16 POC Glucose 115 138 H 178 H 03/06/23 07:25 POC Glucose 125 H Assessment and Plan (1) Cognitive disorder: Status: Acute (2) Pain due to malignant neoplasm metastatic to bone: Status: Acute Plan 82-year-old male with a PMH significant for recently diagnosed?AFib on Eliquis, ssq-rvhmynf-xyjmopyld diabetes, and enlarged prostate who presented to the ED with?generalized weakness.? Patient recently presented to the emergency room 5 days prior on 12/26/2022 for evaluation of lower back pain.? Patient was found to have new onset AFib with RVR and a likely UTI.? CT scan of abdomen and pelvis found a marked heterogeneous enlargement the prostate gland with asymmetric nodular thickening of the left seminal vesicle concerning for primary malignancy.? 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 acute hypoxic respiratory failure 2/2 LLL atelactasis reolved ?Paroxysmal afib with rvr ?rate control, continue metoprolol and Eliquis Metabolic encephalopathy ( acute delirium in backdrop of chronic dementia) likely natural progression of dementia patient lacks capacity to make most medical decisions and unlikely to be able to live safely independently(psychiatry) awaiting placement(insurance pending) ANTONELLA on CKD II resolved after Oates placement failed voiding trial,oates replaced acute on chronic anemia Hb 10.7 with hematocrit 31.6 is stable DMI ?acceptable control on metformin and lispro correctional scale, few high blood pressure reading was paroxysmal afib ?Eliquis, lopressor DNR/DNI dvt prophylaxis - on eliquis ?Requires continued hospitalization: pending safe discharge to SNF (awaiting bed) Time Spent With Patient Time: Total time managing care of this patient today ____ minutes. Quality Stroke Does the patient have a stroke diagnosis?: No VTE Prior VTE?: No VTE Risk Level:: Medical - moderate - high VTE Device Contraindication: Treatment Not Indicated VTE Drug Contraindication: N/A - Med Ordered
[2023-03-06 11:23] LABS: Glucose, Whole Blood 177 mg/dL (60-115)
[2023-03-06 15:54] VITALS: BP 140/70; PULSE 68; RESP 16; TEMP 36.3; O2SAT 98
[2023-03-06 16:19] LABS: Glucose, Whole Blood 182 mg/dL (60-115)
[2023-03-06] MEDS: Acetaminophen 325 MG TABLET 650 MG PO (16:24)
--- NOTE | 2023-03-06 17:27 | PC.NURSE ---
Patient refused all po meds throughout the day except for tylenol and oxycodone. States, I don't need anything else . Educated patient and notified .
[2023-03-06 20:00] VITALS: BP 135/69; PULSE 67; RESP 16; TEMP 36.4; O2SAT 99
[2023-03-06 20:20] LABS: Glucose, Whole Blood 266 mg/dL (60-115)
[2023-03-06] MEDS: Apixaban 2.5 MG TABLET PO (23:23)
[2023-03-06] MEDS: Insulin Lispro 100 UNIT/ML 3 ML VIAL SUBCUT (23:27)
[2023-03-07 01:00] VITALS: BP 152/73; PULSE 75; RESP 16; TEMP 36.2; O2SAT 95
[2023-03-07 07:13] VITALS: BP 189/79; PULSE 76; RESP 16; TEMP 36.1; O2SAT 96
[2023-03-07 07:27] LABS: Glucose, Whole Blood 130 mg/dL (60-115)
[2023-03-07 11:07] LABS: Glucose, Whole Blood 332 mg/dL (60-115)
--- NOTE | 2023-03-07 11:54 | PC.NURSE ---
pt was very agitated this morning. Agreed for me to give him his medications and then decided that he wasn't going to take them because he stated that we are not looking out for his best interest and we could be poisoning him without his knowledge. After multiple attempts to talk to him, he handed me back his medications. I undocumented them in the computer as not being given due to him refusing them. At lunch time he flat out refused his insulin for a sugar of 332. I again made multiple attempts and he informed me that it his body and his right to refuse.
--- NOTE | 2023-03-07 11:55 | MHC.CLN ---
F/U STAGE II TO [facility]. DIET=DIABETIC 2000 [facility]. NOT ACCEPTING ENSURE SUPPLEMENT AND DISCONTINUED. CONTINUES WITH USUALLY GOOD INTAKE AT [facility], WITH MOST 100%. DX PROSTATE CANCER WITH METS TO BONE. FOLLOW FOR INTAKE AND WOUND HEALING. RD TO FOLLOW WEEKLY.
--- NOTE | 2023-03-07 12:51 | HO.PM.IMPN ---
Subjective Subjective Date of Service: 03/07/23 Interval History: Seen and evaluated this morning sitting in his bed refusing his medications more agitated this morning Pain under fair control Review of Systems Review of Systems: Yes all other systems are reviewed and are negative Physical Exam Vital Signs: Vital Signs: Last Vital Signs Temp 96.9 F 03/07/23 07:13 Pulse 76 03/07/23 07:13 Resp 16 03/07/23 07:13 BP 189/79 H 03/07/23 07:13 Pulse Ox 96 03/07/23 07:13 O2 Del Method Room Air 03/07/23 07:13 O2 Flow Rate 94 02/24/23 03:49 Oxygen Flow Rate 3 01/10/23 18:20 BMI result Body Mass Index 24.2 Const: Other: General: AO X 2, no acute distress GI: +BS, NT, no distention Skin: No rash, no ulcers Neuro:? motor grossly intact Psych: more agitated and inappropriate behaviour Objective Data Active Medications Acetaminophen (Acetaminophen 325 Mg Tablet) 975 mg PO BID [facility] Last Admin: 03/07/23 11:48 Dose: Not Given Documented By: CEZAR Non-Admin Reason: Patient Refused Acetaminophen (Acetaminophen 325 Mg Tablet) 650 mg PO Q6H PRN PRN Reason: Pain, Moderate(Pain Scale 4-6) Last Admin: 03/06/23 16:24 Dose: 650 mg Documented By: ROMANA Amlodipine Besylate (Amlodipine Besylate 5 Mg Tablet) 5 mg PO DAILY [facility]; Protocol Last Admin: 03/07/23 11:51 Dose: Not Given Documented By: CEZAR Non-Admin Reason: Patient Refused Apixaban (Apixaban 2.5 Mg Tablet) 2.5 mg PO BID [facility] Last Admin: 03/07/23 11:50 Dose: Not Given Documented By: CEZAR Non-Admin Reason: Patient Refused Bicalutamide (Bicalutamide 50 Mg Tablet) 50 mg PO TID [facility] Last Admin: 03/07/23 11:48 Dose: Not Given Documented By: CEZAR Non-Admin Reason: Patient Refused Docusate Sodium (Docusate Sodium 100 Mg Capsule) 100 mg PO DAILY PRN PRN Reason: Constipation Last Admin: 01/05/23 08:05 Dose: 100 mg Documented By: MIKE Finasteride (Finasteride 5 Mg Tablet) 5 mg PO DAILY [facility] Last Admin: 03/07/23 11:53 Dose: Not Given Documented By: CEZAR Non-Admin Reason: Patient Refused Gabapentin (Gabapentin 100 Mg Capsule) 100 mg PO BID [facility] Last Admin: 03/07/23 11:50 Dose: Not Given Documented By: CEZAR Non-Admin Reason: Patient Refused Glucose (Glucose Gel 15 Gm Gel..Gram.) 15 gm PO Q15M PRN; Protocol PRN Reason: per Hypoglycemia Standing Ord. Dextrose (D10) 250 mls @ 750 mls/hr IV Q15M PRN; Protocol PRN Reason: per Hypoglycemia Standing Ord. Insulin Human Lispro (Insulin Lispro 100 Unit/Ml 3 Ml Vial) 0 unit SUBCUT QIDACHS [facility]; Protocol Last Admin: 03/07/23 11:44 Dose: Not Given Documented By: CEZAR Non-Admin Reason: Patient Refused Metformin HCl (Metformin Hcl Er 500 Mg Tab.Er.24h) 2,000 mg PO DAILY [facility] Last Admin: 03/07/23 11:53 Dose: Not Given Documented By: CEZAR Non-Admin Reason: Patient Refused Metoprolol Tartrate (Metoprolol Tartrate 25 Mg Tablet) 25 mg PO BID [facility]; Protocol Last Admin: 03/07/23 11:51 Dose: Not Given Documented By: CEZAR Non-Admin Reason: Patient Refused Olanzapine (Olanzapine 10 Mg Vial) 5 mg IM DAILY PRN PRN Reason: agitation Olanzapine (Olanzapine 2.5 Mg Tablet) 2.5 mg PO Q4H PRN PRN Reason: Delirium Last Admin: 02/15/23 03:35 Dose: 2.5 mg Documented By: HEIDI Olanzapine (Olanzapine 2.5 Mg Tablet) 2.5 mg PO DAILY [facility] Last Admin: 03/07/23 11:53 Dose: Not Given Documented By: CEZAR Non-Admin Reason: Patient Refused Ondansetron HCl (Ondansetron Hcl 4 Mg/2 Ml Vial) 4 mg IVPUSH Q8H PRN PRN Reason: Nausea and Vomiting Ondansetron HCl (Ondansetron Hcl 4 Mg/2 Ml Vial) 4 mg IVPUSH ONCE PRN PRN Reason: Nausea and Vomiting Pharmacy Consult (Consult Rx Perform Med Rec) 1 each MISCELLANE ONCE PRN PRN Reason: Consult order Polyethylene Glycol (Polyethylene Glycol 3350 17 Gm Powd.Pack) 17 gm PO DAILY [facility] Last Admin: 03/07/23 11:53 Dose: Not Given Documented By: CEZAR Non-Admin Reason: Patient Refused Pravastatin Sodium (Pravastatin Sodium 40 Mg Tablet) 40 mg PO BEDTIME [facility] Last Admin: 03/06/23 23:32 Dose: Not Given Documented By: PADMINI Non-Admin Reason: Patient Refused Sodium Chloride (0.9 % Sodium Chloride Flush 3 Ml Syringe) 3 ml IVFLUSH QSHIFT [facility] Last Admin: 03/07/23 07:43 Dose: Not Given Documented By: CEZAR Non-Admin Reason: No Access Tamsulosin HCl (Tamsulosin Hcl 0.4 Mg Capsule) 0.8 mg PO DAILY [facility] Last Admin: 03/07/23 11:54 Dose: Not Given Documented By: CEZAR Non-Admin Reason: Patient Refused Labs 03/02/23 05:03 03/02/23 05:03 Labs: Laboratory Results - last 24 hr 03/06/23 03/06/23 03/07/23 15:56 20:13 07:16 POC Glucose 182 H 266 H 130 H 03/07/23 11:00 POC Glucose 332 H Assessment and Plan (1) Metastasis to bone: Status: Acute (2) Pain due to malignant neoplasm metastatic to bone: Status: Acute Plan 82-year-old male with a PMH significant for recently diagnosed?AFib on Eliquis, [id number] diabetes, and enlarged prostate who presented to the ED with?generalized weakness.? Patient recently presented to the emergency room 5 days prior on 12/26/2022 for evaluation of lower back pain.? Patient was found to have new onset AFib with RVR and a likely UTI.? CT scan of abdomen and pelvis found a marked heterogeneous enlargement the prostate gland with asymmetric nodular thickening of the left seminal vesicle concerning for primary malignancy.? 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 Congnitive problem with restlessness wax and wane reorientation Zyprexa PO daily and PRN Zyprexa IM PRN acute hypoxic respiratory failure 2/2 LLL atelactasis reolved ?Paroxysmal afib with rvr ?rate control, continue metoprolol and Eliquis Metabolic encephalopathy ( acute delirium in backdrop of chronic dementia) likely natural progression of dementia patient lacks capacity to make most medical decisions and unlikely to be able to live safely independently(psychiatry) awaiting placement(insurance pending) ANTONELLA on CKD II resolved after Oates placement failed voiding trial,oates replaced acute on chronic anemia Hb 10.7 with hematocrit 31.6 is stable DMI ?acceptable control on metformin and lispro correctional scale, few high blood pressure reading was paroxysmal afib ?Eliquis, lopressor DNR/DNI dvt prophylaxis - on eliquis ?Requires continued hospitalization: pending safe discharge to SNF (awaiting bed) Time Spent With Patient Time: Total time managing care of this patient today ____ minutes. Quality Stroke Does the patient have a stroke diagnosis?: No VTE Prior VTE?: No VTE Risk Level:: Medical - moderate - high VTE Device Contraindication: Treatment Not Indicated VTE Drug Contraindication: N/A - Med Ordered
[2023-03-07] MEDS: OLANZapine 2.5 MG TABLET PO ×2 (13:18→13:19)
--- NOTE | 2023-03-07 15:45 | MHC.CM.PN ---
pts placement pending completeion of [facility] helath jayden
[2023-03-07 16:00] VITALS: BP 124/62; PULSE 99; RESP 16; TEMP 36.8; O2SAT 97
[2023-03-07 16:20] LABS: Glucose, Whole Blood 301 mg/dL (60-115)
[2023-03-07] MEDS: Insulin Lispro 100 UNIT/ML 3 ML VIAL SUBCUT (17:17)
[2023-03-07 20:00] VITALS: BP 124/62; PULSE 99; RESP 16; TEMP 36.8
[2023-03-07 20:47] LABS: Glucose, Whole Blood 243 mg/dL (60-115)
[2023-03-07] MEDS: Acetaminophen 325 MG TABLET 975 MG PO (21:06)
[2023-03-08 03:32] VITALS: BP 167/86; PULSE 72; RESP 16; TEMP 36.2; O2SAT 96
[2023-03-08 07:06] VITALS: BP 141/76; PULSE 75; RESP 16; TEMP 36.9; O2SAT 96
[2023-03-08 07:29] LABS: Glucose, Whole Blood 149 mg/dL (60-115)
[2023-03-08 08:00] VITALS: BP 141/76; PULSE 75; RESP 16; TEMP 36.9; O2SAT 96
[2023-03-08] MEDS: metFORMIN HCl ER 500 MG TAB.ER.24H 2000 MG PO (08:30)
[2023-03-08] MEDS: Tamsulosin HCL 0.4 MG CAPSULE 0.8 MG PO (08:30)
[2023-03-08] MEDS: Bicalutamide 50 MG TABLET PO ×2 (08:31→20:23)
[2023-03-08] MEDS: Apixaban 2.5 MG TABLET PO ×2 (08:31→20:22)
[2023-03-08] MEDS: OLANZapine 2.5 MG TABLET PO (08:31)
[2023-03-08] MEDS: Finasteride 5 MG TABLET PO (08:31)
[2023-03-08] MEDS: polyethylene glycoL 3350 17 GM POWD.PACK PO (08:31)
[2023-03-08] MEDS: Acetaminophen 325 MG TABLET 975 MG PO ×2 (08:31→20:23)
[2023-03-08] MEDS: amLODIPine Besylate 5 MG TABLET PO (08:31)
[2023-03-08] MEDS: Gabapentin 100 MG CAPSULE PO ×2 (08:31→20:22)
[2023-03-08 11:24] LABS: Glucose, Whole Blood 236 mg/dL (60-115)
--- NOTE | 2023-03-08 11:45 | HO.PM.IMPN ---
Subjective Subjective Date of Service: 03/08/23 Interval History: Seen and evaluated this morning sitting in his bed accepts to take his medications Pain under fair control Review of Systems Review of Systems: Yes all other systems are reviewed and are negative Physical Exam Vital Signs: Vital Signs: Last Vital Signs Temp 98.4 F 03/08/23 08:00 Pulse 75 03/08/23 08:00 Resp 16 03/08/23 08:00 BP 141/76 H 03/08/23 08:00 Pulse Ox 96 03/08/23 08:00 O2 Del Method Room Air 03/08/23 08:00 O2 Flow Rate 94 02/24/23 03:49 Oxygen Flow Rate 3 01/10/23 18:20 BMI result Body Mass Index 24.2 Const: Other: General: AO X 2, no acute distress GI: +BS, NT, no distention Skin: No rash, no ulcers Neuro:? motor grossly intact Psych: less agitated today Objective Data Active Medications Acetaminophen (Acetaminophen 325 Mg Tablet) 975 mg PO BID [facility] Last Admin: 03/08/23 08:31 Dose: 975 mg Documented By: CEZAR Acetaminophen (Acetaminophen 325 Mg Tablet) 650 mg PO Q6H PRN PRN Reason: Pain, Moderate(Pain Scale 4-6) Last Admin: 03/06/23 16:24 Dose: 650 mg Documented By: ROMANA Amlodipine Besylate (Amlodipine Besylate 5 Mg Tablet) 5 mg PO DAILY [facility]; Protocol Last Admin: 03/08/23 08:31 Dose: 5 mg Documented By: CEZAR Apixaban (Apixaban 2.5 Mg Tablet) 2.5 mg PO BID [facility] Last Admin: 03/08/23 08:31 Dose: 2.5 mg Documented By: CEZAR Bicalutamide (Bicalutamide 50 Mg Tablet) 50 mg PO TID [facility] Last Admin: 03/08/23 08:31 Dose: 50 mg Documented By: CEZAR Docusate Sodium (Docusate Sodium 100 Mg Capsule) 100 mg PO DAILY PRN PRN Reason: Constipation Last Admin: 01/05/23 08:05 Dose: 100 mg Documented By: MIKE Finasteride (Finasteride 5 Mg Tablet) 5 mg PO DAILY [facility] Last Admin: 08/15/23 08:31 Dose: 5 mg Documented By: CEZAR Gabapentin (Gabapentin 100 Mg Capsule) 100 mg PO BID [facility] Last Admin: 03/08/23 08:31 Dose: 100 mg Documented By: CEZAR Glucose (Glucose Gel 15 Gm Gel..Gram.) 15 gm PO Q15M PRN; Protocol PRN Reason: per Hypoglycemia Standing Ord. Dextrose (D10) 250 mls @ 750 mls/hr IV Q15M PRN; Protocol PRN Reason: per Hypoglycemia Standing Ord. Insulin Human Lispro (Insulin Lispro 100 Unit/Ml 3 Ml Vial) 0 unit SUBCUT QIDACHS [facility]; Protocol Last Admin: 03/08/23 08:30 Dose: Not Given Documented By: CEZAR Non-Admin Reason: No Insulin Coverage Metformin HCl (Metformin Hcl Er 500 Mg Tab.Er.24h) 2,000 mg PO DAILY [facility] Last Admin: 03/08/23 08:30 Dose: 2,000 mg Documented By: CEZAR Metoprolol Tartrate (Metoprolol Tartrate 25 Mg Tablet) 25 mg PO BID [facility]; Protocol Last Admin: 03/08/23 08:33 Dose: Not Given Documented By: CEZAR Non-Admin Reason: Patient Refused Olanzapine (Olanzapine 10 Mg Vial) 5 mg IM DAILY PRN PRN Reason: agitation Olanzapine (Olanzapine 2.5 Mg Tablet) 2.5 mg PO Q4H PRN PRN Reason: Delirium Last Admin: 03/07/23 13:19 Dose: 2.5 mg Documented By: CEZAR Olanzapine (Olanzapine 2.5 Mg Tablet) 2.5 mg PO DAILY [facility] Last Admin: 03/08/23 08:31 Dose: 2.5 mg Documented By: CEZAR Ondansetron HCl (Ondansetron Hcl 4 Mg/2 Ml Vial) 4 mg IVPUSH Q8H PRN PRN Reason: Nausea and Vomiting Ondansetron HCl (Ondansetron Hcl 4 Mg/2 Ml Vial) 4 mg IVPUSH ONCE PRN PRN Reason: Nausea and Vomiting Pharmacy Consult (Consult Rx Perform Med Rec) 1 each MISCELLANE ONCE PRN PRN Reason: Consult order Polyethylene Glycol (Polyethylene Glycol 3350 17 Gm Powd.Pack) 17 gm PO DAILY [facility] Last Admin: 03/08/23 08:31 Dose: 17 gm Documented By: CEZAR Pravastatin Sodium (Pravastatin Sodium 40 Mg Tablet) 40 mg PO BEDTIME [facility] Last Admin: 03/07/23 21:14 Dose: Not Given Documented By: ORALIA Non-Admin Reason: Patient Refused Sodium Chloride (0.9 % Sodium Chloride Flush 3 Ml Syringe) 3 ml IVFLUSH QSHIFT [facility] Last Admin: 03/08/23 08:30 Dose: Not Given Documented By: CEZAR Non-Admin Reason: No Access Tamsulosin HCl (Tamsulosin Hcl 0.4 Mg Capsule) 0.8 mg PO DAILY [facility] Last Admin: 03/08/23 08:30 Dose: 0.8 mg Documented By: CEZAR Labs 03/02/23 05:03 03/02/23 05:03 Labs: Laboratory Results - last 24 hr 03/07/23 03/07/23 03/08/23 16:11 20:43 07:19 POC Glucose 301 H 243 H 149 H 03/08/23 11:10 POC Glucose 236 H Assessment and Plan (1) Cognitive disorder: Status: Acute (2) Pain due to malignant neoplasm metastatic to bone: Status: Acute Plan 82-year-old male with a PMH significant for recently diagnosed?AFib on Eliquis, [id number]-invphcetu diabetes, and enlarged prostate who presented to the ED with?generalized weakness.? Patient recently presented to the emergency room 5 days prior on 12/26/2022 for evaluation of lower back pain.? Patient was found to have new onset AFib with RVR and a likely UTI.? CT scan of abdomen and pelvis found a marked heterogeneous enlargement the prostate gland with asymmetric nodular thickening of the left seminal vesicle concerning for primary malignancy.? 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 Congnitive problem with restlessness wax and wane reorientation Zyprexa PO daily and PRN Zyprexa IM PRN acute hypoxic respiratory failure 2/2 LLL atelactasis reolved ?Paroxysmal afib with rvr ?rate control, continue metoprolol and Eliquis Metabolic encephalopathy ( acute delirium in backdrop of chronic dementia) likely natural progression of dementia patient lacks capacity to make most medical decisions and unlikely to be able to live safely independently(psychiatry) awaiting placement(insurance pending) ANTONELLA on CKD II resolved after Oates placement failed voiding trial,oates replaced acute on chronic anemia Hb 10.7 with hematocrit 31.6 is stable DMI ?acceptable control on metformin and lispro correctional scale, few high blood pressure reading was paroxysmal afib ?Eliquis, lopressor DNR/DNI dvt prophylaxis - on eliquis ?Requires continued hospitalization: pending safe discharge to SNF (awaiting bed) Time Spent With Patient Time: Total time managing care of this patient today ____ minutes. Quality Stroke Does the patient have a stroke diagnosis?: No VTE Prior VTE?: No VTE Risk Level:: Medical - moderate - high VTE Device Contraindication: Treatment Not Indicated VTE Drug Contraindication: N/A - Med Ordered
[2023-03-08] MEDS: Insulin Lispro 100 UNIT/ML 3 ML VIAL SUBCUT ×2 (12:40→20:23)
[2023-03-08 16:00] VITALS: BP 119/58; PULSE 79; RESP 18; TEMP 36.7; O2SAT 96
[2023-03-08 16:21] LABS: Glucose, Whole Blood 122 mg/dL (60-115)
[2023-03-08 19:27] VITALS: BP 140/63; PULSE 85; RESP 16; TEMP 36.4; O2SAT 95
[2023-03-08 19:58] LABS: Glucose, Whole Blood 248 mg/dL (60-115)
[2023-03-08] MEDS: Metoprolol Tartrate 25 MG TABLET PO (20:22)
[2023-03-08] MEDS: Pravastatin Sodium 40 MG TABLET PO (20:22)
[2023-03-09 03:17] VITALS: BP 119/59; PULSE 85; RESP 18; TEMP 36.6; O2SAT 97
[2023-03-09 06:57] VITALS: BP 138/67; PULSE 87; RESP 16; TEMP 36.8; O2SAT 97
[2023-03-09 07:11] LABS: Glucose, Whole Blood 131 mg/dL (60-115)
[2023-03-09] MEDS: Acetaminophen 325 MG TABLET 975 MG PO ×2 (07:42→18:17)
[2023-03-09] MEDS: Bicalutamide 50 MG TABLET PO ×3 (07:43→20:53)
[2023-03-09] MEDS: Gabapentin 100 MG CAPSULE PO ×2 (07:43→20:53)
[2023-03-09] MEDS: Tamsulosin HCL 0.4 MG CAPSULE 0.8 MG PO (07:43)
[2023-03-09] MEDS: Finasteride 5 MG TABLET PO (07:43)
[2023-03-09] MEDS: metFORMIN HCl ER 500 MG TAB.ER.24H 2000 MG PO (07:43)
[2023-03-09] MEDS: amLODIPine Besylate 5 MG TABLET PO (07:43)
[2023-03-09] MEDS: Apixaban 2.5 MG TABLET PO ×2 (07:43→20:53)
[2023-03-09] MEDS: Metoprolol Tartrate 25 MG TABLET PO ×2 (07:43→20:53)
[2023-03-09] MEDS: polyethylene glycoL 3350 17 GM POWD.PACK PO (07:44)
[2023-03-09] MEDS: OLANZapine 2.5 MG TABLET PO (07:47)
[2023-03-09 07:53] LABS: Creatinine Clr Calc Pharmacy 44.5; Estimated Glomerular Filt Rate > 60
[2023-03-09 11:15] LABS: Glucose, Whole Blood 206 mg/dL (60-115)
[2023-03-09] MEDS: Insulin Lispro 100 UNIT/ML 3 ML VIAL SUBCUT ×2 (12:07→20:53)
--- NOTE | 2023-03-09 13:49 | HO.PM.IMPN ---
Subjective Subjective Date of Service: 03/09/23 Interval History: Seen and evaluated this morning sitting in his bed accepts to take his medications Pain under fair control Review of Systems Review of Systems: Yes all other systems are reviewed and are negative Physical Exam Vital Signs: Vital Signs: Last Vital Signs Temp 98.3 F 03/09/23 06:57 Pulse 87 03/09/23 06:57 Resp 16 03/09/23 06:57 BP 138/67 03/09/23 06:57 Pulse Ox 97 03/09/23 06:57 O2 Del Method Room Air 03/09/23 06:57 O2 Flow Rate 94 02/24/23 03:49 Oxygen Flow Rate 3 01/10/23 18:20 BMI result Body Mass Index 24.2 Const: Other: General: AO X 2, no acute distress GI: +BS, NT, no distention Skin: No rash, no ulcers Neuro:? motor grossly intact Psych: less agitated today Objective Data Active Medications Acetaminophen (Acetaminophen 325 Mg Tablet) 975 mg PO BID [facility] Last Admin: 03/09/23 07:42 Dose: 975 mg Documented By: ROMANA Acetaminophen (Acetaminophen 325 Mg Tablet) 650 mg PO Q6H PRN PRN Reason: Pain, Moderate(Pain Scale 4-6) Last Admin: 03/06/23 16:24 Dose: 650 mg Documented By: ROMANA Amlodipine Besylate (Amlodipine Besylate 5 Mg Tablet) 5 mg PO DAILY [facility]; Protocol Last Admin: 03/09/23 07:43 Dose: 5 mg Documented By: ROMANA Apixaban (Apixaban 2.5 Mg Tablet) 2.5 mg PO BID [facility] Last Admin: 03/09/23 07:43 Dose: 2.5 mg Documented By: ROMANA Bicalutamide (Bicalutamide 50 Mg Tablet) 50 mg PO TID [facility] Last Admin: 03/09/23 07:43 Dose: 50 mg Documented By: ROMANA Docusate Sodium (Docusate Sodium 100 Mg Capsule) 100 mg PO DAILY PRN PRN Reason: Constipation Last Admin: 01/05/23 08:05 Dose: 100 mg Documented By: MIKE Finasteride (Finasteride 5 Mg Tablet) 5 mg PO DAILY [facility] Last Admin: 03/09/23 07:43 Dose: 5 mg Documented By: ROMANA Gabapentin (Gabapentin 100 Mg Capsule) 100 mg PO BID [facility] Last Admin: 03/09/23 07:43 Dose: 100 mg Documented By: ROMANA Glucose (Glucose Gel 15 Gm Gel..Gram.) 15 gm PO Q15M PRN; Protocol PRN Reason: per Hypoglycemia Standing Ord. Dextrose (D10) 250 mls @ 750 mls/hr IV Q15M PRN; Protocol PRN Reason: per Hypoglycemia Standing Ord. Insulin Human Lispro (Insulin Lispro 100 Unit/Ml 3 Ml Vial) 0 unit SUBCUT QIDACHS [facility]; Protocol Last Admin: 03/09/23 12:07 Dose: 4 unit Documented By: ROMANA Metformin HCl (Metformin Hcl Er 500 Mg Tab.Er.24h) 2,000 mg PO DAILY [facility] Last Admin: 03/09/23 07:43 Dose: 2,000 mg Documented By: ROMANA Metoprolol Tartrate (Metoprolol Tartrate 25 Mg Tablet) 25 mg PO BID [facility]; Protocol Last Admin: 03/09/23 07:43 Dose: 25 mg Documented By: ROMANA Olanzapine (Olanzapine 2.5 Mg Tablet) 2.5 mg PO Q4H PRN PRN Reason: Delirium Last Admin: 03/07/23 13:19 Dose: 2.5 mg Documented By: CEZAR Olanzapine (Olanzapine 2.5 Mg Tablet) 2.5 mg PO DAILY [facility] Last Admin: 03/09/23 07:47 Dose: 2.5 mg Ondansetron HCl (Ondansetron Hcl 4 Mg/2 Ml Vial) 4 mg IVPUSH Q8H PRN PRN Reason: Nausea and Vomiting Ondansetron HCl (Ondansetron Hcl 4 Mg/2 Ml Vial) 4 mg IVPUSH ONCE PRN PRN Reason: Nausea and Vomiting Pharmacy Consult (Consult Rx Perform Med Rec) 1 each MISCELLANE ONCE PRN PRN Reason: Consult order Polyethylene Glycol (Polyethylene Glycol 3350 17 Gm Powd.Pack) 17 gm PO DAILY [facility] Last Admin: 03/09/23 07:44 Dose: 17 gm Documented By: ROMANA Pravastatin Sodium (Pravastatin Sodium 40 Mg Tablet) 40 mg PO BEDTIME [facility] Last Admin: 03/08/23 20:22 Dose: 40 mg Documented By: ORALIA Sodium Chloride (0.9 % Sodium Chloride Flush 3 Ml Syringe) 3 ml IVFLUSH QSHIFT [facility] Last Admin: 03/09/23 07:44 Dose: Not Given Documented By: ROMANA Non-Admin Reason: No Access Tamsulosin HCl (Tamsulosin Hcl 0.4 Mg Capsule) 0.8 mg PO DAILY [facility] Last Admin: 03/09/23 07:43 Dose: 0.8 mg Documented By: ROMANA Labs 03/02/23 05:03 03/09/23 07:22 Labs: Laboratory Results - last 24 hr 03/08/23 03/08/23 03/09/23 16:10 19:52 06:59 Estim Creat Clear Calc Estimated GFR POC Glucose 122 H 248 H 131 H 03/09/23 03/09/23 07:22 11:07 Estim Creat Clear Calc 44.5 Estimated GFR > 60 POC Glucose 206 H Assessment and Plan (1) Cognitive disorder: Status: Acute (2) Pain due to malignant neoplasm metastatic to bone: Status: Acute Plan 82-year-old male with a PMH significant for recently diagnosed?AFib on Eliquis, fxp-sevjzdl-ahylxupmb diabetes, and enlarged prostate who presented to the ED with?generalized weakness.? Patient recently presented to the emergency room 5 days prior on 12/26/2022 for evaluation of lower back pain.? Patient was found to have new onset AFib with RVR and a likely UTI.? CT scan of abdomen and pelvis found a marked heterogeneous enlargement the prostate gland with asymmetric nodular thickening of the left seminal vesicle concerning for primary malignancy.? 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 Congnitive problem with restlessness wax and wane reorientation Zyprexa PO daily and PRN Zyprexa IM PRN acute hypoxic respiratory failure 2/2 LLL atelactasis reolved ?Paroxysmal afib with rvr ?rate control, continue metoprolol and Eliquis Metabolic encephalopathy ( acute delirium in backdrop of chronic dementia) likely natural progression of dementia patient lacks capacity to make most medical decisions and unlikely to be able to live safely independently(psychiatry) awaiting placement(insurance pending) ANTONELLA on CKD II resolved after Oates placement failed voiding trial,oates replaced acute on chronic anemia Hb 10.7 with hematocrit 31.6 is stable DMI ?acceptable control on metformin and lispro correctional scale, few high blood pressure reading was paroxysmal afib ?Eliquis, lopressor DNR/DNI dvt prophylaxis - on eliquis ?Requires continued hospitalization: pending safe discharge to SNF (awaiting bed) Time Spent With Patient Time: Total time managing care of this patient today ____ minutes. Quality Stroke Does the patient have a stroke diagnosis?: No VTE Prior VTE?: No VTE Risk Level:: Medical - moderate - high VTE Device Contraindication: Treatment Not Indicated VTE Drug Contraindication: N/A - Med Ordered
[2023-03-09] MEDS: oxyCODONE HCl Immed Release 5 MG TABLET 2.5 MG PO ×2 (14:45→20:54)
[2023-03-09 15:01] VITALS: BP 106/57; PULSE 84; RESP 18; TEMP 36.7; O2SAT 97
[2023-03-09 16:18] LABS: Glucose, Whole Blood 125 mg/dL (60-115)
[2023-03-09 20:00] VITALS: BP 139/67; PULSE 90; RESP 18; TEMP 36.5; O2SAT 97
[2023-03-09 20:14] LABS: Glucose, Whole Blood 213 mg/dL (60-115)
[2023-03-09] MEDS: Pravastatin Sodium 40 MG TABLET PO (20:53)
[2023-03-10 03:30] VITALS: BP 125/73; PULSE 70; RESP 18; TEMP 36.3; O2SAT 97
[2023-03-10 07:11] VITALS: BP 138/67; PULSE 77; RESP 16; TEMP 36.2; O2SAT 95
[2023-03-10 07:31] LABS: Glucose, Whole Blood 158 mg/dL (60-115)
[2023-03-10] MEDS: Metoprolol Tartrate 25 MG TABLET PO ×2 (08:25→19:58)
[2023-03-10] MEDS: metFORMIN HCl ER 500 MG TAB.ER.24H 2000 MG PO (08:25)
[2023-03-10] MEDS: Apixaban 2.5 MG TABLET PO ×2 (08:25→19:58)
[2023-03-10] MEDS: Tamsulosin HCL 0.4 MG CAPSULE 0.8 MG PO (08:25)
[2023-03-10] MEDS: OLANZapine 2.5 MG TABLET PO (08:25)
[2023-03-10] MEDS: Gabapentin 100 MG CAPSULE PO ×2 (08:25→19:58)
[2023-03-10] MEDS: Insulin Lispro 100 UNIT/ML 3 ML VIAL SUBCUT ×4 (08:25→20:28)
[2023-03-10] MEDS: amLODIPine Besylate 5 MG TABLET PO (08:25)
[2023-03-10] MEDS: Bicalutamide 50 MG TABLET PO ×2 (08:26→19:58)
[2023-03-10] MEDS: Acetaminophen 325 MG TABLET 975 MG PO ×2 (08:26→19:56)
[2023-03-10] MEDS: Finasteride 5 MG TABLET PO (08:26)
[2023-03-10] MEDS: oxyCODONE HCl Immed Release 5 MG TABLET 2.5 MG PO (08:33)
[2023-03-10 11:17] LABS: Glucose, Whole Blood 158 mg/dL (60-115)
[2023-03-10 15:11] VITALS: BP 108/59; PULSE 67; RESP 18; TEMP 36.6; O2SAT 98
--- NOTE | 2023-03-10 15:30 | HO.PM.IMPN ---
Subjective Subjective Date of Service: 03/10/23 Interval History: Seen and evaluated this morning sitting in his bed accepts to take his medications Pain under fair control Physical Exam Vital Signs: Vital Signs: Last Vital Signs Temp 97.8 F 03/10/23 15:11 Pulse 67 03/10/23 15:11 Resp 18 03/10/23 15:11 BP 108/59 L 03/10/23 15:11 Pulse Ox 98 03/10/23 15:11 O2 Del Method Room Air 03/10/23 15:11 O2 Flow Rate 94 02/24/23 03:49 Oxygen Flow Rate 3 01/10/23 18:20 BMI result Body Mass Index 24.2 Const: Other: General: AO X 2, no acute distress GI: +BS, NT, no distention Skin: No rash, no ulcers Neuro:? motor grossly intact Psych: less agitated today Objective Data Active Medications Acetaminophen (Acetaminophen 325 Mg Tablet) 975 mg PO BID [facility] Last Admin: 03/10/23 08:26 Dose: 975 mg Documented By: ROMANA Acetaminophen (Acetaminophen 325 Mg Tablet) 650 mg PO Q6H PRN PRN Reason: Pain, Moderate(Pain Scale 4-6) Last Admin: 03/06/23 16:24 Dose: 650 mg Documented By: ROMANA Amlodipine Besylate (Amlodipine Besylate 5 Mg Tablet) 5 mg PO DAILY [facility]; Protocol Last Admin: 03/10/23 08:25 Dose: 5 mg Documented By: ROMANA Apixaban (Apixaban 2.5 Mg Tablet) 2.5 mg PO BID [facility] Last Admin: 03/10/23 08:25 Dose: 2.5 mg Documented By: ROMANA Bicalutamide (Bicalutamide 50 Mg Tablet) 50 mg PO TID [facility] Last Admin: 03/10/23 14:47 Dose: Not Given Documented By: ROMANA Non-Admin Reason: Patient Refused Docusate Sodium (Docusate Sodium 100 Mg Capsule) 100 mg PO DAILY PRN PRN Reason: Constipation Last Admin: 01/05/23 08:05 Dose: 100 mg Documented By: MIKE Finasteride (Finasteride 5 Mg Tablet) 5 mg PO DAILY [facility] Last Admin: 03/10/23 08:26 Dose: 5 mg Documented By: ROMANA Gabapentin (Gabapentin 100 Mg Capsule) 100 mg PO BID [facility] Last Admin: 03/10/23 08:25 Dose: 100 mg Documented By: ROMANA Glucose (Glucose Gel 15 Gm Gel..Gram.) 15 gm PO Q15M PRN; Protocol PRN Reason: per Hypoglycemia Standing Ord. Dextrose (D10) 250 mls @ 750 mls/hr IV Q15M PRN; Protocol PRN Reason: per Hypoglycemia Standing Ord. Insulin Human Lispro (Insulin Lispro 100 Unit/Ml 3 Ml Vial) 0 unit SUBCUT QIDACHS [facility]; Protocol Last Admin: 03/10/23 11:49 Dose: 2 unit Documented By: ROMANA Comments: Metformin HCl (Metformin Hcl Er 500 Mg Tab.Er.24h) 2,000 mg PO DAILY [facility] Last Admin: 03/10/23 08:25 Dose: 2,000 mg Documented By: ROMANA Metoprolol Tartrate (Metoprolol Tartrate 25 Mg Tablet) 25 mg PO BID [facility]; Protocol Last Admin: 03/10/23 08:25 Dose: 25 mg Documented By: ROMANA Olanzapine (Olanzapine 2.5 Mg Tablet) 2.5 mg PO Q4H PRN PRN Reason: Delirium Last Admin: 03/07/23 13:19 Dose: 2.5 mg Documented By: CEZAR Olanzapine (Olanzapine 2.5 Mg Tablet) 2.5 mg PO DAILY [facility] Last Admin: 03/10/23 08:25 Dose: 2.5 mg Documented By: ROMANA Ondansetron HCl (Ondansetron Hcl 4 Mg/2 Ml Vial) 4 mg IVPUSH Q8H PRN PRN Reason: Nausea and Vomiting Ondansetron HCl (Ondansetron Hcl 4 Mg/2 Ml Vial) 4 mg IVPUSH ONCE PRN PRN Reason: Nausea and Vomiting Oxycodone HCl (Oxycodone Hcl Immed Release 5 Mg Tablet) 2.5 mg PO Q6H PRN PRN Reason: Pain, Severe (Pain Scale 7-10) Last Admin: 03/10/23 08:33 Dose: 2.5 mg Documented By: ROMANA Pharmacy Consult (Consult Rx Perform Med Rec) 1 each MISCELLANE ONCE PRN PRN Reason: Consult order Polyethylene Glycol (Polyethylene Glycol 3350 17 Gm Powd.Pack) 17 gm PO DAILY [facility] Last Admin: 03/10/23 08:26 Dose: Not Given Documented By: ROMANA Non-Admin Reason: Patient Refused Pravastatin Sodium (Pravastatin Sodium 40 Mg Tablet) 40 mg PO BEDTIME [facility] Last Admin: 03/09/23 20:53 Dose: 40 mg Documented By: CLARA Sodium Chloride (0.9 % Sodium Chloride Flush 3 Ml Syringe) 3 ml IVFLUSH QSHIFT [facility] Last Admin: 03/10/23 15:08 Dose: Not Given Documented By: KATH Non-Admin Reason: No Access Tamsulosin HCl (Tamsulosin Hcl 0.4 Mg Capsule) 0.8 mg PO DAILY [facility] Last Admin: 03/10/23 08:25 Dose: 0.8 mg Documented By: ROMANA Labs 03/02/23 05:03 03/09/23 07:22 Labs: Laboratory Results - last 24 hr 03/09/23 03/09/23 03/10/23 16:07 20:06 07:15 POC Glucose 125 H 213 H 158 H 03/10/23 11:13 POC Glucose 158 H Assessment and Plan (1) Pain due to malignant neoplasm metastatic to bone: Status: Acute (2) Cognitive disorder: Status: Acute Plan 82-year-old male with a PMH significant for recently diagnosed?AFib on Eliquis, [id number] diabetes, and enlarged prostate who presented to the ED with?generalized weakness.? Patient recently presented to the emergency room 5 days prior on 12/26/2022 for evaluation of lower back pain.? Patient was found to have new onset AFib with RVR and a likely UTI.? CT scan of abdomen and pelvis found a marked heterogeneous enlargement the prostate gland with asymmetric nodular thickening of the left seminal vesicle concerning for primary malignancy.? 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 Congnitive problem with restlessness wax and wane reorientation Zyprexa PO daily and PRN Zyprexa IM PRN acute hypoxic respiratory failure 2/2 LLL atelactasis reolved ?Paroxysmal afib with rvr ?rate control, continue metoprolol and Eliquis Metabolic encephalopathy ( acute delirium in backdrop of chronic dementia) likely natural progression of dementia patient lacks capacity to make most medical decisions and unlikely to be able to live safely independently(psychiatry) awaiting placement(insurance pending) ANTONELLA on CKD II resolved after Oates placement failed voiding trial,oates replaced acute on chronic anemia Hb 10.7 with hematocrit 31.6 is stable DMI ?acceptable control on metformin and lispro correctional scale, few high blood pressure reading was paroxysmal afib ?Eliquis, lopressor DNR/DNI dvt prophylaxis - on eliquis ?Requires continued hospitalization: pending safe discharge to SNF (awaiting bed) Time Spent With Patient Time: Total time managing care of this patient today ____ minutes. Quality Stroke Does the patient have a stroke diagnosis?: No VTE Prior VTE?: No VTE Risk Level:: Medical - moderate - high VTE Device Contraindication: Treatment Not Indicated VTE Drug Contraindication: N/A - Med Ordered
[2023-03-10 16:03] LABS: Glucose, Whole Blood 176 mg/dL (60-115)
[2023-03-10 19:18] VITALS: BP 115/59; PULSE 90; RESP 18; TEMP 36.5; O2SAT 96
[2023-03-10] MEDS: Pravastatin Sodium 40 MG TABLET PO (19:58)
[2023-03-10 20:14] LABS: Glucose, Whole Blood 270 mg/dL (60-115)
[2023-03-11 02:57] VITALS: BP 119/57; PULSE 72; RESP 14; TEMP 36.6; O2SAT 95
[2023-03-11 07:31] VITALS: BP 138/70; PULSE 84; RESP 20; TEMP 36.7; O2SAT 96
[2023-03-11 07:33] VITALS: BP 138/70; PULSE 84; RESP 20; TEMP 36.6; O2SAT 95
[2023-03-11 07:55] LABS: Glucose, Whole Blood 205 mg/dL (60-115)
[2023-03-11] MEDS: Bicalutamide 50 MG TABLET PO ×3 (09:52→20:13)
[2023-03-11] MEDS: Gabapentin 100 MG CAPSULE PO ×2 (09:52→20:13)
[2023-03-11] MEDS: oxyCODONE HCl Immed Release 5 MG TABLET 2.5 MG PO (09:52)
[2023-03-11] MEDS: Metoprolol Tartrate 25 MG TABLET PO ×2 (09:52→20:11)
[2023-03-11] MEDS: Apixaban 2.5 MG TABLET PO ×2 (09:52→20:11)
[2023-03-11] MEDS: Finasteride 5 MG TABLET PO (09:52)
[2023-03-11] MEDS: OLANZapine 2.5 MG TABLET PO (09:53)
[2023-03-11] MEDS: metFORMIN HCl ER 500 MG TAB.ER.24H 2000 MG PO (09:53)
[2023-03-11] MEDS: amLODIPine Besylate 5 MG TABLET PO (09:54)
[2023-03-11] MEDS: Tamsulosin HCL 0.4 MG CAPSULE 0.8 MG PO (09:54)
[2023-03-11] MEDS: Acetaminophen 325 MG TABLET 975 MG PO ×2 (09:54→20:12)
[2023-03-11 11:30] LABS: Glucose, Whole Blood 214 mg/dL (60-115)
[2023-03-11] MEDS: Insulin Lispro 100 UNIT/ML 3 ML VIAL SUBCUT ×2 (12:07→20:40)
--- NOTE | 2023-03-11 14:26 | P.PNIM_ITS ---
Subjective Subjective Date of Service: 03/11/23 Interval History: Being followed for placement complaining of generalized pain mostly in back, shoulders, knees and legs, tolerating diet no nausea no vomiting no abdominal pain no other acute issues overnight. Review of Systems All other system reviewed and negative Physical Exam Vital Signs: Vital Signs: Last Vital Signs Temp 98 F 03/11/23 07:33 Pulse 84 03/11/23 07:33 Resp 20 03/11/23 07:33 BP 138/70 03/11/23 07:33 Pulse Ox 95 03/11/23 07:33 O2 Del Method Room Air 03/11/23 07:33 O2 Flow Rate 94 02/24/23 03:49 Oxygen Flow Rate 3 01/10/23 18:20 BMI result Body Mass Index 24.2 Const: Other: General:? awake, alert, no acute distress. neck supple GI:? abdomen soft, non tender, bowel sounds audible Skin: No rash, Oates in place clear urine Neuro:? motor grossly intact extremities normal examination Psych:? poor insight Objective Data Active Medications Acetaminophen (Acetaminophen 325 Mg Tablet) 975 mg PO BID [facility] Last Admin: 03/11/23 09:54 Dose: 975 mg Documented By: ROMANA Acetaminophen (Acetaminophen 325 Mg Tablet) 650 mg PO Q6H PRN PRN Reason: Pain, Moderate(Pain Scale 4-6) Last Admin: 03/06/23 16:24 Dose: 650 mg Documented By: ROMANA Amlodipine Besylate (Amlodipine Besylate 5 Mg Tablet) 5 mg PO DAILY [facility]; Protocol Last Admin: 03/11/23 09:54 Dose: 5 mg Documented By: ROMANA Apixaban (Apixaban 2.5 Mg Tablet) 2.5 mg PO BID [facility] Last Admin: 03/11/23 09:52 Dose: 2.5 mg Documented By: ROMANA Bicalutamide (Bicalutamide 50 Mg Tablet) 50 mg PO TID [facility] Last Admin: 03/11/23 09:52 Dose: 50 mg Documented By: ROMANA Docusate Sodium (Docusate Sodium 100 Mg Capsule) 100 mg PO DAILY PRN PRN Reason: Constipation Last Admin: 01/05/23 08:05 Dose: 100 mg Documented By: MIKE Finasteride (Finasteride 5 Mg Tablet) 5 mg PO DAILY [facility] Last Admin: 03/11/23 09:52 Dose: 5 mg Documented By: ROMANA Gabapentin (Gabapentin 100 Mg Capsule) 100 mg PO BID [facility] Last Admin: 03/11/23 09:52 Dose: 100 mg Documented By: ROMANA Glucose (Glucose Gel 15 Gm Gel..Gram.) 15 gm PO Q15M PRN; Protocol PRN Reason: per Hypoglycemia Standing Ord. Dextrose (D10) 250 mls @ 750 mls/hr IV Q15M PRN; Protocol PRN Reason: per Hypoglycemia Standing Ord. Insulin Human Lispro (Insulin Lispro 100 Unit/Ml 3 Ml Vial) 0 unit SUBCUT QIDACHS [facility]; Protocol Last Admin: 03/11/23 12:07 Dose: 4 unit Documented By: ROMANA Metformin HCl (Metformin Hcl Er 500 Mg Tab.Er.24h) 2,000 mg PO DAILY [facility] Last Admin: 03/11/23 09:53 Dose: 2,000 mg Documented By: ROMANA Metoprolol Tartrate (Metoprolol Tartrate 25 Mg Tablet) 25 mg PO BID [facility]; Protocol Last Admin: 03/11/23 09:52 Dose: 25 mg Documented By: ROMANA Olanzapine (Olanzapine 2.5 Mg Tablet) 2.5 mg PO Q4H PRN PRN Reason: Delirium Last Admin: 03/07/23 13:19 Dose: 2.5 mg Documented By: CEZAR Olanzapine (Olanzapine 2.5 Mg Tablet) 2.5 mg PO DAILY [facility] Last Admin: 03/11/23 09:53 Dose: 2.5 mg Documented By: ROMANA Ondansetron HCl (Ondansetron Hcl 4 Mg/2 Ml Vial) 4 mg IVPUSH Q8H PRN PRN Reason: Nausea and Vomiting Ondansetron HCl (Ondansetron Hcl 4 Mg/2 Ml Vial) 4 mg IVPUSH ONCE PRN PRN Reason: Nausea and Vomiting Oxycodone HCl (Oxycodone Hcl Immed Release 5 Mg Tablet) 2.5 mg PO Q6H PRN PRN Reason: Pain, Severe (Pain Scale 7-10) Last Admin: 03/11/23 09:52 Dose: 2.5 mg Documented By: ROMANA Pharmacy Consult (Consult Rx Perform Med Rec) 1 each MISCELLANE ONCE PRN PRN Reason: Consult order Polyethylene Glycol (Polyethylene Glycol 3350 17 Gm Powd.Pack) 17 gm PO DAILY [facility] Last Admin: 03/11/23 09:54 Dose: Not Given Documented By: ROMANA Non-Admin Reason: Patient Refused Pravastatin Sodium (Pravastatin Sodium 40 Mg Tablet) 40 mg PO BEDTIME [facility] Last Admin: 03/10/23 19:58 Dose: 40 mg Documented By: KATH Sodium Chloride (0.9 % Sodium Chloride Flush 3 Ml Syringe) 3 ml IVFLUSH QSHIFT [facility] Last Admin: 03/11/23 09:50 Dose: Not Given Documented By: ROMANA Non-Admin Reason: No Access Tamsulosin HCl (Tamsulosin Hcl 0.4 Mg Capsule) 0.8 mg PO DAILY [facility] Last Admin: 03/11/23 09:54 Dose: 0.8 mg Documented By: ROMANA Labs 03/02/23 05:03 03/09/23 07:22 Labs: Laboratory Results - last 24 hr 03/10/23 03/10/23 03/11/23 15:59 20:09 07:35 POC Glucose 176 H 270 H 205 H 03/11/23 11:26 POC Glucose 214 H Assessment and Plan (1) Diabetes mellitus: Status: Acute (2) Prostate cancer: Status: Acute Plan 82-year-old male with a PMH significant for recently diagnosed?AFib on Eliquis, [id number]-ssrtvjyrp diabetes, and enlarged prostate who presented to the ED with?generalized weakness.? Patient recently presented to the emergency room 5 days prior on 12/26/2022 for evaluation of lower back pain.? Patient was found to have new onset AFib with RVR and a likely UTI.? CT scan of abdomen and pelvis found a marked heterogeneous enlargement the prostate gland with asymmetric nodular thickening of the left seminal vesicle concerning for primary malign andressa.? 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 scheduled. Congnitive problem with restlessness wax and wane reorientation Zyprexa PO daily and PRN Zyprexa IM PRN acute hypoxic respiratory failure 2/2 LLL atelactasis reolved ?Paroxysmal afib with rvr ?rate control, continue metoprolol and Eliquis Metabolic encephalopathy ( acute delirium in backdrop of chronic dementia) likely natural progression of dementia patient lacks capacity to make most medical decisions and unlikely to be able to live safely independently(psychiatry) awaiting placement(insurance pending) ANTONELLA on CKD II resolved after Oates placement failed voiding trial,oates replaced acute on chronic anemia Hb? 10.7 with hematocrit 31.6? is stable DMI ?acceptable control on metformin and lispro correctional scale, few high blood pressure reading was paroxysmal afib ?Eliquis, lopressor DNR/DNI dvt prophylaxis - on eliquis ?Requires continued hospitalization: pending safe discharge to SNF (awaiting bed) Time Spent With Patient Time: Total time managing care of this patient today ____ minutes. Quality Stroke Does the patient have a stroke diagnosis?: No VTE Prior VTE?: No VTE Risk Level:: Medical - moderate - high VTE Device Contraindication: Treatment Not Indicated VTE Drug Contraindication: N/A - Med Ordered
[2023-03-11] MEDS: Acetaminophen 325 MG TABLET 650 MG PO (14:53)
[2023-03-11 15:49] VITALS: BP 123/59; PULSE 76; RESP 20; TEMP 36.3; O2SAT 98
[2023-03-11 16:21] LABS: Glucose, Whole Blood 97 mg/dL (60-115)
[2023-03-11 19:21] VITALS: BP 126/67; PULSE 70; RESP 18; TEMP 36.3; O2SAT 96
[2023-03-11] MEDS: Pravastatin Sodium 40 MG TABLET PO (20:13)
[2023-03-11 20:27] LABS: Glucose, Whole Blood 199 mg/dL (60-115)
[2023-03-12 02:30] VITALS: BP 122/64; PULSE 80; RESP 18; TEMP 36.3; O2SAT 97
[2023-03-12 07:34] VITALS: BP 141/69; PULSE 84; RESP 20; TEMP 36.4; O2SAT 96
[2023-03-12 07:39] LABS: Glucose, Whole Blood 173 mg/dL (60-115)
[2023-03-12] MEDS: Insulin Lispro 100 UNIT/ML 3 ML VIAL SUBCUT ×3 (08:23→20:40)
[2023-03-12] MEDS: Apixaban 2.5 MG TABLET PO ×2 (08:24→20:37)
[2023-03-12] MEDS: Tamsulosin HCL 0.4 MG CAPSULE 0.8 MG PO (08:24)
[2023-03-12] MEDS: Gabapentin 100 MG CAPSULE PO ×2 (08:24→20:36)
[2023-03-12] MEDS: amLODIPine Besylate 5 MG TABLET PO (08:24)
[2023-03-12] MEDS: Acetaminophen 325 MG TABLET 975 MG PO ×2 (08:25→20:38)
[2023-03-12] MEDS: metFORMIN HCl ER 500 MG TAB.ER.24H 2000 MG PO (08:25)
[2023-03-12] MEDS: Metoprolol Tartrate 25 MG TABLET PO ×2 (08:25→20:36)
[2023-03-12] MEDS: Bicalutamide 50 MG TABLET PO ×3 (08:27→20:39)
[2023-03-12] MEDS: Finasteride 5 MG TABLET PO (08:27)
[2023-03-12] MEDS: OLANZapine 2.5 MG TABLET PO (08:27)
[2023-03-12 11:34] LABS: Glucose, Whole Blood 183 mg/dL (60-115)
[2023-03-12] MEDS: oxyCODONE HCl Immed Release 5 MG TABLET 2.5 MG PO ×2 (12:26→20:37)
--- NOTE | 2023-03-12 13:33 | HO.PM.IMPN ---
Subjective Subjective Date of Service: 03/12/23 Interval History: Being followed for placement, continue to complain of generalized pain, Oates functioning fine no other acute issues overnight tolerating diet no nausea no vomiting no abdominal pain or diarrhea. Review of Systems All other system reviewed and negative. Physical Exam Vital Signs: Vital Signs: Last Vital Signs Temp 97.6 F 03/12/23 07:34 Pulse 84 03/12/23 07:34 Resp 20 03/12/23 07:34 BP 141/69 H 03/12/23 07:34 Pulse Ox 96 03/12/23 07:34 O2 Del Method Room Air 03/12/23 07:34 O2 Flow Rate 94 02/24/23 03:49 Oxygen Flow Rate 3 01/10/23 18:20 BMI result Body Mass Index 24.2 Const: Other: General:? awake, alert, no acute distress. neck supple GI:? abdomen soft, non tender, bowel sounds audible Skin: No rash, Oates in place clear urine Neuro:? motor grossly intact extremities normal examination Psych:? poor insight Objective Data Active Medications Acetaminophen (Acetaminophen 325 Mg Tablet) 975 mg PO BID [facility] Last Admin: 03/12/23 08:25 Dose: 975 mg Documented By: KAYLYN Acetaminophen (Acetaminophen 325 Mg Tablet) 650 mg PO Q6H PRN PRN Reason: Pain, Moderate(Pain Scale 4-6) Last Admin: 03/11/23 14:53 Dose: 650 mg Documented By: ROMANA Amlodipine Besylate (Amlodipine Besylate 5 Mg Tablet) 5 mg PO DAILY [facility]; Protocol Last Admin: 03/12/23 08:24 Dose: 5 mg Documented By: KAYLYN Apixaban (Apixaban 2.5 Mg Tablet) 2.5 mg PO BID [facility] Last Admin: 03/12/23 08:24 Dose: 2.5 mg Documented By: KAYLYN Bicalutamide (Bicalutamide 50 Mg Tablet) 50 mg PO TID [facility] Last Admin: 03/12/23 08:27 Dose: 50 mg Documented By: KAYLYN Docusate Sodium (Docusate Sodium 100 Mg Capsule) 100 mg PO DAILY PRN PRN Reason: Constipation Last Admin: 01/05/23 08:05 Dose: 100 mg Documented By: MIKE Finasteride (Finasteride 5 Mg Tablet) 5 mg PO DAILY [facility] Last Admin: 03/12/23 08:27 Dose: 5 mg Documented By: KAYLYN Gabapentin (Gabapentin 100 Mg Capsule) 100 mg PO BID [facility] Last Admin: 03/12/23 08:24 Dose: 100 mg Documented By: KAYLYN Glucose (Glucose Gel 15 Gm Gel..Gram.) 15 gm PO Q15M PRN; Protocol PRN Reason: per Hypoglycemia Standing Ord. Dextrose (D10) 250 mls @ 750 mls/hr IV Q15M PRN; Protocol PRN Reason: per Hypoglycemia Standing Ord. Insulin Human Lispro (Insulin Lispro 100 Unit/Ml 3 Ml Vial) 0 unit SUBCUT QIDACHS [facility]; Protocol Last Admin: 03/12/23 12:19 Dose: 2 unit Documented By: KAYLYN Metformin HCl (Metformin Hcl Er 500 Mg Tab.Er.24h) 2,000 mg PO DAILY [facility] Last Admin: 03/12/23 08:25 Dose: 2,000 mg Documented By: KAYLYN Metoprolol Tartrate (Metoprolol Tartrate 25 Mg Tablet) 25 mg PO BID [facility]; Protocol Last Admin: 03/12/23 08:25 Dose: 25 mg Documented By: KAYLYN Olanzapine (Olanzapine 2.5 Mg Tablet) 2.5 mg PO Q4H PRN PRN Reason: Delirium Last Admin: 03/07/23 13:19 Dose: 2.5 mg Documented By: CEZAR Olanzapine (Olanzapine 2.5 Mg Tablet) 2.5 mg PO DAILY [facility] Last Admin: 03/12/23 08:27 Dose: 2.5 mg Documented By: KAYLYN Ondansetron HCl (Ondansetron Hcl 4 Mg/2 Ml Vial) 4 mg IVPUSH Q8H PRN PRN Reason: Nausea and Vomiting Ondansetron HCl (Ondansetron Hcl 4 Mg/2 Ml Vial) 4 mg IVPUSH ONCE PRN PRN Reason: Nausea and Vomiting Oxycodone HCl (Oxycodone Hcl Immed Release 5 Mg Tablet) 2.5 mg PO Q6H PRN PRN Reason: Pain, Severe (Pain Scale 7-10) Last Admin: 03/12/23 12:26 Dose: 2.5 mg Documented By: KAYLYN Pharmacy Consult (Consult Rx Perform Med Rec) 1 each MISCELLANE ONCE PRN PRN Reason: Consult order Polyethylene Glycol (Polyethylene Glycol 3350 17 Gm Powd.Pack) 17 gm PO DAILY [facility] Last Admin: 03/12/23 08:33 Dose: Not Given Documented By: KAYLYN Non-Admin Reason: Patient Refused Pravastatin Sodium (Pravastatin Sodium 40 Mg Tablet) 40 mg PO BEDTIME [facility] Last Admin: 03/11/23 20:13 Dose: 40 mg Documented By: KATH Sodium Chloride (0.9 % Sodium Chloride Flush 3 Ml Syringe) 3 ml IVFLUSH QSHIFT [facility] Last Admin: 03/12/23 08:35 Dose: Not Given Documented By: KAYLYN Non-Admin Reason: No Access Tamsulosin HCl (Tamsulosin Hcl 0.4 Mg Capsule) 0.8 mg PO DAILY [facility] Last Admin: 03/12/23 08:24 Dose: 0.8 mg Documented By: KAYLYN Labs 03/02/23 05:03 03/09/23 07:22 Labs: Laboratory Results - last 24 hr 03/11/23 03/11/23 03/12/23 16:17 20:19 07:35 POC Glucose 97 199 H 173 H 03/12/23 11:27 POC Glucose 183 H Assessment and Plan (1) Diabetes mellitus: Status: Acute (2) Prostate cancer: Status: Acute Plan 82-year-old male with a PMH significant for recently diagnosed?AFib on Eliquis, uqo-jikoiqc-ttkoswvml diabetes, and enlarged prostate who presented to the ED with?generalized weakness.? Patient recently presented to the emergency room 5 days prior on 12/26/2022 for evaluation of lower back pain.? Patient was found to have new onset AFib with RVR and a likely UTI.? CT scan of abdomen and pelvis found a marked heterogeneous enlargement the prostate gland with asymmetric nodular thickening of the left seminal vesicle concerning for primary malignancy.? 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 scheduled, will add scheduled oxycodone b.i.d. Congnitive problem with restlessness wax and wane reorientation Zyprexa PO daily and PRN Zyprexa IM PRN acute hypoxic respiratory failure 2/2 LLL atelactasis reolved ?Paroxysmal afib with rvr ?rate control, continue metoprolol and Eliquis Metabolic encephalopathy ( acute delirium in backdrop of chronic dementia) likely natural progression of dementia patient lacks capacity to make most medical decisions and unlikely to be able to live safely independently(psychiatry) awaiting placement(insurance pending) ANTONELLA on CKD II resolved after Oates placement failed voiding trial,oates replaced acute on chronic anemia Hb? 10.7 with hematocrit 31.6? is stable DMI ?acceptable control on metformin and lispro correctional scale, few high blood pressure reading was paroxysmal afib ?Eliquis, lopressor DNR/DNI dvt prophylaxis - on eliquis ?Requires continued hospitalization: pending safe discharge to SNF (awaiting bed) Time Spent With Patient Time: Total time managing care of this patient today ____ minutes. Quality Stroke Does the patient have a stroke diagnosis?: No VTE Prior VTE?: No VTE Risk Level:: Medical - moderate - high VTE Device Contraindication: Treatment Not Indicated VTE Drug Contraindication: N/A - Med Ordered
[2023-03-12 15:57] VITALS: BP 108/56; PULSE 68; RESP 20; TEMP 36.4; O2SAT 99
[2023-03-12 16:16] LABS: Glucose, Whole Blood 170 mg/dL (60-115)
[2023-03-12 19:27] VITALS: BP 126/58; PULSE 78; RESP 20; TEMP 36.2; O2SAT 97
[2023-03-12 20:30] LABS: Glucose, Whole Blood 188 mg/dL (60-115)
[2023-03-12] MEDS: Pravastatin Sodium 40 MG TABLET PO (20:36)
[2023-03-13 00:23] VITALS: BP 122/70; PULSE 70; RESP 18; TEMP 36.2; O2SAT 95
[2023-03-13 07:17] VITALS: BP 130/62; PULSE 85; RESP 18; TEMP 36.4; O2SAT 94
[2023-03-13 07:18] LABS: Glucose, Whole Blood 150 mg/dL (60-115)
[2023-03-13] MEDS: Acetaminophen 325 MG TABLET 975 MG PO ×2 (08:07→19:54)
[2023-03-13] MEDS: Apixaban 2.5 MG TABLET PO ×2 (08:08→19:54)
[2023-03-13] MEDS: Metoprolol Tartrate 25 MG TABLET PO ×2 (08:08→19:54)
[2023-03-13] MEDS: oxyCODONE HCl Immed Release 5 MG TABLET 2.5 MG PO (08:08)
[2023-03-13] MEDS: OLANZapine 2.5 MG TABLET PO (08:08)
[2023-03-13] MEDS: Bicalutamide 50 MG TABLET PO ×3 (08:09→19:55)
[2023-03-13] MEDS: metFORMIN HCl ER 500 MG TAB.ER.24H 2000 MG PO (08:09)
[2023-03-13] MEDS: Gabapentin 100 MG CAPSULE PO ×2 (08:09→19:54)
[2023-03-13] MEDS: amLODIPine Besylate 5 MG TABLET PO (08:09)
[2023-03-13] MEDS: Finasteride 5 MG TABLET PO (08:09)
[2023-03-13] MEDS: Tamsulosin HCL 0.4 MG CAPSULE 0.8 MG PO (08:09)
[2023-03-13 11:18] LABS: Glucose, Whole Blood 230 mg/dL (60-115)
[2023-03-13] MEDS: Insulin Lispro 100 UNIT/ML 3 ML VIAL SUBCUT ×2 (11:53→19:55)
--- NOTE | 2023-03-13 12:24 | HO.PM.IMPN ---
Subjective Subjective Date of Service: 03/13/23 Interval History: being followed for placement continue to have back discomfort, only mild relief with oxycodone 2.5 mg no nausea, no vomiting, no lightheadedness or dizziness. Review of Systems all other system reviewed and negative Physical Exam Vital Signs: Vital Signs: Last Vital Signs Temp 97.5 F 03/13/23 07:17 Pulse 85 03/13/23 07:17 Resp 18 03/13/23 07:17 BP 130/62 03/13/23 07:17 Pulse Ox 94 03/13/23 07:17 O2 Del Method Room Air 03/13/23 07:17 O2 Flow Rate 94 02/24/23 03:49 Oxygen Flow Rate 3 01/10/23 18:20 BMI result Body Mass Index 24.2 Const: Other: General:? awake, a lert, no acute dis tress. neck supple GI:? abdomen soft , non tender, lynda l sounds audible S kin: No rash, Fole y in place clear u rine Neuro:? motor grossly intact ex tremities normal e xamination Psych:? poor insight Objective Data Active Medications Acetaminophen (Acetaminophen 325 Mg Tablet) 975 mg PO BID [facility] Last Admin: 03/13/23 08:07 Dose: 975 mg Documented By: MACKENZIE Acetaminophen (Acetaminophen 325 Mg Tablet) 650 mg PO Q6H PRN PRN Reason: Pain, Moderate(Pain Scale 4-6) Last Admin: 03/11/23 14:53 Dose: 650 mg Documented By: ROMANA Amlodipine Besylate (Amlodipine Besylate 5 Mg Tablet) 5 mg PO DAILY [facility]; Protocol Last Admin: 03/13/23 08:09 Dose: 5 mg Documented By: MACKENZIE Apixaban (Apixaban 2.5 Mg Tablet) 2.5 mg PO BID [facility] Last Admin: 03/13/23 08:08 Dose: 2.5 mg Documented By: MACKENZIE Bicalutamide (Bicalutamide 50 Mg Tablet) 50 mg PO TID [facility] Last Admin: 03/13/23 08:09 Dose: 50 mg Documented By: MACKENZIE Docusate Sodium (Docusate Sodium 100 Mg Capsule) 100 mg PO DAILY PRN PRN Reason: Constipation Last Admin: 01/05/23 08:05 Dose: 100 mg Documented By: MIKE Finasteride (Finasteride 5 Mg Tablet) 5 mg PO DAILY [facility] Last Admin: 03/13/23 08:09 Dose: 5 mg Documented By: MACKENZIE Gabapentin (Gabapentin 100 Mg Capsule) 100 mg PO BID [facility] Last Admin: 03/13/23 08:09 Dose: 100 mg Documented By: MACKENZIE Glucose (Glucose Gel 15 Gm Gel..Gram.) 15 gm PO Q15M PRN; Protocol PRN Reason: per Hypoglycemia Standing Ord. Dextrose (D10) 250 mls @ 750 mls/hr IV Q15M PRN; Protocol PRN Reason: per Hypoglycemia Standing Ord. Insulin Human Lispro (Insulin Lispro 100 Unit/Ml 3 Ml Vial) 0 unit SUBCUT QIDACHS [facility]; Protocol Last Admin: 03/13/23 11:53 Dose: 4 unit Documented By: MACKENZIE Metformin HCl (Metformin Hcl Er 500 Mg Tab.Er.24h) 2,000 mg PO DAILY [facility] Last Admin: 03/13/23 08:09 Dose: 2,000 mg Documented By: MACKENZIE Metoprolol Tartrate (Metoprolol Tartrate 25 Mg Tablet) 25 mg PO BID [facility]; Protocol Last Admin: 03/13/23 08:08 Dose: 25 mg Documented By: MACKENZIE Olanzapine (Olanzapine 2.5 Mg Tablet) 2.5 mg PO Q4H PRN PRN Reason: Delirium Last Admin: 03/07/23 13:19 Dose: 2.5 mg Documented By: CEZAR Olanzapine (Olanzapine 2.5 Mg Tablet) 2.5 mg PO DAILY [facility] Last Admin: 03/13/23 08:08 Dose: 2.5 mg Documented By: MACKENZIE Ondansetron HCl (Ondansetron Hcl 4 Mg/2 Ml Vial) 4 mg IVPUSH Q8H PRN PRN Reason: Nausea and Vomiting Ondansetron HCl (Ondansetron Hcl 4 Mg/2 Ml Vial) 4 mg IVPUSH ONCE PRN PRN Reason: Nausea and Vomiting Oxycodone HCl (Oxycodone Hcl Immed Release 5 Mg Tablet) 2.5 mg PO Q6H PRN PRN Reason: Pain, Severe (Pain Scale 7-10) Last Admin: 03/12/23 12:26 Dose: 2.5 mg Documented By: KAYLYN Oxycodone HCl (Oxycodone Hcl Immed Release 5 Mg Tablet) 2.5 mg PO BID [facility] Last Admin: 03/13/23 08:08 Dose: 2.5 mg Documented By: MACKENZIE Pharmacy Consult (Consult Rx Perform Med Rec) 1 each MISCELLANE ONCE PRN PRN Reason: Consult order Polyethylene Glycol (Polyethylene Glycol 3350 17 Gm Powd.Pack) 17 gm PO DAILY [facility] Last Admin: 03/13/23 08:09 Dose: Not Given Documented By: MACKENZIE Non-Admin Reason: Patient Refused Pravastatin Sodium (Pravastatin Sodium 40 Mg Tablet) 40 mg PO BEDTIME [facility] Last Admin: 03/12/23 20:36 Dose: 40 mg Documented By: PREETI Sodium Chloride (0.9 % Sodium Chloride Flush 3 Ml Syringe) 3 ml IVFLUSH QSHIFT [facility] Last Admin: 03/13/23 07:27 Dose: Not Given Documented By: MACKENZIE Non-Admin Reason: No Access Tamsulosin HCl (Tamsulosin Hcl 0.4 Mg Capsule) 0.8 mg PO DAILY [facility] Last Admin: 03/13/23 08:09 Dose: 0.8 mg Documented By: MACKENZIE Labs 03/02/23 05:03 03/09/23 07:22 Labs: Laboratory Results - last 24 hr 03/12/23 03/12/23 03/13/23 16:10 20:13 07:15 POC Glucose 170 H 188 H 150 H 03/13/23 11:14 POC Glucose 230 H Assessment and Plan (1) Diabetes mellitus: Status: Acute (2) Prostate cancer: Status: Acute Plan 82-year-old male with a PMH significant for recently diagnosed?AFib on Eliquis, [id number] diabetes, and enlarged prostate who presented to the ED with?generalized weakness.? Patient recently presented to the emergency room 5 days prior on 12/26/2022 for evaluation of lower back pain.? Patient was found to have new onset AFib with RVR and a likely UTI.? CT scan of abdomen and pelvis found a marked heterogeneous enlargement the prostate gland with asymmetric nodular thickening of the left seminal vesicle concerning for primary malignancy.? 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 scheduled, added oxycodone 5mg b.i.d.scheduled. Congnitive problem with restlessness wax and wane reorientation Zyprexa PO daily and PRN Zyprexa IM PRN acute hypoxic respiratory failure 2/2 LLL atelactasis reolved ?Paroxysmal afib with rvr ?rate control, continue metoprolol and Eliquis Metabolic encephalopathy ( acute delirium in backdrop of chronic dementia) likely natural progression of dementia patient lacks capacity to make most medical decisions and unlikely to be able to live safely independently(psychiatry) awaiting placement(insurance pending) ANTONELLA on CKD II resolved after Oates placement failed voiding trial,oates replaced acute on chronic anemia Hb? 10.7 with hematocrit 31.6? is stable DMI ?acceptable control on metformin and lispro correctional scale, few high blood pressure reading was paroxysmal afib ?Eliquis, lopressor DNR/DNI dvt prophylaxis - on eliquis ?Requires continued hospitalization: pending safe discharge to SNF (awaiting bed) Time Spent With Patient Time: Total time managing care of this patient today ____ minutes. Quality Stroke Does the patient have a stroke diagnosis?: No VTE Prior VTE?: No VTE Risk Level:: Medical - moderate - high VTE Device Contraindication: Treatment Not Indicated VTE Drug Contraindication: N/A - Med Ordered
[2023-03-13 15:49] VITALS: BP 109/59; PULSE 73; RESP 16; TEMP 36.2; O2SAT 96
[2023-03-13 19:20] VITALS: BP 140/76; PULSE 92; RESP 18; TEMP 36.1; O2SAT 98
[2023-03-13 19:25] LABS: Glucose, Whole Blood 185 mg/dL (60-115)
[2023-03-13] MEDS: Pravastatin Sodium 40 MG TABLET PO (19:55)
[2023-03-13] MEDS: oxyCODONE HCl Immed Release 5 MG TABLET PO (19:55)
[2023-03-14 07:01] VITALS: BP 136/66; PULSE 98; RESP 18; TEMP 36.1; O2SAT 98
[2023-03-14 07:15] LABS: Glucose, Whole Blood 164 mg/dL (60-115)
--- NOTE | 2023-03-14 09:30 | HO.PM.IMPN ---
Subjective Subjective Date of Service: 03/14/23 Interval History: complaining of back pain bilateral lower extremity discomfort, refusing meds , since feel his pain is not address, explained to patient that he has been placed on oxycodone for pain management, but at this time patient is not receptive, eating breakfast no nausea no vomiting no abdominal pain no other acute issues overnight. Review of Systems All other system reviewed and negative Physical Exam Vital Signs: Vital Signs: Last Vital Signs Temp 97 F 03/14/23 07:01 Pulse 98 03/14/23 07:01 Resp 18 03/14/23 07:01 BP 136/66 03/14/23 07:01 Pulse Ox 98 03/14/23 07:01 O2 Del Method Room Air 03/14/23 07:01 O2 Flow Rate 94 02/24/23 03:49 Oxygen Flow Rate 3 01/10/23 18:20 BMI result Body Mass Index 24.2 Const: Other: General:? awake, alert, no acute distress. neck supple GI:? abdomen soft, non tender, bowel sounds audible Skin: No rash, Oates in place clear urine Neuro:? motor grossly intact extremities normal examination Psych:? poor insight Objective Data Active Medications Acetaminophen (Acetaminophen 325 Mg Tablet) 975 mg PO BID [facility] Last Admin: 03/14/23 08:57 Dose: Not Given Documented By: CHASITY Non-Admin Reason: Patient Refused Acetaminophen (Acetaminophen 325 Mg Tablet) 650 mg PO Q6H PRN PRN Reason: Pain, Moderate(Pain Scale 4-6) Last Admin: 03/11/23 14:53 Dose: 650 mg Documented By: ROMANA Amlodipine Besylate (Amlodipine Besylate 5 Mg Tablet) 5 mg PO DAILY [facility]; Protocol Last Admin: 03/14/23 08:57 Dose: Not Given Documented By: CHASITY Non-Admin Reason: Patient Refused Apixaban (Apixaban 2.5 Mg Tablet) 2.5 mg PO BID [facility] Last Admin: 03/14/23 08:57 Dose: Not Given Documented By: CHASITY Non-Admin Reason: Patient Refused Bicalutamide (Bicalutamide 50 Mg Tablet) 50 mg PO TID [facility] Last Admin: 03/14/23 08:57 Dose: Not Given Documented By: CHASITY Non-Admin Reason: Patient Refused Docusate Sodium (Docusate Sodium 100 Mg Capsule) 100 mg PO DAILY PRN PRN Reason: Constipation Last Admin: 01/05/23 08:05 Dose: 100 mg Documented By: MIKE Finasteride (Finasteride 5 Mg Tablet) 5 mg PO DAILY [facility] Last Admin: 03/14/23 08:57 Dose: Not Given Documented By: CHASITY Non-Admin Reason: Patient Refused Gabapentin (Gabapentin 100 Mg Capsule) 100 mg PO BID [facility] Last Admin: 03/14/23 08:57 Dose: Not Given Documented By: CHASITY Non-Admin Reason: Patient Refused Glucose (Glucose Gel 15 Gm Gel..Gram.) 15 gm PO Q15M PRN; Protocol PRN Reason: per Hypoglycemia Standing Ord. Dextrose (D10) 250 mls @ 750 mls/hr IV Q15M PRN; Protocol PRN Reason: per Hypoglycemia Standing Ord. Insulin Human Lispro (Insulin Lispro 100 Unit/Ml 3 Ml Vial) 0 unit SUBCUT QIDACHS [facility]; Protocol Last Admin: 03/14/23 08:48 Dose: Not Given Documented By: CHASITY Non-Admin Reason: Patient Refused Metformin HCl (Metformin Hcl Er 500 Mg Tab.Er.24h) 2,000 mg PO DAILY [facility] Last Admin: 03/14/23 08:58 Dose: Not Given Documented By: CHASITY Non-Admin Reason: Patient Refused Metoprolol Tartrate (Metoprolol Tartrate 25 Mg Tablet) 25 mg PO BID [facility]; Protocol Last Admin: 03/14/23 08:58 Dose: Not Given Documented By: CHASITY Non-Admin Reason: Patient Refused Olanzapine (Olanzapine 2.5 Mg Tablet) 2.5 mg PO Q4H PRN PRN Reason: Delirium Last Admin: 03/07/23 13:19 Dose: 2.5 mg Documented By: CEZAR Olanzapine (Olanzapine 2.5 Mg Tablet) 2.5 mg PO DAILY [facility] Last Admin: 03/14/23 08:58 Dose: Not Given Documented By: CHASITY Non-Admin Reason: Patient Refused Ondansetron HCl (Ondansetron Hcl 4 Mg/2 Ml Vial) 4 mg IVPUSH Q8H PRN PRN Reason: Nausea and Vomiting Ondansetron HCl (Ondansetron Hcl 4 Mg/2 Ml Vial) 4 mg IVPUSH ONCE PRN PRN Reason: Nausea and Vomiting Oxycodone HCl (Oxycodone Hcl Immed Release 5 Mg Tablet) 5 mg PO BID [facility] Last Admin: 03/14/23 08:58 Dose: Not Given Documented By: CHASITY Non-Admin Reason: Patient Refused Oxycodone HCl (Oxycodone Hcl Immed Release 5 Mg Tablet) 2.5 mg PO Q8H PRN PRN Reason: Pain, Severe (Pain Scale 7-10) Pharmacy Consult (Consult Rx Perform Med Rec) 1 each MISCELLANE ONCE PRN PRN Reason: Consult order Polyethylene Glycol (Polyethylene Glycol 3350 17 Gm Powd.Pack) 17 gm PO DAILY [facility] Last Admin: 03/14/23 08:58 Dose: Not Given Documented By: CHASITY Non-Admin Reason: Patient Refused Pravastatin Sodium (Pravastatin Sodium 40 Mg Tablet) 40 mg PO BEDTIME [facility] Last Admin: 03/13/23 19:55 Dose: 40 mg Documented By: LEE ANN Sodium Chloride (0.9 % Sodium Chloride Flush 3 Ml Syringe) 3 ml IVFLUSH QSHIFT [facility] Last Admin: 03/14/23 08:48 Dose: Not Given Documented By: CHASITY Non-Admin Reason: No Access Tamsulosin HCl (Tamsulosin Hcl 0.4 Mg Capsule) 0.8 mg PO DAILY [facility] Last Admin: 03/14/23 08:58 Dose: Not Given Documented By: CHASITY Non-Admin Reason: Patient Refused Labs 03/02/23 05:03 03/09/23 07:22 Labs: Laboratory Results - last 24 hr 03/13/23 03/13/23 03/13/23 11:14 16:25 19:18 POC Glucose 230 H Cancelled 185 H 03/14/23 07:01 POC Glucose 164 H Assessment and Plan (1) Diabetes mellitus: Status: Acute (2) Prostate cancer: Status: Acute Plan 82-year-old male with a PMH significant for recently diagnosed?AFib on Eliquis, roq-[id number] diabetes, and enlarged prostate who presented to the ED with?generalized weakness.? Patient recently presented to the emergency room 5 days prior on 12/26/2022 for evaluation of lower back pain.? Patient was found to have new onset AFib with RVR and a likely UTI.? CT scan of abdomen and pelvis found a marked heterogeneous enlargement the prostate gland with asymmetric nodular thickening of the left seminal vesicle concerning for primary malignancy.? 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 scheduled, added oxycodone 5mg b.i.d.scheduled. irritable this morning due to pain, explained patient cause of pain and recommend to take pain medication as prescribed. Congnitive problem with restlessness wax and wane reorientation Zyprexa PO daily and PRN Zyprexa IM PRN acute hypoxic respiratory failure 2/2 LLL atelactasis reolved ?Paroxysmal afib with rvr ?rate control, continue metoprolol and Eliquis Metabolic encephalopathy ( acute delirium in backdrop of chronic dementia) likely natural progression of dementia patient lacks capacity to make most medical decisions and unlikely to be able to live safely independently(psychiatry) awaiting placement(insurance pending) ANTONELLA on CKD II resolved after Oates placement failed voiding trial,oates replaced acute on chronic anemia Hb? 10.7 with hematocrit 31.6? is stable DMI ?acceptable control on metformin and lispro correctional scale, few high blood pressure reading was paroxysmal afib ?Eliquis, lopressor DNR/DNI dvt prophylaxis - on eliquis ?Requires continued hospitalization: pending safe discharge to SNF (awaiting bed) Time Spent With Patient Time: Total time managing care of this patient today ____ minutes. Quality Stroke Does the patient have a stroke diagnosis?: No VTE Prior VTE?: No VTE Risk Level:: Medical - moderate - high VTE Device Contraindication: Treatment Not Indicated VTE Drug Contraindication: N/A - Med Ordered
--- NOTE | 2023-03-14 09:44 | MHC.CLN ---
F/U STAGE II TO [facility]. DIET=DIABETIC 2000 [facility]. NOT ACCEPTING ENSURE SUPPLEMENT AND DISCONTINUED. CONTINUES WITH USUALLY GOOD INTAKE AT MEALS, WITH MOST 100%. LOWER INTAKE SOME MEALS. DX PROSTATE CANCER WITH METS TO BONE. FOLLOW FOR INTAKE AND WOUND HEALING. RD TO FOLLOW WEEKLY.
--- NOTE | 2023-03-14 10:38 | P.DS_ITS ---
DS: Providers Provider Date of Service: 03/14/23 Date of admission: 12/31/22 16:56 Primary care physician: PABLO Manuel Consults: 01/03/23 08:29 Consult to Urology Routine Consulting Provider: Nate Mendez Reason for consultation: prostate ca, antonella with mild b/l hydro on renal us 01/03/23 11:10 Consult to Psychiatry Routine Consulting Provider: Psych Covering Reason for consultation: ?acute psychosis, ?capacity for HCP, discharge, self care? 01/06/23 07:54 Consult to Nephrology Routine Consulting Provider: Shawn Quintanilla Reason for consultation: eval and rec. 01/08/23 09:52 Consult to Hematology / Oncology Routine Consulting Provider: Alondra Rendon Reason for consultation: Metastatic prostate CA, Encephalopathy for eval and rec. 01/18/23 09:03 Consult to Psychiatry Routine Consulting Provider: Psych Covering Reason for consultation: Delirium Has provider been notified: No DS: Diagnosis Discharge Diagnosis (1) Diabetes mellitus: Status: Acute (2) Prostate cancer: Status: Acute DS: Summary Hospital Course Hospital Course: Date of Service: 12/31/22 Attending physician on admission: [facility] [employer] Chief Complaint: Genearlized weakness Pt is an 82-year-old male with a PMH significant for recently diagnosed?AFib on Eliquis, pfc-fjvcbox-hvttdnlag diabetes, and enlarged prostate who presents to the ED with?generalized weakness.? Patient recently presented to the emergency room 5 days prior on 12/26/2022 for evaluation of lower back pain.? Patient was found to have new onset AFib with RVR and a likely UTI.? CT scan of abdomen and pelvis found a marked heterogeneous enlargement the prostate gland with asymmetric nodular thickening of the left seminal vesicle concerning for primary malignancy.? Patient was discharged home on cefuroxime 500 mg p.o. b.i.d. x7 days and advised to follow-up with Urology outpatient about enlarged prostate.? Patient states that he presented to the ED today because he was experiencing back pain/spasm while lying on the couch earlier in the day and lowered himself to the floor do stretches back out.? Patient was unable to stand or get back up on the couch so he called his brother who came to the house and told the patient he had too many things of his own to do to continue to help him out.? The patient's brother then called the ambulance to take him to the hospital. Patient seems overwhelmed at his new diagnoses in uncertain what to moving forward as he apparently lacks home support.? Patient denies SI or HI, but seems uncertain as to whether or not he should even seek urology consultation for his possible prostate cancer.? Patient notes he has felt ?lousy? and weak the past few days though he is unable to further clarify what this means.? Notes he has been incontinent of urine lately, which is new.? Complains of back pain and back spasms for the past 3-4 weeks. Has noticed increased leg swelling the past 2 months. Denies fever, chills, nausea, vomiting, abdominal pain, diarrhea.? No chest pain/pressure, palpitations.? Denies shortness of breath.? Patient is a current smoker of 1 pack a day but declines NRT. In the ED patient was afebrile but tachycardic up to 112, tachypneic up to 22, and hypertensive up to 159/73. Labs were significant for leukocytosis of 12.0, H&H of 12.7/37.2, elevated BUN of 40, creatinine 1.44, PSA 273.74.? Electrolytes WNL.? Lactic acid WNL.? Hepatic function baseline.? Creatinine kinase 137. CXR showed no evidence of cardiopulmonary process. CT?of head found no acute intracranial pathology, but found chronic global volume loss and microangiopathy, and chronic lacunar infarct in the right side of the cerebellum. EKG demonstrated atrial fibrillation without evidence of ST elevations or depressions. Pt was treated with IVF and diltiazem. Pt will be admitted to the hospital for treatment of generalized weakness in setting of ANTONELLA. hospital course 82-year-old male with a PMH significant for recently diagnosed?AFib on Eliquis, nto-moqvuem-pzrvpelzp diabetes, and enlarged prostate who presented to the ED with?generalized weakness.? Patient recently presented to the emergency room 5 days prior on 12/26/2022 for evaluation of lower back pain.? Patient was found to have new onset AFib with RVR and a likely UTI.? CT scan of abdomen and pelvis found a marked heterogeneous enlargement the prostate gland with asymmetric nodular thickening of the left seminal vesicle concerning for primary malignancy.? Patient was admitted to the hospital?for treatment and further evaluation of generalized weakness in the setting of ANTONELLA and UTI admitted with acute kidney injury, renal ultrasound showed mild bilateral hydronephrosis patient evaluated by Dr. 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 ? unspecified dementia with behavioral disturbance, patient evaluated by psychiatry, and placed on low does Zyprexa to control agitation, paranoia and sun [place], he lacks decision-making capacity for any major medical decision, continue current dose of Zyprexa acute hypoxic respiratory failure 2/2 LLL atelactasis reolved Paroxysmal afib with rvr ?rate control, continue metoprolol and Eliquis Metabolic encephalopathy resolved was most likely due to ANTONELLA and progression of dementia ANTONELLA on CKD II resolved after Mclaughlin placement, failed voiding trial, continue indwelling Mclaughlin catheter. acute on chronic anemia Hb? 10.7 with hematocrit 31.6? is stable DMI ?acceptable control on metformin and lispro correctional scale, Continue diabetic diet. Time Spent with Patient Time attestation: Total time managing care of this patient today ____ minutes. Discharge coordination time: Greater than 30 minutes Quality: Safe Use of Opioids Does Pt have an Active Cancer Diagnosis on the Problem List?: No Quality: Stroke Does the patient have a stroke diagnosis?: No Physical Exam Vital Signs: Vital Signs: Last Vital Signs Temp 97 F 03/14/23 07:01 Pulse 98 03/14/23 07:01 Resp 18 03/14/23 07:01 BP 136/66 03/14/23 07:01 Pulse Ox 98 03/14/23 07:01 O2 Del Method Room Air 03/14/23 07:01 O2 Flow Rate 94 02/24/23 03:49 Oxygen Flow Rate 3 01/10/23 18:20 BMI result Body Mass Index 24.2 Const: Other: General:? awake, alert, no acute distress. neck supple lungs clear to auscultation CVS irregular GI:? abdomen soft, non tender, bowel sounds audible Skin: No rash, Mclaughlin in place clear urine Neuro:? motor grossly intact extremities normal examination , no edema, no redness Psych:? poor insight DS: Data Data Completed and Pending Completed studies during hospitalization [Text1]: Pending at discharge 01/10/23 18:16 Surgical [PTH] Routine Labs on day of discharge: Laboratory Results - last 24 hr 03/13/23 03/13/23 03/13/23 11:14 16:25 19:18 POC Glucose 230 H Cancelled 185 H 03/14/23 07:01 POC Glucose 164 H Discharge Plan Discharge Anticipated Discharge Date/Time: 03/14/23 10:29 Patient Disposition: Xfer SNF Discharge Diagnosis: acute kidney injury metastatic prostate cancer diabetes mellitus paroxysmal AFib with RVR acute on chronic anemia Referrals: [facility] [Other] - 1 Week Johnson Jackson PA [Primary Care Provider] - 1 Week Discharge Medications: New oxycodone 5 mg Tablet 5 mg PO BID Qty: 20 0RF Rx Instructions: Partial Fill upon patient request. metoprolol tartrate 25 mg Tablet 25 mg PO BID Qty: 60 0RF Protocol: Hold for SBP/HR < HOLD for SBP < : 90 HOLD for HR < : 60 insulin lispro [Humalog U-100 Insulin] 100 unit/mL Solution See Protocol subcut QIDACHS Qty: 10 0RF Protocol: Insulin Correction Scale Less than or equal to 110 ---- Give (units): 0 111 to 150 Give (units): 0 151 to 200 Give (units): 2 201 to 250 Give (units): 4 251 to 300 Give (units): 6 301 to 350 Give (units): 8 Greater than 350 Give (units): 10 Call MD if Blood Glucose > : 350 finasteride 5 mg Tablet 5 mg PO DAILY Qty: 30 0RF bicalutamide 50 mg Tablet 50 mg PO TID Qty: 90 0RF olanzapine 2.5 mg Tablet 2.5 mg PO Q4H PRN (Reason: Delirium) Qty: 20 0RF olanzapine 2.5 mg Tablet 2.5 mg PO DAILY Qty: 30 0RF polyethylene glycol 3350 17 gram Powder In Packet 17 g PO DAILY Qty: 30 0RF docusate sodium 100 mg Capsule 100 mg PO DAILY PRN (Reason: Constipation) Qty: 30 0RF tamsulosin 0.4 mg Capsule 0.8 mg PO DAILY Qty: 30 0RF gabapentin 100 mg Capsule 100 mg PO BID Qty: 60 0RF acetaminophen 325 mg Tablet 975 mg PO BID Qty: 30 0RF acetaminophen 325 mg Tablet 650 mg PO Q6H PRN (Reason: Pain, Moderate(Pain Scale 4-6)) Qty: 60 0RF Continued Eliquis 2.5 mg tablet 2.5 mg PO BID Qty: 60 0RF pravastatin 40 mg tablet 40 mg PO BEDTIME amlodipine 5 mg tablet 5 mg PO DAILY metformin 500 mg tablet extended release 24 hr 2,000 mg PO QAM Discontinued cefuroxime axetil 500 mg tablet 500 mg PO BID Qty: 14 0RF oxycodone-acetaminophen 5-325 mg tablet 1 tab PO DAILY PRN (Reason: pain) tamsulosin 0.4 mg capsule 0.4 mg PO DAILY lisinopril 40 mg tablet 40 mg PO DAILY clopidogrel 75 mg tablet 75 mg PO DAILY oxycodone 5 mg tablet 5 mg PO Q8H PRN (Reason: pain) Discharge Orders: Discharge Order (Routine); Ordered 03/14/23 Ordered By: Justine Donahue Diet: Diabetic diet Activity on Discharge: As tolerated Stand Alone Forms: Patient Portal Discharge page Care Plan Goals: continue all medications as prescribed increase dose of oxycodone to t.i.d. if tolerated 5 mg twice daily monitor blood sugars Health Concerns: unspecified dementia continue Zyprexa for behavioral issues and sundowning. Plan of Treatment: outpatient follow-up with primary care physician and Urology Assessment: as above
--- NOTE | 2023-03-14 10:53 | MHC.CM.PN ---
pt dcd today family notified amb booked for 3
[2023-03-14 11:05] LABS: Glucose, Whole Blood 291 mg/dL (60-115)
[2023-03-14 15:02] VITALS: BP 133/83; PULSE 92; RESP 18; TEMP 36.9; O2SAT 95
[2023-03-14 16:24] LABS: Glucose, Whole Blood 350 mg/dL (60-115)
== END 2023-03-14 17:33 | disposition skilled nursing facility (03) | DRG 722 ==
LOC: HO.ED 13:49 → HO.EDOVER 17:11 → HO.IMC 19:14 → HO.S3 01-05 17:09
PROVIDERS: Internal Medicine; Student in an Organized Health Care Education/Training Program; Urology; Admitting Provider Student in an Organized Health Care Education/Training Program; Emergency Provider Internal Medicine; PCP Physician Assistant Medical; Visit Provider Hospitalist
PROC: 0VB03ZX Excision of Prostate, Percutaneous Approach, Diagnostic (ICD-10-PCS; CPT 55700; principal; 2023-01-10 15:40)
DX: C61 Malignant neoplasm of prostate (principal); G93.41 Metabolic encephalopathy; J96.01 Acute respiratory failure with hypoxia; N17.9 Acute kidney failure, unspecified; F05 Delirium due to known physiological condition; C79.51 Secondary malignant neoplasm of bone; N13.6 Pyonephrosis; N13.8 Other obstructive and reflux uropathy; E87.20 Acidosis, unspecified; J98.11 Atelectasis; F03.90 Unspecified dementia, unspecified severity, without behavioral disturbance, psychotic disturbance, mood disturbance, and anxiety; D63.1 Anemia in chronic kidney disease; N18.2 Chronic kidney disease, stage 2 (mild); E11.22 Type 2 diabetes mellitus with diabetic chronic kidney disease; E86.0 Dehydration; D63.0 Anemia in neoplastic disease; D64.9 Anemia, unspecified; I48.0 Paroxysmal atrial fibrillation; G89.3 Neoplasm related pain (acute) (chronic); L98.419 Non-pressure chronic ulcer of buttock with unspecified severity; Z66 Do not resuscitate; N40.1 Benign prostatic hyperplasia with lower urinary tract symptoms; Z75.1 Person awaiting admission to adequate facility elsewhere; Z87.891 Personal history of nicotine dependence; Z79.84 Long term (current) use of oral hypoglycemic drugs; Z79.01 Long term (current) use of anticoagulants; Z79.899 Other long term (current) drug therapy
CPT/HCPCS: 36415; 70450; 70553; 71045; 76775; 76942; 78306; 80048; 80053; 81001; 82272; 82550; 82565; 82947; 83605; 83880; 84153; 84300; 85025; 85027; 85610; 87040; 87086; 88305; 92950; 93005; 93970; 97116; 97162; 97163; 97167; 99285; A9503; A9585; C1758; J1100; J1650; J1956; J2405; J3010

== ENCOUNTER 2022-12-31 16:56 | Outpatient (BNV) | payer MEDICARE, SELFPAY | END 2023-01-29 04:01 | PROVIDERS: Admitting Provider Student in an Organized Health Care Education/Training Program; Emergency Provider Internal Medicine; PCP Physician Assistant Medical; Visit Provider Internal Medicine Cardiovascular Disease | DX: I48.91 Unspecified atrial fibrillation (principal) | CPT/HCPCS: 93010 ==

== ENCOUNTER → 2022-12-31 16:56 | Outpatient (BNV) | payer MEDICARE, SELFPAY | PROVIDERS: Admitting Provider Student in an Organized Health Care Education/Training Program; Emergency Provider Internal Medicine; Visit Provider Internal Medicine | DX: E11.9 Type 2 diabetes mellitus without complications (principal); C61 Malignant neoplasm of prostate | CPT/HCPCS: 99223; 99231; 99232; 99233; 99239; 99429; 99497 ==